=== PATIENT | female | born 1980 | race Caucasian/White ===

== ENCOUNTER 2021-12-16 23:56 | Outpatient (CLI) | payer MEDICARE, MEDICAID, SELFPAY | END 2021-12-16 23:57 | disposition home or self-care (01) | LOC: AMB 12-24 08:33 | PROVIDERS: PCP Family Medicine; Visit Provider Family Medicine | DX: M54.9 Dorsalgia, unspecified (principal); R20.0 Anesthesia of skin; F10.10 Alcohol abuse, uncomplicated | CPT/HCPCS: A0425; A0427 ==

== ENCOUNTER 2021-12-28 02:02 | Outpatient (CLI) | payer MEDICARE, MEDICAID, SELFPAY | END 2021-12-28 02:03 | disposition home or self-care (01) | PROVIDERS: PCP Family Medicine; Visit Provider Family Medicine | DX: R22.43 Localized swelling, mass and lump, lower limb, bilateral (principal); R20.2 Paresthesia of skin | CPT/HCPCS: A0425; A0429 ==

== ENCOUNTER 2021-12-28 02:31 | Emergency (ER) | payer MEDICARE, MEDICAID, SELFPAY ==
[2021-12-28 02:34] VITALS: BP 117/69; PULSE 95; RESP 16; TEMP 36.2; O2SAT 99
--- NOTE | 2021-12-28 03:54 | ED_ITS ---
HPI - General Adult General Chief complaint: Extremity Pain/Injury, Lower Stated complaint: Swollen feet Time Seen by Provider: 12/28/21 02:54 Related Data Previous Rx's Medication Instructions Recorded dextroamphetamine-amphetamine 20 20 mg PO BID #60 tabs 12/25/21 mg tablet (Adderall) Allergies Allergy/AdvReac Type Severity Reaction Status Date / Time venlafaxine Allergy Unknown Verified 12/26/21 11:07 SPICE FLAVOR AdvReac Mild Unknown Uncoded 12/26/21 11:07 [facility] Medical History ADHD, predominantly inattentive type Anemia due to acute blood loss Anxiety Diet controlled White classification A1 gestational diabetes mellitus (GDM) Gastroenteritis History of anxiety History of cervical dysplasia (2009) History of difficulty sleeping History of psychosis History of spontaneous History of use of contraceptive intrauterine device (IUD) History of vaginal delivery Multigravida of advanced maternal age Pain in pelvis care Retained products of conception with hemorrhage Transfusion of blood during current hospitalization Vaginal bleeding Surgical History History of colposcopy History of elective (1998) History of elective History of loop electrical excision procedure (LEEP) (2010) History of spinal surgery (2008) Status post dilation and curettage (01/15/19) Status post dilation and curettage Status post primary low transverse section (01/10/19) Status post primary low transverse section Status post repair of anterior cruciate ligament (1994) Social History Narrative: Single, 2 kids, smoker, currently sober, unemployed Tobacco use Smoking Status: Current every day smoker What tobacco products do you use: cigarettes Smoking packs per day: 1 Smoking cigarettes per day: 20.0 Years smoked: 25 Smoking pack-years: 25.00 Do you use any of these nicotine containing products: None Second hand tobacco smoke exposure: No How often do you have a drink containing alcohol: 4 or more times a week How many standard drinks containing alcohol do you have on a typical day: 3 or 4 How often do you have six or more drinks on one occasion: Never AUDIT-C Alcohol total score: 5 Non-prescribed substance use: denies use service: No Exam Const: Vital Signs, click to edit/add: Vital Signs - 24 hr 12/28/21 02:34 12/28/21 03:57 Temperature 97.1 F L Pulse Rate [Right Pulse Oximeter] 95 72 Respiratory Rate 16 116 H Blood Pressure [Ri ght Upper Arm] 117/69 Pulse Oximetry 99 99 Oxygen Delivery Me thod Room Air Room Air Course Course Hospital Course: We spent most of our time discussing her previous testing for her neuropathy, potential etiologies for her symptoms, and her alcohol use. I have reassured her that her foot pain has been worked up fairly extensively in the past. I do not have anything really to add to that workup at this time. I suggested that if she really is uncomfortable with the diagnosis of alcohol related neuropathy, that she be seen by a neurologist to receive a final diagnosis. I discussed that I do not think she needs any additional imaging. We spent a lot of time talking about her upcoming alcohol treatment, which she seems to have very mixed feelings about. Overall, she seems comfortable not pursuing any workup regarding her feet. She seemed to appreciate the opportunity to discuss her feelings and concerns about her alcohol use and impending treatment. She is comfortable going home. Her fiance is at home with her 2-year-old daughter, and was not able to come pick her up. We were able to find a cab service to bring her home however. I think that is reasonable, I do think she has a little alcohol on board, but she is ambulatory, she is able to hold a very reasonable conversation, and I think she is safe to discharge home via cab. Vital Signs Vital signs: Initial Vital Signs Temperature 97.1 F L 12/28/21 02:34 Temperature Source Temporal Artery Scan 12/28/21 02:34 Pulse Rate 95 12/28/21 02:34 Pulse Rhythm 12/28/21 02:34 Respiratory Rate 16 12/28/21 02:34 Blood Pressure 117/69 12/28/21 02:34 Blood Pressure Mean 85 12/28/21 02:34 Pulse Oximetry 99 12/28/21 02:34 Oxygen Delivery Method 12/28/21 02:34 Vital Signs Temperature 97.1 F L 12/28/21 02:34 Pulse Rate 95 12/28/21 02:34 Respiratory Rate 16 12/28/21 02:34 Blood Pressure 117/69 12/28/21 02:34 Pulse Oximetry 99 12/28/21 02:34 Oxygen Delivery Method 12/28/21 02:34 Temperature 97.1 F L 12/28/21 02:34 Pulse Rate 72 12/28/21 03:57 Respiratory Rate 116 H 12/28/21 03:57 Blood Pressure 117/69 12/28/21 02:34 Pulse Oximetry 99 12/28/21 03:57 Oxygen Delivery Method 12/28/21 03:57 Discharge Plan Discharge Clinical Impression: Numbness and tingling of both lower extremities Patient Disposition: Home, Self-Care Condition: Stable Instructions: Peripheral Neuropathy (ED) Additional Instructions: Continue current medications. Alcohol treatment as planned for Wednesday. Prescriptions: No Action dextroamphetamine-amphetamine [Adderall] 20 mg tablet 20 mg PO BID Qty: 60 0RF Rx Instructions: administer doses at least 4-6 hours apart Follow Up/Referrals: Buck Young MD [Primary Care Provider] - Stand Alone Forms: [employer] Info Instructions
[2021-12-28 03:57] VITALS: PULSE 72; RESP 116; O2SAT 99
--- NOTE | 2021-12-28 06:48 | ED_ITS ---
HPI - General Adult General Date Seen: 12/28/21 Chief complaint: Extremity Pain/Injury, Lower Stated complaint: Swollen feet Time Seen by Provider: 12/28/21 02:54 Source: patient History of Present Illness HPI narrative: Patient is a 41-year-old woman with a history of alcohol use and neuropathy who presents by EMS with a complaint of pain in tingling in her feet. She does have a sunburn on the tops of her feet and legs from falling asleep in the sun yesterday, but her primary complaint is pain in the bottoms of her feet. She says that her feet were cramping earlier, and she was very worried about that. She says that her problem is because of her sciatic nerve and problems in her back. She initially seemed hesitant about the diagnosis of neuropathy. She did note that she had had 4 beers today. She tells me that she is entering into alcohol therapy on Wednesday, day after tomorrow. She is living currently at home with her fiance and 2-year-old daughter. She does not have any new symptoms tonight, pain in her feet is stable and ongoing. She just became fearful about it tonight, and worried that something might be wrong with her back. She did have an MRI here couple of months ago in September that did not show any significant findings. She was hospitalized in October at which time it was felt that she would likely need custodial placement, but it would appear at this time that she is living at home. She does tell me that her diet has improved and she has gained some weight. Related Data Previous Rx's Medication Instructions Recorded dextroamphetamine-amphetamine 20 20 mg PO BID #60 tabs 12/25/21 mg tablet (Adderall) Allergies Allergy/AdvReac Type Severity Reaction Status Date / Time venlafaxine Allergy Unknown Verified 12/26/21 11:07 SPICE FLAVOR AdvReac Mild Unknown Uncoded 12/26/21 11:07 Review of Systems Status of ROS: Reports: 10 or more systems reviewed and unremarkable except as noted in History and below [facility] Medical History ADHD, predominantly inattentive type Anemia due to acute blood loss Anxiety Diet controlled White classification A1 gestational diabetes mellitus (GDM) Gastroenteritis History of anxiety History of cervical dysplasia (2009) History of difficulty sleeping History of psychosis History of spontaneous History of use of contraceptive intrauterine device (IUD) History of vaginal delivery Multigravida of advanced maternal age Pain in pelvis care Retained products of conception with hemorrhage Transfusion of blood during current hospitalization Vaginal bleeding Surgical History History of colposcopy History of elective (1998) History of elective History of loop electrical excision procedure (LEEP) (2010) History of spinal surgery (2008) Status post dilation and curettage (01/15/19) Status post dilation and curettage Status post primary low transverse section (01/10/19) Status post primary low transverse section Status post repair of anterior cruciate ligament (1994) Social History Narrative: Single, 2 kids, smoker, currently sober, unemployed Tobacco use Smoking Status: Current every day smoker What tobacco products do you use: cigarettes Smoking packs per day: 1 Smoking cigarettes per day: 20.0 Years smoked: 25 Smoking pack-years: 25.00 Do you use any of these nicotine containing products: None Second hand tobacco smoke exposure: No How often do you have a drink containing alcohol: 4 or more times a week How many standard drinks containing alcohol do you have on a typical day: 3 or 4 How often do you have six or more drinks on one occasion: Never AUDIT-C Alcohol total score: 5 Non-prescribed substance use: denies use service: No Exam Narrative: Exam Narrative: Vital signs reviewed In general, an alert conversant woman. Appears comfortable. Very thin. Head: Normocephalic, atraumatic. Eyes: Pupils are equal reactive. Extraocular movements are full. Conjunctivae are anicteric. ENT: Mucous membranes are moist. Throat is normal. Neck: Supple without lymphadenopathy. Heart: Regular rate and rhythm. No murmur or rub. Lungs: Clear bilaterally. No increased work of breathing, crackles or wheezes. Abdomen: Soft and nontender. Extremities: Slight edema bilateral feet. Pulses intact. She has erythema consistent with sunburn across the tops of both feet and shins. Neurologic: Patient is alert and oriented to person and place. Speech is fluent. Face is symmetric. Moves all extremities equally. Gait is stable. Affect: Slightly intoxicated. Skin: Warm and dry. Well perfused. Const: Vital Signs, click to edit/add: Vital Signs - 24 hr 12/28/21 02:34 12/28/21 03:57 Temperature 97.1 F L Pulse Rate [Right Pulse Oximeter] 95 72 Respiratory Rate 16 116 H Blood Pressure [Ri ght Upper Arm] 117/69 Pulse Oximetry 99 99 Oxygen Delivery Me thod Room Air Room Air Documenting provider has reviewed patient's vital signs: yes Course Course Hospital Course: We spent most of our time discussing her previous testing for her neuropathy, potential etiologies for her symptoms, and her alcohol use. I have reassured her that her foot pain has been worked up fairly extensively in the past. I do not have anything really to add to that workup at this time. I suggested that if she really is uncomfortable with the diagnosis of alcohol related neuropathy, that she be seen by a neurologist to receive a final diagnosis. I discussed that I do not think she needs any additional imaging. We spent a lot of time talking about her upcoming alcohol treatment, which she seems to have very mixed feelings about. Overall, she seems comfortable not pursuing any workup regarding her feet. She seemed to appreciate the opportunity to discuss her feelings and concerns about her alcohol use and impending treatment. She is comfortable going home. Her fiance is at home with her 2-year-old daughter, and was not able to come pick her up. We were able to find a cab service to bring her home however. I think that is reasonable, I do think she has a little alcohol on board, but she is ambulatory, she is able to hold a very reasonable conversation, and I think she is safe to discharge home via cab. Vital Signs Vital signs: Initial Vital Signs Temperature 97.1 F L 12/28/21 02:34 Temperature Source Temporal Artery Scan 12/28/21 02:34 Pulse Rate 95 12/28/21 02:34 Pulse Rhythm 12/28/21 02:34 Respiratory Rate 16 12/28/21 02:34 Blood Pressure 117/69 12/28/21 02:34 Blood Pressure Mean 85 12/28/21 02:34 Pulse Oximetry 99 12/28/21 02:34 Oxygen Delivery Method 12/28/21 02:34 Vital Signs Temperature 97.1 F L 12/28/21 02:34 Pulse Rate 95 12/28/21 02:34 Respiratory Rate 16 12/28/21 02:34 Blood Pressure 117/69 12/28/21 02:34 Pulse Oximetry 99 12/28/21 02:34 Oxygen Delivery Method 12/28/21 02:34 Temperature 97.1 F L 12/28/21 02:34 Pulse Rate 72 12/28/21 03:57 Respiratory Rate 116 H 12/28/21 03:57 Blood Pressure 117/69 12/28/21 02:34 Pulse Oximetry 99 12/28/21 03:57 Oxygen Delivery Method 12/28/21 03:57 Discharge Plan Discharge Clinical Impression: Numbness and tingling of both lower extremities Patient Disposition: Home, Self-Care Condition: Stable Instructions: Peripheral Neuropathy (ED) Additional Instructions: Continue current medications. Alcohol treatment as planned for Wednesday. Prescriptions: No Action dextroamphetamine-amphetamine [Adderall] 20 mg tablet 20 mg PO BID Qty: 60 0RF Rx Instructions: administer doses at least 4-6 hours apart Follow Up/Referrals: Buck Young MD [Primary Care Provider] - Stand Alone Forms: [employer] Info Instructions
== END 2021-12-28 04:08 | disposition home or self-care (01) ==
PROVIDERS: Emergency Provider Emergency Medicine; PCP Family Medicine
DX: R20.0 Anesthesia of skin (principal)
CPT/HCPCS: 99282; 99283

== ENCOUNTER 2022-04-09 22:48 | Outpatient (CLI) | payer MEDICARE, MEDICAID, SELFPAY ==
--- OUTSIDE RECORDS SUMMARY | 2022-05-04 21:23 | XMS_ITS | Encounter Summary ---
:1980 Author Organization [place] Address [address] [place] [address] Care Team Providers Name Role Phone Danette Shepherd MD Primary Care Provider Reason for Referral Diagnostic Imaging Ultrasound (Routine) - Closed Specialty Diagnoses / Procedures Referred By Contact Refer red To Contact Diagnoses related condition, antepartum Lolita Montoya Procedures [facility] [address] [place] [address] Referral ID Status Reason Start Date Expiration Date Visits Requ ested Visits Authorized [id number] Closed 12/19/2018 12/19/2019 1 1 Reason for Visit Diagnostic Imaging Ultrasound (Routine) - Closed Specialty Diagnoses / Procedures Referred By Contact Refer red To Contact Diagnoses related condition, antepartum Lolita Montoya Procedures [facility] [address] [place] [address] Referral ID Status Reason Start Date Expiration Date Visits Requ ested Visits Authorized [id number] Closed 12/19/2018 12/19/2019 1 1 Encounter Details Date Type Department Care Team Description 01/03/2019 Hospital Encounter [facility] Lolita Montoya [facility] [address] [place] [address] related Maternal Reba Veliz DO [address] [facility] [address] [place], [place] [address] condition, Medicine Center antepartum [place] [address] [facility] [address] [place] [address] Social History Tobacco Use Types [...] Name Priority Date/Time Associated Comments Diagnosis [facility] COMPREHENSIVE Routine 01/03/2019 12:46 relate d Results for this SINGLE F/U PM CDT condition, procedure are i n antepartum the results section. documented in this encounter Results [facility] Comprehensive Single F/U (01/03/2019 12:46 PM CDT) [...] JEWELL ESTRELLA Study Date: 12:00pm Pat. NO: [id number] Referring ??: JOSE RAUL WESTBROOK SALCEDO Site: [facility] Associate: Marce Gustafson RDMS : 1980 Age: 38 [...] 5 lb 3 ?oz EFW by ?Hadlock ([id number]) ANATOMY The following structures appear normal: Head / Neck ? Cranium. Head size. Head shape. Lateral ventricles. Midline falx. Cavum septi pellucidi. Cerebellum. Cisterna magna. Thalami. Face ? Lips. Profile. Nose. Heart / Thorax ?4-chamber view. RVOT view. LVOT view. 3-ynskab-ycamxmk view. ? Diaphragm. Abdomen ? Stomach. Kidneys. [...] 6lbs at term. Recommend biophysical profiles in [place] to assess for placental insufficiency (oligo, etc). [...] Pat. Name:Reba ESTRELLA Date:2018 12:00pm Pat. NO: [id number] MD:LOLITA Redd [facility] Site:[place]inagrapher:Marce Gustafson RDMS :1980Age:38 INDICATION Check growth METHOD [...] 5 lb 3 oz EFW by Hadlock ([id number]) ANATOMY The following structures appear normal: Head / Neck Cranium. Head size. Head sha pe. Lateral ventricles. Midline falx. Cavum septi pellucidi. Cerebellum. Cisterna magna. Thalami. Face Lips. Profile. Nose. Heart / Thorax 4-chamber view. RVOT view . LVOT view. 0-jdtoym-axfdyuh view. Diaphragm. Abdomen Stomach. Kidneys. Bladder. Spine [...] RECOMMENDATION We discussed the findings on today's [facility] with the patient. This pattern of growth is most likely re lated to constitutional smallness. Her first baby was 6lbs at term. Recommend biophysical profiles in [place] to assess for placental insufficiency (oligo, etc). [...] The BPP is reassuring. Lolita Salcedo Teresa [facility] US ORDERABLES documented in this encounter Visit Diagnoses Diagnosis related condition, antepartum documented in this encounter Care Teams Account Retention Representative Relationship Specialty Start Date End Date Danette Shepherd MD PCP - General [facility] Practice 09/13/13 12/16/21 [facility] [address] [facility] [place] [address] documented as of this encounter
--- OUTSIDE RECORDS SUMMARY | 2022-05-04 21:23 | XMS_ITS | Encounter Summary ---
:1980 Author Organization [place] Address [address] [place] [address] Care Team Providers Name Role Phone Danette Shepherd MD Primary Care Provider Reason for Referral Mental Health Outpatient (Routine) - Closed Specialty Diagnoses / Procedures Referred By Contact Refer red To Contact Diagnoses Spell of behavior change Alva Leone MD [address] [facility] [address] [place], [place] [address] Referral ID Status Reason Start Date Expiration Date Visits Requ ested Visits Authorized [id number] Closed 04/24/2019 04/23/2020 1 1 HOUSE SITTER Reason for Visit Reason Comments New Patient Encounter Details Date Type Department Care Team Description 04/24/2019 Office Visit [facility] NEUROSPECIALTIES Alva Leone of behavior 5775 Aníbal Greene MD change (Primary Dx) [place] [address] [facility] [address] [place] [address] [phone] (Wo rk) Social History Tobacco Use Types [...] Comments Blood Pressure 143/80 04/24/2019 3:53 PM PET HOUSE SITTER Pulse - - Temperature - - Respiratory Rate - - Oxygen Saturation - - Inhaled Oxygen Concentration - - Weight 57.9 kg (127 lb 9.6 oz) 04/24/2019 3:53 PM PET HOUSE SITTER Height - - Body Mass Index 20.6 [...] evaluation shows no pronator drift, normal fingertapping, tqfszd-ljve-ulseoa and rrwt-xitw-ddxj. The patient has good strength in the [...] Alva Leone MD cc: Danette Shepherd MD [address] [address] ALVA LEONE MD MT: MISTY Name: JEWELL ESTRELLA Account: [id number] : 1980 Service Date: 04/24/2019 Document: [id number] 05/04 addendum: reviewed normal EEG with mother Nelly. HOUSE SITTER documented in this encounter Plan of Treatment [...] symptoms documented in this encounter Care Teams Business Reporting Developer Relationship Specialty Start Date End Date Danette Shepherd MD PCP - General Family Practice 09/13/13 12/16/21 [facility] [address] [place] [address] documented as of this encounter
--- OUTSIDE RECORDS SUMMARY | 2022-05-04 21:23 | XMS_ITS | Encounter Summary ---
:1980 Author Organization [place] Address [address] [place] [address] Care Team Providers Name Role Phone Danette Shepherd MD Primary Care Provider Reason for Visit Reason Comments Ultrasound SGA Encounter Details Date Type Department Care Team Description 11/11/2018 PRE VISIT [facility] Maternal Tavia Garza, Ultrasound (SGA) Medicine Center BRIGID [place] [address] [facility] [address] [place] [address] Social History Tobacco Use [...] on filedocumented in this encounter Care Teams Knockdown Worker Relationship Specialty Start Date End Date Danette Shepherd MD PCP - General Family Practice 09/13/13 12/16/21 [facility] [address] [place] [address] documented as of this encounter
--- OUTSIDE RECORDS SUMMARY | 2022-05-04 21:23 | XMS_ITS | Encounter Summary ---
:1980 Author Organization [place] Address [address] [place] [address] Care Team Providers Name Role Phone Danette Shepherd MD Primary Care Provider Reason for Referral Diagnostic Imaging Ultrasound (Routine) - Closed Specialty Diagnoses / Procedures Referred By Contact Refer red To Contact Diagnoses related condition, antepartum Lolita Montoya Procedures [facility] US Comprehensive Single F/U [facility] [address] [place] [address] Referral ID Status Reason Start Date Expiration Date Visits Requ ested Visits Authorized [id number] Closed 12/19/2018 12/19/2019 1 1 Encounter Details Date Type Department Care Team Description 12/19/2018 Transcribe Orders [facility] Porfirio Shrestha, Pregn fahad related Maternal Lolita Gottlieb condition, Medicine Center [facility] antepartum (Primary [facility] Dx) [address] [facility] [address] [place] [address] [phone] Social History Tobacco Use Types Packs/Day Years Used Date Smoking Tobacco: Every Day Cigarettes 5 Comments: 5-6 cigarettes daily Alcohol Use Standard Drinks/Week Comments No 0 (1 standard drink = 0.6 oz pure alcoho l) Sex Assigned at Date Recorded Not on file documented as of this encounter Plan of Treatment Not on filedocumented as of this encounter Results [facility] US Comprehensive Single F/U (01/03/2019 12:46 PM [...] JEWELL ESTRELLA Study Date: 12:00pm Pat. NO: [id number] Referring ??: JOSE RAUL MARTINEZ Site: [facility] Cane Furniture Maker: Marce Gustafson RDMS : 1980 Age: 38 [...] 5 lb 3 ?oz EFW by ?Hadlock ([id number]) ANATOMY The following structures appear normal: Head / Neck ? Cranium. Head size. Head shape. Lateral ventricles. Midline falx. Cavum septi pellucidi. Cerebellum. Cisterna magna. Thalami. Face ? Lips. Profile. Nose. Heart / Thorax ?4-chamber view. RVOT view. LVOT view. 9-nxwvmj-horpgpr view. ? Diaphragm. Abdomen ? Stomach. Kidneys. [...] 6lbs at term. Recommend biophysical profiles in [place] to assess for placental insufficiency (oligo, etc). [...] [place]. Name:Reba ESTRELLA Date:2018 12:00pm Pat. NO: [id number] MD:LOLITA Redd [facility]Marce Gustafson RDMS :1980Age:38 INDICATION Check growth [...] 5 lb 3 oz EFW by Hadlock ([id number]-FL) ANATOMY The following structures appear normal: Head / Neck Cranium. Head size. Head sha pe. Lateral ventricles. Midline falx. Cavum septi pellucidi. Cerebellum. Cisterna magna. Thalami. Face Lips. Profile. Nose. Heart / Thorax 4-chamber view. RVOT view . LVOT view. 7-nzplki-jkvping view. Diaphragm. Abdomen Stomach. Kidneys. Bladder. Spine [...] 6lbs at term. Recommend biophysical profiles in [place] to assess for placental insufficiency (oligo, etc). [...] The BPP is reassuring. Lolita Shrestha IMTeresa [facility] US ORDERABLES documented in this encounter Visit Diagnoses Diagnosis related condition, antepartum - Primary related condition, antepartum documented in this encounter Care Teams Padded Products Inspector Trimmer Relationship Specialty Start Date End Date Danette Shepherd MD PCP - General Family Practice 09/13/13 12/16/21 [facility] [address] [place] [address] documented as of this encounter
--- OUTSIDE RECORDS SUMMARY | 2022-05-04 21:23 | XMS_ITS | Encounter Summary ---
:1980 Author Organization [place] Address [address] [place] [address] Care Team Providers Name Role Phone Danette [...] on filedocumented in this encounter Care Teams Forest Fire Prevention Specialist Relationship Specialty Start Date End Date Danette Shepherd MD PCP - General Family Practice 09/13/13 12/16/21 [facility] [address] [place] [address] documented as of this encounter
--- OUTSIDE RECORDS SUMMARY | 2022-05-04 21:23 | XMS_ITS | Encounter Summary ---
:1980 Author Organization [place] Address [address] [place] [address] Care Team Providers Name Role Phone Danette Shepherd MD Primary Care Provider Reason for Referral Diagnostic Imaging Ultrasound (Routine) - Closed Specialty Diagnoses / Procedures Referred By Contact Refer red To Contact Diagnoses related condition, antepartum Tanya Watson NP Procedures [facility] [address] [place] [address] Fax: Referral ID Status Reason Start Date Expiration Date Visits Requ ested Visits Authorized [id number] Closed 11/08/2018 11/08/2019 1 1 (Routine) - Closed Specialty Diagnoses / Procedures Referred By Contact Refer red To Contact Diagnoses related condition, antepartum Tanya Watson NP [facility] [address] [place] [address] Fax: Referral ID Status Reason Start Date Expiration Date Visits Requ ested Visits Authorized [id number] Closed 11/08/2018 11/08/2019 1 1 Encounter Details Date Type Department Care Team Description 11/08/2018 [facility] Tanya Watson P regnancy related Maternal TRUCK TRAILER FINAL INSPECTOR condition, Medicine Center [facility] antepartum (Primary [facility] Dx) [address] [address] [phone] Social History Tobacco Use Types Packs/Day Years [...] 05/07/2019 documented as of this encounter Results [facility] Comprehensive Single (11/16/2018 2:24 PM CDT) Anatomical [...] JEWELL ESTRELLA Study Date: 1:26pm Pat. NO: [id number] Referring ??MD: ANGEL KITCHEN Site: [facility] Customer Service Representative Teller: Tanya Willett RD MS : 1980 Age: [...] 2 lb 9 ?oz EFW by ?Hadlock ([id number]) Head / Face / Neck Biometry: Dental Laboratory Assistant ? 2.2 ? mm CM ?6.5 ? [...] cava. Inferior vena cava. 3-vessel view. ? 2-vmvfie-ynjxsck view. Cardiac position. Cardiac size. Cardiac rhythm. [...] Pat. Name:Reba ESTRELLA Date:2018 1:26pm Pat. NO: [id number] MD:BIANCA KITCHEN [facility]:Tanya Willett RDMS :1980Age:38 INDICATION SGA on outside [...] 2 lb 9 oz EFW by Hadlock ([id number]-FL) Head / Face / Neck Biometry: Dental Laboratory Assistant 2.2 mm CM 6.5 mm Nasal bone [...] vena cava. Inferior vena cava. 3-vessel view. 5-xwkakr-fhnbtsg view. Cardiac position . Cardiac size. Cardiac [...] antepartum documented in this encounter Care Teams Self Pay Representative Relationship Specialty Start Date End Date Danette Shepherd MD PCP - General Family Practice 09/13/13 12/16/21 [facility] [address] [place] [address] documented as of this encounter
--- OUTSIDE RECORDS SUMMARY | 2022-05-04 21:23 | XMS_ITS | Clinical Summary ---
:1980 Author Organization [place] Address [address] [place] [address] Care Team Providers Name Role Phone [facility], [facility] Primary Care Provider [phone] Allergies Active Allergy Reactions Severity Noted [...] (127 lb 9.6 oz) 04/24/2019 3:53 PM CONSULTING BUSINESS DEVELOPER Height 167.6 cm (5' 6) 09/02/2017 11:17 [...] Dates Phone Addre ss Type Group [facility] [id number] 2021-Presen [phone] [address] HMO t 0 [place] [address] MEDICARE MEDICARE [id number] 2017-Presen [phone] ATTN CL AIMS Medicare t 0 [address] [place] [address] Guarantor Name Account Type Relation to Date of Phone Billing Patient Address Jewell Lambert Personal/Family Self 1980 [phone] (Home) [place] [address] Jewell Lambert Personal/Family Self 1980 [phone] [address] (Home) [place] [address] Jewell Lambert Personal/Family Self 1980 [phone] (Home) [place] [address] Jewell Lambert Worker's Self 1980 [phone] [employer] 4 (Home) [place] [id number] Care Teams Trade Facilitator Relationship Specialty Start Date End Date [facility] PCP - General 12/17/21 [address] [place] [address]
--- OUTSIDE RECORDS SUMMARY | 2022-05-04 21:23 | XMS_ITS | Encounter Summary ---
:1980 Author Organization [place] Address [address] [place] [address]. [place] [address] Care Team Providers Name Role Phone Danette Shepherd MD Primary Care Provider Reba Veliz DO Unavailable [phone] Jairon Greene MD Unavailable [facility], Rosette [place] Primary Care Provider [phone] Reason for Referral (Routine) - Closed Specialty Diagnoses / Procedures Referred By Contact Refer red To Contact Diagnoses related condition, antepartum Tatiana Montoya [facility] [address] [place] [address] Referral ID Status Reason Start Date Expiration Date Visits Requ ested Visits Authorized [id number] Closed 12/19/2018 12/19/2019 1 1 Encounter Details Date Type Department Care Team Description 12/19/2018 Transcribe Orders [facility] Porfirio Shrestha, Pregn fahad related Maternal Tatiana Gottlieb condition, Medicine Center [facility] antepartum (Primary [facility] Dx) [address] 1999 [facility] [address] [place] [address] [phone] Social History Tobacco Use Types Packs/Day Years [...] Primary documented in this encounter Care Teams Ditch Digger Relationship Specialty Start Date End Date Danette Shepherd MD PCP - General Family Practice 09/13/13 12/16/21 [facility] [address] [place] [address] [facility] PCP - General 12/17/21 [place] [address] [place] [address] Reba Veliz Assigned OBGYN Provider 03/15/20 07/06/20 DO Silvina [address] [facility] [address] [place] [address] Jairon Greene, Assigned Neuroscience 03/15/20 10/26/20 Provider 420 [facility] [address] [place] [address] documented as of this encounter
--- OUTSIDE RECORDS SUMMARY | 2022-05-04 21:23 | XMS_ITS | Encounter Summary ---
:1980 Author Organization [place] Address [address] [place] [address]. [place] [address] Care Team Providers Name Role Phone Danette [...] W/O CONTRAST HC DOPPLER ECHO PULSED, [place] [address] HC DOPPLER ECHO PULSED, F/U OR LIMITED HC DOPPLER ECHO COLOR FLOW VELOCITY MAP Referral ID Status Reason Start Date Expiration Date Visits Requ ested Visits Authorized [id number] Closed 11/16/2018 11/16/2019 1 1 Reason for Visit Reason Comments Ultrasound L2-EFW 8 % on outside US Encounter Details Date Type Department Care Team Description 11/16/2018 Office Visit [facility] Tanya Watson, [facility] [address] [place] [address] Suspected Maternal Camille Ponce MD [address] [place] [address] [place] [address] anomaly, antepartum, Medicine Center single or un specified Kristine fetus (Primary Dx) [address] [place] [phone] Social History Tobacco Use Types Packs/Day Years [...] AM CDT Narrative 12/16/2018 11:50 AM CDT [id number]^KRIS^CAMILLE^KENDRA ?Study ID: [id number] ?[facility] ?[facility] ?[address] ?[place] [address] ? Echocardiogram __ Name: CRISTINABRADLEYJEWELL Study Date: [...] 01/28/2019. Gestational age: 33+6. Deliver y at: [place]. Specific Indication: echocar diogram performed for fetus [...] the left atriu m. There is laminar ckkwh-mq-ucky shunting across the foramen ovale. Atrioventricular valves: [...] note might be different from the original. [id number]^KRIS^CAMILLE^KENDRA Study ID: [id number] [facility]'[address] [address] Echocardiogram __ Name: JEWELL ESTRELLA Study Date: 12/16/2018 11:00 AM Patient Location: [facility] Gender: Female Patient Class: Outpatient : 1980 Age: 38 yrs Ordering Provider: CAMILLE PONCE Referring Provider: CAMILLE PONCE Performed By: Sidra Gonsalves RDCS Reading Physician: Nathaly Steel MD Reason For Study: Suspected anomal y, antepartum, single or unspecified fetus Data: Number of fetuses: This is a headley gestation. Due date: 01/28/2019. Gestational age: 33+6. Deliver y at: [place]. Specific Indication: echocar diogram performed for fetus [...] the left atriu m. There is laminar mrhju-ga-bgep shunting across the foramen ovale. Atrioventricular valves: [...] fetus documented in this encounter Care Teams Floor Cashier Relationship Specialty Start Date End Date Danette Shepherd MD PCP - General Family Practice 09/13/13 12/16/21 [facility] [address] [place] [address] documented as of this encounter
--- OUTSIDE RECORDS SUMMARY | 2022-05-04 21:23 | XMS_ITS | Encounter Summary ---
:1980 Author Organization [place] Address [facility] [place] [address] Care Team Providers Name Role Phone Danette Shepherd MD Primary Care Provider Reba Veliz DO Unavailable [phone] Jairon Greene MD Unavailable Reason for Visit Reason Comments Results Encounter Details Date Type Department Care Team Description 01/04/2018 [facility] Nereyda Beatty [address] [address] Social History Tobacco Use Types [...] on filedocumented in this encounter Care Teams Electric Motor Winders Assembler Relationship Specialty Start Date End Date Danette Shepherd MD PCP - General Family Practice 09/13/13 12/16/21 [facility] [address] [place] [address] Reba Veliz Assigned OBGYN Provider 03/15/20 07/06/20 DO Silvina [address] [facility] [address] [place] [address] Jairon Greene, Assigned Neuroscience 03/15/20 10/26/20 Provider 420 [facility] [address] [place] [address] documented as of this encounter
--- OUTSIDE RECORDS SUMMARY | 2022-05-04 21:23 | XMS_ITS | Encounter Summary ---
:1980 Author Organization [place] Address [address] [place] [address] Care Team Providers Name Role Phone Danette [...] W/O CONTRAST HC DOPPLER ECHO PULSED, [place] [address] HC DOPPLER ECHO PULSED, F/U OR LIMITED HC DOPPLER ECHO COLOR FLOW VELOCITY MAP Referral ID Status Reason Start Date Expiration Date Visits Requ ested Visits Authorized [id number] Closed 11/16/2018 11/16/2019 1 1 Reason for [...] W/O CONTRAST HC DOPPLER ECHO PULSED, [place] [address] HC DOPPLER ECHO PULSED, F/U OR LIMITED HC DOPPLER ECHO COLOR FLOW VELOCITY MAP Referral ID Status Reason Start Date Expiration Date Visits Requ ested Visits Authorized [id number] Closed 11/16/2018 11/16/2019 1 1 Encounter Details Date Type Department Care Team Description 12/16/2018 [facility] anomaly, antepartum, [facility] [address] [facility] e or [facility] [place] [address] unspecified fetus [address] [facility] [place] [place], [place] [address] Social History Tobacco Use Types Packs/Day [...] AM CDT Narrative 12/16/2018 11:50 AM CDT [id number]^PONCE^CAMILLE^KENDRA ?Study ID: [id number] ?[facility] ?[facility] ?[address] ?[place] [address] ? Echocardiogram __ Name: JEWELL ESTRELLA Study Date: 12/16/2018 11:00 AM ? Patient Location: [facility] Gender: Female ?Patient Class: Outpatient : 1980 ? Age: 38 yrs Ordering Provider: CAMILLE PONCE Referring Provider: CAMILLE PONCE Performed By: Sidra Gonsalves RDCS Reading Physician: Nathaly Steel MD Reason For Study: Suspected anomal y, antepartum, single or unspecified fetus Data: Number of fetuses: This is a headley gestation. Due date: 01/28/2019. Gestational age: 33+6. Deliver y at: [place]. Specific Indication: echocar diogram performed for fetus [...] the left atriu m. There is laminar celqn-rx-crmg shunting across the foramen ovale. Atrioventricular valves: [...] note might be different from the original. [id number]^KRIS^CAMILLE^KENDRA Study ID: [id number] [facility] [address] [place] [address] Echocardiogram __ Name: JEWELL ESTRELLA Study Date: 12/16/2018 11:00 AM Patient Location: [facility] Gender: Female Patient Class: Outpatient : 1980 Age: 38 yrs Ordering Provider: CAMILLE PONCE Referring Provider: CAMILLE PONCE Performed By: Sidra Gonsalves RDCS Reading Physician: Nathaly Steel MD Reason For Study: Suspected anomal y, antepartum, single or unspecified fetus Data: Number of fetuses: This is a headley gestation. Due date: 01/28/2019. Gestational age: 33+6. Deliver y at: [place]. Specific Indication: echocar diogram performed for fetus [...] the left atriu m. There is laminar sdzmi-gh-mhwm shunting across the foramen ovale. Atrioventricular valves: [...] fetus documented in this encounter Care Teams Electronic Data Interchange Specialist Relationship Specialty Start Date End Date Danette Shepherd MD PCP - General Family Practice 09/13/13 12/16/21 [facility] [address] [place] [address] documented as of this encounter
--- OUTSIDE RECORDS SUMMARY | 2022-05-04 21:23 | XMS_ITS | Encounter Summary ---
:1980 Author Organization [place] Address [facility] [place] [address] Care Team Providers Name Role Phone Danette Shepherd MD Primary Care Provider Reason for Visit Reason Comments Ultrasound growth Encounter Details Date Type Department Care Team Description 01/03/2019 Office Visit [facility] Ksenia Shrestha [facility] [address] [place] [address] Small for gestational Maternal Reba Veliz DO [address] [place] [address] [place], [place] [address] age fetus affecting Medicine Center management o f mother, Opp third trimester, not [address] [place] applicab le or [address] unspecified fetus [place], [place] (Primary Dx) [address] Social History Tobacco [...] y documented in this encounter Care Teams X Ray Operator Relationship Specialty Start Date End Date Danette Shepherd MD PCP - General Family Practice 09/13/13 12/16/21 [facility] [address] [place] [address] documented as of this encounter
--- OUTSIDE RECORDS SUMMARY | 2022-05-04 21:23 | XMS_ITS | Encounter Summary ---
:1980 Author Organization [place] Address [address] [place] [address]. [place] [address] Care Team Providers Name Role Phone Danette Shepherd MD Primary Care Provider Encounter Details Date Type Department Care Team Description 12/14/2017 [facility] [place] [phone] [place] [address] (Wo rk) Social History Tobacco [...] on filedocumented in this encounter Care Teams Rack Room Worker Relationship Specialty Start Date End Date Danette Shepherd MD PCP - General Family Practice 09/13/13 12/16/21 [facility] [address] [place] [address] documented as of this encounter
--- OUTSIDE RECORDS SUMMARY | 2022-05-04 21:23 | XMS_ITS | Encounter Summary ---
:1980 Author Organization [place] Address [address] [place] [address] Care Team Providers Name Role Phone Danette [...] on filedocumented in this encounter Care Teams Unified Communications Engineer Relationship Specialty Start Date End Date Danette Shepherd MD PCP - General Family Practice 09/13/13 12/16/21 [facility] [address] [place] [address] documented as of this encounter
--- OUTSIDE RECORDS SUMMARY | 2022-05-04 21:23 | XMS_ITS | Encounter Summary ---
:1980 Author Organization [place] Address [address] [place] [address] Care Team Providers Name Role Phone Danette [...] on filedocumented in this encounter Care Teams Development Coach Relationship Specialty Start Date End Date Danette Shepherd MD PCP - General Family Practice 09/13/13 12/16/21 [facility] [address] [place] [address] documented as of this encounter
--- OUTSIDE RECORDS SUMMARY | 2022-05-04 21:23 | XMS_ITS | Encounter Summary ---
:1980 Author Organization [place] Address [address] [place] [address] Care Team Providers Name Role Phone Clinic, [facility] Primary Care Provider [phone] Reason for Visit Reason Comments Back Pain Encounter Details Date Type Department Care Team Description 12/17/2021 Emergency [facility] Mitra Carroll, Beryl fall bilateral low [facility] back pain with [address] [facility] bilateral sciatica [facility] [phone] [facility] [phone] [place], [place] [address] (Wo rk) Social History [...] History: ACL repair Lumbar arthoplasty and fusion Seminary teeth extraction Leep procedure Family History: Mother-Anxiety [...] instrumentation, arachnoiditis, an infectious/inflammatory process (such as Guillain-Mooers syndrome, Lyme disease or chronic inflammatory demyelinating [...] Bilirubin Urine Negative Ketones Urine Negative Specific Lugoff Urine 1.002 (*) Blood Urine Negative pH [...] this time. Patient does live in the [facility], Lyme testing was obtained and pending. Advised [...] is NEGATIVE. No change in treatment per [facility] ED Lab Result Lyme Disease [...] Phon e Number [facility] SPECIAL[facility] CORE/PROT/ENDO Specialty [place], [place] [address] Core/Prot/Endo [address] [facility] [address] Building, Room 3-[facility] Lumbar spine MRI w & w/o [...] instrumentation, arachnoiditis, an infectious/inflammatory process (such as Guillain-Mooers syndrome, Lyme disease or chronic inflammatory demyelinating polyneuropathy) or even leptomeningeal metastatic disease (if the patient has a history of malignancy), among other etiologies. Narrative 12/17/2021 6:27 AM CDT EXAM: MR LUMBAR SPINE WITHOUT AND WITH CONTRAST LOCATION: [facility] DATE/TIME: 12/17/2021, 3:26 AM INDICATION: Low back [...] neural foraminal stenosis. L5-S1: Interbody spacer placement. Phillips us fusion. Bilateral facet arthropathy. Dorsal osteophytic ridging along the midline. No significant central spinal canal stenosis. No significant neural foraminal stenosis. Procedure Note Nick Kathleen MD - 12/17/2021Form atting of this note might be different from the original. EXAM: MR LUMBAR SPINE WITHOUT AND WITH C ONTRAST LOCATION: [facility] DATE/TIME: 12/17/2021, 3:26 AM INDICATION: Low back [...] neural foraminal stenosis. L5-S1: Interbody spacer placement. Phillips us fusion. Bilateral facet arthropathy. Dorsal osteophytic [...] instrumentation, arachnoiditis, an infectious/inflammatory process (such as Guillain-Mooers syndrome, Lyme disease or chronic inflammatory demyelinating polyneuropathy) or even leptomeningeal metastatic disease (if the patient has a history of malignancy), among other etiologies. Mitra Carroll MD IMG MRI ORDERABLES iStat HCG Qualitative , POCT (12/17/2021 2:14 AM CDT) [facility] Method Time Signature HCG Negative Negative, [...] Code Phon e [place] [address] Care Lab [address] Lab (1st floor, no room number) (ABNORMAL) UA with Microscopic reflex to Culture (12/17/2021 2:06 AM CDT) [facility] Method Time Signature Color Urine Straw Colorless, 12/17/2021 [facility] Straw, Light 2:17 AM CDT Yellow, Yellow Appearance Urine Clear Clear 12/17/2021 RH LABORATOR Y 2:17 AM CDT Glucose Urine Negative Negative 12/17/2021 [facility] mg/dL 2:17 AM CDT Bilirubin Urine Negative Negative 12/17/2021 [facility] 2:17 AM CDT Ketones Urine Negative Negative 12/17/2021 [facility] mg/dL 2:17 AM CDT Specific Lugoff 1.002 (L) 1.003 - 12/17/2021 RH LABORATOR [...] Address City/State/ZIP [place] [phone] Care Lab [address] Lab (1st floor, no room number) [...] Address City/State/ZIP [place] [phone] Care Lab [address] Lab (1st floor, no room number) [...] Address City/State/ZIP [place] [address] Care Lab [address] Lab (1st floor, no room number) [...] LAB - BLOOD ORDERABLES Performing Organization Address City/[facility]/ZIP Code [place] [address] Care Lab [address] Lab (1st floor, no room number) [...] and gender (Antoinette et al., NEJM, DOI: 10.1056/[id number]) Specimen Anatomical Collection Method / Collection Time Recei gisele Time (Source) Location / Volume Laterality Blood VENOUS LINE / Venipuncture / 12/17/2021 2:05 07/27/202 2 2:10 Unknown Unknown AM CDT AM CDT Mitra Carroll MD LAB - BLOOD ORDERABLES Performing Organization Address City/State/[place] [address] Care Lab [address] [...] analgesic side effects. Hold while on IV DATA INTEGRATION ARCHITECT or with regular IV opioid dosing. sodium [...] analgesic side effects. Hold while on IV DATA INTEGRATION ARCHITECT or with regular IV opioid dosing. documented in this encounter Care Teams Chemical Checker Relationship Specialty Start Date End Date [facility], [facility] PCP - General 12/17/[address] [place] [address] documented as of this encounter
--- OUTSIDE RECORDS SUMMARY | 2022-05-04 21:23 | XMS_ITS | Encounter Summary ---
:1980 Author Organization [place] Address [facility] [place] [address] Care Team Providers Name Role Phone Danette Shepherd MD Primary Care Provider Reba Veliz DO Unavailable [phone] Jairon Greene MD Unavailable Encounter Details Date Type Department Care Team Description 01/06/[address] [address] Social History Tobacco Use Types [...] on filedocumented in this encounter Care Teams Home Appliances Mechanic Relationship Specialty Start Date End Date Danette Shepherd MD PCP - General Family Practice 09/13/13 12/16/21 [facility] [address] [place] [address] Reba Veliz Assigned OBGYN Provider 03/15/20 07/06/20 DO Silvina 60 24[facility] [address] [place] [address] Jairon Greene, Assigned Neuroscience 03/15/20 10/26/20 Provider 420 [facility] [address] [place] [address] documented as of this encounter
--- OUTSIDE RECORDS SUMMARY | 2022-05-04 21:23 | XMS_ITS | Encounter Summary ---
:1980 Author Organization [place] Address [address] [place] [address] Care Team Providers Name Role Phone Danette [...] on filedocumented in this encounter Care Teams Wool Buyer Relationship Specialty Start Date End Date Danette Shepherd MD PCP - General Family Practice 09/13/13 12/16/21 [facility] [address] [place] [address] documented as of this encounter
--- OUTSIDE RECORDS SUMMARY | 2022-05-04 21:23 | XMS_ITS | Encounter Summary ---
:1980 Author Organization [place] Address [address] [place] [address] Care Team Providers Name Role Phone Danette Shepherd MD Primary Care Provider Reason for Visit Reason Onset Date Comments Previsit 11/04/2017 SI JOINT PAIN Encounter Details Date Type Department Care Team Description 11/04/2017 PRE VISIT [facility] Taye Scott (SI JOINT PAIN Clinic MD [place] ) [address] [place] [address] [phone] Social History Tobacco Use Types Packs/Day Years [...] Date: 11/04/17 ?? Time: 1400 ?? Location: [facility] REFERRAL INFORMATION: ?? Referring provider: N/A ?? Referring providers clinic: N/A ?? Reason for visit/diagnosis SI JOINT RECORDS STATUS LAST SEEN IN 2013 NO RECENT RECORDS documented in this encounter Plan of Treatment Not on filedocumented as of this encounter Visit Diagnoses Not on filedocumented in this encounter Care Teams Visualizer Relationship Specialty Start Date End Date Danette Shepherd MD PCP - General Family Practice 09/13/13 12/16/21 [facility] [address] [place] [address] documented as of this encounter
--- OUTSIDE RECORDS SUMMARY | 2022-05-04 21:23 | XMS_ITS | Encounter Summary ---
:1980 Author Organization [place] Address [address] [place] [address] Care Team Providers Name Role Phone Danette Shepherd MD Primary Care Provider Reba Veliz DO Unavailable [phone] Jairon Greene MD Unavailable Reason for Visit Reason Comments Advice Only FB in left sinus cavity sinc e sept, brought upper dental xrays, referred by Dr Hagen Sinus Problem clicking - pressure in left sinus cavity when bending over Encounter Details Date Type Department Care Team Description 12/08/2017 Office Visit - [facility] Shay Barrientos MD Sinus pressure [facility] E[facility] [address] [place] [address] [address] [place] [address] [phone] (Wo rk) Social History Tobacco Use Types [...] Paranasal sinuses non tender EARS Clinical speech blasting clay miner threshold: Normal, able to hear normal speech. [...] air-fluid levels. Narrative 12/15/2017 1:[address] [facility] SINUS WO CONTRAST 12/14/2017 1:42 [...] note might be different from the original. [facility] CT SINUS WO CONTRAST 12/14/2017 1:42 [...] es documented in this encounter Care Teams Bearing Grinder Relationship Specialty Start Date End Date Danette Shepherd MD PCP - General Family Practice 09/13/13 12/16/21 [facility] [address] [place] [address] Reba Veliz Assigned OBGYN Provider 03/15/20 07/06/[address] [facility] [address] [place] [address] Jairon Greene, Assigned Neuroscience 03/15/20 10/26/20 Provider 420 [facility] [address] [place] [address] documented as of this encounter
--- OUTSIDE RECORDS SUMMARY | 2022-05-04 21:23 | XMS_ITS | Encounter Summary ---
:1980 Author Organization [place] Address [address] [place] [address] Care Team Providers Name Role Phone Danette Shepherd MD Primary Care Provider Reason for Visit Reason Onset Date Comments Appointment 03/21/2019 Who to schedule with Encounter Details Date Type Department Care Team Description 03/21/2019 Telephone [facility] Neurology None Appointment (Who to [address] [place] [address] schedule with) 3rd Floor [place] [phone] Social History Tobacco Use Types Packs/Day [...] Isadora Davenport - 03/21/2019 4:28 PM CDT [facility] Call Center Phone Message May a detailed message be left on voicemail: yes Reason for Call: Question regarding specialist protocol Please follow protocols- only utilize this documentation for questions or concerns that are not clear in the protocol. Contact clinic directly to clarify question(s) via phone or Endra message. Was Clinic Available: yes - told [...] on filedocumented in this encounter Care Teams Furnace Mechanic Helper Relationship Specialty Start Date End Date Danette Shepherd MD PCP - General Family Practice 09/13/13 12/16/21 [facility] [address] [place] [address] documented as of this encounter
--- OUTSIDE RECORDS SUMMARY | 2022-05-04 21:23 | XMS_ITS | Encounter Summary ---
:1980 Author Organization [place] Address [address] [place] [address] Care Team Providers Name Role Phone Danette Shepherd MD Primary Care Provider Reason for Visit Reason Comments EEG Encounter Details Date Type Department Care Team Description 05/03/2019 [facility] Health/Nurse [facility] Jairon Greene EEG Visit [address] [place], [place] [address] [place], [place] [phone] (Wo rk) Social History Tobacco Use Types Packs/Day Years Used Date Smoking Tobacco: Every Day Cigarettes 5 Smokeless Tobacco: Never Comments: 5-6 cigarettes daily Alcohol Use Standard Drinks/Week Comments No 0 (1 standard drink = 0.6 oz pure alcoho l) Sex Assigned at Date Recorded Not on file documented as of this encounter Progress Notes Ailyn Stewart - 05/03/2019 1:00 PM CST CPT 34480-19 OP/3hr Video EEG [facility]. Disla reading DMASTER documented in this encounter Procedure Notes Floyd Disla MD - 05/03/2019 5:07 PM CSTAssociated Order(s): EEG [facility] EEG #[id number] (Out-Patient Video-EEG Monitoring) Name: Jewell Estrella : [...] monitoring was utilized and periodically reviewed by apparatus engineering technologist and the physician for electroclinical correlation. [...] Neurology MT: LJ Name: JEWELL ESTRELLA Account: [id number] : 1980 Procedure Date: 05/03/2019 Document: [id number] DMASTER documented in this encounter Plan of Treatment Scheduled Orders Name Type Priority Associated Diagnoses Order S chedule CHARGE: Video EEG < Procedures Routine Spell of behavior karolyn nge Ordered: 05/03/2019 12 hours ([id number]) documented as of this encounter Procedures Procedure Name Priority Date/Time Associated Diagnosis Comme nts EEG ROUTINE 05/03/2019 5:07 PM Results f or this POUNDMASTER procedure are i n the results section . documented in this encounter Results EEG (05/03/2019 5:07 PM POUNDMASTER) Procedure Note Floyd Disla MD - 05/03/2019 5:07 PM CST [facility] #[id number] (Out-Patient Vi sergo-EEG Monitoring) Name: Jewell Estrella [...] monitoring was utilized and periodically reviewed by apparatus engineering technologist and the physician for electroclinical correlation. [...] RUBEN Name: JEWELL ESTRELLA MRN: [id number] Account: [id number] : 1980 Procedure Date: 05/03/20 19 Document: [id number] Floyd Disla MD IMG EEG ORDERABLES documented in this encounter Visit Diagnoses Diagnosis Spell of behavior change Other general symptoms documented in this encounter Care Teams Brimmer Blocker Relationship Specialty Start Date End Date Danette Shepherd MD PCP - General Family Practice 09/13/13 12/16/21 [facility] [address] [place] [address] documented as of this encounter
--- OUTSIDE RECORDS SUMMARY | 2022-05-04 21:23 | XMS_ITS | Encounter Summary ---
:1980 Author Organization [place] Address [address] [place] [address] Care Team Providers Name Role Phone Danette [...] on filedocumented in this encounter Care Teams Leather Flesher Relationship Specialty Start Date End Date Danette Shepherd MD PCP - General Family Practice 09/13/13 12/16/[address] [facility] [address] [place] [address] documented as of this encounter
--- OUTSIDE RECORDS SUMMARY | 2022-05-04 21:23 | XMS_ITS | Encounter Summary ---
:1980 Author Organization [place] Address [address] [place] [address] Care Team Providers Name Role Phone Danette Shepherd MD Primary Care Provider Reason for Referral Diagnostic Imaging Ultrasound (Routine) - Closed Specialty Diagnoses / Procedures Referred By Contact Refer red To Contact Diagnoses related condition, antepartum Tanya Watson NP Procedures [facility] [address] [place] [address] Fax: Referral ID Status Reason Start Date Expiration Date Visits Requ ested Visits Authorized [id number] Closed 11/08/2018 11/08/2019 1 1 Reason for Visit Diagnostic Imaging Ultrasound (Routine) - Closed Specialty Diagnoses / Procedures Referred By Contact Refer red To Contact Diagnoses related condition, antepartum Tanya Watson NP Procedures [facility] [address] [place] [address] Fax: Referral ID Status Reason Start Date Expiration Date Visits Requ ested Visits Authorized [id number] Closed 11/08/2018 11/08/2019 1 1 Encounter Details Date Type Department Care Team Description 11/16/2018 Hospital Encounter [facility] Dre Watson NP [facility] [address] [place] [address] related Maternal Camille Grijalva MD [address] [phone] condition, Medicine Center antepartum [place] [facility] [address] [facility] [address] [place] [address] Social History Tobacco Use Types [...] Procedure Name Priority Date/Time Associated Comments Diagnosis [facility] US COMPREHENSIVE Routine 11/16/2018 2:24 PM rela alicia Results for this SINGLE CDT condition, procedure are i n antepartum the results section. documented in this encounter Results [facility] US Comprehensive Single (11/16/2018 2:24 PM [...] JEWELL ESTRELLA Study Date: 1:26pm Pat. NO: [id number] Referring ??MD: ANGEL KITCHEN Site: [facility] Active Directory Specialist: Tanya Willett RD MS : 1980 Age: [...] 2 lb 9 ?oz EFW by ?Hadlock ([id number]) Head / Face / Neck Biometry: Warehouse Distribution Associate ? 2.2 ? mm CM ?6.5 ? [...] cava. Inferior vena cava. 3-vessel view. ? 8-bxxfpu-tygpowy view. Cardiac position. Cardiac size. Cardiac rhythm. [...] Pat. Name:Reba ESTRELLA Date:2018 1:26pm Pat. NO: [id number] MD:BIANCA KITCHEN [facility]:Tanya Willett RDMS :1980Age:38 INDICATION [...] 2 lb 9 oz EFW by Hadlock ([id number]) Head / Face / Neck Biometry: Warehouse Distribution Associate 2.2 mm CM 6.5 mm Nasal bone [...] vena cava. Inferior vena cava. 3-vessel view. 8-nxnaha-msxkjvy view. Cardiac position . Cardiac size. Cardiac [...] long and closed. Tanya Watson NP IMG [facility] US ORDERABLES documented in this encounter Visit Diagnoses Diagnosis related condition, antepartum documented in this encounter Care Teams Napper Grinder Relationship Specialty Start Date End Date Danette Shepherd MD PCP - General Family Practice 09/13/13 12/16/21 [facility] [address] [place] [address] documented as of this encounter
--- OUTSIDE RECORDS SUMMARY | 2022-05-04 21:24 | XMS_ITS | Encounter Summary ---
:1980 Author Organization [place] Address [address] [place] [address] Care Team Providers Name Role Phone Pedro Burt MD Primary Care Provider Encounter Details Date Type Department Care Team Description 07/02/2010 Office Visit-[facility] Orthopaedic Clinic Taye Fuentes [facility] MD [place] [address] [address], [address] [place] [phone] Social History Tobacco Use Types Packs/Day Years Used Date Smoking Tobacco: Every Day Cigarettes 5 Comments: 5-6 cigarettes daily Alcohol Use Standard Drinks/Week Comments No 0 (1 standard drink = 0.6 oz pure alcoho l) Sex Assigned at Date Recorded Not on file documented as of this encounter Progress Notes Taye Fuentes - 07/02/2010 10:00 AM CST Professor Of Physics: Taye Fuentes Status: Final - Signature Encounter: 02 Jul 2010 Type: U Ortho Visit Department of Orthopaedic Surgery Administration: [address], [address] [place] [phone] or [phone] Appointments [email or web address] Mail Address: [place] [address], [address] [place] [address] Harjinder Key MD General Orthopaedics Winter Wilkinson [...] will proceed with this with[facility]. If the manual therapy is not helpful in eliminating this problem we have suggested that another injection with documented relief may be helpful. We did discuss with her and showed a model of the iFuse by SI-Bone, the technology that we use for SI joint fusion. We spent over 1 hour with Jewell and her mother as well as her [facility] today. Greater than 50% in counseling and [...] Ins [facility] [address] [place] [address] PCP Macel Thesis Thesis Case Management [address] [place] [address] Electronically signed by:Taye Fuentes M.D. Jul 17 2010 9:33AM RETAIL PHARMACY TECHNICIAN [place] PHARMACY TECHNICIAN Taye Fuentes - 07/02/2010 10:00 AM CST Professor Of Physics: Taye Fuentes Status: Final - Signature Encounter: 02 Jul 2010 Type: U Ortho Letter Department of Orthopaedic Surgery Administration: [address], [address] [place] [address] or [phone] Appointments [email or web address] Mail Address: [address], [address] [place] [address] Harjinder Key MD General Orthopaedics [place] [...] 02, 2010 Ms. Ailyn Patricio Case Management [address] [address] [facility] [address] RE: Jewell Estrella : 1980 DOS: July [...] by:Taye Fuentes M.D. Jul 03 2010 10:45AM RETAIL PHARMACY TECHNICIAN [place] PHARM[place]Y TECHNICIAN Taye Fuentes - 07/02/2010 10:00 AM CST Professor Of Physics: Taye Fuentes Status: Final - Signature Encounter: 02 Jul 2010 Type: U Ortho Letter Department of Orthopaedic Surgery Administration: [address], [address] [place] [address] or [phone] Appointments [email or web address] Mail Address: [address], [address] [place] [address] Harjinder Key MD General Orthopaedics [place] [...] Hand/Pediatric July 02, 2010 Mahesh Miranda MD [address] [place] [address] RE: Jewell Estrella : 1980 DOS: July [...] Jewell, her mom and with her [facility] about all these issues. I certainly would [...] by:Taye Fuentes M.D. Jul 03 2010 10:44AM RETAIL PHARMACY TECHNICIAN [place] PHARMACY TECHNICIAN documented in this encounter Plan of Treatment Not on filedocumented as of this encounter Visit Diagnoses Not on filedocumented in this encounter Care Teams Supervisor Parking Lot Relationship Specialty Start Date End Date Pedro Burt MD PCP - General 10/19/02 09/12/13 [address] [address] documented as of this encounter
--- OUTSIDE RECORDS SUMMARY | 2022-05-04 21:24 | XMS_ITS | Encounter Summary ---
:1980 Author Organization [place] Address [facility] [place] [address] Care Team Providers Name Role Phone Danette Shepherd MD Primary Care Provider Encounter Details Date Type Department Care Team Description 08/26/2017 Hospital Encounter [facility] Zi Padilla Retained foreign [facility] MD Ernst body in soft tissue [facility] [place] [facility] [address] [phone] Social History Tobacco [...] tissue documented in this encounter Care Teams Code Machine Operator Relationship Specialty Start Date End Date Danette Shepherd MD PCP - General Family Practice 09/13/13 12/16/21 [facility] [address] [place] [address] documented as of this encounter
--- OUTSIDE RECORDS SUMMARY | 2022-05-04 21:24 | XMS_ITS | Encounter Summary ---
:1980 Author Organization [place] Address [address] [place] [address] Care Team Providers Name Role Phone Pedro Burt MD Primary Care Provider Reason for Visit Reason Onset Date Comments Formulary Issue 03/20/2010 jason Redd Encounter Details Date Type Department Care Team Description 03/20/2010 Telephone [facility] Pedro Burt MD Formulary Issue [place] [address] Cook (jason D) [address] [place] [address] [phone] (Wo rk) Social History Tobacco Use Types [...] PM CST Encounter closed Marce Altamirano RN AGE CHEESE MAKER Telephone Encounter - Mei Pacheco - 04/14/2010 12:46 PM CST I called the MA # below, and they would not run the claim without the NDC # from the pharmacy. I called back to [facility] and the [facility]# [id number]. AGE CHEESE MAKER Telephone Encounter - Ruthy Echols - 04/10/2010 11:18 AM CST Received fax from [employer] that states Not Found, we are unable to locate this Pt's pharmacy coverage, please check with most recent insurance card Called pharmacy listed- [facility] and they gave the MA # to call. Tried at both 9:00 and 11:15 and both times the provider call center was down. Please try later. # for MA [phone] Pt's ID [id number] AGE CHEESE MAKER Telephone Encounter - Lashell Verma - 04/04/2010 12:57 PM CST Pt has Care . I will refax the PA form with this info on it. Lashell Verma CMA AGE CHEESE MAKER Telephone Encounter - Mei Pacheco - 03/27/2010 10:49 AM CDT refaxed form to insurance co. Awaiting approval/denial. Jesús Pacheco R.N. Telephone Encounter - Marce Altamirano - 03/25/2010 2:53 PM CDT Routed to [facility] Marce Altamirano RN Telephone Encounter - Eliz Squires - 03/25/2010 11:32 AM CDT Form printed off [facility] website and filled out. Faxed to [phone]. Awaiting approval or denial. Eliz Squires RN Telephone Encounter - Pedro Burt - 03/21/2010 8:10 AM CDT Try PA; has failed loratadine/zyrtec Telephone Encounter - Marce Altamirano - 03/20/2010 5:11 PM CDT Fax received from Jason DIAZ NOT covered, Dr Burt please advise PA or rx change, if PA needed call [phone], ID # [id number], routed to Dr Carmel Altamirano RN documented in this encounter Plan of Treatment Not on filedocumented as of this encounter Visit Diagnoses Diagnosis Chronic rhinitis - Primary documented in this encounter Care Teams Power Plant Installer Relationship Specialty Start Date End Date Pedro Burt MD PCP - General 10/19/02 09/12/13 [address] [id number] documented as of this encounter
--- OUTSIDE RECORDS SUMMARY | 2022-05-04 21:24 | XMS_ITS | Encounter Summary ---
:1980 Author Organization [place] Address [address] [place] [address] Care Team Providers Name Role Phone Danette Shepherd MD Primary Care Provider Reba Veliz DO Unavailable [phone] Jairon Greene MD Unavailable Encounter Details Date Type Department Care Team Description 09/15/2017 [facility] [place] [address] [place] [address] [place], [place] [phone] Social History Tobacco Use Types Packs/Day [...] Care Transfer Note - Ruthy Simon, MARISOL BASTING MARKER - 09/15/2017 2:06 PM CDT Last vitals: [...] on filedocumented in this encounter Care Teams Automation Operator Relationship Specialty Start Date End Date Danette Shepherd MD PCP - General Family Practice 09/13/13 12/16/21 [facility] [address] [place] [address] Reba Veliz Assigned OBGYN Provider 03/15/20 07/06/20 DO Silvina [address] [place] [address] [address] [place] [address] Jairon Greene, Assigned Neuroscience 03/15/20 10/26/20 Provider 420 [facility] [address] [place] [address] documented as of this encounter
--- OUTSIDE RECORDS SUMMARY | 2022-05-04 21:24 | XMS_ITS | Encounter Summary ---
:1980 Author Organization [place] Address [address] [place] [address] Care Team Providers Name Role Phone Pedro Burt MD Primary Care Provider Encounter Details Date Type Department Care Team Description 07/29/[address] [facility] Pedro Burt MD UTI (Urinary Tract Infection) (Primary D x); Clinic [address] Chronic UTI [address] [place] [address] [phone] Social History Tobacco Use Types Packs/Day Years [...] per orders for prophylaxis x 1 year. HODRAMATIST documented in this encounter Plan of Treatment Not on filedocumented as of this encounter Visit Diagnoses Diagnosis UTI (urinary tract infection) - Primary Urinary tract infection, site not specif ied Chronic UTI Urinary tract infection, site not specif ied documented in this encounter Care Teams Hook Loader Relationship Specialty Start Date End Date Pedro Burt MD PCP - General 10/19/02 09/12/13 [address] [id number] documented as of this encounter
--- OUTSIDE RECORDS SUMMARY | 2022-05-04 21:24 | XMS_ITS | Encounter Summary ---
:1980 Author Organization [place] Address [facility] [place] [address] Care Team Providers Name Role Phone Danette Shepherd MD Primary Care Provider Encounter Details Date Type Department Care Team Description 08/26/2017 Hospital Encounter M [facility] Zi Padilla Retained foreign [facility] MD Ernst body in soft tissue [facility] [address] [phone] Social History Tobacco [...] tissue documented in this encounter Care Teams It Applications Analyst Relationship Specialty Start Date End Date Danette Shepherd MD PCP - General Family Practice 09/13/13 12/16/21 [facility] [address] [place] [place] [address] documented as of this encounter
--- OUTSIDE RECORDS SUMMARY | 2022-05-04 21:24 | XMS_ITS | Encounter Summary ---
:1980 Author Organization [place] Address [address] [place] [address] Care Team Providers Name Role Phone Danette Shepherd MD Primary Care Provider Reason for Visit Reason Onset Date Comments Erroneous encounter-disregard 11/04/2017 Encounter Details Date Type Department Care Team Description 11/04/2017 Office [address] [facility] Orthopaedic Taye Fuentes [facility] MD Corby ENCOUNTER--DISREGARD [address] (Primary Dx) 4th Floor [address] [place] [address] [phone] Social History Tobacco Use Types Packs/Day Years [...] Primary documented in this encounter Care Teams Support Worker Relationship Specialty Start Date End Date Danette Shepherd MD PCP - General Family Practice 09/13/13 12/16/21 [facility] [address] [place] [address] documented as of this encounter
--- OUTSIDE RECORDS SUMMARY | 2022-05-04 21:24 | XMS_ITS | Encounter Summary ---
:1980 Author Organization [facility] Address [address] [place] [address] Care Team Providers Name Role Phone Pedro Burt MD Primary Care Provider Reason for Visit Reason Onset Date Comments Refill Request 03/18/2010 patient asking for r efill on her ensure- strawberry Encounter Details Date Type Department Care Team Description 03/18/2010 Refill [facility] Pedro Burt MD Refill Request (patient Clinic [address] asking for refill on her [phone] [place] [address] [place] ensure- strawberry ) [place] [phone] Social History Tobacco Use Types Packs/Day Years [...] Pharmacy calling- ensure is not covered through [place] unless pt is on tube feedings, or [...] route to PCP. Also- sent pt a [employer] message to inform her that she is needing to get a appt. Scheduled for an annual pe/pap, fasting labs. Jesús Pacheco RN documented in this encounter Plan of Treatment Not on filedocumented as of this encounter Visit Diagnoses Diagnosis Weight loss - Primary Loss of weight documented in this encounter Care Teams Release Of Information Clerk Relationship Specialty Start Date End Date Pedro Burt MD PCP - General 10/19/02 09/12/13 [address] [id number] documented as of this encounter
--- OUTSIDE RECORDS SUMMARY | 2022-05-04 21:24 | XMS_ITS | Encounter Summary ---
:1980 Author Organization [place] Address [address] [place] [address]. [place] [address] Care Team Providers Name Role Phone Danette Shepherd MD Primary Care Provider Reba Veliz DO Unavailable [phone] Jairon Greene MD Unavailable Encounter Details Date Type Department Care Team Description 09/15/2017 Surgery - [facility] Josue Padilla [facility] MD Ernst [place] OR OR SURGICAL [facility]5 [place], [place] [address] [facility] [address] [facility] [phone] [place], [place] [address] (Wo rk) Social History Tobacco [...] filedocumented in this encounter Care Teams Director Business Travel Relationship Specialty Start Date End Date Danette Shepherd MD PCP - General Family Practice 09/13/13 12/16/21 [facility] [address] [place] [address] Reba Veliz Assigned OBGYN Provider 03/15/20 07/06/20 DO Silvina [address] [place] [address] 400 [place] [address] Jairon Greene, Assigned Neuroscience 03/15/20 10/26/20 Provider 420 [facility] [address] [place] [address] documented as of this encounter
--- OUTSIDE RECORDS SUMMARY | 2022-05-04 21:24 | XMS_ITS | Encounter Summary ---
:1980 Author Organization [place] Address [facility] [place] [address] Care Team Providers Name Role Phone Danette Shepherd MD Primary Care Provider Reba Veliz DO Unavailable [phone] Jairon Greene MD Unavailable Encounter Details Date [...] on filedocumented in this encounter Care Teams Compressor Station Engineer Relationship Specialty Start Date End Date Danette Shepherd MD PCP - General Family Practice 09/13/13 12/16/21 [facility] [address] [place] [address] Reba Veliz Assigned OBGYN Provider 03/15/20 07/06/20 DO Silvina [address] [place] [address] [place] [address] Jairon Greene, Assigned Neuroscience 03/15/20 10/26/20 Provider 420 [facility] [address] [place], [place] [address] documented as of this encounter
--- OUTSIDE RECORDS SUMMARY | 2022-05-04 21:24 | XMS_ITS | Encounter Summary ---
:1980 Author Organization [place] Address [address] [place] [address] Care Team Providers Name Role Phone Pedro Burt MD Primary Care Provider Reason for Visit Reason Onset Date Comments Formulary Issue 03/07/2010 tazorac Encounter Details Date Type Department Care Team Description 03/07/[address] [facility] Pedro Burt MD Formulary Issue [address] (tazorac) [address] [place] [phone] (Wo rk) Social History Tobacco Use Types [...] cause documented in this encounter Care Teams Varnishing Unit Operator Relationship Specialty Start Date End Date Pedro Burt MD PCP - General 10/19/02 09/12/13 [address] [address] documented as of this encounter
--- OUTSIDE RECORDS SUMMARY | 2022-05-04 21:24 | XMS_ITS | Encounter Summary ---
:1980 Author Organization [place] Address [address] [place] [address] Care Team Providers Name Role Phone Pedro Burt MD Primary Care Provider Reason for Visit Reason Onset Date Comments MyChart Communication 03/18/2010 lisette Redd Encounter Details Date Type Department Care Team Description 03/18/2010 [facility]urt MD MyChart Communication [address] (lisette Redd, ) [address] [place] [address] Social History Tobacco Use Types [...] - 03/18/2010 11:50 AM CDT Anita Watson, Analog Circuit Designer Informed patient. Rx has been sent to [...] Added message below from pt to this [employer] message as well. Last OV: 04/05/2009 Reason [...] - 03/18/2010 8:25 AM CDT Message from [employer]: Jewell Lambert would like a refill of [...] rhinitis documented in this encounter Care Teams Emergency Department Physician Relationship Specialty Start Date End Date Pedro Burt MD PCP - General 10/19/02 09/12/13 [address] [address] documented as of this encounter
--- OUTSIDE RECORDS SUMMARY | 2022-05-04 21:24 | XMS_ITS | Encounter Summary ---
:1980 Author Organization [place] Address [address] [place] [address] Care Team Providers Name Role Phone Pedro Burt MD Primary Care Provider Reason for Visit Reason Onset Date Comments Refill Request 07/29/2009 Encounter Details Date Type Department Care Team Description 07/29/2009 MyC Refill [facility] Vickie Burt MD Refill Request [address] [phone] (W ork) [address] [phone] Social History Tobacco Use Types Packs/Day Years Used Date Smoking Tobacco: Every Day Cigarettes 5 Comments: 5-6 cigarettes daily Alcohol Use Standard Drinks/Week Comments No 0 (1 standard drink = 0.6 oz pure alcoho l) Sex Assigned at Date Recorded Not on file documented as of this encounter Miscellaneous Notes Telephone Encounter - Marce Altamirano - 07/30/2009 2:10 PM CST Sent [employer]-sent AYLIEN message Last OV: 03/26/09 Reason for visit: tobacco, anxiety Date last filled: n/a Medication approved per standing orders Marce Altamirano RN SCORING MACHINE OPERATOR Telephone Encounter - Guillermina Black - 07/29/2009 4:22 PM GUM SCORING MACHINE OPERATOR Message from [employer]: Jewell Lambert would like a refill of the following medications: CIPROFLOXACIN TABS 500 MG OR [Caitlyn Thompson,] PYRIDIUM 200 MG OR TABS [Sheri Quevedo PA-C] Other - see comments for explanation Preferred pharmacy: [facility] Comment: Dr. Burt as you can see I have had pretty persistant bladder infections AGAIN. I know I have one again. We had a [facility] clinic here in [place] which was convienent for me but it [...] a refill on that toThank Jewell Smiley SCORING MACHINE OPERATOR documented in this encounter Plan of Treatment Not on filedocumented as of this encounter Visit Diagnoses Diagnosis Urinary tract infection, site not specif ied Tobacco use disorder documented in this encounter Care Teams Radiologist Physician Relationship Specialty Start Date End Date Pedro Burt MD PCP - General 10/19/02 09/12/13 [address] [address] documented as of this encounter
--- OUTSIDE RECORDS SUMMARY | 2022-05-04 21:24 | XMS_ITS | Encounter Summary ---
:1980 Author Organization [place] Address [address] [place] [address] Care Team Providers Name Role Phone Danette Shepherd MD Primary Care Provider Encounter Details Date Type Department Care Team Description 10/29/2017 Orders Only [facility] Orthopaedic Taye Fuentes Pain in joint, pelvic Clinic MD [place] region and thigh 909 [facility] [address] (Primary Dx) 4th Floor [address] [place] [address] [phone] Social History Tobacco Use Types Packs/Day Years [...] Primary documented in this encounter Care Teams Exploitation Analyst Relationship Specialty Start Date End Date Danette Shepherd MD PCP - General Family Practice 09/13/13 12/16/21 [facility] [address] [place] [address] documented as of this encounter
--- OUTSIDE RECORDS SUMMARY | 2022-05-04 21:24 | XMS_ITS | Encounter Summary ---
:1980 Author Organization [place] Address [address] [place] [address] Care Team Providers Name Role Phone Pedro Burt MD Primary Care Provider Reason for Visit Reason Onset Date Comments Erroneous encounter-disregard 11/03/2010 Encounter Details Date Type Department Care Team Description 11/03/2010 Refill [facility] Pedro Burt MD Erroneous Clinic [place] [address] encounter-disregard [address] [place] [address] [phone] Social History Tobacco Use Types Packs/Day Years [...] refill encounter. Thank you, Yodit Mak RN [facility] Telephone Encounter - Rachel Tavera - 11/03/2010 [...] rhinitis documented in this encounter Care Teams Plate Preparer Relationship Specialty Start Date End Date Pedro Burt MD PCP - General 10/19/02 09/12/13 [address] [address] documented as of this encounter
--- OUTSIDE RECORDS SUMMARY | 2022-05-04 21:24 | XMS_ITS | Encounter Summary ---
:1980 Author Organization [place] Address [address] [place] [address] Care Team Providers Name Role Phone Pedro Burt MD Primary Care Provider Reason for Visit [facility] Physical Therapy (Routine) - Closed Specialty Diagnoses / Procedures Referred By Contact Refer red To Contact Diagnoses WC/ Mid back/ Dr. Taye Fuentes @ / cl# [id number] doi: 01-16-07 adj: Sarah Neville @ [phone] [id number] - Left message with Sarah @ [phone] [id number] requesting 6 visits for Mid back starting 07-02-10 cl Taye Fuentes MD [facility] Sports # [id number] doi: 01-16-07 [address] & Physical Therapy - [place] [address] [place] [address] [place] [address] [place] [address] Phone: Fax: Referral ID Status Reason Start Date Expiration Date Visits V isits Requested Authorized JOHANA/WC/MIDBACK Closed 07/02/2010 09/29/2010 4 Encounter Details Date Type Department Care Team Description 07/04/2010 Therapy Visit [facility] Sonu Ayala athic lesion Rehabilitation Services B, PT of sacral region, not [facility] [facility] elsewhere classified [address] SPECIALISTS (Primary Dx) [address] [facility] [address] [place], [place] [address] Social History Tobacco Use Types Packs/Day Years [...] Nonallopathic lesio n of TECH,1+REGIONS,EA 15 MIN [employer]PUT[employer] [place] COUNSEL sacral region, n ot elsewhere classified [facility] NEUROMUSCULAR Routine 07/07/2010 6:34 AM Nonallopathic les ion of RE-EDUCATION [employer] [place] COUNSEL sacral region, not elsewhere classified [facility] THERAPEUTIC Routine 07/07/2010 6:34 AM Nonallopathic lesio n of EXERCISES [employer] [place] COUNSEL sacral region, not elsewhere classified documented in this encounter Visit Diagnoses Diagnosis Nonallopathic lesion of sacral region, n ot elsewhere classified - Primary documented in this encounter Care Teams Automatic Glove Turner And Former Relationship Specialty Start Date End Date Pedro Burt MD PCP - General 10/19/02 09/12/13 [address] [address] documented as of this encounter
--- OUTSIDE RECORDS SUMMARY | 2022-05-04 21:24 | XMS_ITS | Encounter Summary ---
:1980 Author Organization [place] Address [address] [place] [address] Care Team Providers Name Role Phone Pedro Burt MD Primary Care Provider Reason for Visit Reason Comments Depression & smoking cessasion Encounter Details Date Type Department Care Team Description 04/05/2009 Office Visit [facility] Pedro Burt MD Tobacco Use Disorder; Clinic [address] Adjustment Disorder with Anx iety; [address] [place] [address] GENERALIZED ANXIETY DIS; [facility] [address] [phone] Social History Tobacco Use Types Packs/Day Years [...] Comments Blood Pressure 116/74 04/05/2009 1:35 PM RN [facility] Pulse 102 04/05/2009 1:35 PM RN [facility] Temperature - - Respiratory Rate - - Oxygen Saturation - - Inhaled Oxygen Concentration - - Weight 44.5 kg (98 lb) 04/05/2009 1:35 PM RN [facility] Height 167.6 cm (5' 6) 04/05/2009 1:35 PM RN [facility] Body Mass Index 15.82 04/05/2009 1:35 PM RN [facility] documented in this encounter Progress Notes Lashell Verma - 04/05/2009 2:56 PM RN [facility] Addended by: LASHELL VERMA on: 04/05/2009 2:56:04 PM Modules accepted: SmartSet [facility] Pedro Burt - 04/05/2009 2:10 PM CST [...] use OTC bBoost supplement TID with meals. [facility] documented in this encounter Nursing Notes 04/05/2009 [...] Underweight documented in this encounter Care Teams Access Services Librarian Relationship Specialty Start Date End Date Pedro Burt MD PCP - General 10/19/02 09/12/13 [address] [address] documented as of this encounter
--- OUTSIDE RECORDS SUMMARY | 2022-05-04 21:24 | XMS_ITS | Encounter Summary ---
:1980 Author Organization [place] Address [address] [place] [address] Care Team Providers Name Role Phone Pedro Burt MD Primary Care Provider Encounter Details Date Type Department Care Team Description 04/10/2010 Orders Only [facility] Pedro Burt MD DIAGNOSIS NOT YET Clinic [place] [address] [place] [address] DEFINED (Primary Dx) [address] [place], [place] [address] [phone] Social History Tobacco Use Types Packs/Day Years [...] Primary documented in this encounter Care Teams Nitroglycerin Nitrator Operator Batch Relationship Specialty Start Date End Date Pedro Burt MD PCP - General 10/19/02 09/12/13 [address] [place] [address] documented as of this encounter
--- OUTSIDE RECORDS SUMMARY | 2022-05-04 21:24 | XMS_ITS | Encounter Summary ---
:1980 Author Organization [place] Address [address] [place] [address] Care Team Providers Name Role Phone Pedro Burt MD Primary Care Provider Encounter Details Date Type Department Care Team Description 07/07/2010 Office Visit-[facility] INTERFACE [facility] DEPT Guillermina Sawyer RN Social History Tobacco Use Types Packs/Day Years Used Date Smoking Tobacco: Every Day Cigarettes 5 Comments: 5-6 cigarettes daily Alcohol Use Standard Drinks/Week Comments No 0 (1 standard drink = 0.6 oz pure alcoho l) Sex Assigned at Date Recorded Not on file documented as of this encounter Progress Notes Guillermina Sawyer - 07/07/2010 4:[address] Reporter: Guillermina Sawyer Status: Final - Signature Encounter: 07 Jul 2010 Type: Chart Note Date: 07 Jul 2010 4:12 PM HYDRAMATIC MECHANIC, Recorded By: Guillermina Sawyer Caller: Arthur Ayala, [...] by:Guillermina Sawyer RN Jul 07 2010 4:22PM HYDRAMATIC MECHANIC Electronically signed by:Taye Fuentes M.D. Jul 17 2010 9:33AM HYDRAMATIC MECHANIC AMATIC MECHANIC documented in this encounter Plan of Treatment Not on filedocumented as of this encounter Visit Diagnoses Not on filedocumented in this encounter Care Teams Iron Erector Relationship Specialty Start Date End Date Pedro Burt MD PCP - General 10/19/02 09/12/13 [address] [address] documented as of this encounter
--- OUTSIDE RECORDS SUMMARY | 2022-05-04 21:24 | XMS_ITS | Encounter Summary ---
:1980 Author Organization [facility] Address [address] [place] [address]. [place] [address] Care Team Providers Name Role Phone Danette Shepherd MD Primary Care Provider Encounter Details Date Type Department Care Team Description 12/19/2014 Medical Correspondence [facility] Deng [facility] REFERRAL [facility] Info [facility] Non-Provider [facility] Sr[facility] [address] [place] [address] Social History Tobacco Use Types Packs/Day [...] on filedocumented in this encounter Care Teams Decorator Hand Relationship Specialty Start Date End Date Danette Shepherd MD PCP - General Family Practice 09/13/13 12/16/21 [facility] [address] [place] [address] documented as of this encounter
--- OUTSIDE RECORDS SUMMARY | 2022-05-04 21:24 | XMS_ITS | Encounter Summary ---
:1980 Author Organization [place] Address [address] [place] [address] Care Team Providers Name Role Phone Pedro Burt MD Primary Care Provider Reason for Visit Reason Onset Date Comments Refill Request 03/05/2009 vicodin Encounter Details Date Type Department Care Team Description 03/05/2009 Refill [facility] Pedro Burt MD Refill Request (vicodin) Clinic [address] [place] [address] [phone] Social History Tobacco Use Types Packs/Day Years [...] unspecified documented in this encounter Care Teams Fiberline Supervisor Relationship Specialty Start Date End Date Pedro Burt MD PCP - General 10/19/02 09/12/13 7907 [facility] [place] [address] documented as of this encounter
--- OUTSIDE RECORDS SUMMARY | 2022-05-04 21:24 | XMS_ITS | Encounter Summary ---
:1980 Author Organization [place] Address [address] [place] [address] Care Team Providers Name Role Phone Danette Shepherd MD Primary Care Provider Reason for Visit Reason Comments Consult Low back, bilateral leg pain . Hx of lumbar fusion at [facility] with Dr. Komal MAGAÑA 03/01/2009. Saw Dr. Fuentes 07/02/2010. Encounter Details Date Type Department Care Team Description 09/13/2013 Office Visit [facility] Taye Fuentes Sacroiliitis (H) [facility] MD [place] (Primary Dx) [facility] [address] [place] [address], [address] [place] [address] [phone] Social History Tobacco Use Types Packs/Day Years [...] leg pain. Hx of lumbar fusion at [facility] with Dr. Komal MAGAÑA 03/01/2009. Saw Dr. [...] classified documented in this encounter Care Teams Nub Card Tender Relationship Specialty Start Date End Date Danette Shepherd MD PCP - General Family Practice 09/13/13 12/16/21 [place] [id number] [place] [address] documented as of this encounter
--- OUTSIDE RECORDS SUMMARY | 2022-05-04 21:24 | XMS_ITS | Encounter Summary ---
:1980 Author Organization [place] Address [address] [place] [address] Care Team Providers Name Role Phone Pedro Burt MD Primary Care Provider Reason for Visit Reason Comments UTI Encounter Details Date Type Department Care Team Description 06/07/2009 Office Visit [facility] Lucinda Thompson y Tract Infection, Site not Specified; Venecia Millan PA-C Dysuria [address] [place] [address] [address] [place], [place] [address] Social History Tobacco Use [...] 36.8 ??C (98.3 ??F) 06/07/2009 3:27 PM BACTERIOLOGIST FISHERY Respiratory Rate - - Oxygen Saturation - - Inhaled Oxygen Concentration - - Weight - - Height - - Body Mass Index - - documented in this encounter Patient Instructions Patient InstructionsLoCaitlyn pablo PA-C - 06/07/2009 3:19 PM BACTERIOLOGIST FISHERY Urinary Tract Infection in Women What is [...] and pantyhose every day. Copyright ?? 2006 [employer] and/or one of its subsidiaries. All Rights Reserved. ERIOLOGIST FISHERY documented in this encounter Progress Notes Caitlyn [...] these issues and agrees with the plan. ERIOLOGIST FISHERY documented in this encounter Plan of Treatment Not on filedocumented as of this encounter Procedures Procedure Name Priority Date/Time Associated Diagnosis Comme nts ZZCL U/A, W/O MICRO, Routine 06/07/2009 Urinary Tract Result s for this NON AUTO Infection, Site not procedur e are in the Specified results section. Dysuria documented in this encounter Results (ABNORMAL) Urine Test [55678.003] (06/07/2009) [facility] gist Method Time Signature Source [facility] Color Urine Yellow [facility] Appearance Urine cloudy (A) [facility] Glucose negative Neg mg/dL [facility] Bilirubin Urine negative Neg [facility] Ketones negative neg - neg [facility] mg/dL Specific [place] 1.020 1.003 - [facility] Urine 1.035 [...] Organization Address City/State/ZIP Code Phon e Number [facility] [address] [place] [address] [facility] documented in this encounter Visit Diagnoses Diagnosis Urinary tract infection, site not specif ied Dysuria documented in this encounter Care Teams Elevator Operator Freight Relationship Specialty Start Date End Date Pedro Burt MD PCP - General 10/19/02 09/12/13 [address] [place] [address] documented as of this encounter
--- OUTSIDE RECORDS SUMMARY | 2022-05-04 21:24 | XMS_ITS | Encounter Summary ---
:1980 Author Organization [place] Address [address] [place] [address] Care Team Providers Name Role Phone Pedro Burt MD Primary Care Provider Reason for Visit Reason Onset Date Comments Refill Request 03/06/2010 multiple Encounter Details Date Type Department Care Team Description 03/06/2010 MyC Refill [facility] Pedro Burt MD Refill Request Clinic [place] [address] (multiple) [address] [place] [address] (Wo rk) Social History [...] 03/06/2010 6:35 PM CDT Last office visit: [id number] Reason for visit: E-visit for UTI MARIANA: [id number] Medication APPROVED per standing orders. Zonia Black RN Telephone Encounter - Guillermina Black - 03/06/2010 6:33 PM CDT Message from [employer]: Jewell Lambert would like a refill of the following medications: TAZORAC 0.1 % EX CREA [Pedro Burt MD] FLONASE INHA 50 MCG/DOSE NA [Pedro Burt MD] CHANTIX STARTING MONTH NIRMALA 0.5 MG X 11 & 1 MG X 42 OR TABS [Pedro Burt MD] CHANTIX CONTINUING MONTH NIRMALA 1 MG OR TABS [Pedro Burt MD] Preferred pharmacy: [facility] Comment: Dr. Burt I finally have [...] disorder documented in this encounter Care Teams District Court Administrator Relationship Specialty Start Date End Date Pedro Burt MD PCP - General 10/19/02 09/12/13 [address] [place] [address] documented as of this encounter
--- OUTSIDE RECORDS SUMMARY | 2022-05-04 21:24 | XMS_ITS | Encounter Summary ---
:1980 Author Organization [facility] Address [address] [place] [address] Care Team Providers Name Role Phone Pedro Burt MD Primary Care Provider Encounter Details Date Type Department Care Team Description 07/02/2010 Office Visit-[facility] INTERFACE [facility] DEPT Provider, [facility] Nurs e Social History Tobacco Use Types Packs/Day Years Used Date Smoking Tobacco: Every Day Cigarettes 5 Comments: 5-6 cigarettes daily Alcohol Use Standard Drinks/Week Comments No 0 (1 standard drink = 0.6 oz pure alcoho l) Sex Assigned at Date Recorded Not on file documented as of this encounter Progress Notes Provider, [facility] Nurse - 07/02/2010 10:00 AM CST Crabber: Naye [facility] Status: Final Encounter: 02 Jul 2010 Type: Rooming Note Reason For Visit Low back and susu SI, buttocks and leg pain. Pt. is with her mother Nelly Pino, and her [facility] Tone. Do you have any other appointments, tests or procedures within the [facility] system for this same day? 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 Sauceda, [facility] [address] Primary Provider: Rosette Garrett Referring Physician: Dr. [...] By: Naye [facility] LP; 07/02/2010 10:20 AM TEAM LEADER SURGERY. documented in this encounter Plan of Treatment Not on filedocumented as of this encounter Visit Diagnoses Not on filedocumented in this encounter Care Teams Filing Machine Operator Relationship Specialty Start Date End Date Pedro Burt MD PCP - General 10/19/02 09/12/13 [address] [place] [address] documented as of this encounter
--- OUTSIDE RECORDS SUMMARY | 2022-05-04 21:24 | XMS_ITS | Encounter Summary ---
:1980 Author Organization [place] Address [address] [place] [address] Care Team Providers Name Role Phone Pedro Burt MD Primary Care Provider Reason for Visit Reason Onset Date Comments Erroneous encounter-disregard 03/18/2010 this is a duplicate message. Encounter Details Date Type Department Care Team Description 03/18/2010 [facility] Pedro Burt MD Erroneous Clinic [place] [address] [place] [address] encounter-disregard [address] [facility] (this is a d... [place], [place] [id number] (Wo rk) Social History Tobacco Use Types [...] cause documented in this encounter Care Teams Physician/Ophthalmologist Relationship Specialty Start Date End Date Pedro Burt MD PCP - General 10/19/02 09/12/13 7971 [facility] [place] [address] documented as of this encounter
--- OUTSIDE RECORDS SUMMARY | 2022-05-04 21:24 | XMS_ITS | Encounter Summary ---
:1980 Author Organization [place] Address [address] [place] [address] Care Team Providers Name Role Phone Pedro Burt MD Primary Care Provider Reason for Visit Reason Onset Date Comments Refill Request 08/05/2010 chantix 1 mg & nitro furantoin Encounter Details Date Type Department Care Team Description 08/05/2010 Refill [facility] Pedro Burt MD Refill Request (chantix [facility] [place] [address] 1 mg & nitrofurantoin) [address] [place] [address] [phone] Social History Tobacco Use Types Packs/Day Years [...] ied documented in this encounter Care Teams Armorer Technician Relationship Specialty Start Date End Date Pedro Burt MD PCP - General 10/19/02 09/12/13 [address] [place] [address] documented as of this encounter
--- OUTSIDE RECORDS SUMMARY | 2022-05-04 21:24 | XMS_ITS | Encounter Summary ---
:1980 Author Organization [place] [facility] Address [address] [place] [address] Care Team Providers Name Role Phone Pedro Burt MD Primary Care Provider Reason for Visit Reason Comments UTI Encounter Details Date Type Department Care Team Description 05/12/2009 Office Visit [facility] Sheri Quevedo PA-C Urinary Tract Venecia [facility] Infection, Site not [address] [place] [address] CTR Specified ([place] [address] Dx) [address] [place], [place] [address] (Wo rk) Social History [...] Comments Blood Pressure 90/64 05/12/2009 6:57 PM COMMUNITY SERVICE MANAGER Pulse 100 05/12/2009 6:57 PM COMMUNITY SERVICE MANAGER Temperature 37.1 ??C (98.8 ??F) 05/12/2009 6:57 PM COMMUNITY SERVICE MANAGER Respiratory Rate 18 05/12/2009 6:57 PM COMMUNITY SERVICE MANAGER Oxygen Saturation 96% 05/12/2009 6:57 PM COMMUNITY SERVICE MANAGER Inhaled Oxygen Concentration - - Weight - - Height - - Body Mass Index - - documented in this encounter Progress Notes Sheri Quevedo - 05/12/2009 9:52 PM COMMUNITY SERVICE MANAGER Quick Note: Discussed with patient. UNITY SERVICE MANAGER Sheri Quevedo - 05/12/2009 9:48 AM [...] or sooner if worsen. Sheri Quevedo PA-C UNITY SERVICE MANAGER documented in this encounter Plan of Treatment Not on filedocumented as of this encounter Procedures Procedure Name Priority Date/Time Associated Diagnosis Comme joe ZZCL U/A, W/O Routine 05/12/2009 7:04 PM Urinary Tract Results for this MICRO, NON AUTO COMMUNITY SERVICE MANAGER Infection, Site not proce dure are in Specified the results section. documented in this encounter Results (ABNORMAL) Urine Test [43530.003] (05/12/2009 7:04 PM COMMUNITY SERVICE MANAGER) [facility] Method Time Signature Source urine [facility] Color Urine brown [facility] Appearance Urine cloudy [facility] Glucose negative Neg mg/dL [facility] Bilirubin Urine negative Neg [facility] Ketones negative neg - neg [facility] mg/dL Specific [place] 1.030 1.003 - [facility] Urine 1.035 [...] Organization Address City/State/ZIP Code Phon e Number [facility] [address] [place] [address] [facility] documented in this encounter Visit Diagnoses Diagnosis Urinary tract infection, site not specif ied - Primary documented in this encounter Care Teams Case Briefer Relationship Specialty Start Date End Date Pedro Burt MD PCP - General 10/19/02 09/12/13 7907 [place] [id number] documented as of this encounter
--- OUTSIDE RECORDS SUMMARY | 2022-05-04 21:24 | XMS_ITS | Encounter Summary ---
:1980 Author Organization [facility] Address [address] [place] [address] Care Team Providers Name Role Phone Pedro Burt MD Primary Care Provider Reason for Visit Reason Onset Date Comments Formulary Issue 04/01/2010 3 pages faxed from [facility] uniform form for pres. drug prior auth. req and formul darryl exceptions Encounter Details Date Type Department Care Team Description 04/01/2010 Telephone [facility] Pedro Burt MD Formulary Issue ([address] [place] [address] [address] pages faxed from [address] uniform form for pres. [place] [id number] and formulary [phone] (Wo rk) exceptions) Social History Tobacco Use [...] I will fax form back with pt's [facility] ID # [id number] and close theencounter as it is redundant. Lashell Verma CMA IT REFERENCE CLERK Telephone Encounter - Silvana Farrell - 04/01/2010 10:09 AM CST 3 pages faxed from [place] uniform form for pres. drug prior auth. req and formulary exceptions. [facility] Dept. [phone] fax number. Silvana Farrell IT REFERENCE CLERK documented in this encounter Plan of Treatment Not on filedocumented as of this encounter Visit Diagnoses Not on filedocumented in this encounter Care Teams Paralegal Internship Relationship Specialty Start Date End Date Pedro Burt MD PCP - General 10/19/02 09/12/13 [address] [place] [address] documented as of this encounter
--- OUTSIDE RECORDS SUMMARY | 2022-05-04 21:24 | XMS_ITS | Encounter Summary ---
:1980 Author Organization [place] [facility] Address [address] [place] [address] Care Team Providers Name Role Phone Danette Shepherd MD Primary Care Provider Encounter Details Date Type Department Care Team Description 04/17/2017 Virtual Visit [facility] Zbigniew up Mitra Hobson, [address] [place] [address] [place] [address] [place] [address] [phone] Social History Tobacco Use Types Packs/Day Years [...] jewell parson Patient : 1980 Patient Address: [address] [place] [address] Patient Visit Protocol: STI Patient Summary: jewell [...] care providers. For more information, see [email or web address] Diagnosis: Chlamydia exposure Diagnosis ICD: Z20.2 Additional [...] as needed: no, Allow substitutions: yes Pharmacy: [phone] - - [address] [place] [address] Addendum created: April 17 18:40:2016 created by: Jacqueline Magana body: Ok for 1000 mg azithromycin for one dose - take two 500 mg tabs once Dispense 2 tabs No refill [employer] documented in this encounter Plan of Treatment Not on filedocumented as of this encounter Visit Diagnoses Not on filedocumented in this encounter Care Teams Affiliate Marketing Manager Relationship Specialty Start Date End Date Danette Shepherd MD PCP - General Family Practice 09/13/13 12/16/21 [facility] [address] [place] [address] documented as of this encounter
--- OUTSIDE RECORDS SUMMARY | 2022-05-04 21:24 | XMS_ITS | Encounter Summary ---
:1980 Author Organization [place] Address [address] [place] [address] Care Team Providers Name Role Phone Pedro Burt MD Primary Care Provider Reason for Visit [facility] Physical Therapy (Routine) - Closed Specialty Diagnoses / Procedures Referred By Contact Refer red To Contact Diagnoses WC/ Mid back/ Dr. Taye Fuentes @ / cl# [id number] doi: 01-16-07 adj: Sarah Neville @ [phone] [id number] - Left message with Sarah @ [phone] [id number] requesting 6 visits for Mid back starting 07-02-10 cl Taye Fuentes MD [facility] [employer] [employer] # [id number] doi: 01-16-07 [address] & Physical Therapy - [place] [address] [place] [address] [place] [address] [place] [address] Phone: Fax: Referral ID Status Reason Start Date Expiration Date Visits V isits Requested Authorized JOH[facility]/WC/MIDBACK Closed 07/02/2010 09/29/2010 4 Encounter Details Date Type Department Care Team Description 07/02/2010 Therapy Visit [facility] Sonu Ayala Nonallop athic lesion of sacral region, not elsewhere classified; Rehabilitation Services B, PT Pain in joint, pelvic region and thigh; [facility] Pain in thoracic spine [address] [facility] [address] 8640 [facility] [address] [place] [id number] [phone] Social History Tobacco Use Types Packs/Day Years [...] and time spent performing 1:1 timed codes. UNCTURIST Sonu Ayala - 07/02/2010 3:41 PM CST [...] Sheet for this information) Short term and long-term goals: (See Goal Flow Sheet for this [...] for treatment today and total treatment time. UNCTURIST documented in this encounter Plan of Treatment Not on filedocumented as of this encounter Procedures Procedure Name Priority Date/Time Associated Diagnosis Comme nts [facility] MANUAL THER Routine 07/04/2010 11:23 AM Nonallopathic lesi on of TECH,1+REGIONS,EA 15 MIN ACUPUNCTURIST sacral region, n ot elsewhere classi fied Pain in joint, pelvic region and thigh Pain in thoracic spine [facility] NEUROMUSCULAR Routine 07/04/2010 11:23 AM Nonallopathic le sharee of RE-EDUCATION ACUPUNCTURIST sacral region, not elsewhere classi fied Pain in joint, pelvic region and thigh Pain in thoracic spine [facility] THERAPEUTIC Routine 07/04/2010 11:23 AM Nonallopathic lesi on of EXERCISES ACUPUNCTURIST sacral region, not elsewhere classi fied Pain in joint, pelvic region and thigh Pain in thoracic spine documented in this encounter Visit Diagnoses Diagnosis Nonallopathic lesion of sacral region, n ot elsewhere classified Pain in joint, pelvic region and thigh Pain in thoracic spine documented in this encounter Care Teams Adult Daycare Coordinator Relationship Specialty Start Date End Date Pedro Burt MD PCP - General 10/19/02 09/12/13 [address] [place] [address] documented as of this encounter
--- OUTSIDE RECORDS SUMMARY | 2022-05-04 21:24 | XMS_ITS | Encounter Summary ---
:1980 Author Organization [place] Address [address] [place] [address]. [place] [address] Care Team Providers Name Role Phone Danette Shepherd MD Primary Care Provider Encounter Details Date Type Department Care Team Description 09/15/2017 Hospital Encounter [facility] Randy, [facility] MD Ernst OR [facility] [address] [place] [address] 280 [address] [facility] [phone] [address] [place], [place] [address] (Wo rk) Social History Tobacco Use Types [...] of this encounter Progress Notes Naye Hope, [facility] - 09/15/2017 12:02 PM CDT Pharmacy Note - Admission Medication History Pertinent Provider Information: Prior To Admission (INTERNAL COMMUNICATIONS MANAGER) med list completed and updated in EMR. INTERNAL COMMUNICATIONS MANAGER Med List Medication Sig Last Dose ??? [...] Patient was asked about OTC/herbal products specifically. INTERNAL COMMUNICATIONS MANAGER med list reflects this. Based on the pharmacist???s assessment, the INTERNAL COMMUNICATIONS MANAGER med list information appears reliable Allergies were [...] her body. We are working with a enamel applier. See comment in Rosette tolberton page two. Care Provided: Supportive conversation, prayers for continued strength and clarity, for patient, family, and her dtr. Plan of Care: Consulted with Lead Pyrometer Operator to leave this note. Spiritual Care is available Pyrometer Operator Chikis Connelly documented in this encounter H&P [...] of ankle [M79.5] Surgeon(s): Zi Padilla MD Finisher Tailor Apprentice: Paul Segura RN Scrub Person: Tatiana Laguerre [...] applicable). Zi Padilla MD IMG DIAGNOSTIC IMAGING [facility] Surgical Pathology Exam (09/15/2017 1:46 PM CDT) [facility] Method Time Signature Case Report Surgical Pathology ?Case: [id number] ? 09/17/2017 [facility] Authorizing Provider: ??Tl Padilla MD ?Collected: ? 09/15/2017 1346 ? 4:52 PM CDT [employer] Ordering Location: ? [facility] OR Received: ?09/15/2017 1414 ? TASHIAND S [...] PM [facility] Clinical Pre-op Diagnosis: 09/17/2017 [facility] Information Retained foreign 4:52 PM CDT [...] or a small piece of decorative tile. JPL:[facility] Charges CPT: [id number] 09/17/2017 [facility] ICD-10: M79.5 4:52 PM CDT [facility] Result Flag Normal 09/17/2017 [facility] 4:52 PM CDT [facility] Comment: SPECIMEN PROCESSING: All histology slide preparation and stai ns; and cytology slide preparation, staining, and spa therapist screening done at [facility] are performed at [facility], [address] [place] [address], [address], with final interpretatio n, frozen section analysis, [...] Organization Address City/State/ZIP Code Phon e Number [place] [address] Lab [facility] [place] Millan [address] [place] [address] LABORATORY HCG qualitative urine (09/15/2017 10:45 AM CDT) [facility] Method Time Signature hCG Urine Negative Negative 09/15/2017 [facility] Qualitative 10:53 AM CDT [facility] Specific 1.024 1.001 - 09/15/2017 [facility] [place] Urine 1.030 10:53 AM CDT [facility] Specimen Anatomical Collection Method Collection Time Receive d Time (Source) Location / / Volume Laterality Urine specimen Non-blood 09/15/2017 10:45 8 (specimen) Collection / AM CDT 10:48 AM CDT Unknown Narrative [facility] - 09/15/2017 10:53 AM CDT This test is for screening purposes. Res ults should be interpreted along with the clinical picture. Confirmation testing i s available if warranted by ordering Test 143, Beta HCG, Quantitative. Floyd Gomez MD LAB - URINE ORDERABLES Performing Organization Address City/State/ZIP Code Ph[place] [address] [facility] [address] [place] [address] [address] [address] [facility] [address] [place], [place] [address] [address] documented in this encounter Visit Diagnoses Not on filedocumented in this encounter Care Teams Top Closer Relationship Specialty Start Date End Date Danette Shepherd MD PCP - General Family Practice 09/13/13 12/16/21 [facility] [address] [place] [address] documented as of this encounter
--- OUTSIDE RECORDS SUMMARY | 2022-05-04 21:24 | XMS_ITS | Encounter Summary ---
:1980 Author Organization [facility] Address [address] [place] [address] Care Team Providers Name Role Phone Pedro Burt MD Primary Care Provider Reason for Visit Reason Onset Date Comments Refill Request 06/11/2010 benzoyl peroxide, fl onase Encounter Details Date Type Department Care Team Description 06/11/2010 Refill [facility] Pedro Burt MD Refill Request (benzoyl [facility] [place] [address] peroxide, flonase) [address] [place] [address] [facility] [place] [address] [address] [phone] Social History Tobacco Use Types Packs/Day Years [...] standing orders LETTER SENT Zonia Black RN STRIAL HYGIENE MANAGER documented in this encounter Plan of Treatment Not on filedocumented as of this encounter Visit Diagnoses Diagnosis Dermatitis Contact dermatitis and other eczema, due to unspecified cause Chronic rhinitis documented in this encounter Care Teams Salad Counter Attendant Relationship Specialty Start Date End Date Pedro Burt MD PCP - General 10/19/02 09/12/13 7961 [place] [address] documented as of this encounter
--- OUTSIDE RECORDS SUMMARY | 2022-05-04 21:24 | XMS_ITS | Encounter Summary ---
:1980 Author Organization [place] Address [address] [place] [address] Care Team Providers Name Role Phone Pedro Burt MD Primary Care Provider Reason for Visit Reason Onset Date Comments MyChart Communication 03/06/2009 vicodin Encounter Details Date Type Department Care Team Description [facility] MyChart Communication [place] [address] Cook (vicodin) [address] [place] [phone] Social History Tobacco Use Types Packs/Day Years [...] - 03/06/2009 4:56 PM CDT Message from [employer]: Jewell Lambert would like a refill of the following medications: VICODIN ES 7.5-750 MG OR TABS [Pedro Burt MD] Preferred pharmacy: [facility] Comment: documented in this encounter Plan of Treatment Not on filedocumented as of this encounter Visit Diagnoses Diagnosis Thoracic or lumbosacral neuritis or radi culitis, unspecified documented in this encounter Care Teams Machine Plug Shaper Relationship Specialty Start Date End Date Pedro Burt MD PCP - General 10/19/02 09/12/13 [address] [address] documented as of this encounter
--- OUTSIDE RECORDS SUMMARY | 2022-05-04 21:24 | XMS_ITS | Encounter Summary ---
:1980 Author Organization [place] Address [address] [place] [address] Care Team Providers Name Role Phone Pedro Burt MD Primary Care Provider Reason for Visit Reason Onset Date Comments Refill Request 11/03/2010 tazorac 0.1% cream 6 0gm Refill Request 11/03/2010 fluticasone nasal (1 20INH) 16 GM and fluticasone Refill Request 11/03/2010 Audra Encounter Details Date Type Department Care Team Description 11/03/2010 Refill [facility] Pedro Burt MD Refill Request (tazorac [facility] [place] [address] 0.1% cream 60gm); Refill [address] [facility] Request ([place] [address] nasal (120INH) 16 GM and [address] fluticasone); Refill [phone] Request ( Audra) Social History Tobacco Use [...] Pharmacy notified. Thank you, Yodit Mak RN [facility] Telephone Encounter - Pedro Burt MD - [...] as well. Thank you, Yodit Mak RN [facility] Telephone Encounter - Gail Wahl - 11/03/2010 [...] rhinitis documented in this encounter Care Teams Workers Compensation Analyst Relationship Specialty Start Date End Date Pedro Burt MD PCP - General 10/19/02 09/12/13 [address] [address] documented as of this encounter
--- OUTSIDE RECORDS SUMMARY | 2022-05-04 21:25 | XMS_ITS | Encounter Summary ---
:1980 Author Organization [place] Address [address] [place] [address] Care Team Providers Name Role Phone Pedro Burt MD Primary Care Provider Reason for Visit Reason Onset Date Comments Refill Request 11/01/2008 Vicodin Encounter Details Date Type Department Care Team Description 11/01/2008 Refill [facility] Pedro Burt MD Refill Request (Vicodin) Clinic [address] [address] [phone] Social History Tobacco Use Types Packs/Day Years [...] anxiety Date last filled: 10/17/08 Pt sent [employer] message, was refused, [place] please advise, if refused NEED TO CHANGE AMOUNT TO 0 AND WRITE DENIED IN SIG SO PHARMACY GETS NOTIFIED Comment: Hey Dr. Burt its Jewell!! Hope you are doing good!! Hey I have a question im going [place] this weekend to visit my family in [place] and I have about 15 vicodin left and do not want to run out up there is there, wondering if you could refill my perscription I know its alex early but I do not want to be in pain and be all the way up there. Let me know k or call [phone] Jewell Navarrete RN documented in this encounter Plan of Treatment Not on filedocumented as of this encounter Visit Diagnoses Diagnosis Thoracic or lumbosacral neuritis or radi culitis, unspecified documented in this encounter Care Teams Substation Mechanic Relationship Specialty Start Date End Date Pedro Burt MD PCP - General 10/19/02 09/12/13 [address] [address] documented as of this encounter
--- OUTSIDE RECORDS SUMMARY | 2022-05-04 21:25 | XMS_ITS | Encounter Summary ---
:1980 Author Organization [place] Address [address] [place] [address] Care Team Providers Name Role Phone Pedro Burt MD Primary Care Provider Reason for Visit Reason Onset Date Comments MyChart Communication 01/08/2009 asking for refills on flonase and jason - d Encounter Details Date Type Department Care Team Description 01/07/2009 MyC Refill [facility] Pedro Burt MD MyChart Communication [address]ills ... [address] [place] [address] [phone] Social History Tobacco Use Types Packs/Day Years [...] - 01/08/2009 10:06 AM CDT Message from [employer] Jewell Ascencion Lambert would like a refill [...] Primary documented in this encounter Care Teams Database Coordinator Relationship Specialty Start Date End Date Pedro Burt MD PCP - General 10/19/02 09/12/13 [address] [address] documented as of this encounter
--- OUTSIDE RECORDS SUMMARY | 2022-05-04 21:25 | XMS_ITS | Encounter Summary ---
:1980 Author Organization [place] Address [address] [place] [address] Care Team Providers Name Role Phone Pedro Burt MD Primary Care Provider Reason for Visit Reason Comments UTI Encounter Details Date Type Department Care Team Description 01/21/2009 Office Visit [facility] Sheri Quevedo PA-C Dysuria (Primary Dx) [facility] MEDICAL [address] [place] [address] [place], [place] [address] (Wo rk) Social History [...] the penis when you bathe. Developed by [employer] Published by [employer]. Last modified: 2006-08-23 Last reviewed: 2006-09-21 This content is reviewed periodically and is subject to change as new health information becomes available. The information is intended to inform and educate and is not a replacement for medical evaluation, advice, diagnosis or treatment by a healthcare professional. Adult Health Advisor 2007.1 Index Adult Health Advisor 2007.1 Credits ?? 2008 [facility] and/or one of its affiliates. All [...] Primary documented in this encounter Care Teams Steward/Steward[employer] Dining Car Relationship Specialty Start Date End Date Pedro Burt MD PCP - General 10/19/02 09/12/13 [address] [address] documented as of this encounter
--- OUTSIDE RECORDS SUMMARY | 2022-05-04 21:25 | XMS_ITS | Encounter Summary ---
:1980 Author Organization [place] Address [address] [place] [address] Care Team Providers Name Role Phone Pedro Burt MD Primary Care Provider Reason for Visit Reason Onset Date Comments Refill Request 01/07/2009 Vicodin Encounter Details Date Type Department Care Team Description 01/06/[address] [facility] Pedro Burt MD Refill Request Clinic [place] [address] Cook (Vicodin) [address] [place] [phone] (Wo rk) Social History Tobacco Use Types [...] 01/07/2009 8:24 AM CDT CL- Please see MySQUAR message below Last OV: 06/25/08 Reason for visit: back pain Date last filled: 12/17/08 #40 Unable to fill PSO Eliz Squires RN Telephone Encounter - Eliz Squires - 01/07/2009 8:07 AM CDT Message from [employer]: Jewell Ascencion Lambert would like a [...] unspecified documented in this encounter Care Teams Laboratory Clerk Relationship Specialty Start Date End Date Pedro Burt MD PCP - General 10/19/02 09/12/13 [address] [address] documented as of this encounter
--- OUTSIDE RECORDS SUMMARY | 2022-05-04 21:25 | XMS_ITS | Encounter Summary ---
:1980 Author Organization [place] Address [address] [place] [address] Care Team Providers Name Role Phone Pedro Burt MD Primary Care Provider Reason for Referral Specialty Diagnoses / Procedures Referred By Contact Refer red To Contact Pedro Burt MD [address] [place] [address] Referral ID Status Reason Start Date Expiration Date Visits Requ ested Visits Authorized Encounter Details Date Type Department Care Team Description 03/01/2009 Orders Only [facility] Pedro Burt MD DIAGNOSIS NOT YET Clinic [place] [address] Joyce DEFINED (Primary Dx) [address] [place], [place] [address] Social History Tobacco Use Types [...] Primary documented in this encounter Care Teams Eyeglass Frames Polisher Relationship Specialty Start Date End Date Pedro Burt MD PCP - General 10/19/02 09/12/13 [address] [address] documented as of this encounter
--- OUTSIDE RECORDS SUMMARY | 2022-05-04 21:25 | XMS_ITS | Encounter Summary ---
:1980 Author Organization [place] Address [address] [place] [address] Care Team Providers Name Role Phone Pedro Burt MD Primary Care Provider Reason for Visit Reason Onset Date Comments Formulary Issue 12/14/2008 tazorac is NOT cover ed Encounter Details Date Type Department Care Team Description 12/14/2008 Telephone [facility] Pedro Burt MD Formulary Issue Clinic [address] (tazorac is NOT [address] [place] [address] covered) [place] [address] [phone] (Wo rk) Social History Tobacco Use Types [...] on filedocumented in this encounter Care Teams Straw Hat Presser Relationship Specialty Start Date End Date Pedro Burt MD PCP - General 10/19/02 09/12/13 [address] [address] documented as of this encounter
--- OUTSIDE RECORDS SUMMARY | 2022-05-04 21:25 | XMS_ITS | Encounter Summary ---
:1980 Author Organization [place] Address [address] [place] [address] Care Team Providers Name Role Phone Pedro Burt MD Primary Care Provider Reason for Visit Reason Onset Date Comments Refill Request 12/17/2008 Vicodin Encounter Details Date Type Department Care Team Description 12/16/2008 MyC Refill [facility] Pedro Burt MD Refill Request Clinic [place] [address] Cook (Vicodin) [address] [place] [phone] (Wo rk) Social History Tobacco Use Types [...] - 12/17/2008 9:14 AM CDT Please see [employer] message, she is requesting to go back on Vicodin (a stronger dose than in the past), states the oxycontin is too strong for her. Please advise. Last OV: 06/25/08 Reason for visit: back pain Date last filled: 11/23/08 #60 Unable to fill PSO Eliz Squires RN Telephone Encounter - Eliz Squires - 12/17/2008 9:10 AM CDT Message from [employer]: Jewell Ascencion Lambert would like a refill of the following medications: VICODIN 5-500 MG OR TABS [Pedro Burt MD] [facility] Comment: Hey Dr. Burt! So Dr. Sauceda [...] documented in this encounter Care Teams Manager Of Operations Relationship Specialty Start Date End Date Pedro Burt MD PCP - General 10/19/02 09/12/13 [address] [address] documented as of this encounter
--- OUTSIDE RECORDS SUMMARY | 2022-05-04 21:25 | XMS_ITS | Encounter Summary ---
:1980 Author Organization [place] Address [address] [place] [address] Care Team Providers Name Role Phone Pedro Burt MD Primary Care Provider Reason for Visit Reason Comments Work Comp Pre-Op Exam Encounter Details Date Type Department Care Team Description 02/21/2009 Office Visit [facility] Pedro Burt MD Preop General Physical Exam (Primary Dx) ; Clinic [place] [address] Cook Dysuria; [address] [place] [address] [phone] Social History Tobacco Use Types Packs/Day Years [...] Ruiz - 02/21/2009 1:06 PM CDT [facility] [address] [place] [address] PRE-OP EVALUATION: Today's date: 02/21/2009 Jewell Lambert (: 1980) presents for pre-operative evaluation assessment as requested by . She requires evaluation and anesthesia risk assessment prior to undergoing surgery/procedure for proposed procedure: L1-2 fusion, artificial disks L3-4 Date of Surgery/ Procedure: 02/27/09 Time of Surgery/ Procedure: 8:00 AM Hospital/Surgical Facility: [facility] Fax number for surgical facility: [...] MICRO IF POSITIVE (02/21/2009 1:08 PM CDT) [facility] Method Time Signature Color Urine Yellow [facility] Appearance Urine Clear [facility] Glucose Urine Negative NEG mg/dL [facility] Bilirubin Urine Negative NEG [facility] Ketones Urine Negative NEG mg/dL [facility] Specific [place] 1.020 1.003 - [place] Urine 1.035 [facility] Blood Urine Negative NEG [facility] pH Urine 8.0 (H) 5.0 - 7.0 [place] pH [facility] Protein Albumin Negative NEG mg/dL [place] Urine [facility] Urobilinogen 0.2 0.2 - 1.0 [place] Urine EU/dL [facility] Nitrite Urine Negative NEG [facility] Leukocyte Negative NEG [place] Esterase Urine [facility] Source Midstream [place] Urine [facility] Specimen Anatomical Collection Method Collection Time Receive d Time (Source) Location / / Volume Laterality 02/21/2009 1:08 PM 9 1:11 CDT PM CDT Pedro Burt MD LABORATORY Performing Organization Address [facility]/ZIP [facility] Phon e Number [address] [address] [facility] HGB (02/21/2009 1:07 PM CDT) P athologist Signature Hemoglobin 14.3 11.7 - 15.7 [facility] g/dL [facility] Specimen Anatomical Collection Method Collection Time Receive d Time (Source) Location / / Volume Laterality 02/21/2009 1:07 PM 9 1:10 CDT PM CDT Pedro Burt MD LABORATORY Performing Organization Address [facility] Phon e Number [address] [address] [facility] documented in this encounter Visit Diagnoses Diagnosis Preop general physical exam - Primary Other specified pre-operative examinatio n Dysuria Contraception Unspecified contraceptive management documented in this encounter Care Teams Fitness And Wellness Director Relationship Specialty Start Date End Date Pedro Burt MD PCP - General 10/19/02 09/12/13 [address] [address] documented as of this encounter
--- OUTSIDE RECORDS SUMMARY | 2022-05-04 21:25 | XMS_ITS | Encounter Summary ---
:1980 Author Organization [place] Address [address] [place] [address] Care Team Providers Name Role Phone Pedro Burt MD Primary Care Provider Danette Shepherd MD Primary Care Provider Reba Veliz DO Unavailable [phone] Jairon Greene MD Unavailable [facility], [facility] Primary Care Provider [phone] Encounter Details Date Type Department Care Team Description 02/27/2009 [facility] Pedro Burt MD CONSULTATION (Primary Clinic [place] [address] [place] [address]) [address] [facility] [place] [address] [phone] (Wo rk) Social History Tobacco Use Types [...] Primary documented in this encounter Care Teams Ball Machine Operator Relationship Specialty Start Date End Date Pedro Burt MD PCP - General 10/19/02 09/12/13 [address] [facility] [place] [address] Danette Shepherd MD PCP - General Family Practice 09/13/13 12/16/21 [facility] [address] [place] [address] Rosette Hurt PCP - General 12/17/21 [facility] [address] [place] [address] Reba Veliz Assigned OBGYN Provider 03/15/20 07/06/20 DO Silvina [address] [place] [address] [address] [place] [address] Jairon Greene, Assigned Neuroscience 03/15/20 10/26/20 Provider [facility] [address] [place] [address] documented as of this encounter
--- OUTSIDE RECORDS SUMMARY | 2022-05-04 21:25 | XMS_ITS | Encounter Summary ---
:1980 Author Organization [place] Address [address] [place] [address] Care Team Providers Name Role Phone Pedro Burt MD Primary Care Provider Reason for Visit Reason Onset Date Comments Refill Request 01/22/2009 vicodin Encounter Details Date Type Department Care Team Description 01/21/2009 MyC Refill [facility] Pedro Burt MD Refill Request Clinic [place] [address] Cook (vicodin) [address] [place] [phone] (Wo rk) Social History Tobacco Use Types [...] none, 08/30 and 08/29 Pt went to [place] for UTI FYI. Ruthy Echols RN Telephone Encounter - Ruthy Echols - 01/22/2009 12:16 PM CDT Message from [employer]: Jewell Ascencion Lambert would like a refill of the following medications: VICODIN ES 7.5-750 MG OR TABS [Pedro Burt MD] Preferred pharmacy: [facility] Comment: documented in this encounter Plan of Treatment Not on filedocumented as of this encounter Visit Diagnoses Diagnosis Thoracic or lumbosacral neuritis or radi culitis, unspecified documented in this encounter Care Teams Printing Plate Clerk Relationship Specialty Start Date End Date Pedro Burt MD PCP - General 10/19/02 09/12/13 [address] [address] documented as of this encounter
--- OUTSIDE RECORDS SUMMARY | 2022-05-04 21:25 | XMS_ITS | Encounter Summary ---
:1980 Author Organization [place] Address [address] [place] [address] Care Team Providers Name Role Phone Pedro Burt MD Primary Care Provider Reason for Visit Reason Onset Date Comments Refill Request 02/15/2009 Encounter Details Date Type Department Care Team Description 02/14/[address] [facility] Vickie Burt MD Refill Request [facility] [address] [place] [address] (W ork) [address] [phone] Social History Tobacco Use Types Packs/Day Years [...] - 02/15/2009 12:41 PM CDT Message from [employer]: Jewell Garciabarry would like a refill of the following medications: VICODIN ES 7.5-750 MG OR TABS [Pedro Burt MD] Pref[facility] pharmacy: [facility] Comment: documented in this encounter Plan of Treatment Not on filedocumented as of this encounter Visit Diagnoses Diagnosis Thoracic or lumbosacral neuritis or radi culitis, unspecified - Primary documented in this encounter Care Teams Supervisor Fish Hatchery Relationship Specialty Start Date End Date Pedro Burt MD PCP - General 10/19/02 09/12/13 [address] [address] documented as of this encounter
--- OUTSIDE RECORDS SUMMARY | 2022-05-04 21:25 | XMS_ITS | Encounter Summary ---
:1980 Author Organization [place] Address [address] [place] [address] Care Team Providers Name Role Phone Pedro Burt MD Primary Care Provider Reason for Visit Reason Onset Date Comments Refill Request 11/23/2008 vicodin Encounter Details Date Type Department Care Team Description 11/23/2008 Refill [facility] Pedro Burt MD Refill Request (vicodin) Clinic [address] [address] [phone] Social History Tobacco Use Types Packs/Day Years [...] unspecified documented in this encounter Care Teams Animal Laboratory Technician Relationship Specialty Start Date End Date Pedro Burt MD PCP - General 10/19/02 09/12/13 [address] [address] documented as of this encounter
--- OUTSIDE RECORDS SUMMARY | 2022-05-04 21:25 | XMS_ITS | Encounter Summary ---
:1980 Author Organization [place] Address [address] [place] [address] Care Team Providers Name Role Phone Pedro Burt MD Primary Care Provider Reason for Visit Reason Onset Date Comments Formulary Issue 11/27/2008 Ensure, NOT COVERED Encounter Details Date Type Department Care Team Description 11/27/2008 Telephone [facility] Pedro Burt MD Formulary Issue [facility] [address] [place] [address] (Ensure, NOT COVERED) [address] [place] [phone] (Wo rk) Social History Tobacco Use Types [...] wish to fill this prescription. Janel Tavera UTILITY PORTER Telephone Encounter - Rachel Tavera - 11/27/2008 9:58 AM CDT Pharmacy Benefit Information: Provider: BRITTANY Fax#- ID#- [id number] Medication/SIG: [facility] Insurance Requires Prior Authorization - [...] on filedocumented in this encounter Care Teams Jute Bag Clipper Relationship Specialty Start Date End Date Pedro Burt MD PCP - General 10/19/02 09/12/13 [address] [address] documented as of this encounter
--- OUTSIDE RECORDS SUMMARY | 2022-05-04 21:25 | XMS_ITS | Encounter Summary ---
:1980 Author Organization [place] Address [address] [place] [address] Care Team Providers Name Role Phone Pedro Burt MD Primary Care Provider Reason for Visit Reason Onset Date Comments Erroneous encounter-disregard 10/26/2008 Encounter Details Date Type Department Care Team Description 10/25/2008 [facility] Pedro Burt MD Erroneous Clinic [place] [address] [place] [address] encounter-disregard [address] [place] [phone] (Wo rk) Social History [...] - 10/26/2008 8:08 AM CDT Message from [employer]: Jewell Vegas Fausto would like a refill of the following medications: VICODIN 5-500 MG OR TABS [Pedro Burt MD] Pref[facility] pharmacy: [facility] Comment: Hey Dr. Burt its Jewell!! Hope you are doing good!! Hey I have a question im [place] family in [place] and I have about 15 vicodin left and do not want to run out up there is there, wondering if you could refill my perscription I know its alex early but I do not want to be in pain and be all the way up there. Let me know k or call [phone] Jewell Navarrete documented in this encounter Plan of Treatment Not on filedocumented as of this encounter Visit Diagnoses Diagnosis Thoracic or lumbosacral neuritis or radi culitis, unspecified - Primary documented in this encounter Care Teams Dredge Operator Relationship Specialty Start Date End Date Pedro Burt MD PCP - General 10/19/02 09/12/13 [address] [address] documented as of this encounter
--- OUTSIDE RECORDS SUMMARY | 2022-05-04 21:25 | XMS_ITS | Encounter Summary ---
:1980 Author Organization [place] Address [address] [place] [address] Care Team Providers Name Role Phone Pedro Burt MD Primary Care Provider Reason for Visit Reason Onset Date Comments Formulary Issue 01/10/2009 jason-D not covere d Encounter Details Date Type Department Care Team Description 01/10/2009 Telephone [facility] Pedro Burt MD Formulary Issue [place] [address] Cook (jason-D not covered) [address] [place] [address] [facility] [place] [address] [phone] (Wo rk) Social History Tobacco Use Types [...] unspecified documented in this encounter Care Teams Core Stacker Relationship Specialty Start Date End Date Pedro Burt MD PCP - General 10/19/02 09/12/13 7[address] [place] [address] documented as of this encounter
--- OUTSIDE RECORDS SUMMARY | 2022-05-04 21:25 | XMS_ITS | Encounter Summary ---
:1980 Author Organization [place] Address [address] [place] [address] Care Team Providers Name Role Phone Pedro Burt MD Primary Care Provider Reason for Visit Reason Onset Date Comments Refill Request 09/24/2008 Vicodin Encounter Details Date Type Department Care Team Description 09/24/2008 Refill [facility] Pedro Burt MD Refill Request (Vicodin) Clinic [address] [address] [phone] Social History Tobacco Use Types Packs/Day Years [...] Please hand fax with signature to Javy [phone] Kimberly Putnam CMA documented in this encounter Plan of Treatment Not on filedocumented as of this encounter Visit Diagnoses Diagnosis Thoracic or lumbosacral neuritis or radi culitis, unspecified documented in this encounter Care Teams Demonstrator Sewing Techniques Relationship Specialty Start Date End Date Pedro Burt MD PCP - General 10/19/02 09/12/13 [address] [address] documented as of this encounter
--- OUTSIDE RECORDS SUMMARY | 2022-05-04 21:25 | XMS_ITS | Encounter Summary ---
:1980 Author Organization [place] Address [address] [place] [address] Care Team Providers Name Role Phone Pedro Burt MD Primary Care Provider Reason for Visit Reason Onset Date Comments Refill Request 10/16/2008 Vicodin Encounter Details Date Type Department Care Team Description 10/16/2008 Refill M [facility] Pedro Burt MD Refill Request (Vicodin) Clinic [address] [address] [phone] Social History Tobacco Use Types Packs/Day Years [...] unspecified documented in this encounter Care Teams Farm Equipment Maintenance Supervisor Relationship Specialty Start Date End Date Pedro Burt MD PCP - General 10/19/02 09/12/13 [address] [id number] documented as of this encounter
--- OUTSIDE RECORDS SUMMARY | 2022-05-04 21:25 | XMS_ITS | Encounter Summary ---
:1980 Author Organization [place] Address [address] [place] [address] Care Team Providers Name Role Phone Pedro Burt MD Primary Care Provider Reason for Visit Reason Onset Date Comments Refill Request 10/25/2008 Vicodin Encounter Details Date Type Department Care Team Description 10/25/2008 Refill M [facility] Pedro Burt MD Refill Request (Vicodin) Clinic [address] [address] [phone] Social History Tobacco Use Types Packs/Day Years [...] 10/26/2008 8:11 AM CDT Pt sent additional Triggithart message requesting Vicodin refill early. CL primary [...] Primary documented in this encounter Care Teams Mobile Game Engineer Relationship Specialty Start Date End Date Pedro Burt MD PCP - General 10/19/02 09/12/13 [address] [id number] documented as of this encounter
--- OUTSIDE RECORDS SUMMARY | 2022-05-04 21:26 | XMS_ITS | Encounter Summary ---
:1980 Author Organization [place] Address [address] [place] [address] Care Team Providers Name Role Phone Pedro Burt MD Primary Care Provider Reason for Referral - Closed Specialty Diagnoses / Procedures Referred By Contact Refer red To Contact Diagnoses Abdominal pain, generalized Pedro Burt MD [address] [place] [address] Referral ID Status Reason Start Date Expiration Date Visits Requ ested Visits Authorized [id number] Closed 02/29/2004 05/23/2011 1 1 Reason for Visit Reason Onset Date Comments CT Results 02/14/2004 ultrasound results Encounter Details Date Type Department Care Team Description 02/14/2004 Telephone [facility] Pedro Burt MD CT Results (ultrasound Clinic [place] [address] results) [address] [facility] [place] [address] [phone] (Wo rk) Social History Tobacco Use Types [...] 8:36 AM Orders created and faxed to [facility], they will call patient to schedule. (Chi in referrals) >> GADIEL IYER [facility] Feb 28, 2004 6:31 PM Pt. agreed to have this done again, Chi or [place] does she need another referral, please let her know. Gadiel Iyer RN. >> JEANINE FREEDMAN [facility] Feb 28, 2004 12:41 PM LM with pt's mother for her to call back for Dr. Burt's message. Jeanine Freedman RN >> GUILLERMINA KELSEY [facility] Feb 19, 2004 5:22 PM LMOM to call gold. Guillermina Kelsey RN >> PEDRO BURT [facility] Feb 18, 2004 2:59 PM sure, it is the best possible test >> JEANINE FREEDMAN [facility] Feb 18, 2004 2:42 PM Spoke with the pt. who stated she did not actually have the endoscopy done because she pulled the tube out lack of cooperation. She said she would be willing to try the endoscopy again if you agree. Jeanine Freedman RN >> JEANINE FREEDMAN [facility] Feb 18, 2004 1:24 PM LM with male at home number for pt. to call back. Jeanine Freedman RN >> DANG ALTAMIRANO [facility] Feb 14, 2004 4:48 PM NA Dang Altamirano RN >> PEDRO BURT [facility] Feb 14, 2004 4:32 PM please have pt d/w GI, as since she had upper GI endoscopy, they should have seen an ulcer if therewas one. The only other condition would be a barium swallow, and I don't think it would be any better than actually having looked by endoscopy *(which was also negative) >> JEANINE FREEDMAN [facility] Feb 14, 2004 4:28 PM Spoke to pt. to give her results of abd. ultrasound as normal. Pt. states that the ultrasound was suppose to be looking at/for an ulcer, pt. states the [employer] tech said they can't see ulcers with [...] Primary documented in this encounter Care Teams Regulator Tester Relationship Specialty Start Date End Date Pedro Burt MD PCP - General 10/19/02 09/12/13 [address] [id number] documented as of this encounter
--- OUTSIDE RECORDS SUMMARY | 2022-05-04 21:26 | XMS_ITS | Encounter Summary ---
:1980 Author Organization [place] Address [address] [place] [address] Care Team Providers Name Role Phone Pedro Burt MD Primary Care Provider Reason for Visit Reason Onset Date Comments Refill Request 06/06/2008 vicodin Encounter Details Date Type Department Care Team Description 06/06/2008 [facility]ill [facility] Pedro Burt MD Refill Request (vicodin) Clinic [address] [address] [phone] Social History Tobacco Use Types Packs/Day Years [...] AM CST Pt notified Marce Altamirano RN TLER CAR Telephone Encounter - Pedro Burt - 06/06/2008 9:36 AM CST Should be seen for future scripting TLER CAR Telephone Encounter - Marce Altamirano - 06/06/2008 8:53 AM CST Last OV: 02/02/08 Reason for visit: chronic rhinitis, folliculitis Date last filled: 04/24/08 Not PSO, routed Marce Altamirano RN TLER CAR documented in this encounter Plan of Treatment Not on filedocumented as of this encounter Visit Diagnoses Diagnosis Thoracic or lumbosacral neuritis or radi culitis, unspecified - Primary documented in this encounter Care Teams Financial Examiner Relationship Specialty Start Date End Date Pedro Burt MD PCP - General 10/19/02 09/12/13 [address] [id number] documented as of this encounter
--- OUTSIDE RECORDS SUMMARY | 2022-05-04 21:26 | XMS_ITS | Encounter Summary ---
:1980 Author Organization [place] Address [address] [place] [address] Care Team Providers Name Role Phone Pedro Burt MD Primary Care Provider Reason for Visit Reason Comments Refill Request Encounter Details Date Type Department Care Team Description 10/01/2003 Refill M [facility] Marnie Jain, Refill Request Kristine MARTINS [address] [place] [address] [place] [address] [phone] Social History Tobacco Use Types Packs/Day Years [...] on filedocumented in this encounter Care Teams Channel Program Manager Relationship Specialty Start Date End Date Pedro Burt MD PCP - General 10/19/02 09/12/13 [address] [id number] documented as of this encounter
--- OUTSIDE RECORDS SUMMARY | 2022-05-04 21:26 | XMS_ITS | Encounter Summary ---
:1980 Author Organization [place] Address [address] [place] [address] Care Team Providers Name Role Phone Pedro [...] Department Care Team Description 02/02/2008 Office Visit [facility] Pedro Burt MD Chronic Rhinitis; Clinic [place] [address] [address] [place] [address] [phone] (Wo rk) Social History Tobacco Use Types [...] 02/02/2008 2:30 PM CDT >> KIMBERLY CASTILLO [facility] Feb 02, 2008 2:42 PM Jewell [...] follicles documented in this encounter Care Teams Guest Relations Receptionist Relationship Specialty Start Date End Date Pedro Burt MD PCP - General 10/19/02 09/12/13 [address] [id number] documented as of this encounter
--- OUTSIDE RECORDS SUMMARY | 2022-05-04 21:26 | XMS_ITS | Encounter Summary ---
:1980 Author Organization [place] Address [address] [place] [address] Care Team Providers Name Role Phone Pedro Burt MD Primary Care Provider Reason for Visit Reason Comments Refill Request Encounter Details Date Type Department Care Team Description 08/20/2003 Refill [facility] Marnie Muñoz, Refill Request Kristine MARTINS [address] [place] [address] [place] [address] [phone] Social History Tobacco Use Types Packs/Day Years Used Date Smoking Tobacco: Every Day Cigarettes 5 Comments: less than 1/2 pack per day Alcohol Use Standard Drinks/Week Comments No 0 (1 standard drink = 0.6 oz pure alcoho l) Sex Assigned at Date Recorded Not on file documented as of this encounter Miscellaneous Notes Telephone Encounter - 08/20/2003 11:59 PM COST ACCOUNTING MANAGER >> ZARIA ARROYO WedAug 20, 2003 12:16 PM >> CALL RECEIVED. Contact: Pt.'s last visit was 03/14/03 so I will refill for 1 month and pt. needs to make appt. with Dr. Muñoz for next refill. Pt. advised. documented in this encounter Plan of Treatment Not on filedocumented as of this encounter Visit Diagnoses Not on filedocumented in this encounter Care Teams Recovery Agent Relationship Specialty Start Date End Date Pedro Burt MD PCP - General 10/19/02 09/12/13 [address] [place] [address] documented as of this encounter
--- OUTSIDE RECORDS SUMMARY | 2022-05-04 21:26 | XMS_ITS | Encounter Summary ---
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 Left mssg on machine. Dwight Perry LPN [...] call when ready to be picked up [phone] documented in this encounter Plan of Treatment Not on filedocumented as of this encounter Visit Diagnoses Diagnosis Attention deficit disorder with hyperact ivity(314.01) - Primary Attention deficit disorder with hyperact ivity documented in this encounter Care Teams Outside Sales Relationship Specialty Start Date End Date Pedro Burt MD PCP - General 10/19/02 09/12/13 [address] [id number] documented as of this encounter
--- OUTSIDE RECORDS SUMMARY | 2022-05-04 21:26 | XMS_ITS | Encounter Summary ---
:1980 Author Organization [place] Address [address] [place] [address] Care Team Providers Name Role Phone Pedro Burt MD Primary Care Provider Reason for Visit Reason Comments Anxiety pt states that she's waking up in the night having anxiety attacks Encounter Details Date Type Department Care Team Description 03/16/2007 Office Visit [facility] Pedro Burt MD GENERALIZED ANXIETY DIS; [address] TOBACCO USE DISORDER [address] [place] [id number] Social History Tobacco Use Types Packs/Day Years [...] disorder documented in this encounter Care Teams General Maintenance Mechanic Relationship Specialty Start Date End Date Pedro Burt MD PCP - General 10/19/02 09/12/13 [address] [id number] documented as of this encounter
--- OUTSIDE RECORDS SUMMARY | 2022-05-04 21:26 | XMS_ITS | Encounter Summary ---
:1980 Author Organization [place] Address [address] [place] [address] Care Team Providers Name Role Phone Pedro Burt MD Primary Care Provider Reason for Visit Reason Comments UTI Encounter Details Date Type Department Care Team Description 09/05/2008 Office Visit [facility] Sheri Quevedo PA-C Urinary Tract [place] [facility] Infection, Site not [address] [place] [address] CTR Specified ([place] [address]) [address] [place], [place] [address] (Wo rk) Social History [...] if not improved or sooner if worsen. hSeri Quevedo PA-C documented in this encounter Plan of Treatment Not on filedocumented as of this encounter Procedures Procedure Name Priority Date/Time Associated Diagnosis Comme nts ZZCL U/A, W/O Routine 09/05/2008 4:23 PM Urinary Tract Results for this MICRO, NON AUTO CDT Infection, Site not proce dure are in Specified the results section. documented in this encounter Results (ABNORMAL) Urine Test [[id number]] (09/05/2008 4:23 PM CDT) [facility] Method Time Signature Source midstream [facility] Color Urine patrick [facility] Appearance Urine hazy [facility] Glucose negative Neg mg/dL [facility] Bilirubin Urine negative Neg [facility] Ketones negative neg - neg [facility] mg/dL Specific [place] 1.025 1.003 - [facility] Urine 1.035 Blood Urine non-hemolyzed Neg [facility] moderate pH Arterial 6.5 5.0 - 7.0 [facility] Protein Urine negative neg - neg [facility] mg/dL Urobilinogen 0.2 0.2 - 1.0 [facility] Urine EU/dL Nitrite Urine negative Neg [facility] Leukocyte 3+ Neg [facility] Esterase Urine Sheri Quevedo PA-C LABORATORY Performing Organization Address City/State/ZIP Code [facility] e Number [place] [facility] [address] [place] [address] [facility] documented in this encounter Visit Diagnoses Diagnosis Urinary tract infection, site not specif ied - Primary documented in this encounter Care Teams Rn Travel Relationship Specialty Start Date End Date Pedro Burt MD PCP - General 10/19/02 09/12/13 [address] [id number] documented as of this encounter
--- OUTSIDE RECORDS SUMMARY | 2022-05-04 21:26 | XMS_ITS | Encounter Summary ---
:1980 Author Organization [place] Address [address] [place] [address] Care Team Providers Name Role Phone Pedro Burt MD Primary Care Provider Reason for Visit Reason Comments Referral for ultrasound Encounter Details Date Type Department Care Team Description 02/07/2004 Office Visit [facility] Pedro Burt MD ABDOMINAL PAIN EPIGASTRIC (Primary Dx); Clinic [place] [address] ESOPHAGEAL REFLUX [address] [place] [address] [phone] Social History Tobacco Use Types Packs/Day Years [...] GI endoscopy with Dr. Leona Funes of [facility] when she was too uncomfortable with [...] per orders. Pt also accepts referral to [facility] for complete abdominal ultrasound. Return office [...] reflux documented in this encounter Care Teams Credit Counselor Relationship Specialty Start Date End Date Pedro Burt MD PCP - General 10/19/02 09/12/13 [address] [id number] documented as of this encounter
--- OUTSIDE RECORDS SUMMARY | 2022-05-04 21:26 | XMS_ITS | Encounter Summary ---
:1980 Author Organization [place] Address [address] [place] [address] Care Team Providers Name Role Phone Pedro Burt MD Primary Care Provider Reason for Visit Reason Comments Refill Request Encounter Details Date Type Department Care Team Description 11/16/2003 Refill [facility] Marnie Muñoz, Refill Request Kristine MARTINS [address] [place] [address] [place] [address] [phone] Social History Tobacco Use Types Packs/Day Years [...] on filedocumented in this encounter Care Teams It Programmer Relationship Specialty Start Date End Date Pedro Burt MD PCP - General 10/19/02 09/12/13 [address] [id number] documented as of this encounter
--- OUTSIDE RECORDS SUMMARY | 2022-05-04 21:26 | XMS_ITS | Encounter Summary ---
:1980 Author Organization [place] Address [facility] [place] [address] Care Team Providers Name Role Phone Pedro Burt MD Primary Care Provider Encounter Details Date Type Department Care Team Description 08/27/2004 Office Visit [facility] [place], NO SHOW (Primary Dx) [place] [address] [place], [place] SERVICE [address] [address] [facility] [phone] 4[address] [place], [place] [address] (Wo rk) Social History Tobacco [...] documented in this encounter Care Teams Sales And Retail Management Recruiter Relationship Specialty Start Date End Date Pedro Burt MD PCP - General 10/19/02 09/12/13 [address] [id number] documented as of this encounter
--- OUTSIDE RECORDS SUMMARY | 2022-05-04 21:26 | XMS_ITS | Encounter Summary ---
:1980 Author Organization [place] Address [address] [place] [address] Care Team Providers Name Role Phone Pedro Burt MD Primary Care Provider Reason for Visit Reason Onset Date Comments Refill Request 02/16/2008 gen vicodin Encounter Details Date Type Department Care Team Description 02/16/2008 [facility]ill [facility] Pedro Burt MD Refill Request (gen Clinic [place] [address] vicodin) [address] [place] [phone] Social History Tobacco Use Types Packs/Day Years [...] unspecified documented in this encounter Care Teams Associate Professor Of Criminal Justice Relationship Specialty Start Date End Date Pedro Burt MD PCP - General 10/19/02 09/12/13 [address] [id number] documented as of this encounter
--- OUTSIDE RECORDS SUMMARY | 2022-05-04 21:26 | XMS_ITS | Encounter Summary ---
:1980 Author Organization [place] Address [address] [place] [address] Care Team Providers Name Role Phone Pedro Burt MD Primary Care Provider Reason for Visit Reason Onset Date Comments Forms 02/04/2007 Encounter Details Date Type Department Care Team Description 02/04/2007 Telephone [facility] Vickie Burt MD Forms [place] [address] [place] [address] [place], [place] [address] [place] [phone] Social History Tobacco Use Types Packs/Day Years [...] form, form was never placed in pt fruit picker file at front desk officer. Dwight Perry LPN Telephone Encounter - Dwight Perry - 02/08/2007 2:59 PM CDT Left message on machine for patient to call back. No forms at [facility], did she receive them? Dwight Perry LPN Telephone Encounter - Janell Sandoval - 02/04/2007 3:22 PM CDT LM on for pt to call back. Completed FMLA forms at [facility] awaiting destination. Santana Sandoval CMA documented in this encounter Plan of Treatment Not on filedocumented as of this encounter Visit Diagnoses Not on filedocumented in this encounter Care Teams Building Performance Specialist Relationship Specialty Start Date End Date Pedro Burt MD PCP - General 10/19/02 09/12/13 [address] [id number] documented as of this encounter
--- OUTSIDE RECORDS SUMMARY | 2022-05-04 21:26 | XMS_ITS | Encounter Summary ---
:1980 Author Organization [place] Address [address] [place] [address] Care Team Providers Name Role Phone Pedro Burt MD Primary Care Provider Encounter Details Date Type Department Care Team Description 02/14/2007 Telephone [facility] Vickie Burt MD [address] [phone] Social History Tobacco Use Types Packs/Day Years [...] - 02/16/2007 9:04 AM CDT I sent [employer] message asking her to fax a new FMLA for to [place] to your attention if she did not receive the original. Dwight Perry LPN Telephone Encounter - Shalini Marinelli - 02/14/2007 7:32 PM CDT LMOM for pt to CB to [place]on- wondering if she got her FMLA forms- Shalini Marinelil CMA documented in this encounter Plan of Treatment Not on filedocumented as of this encounter Visit Diagnoses Not on filedocumented in this encounter Care Teams Tyre Builder Relationship Specialty Start Date End Date Pedro Burt MD PCP - General 10/19/02 09/12/13 [address] [id number] documented as of this encounter
--- OUTSIDE RECORDS SUMMARY | 2022-05-04 21:26 | XMS_ITS | Encounter Summary ---
:1980 Author Organization [address] [place] [address] Care Team Providers Name Role Phone Pedro Burt MD Primary Care Provider Encounter Details Date Type Department Care Team Description 09/15/[address] [facility] [place] DI AGNOSIS NOT YET Clinic Gabi Delgado MD DEFINED (Primary Dx) [address] [place], [place] SERVICE [address] [address] [facility] [phone] 4[address] [place], [place] [address] (Wo rk) Social History Tobacco [...] Primary documented in this encounter Care Teams Dealer Sales Rep Relationship Specialty Start Date End Date Pedro Burt MD PCP - General 10/19/02 09/12/13 [address] [id number] documented as of this encounter
--- OUTSIDE RECORDS SUMMARY | 2022-05-04 21:26 | XMS_ITS | Encounter Summary ---
:1980 Author Organization [place] Address [address] [place] [address] Care Team Providers Name Role Phone Pedro Burt MD Primary Care Provider Encounter Details Date Type Department Care Team Description 11/22/2003 Telephone [facility] Vickie Burt MD [place] [address] [place] [address] [place] [phone] Social History Tobacco Use Types Packs/Day Years [...] on filedocumented in this encounter Care Teams Transportation Engineering Technician Relationship Specialty Start Date End Date Pedro Burt MD PCP - General 10/19/02 09/12/13 [address] [address] documented as of this encounter
--- OUTSIDE RECORDS SUMMARY | 2022-05-04 21:26 | XMS_ITS | Encounter Summary ---
:1980 Author Organization [place] Address [address] [place] [address] Care Team Providers Name Role Phone Pedro Burt MD Primary Care Provider Reason for Visit Reason Comments Refill Request Encounter Details Date Type Department Care Team Description 08/20/2003 Refill M [facility] Marnie Muñoz, Refill Request Kristine MARTINS [address] [place] [address] [place] [address] [phone] Social History Tobacco Use Types Packs/Day Years Used Date Smoking Tobacco: Every Day Cigarettes 5 Comments: less than 1/2 pack per day Alcohol Use Standard Drinks/Week Comments No 0 (1 standard drink = 0.6 oz pure alcoho l) Sex Assigned at Date Recorded Not on file documented as of this encounter Miscellaneous Notes Telephone Encounter - 08/20/2003 11:59 PM PENSION ADMINISTRATOR >> JENNYFER BALTAZAR [facility] October 01, 2003 2:51 PM >> CALL RECEIVED. Contact: documented in this encounter Plan of Treatment Not on filedocumented as of this encounter Visit Diagnoses Not on filedocumented in this encounter Care Teams Pets Salesperson Relationship Specialty Start Date End Date Pedro Burt MD PCP - General 10/19/02 09/12/13 [address] [place] [address] documented as of this encounter
--- OUTSIDE RECORDS SUMMARY | 2022-05-04 21:26 | XMS_ITS | Encounter Summary ---
:1980 Author Organization [place] Address [address] [place] [address] Care Team Providers Name Role Phone Pedro Burt MD Primary Care Provider Reason for Visit Reason Comments Care PNV Encounter Details Date Type Department Care Team Description 04/12/2003 Office Visit [facility] [place] SUPERVIS [address] Clinic Maik Mitchell MD PREG (Martha Koch) [place] [address] [address] Social History Tobacco Use Types [...] Comments Blood Pressure 122/70 04/12/2003 8:30 AM TITLE ONE KINDERGARTEN TEACHER Pulse - - Temperature - - Respiratory Rate - - Oxygen Saturation - - Inhaled Oxygen Concentration - - Weight 64.9 kg (143 lb) 04/12/2003 8:30 AM TITLE ONE KINDERGARTEN TEACHER Height - - Body Mass Index 23.08 10/30/2002 2:00 PM CDT documented in this encounter Progress Notes [place] - 01/30/2010 6:19 PM CDT Doing well. Induction scheduled. E ONE KINDERGARTEN TEACHER documented in this encounter Nursing Notes 04/12/2003 8:30 AM CST >> DEXTER ROBERSON 04/12/2003 8:41 am pt here for PNV, pt is 39 weeks , c/o cotractions last night, no contractions today T.Roberson RMA documented in this encounter Plan of Treatment Not on filedocumented as of this encounter Visit Diagnoses Diagnosis Supervision of normal first - Primary documented in this encounter Care Teams Landscape Designer Relationship Specialty Start Date End Date Pedro Burt MD PCP - General 10/19/02 09/12/13 [address] [id number] documented as of this encounter
--- OUTSIDE RECORDS SUMMARY | 2022-05-04 21:26 | XMS_ITS | Encounter Summary ---
:1980 Author Organization [place] Address [address] [place] [address] Care Team Providers Name Role Phone Pedro Burt MD Primary Care Provider Encounter Details Date Type Department Care Team Description 12/12/2003 Orders Only [facility] Pedro Burt MD DIAGNOSIS NOT YET Clinic [place] [address] [place] [address] DEFINED (Primary Dx) [address] [place], [place] [address] [phone] Social History Tobacco Use Types Packs/Day Years [...] Procedure Name Priority Date/Time Associated Diagnosis Comme [facility] UGI ENDOSCOPY, SIMPLE Routine 12/12/2003 [...] Primary documented in this encounter Care Teams Clinical Informatics Strategist Relationship Specialty Start Date End Date Pedro Burt MD PCP - General 10/19/02 09/12/13 [address] [place] [address] documented as of this encounter
--- OUTSIDE RECORDS SUMMARY | 2022-05-04 21:26 | XMS_ITS | Encounter Summary ---
:1980 Author Organization [place] Address [address] [place] [address] Care Team Providers Name Role Phone Pedro Burt MD Primary Care Provider Reason for Visit Reason Onset Date Comments Refill Request 07/24/2008 VICODIN Encounter Details Date Type Department Care Team Description 07/24/2008 Refill [facility] Pedro Burt MD Refill Request (VICODIN) Clinic [address] [address] [phone] Social History Tobacco Use Types Packs/Day Years [...] Rx faxed to [facility]. Lashell Verma CMA [place] MEDIA STRATEGIST Telephone Encounter - Lashell Verma - 07/25/2008 1:34 PM CST LMOM for pt to cb. Which pharmacy would she like RX faxed to? Rx is at [facility]. Lashell Verma CMA AL MEDIA STRATEGIST Telephone Encounter - Kvng Santacruz 07/24/2008 5:19 PM CST Can wait till primary is in Sakshi Santacruz M.D [place] MEDIA STRATEGIST Telephone Encounter - Marce Altamirano - 07/24/2008 10:30 AM CST Last OV: 06/25/08 Reason for visit: THORACIC AND LUMBARSACRAL NEURITIS, anxiety Date last filled: 06/25/08 Carmel Marinelli gone, routed to , please approve, print sign and fax Marce Altamirano RN AL MEDIA STRATEGIST documented in this encounter Plan of Treatment Not on filedocumented as of this encounter Visit Diagnoses Diagnosis Thoracic or lumbosacral neuritis or radi culitis, unspecified documented in this encounter Care Teams Neighborhood Worker Relationship Specialty Start Date End Date Pedro Burt MD PCP - General 10/19/02 09/12/13 [address] [place] [id number] documented as of this encounter
--- OUTSIDE RECORDS SUMMARY | 2022-05-04 21:26 | XMS_ITS | Encounter Summary ---
:1980 Author Organization [place] Address [address] [place] [address] Care Team Providers Name Role Phone Pedro Burt MD Primary Care Provider Reason for Referral - Closed Specialty Diagnoses / Procedures Referred By Contact Refer red To Contact Diagnoses Thoracic or lumbosacral neuritis or radiculitis, unspecified Pedro Burt MD [address] [place] [address] Referral ID Status Reason Start Date Expiration Date Visits Requ ested Visits Authorized [id number] Closed 01/19/2007 05/23/2011 1 1 Reason for Visit Reason Comments Back Pain w/c pt was turning and lifti ng at the same time at work and wretched her back Encounter Details Date Type Department Care Team Description 01/19/2007 Office Visit [facility] Pedro Burt MD LUMBOSACRAL NEURITIS Clinic [address] NOS (Primary Dx) [address] [place] [address] [phone] Social History Tobacco Use Types Packs/Day Years [...] 01/19/2007 4:32 PM CDT Jewell Lambert Employer: [employer] Date of Treatment: 01.19.2007 Date of Accident: 01.14.2007 History: Pt, otherwise healthy, twisted her mid-torso and lifted 30 lb weight at the same time, experiencing sudden and immediate low back pain that has progressed to include pain into left lower leg. Witnessed by work diet supervisor. EXAMINATION: Skin: negative Eyes: negative Ears/Nose/Throat: [...] by spinal surgeons (Dr. Miguelito Jordan at [facility]). Other restrictions: None FOLLOW-UP Follow up [...] Procedure Name Priority Date/Time Associated Diagnosis Comme [facility] ORTHOPEDIC HAND CULTIVATOR Routine 06/05/2010 Thoracic or lumbosac ral REFERRAL neuritis or radiculitis, unspecified documented in this encounter Results CONSULT ORTHO HAND CULTIVATOR (06/05/2010) Narrative This result has an attachment that is no t available. Pedro Burt MD REFERRAL documented in this encounter Visit Diagnoses Diagnosis Thoracic or lumbosacral neuritis or radi culitis, unspecified - Primary documented in this encounter Care Teams Blood Bank Attendant Relationship Specialty Start Date End Date Pedro Burt MD PCP - General 10/19/02 09/12/13 [address] [id number] documented as of this encounter
--- OUTSIDE RECORDS SUMMARY | 2022-05-04 21:26 | XMS_ITS | Encounter Summary ---
:1980 Author Organization [place] Address [address] [place] [address] Care Team Providers Name Role Phone Pedro Burt MD Primary Care Provider Reason for Visit Reason Onset Date Comments Medication Request 03/22/2007 GORMAN Encounter Details Date Type Department Care Team Description 03/22/2007 Telephone [facility] [place] [facility] Pedro Burt MD Medication Request (GORMAN) Clinic [address] [address] (Wo rk) Social History [...] for headache pain. Please call her at [phone]. documented in this encounter Plan of Treatment Not on filedocumented as of this encounter Visit Diagnoses Diagnosis Thoracic or lumbosacral neuritis or radi culitis, unspecified - Primary Generalized anxiety disorder documented in this encounter Care Teams Sales Operations Analyst Relationship Specialty Start Date End Date Pedro Burt MD PCP - General 10/19/02 09/12/13 [address] [address] documented as of this encounter
--- OUTSIDE RECORDS SUMMARY | 2022-05-04 21:26 | XMS_ITS | Encounter Summary ---
:1980 Author Organization [place] Address [address] [place] [address] Care Team Providers Name Role Phone Pedro Burt MD Primary Care Provider Reason for Visit Reason Onset Date Comments Refill Request 04/25/2008 vicodin Encounter Details Date Type Department Care Team Description 04/25/2008 Refill [facility] Pedro Burt MD Refill Request (vicodin) [address] [place] [phone] Social History Tobacco Use Types Packs/Day Years [...] vicodin #45 on 02/15/08 Tiara Navarrete RN EAD MAINTENANCE SPECIALIST documented in this encounter Plan of Treatment Not on filedocumented as of this encounter Visit Diagnoses Diagnosis Thoracic or lumbosacral neuritis or radi culitis, unspecified documented in this encounter Care Teams Tablet Making Machine Operator Helper Relationship Specialty Start Date End Date Pedro Burt MD PCP - General 10/19/02 09/12/13 [address] [facility] [place] [address] documented as of this encounter
--- OUTSIDE RECORDS SUMMARY | 2022-05-04 21:26 | XMS_ITS | Encounter Summary ---
:1980 Author Organization [place] Address [address] [place] [address] Care Team Providers Name Role Phone Pedro Burt MD Primary Care Provider Reason for Visit Reason Comments Patient Request PA for Concerta Encounter Details Date Type Department Care Team Description 11/22/2003 Telephone [facility] Pedro Burt MD Patient Request (PA for Clinic [place] [address] Concerta) [address] [place], [place] [phone] (Wo rk) Social History Tobacco Use Types [...] 11/22/2003 11:59 PM CDT >> KAJAL KIM [facility] Nov 22, 2003 11:54 AM >> CALL RECEIVED. Contact: pt. calling, per insurance, will not cover Concerta until clinic calls w/info. [facility] [phone]. I called # and they ok'd med for 1 year from today. Kajal Kim RN documented in this encounter Plan of Treatment Not on filedocumented as of this encounter Visit Diagnoses Not on filedocumented in this encounter Care Teams Booky Relationship Specialty Start Date End Date Pedro Burt MD PCP - General 10/19/02 09/12/13 [address] [facility] [place] [address] documented as of this encounter
--- OUTSIDE RECORDS SUMMARY | 2022-05-04 21:26 | XMS_ITS | Encounter Summary ---
:1980 Author Organization [place] Address [address] [place] [address] Care Team Providers Name Role Phone Pedro Burt MD Primary Care Provider Reason for Visit Reason Comments Bj Encounter Details Date Type Department Care Team Description 07/22/2004 Office Visit [facility] Anthony Del Castillo DEF ICIT W HYPERACT (Primary Dx); Clinic [place] MAU Rubalcava ERRONEOUS ENCOUNTER--DISREGARD [address] [place] [address] [phone] Social History Tobacco Use Types Packs/Day Years [...] Comments Blood Pressure 120/70 07/22/2004 11:45 AM COMMUNITY HEALTH NURSE SUPERVISOR Pulse - - Temperature - - Respiratory Rate - - Oxygen Saturation - - Inhaled Oxygen Concentration - - Weight 52.6 kg (116 lb) 07/22/2004 11:45 AM COMMUNITY HEALTH NURSE SUPERVISOR Height - - Body Mass Index 18.72 04/30/2003 4:00 PM COMMUNITY HEALTH NURSE SUPERVISOR documented in this encounter Patient Instructions Patient Midfyiolrbhz70/01/2005 11:45 AM COMMUNITY HEALTH NURSE SUPERVISOR You have Adult Onset Attention Deficit Disorder Here's how you can help beat this: #1 Concerta 18 mg, one pill orally daily #2 Return to clinic to see Dr. Glen Cooper in 4 weeks. [facility] NURSE SUPERVISOR documented in this encounter Progress Notes Anthony [...] . BP completed using cuff size: regular. Indai Campoverde CMA documented in this encounter Plan of Treatment Not on filedocumented as of this encounter Visit Diagnoses Diagnosis Attention deficit disorder with hyperact ivity(314.01) - Primary Attention deficit disorder with hyperact ivity ERRONEOUS ENCOUNTER--DISREGARD documented in this encounter Care Teams Sales Executive Insurance Relationship Specialty Start Date End Date Pedro Burt MD PCP - General 10/19/02 09/12/13 [address] [place] [address] documented as of this encounter
--- OUTSIDE RECORDS SUMMARY | 2022-05-04 21:26 | XMS_ITS | Encounter Summary ---
:1980 Author Organization [place] Address [address] [place] [address] Care Team Providers Name Role Phone Pedro Burt MD Primary Care Provider Reason for Visit Reason Comments Post Exam Encounter Details Date Type Department Care Team Description 04/30/2003 Office Visit [facility] [place] [facility] MD Stephen FOLLOW-UP (Pr imary Dx) [place] [address] [place] [address] Social History Tobacco Use Types [...] Comments Blood Pressure 108/80 04/30/2003 4:00 PM ELECTRONIC PAGINATION SYSTEM OPERATOR Pulse - - Temperature - - Respiratory Rate - - Oxygen Saturation - - Inhaled Oxygen Concentration - - Weight 58.1 kg (128 lb) 04/30/2003 4:00 PM ELECTRONIC PAGINATION SYSTEM OPERATOR Height 167.6 cm (5' 6) 04/30/2003 4:00 PM ELECTRONIC PAGINATION SYSTEM OPERATOR Body Mass Index 20.66 04/30/2003 4:00 PM ELECTRONIC PAGINATION SYSTEM OPERATOR documented in this encounter Progress Notes 04/30/2003 4:00 PM ELECTRONIC PAGINATION SYSTEM OPERATOR Patient is here for a 6-week checkup. [...] Primary documented in this encounter Care Teams Crown Attacher Relationship Specialty Start Date End Date Pedro Burt MD PCP - General 10/19/02 09/12/13 [address] [place] [address] documented as of this encounter
--- OUTSIDE RECORDS SUMMARY | 2022-05-04 21:26 | XMS_ITS | Encounter Summary ---
:1980 Author Organization [place] Address [address] [place] [address] Care Team Providers Name Role Phone Pedro Burt MD Primary Care Provider Encounter Details Date Type Department Care Team Description 09/15/2004 Historic Results INTERFACED REPORT Eldon Childress MD [facility] [place] [address] [facility] [address] [place], [place] [address] (Wo rk) Social History Tobacco Use Types [...] Component Value Ref Test Analysis Performed At [facility] Range Method Time Signature MCV [id number] [...] reflex to micro (09/15/2004 9:20 PM CDT) [facility] Method Time Signature Source Midstream MISYS Urine Color Urine Yellow MISYS Appearance Urine Clear MISYS Glucose Urine Negative NEG mg/dL MISYS Bilirubin Urine Negative NEG MISYS Ketones Urine Negative NEG mg/dL MISYS Specific [place] 1.025 1.001 - MISYS Urine 1.035 Blood [...] on filedocumented in this encounter Care Teams Rn Examiner Relationship Specialty Start Date End Date Pedro Burt MD PCP - General 10/19/02 09/12/13 [address] [address] documented as of this encounter
--- OUTSIDE RECORDS SUMMARY | 2022-05-04 21:26 | XMS_ITS | Encounter Summary ---
:1980 Author Organization [place] Address [address] [place] [address] Care Team Providers Name Role Phone Pedro Burt MD Primary Care Provider Reason for Visit Reason Comments Back Pain x1 year Pt slipped and fell on the ice last night Refill Request vicodin - does not seem to b e working on pain at night Encounter Details Date Type Department Care Team Description 06/25/2008 Office Visit [facility] Pedro Burt MD Thoracic or Lumbosacral Neuritis or Radi culitis, Unspecified; Clinic [address] Generalized Anxiety Disorder [address] [place] [address] [phone] Social History Tobacco Use Types Packs/Day Years [...] Comments Blood Pressure 100/62 06/25/2008 3:00 PM RADIO REPAIRER Pulse 62 06/25/2008 3:00 PM RADIO REPAIRER Temperature 36.6 ??C (97.9 ??F) 06/25/2008 3:00 PM RADIO REPAIRER Respiratory Rate - - Oxygen Saturation - - Inhaled Oxygen Concentration - - Weight 46.7 kg (103 lb) 06/25/2008 3:00 PM RADIO REPAIRER Height 165.1 cm (5' 5) 06/25/2008 3:00 PM RADIO REPAIRER Body Mass Index 17.14 06/25/2008 3:00 PM RADIO REPAIRER documented in this encounter Progress Notes Pedro [...] cymbalta (20 to 60mg) per hs orders. O REPAIRER documented in this encounter Nursing Notes 06/25/2008 [...] disorder documented in this encounter Care Teams Die Fitter Relationship Specialty Start Date End Date Pedro Burt MD PCP - General 10/19/02 09/12/13 [address] [place] [address] documented as of this encounter
--- OUTSIDE RECORDS SUMMARY | 2022-05-04 21:26 | XMS_ITS | Encounter Summary ---
:1980 Author Organization [place] Address [address] [place] [address] Care Team Providers Name Role Phone Pedro Burt MD Primary Care Provider Reason for Visit Reason Comments RECHECK med check Encounter Details Date Type Department Care Team Description 08/13/[address] [facility] [place], [facility] Gabi Delgado MD HYPERACT (Primary [address] [facility]) [place], [place] SERVICE [address] [address] [facility] [phone] [address] [place], [place] [address] (Wo rk) Social History Tobacco [...] Comments Blood Pressure 118/74 08/13/2004 11:00 AM SPECIAL AGENT IN CHARGE Pulse 76 08/13/2004 11:00 AM SPECIAL AGENT IN CHARGE Temperature - - Respiratory Rate - - Oxygen Saturation - - Inhaled Oxygen Concentration - - Weight 51.3 kg (113 lb) 08/13/2004 11:00 AM SPECIAL AGENT IN CHARGE Height 166.4 cm (5' 5.5) 08/13/2004 11:00 AM SPECIAL AGENT IN CHARGE Body Mass Index 18.52 08/13/2004 11:00 AM SPECIAL AGENT IN CHARGE documented in this encounter Progress Notes Glen [...] or call in 2 weeks for recheck. IAL AGENT IN CHARGE documented in this encounter Nursing Notes 08/13/2004 [...] ivity documented in this encounter Care Teams Stripping Machine Operator Relationship Specialty Start Date End Date Pedro Burt MD PCP - General 10/19/02 09/12/13 [address] [place] [address] documented as of this encounter
--- OUTSIDE RECORDS SUMMARY | 2022-05-04 21:26 | XMS_ITS | Encounter Summary ---
:1980 Author Organization [place] Address [address] [place] [address] Care Team Providers Name Role Phone Pedro Burt MD Primary Care Provider Reason for Visit Reason Onset Date Comments Refill Request 08/21/2008 Vicodin Encounter Details Date Type Department Care Team Description 08/21/2008 Refill [facility] Pedro Burt MD Refill Request (Vicodin) Clinic [address] [address] [phone] Social History Tobacco Use Types Packs/Day Years [...] Lumbosacral Neuritis Last filled: 07/25/2008 Janel Tavera CHRONIC CARE NURSE documented in this encounter Plan of Treatment Not on filedocumented as of this encounter Visit Diagnoses Diagnosis Thoracic or lumbosacral neuritis or radi culitis, unspecified documented in this encounter Care Teams Structural Architect Relationship Specialty Start Date End Date Pedro Burt MD PCP - General 10/19/02 09/12/13 [address] [address] documented as of this encounter
--- OUTSIDE RECORDS SUMMARY | 2022-05-04 21:26 | XMS_ITS | Encounter Summary ---
:1980 Author Organization [place] Address [address] [place] [address] Care Team Providers Name Role Phone Pedro Burt MD Primary Care Provider Reason for Visit Reason Onset Date Comments Medication Request 03/13/2008 Requesting Tazorac Derm Problem 03/13/2008 Acne and folliculiti s Encounter Details Date Type Department Care Team Description 03/13/2008 [facility] Pedro Burt MD Medication Request Clinic [address] (Requesting Tazorac ); [address] [place] [address] [place] [facility] Problem (Acne and [place], [place] folliculi tis) [address] [phone] (Wo rk) Social History Tobacco Use Types [...] and she would check with her pharmacy [facility] afternoon Only need to call if problems [phone] Jeanine Freedman RN documented in this encounter Plan of Treatment Not on filedocumented as of this encounter Visit Diagnoses Diagnosis Acne - Primary Other acne documented in this encounter Care Teams Prosthetic Dentist Relationship Specialty Start Date End Date Pedro Burt MD PCP - General 10/19/02 09/12/13 [address] [address] documented as of this encounter
--- OUTSIDE RECORDS SUMMARY | 2022-05-04 21:26 | XMS_ITS | Encounter Summary ---
:1980 Author Organization [place] Address [address] [place] [address] Care Team Providers Name Role Phone Pedro Burt MD Primary Care Provider Encounter Details Date Type Department Care Team Description 09/15/2004 Emergency room Yuniel Childress MD EMERGENCY PHYSIC IADEXTER [place] [address] [facility] [address] [place] [address] (Wo rk) Social History Tobacco Use Types [...] [id number] _ YUNIEL CHILDRESS MD [place]: Document: [id number] [place], [place] Name: MR#: DELORES JEWELL Acsencion -25 EMERGENCY ROOM ENCOUNTER Page 2 of 2 LCN: CATARINO DSC: 09/15/2004 [place], [place] Name: MR#: JEWELL ESTRELLA [id number] : Admit Date: Account #: 1980 09/15/2004 [id number] Doctor: YUNIEL CHILDRESS MD EMERGENCY ROOM ENCOUNTER Page 1 of 2 documented in this encounter Plan of Treatment Not on filedocumented as of this encounter Visit Diagnoses Not on filedocumented in this encounter Care Teams Manager Configuration Relationship Specialty Start Date End Date Pedro Burt MD PCP - General 10/19/02 09/12/13 [address] [address] documented as of this encounter
--- OUTSIDE RECORDS SUMMARY | 2022-05-04 21:26 | XMS_ITS | Encounter Summary ---
:1980 Author Organization [place] Address [address] [place] [address] Care Team Providers Name Role Phone Pedro Burt MD Primary Care Provider Reason for Visit Reason Comments Chest Pain L side x 2 months Encounter Details Date Type Department Care Team Description 10/10/2003 Office Visit [facility] Pedro Burt MD INITIATE CONTRACEPT NEC; Clinic [place] [address] ESOPHAGEAL REFLUX [address] [place] [address] Social History Tobacco Use [...] cover the routine use of these drugs terminal superintendent due to expense. Further recommendations to her: [...] 2 months. BP cuff size: large [place] uHston MA documented in this encounter Plan of Treatment Not on filedocumented as of this encounter Visit Diagnoses Diagnosis General counseling for initiation of oth er contraceptive measures Esophageal reflux documented in this encounter Care Teams Boiler Operator Helper Relationship Specialty Start Date End Date Pedro Burt MD PCP - General 10/19/02 09/12/13 [address] [address] documented as of this encounter
--- OUTSIDE RECORDS SUMMARY | 2022-05-04 21:26 | XMS_ITS | Encounter Summary ---
:1980 Author Organization [place] Address [address] [place] [address] Care Team Providers Name Role Phone Oliverio Burt MD Primary Care Provider Reason for Visit Reason Comments Patient Inquiry CL ritalin rx, nexium not he lping Encounter Details Date Type Department Care Team Description 11/13/2003 Telephone [facility] Oliverio Burt MD Patient Inquiry (CL Clinic [place] [address] ritalin rx, nexium not [address] [facility]) [place] [address] (Wo rk) Social History [...] 4:33 PM Regarding: Li-rx rf ritalin--call when ready----[phone]--sec--nexium is not helping chest pain documented in this encounter Plan of Treatment Not on filedocumented as of this encounter Visit Diagnoses Not on filedocumented in this encounter Care Teams Religious Education Coordinator Relationship Specialty Start Date End Date Oliverio Burt MD PCP - General 10/19/02 09/12/13 [address] [place] [address] documented as of this encounter
--- OUTSIDE RECORDS SUMMARY | 2022-05-04 21:26 | XMS_ITS | Encounter Summary ---
:1980 Author Organization [place] Address [address] [place] [address] Care Team Providers Name Role Phone Pedro Burt MD Primary Care Provider Reason for Visit Reason Comments Refill Request Encounter Details Date Type Department Care Team Description 11/22/2003 Refill [facility] Vickie Burt MD Refill Request [place] [address] [place], [place] [address] [address] [place] [address] [place], [place] [address] [phone] Social History Tobacco Use Types Packs/Day Years [...] on filedocumented in this encounter Care Teams Maintenance Truck Driver Relationship Specialty Start Date End Date Pedro Burt MD PCP - General 10/19/02 09/12/13 [address] [place] [address] documented as of this encounter
--- OUTSIDE RECORDS SUMMARY | 2022-05-04 21:26 | XMS_ITS | Encounter Summary ---
:1980 Author Organization [place] Address [address] [place] [address] Care Team Providers Name Role Phone Pedro Burt MD Primary Care Provider Reason for Referral - Closed Specialty Diagnoses / Procedures Referred By Contact Refer red To Contact Diagnoses Abdominal pain, generalized Pedro Burt MD [address] [place] [address] Referral ID Status Reason Start Date Expiration Date Visits Requ ested Visits Authorized [id number] Closed 11/14/2003 05/23/2011 1 1 Reason for Visit Reason Comments Refill Request Encounter Details Date Type Department Care Team Description 11/14/2003 Office Visit [facility] Pedro Burt MD ATTN DEFICIT NONHYPERACT; Clinic [place] [address] ABDOMINAL PAIN GENERALIZED [address] [place] [address] [phone] Social History Tobacco Use Types Packs/Day Years [...] Body Mass Index 18.08 04/30/2003 4:00 PM BUTADIENE CONVERTOR OPERATOR documented in this encounter Progress Notes 11/14/2003 2:45 PM CDT SUBJECTIVE: Jewell [place] 23 year old female presents for ADD diagnosed by psychiatyr as a child. Griselda colvin is now a mother, who will be going to [employer] school. She is accompnaied by her mother [...] reactions, pt accepts prescription for CONCERTA per [employer] orders. F/U in 3 weeks fo r reevaluation. 2- Epigastric pain. Pt accepts referral to [facility] for UGI Endoscopy. documented in this [...] generalized documented in this encounter Care Teams Heat Treating Operator Relationship Specialty Start Date End Date Pedro Burt MD PCP - General 10/19/02 09/12/13 [address] [place] [address] documented as of this encounter
--- OUTSIDE RECORDS SUMMARY | 2022-05-04 21:26 | XMS_ITS | Encounter Summary ---
:1980 Author Organization [place] Address [facility]0 [facility] [place] [address] Care Team Providers Name Role Phone Pedro Burt MD Primary Care Provider Encounter Details Date Type Department Care Team Description 07/22/[address] [facility] [place], AT [facility] Gabi Delgado MD [facility]ACT [facility] [id number] [facility] [place], [place] SERVICE [phone] [address] [facility] [phone] 4131 [place], [place] [address] (Wo rk) Social History Tobacco Use Types [...] to effect if needed. Glen Cooper MD [facility] GAUGER documented in this encounter Plan of Treatment Not on filedocumented as of this encounter Visit Diagnoses Diagnosis Attention deficit disorder with hyperact ivity(314.01) - Primary Attention deficit disorder with hyperact ivity documented in this encounter Care Teams Bread Slicer Machine Relationship Specialty Start Date End Date Pedro Burt MD PCP - General 10/19/02 09/12/13 [address] [id number] documented as of this encounter
--- OUTSIDE RECORDS SUMMARY | 2022-05-04 21:26 | XMS_ITS | Encounter Summary ---
:1980 Author Organization [place] Address [address] [place] [address] Care Team Providers Name Role Phone Pedro Burt MD Primary Care Provider Reason for Visit Reason Onset Date Comments Medication Request 06/25/2008 pt seen today- askin g for rx ensure to be faxed in Encounter Details Date Type Department Care Team Description 06/25/2008 Telephone [facility] Pedro Burt MD Medication Request (pt Clinic [place] [address] Cook seen today- asking for [address] [place] [address] rx ensure to be faxed [facility] [place]) [phone] [id number] (Wo rk) Social History Tobacco Use Types [...] rx to [facility]. Thanks. Jesús Pacheco R.N.. S PLATER documented in this encounter Plan of Treatment Not on filedocumented as of this encounter Visit Diagnoses Diagnosis Weight loss, severe - Primary Loss of weight documented in this encounter Care Teams Line Out Man Relationship Specialty Start Date End Date Pedro Burt MD PCP - General 10/19/02 09/12/13 [address] [id number] documented as of this encounter
--- OUTSIDE RECORDS SUMMARY | 2022-05-04 21:27 | XMS_ITS | Encounter Summary ---
:1980 Author Organization [place] Address [address] [place] [address] Care Team Providers Name Role Phone Pedro Burt MD Primary Care Provider Encounter Details Date Type Department Care Team Description 03/15/2003 Orders Only [place] Eag an Shravan Park DIAGNOSIS NOT YET 1440 [facility] MD Stephen DEFINED (Primary Dx) ZHENG [...] Priority Date/Time Associated Diagnosis Comme nts SCANNED [facility]. LAB RESULTS Routine 03/15/2003 DIAGNOSIS NOT Y [...] documented in this encounter Care Teams Power Lineworker Relationship Specialty Start Date End Date Pedro Burt MD PCP - General 10/19/02 09/12/13 [address] [id number] documented as of this encounter
--- OUTSIDE RECORDS SUMMARY | 2022-05-04 21:27 | XMS_ITS | Encounter Summary ---
:1980 Author Organization [place] Address [address] [place] [address] Care Team Providers Name Role Phone Pedro Burt MD Primary Care Provider Reason for Visit Reason Comments Care thick, green mucous discharg e Encounter Details Date Type Department Care Team Description 03/15/[address] [facility] Shravan Park Pre yohan Care (Maik polk MD green mucous discharge) [address] [address] Social History Tobacco Use Types [...] Per MD - pt to go to [facility] L&D to be checked. [facility] notified and records faxed. Ptinstructed to go to [facility] now. Zeus Joy RN documented in this encounter Plan of Treatment Not on filedocumented as of this encounter Visit Diagnoses Not on filedocumented in this encounter Care Teams Jack Tamp Operator Relationship Specialty Start Date End Date Pedro Burt MD PCP - General 10/19/02 09/12/13 [address] [id number] documented as of this encounter
--- OUTSIDE RECORDS SUMMARY | 2022-05-04 21:27 | XMS_ITS | Encounter Summary ---
:1980 Author Organization [place] Address [address] [place] [address] Care Team Providers Name Role Phone Pedro Burt MD Primary Care Provider Reason for Visit Reason Comments Care Encounter Details Date Type Department Care Team Description 02/19/2003 Office Visit [facility] Shravan Park SUPERVIS [address] [facility] MD Stephen PREG (Primary Dx) [place] [address] [place] [address] Social History Tobacco Use Types [...] Primary documented in this encounter Care Teams Head Knitting Machine Fixer Relationship Specialty Start Date End Date Pedro Burt MD PCP - General 10/19/02 09/12/13 [address] [id number] documented as of this encounter
--- OUTSIDE RECORDS SUMMARY | 2022-05-04 21:27 | XMS_ITS | Encounter Summary ---
:1980 Author Organization [place] Address [address] [place] [address] Care Team Providers Name Role Phone Pedro Burt MD Primary Care Provider Encounter Details Date Type Department Care Team Description 04/05/2003 Orders Only [facility] SUP ERVIS NORMAL 1ST PREG; [facility] SCREENING NEC [address] [phone] Social History Tobacco Use [...] Procedure Name Priority Date/Time Associated Diagnosis Comme [facility] SONO PREG COMPLETE Routine 04/05/2003 Supervis Normal [...] (18+) Referring Provider: Concepcion Park MD Clinic: [facility] Disk: 189 INDICATIONS FOR ULTRASOUND: Present Conditions: third tr-screen (EFW, Bpp, JUANITA, SD ratio ) Small for gestation (SGA). CLINICAL INFORMATION LMP: [id number] ??sure EDC: 47Kdf09 ??EGA: 38.0wks Previous US: Yes Location: [place] ? EDC: [id number] ?? correspond ?? MEASUREMENTS BPD: 9.0cm ??MA: [...] screening documented in this encounter Care Teams Senior Java Developer Relationship Specialty Start Date End Date Pedro Burt MD PCP - General 10/19/02 09/12/13 [address] [id number] documented as of this encounter
--- OUTSIDE RECORDS SUMMARY | 2022-05-04 21:27 | XMS_ITS | Encounter Summary ---
:1980 Author Organization [place] Address [address] [place] [address] Care Team Providers Name Role Phone Pedro Burt MD Primary Care Provider Reason for Visit Reason Comments Care Encounter Details Date Type Department Care Team Description 04/05/2003 Office Visit [facility] Shravan Park SUPERVIS N [address] Maik Mitchell MD PREG (Martha Koch) [place] [address] [address] Social History Tobacco Use Types [...] Comments Blood Pressure 130/70 04/05/2003 1:30 PM CHIEF HUMAN RESOURCES OFFICER Pulse - - Temperature - - Respiratory Rate - - Oxygen Saturation - - Inhaled Oxygen Concentration - - Weight 65.7 kg (144 lb 12 oz) 04/05/2003 1:30 PM CHIEF HUMAN RESOURCES OFFICER Height - - Body Mass Index 23.36 10/30/2002 2:00 PM CDT documented in this encounter Progress Notes Shravan Park - 01/30/2010 6:19 PM CDT Doing well. F HUMAN RESOURCES OFFICER documented in this encounter Plan of Treatment Not on filedocumented as of this encounter Visit Diagnoses Diagnosis Supervision of normal first - Primary documented in this encounter Care Teams Switchbox Assembler Relationship Specialty Start Date End Date Pedro Burt MD PCP - General 10/19/02 09/12/13 [address] [id number] documented as of this encounter
--- OUTSIDE RECORDS SUMMARY | 2022-05-04 21:27 | XMS_ITS | Encounter Summary ---
:1980 Author Organization [place] Address [address] [place] [address] Care Team Providers Name Role Phone Pedro Burt MD Primary Care Provider Encounter Details Date Type Department Care Team Description 03/16/2003 Results Only [facility] Women's ParkShravan MD [address] [place] [address] Social History Tobacco Use [...] Procedure Name Priority Date/Time Associated Diagnosis Comme [facility] OB LIMITED, 1 Routine 03/16/2003 11:32 AM R esults for this OR MORE FETUSES CDT procedure ar e in the results section. documented in this encounter Results SONO LTD IN DELIV ROOM (03/16/2003 11:32 AM CDT) [facility] Method Time Signature Radiology OB WORKSHEET/SECOND [...] on filedocumented in this encounter Care Teams Rotary Drier Relationship Specialty Start Date End Date Pedro Burt MD PCP - General 10/19/02 09/12/13 [address] [id number] documented as of this encounter
--- OUTSIDE RECORDS SUMMARY | 2022-05-04 21:27 | XMS_ITS | Encounter Summary ---
:1980 Author Organization [place] Address [address] [place] [address] Care Team Providers Name Role Phone Pedro Burt MD Primary Care Provider Reason for Visit Reason Comments Care Encounter Details Date Type Department Care Team Description 03/19/2003 Office Visit [facility] Shravan Park SUPERVIS O THER NORMAL [facility] MD Stephen PREG (Primary Dx) [place] [address] [place] [address] Social History Tobacco Use Types [...] Comments Blood Pressure 110/64 03/19/2003 3:45 PM KEY WORKER Pulse - - Temperature - - Respiratory Rate - - Oxygen Saturation - - Inhaled Oxygen Concentration - - Weight 64.4 kg (142 lb) 03/19/2003 3:45 PM KEY WORKER Height - - Body Mass Index 22.92 10/30/2002 2:00 PM CDT documented in this encounter Progress Notes Shravan Park - 01/30/2010 6:19 PM CDT Group B strep done. WORKER documented in this encounter Plan of Treatment Not on filedocumented as of this encounter Procedures Procedure Name Priority Date/Time Associated Diagnosis Comme nts HCL CULTURE, GROUP Routine 03/19/2003 4:49 PM Supervis Other R esults for this B STREP KEY WORKER Normal Preg procedure are i n the results section. documented in this encounter Results GROUP B STREP VAG/RECTAL (03/19/2003 4:49 PM KEY WORKER) Component Value Ref Test Analysis Performed At [facility] Range Method Time Signature Specimen Vagina [facility] LAB Culture Micro No beta [facility] hemolytic [facility] Streptococcus [facility] Group B isolated Report status FINAL [id number] [facility] LAB Specimen Anatomical Collection Method Collection Time Receive d Time (Source) Location / / Volume Laterality 03/19/2003 4:49 PM 3 4:54 KEY WORKER PM KEY WORKER Shravan Park MD LABORATORY Performing Organization Address City/State/ZIP Code Phon e Number [facility] [address] [address] [facility] documented in this encounter Visit Diagnoses Diagnosis Supervision of other normal - Primary documented in this encounter Care Teams Press Operator Printing Relationship Specialty Start Date End Date Pedro Burt MD PCP - General 10/19/02 09/12/13 [address] [id number] documented as of this encounter
--- OUTSIDE RECORDS SUMMARY | 2022-05-04 21:27 | XMS_ITS | Encounter Summary ---
:1980 Author Organization [place] Address [address] [place] [address] Care Team Providers Name Role Phone Pedro Burt MD Primary Care Provider Reason for Visit Reason Comments Care Encounter Details Date Type Department Care Team Description 02/05/2003 Office Visit [facility] Shravan Park SUPERVIS O THER NORMAL PREG; [facility] MD Stephen URINARY FREQU [place] [address] [place] [address] Social History Tobacco Use Types [...] PM CDT) athologist Signature Hemoglobin 11.6 g/dL [facility] Specimen Anatomical Collection Method Collection Time Receive d Time (Source) Location / / Volume Laterality 02/05/2003 4:15 PM 3 4:20 CDT PM CDT Shravan Park MD LABORATORY Performing Organization Address City/State/ZIP Code Phon e Number [facility] [address] [place], [place] [address] [address] [facility] (ABNORMAL) UA WITH MICRO (02/05/2003 4:15 PM CDT) [facility] gist Method Time Signature Color Urine Yellow [facility] Appearance Urine Clear [facility] Glucose Urine Negative NEG mg/dL [facility] Bilirubin Urine Negative NEG [facility] Ketones Urine Trace (A) NEG mg/dL [facility] Specific [place] 1.025 1.001 - [place] Urine 1.[address] [facility] pH Urine 6.5 5.0 - 7.[address] [place] [address] [facility] Protein Albumin Negative NEG mg/dL [facility] Urobilinogen 0.2 0.2 - 1.0 [place] Urine EU/dL [facility] Nitrite Urine Negative NEG [facility] Blood Urine Small (A) NEG [facility] Leukocyte Negative NEG [place] Esterase Urine [facility] Source Midstream [place] Urine [facility] WBC Urine 2-5 0 - 2 [place] Abnorm Result /HPF [facility] RBC Urine 2-5 0 - 2 [place] Abnorm Result /HPF [facility] Squamous EPI Moderate (A) FEW /LPF [facility] Bacteria Urine Moderate (A) NEG /HPF [facility] Mucous Urine Present (A) NEG /LPF [facility] Specimen Anatomical Collection Method Collection Time Receive d Time (Source) Location / / Volume Laterality 02/05/2003 4:15 PM 3 4:20 CDT PM CDT Shravan Park MD LABORATORY Performing Organization Address City/[facility]/ZIP Code Phon e Number [place] [address], [place] [address] [address] [facility] GLUCOSE; 1 HR POST (02/05/2003 4:15 PM CDT) P athologist Signature Glu Gest Screen 124 60 - 140 [place] 1hr 50g mg/dL [facility] Specimen Anatomical Collection Method Collection Time Receive d Time (Source) Location / / Volume Laterality 02/05/2003 4:15 PM 3 4:20 CDT PM CDT Shravan Park MD LABORATORY Performing Organization Address City/[facility] Phon e Number [place] [address] [address] [place], [place] [address] [address] [facility] documented in this encounter Visit Diagnoses Diagnosis Supervision of other normal Urinary frequency documented in this encounter Care Teams Operator Automated Process Relationship Specialty Start Date End Date Pedro Burt MD PCP - General 10/19/02 09/12/13 [address] [id number] documented as of this encounter
--- OUTSIDE RECORDS SUMMARY | 2022-05-04 21:27 | XMS_ITS | Encounter Summary ---
:1980 Author Organization [place] Address [address] [place] [address] Care Team Providers Name Role Phone Pedro Burt MD Primary Care Provider Encounter Details Date Type Department Care Team Description 03/06/2003 Results Only [facility] Shravan Park SUPERVIS O THER NORMAL [facility] [place] MD Stephen PREG (Martha evans Dx) [place] [address] [address] Social History Tobacco Use Types [...] Component Value Ref Test Analysis Performed At [facility] Range Method Time Signature Radiology OB WORKSHEET/SECOND [...] Body Movements: Score: 2 Tone: Score: 2 JUANITA([id number]) 7.6 cm Score: 2 Total: 8/8 (borderline [...] Primary documented in this encounter Care Teams Liquid Sugar Fortifier Relationship Specialty Start Date End Date Pedro Burt MD PCP - General 10/19/02 09/12/13 [address] [id number] documented as of this encounter
--- OUTSIDE RECORDS SUMMARY | 2022-05-04 21:27 | XMS_ITS | Encounter Summary ---
:1980 Author Organization [place] Address [address] [place] [address] Care Team Providers Name Role Phone Pedro Burt MD Primary Care Provider Encounter Details Date Type Department Care Team Description 03/14/2003 Orders Only [facility] SUP ERVIS NORMAL 1ST PREG; [facility] POOR GRTH-ANTEPART [address] [phone] Social History Tobacco Use [...] Procedure Name Priority Date/Time Associated Diagnosis Comme [facility] SONO PREG COMPLETE Routine 03/14/2003 [...] (18+) Referring Provider: Concepcion Park MD Clinic: [facility] Disk: 186 INDICATIONS FOR ULTRASOUND: Present Conditions: third tr-screen (EFW, Bpp, JUANITA, SD ratio ) Small for gestation (SGA). CLINICAL INFORMATION LMP: [id number] ??sure EDC: [id number] ??EGA: 34.9wks Previous US: yes Location: [place] ? EDC: [id number] ?? correspond ?? MEASUREMENTS BPD: 8.5cm ??MA: [...] complication documented in this encounter Care Teams Personal Care Attendant Relationship Specialty Start Date End Date Pedro Burt MD PCP - General 10/19/02 09/12/13 [address] [id number] documented as of this encounter
--- OUTSIDE RECORDS SUMMARY | 2022-05-04 21:27 | XMS_ITS | Encounter Summary ---
:1980 Author Organization [place] Address [address] [place] [address] Care Team Providers Name Role Phone Pedro Burt MD Primary Care Provider Encounter Details Date Type Department Care Team Description 04/02/2003 Orders Only [facility] Shravan Park DIAGNOSIS NOT YET [facility] MD Stephen DEFINED (Prim darryl Dx) [address] [place] [phone] Social History Tobacco Use Types Packs/Day Years [...] Priority Date/Time Associated Diagnosis Comme nts SCANNED [facility]. LAB RESULTS Routine 04/02/2003 DIAGNOSIS NOT Y ET DEFINED documented in this encounter Results SCANNED [facility]. LAB RESULTS (04/02/2003) Specimen (Source) Anatomical Location Collection Method / Collectio n Time Received Time / Laterality Volume 04/02/2003 Narrative This result has an attachment that is no t available. Shravan Park MD LABORATORY documented in this encounter Visit Diagnoses Diagnosis DIAGNOSIS NOT YET DEFINED - Primary documented in this encounter Care Teams Linux System Engineer Relationship Specialty Start Date End Date Pedro Burt MD PCP - General 10/19/02 09/12/13 [address] [place] [address] documented as of this encounter
--- OUTSIDE RECORDS SUMMARY | 2022-05-04 21:27 | XMS_ITS | Encounter Summary ---
:1980 Author Organization [place] Address [address] [place] [address] Care Team Providers Name Role Phone Pedro Burt MD Primary Care Provider Reason for Visit Reason Comments Care Encounter Details Date Type Department Care Team Description 03/26/2003 Office Visit [facility] Shravan Park SUPERVIS N [address] [facility] MD Stephen PREG (Primary Dx) [place] [address] [place] [address] Social History Tobacco Use Types [...] Comments Blood Pressure 104/64 03/26/2003 4:00 PM PRESIDING JUDGE Pulse - - Temperature - - Respiratory Rate - - Oxygen Saturation - - Inhaled Oxygen Concentration - - Weight 64.2 kg (141 lb 8 oz) 03/26/2003 4:00 PM PRESIDING JUDGE Height - - Body Mass Index 22.84 10/30/2002 2:00 PM CDT documented in this encounter Progress Notes Shravan Park - 01/30/2010 6:19 PM CDT Doing well. IDING JUDGE documented in this encounter Nursing Notes 03/26/2003 [...] Primary documented in this encounter Care Teams Networking Specialist Relationship Specialty Start Date End Date Pedro Burt MD PCP - General 10/19/02 09/12/13 [address] [id number] documented as of this encounter
--- OUTSIDE RECORDS SUMMARY | 2022-05-04 21:27 | XMS_ITS | Encounter Summary ---
:1980 Author Organization [place] Address [address] [place] [address] Care Team Providers Name Role Phone Pedro Burt MD Primary Care Provider Encounter Details Date Type Department Care Team Description 02/20/2003 Orders Only [facility] SUP ERVIS NORMAL 1ST PREG; [facility] SCREENING NEC [address] [phone] Social History Tobacco [...] Procedure Name Priority Date/Time Associated Diagnosis Comme [facility] SONO PREG COMPLETE Routine 02/20/2003 Supervis [...] (18+) Referring Provider: Shravan Park MD Clinic: [facility] Disk: 183 INDICATIONS FOR ULTRASOUND: Present Conditions: Small for gestation (SGA) CLINICAL INFORMATION LMP: [id number] ??sure EDC: [id number] ??EGA: 31.7wks Previous US: yes Location: [place] ? EDC: [id number] ?correspond ?? MEASUREMENTSm BPD: 7.7cm ??MA: 30w5d [...] screening documented in this encounter Care Teams Internet Cafe Manager Relationship Specialty Start Date End Date Pedro Burt MD PCP - General 10/19/02 09/12/13 [address] [id number] documented as of this encounter
--- OUTSIDE RECORDS SUMMARY | 2022-05-04 21:27 | XMS_ITS | Encounter Summary ---
:1980 Author Organization [place] Address [address] [place] [address] Care Team Providers Name Role Phone Pedro Burt MD Primary Care Provider Reason for Visit Reason Comments Care Encounter Details Date Type Department Care Team Description 03/05/2003 Office Visit [facility] Shravan Park SUPERVIS N [address] [facility] MD Stephen PREG (Primary Dx) [place] [address] [place] [address] Social History Tobacco Use Types [...] Primary documented in this encounter Care Teams Youth Worker Relationship Specialty Start Date End Date Pedro Burt MD PCP - General 10/19/02 09/12/13 [address] [id number] documented as of this encounter
--- OUTSIDE RECORDS SUMMARY | 2022-05-04 21:27 | XMS_ITS | Encounter Summary ---
:1980 Author Organization [place] Address [address] [place] [address] Care Team Providers Name Role Phone Pedro Burt MD Primary Care Provider Reason for Visit Reason Comments Anxiety Encounter Details Date Type Department Care Team Description 03/14/2003 Office Visit [facility] [place], ANXIETY ST ATE NOS (Primary Dx); [facility] Gregorio Moore MD DEPRESSIVE DISORDER NEC [address] [place] [address] [place] [address] [address] [place] [address] Social History Tobacco Use Types [...] athologist Signature TSH 0.81 0.4 - 5.0 [facility] mU/L CLINIC LAB Specimen Anatomical Collection Method Collection Time Receive d Time (Source) Location / / Volume Laterality 03/14/2003 10:51 03/14/2003 AM CDT 10:56 AM CDT Gregorio Muñoz MD LABORATORY Performing Organization Address City/State/ZIP Code Phon e Number [facility] [address] [place] [address] [facility] documented in this encounter Visit Diagnoses Diagnosis Anxiety state, unspecified - Primary Depressive disorder, not elsewhere class ified documented in this encounter Care Teams Planner Intern Relationship Specialty Start Date End Date Pedro Burt MD PCP - General 10/19/02 09/12/13 [address] [id number] documented as of this encounter
--- OUTSIDE RECORDS SUMMARY | 2022-05-04 21:28 | XMS_ITS | Encounter Summary ---
:1980 Author Organization [place] Address [address] [place] [address] Care Team Providers Name Role Phone Doctor, None MD Primary Care Provider Unavailable Reason for Visit Reason Comments Care Encounter Details Date Type Department Care Team Description 10/17/2002 Allied Health/Nurse Health [facility] Care Visit [place] [address] [place] [address] Social History Tobacco Use [...] At Patho logist Time Signature ABO/Rh(D) B [facility] ABO/Rh(D) Pos [facility] Antibody Neg [place] Screen [facility] Specimen 10/20/2002 [place] Expires [facility] Specimen Anatomical Collection Method Collection Time Receive d Time (Source) Location / / Volume Laterality 10/17/2002 11:50 10/17/2002 AM CDT 11:55 AM CDT Shravan Park MD LABORATORY Performing Organization Address City/State/ZIP Code Phon e Number M [facility] [address] [address] [phone] [facility] CULTURE, URINE (10/17/2002 11:48 AM CDT) Patholo gist Method Time Signature Specimen Midstream [place] Description Urine [facility] Culture Micro No growth [facility] Report status FINAL [place] [id number] [facility] Specimen Anatomical Collection Method Collection Time Receive d Time (Source) Location / / Volume Laterality 10/17/2002 11:48 10/17/2002 AM CDT 11:53 AM CDT Shravan Park MD LABORATORY Performing Organization Address City/State/ZIP Code Phon e Number [facility] [address] [address] [facility] HIV-1/HIV-2, SCREEN (10/17/2002 11:48 AM CDT) Analysis Performed At Patho logist Time Signature HIV 1&2 Negative NEG [facility] Antibody [facility] Specimen Anatomical Collection Method Collection Time Receive d Time (Source) Location / / Volume Laterality 10/17/2002 11:48 10/17/2002 AM CDT 11:53 AM CDT Shravan Park MD LABORATORY Performing Organization Address City/State/ZIP Code Phon e Number [facility] [address] [place], [place] [phone] [place] [address] LABS RPR SCREEN W/REFLEX TO TITER (10/17/2002 11:48 AM CDT) Analysis Performed At Patho logist Time Signature Rapid Plasma Negative NEG [facility] Reagin [facility] Specimen Anatomical Collection Method Collection Time Receive d Time (Source) Location / / Volume Laterality 10/17/2002 11:48 10/17/2002 AM CDT 11:53 AM CDT Shravan Park MD LABORATORY Performing Organization Address City/State/ZIP Code Phon e Number [facility] [address] [place], [place] [phone] [place] [address] LABS RUBELLA AB IGG (10/17/2002 11:48 AM CDT) P athologist Signature Rubella PITER 66 IU/mL [facility] Comment: Interpretation: Positive, Immun e Specimen Anatomical Collection Method Collection Time Receive d Time (Source) Location / / Volume Laterality 10/17/2002 11:48 10/17/2002 AM CDT 11:53 AM CDT Shravan Park MD LABORATORY Performing Organization Address [facility] Phon e Number [facility] [address] LABS HEP B SURFACE ANTIGEN (10/17/2002 11:48 AM CDT) Analysis Performed At Patho [facility] Time Signature Hep B Surface Negative NEG [facility] LABS Specimen Anatomical Collection Method Collection Time Receive d Time (Source) Location / / Volume Laterality 10/17/2002 11:48 10/17/2002 AM CDT 11:53 AM CDT Shravan Park MD LABORATORY Performing Organization Address [facility] Code Phon e Number [address] LABS (ABNORMAL) CBC WITH PLATELETS (10/17/2002 11:48 AM CDT) Analysis Performed At Patho logis Time Signature WBC 6.0 4.0 - 11.0 [place] 10e9/L [facility] RBC Count 4.45 3.8 - 5.2 [place] 10e12/L [facility] Hemoglobin 11.6 (L) 11.7 - [facility] 15.7 g/dL [facility] Hematocrit 36.6 35.0 - [facility] 47.0 % [facility] MCV 82 78 - 100 [place] [facility] MCH 26.2 (L) 26.5 - [facility] 33.0 pg [facility] MCHC 31.8 (L) 32.0 - [facility] 36.0 g/dL [facility] RDW 16.7 (H) 10.0 - [facility] 15.0 % [facility] Platelet Count 260 150 - 450 [place] 10e9/L [facility] Comment: Results confirmed by repeat mahendra t Specimen Anatomical Collection Method Collection Time Receive d Time (Source) Location / / Volume Laterality 10/17/2002 11:48 10/17/2002 AM CDT 11:53 AM CDT Shravan Park MD LABORATORY Performing Organization Address City/State/ZIP Code Phon e Number [facility] [address] [place], [place] [address] [address] [facility] HCG, URINE, NURSE BACKOFFICE (10/17/2002) P athologist Signature HCG Qual Urine positive Specimen (Source) Anatomical Location Collection Method / Collectio n Time Received Time / Laterality Volume Urine specimen 10/17/2002 (specimen) Shravan Park MD LABORATORY documented in this encounter Visit Diagnoses Diagnosis Supervision of other normal - Primary documented in this encounter Care Teams Antisqueak Filler Relationship Specialty Start Date End Date Doctor, None, PCP - General 07/09/01 10/18/02 documented as of this encounter
--- OUTSIDE RECORDS SUMMARY | 2022-05-04 21:28 | XMS_ITS | Encounter Summary ---
:1980 Author Organization [place] Address [address] [place] [address] Care Team Providers Name Role Phone Pedro Burt MD Primary Care Provider Reason for Visit Reason Comments Care Encounter Details Date Type Department Care Team Description 01/05/[address] [facility] Shravan Park SUPERVIS N [address] [facility] MD Stephen PREG (Primary Dx) [place] [address] [place] [address] Social History Tobacco Use Types [...] documented in this encounter Care Teams Machine Erector Relationship Specialty Start Date End Date Pedro Burt MD PCP - General 10/19/02 09/12/13 [address] [id number] documented as of this encounter
--- OUTSIDE RECORDS SUMMARY | 2022-05-04 21:28 | XMS_ITS | Encounter Summary ---
:1980 Author Organization [place] Address [address] [place] [address] Care Team Providers Name Role Phone Pedro Burt MD Primary Care Provider Encounter Details Date Type Department Care Team Description 11/27/2002 Orders Only [facility] SUP ERVIS NORMAL 1ST PREG; [facility]CREENING NEC [address] [phone] Social History Tobacco Use [...] Procedure Name Priority Date/Time Associated Diagnosis Comme [facility] SONO PREG COMPLETE Routine 11/27/2002 Supervis Normal [...] (18+) Referring Provider: Shravan Park MD Clinic: [facility] Disk: 170 INDICATIONS FOR ULTRASOUND: Present Conditions: Initial Survey (18-26weeks) CLINICAL INFORMATION LMP: [id number] ??sure EDC: 94Tfe46 ??EGA: 19.6wks Previous US: no ?? MEASUREMENTS BPD: 4.4cm ??MA: 19w1d ?Cer: 1 .9cm ??MA: 19w1d HC: 16.3cm ??MA: 19w0d ?AC: 12 .8cm ??MA: 18w3d FL: 3.0cm ?? MA: 19w3d ?Hum: 2 .9cm ??MA: 19w1d FL/AC:na% ?? FL/BPD:na% ?? HC/AC:1.27 ?? CI:83% FHR:157bpm-reg ?JUANITA: wnl EDC: 80Tcd54 ?EGA: 19.0wks correspon d SURVEY Type: Ordonez [...] screening documented in this encounter Care Teams Interpretive Program Coordinator Relationship Specialty Start Date End Date Pedro Burt MD PCP - General 10/19/02 09/12/13 [address] [id number] documented as of this encounter
--- OUTSIDE RECORDS SUMMARY | 2022-05-04 21:28 | XMS_ITS | Encounter Summary ---
:1980 Author Organization [facility] Address [address] [place] [address] Care Team Providers Name Role Phone Pedro Burt MD Primary Care Provider Encounter Details Date Type Department Care Team Description 01/30/2003 Orders Only [facility] Shravan Park DIAGNOSIS NOT YET [facility] MD Stephen DEFINED (Prim darryl Dx) [place] [address] [place] [phone] Social History Tobacco Use Types Packs/Day Years [...] Primary documented in this encounter Care Teams Pulp And Paper Tester Relationship Specialty Start Date End Date Pedro Burt MD PCP - General 10/19/02 09/12/13 [address] [id number] documented as of this encounter
--- OUTSIDE RECORDS SUMMARY | 2022-05-04 21:28 | XMS_ITS | Encounter Summary ---
:1980 Author Organization [facility] Address [address] [place] [address] Care Team Providers Name Role Phone Pedro Burt MD Primary Care Provider Reason for Visit Reason Comments Care Encounter Details Date Type Department Care Team Description 11/27/[address] [facility] Shravan Park SUPERVIS N [address] [facility] MD Stephen PREG (Primary Dx) [place] [address] [place] [address] Social History Tobacco Use Types [...] Primary documented in this encounter Care Teams Home Care Scheduler Relationship Specialty Start Date End Date Pedro Burt MD PCP - General 10/19/02 09/12/13 [address] [id number] documented as of this encounter
--- OUTSIDE RECORDS SUMMARY | 2022-05-04 21:28 | XMS_ITS | Encounter Summary ---
:1980 Author Organization [facility] Address [address] [place] [address] Care Team Providers Name Role Phone Pedro Burt MD Primary Care Provider Reason for Visit Reason Comments Care possible missed AB Encounter Details Date Type Department Care Team Description 10/30/2002 Office Visit [facility] Shravan Park SUPERVIS N [address] [facility] MD Stephen PREG (Primary Dx) [place] [address] [place] [address] Social History Tobacco Use Types [...] who presents for 1st. OB vist. Pat acl's LMPfrom OB Dating Form was 07/13/2002. Periods are regular q 28- 30 days. Seen in [place] ER f or bleeding. Some cramping. Transfer from [facility] [place] [facility] [place] [facility]. Current contraception: condoms Ther e is no previous medical history on file. There is no previous surgical history on file. Meds as of 10/30/2002: 1+1 OR TABS 1 TABLET DAILY Review of patient's allergies indicates: No Known D rug * Tobacco Use: Yes Packs/Day: Years: 5 Comment: less than 1/2 pack pe r day Alcohol Use: No Review of Systems CONSTITUTIONAL:NEGATIVE EYES: NEGATIVE ENT/HEVRE TH: NEGATIVE RESP: NEGATIVE CV: NEGATIVE GI: [...] documented in this encounter Care Teams Air Brake Adjuster Relationship Specialty Start Date End Date Pedro Burt MD PCP - General 10/19/02 09/12/13 [address] [id number] documented as of this encounter
--- OUTSIDE RECORDS SUMMARY | 2022-05-04 21:28 | XMS_ITS | Encounter Summary ---
:1980 Author Organization [facility] Address [address] [place] [address] Care Team Providers Name Role Phone Pedro Burt MD Primary Care Provider Encounter Details Date Type Department Care Team Description 01/17/2003 Orders Only [facility] Shravan Park DIAGNOSIS NOT YET [address] [facility] MD Stephen DEFINED (Primary Dx) [address] [...] Primary documented in this encounter Care Teams International Organizer Relationship Specialty Start Date End Date Pedro Burt MD PCP - General 10/19/02 09/12/13 [address] [id number] documented as of this encounter
--- OUTSIDE RECORDS SUMMARY | 2022-05-04 21:28 | XMS_ITS | Clinical Summary ---
:1980 Author Organization [facility] Address [place] [address] Care Team Providers Name Role Phone Buck [...] Used Date Smoking Tobacco: Every Day Cigarettes 0.5 15 Smokeless Tobacco: Never Tobacco Cessation: Counseling Given: Yes Alcohol Use [...] Completed 03/26/2017 Medical Devices Implanted Type Area Resp Therapist Device Shelf Model / Identifier Expiration Serial / Lot Date Vessel Guard Preclude 5x6cm - [id number] Spine W.Alondra Manzanares A nd [id number] / Implanted: Qty: 1 on 02/27/2009 at [facility] / [id number] Results Not on filefrom Last 3 Months Insurance Payer Benefit Plan / Subscriber ID Effective Phone Address T ype Group Dates 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 VICTIMS [id number] 2017-Pre [address] [employer] 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 [address] [place] [address] 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 WC SENTRY [id number] 2007-Pres [address] [place] [address] MEDICARE PART A MEDICARE PART A [id number] 2009-Prese ATTN: CLAIMS - HB USE ONLY HB ONLY nt [address] [facility] [place] [address] MEDICARE PART B MEDICARE PART B [id number] 2009-Prese ATTN: CLAIMS - HB USE ONLY HB ONLY nt [address] [facility] [address] MEDICARE - PB MEDICARE PB ONLY [id number] 2009-Prese ATTN: CLAIMS USE ONLY nt [address] [facility] [address] JULIETA RENDON [place] [id number] 2021-Prese [address] [place] [address] [address]) [place] [address] Jewell Lambert Personal/Family Self 1980 [address]) [place] [address] Jewell Lambert Workers Comp Self [phone] (Home) [place] [address] Advance Directives Latest Code Status on File Code Status Date Activated Date Inactivated Comments Full Code 04/21/2017 9:34 AM 04/23/2017 4:12 PM Code Status History Code Status Date Activated Date Inactivated Comments Full Code 04/07/2017 7:20 AM 04/09/2017 3:52 PM Full Code 02/27/2009 8:46 AM 03/04/2009 6:33 PM Care Teams Medical Care Manager Relationship Specialty Start Date End Date Buck Young MD PCP - General Family Practice 10/14/[address] [place] [address]
== END 2022-04-09 22:49 | disposition home or self-care (01) ==
LOC: AMB 05-04 21:21
PROVIDERS: PCP Family Medicine; Visit Provider Family Medicine
DX: R10.9 Unspecified abdominal pain (principal); M54.9 Dorsalgia, unspecified
CPT/HCPCS: A0425; A0427

== ENCOUNTER 2022-04-09 23:11 | Emergency (ER) | payer MEDICARE, MEDICAID, SELFPAY ==
[2022-04-09 23:13] VITALS: BP 147/92; PULSE 92; RESP 16; TEMP 36.6; O2SAT 99
[2022-04-09 23:26] LABS: Appearance Urine Clear (Clear); Bilirubin Urine 1+ (Negative); Blood Urine Negative (Negative); Color Urine Yellow (Yellow); Glucose Urine Negative (Negative); Ketones Urine 2+ (Negative); Leukocyte Esterase Urine Negative (Negative); Nitrite Urine Positive (Negative); Protein Urine 1+ (Negative); Specific Gravity Urine 1.025 (1.000-1.030); Urobilinogen Urine 0.2 (0.2-1.0)
[2022-04-09 23:34] LABS: Bacteria Urine Moderate; HCG Qualitative* Negative (Negative); RBC Urine 0-2 (0-2); Squamous Epithelial Cell Urine Few (None-Few)
[2022-04-10 00:07] LABS: Basophils Absolute Auto 0.02 K/uL (0.00-0.30); Basophils Percent Auto 0.3 % (0.0-3.0); Eosinophils Absolute Auto 0.08 K/uL (0.00-0.50); Eosinophils Percent Auto 1.1 % (0.0-7.0); Hematocrit 40.7 % (33.0-51.0); Hemoglobin* 13.4 gm/dL (12.0-16.0); Immature Granulocytes Abs Auto 0.02 K/uL (0.00-0.30); Immature Granulocytes Pct Auto 0.3 %; Lymphocytes Percent Auto 18.2 % (20-44); Mean Corpuscular HGB Conc 33 gm/dL (32-36); Mean Corpuscular Hemoglobin 31 pg (26-34); Mean Corpuscular Volume 94 fL (80-100); Monocytes Percent Auto 5.8 % (0.0-11.0); Neutrophils Percent Auto 74.3 % (42.0-72.0); Platelet Count* 251 K/uL (140-440); RDW Coefficient of Variation % 12.4 % (11.5-15.5); Red Blood Count 4.31 m/uL (4.00-5.20)
[2022-04-10 00:09] LABS: Slide Review Reflex No
[2022-04-10 00:17] LABS: Albumin* 4.2 g/dL (3.3-5.0); Chloride* 102 mmol/L (96-114); Sodium* 136 mmol/L (135-149)
[2022-04-10 00:19] LABS: Creatinine* 0.4 mg/dL (0.5-1.5); Estimated Glomerular Filt Rate 128 ml/min
[2022-04-10 00:20] LABS: Alanine Aminotransferase* 21 U/L (4-35); Alkaline Phosphatase* 142 U/L (40-150); Aspartate Amino Transferase* 36 U/L (12-35); Bilirubin Direct* 0.1 mg/dL (0.0-0.5); Blood Urea Nitrogen* 7 mg/dL (5-24); Carbon Dioxide* 25 mmol/L (20-32); Glucose* 98 mg/dL (60-115); Lipase* 1499 U/L (23-300); Total Protein* 7.9 g/dL (6.0-8.3)
[2022-04-10 00:21] LABS: Calcium* 8.9 mg/dL (8.4-10.6)
[2022-04-10 00:22] LABS: Ethanol* < 0.01 % (0.01-0.03)
--- NOTE | 2022-04-10 00:25 | ED.ABDPAIN ---
HPI - Abdominal Pain General Chief Complaint: Abdominal Pain Stated Complaint: Abdominal Pain Time Seen by Provider: 04/09/22 23:41 History of Present Illness HPI narrative: This 42-year-old female comes in reporting upper epigastric abdominal pain for the past couple days. She states that it is always there but does have some spikes that are very intense. She has some nausea and decreased appetite. She wonders also if she might have a urinary tract infection. Her primary complaint however is this upper epigastric pain that does seem to radiate through to her back a bit. She does have a history of alcohol abuse and states that she has cut back a lot but did have a Tea twister today. Related Data Home Medications Medication Instructions Recorded Confirmed clonazepam 0.5 mg tablet 0.5 mg PO .Bedtime 03/09/22 duloxetine 30 mg capsule,delayed 60 mg PO QDAY 03/09/22 release folic acid 1 mg tablet 1 mg PO DAILY 03/09/22 gabapentin 600 mg tablet 600 mg PO TID 03/09/22 hydrocortisone 1 % topical cream 1 applic topical BID 03/09/22 hydroxyzine pamoate 25 mg capsule 25 mg PO Q6H PRN 03/09/22 lidocaine 5 % topical patch 1 patch transdermal .Every 24 Hours 03/09/22 magnesium oxide 400 mg (241.3 mg 400 mg PO BID 03/09/22 magnesium) tablet metoprolol tartrate 50 mg tablet 50 mg PO BID 03/09/22 nicotine 14 mg/24 hr daily 1 patch transdermal .Every 24 Hours 03/09/22 transdermal patch potassium chloride 10 mEq 10 meq PO BID 03/09/22 capsule,extended release thiamine HCl (vitamin B1) 100 mg 100 mg PO DAILY 03/09/22 tablet trazodone 50 mg tablet 50 mg PO .Bedtime as needed PRN 03/09/22 Previous Rx's Medication Instructions Recorded dextroamphetamine-amphetamine 20 20 mg PO BID #60 tabs 03/03/22 mg tablet (Adderall) Allergies Allergy/AdvReac Type Severity Reaction Status Date / Time venlafaxine Allergy Unknown Verified 12/26/21 11:07 SPICE FLAVOR AdvReac Mild Unknown Uncoded 12/26/21 11:07 Review of Systems Status of ROS Reports: 10 or more systems reviewed and unremarkable except as noted in History and below Narrative Constitutional: No fevers, no weight gain or loss. Eyes: No discharge. No vision changes. HENT: No congestion, no sore throat, no ear pain. Cardiovascular: No chest pain, no palpitations. Respiratory: No shortness of breath, no wheezes, no cough. Gastrointestinal: No vomiting, no diarrhea. Upper epigastric abdominal pain as described above. Genitourinary: No hematuria. She reports a suspicion of a urinary tract infection. Musculoskeletal: Normal range of motion. Skin: No rashes, no pruritis. Neurological: No dizziness, weakness, sensory change, speech change. Endo/Heme/Allergies: No bruising or bleeding. No polydipsia. Pysch: no suicidality, no anxiety, no insomnia. All other systems reviewed and are negative. [facility] Medical History ADHD, predominantly inattentive type Anemia due to acute blood loss Anxiety Diet controlled White classification A1 gestational diabetes mellitus (GDM) Gastroenteritis History of anxiety History of cervical dysplasia (2009) History of difficulty sleeping History of psychosis History of spontaneous History of use of contraceptive intrauterine device (IUD) History of vaginal delivery Multigravida of advanced maternal age Pain in pelvis care Retained products of conception with hemorrhage Transfusion of blood during current hospitalization Vaginal bleeding Surgical History History of colposcopy History of elective (1998) History of elective History of loop electrical excision procedure (LEEP) (2010) History of spinal surgery (2008) Status post dilation and curettage (01/15/19) Status post dilation and curettage Status post primary low transverse section (01/10/19) Status post primary low transverse section Status post repair of anterior cruciate ligament (1994) Social History Narrative: Single, 2 kids, smoker, currently sober, unemployed Tobacco use Smoking Status: Current every day smoker What tobacco products do you use: cigarettes Smoking packs per day: 1 Smoking cigarettes per day: 20.0 Do you use any of these nicotine containing products: None Second hand tobacco smoke exposure: No How often do you have a drink containing alcohol: 2-3 times a week How many standard drinks containing alcohol do you have on a typical day: 3 or 4 How often do you have six or more drinks on one occasion: Never AUDIT-C Alcohol total score: 4 Non-prescribed substance use: denies use service: No Exam Narrative: Exam Narrative: Constitutional: Well-developed, well-nourished, no acute distress. HEENT: Normocephalic, atraumatic. Neck: Normal range of motion. Nontender. Supple. Heart: Regular. No murmurs. Normal rate. Intact distal pulses. Lungs: Clear to auscultation. No chest discomfort. No wheezes, rhonchi, or rales. Abdomen: Normal bowel sounds. Tenderness localized in upper abdomen. No rebound tenderness. Genitalia: Deferred. Back: No midline tenderness. Normal range of motion. Extremities: Normal range of motion. No injury. Skin: Intact. No rash. Warm. No erythema or pallor. Neurologic: No altered sensation. No weakness. Alert and oriented. Psychiatric: No suicidality. No anxiety or depression. No insomnia. Nursing notes and vitals signs are reviewed. Const: Vital Signs, click to edit/add: Vital Signs - 24 hr 04/09/22 23:13 Temperature 97.8 F Pulse Rate [Left P ulse Oximeter] 92 Respiratory Rate 16 Blood Pressure [Ri ght Upper Arm] 147/92 H Pulse Oximetry 99 Oxygen Delivery Me thod Room Air Course Vital Signs Vital signs: Initial Vital Signs Temperature 97.8 F 04/09/22 23:13 Temperature Source Temporal Artery Scan 04/09/22 23:13 Pulse Rate 92 04/09/22 23:13 Respiratory Rate 16 04/09/22 23:13 Blood Pressure 147/92 H 04/09/22 23:13 Blood Pressure Mean 110 04/09/22 23:13 Blood Pressure Position Sitting 04/09/22 23:13 Pulse Oximetry 99 04/09/22 23:13 Oxygen Delivery Method 04/09/22 23:13 Vital Signs Temperature 97.8 F 04/09/22 23:13 Pulse Rate 92 04/09/22 23:13 Respiratory Rate 16 04/09/22 23:13 Blood Pressure 147/92 H 04/09/22 23:13 Pulse Oximetry 99 04/09/22 23:13 Oxygen Delivery Method 04/09/22 23:13 Temperature 97.8 F 04/09/22 23:13 Pulse Rate 92 04/09/22 23:13 Respiratory Rate 16 04/09/22 23:13 Blood Pressure 147/92 H 04/09/22 23:13 Pulse Oximetry 99 04/09/22 23:13 Oxygen Delivery Method 04/09/22 23:13 MDM - Abdominal Pain MDM Narrative Medical decision making narrative: This patient comes in with severe upper epigastric abdominal pain as described above. She arrives by ambulance with an IV in place but this soon failed. A repeat IV placement was done and then she received IV doses of Zofran 4 mg and Dilaudid 0.5 mg. Lab results are ordered and pending at the end of my shift. I did use bedside ultrasound to evaluate her right upper quadrant and saw normal anatomy there including normal gallbladder. Care for this patient is transferred to the overnight physician who will look after lab results and make a plan from there. Lab Data Labs: Lab Results 04/09/22 04/09/22 04/09/22 Range/Units 23:20 23:59 23:59 WBC 7.20 (4.50-11.00) K/uL RBC 4.31 (4.00-5.20) m/uL Hgb 13.4 (12.0-16.0) gm/dL Hct 40.7 (33.0-51.0) % MCV 94 (80-100) fL MCH 31 (26-34) pg MCHC 33 (32-36) gm/dL RDW Coeff of Melissa 12.4 (11.5-15.5) % Plt Count 251 (140-440) K/uL Neut % (Auto) 74.3 H (42.0-72.0) % Lymph % (Auto) 18.2 L (20-44) % [place] % (Auto) 5.8 (0.0-11.0) % Eos % (Auto) 1.1 (0.0-7.0) % Baso % (Auto) 0.3 (0.0-3.0) % Neut # (Auto) 5.30 (1.7-7.0) K/uL Lymph # (Auto) 1.30 (0.90-2.90) K/uL [place] # (Auto) 0.40 (0.00-0.90) K/UL Eos # (Auto) 0.08 (0.00-0.50) K/uL Baso # (Auto) 0.02 (0.00-0.30) K/uL Abs Immat Gran (auto) 0.02 (0.00-0.30) K/uL Imm/Tot Granulo (auto) 0.3 % Sodium 136 (135-149) mmol/L Potassium 3.0 L (3.6-5.1) mmol/L Chloride 102 (96-114) mmol/L Carbon Dioxide 25 (20-32) mmol/L BUN 7 (5-24) mg/dL Creatinine 0.4 L (0.5-1.5) mg/dL Estimated GFR 128 ml/min Glucose 98 (60-115) mg/dL Calcium 8.9 (8.4-10.6) mg/dL Total Bilirubin 1.0 (0.1-1.5) mg/dL Direct Bilirubin 0.1 (0.0-0.5) mg/dL AST 36 H (12-35) U/L ALT 21 (4-35) U/L Alkaline Phosphatase 142 (40-150) U/L Total Protein 7.9 (6.0-8.3) g/dL Albumin 4.2 (3.3-5.0) g/dL Lipase (23-300) U/L HCG, Qual Negative (Negative) Urine Color Yellow (Yellow) Urine Appearance Clear (Clear) Urine pH 6.0 (5.0-8.5) Ur Specific [place] 1.025 (1.000-1.030) Urine Protein 1+ A (Negative) Urine Glucose (UA) Negative (Negative) Urine Ketones 2+ A (Negative) Urine Blood Negative (Negative) Urine Nitrite Positive A (Negative) Urine Bilirubin 1+ A (Negative) Urine Urobilinogen 0.2 (0.2-1.0) Ur Leukocyte Esterase Negative (Negative) Urine RBC 0-2 (0-2) Urine WBC 2-5 (0-5) Ur Squamous Epith Cells Few (None-Few) Urine Bacteria Moderate A (None) Ethyl Alcohol (0.01-0.03) % 04/09/22 Range/Units 23:59 WBC (4.50-11.00) K/uL RBC (4.00-5.20) m/uL Hgb (12.0-16.0) gm/dL Hct (33.0-51.0) % MCV (80-100) fL MCH (26-34) pg MCHC (32-36) gm/dL RDW Coeff of Melissa (11.5-15.5) % Plt Count (140-440) K/uL Neut % (Auto) (42.0-72.0) % Lymph % (Auto) (20-44) % [place] % (Auto) (0.0-11.0) % Eos % (Auto) (0.0-7.0) % Baso % (Auto) (0.0-3.0) % Neut # (Auto) (1.7-7.0) K/uL Lymph # (Auto) (0.90-2.90) K/uL [place] # (Auto) (0.00-0.90) K/UL Eos # (Auto) (0.00-0.50) K/uL Baso # (Auto) (0.00-0.30) K/uL Abs Immat Gran (auto) (0.00-0.30) K/uL Imm/Tot Granulo (auto) % Sodium (135-149) mmol/L Potassium (3.6-5.1) mmol/L Chloride (96-114) mmol/L Carbon Dioxide (20-32) mmol/L BUN (5-24) mg/dL Creatinine (0.5-1.5) mg/dL Estimated GFR ml/min Glucose (60-115) mg/dL Calcium (8.4-10.6) mg/dL Total Bilirubin (0.1-1.5) mg/dL Direct Bilirubin (0.0-0.5) mg/dL AST (12-35) U/L ALT (4-35) U/L Alkaline Phosphatase (40-150) U/L Total Protein (6.0-8.3) g/dL Albumin (3.3-5.0) g/dL Lipase 1499 H (23-300) U/L HCG, Qual (Negative) Urine Color (Yellow) Urine Appearance (Clear) Urine pH (5.0-8.5) Ur Specific [place] (1.000-1.030) Urine Protein (Negative) Urine Glucose (UA) (Negative) Urine Ketones (Negative) Urine Blood (Negative) Urine Nitrite (Negative) Urine Bilirubin (Negative) Urine Urobilinogen (0.2-1.0) Ur Leukocyte Esterase (Negative) Urine RBC (0-2) Urine WBC (0-5) Ur Squamous Epith Cells (None-Few) Urine Bacteria (None) Ethyl Alcohol < 0.01 L (0.01-0.03) % Discharge Plan Discharge Clinical Impression: Abdominal pain Prescriptions: No Action dextroamphetamine-amphetamine [Adderall] 20 mg tablet 20 mg PO BID Qty: 60 0RF Rx Instructions: administer doses at least 4-6 hours apart folic acid 1 mg tablet 1 mg PO DAILY metoprolol tartrate 50 mg tablet 50 mg PO BID lidocaine 5 % adhesive patch,medicated 1 patch transdermal .Every 24 Hours hydrocortisone 1 % cream 1 applic topical BID magnesium oxide 400 mg (241.3 mg magnesium) tablet 400 mg PO BID thiamine HCl (vitamin B1) 100 mg tablet 100 mg PO DAILY clonazepam 0.5 mg tablet 0.5 mg PO .Bedtime trazodone 50 mg tablet 50 mg PO .Bedtime as needed PRN nicotine 14 mg/24 hr patch 24 hour 1 patch transdermal .Every 24 Hours gabapentin 600 mg tablet 600 mg PO TID duloxetine 30 mg capsule,delayed release(DR/EC) 60 mg PO QDAY hydroxyzine pamoate 25 mg capsule 25 mg PO Q6H PRN potassium chloride 10 mEq capsule, extended release 10 meq PO BID Follow Up/Referrals: Buck Young MD [Primary Care Provider] - Procedures Ultrasound Biliary exam #1: Anatomical areas examined: gallbladder, long and short axis and common bile duct Indications: RUQ/epigastric pain Exam type: limited abdominal ultrasound; RUQ Impression: normal exam
[2022-04-10] MEDS: 0.9 % SODIUM CHLORIDE 1000 ml 1,000 ML IV (00:39)
[2022-04-10] MEDS: HYDROmorphone 0.5 mg/0.5 ml inj IVP (00:39)
[2022-04-10] MEDS: ONDANSETRON 2 MG/ML inj 4 MG IVP ×2 (00:39→02:22)
--- NOTE | 2022-04-10 00:58 | CRLHL7_ITS ---
For Patients: As a result of the Century Cures Act, medical imaging exams and procedure reports are released immediately into your electronic medical record. You may view this report before your referring provider. If you have questions, please contact your health care provider. INDICATION: Pancreatitis TECHNIQUE: CT Abdomen and pelvis with i.v. contrast. Coronal and sagittal reformats were obtained. CONTRAST: 58 mL Isovue 370 COMPARISON: 08/06/2020 FINDINGS: Lower chest: Unremarkable. Liver: Unremarkable. Spleen: Unremarkable. Pancreas: There is a well-circumscribed fluid collection seen in the tail of the pancreas measuring 6 cm. An adjacent fluid collection in the gastrosplenic ligament is noted measuring 4.6 cm and a 3rd smaller fluid collection is seen in the pancreatic head measuring 2 cm with several smaller adjacent satellite cystic lesion seen. These may represent pseudocysts. Ill-defined decreased enhancement is noted within the pancreatic head but evaluation is limited by beam hardening artifact. Gallbladder: Mild gallbladder distention with moderate gallbladder wall edema is seen. The common bile duct is enlarged measuring 12 mm. Kidney: Unremarkable. No kidney or ureteral stones or obstruction seen. Adrenal: Unremarkable. Bowel: Mild retroperitoneal edema and wall thickening is seen surrounding the duodenum. These may be due to secondary inflammatory changes from the suspected pancreatitis. The appendix is normal in appearance and size. Vascular: Unremarkable. Lymph: Unremarkable. Peritoneum: Unremarkable. No pneumoperitoneum is seen. No significant ascites is noted. Pelvis: Unremarkable. Soft tissue: Unremarkable. Bone: Metallic disc prosthesis are present at L3-4 and L4-5. Anterior spinal fusion with metallic plate is present at L5-S1. IMPRESSIONS: 1. Ill-defined decreased enhancement is noted within the pancreatic head but evaluation is limited by beam hardening artifact. Correlation with amylase and lipase levels is recommended to exclude acute pancreatitis. 2. Multiple new well-circumscribed fluid collections are seen in the upper abdomen and may represent pancreatic pseudocysts. 3. The common bile duct is enlarged measuring 12 mm. Assessment with MRCP may be helpful. Dictated by Scar Mills MD @ 04/10/2022 1:52:49 AM Please note that all CT scans at this facility use dose modulation, iterative reconstruction, and/or weight-based dosing when appropriate to reduce radiation dose to as low as reasonably achievable. Dictated by: Scar Mills MD @ 04/10/2022 01:53:05 (Electronically Signed)
[2022-04-10 02:30] VITALS: BP 120/87; PULSE 72; RESP 16; O2SAT 99
[2022-04-10] MEDS: hydrOXYzine pamoate 25 MG CAPSULE 50 MG PO (04:51)
[2022-04-10] MEDS: OXYCODONE 5 MG TABLET PO (04:57)
[2022-04-10 07:30] VITALS: BP 116/74; PULSE 79; RESP 16; TEMP 36.2; O2SAT 97
== END 2022-04-10 08:33 | disposition home or self-care (01) ==
PROVIDERS: Emergency Provider Emergency Medicine Emergency Medical Services; PCP Family Medicine
DX: R10.9 Unspecified abdominal pain (principal)
CPT/HCPCS: 36415; 74177; 76705; 80048; 80076; 81003; 81015; 82077; 83690; 84703; 85025; 87086; 87186; 96374; 96375; 96376; 99284; A9270; J1170; J2405; J7030; Q9967

== ENCOUNTER 2022-04-10 22:07 | Outpatient (CLI) | payer MEDICARE, MEDICAID, SELFPAY ==
--- OUTSIDE RECORDS SUMMARY | 2022-04-30 15:25 | XMS_ITS | Clinical Summary ---
:1980 Author Organization [facility] Address [address] [place] [address] Care Team Providers Name Role Phone [facility], [facility] Primary Care Provider [phone] Allergies Active Allergy Reactions Severity Noted [...] 03/02/2009, 04/06/2008 Influenza Intranasal Vaccine 04/08/2010 Influenza Vaccine >6 months 03/26/2017, 03/11/2016 (Alfuria,Fluzone) Nasal Influenza Vaccine 2-49 (FluMist) 04/08/2010 Pneumococcal 23 valent 03/02/2009 Td (Adult), Adsorbed [...] (127 lb 9.6 oz) 04/24/2019 3:53 PM OUTSIDE B2B SALES Height 167.6 cm (5' 6) 09/02/2017 11:17 [...] Dates Phone Addre ss Type Group [facility] [id number] 2021-Presen [phone] [address] [place] t 0 [place] [address] MEDICARE MEDICARE [id number] 2017-Presen [phone] ATTN CL AIMS Medicare t 0 [address] [place] [address] Guarantor Name Account Type Relation to Date of Phone Billing Patient Address Jewell Lambert Personal/Family Self 1980 [phone] (Home) [place] [address] Jewell Lambert Personal/Family Self 1980 [phone] [address] (Home) [place] [address] Jewell Lambert Personal/Family Self 1980 [phone] (Home) [place] [address] Jewell Lambert Worker's Self 1980 [phone] [employer] 4 (Home) [place] [phone] Care Teams Backup Sawyer Relationship Specialty Start Date End Date [facility] PCP - General 12/17/21 [address] [place] [address]
--- OUTSIDE RECORDS SUMMARY | 2022-04-30 15:25 | XMS_ITS | Encounter Summary ---
:1980 Author Organization [facility] Address [address] [place] [address] Care Team Providers Name Role Phone Danette Shepherd MD Primary Care Provider Reason for Visit Reason Comments EEG Encounter Details Date Type Department Care Team Description 05/03/2019 Allied Health/Nurse [facility] Epilepsy Care Jairon Greene EEG Visit [address] [place], [place] [address] [place], [place] [phone] (Wo rk) Social History Tobacco Use Types Packs/Day Years Used Date Smoking Tobacco: Every Day Cigarettes 5 Smokeless Tobacco: Never Comments: 5-6 cigarettes daily Alcohol Use Standard Drinks/Week Comments No 0 (1 standard drink = 0.6 oz pure alcoho l) Sex Assigned at Date Recorded Not on file documented as of this encounter Progress Notes Ailyn Stewart - 05/03/2019 1:00 PM CST CPT 64573-00 OP/3hr Video EEG [facility] [place] [address]. Disla reading ICAL RESEARCH TECHNICIAN documented in this encounter Procedure Notes Floyd Disla MD - 05/03/2019 5:07 PM CSTAssociated Order(s): EEG [facility] EEG #[id number] (Out-Patient Video-EEG Monitoring) Name: Jewell Estrella : [...] Neurology MT: LJ Name: JEWELL ESTRELLA Account: [id number] : 1980 Procedure Date: 05/03/2019 Document: [id number] ICAL RESEARCH TECHNICIAN documented in this encounter Plan of Treatment Scheduled Orders Name Type Priority Associated Diagnoses Order S chedule CHARGE: Video EEG < Procedures Routine Spell of behavior karolyn nge Ordered: 05/03/2019 12 hours ([id number]) documented as of this encounter Procedures Procedure Name Priority Date/Time Associated Diagnosis Comme nts EEG ROUTINE 05/03/2019 5:07 PM Results f or this CLINICAL RESEARCH TECHNICIAN procedure are i n the results section . documented in this encounter Results EEG (05/03/2019 5:07 PM CLINICAL RESEARCH TECHNICIAN) Procedure Note Floyd Disla MD - 05/03/2019 5:07 PM CST [facility] EEG #[id number] (Out-Patient Vi sergo-EEG Monitoring) Name: Jewell Estrella [...] RUBEN Name: JEWELL ESTRELLA MRN: [id number] Account: [id number] : 1980 Procedure Date: 05/03/20 19 Document: [id number] Floyd Disla MD IMG EEG ORDERABLES documented in this encounter Visit Diagnoses Diagnosis Spell of behavior change Other general symptoms documented in this encounter Care Teams See Supervisor Relationship Specialty Start Date End Date Danette Shepherd MD PCP - General Family Practice 09/13/13 12/16/21 [facility] [address] [place] [address] documented as of this encounter
--- OUTSIDE RECORDS SUMMARY | 2022-04-30 15:25 | XMS_ITS | Encounter Summary ---
:1980 Author Organization [facility] Address [address] [place] [address] Care Team Providers Name Role Phone Danette [...] on filedocumented in this encounter Care Teams Belt Changer Relationship Specialty Start Date End Date Danette Shepherd MD PCP - General Family Practice 09/13/13 12/16/21 [facility] [address] [place] [address] documented as of this encounter
--- OUTSIDE RECORDS SUMMARY | 2022-04-30 15:25 | XMS_ITS | Encounter Summary ---
:1980 Author Organization [place] Address [address] [place] [address] Care Team Providers Name Role Phone Danette [...] on filedocumented in this encounter Care Teams Snuff Grinder And Screener Relationship Specialty Start Date End Date Danette Shepherd MD PCP - General Family Practice 09/13/13 12/16/21 [facility] [address] [place] [address] documented as of this encounter
--- OUTSIDE RECORDS SUMMARY | 2022-04-30 15:25 | XMS_ITS | Encounter Summary ---
:1980 Author Organization [facility] Address [address] [place] [address] Care Team Providers Name Role Phone Danette Shepherd MD Primary Care Provider Reason for Referral Mental Health Outpatient (Routine) - Closed Specialty Diagnoses / Procedures Referred By Contact Refer red To Contact Diagnoses Spell of behavior change Alva Leone MD [address] [facility] [address] [place], [place] [address] Referral ID Status Reason Start Date Expiration Date Visits Requ ested Visits Authorized [id number] Closed 04/24/2019 04/23/2020 1 1 CLE PAINTER Reason for Visit Reason Comments New Patient Encounter Details Date Type Department Care Team Description 04/24/2019 Office Visit [facility] NEUROSPECIALTIES Alva Leone of behavior 5775 Aníbal Greene MD change (Primary Dx) [place] [address] [facility] [address] [place] [address] [phone] (Wo rk) Social History Tobacco Use Types [...] Comments Blood Pressure 143/80 04/24/2019 3:53 PM VEHICLE PAINTER Pulse - - Temperature - - Respiratory Rate - - Oxygen Saturation - - Inhaled Oxygen Concentration - - Weight 57.9 kg (127 lb 9.6 oz) 04/24/2019 3:53 PM VEHICLE PAINTER Height - - Body Mass Index 20.6 [...] evaluation shows no pronator drift, normal fingertapping, xllevw-kbov-idykib and bjbj-qbqm-ikhv. The patient has good strength in the [...] Alva Leone MD cc: Danette Shepherd MD [address] [address] ALVA LEONE MD MT: MISTY Name: JEWELL ESTRELLA Account: [id number] : 1980 Service Date: 04/24/2019 Document: [id number] 05/04 addendum: reviewed normal EEG with mother Nelly. CLE PAINTER documented in this encounter Plan of Treatment [...] symptoms documented in this encounter Care Teams Superintendent Greens Relationship Specialty Start Date End Date Danette Shepherd MD PCP - General Family Practice 09/13/13 12/16/21 [facility] [address] [place] [address] documented as of this encounter
--- OUTSIDE RECORDS SUMMARY | 2022-04-30 15:25 | XMS_ITS | Encounter Summary ---
:1980 Author Organization [place] Address [address] [place] [address] Care Team Providers Name Role Phone Danette Shepherd MD Primary Care Provider Reason for Visit Reason Onset Date Comments Appointment 03/21/2019 Who to schedule with Encounter Details Date Type Department Care Team Description 03/21/2019 Telephone [facility] Neurology None Appointment (Who to [address] [place] [address] schedule with) 3rd Floor [place] [phone] Social History Tobacco Use Types Packs/Day [...] Isadora Davenport - 03/21/2019 4:28 PM CDT [facility] Call Center Phone Message May a detailed message be left on voicemail: yes Reason for Call: Question regarding specialist protocol Please follow protocols- only utilize this documentation for questions or concerns that are not clear in the protocol. Contact clinic directly to clarify question(s) via phone or [email or web address] message. Was Clinic Available: yes - told [...] in this encounter Care Teams Director Of Infection Control Relationship Specialty Start Date End Date Danette Shepherd MD PCP - General Family Practice 09/13/13 12/16/21 [facility] [address] [place] [address] documented as of this encounter
--- OUTSIDE RECORDS SUMMARY | 2022-04-30 15:25 | XMS_ITS | Encounter Summary ---
:1980 Author Organization [place] Address [address] [place] [address] Care Team Providers Name Role Phone Clinic, [facility] Primary Care Provider Reason for Visit Reason Comments Back Pain Encounter Details Date Type Department Care Team Description 12/17/2021 Emergency [facility] Mitra Carroll, Beryl fall bilateral low [facility] back pain with [address] [facility] bilateral sciatica [facility] [address] [address] [facility] [phone] [place], [place] [address] (Wo rk) Social History [...] History: ACL repair Lumbar arthoplasty and fusion [place] teeth extraction Leep procedure Family History: Mother-Anxiety [...] instrumentation, arachnoiditis, an infectious/inflammatory process (such as Guillain-Freeborn syndrome, Lyme disease or chronic inflammatory demyelinating [...] Bilirubin Urine Negative Ketones Urine Negative Specific [place] Urine 1.002 (*) Blood Urine Negative pH [...] this time. Patient does live in the [facility], Lyme testing was obtained and [...] is NEGATIVE. No change in treatment per [facility] ED Lab Result Lyme Disease protocol. documented [...] Phon e Number [facility] SPECIALTY CORE/PROT/ENDO Specialty [place], [place] [address] Core/Prot/Endo [address] [facility] [address] Building, Room 3-[facility] Lumbar spine MRI w & w/o contrast [...] instrumentation, arachnoiditis, an infectious/inflammatory process (such as Guillain-Freeborn syndrome, Lyme disease or chronic inflammatory demyelinating polyneuropathy) or even leptomeningeal metastatic disease (if the patient has a history of malignancy), among other etiologies. Narrative 12/17/2021 6:27 AM CDT EXAM: MR LUMBAR SPINE WITHOUT AND WITH CONTRAST LOCATION: [facility] DATE/TIME: 12/17/2021, 3:26 AM INDICATION: Low back [...] neural foraminal stenosis. L5-S1: Interbody spacer placement. [place] us fusion. Bilateral facet arthropathy. Dorsal osteophytic ridging along the midline. No significant central spinal canal stenosis. No significant neural foraminal stenosis. Procedure Note Nick Kathleen MD - 12/17/2021Form atting of this note might be different from the original. EXAM: MR LUMBAR SPINE WITHOUT AND WITH C ONTRAST LOCATION: [facility] DATE/TIME: 12/17/2021, 3:26 AM INDICATION: Low back [...] neural foraminal stenosis. L5-S1: Interbody spacer placement. [place] us fusion. Bilateral facet arthropathy. Dorsal osteophytic [...] instrumentation, arachnoiditis, an infectious/inflammatory process (such as Guillain-Freeborn syndrome, Lyme disease or chronic inflammatory demyelinating polyneuropathy) or even leptomeningeal metastatic disease (if the patient has a history of malignancy), among other etiologies. Mitra Carroll MD IMG MRI ORDERABLES iStat HCG Qualitative , POCT (12/17/2021 2:14 AM CDT) [facility] Method Time Signature HCG Negative Negative, [...] Code Phon e Number [place] [address] Care Lab [address] Lab (1st floor, no room number) (ABNORMAL) UA with Microscopic reflex to Culture (12/17/2021 2:06 AM CDT) [facility] Method Time Signature Color Urine Straw Colorless, 12/17/2021 [facility] Straw, Light 2:17 AM CDT Yellow, Yellow Appearance Urine Clear Clear 12/17/2021 RH LABORATOR Y 2:17 AM CDT Glucose Urine Negative Negative 12/17/2021 [facility] mg/dL 2:17 AM CDT Bilirubin Urine Negative Negative 12/17/2021 [facility] 2:17 AM CDT Ketones Urine Negative Negative 12/17/2021 [facility] mg/dL 2:17 AM CDT Specific [place] 1.002 (L) 1.003 - 12/17/2021 RH LABORATOR [...] Address City/State/ZIP Code [place] [phone] Care Lab [address] Lab (1st floor, no room number) [...] Address City/State/ZIP Code [place] [phone] Care Lab [address] Lab (1st floor, no room number) [...] Address City/State/ZIP Code [place] [address] Care Lab [address] Lab (1st floor, no room number) [...] LAB - BLOOD ORDERABLES Performing Organization Address City/[facility]/ZIP Code [place] [address] Care Lab [address] Lab (1st floor, no room number) [...] and gender (Antoinette et al., NEJM, DOI: 10.1056/[id number]) Specimen Anatomical Collection Method / Collection Time Recei gisele Time (Source) Location / Volume Laterality Blood VENOUS LINE / Venipuncture / 12/17/2021 2:05 07/27/202 2 2:10 Unknown Unknown AM CDT AM CDT Mitra Carroll MD LAB - BLOOD ORDERABLES Performing Organization Address City/State/[place] [address] Care Lab [address] [...] analgesic side effects. Hold while on IV HAWK MISSILE SYSTEM CREWMEMBER or with regular IV opioid dosing. sodium [...] analgesic side effects. Hold while on IV HAWK MISSILE SYSTEM CREWMEMBER or with regular IV opioid dosing. documented in this encounter Care Teams Piano Assembler Relationship Specialty Start Date End Date [facility], [facility] PCP - General 12/17/[address] [place] [address] documented as of this encounter
--- OUTSIDE RECORDS SUMMARY | 2022-04-30 15:25 | XMS_ITS | Encounter Summary ---
:1980 Author Organization [place] Address [address] [place] [address] Care Team Providers Name Role Phone Danette [...] on filedocumented in this encounter Care Teams Optomechanical Technician Relationship Specialty Start Date End Date Danette Shepherd MD PCP - General Family Practice 09/13/13 12/16/21 [facility] [address] [place] [address] documented as of this encounter
--- OUTSIDE RECORDS SUMMARY | 2022-04-30 15:26 | XMS_ITS | Encounter Summary ---
:1980 Author Organization [place] Address [address] [place] [address] Care Team Providers Name Role Phone Danette Shepherd MD Primary Care Provider Reason for Referral Diagnostic Imaging Ultrasound (Routine) - Closed Specialty Diagnoses / Procedures Referred By Contact Refer red To Contact Diagnoses related condition, antepartum Tanya Watson NP Procedures [facility] [address] [place] [address] Fax: Referral ID Status Reason Start Date Expiration Date Visits Requ ested Visits Authorized [id number] Closed 11/08/2018 11/08/2019 1 1 (Routine) - Closed Specialty Diagnoses / Procedures Referred By Contact Refer red To Contact Diagnoses related condition, antepartum Tanya Watson NP [facility] [address] [place] [address] Fax: Referral ID Status Reason Start Date Expiration Date Visits Requ ested Visits Authorized [id number] Closed 11/08/2018 11/08/2019 1 1 Encounter Details Date Type Department Care Team Description 11/08/2018 [facility] Tanya Watson P regnancy related Maternal EMBEDDED SOFTWARE ARCHITECT condition, Medicine Center [facility] antepartum (Primary [facility] Dx) [address] [address] [phone] Social History Tobacco Use Types Packs/Day Years [...] 05/07/2019 documented as of this encounter Results [facility] Comprehensive Single (11/16/2018 2:24 PM CDT) [...] JEWELL ESTRELLA Study Date: 1:26pm Pat. NO: [id number] Referring ??MD: ANGEL KITCHEN Site: [facility] Ticket Broker: Tanya Willett RD MS : 1980 Age: [...] 2 lb 9 ?oz EFW by ?Hadlock ([id number]) Head / Face / Neck Biometry: Software Systems Analyst ? 2.2 ? mm CM ?6.5 ? [...] cava. Inferior vena cava. 3-vessel view. ? 1-bgxpgg-ynrrzco view. Cardiac position. Cardiac size. Cardiac rhythm. [...] Pat. Name:Reba ESTRELLA Date:2018 1:26pm Pat. NO: [id number] MD:BIANCA KITCHEN [facility]her:Tanya Willett RDMS :1980Age:38 INDICATION SGA on outside [...] 2 lb 9 oz EFW by Hadlock ([id number]) Head / Face / Neck Biometry: Software Systems Analyst 2.2 mm CM 6.5 mm Nasal bone [...] vena cava. Inferior vena cava. 3-vessel view. 7-fbdyuc-ykgcafu view. Cardiac position . Cardiac size. Cardiac [...] antepartum documented in this encounter Care Teams Hatchery Manager Relationship Specialty Start Date End Date Danette Shepherd MD PCP - General Family Practice 09/13/13 12/16/21 [facility] [address] [place] [address] documented as of this encounter
--- OUTSIDE RECORDS SUMMARY | 2022-04-30 15:26 | XMS_ITS | Encounter Summary ---
:1980 Author Organization [place] Address [address] [place] [address] Care Team Providers Name Role Phone Danette Shepherd MD Primary Care Provider Encounter Details Date Type Department Care Team Description 10/29/2017 Orders Only [facility]opaedic Taye Fuentes Pain in joint, pelvic Clinic MD [place] region and thigh [address] [facility] [address] (Primary Dx) 4th Floor [address] [place] [address] [phone] Social History Tobacco Use Types Packs/Day Years [...] Primary documented in this encounter Care Teams Rubber Extrusion Machine Operator Relationship Specialty Start Date End Date Danette Shepherd MD PCP - General Family Practice 09/13/13 12/16/21 [facility] [address] [place] [address] documented as of this encounter
--- OUTSIDE RECORDS SUMMARY | 2022-04-30 15:26 | XMS_ITS | Encounter Summary ---
:1980 Author Organization [place] Address [address] [place] [address]. [place] [address] Care Team Providers Name Role Phone Danette Shepherd MD Primary Care Provider Encounter Details Date Type Department Care Team Description 09/15/2017 Hospital Encounter [facility] Randy, [facility] MD Ernst OR [facility] [address] [place] [address] [address] [facility] [phone] [address] [place], [place] [address] (Wo rk) Social History Tobacco Use Types [...] encounter Progress Notes Naye Hope, [facility] - 09/15/2017 12:02 PM CDT Pharmacy Note - Admission Medication History Pertinent Provider Information: Prior To Admission (TRAINING DEVELOPER) med list completed and updated in EMR. TRAINING DEVELOPER Med List Medication Sig Last Dose ??? [...] Patient was asked about OTC/herbal products specifically. TRAINING DEVELOPER med list reflects this. Based on the pharmacist???s assessment, the TRAINING DEVELOPER med list information appears reliable Allergies were [...] her body. We are working with a loan supervisor. See comment in Rosette tolberton page two. Care Provided: Supportive conversation, prayers for continued strength and clarity, for patient, family, and her dtr. Plan of Care: Consulted with Lead Armament Repairer to leave this note. Spiritual Care is available Armament Repairer Chikis Connelly documented in this encounter H&P Notes Zi [...] of ankle [M79.5] Surgeon(s): Zi Padilla MD Supervisor Travel Trailer: Paul Segura RN Scrub Person: Tatiana Laguerre [...] applicable). Zi Padilla MD IMG DIAGNOSTIC IMAGING [facility] Pathology Exam (09/15/2017 1:46 PM CDT) [facility] Method Time Signature Case Report Surgical Pathology ?Case: [id number] ? 09/17/2017 [facility] Authorizing Provider: ??Tl Padilla MD ?Collected: ? 09/15/2017 1346 ? 4:52 PM CDT [facility] Ordering Location: ? [facility] OR Received: ?09/15/2017 1414 ? TASHIAND S [...] [facility] Clinical Pre-op Diagnosis: 09/17/2017 [facility] Information Retained foreign 4:52 PM CDT [...] or a small piece of decorative tile. JPL:[facility] Charges CPT: [id number] 09/17/2017 [facility] ICD-10: M79.5 4:52 PM CDT [facility] Result Flag Normal 09/17/2017 [facility] 4:52 PM CDT [facility] Comment: SPECIMEN PROCESSING: All histology slide preparation and stai ns; and cytology slide preparation, staining, and ware dresser screening done at [facility] are performed at [facility], [address] [place] [address], [id number], with final interpretatio n, frozen section analysis, [...] Organization Address City/State/ZIP Code Phon e Number [facility] [place] [address] Lab [facility] [address] [place] [address] LABORATORY HCG qualitative urine (09/15/2017 10:45 AM CDT) [facility] Method Time Signature hCG Urine Negative Negative 09/15/2017 HEALTH Qualitative 10:53 AM CDT [facility] Specific 1.024 1.001 - 09/15/2017 M [facility] [place] Urine 1.030 10:53 AM CDT [facility] Specimen Anatomical Collection Method Collection Time Receive d Time (Source) Location / / Volume Laterality Urine specimen Non-blood 09/15/2017 10:45 8 (specimen) Collection / AM CDT 10:48 AM CDT Unknown Narrative [facility] - 09/15/2017 10:53 AM CDT This test is for screening purposes. Res ults should be interpreted along with the clinical picture. Confirmation testing i s available if warranted by ordering Test 143, Beta HCG, Quantitative. Floyd Gomez MD LAB - URINE ORDERABLES Performing Organization Address City/State/ZIP Code Phon e Number [facility] [place] [address] [facility] [address] [place] [address] [address] [facility] [address] [place], [place] [address] [address] documented in this encounter Visit Diagnoses Not on filedocumented in this encounter Care Teams Mortgage Loan Assistant Relationship Specialty Start Date End Date Danette Shepherd MD PCP - General Family Practice 09/13/13 12/16/21 [facility] [address] [place] [address] documented as of this encounter
--- OUTSIDE RECORDS SUMMARY | 2022-04-30 15:26 | XMS_ITS | Encounter Summary ---
:1980 Author Organization [place] Address [address] [place] [address] Care Team Providers Name Role Phone Pedro Burt MD Primary Care Provider Encounter Details Date Type Department Care Team Description 07/07/2010 Office Visit-[facility] Guillermina Sawyer RN Social History Tobacco Use Types Packs/Day Years Used Date Smoking Tobacco: Every Day Cigarettes 5 Comments: 5-6 cigarettes daily Alcohol Use Standard Drinks/Week Comments No 0 (1 standard drink = 0.6 oz pure alcoho l) Sex Assigned at Date Recorded Not on file documented as of this encounter Progress Notes Guillermina Sawyer - 07/07/2010 4:20 PM CST Housing Assistant: Guillermina Sawyer Status: Final - Signature Encounter: 07 Jul 2010 Type: Chart Note Date: 07 Jul 2010 4:12 PM CHEESE PRODUCTION SUPERVISOR, Recorded By: Guillermina Sawyer Caller: Arthur Ayala, [...] by:Guillermina Sawyer RN Jul 07 2010 4:22PM CHEESE PRODUCTION SUPERVISOR Electronically signed by:Taye Fuentes M.D. Jul 17 2010 9:33AM CHEESE PRODUCTION SUPERVISOR SE PRODUCTION SUPERVISOR documented in this encounter Plan of Treatment Not on filedocumented as of this encounter Visit Diagnoses Not on filedocumented in this encounter Care Teams Order Checker Packer Processer Relationship Specialty Start Date End Date Pedro Burt MD PCP - General 10/19/02 09/12/13 [address] [place] [address] documented as of this encounter
--- OUTSIDE RECORDS SUMMARY | 2022-04-30 15:26 | XMS_ITS | Encounter Summary ---
:1980 Author Organization [place] Address [address] [place] [address] Care Team Providers Name Role Phone Pedro Burt MD Primary Care Provider Reason for Visit Reason Onset Date Comments Refill Request 08/05/2010 chantix 1 mg & nitro furantoin Encounter Details Date Type Department Care Team Description 08/05/2010 Refill [facility] Pedro Burt MD Refill Request (chantix [facility] [place] [address] 1 mg & nitrofurantoin) [address] [place] [address] [phone] Social History Tobacco Use Types Packs/Day Years [...] ied documented in this encounter Care Teams Cross Roller Relationship Specialty Start Date End Date Pedro Burt MD PCP - General 10/19/02 09/12/13 [address] [place] [address] documented as of this encounter
--- OUTSIDE RECORDS SUMMARY | 2022-04-30 15:26 | XMS_ITS | Encounter Summary ---
:1980 Author Organization [place] Address [address] [place] [address] Care Team Providers Name Role Phone Danette [...] W/O CONTRAST HC DOPPLER ECHO PULSED, [place] [address] HC DOPPLER ECHO PULSED, F/U OR LIMITED HC DOPPLER ECHO COLOR FLOW VELOCITY MAP Referral ID Status Reason Start Date Expiration Date Visits Requ ested Visits Authorized [id number] Closed 11/16/2018 11/16/2019 1 1 Reason for [...] W/O CONTRAST HC DOPPLER ECHO PULSED, [place] [address] HC DOPPLER ECHO PULSED, F/U OR LIMITED HC DOPPLER ECHO COLOR FLOW VELOCITY MAP Referral ID Status Reason Start Date Expiration Date Visits Requ ested Visits Authorized [id number] Closed 11/16/2018 11/16/2019 1 1 Encounter Details Date Type Department Care Team Description 12/16/2018 [facility] anomaly, antepartum, [facility] [address] [facility] e or [facility] [place] 400 unspecified fetus [address] [facility] [place], [place] [address] Social History Tobacco Use Types Packs/Day [...] AM CDT Narrative 12/16/2018 11:50 AM CDT [id number]^PONCE^CAMILLE^KENDRA ?Study ID: [id number] ?[facility] ?[employer] ?[address] ?[place] [address] ? Echocardiogram __ Name: JEWELL ESTRELLA Study Date: 12/16/2018 11:00 AM ? Patient Location: [facility] Gender: Female ?Patient Class: Outpatient : 1980 ? Age: 38 yrs Ordering Provider: CAMILLE PONCE Referring Provider: CAMILLE PONCE Performed By: Sidra Gonsalves RDCS Reading Physician: Nathaly Steel MD Reason For Study: Suspected anomal y, antepartum, single or unspecified fetus Data: Number of fetuses: This is a headley gestation. Due date: 01/28/2019. Gestational age: 33+6. Deliver y at: [place]. Specific Indication: echocar diogram performed for fetus [...] the left atriu m. There is laminar dqzft-dv-ersz shunting across the foramen ovale. Atrioventricular valves: [...] note might be different from the original. [id number]^KRIS^CAMILLE^KENDRA Study ID: [id number] [facility] [address] [place] [address] Echocardiogram __ Name: JEWELL ESTRELLA Study Date: 12/16/2018 11:00 AM Patient Location: [facility] Gender: Female Patient Class: Outpatient : 1980 Age: 38 yrs Ordering Provider: CAMILLE PONCE Referring Provider: CAMILLE PONCE Performed By: Sidra Gonsalves RDCS Reading Physician: Nathaly Steel MD Reason For Study: Suspected anomal y, antepartum, single or unspecified fetus Data: Number of fetuses: This is a headley gestation. Due date: 01/28/2019. Gestational age: 33+6. Deliver y at: [place]. Specific Indication: echocar diogram performed for fetus [...] the left atriu m. There is laminar dkbpq-il-ypar shunting across the foramen ovale. Atrioventricular valves: [...] fetus documented in this encounter Care Teams Wire Inspector Relationship Specialty Start Date End Date Danette Shepherd MD PCP - General Family Practice 09/13/13 12/16/21 [facility] [address] [place] [address] documented as of this encounter
--- OUTSIDE RECORDS SUMMARY | 2022-04-30 15:26 | XMS_ITS | Encounter Summary ---
:1980 Author Organization [place] Address [address] [place] [address] Care Team Providers Name Role Phone Pedro Burt MD Primary Care Provider Reason for Visit Reason Onset Date Comments Refill Request 11/03/2010 tazorac 0.1% cream 6 0gm Refill Request 11/03/2010 fluticasone nasal (1 20INH) 16 GM and fluticasone Refill Request 11/03/2010 Audra Encounter Details Date Type Department Care Team Description 11/03/2010 Refill [facility] Pedro Burt MD Refill Request ([facility] [place] [address] 0.1% cream 60gm); Refill [address] [facility] Request ([place] [address] nasal (120INH) 16 GM and [address] fluticasone); Refill [phone] Request ( Audra) Social History Tobacco Use [...] Pharmacy notified. Thank you, Yodit Mak RN [facility] Telephone Encounter - Pedro Burt MD [...] as well. Thank you, Yodit Mak RN [facility] Telephone Encounter - Gail Wahl - [...] rhinitis documented in this encounter Care Teams Non Linear Editor Relationship Specialty Start Date End Date Pedro Burt MD PCP - General 10/19/02 09/12/13 [address] [place] [address] documented as of this encounter
--- OUTSIDE RECORDS SUMMARY | 2022-04-30 15:26 | XMS_ITS | Encounter Summary ---
:1980 Author Organization [place] Address [address] [place] [address] Care Team Providers Name Role Phone Danette Shepherd MD Primary Care Provider Reason for Referral Diagnostic Imaging Ultrasound (Routine) - Closed Specialty Diagnoses / Procedures Referred By Contact Refer red To Contact Diagnoses related condition, antepartum Lolita Montoya Procedures [facility] [address] [place] [address] Referral ID Status Reason Start Date Expiration Date Visits Requ ested Visits Authorized [id number] Closed 12/19/2018 12/19/2019 1 1 Reason for Visit Diagnostic Imaging Ultrasound (Routine) - Closed Specialty Diagnoses / Procedures Referred By Contact Refer red To Contact Diagnoses related condition, antepartum Lolita Montoya Procedures [facility] [address] [place] [address] Referral ID Status Reason Start Date Expiration Date Visits Requ ested Visits Authorized [id number] Closed 12/19/2018 12/19/2019 1 1 Encounter Details Date Type Department Care Team Description 01/03/2019 Hospital Encounter [facility] Lolita Montoya [facility] [address] [place] [address] related Maternal Reba Veliz DO [address] [facility] [address] [place], [place] [id number] condition, Medicine Center antepartum [place] Ganesh E Bryn [facility] [address] [place] [address] Social History Tobacco Use Types [...] Procedure Name Priority Date/Time Associated Comments Diagnosis [facility] COMPREHENSIVE Routine 01/03/2019 12:46 relate d Results for this SINGLE F/U PM CDT condition, procedure are i n antepartum the results section. documented in this encounter Results [facility] Comprehensive Single F/U (01/03/2019 12:46 PM [...] JEWELL ESTRELLA Study Date: 12:00pm Pat. NO: [id number] Referring ??: JOSE RAUL WESTBROOK SALCEDO Site: [facility] Sales Planning Coordinator: Marce Gustafson RDMS : 1980 Age: 38 [...] 5 lb 3 ?oz EFW by ?Hadlock ([id number]) ANATOMY The following structures appear normal: Head / Neck ? Cranium. Head size. Head shape. Lateral ventricles. Midline falx. Cavum septi pellucidi. Cerebellum. Cisterna magna. Thalami. Face ? Lips. Profile. Nose. Heart / Thorax ?4-chamber view. RVOT view. LVOT view. 5-mwcbdd-vjdjilo view. ? Diaphragm. Abdomen ? Stomach. Kidneys. [...] 6lbs at term. Recommend biophysical profiles in [facility] to assess for placental insufficiency (oligo, etc). [...] Pat. Name:Reba ESTRELLA Date:2018 12:00pm Pat. NO: [id number] MD:LOLITA Redd [facility] Site:[place]:Marce Gustafson RDMS :1980Age:38 INDICATION Check growth METHOD [...] 5 lb 3 oz EFW by Hadlock ([id number]-HI-PT-FL) ANATOMY The following structures appear normal: Head / Neck Cranium. Head size. Head sha pe. Lateral ventricles. Midline falx. Cavum septi pellucidi. Cerebellum. Cisterna magna. Thalami. Face Lips. Profile. Nose. Heart / Thorax 4-chamber view. RVOT view . LVOT view. 2-amtdbd-lhnwnpb view. Diaphragm. Abdomen Stomach. Kidneys. Bladder. Spine [...] RECOMMENDATION We discussed the findings on today's [facility] with the patient. This pattern of growth is most likely re lated to constitutional smallness. Her first baby was 6lbs at term. Recommend biophysical profiles in [facility] to assess for placental insufficiency (oligo, etc). [...] The BPP is reassuring. Lolita Salcedo Teresa [facility] US ORDERABLES documented in this encounter Visit Diagnoses Diagnosis related condition, antepartum documented in this encounter Care Teams Trading Analyst Relationship Specialty Start Date End Date Danette Shepherd MD PCP - General [facility] Practice 09/13/13 12/16/21 [facility] [address] [facility] [place] [address] documented as of this encounter
--- OUTSIDE RECORDS SUMMARY | 2022-04-30 15:26 | XMS_ITS | Encounter Summary ---
:1980 Author Organization [place] Address [address] [place] [address] Care Team Providers Name Role Phone Danette [...] on filedocumented in this encounter Care Teams Senior Backup Administrator Relationship Specialty Start Date End Date Danette Shepherd MD PCP - General Family Practice 09/13/13 12/16/21 [facility] [address] [place] [address] documented as of this encounter
--- OUTSIDE RECORDS SUMMARY | 2022-04-30 15:26 | XMS_ITS | Encounter Summary ---
:1980 Author Organization [place] Address [address] [place] [address] Care Team Providers Name Role Phone Danette Shepherd MD Primary Care Provider Reason for Visit Reason Onset Date Comments Erroneous encounter-disregard 11/04/2017 Encounter Details Date Type Department Care Team Description 11/04/2017 Office Visit [facility] Orthopaedic Taye Fuentes [facility] MD [place] ENCOUNTER--DISREGARD [address] (Primary Dx) 4th Floor [address] [place] [address] [phone] Social History Tobacco Use Types Packs/Day Years [...] Primary documented in this encounter Care Teams Medical Billing Associate Relationship Specialty Start Date End Date Danette Shepherd MD PCP - General Family Practice 09/13/13 12/16/21 [facility] [address] [place] [address] documented as of this encounter
--- OUTSIDE RECORDS SUMMARY | 2022-04-30 15:26 | XMS_ITS | Encounter Summary ---
:1980 Author Organization [place] Address [address] [place] [address] Care Team Providers Name Role Phone Danette Shepherd MD Primary Care Provider Reason for Visit Reason Comments Consult Low back, bilateral leg pain . Hx of lumbar fusion at [place] with Dr. Komal MAGAÑA 03/01/2009. Saw Dr. Fuentes 07/02/2010. Encounter Details Date Type Department Care Team Description 09/13/2013 Office Visit [facility]opa[facility] Taye Fuentes Sacroiliitis (H) [facility] MD [place] (Primary Dx) Center [address] [place] [address], [address] [place] [address] [phone] Social History Tobacco Use Types Packs/Day Years [...] leg pain. Hx of lumbar fusion at [place] with Dr. Kmoal MAGAÑA 03/01/2009. Saw Dr. Fuentes 07/02/2010. Ht [...] classified documented in this encounter Care Teams Tandem Mill Roller Relationship Specialty Start Date End Date Danette Shepherd MD PCP - General Family Practice 09/13/13 12/16/21 [place] [id number] [place] [address] documented as of this encounter
--- OUTSIDE RECORDS SUMMARY | 2022-04-30 15:26 | XMS_ITS | Encounter Summary ---
:1980 Author Organization [place] Address [address] [place] [address] Care Team Providers Name Role Phone Pedro Burt MD Primary Care Provider Reason for Visit Reason Onset Date Comments Erroneous encounter-disregard 11/03/2010 Encounter Details Date Type Department Care Team Description 11/03/2010 Refill [facility] Pedro Burt MD Erroneous Clinic [place] [address] [place] encounter-disregard [address] [place] [address] [phone] Social History Tobacco Use Types Packs/Day Years Used Date Smoking Tobacco: Every Day Cigarettes 5 Comments: 5-6 cigarettes daily Alcohol Use Standard Drinks/Week Comments No 0 (1 standard drink = 0.6 oz pure alcoho l) Sex Assigned at Date Recorded Not on file documented as of this encounter Miscellaneous Notes Telephone Encounter - Yodit Mak RN - 11/03/2010 1:30 PM CDT See other refill encounter. Thank you, Yodit Mak RN [facility] Telephone Encounter - Rachel Tavera - 11/03/2010 11:24 AM CDT ALLERGY MEDICATION Last Office Visit : 04/05/2009 ANTIHISTAMINES: : Audra, Astelin, Claritin, Clarinex, Zyrtec, Vistaril May substitute via therapeutic comparison chart: SECOND GENERATION ANTIHISTAMINES NASAL STEROIDS: Aristacort/Azmacort/NasacortAQ, Azmanex, Beconase/Vancenase/QVAR/Beclovent, Flonase,Nasarel, Nasonex, Rhinocort May substitute via therapeutic comparison chart: STEROID NASAL SPRAY EPIPEN/BEE STING KIT OPHTHALMIC ALLERGY DROPS: Pantanol, Zaditor Max refills: 12 mths OV: 12 mths ANTIHISTAMINES WITH DECONGESTANTS: Claritin D, Audra D, Zyrtec D OV: 6 mths Max refills: 6 mths Refer to MD if last BP is >140/90 BP Readings from Last 1 Encounters: 05/12/09 90/64 documented in this encounter Plan of Treatment Not on filedocumented as of this encounter Visit Diagnoses Diagnosis Chronic rhinitis documented in this encounter Care Teams Regional Geodetic Advisor Relationship Specialty Start Date End Date Pedro Burt MD PCP - General 10/19/02 09/12/13 [address] [address] documented as of this encounter
--- OUTSIDE RECORDS SUMMARY | 2022-04-30 15:26 | XMS_ITS | Encounter Summary ---
:1980 Author Organization [place] Address [facility] [place] [address] Care Team Providers Name Role Phone Danette Shepherd MD Primary Care Provider Reba Veliz DO Unavailable [phone] Jairon Greene MD Unavailable Encounter Details Date [...] on filedocumented in this encounter Care Teams Bait Man Relationship Specialty Start Date End Date Danette Shepherd MD PCP - General Family Practice 09/13/13 12/16/21 [facility] [address] [place] [address] Reba Veliz Assigned OBGYN Provider 03/15/20 07/06/20 DO Sil[place] [address] [place] [address] [place] [address] Jairon Greene, Assigned Neuroscience 03/15/20 10/26/20 Provider 420 [facility] [address] [place], [place] [address] documented as of this encounter
--- OUTSIDE RECORDS SUMMARY | 2022-04-30 15:26 | XMS_ITS | Encounter Summary ---
:1980 Author Organization [place] Address [facility] [place] [address] Care Team Providers Name Role Phone Danette Shepherd MD Primary Care Provider Reba Veliz DO Unavailable [phone] Jairon Greene MD Unavailable Reason for Visit Reason Comments Results Encounter Details Date Type Department Care Team Description 01/04/2018 [facility] Nereyda Beatty [address] [address] Social History Tobacco Use Types [...] on filedocumented in this encounter Care Teams Paving Inspector Relationship Specialty Start Date End Date Danette Shepherd MD PCP - General Family Practice 09/13/13 12/16/21 [facility] [address] [place] [address] Reba Veliz Assigned OBGYN Provider 03/15/20 07/06/20 DO Silvina [address] [facility] [address] [place] [address] Jairon Greene, Assigned Neuroscience 03/15/20 10/26/20 Provider 420 [facility] [address] [place] [address] documented as of this encounter
--- OUTSIDE RECORDS SUMMARY | 2022-04-30 15:26 | XMS_ITS | Encounter Summary ---
:1980 Author Organization [place] Address [address] [place] [address] Care Team Providers Name Role Phone Danette Shepherd MD Primary Care Provider Reason for Referral Diagnostic Imaging Ultrasound (Routine) - Closed Specialty Diagnoses / Procedures Referred By Contact Refer red To Contact Diagnoses related condition, antepartum Tanya Watson NP Procedures [facility] [address] [place] [address] Fax: Referral ID Status Reason Start Date Expiration Date Visits Requ ested Visits Authorized [id number] Closed 11/08/2018 11/08/2019 1 1 Reason for Visit Diagnostic Imaging Ultrasound (Routine) - Closed Specialty Diagnoses / Procedures Referred By Contact Refer red To Contact Diagnoses related condition, antepartum Tanya Watson NP Procedures [facility] [address] [place] [address] Fax: Referral ID Status Reason Start Date Expiration Date Visits Requ ested Visits Authorized [id number] Closed 11/08/2018 11/08/2019 1 1 Encounter Details Date Type Department Care Team Description 11/16/2018 Hospital Encounter [facility] Dre Watson NP [facility] [address] [place] [address] related Maternal Camille Grijalva MD [address] [id number] condition, Medicine Center antepartum [place] Ganesh E Bryn [facility] [address] [place] [address] Social History Tobacco Use [...] Procedure Name Priority Date/Time Associated Comments Diagnosis [facility] COMPREHENSIVE Routine 11/16/2018 2:24 PM rela alicia Results for this SINGLE CDT condition, procedure are i n antepartum the results section. documented in this encounter Results [facility] Comprehensive Single (11/16/2018 2:24 PM [...] JEWELL ESTRELLA Study Date: 1:26pm Pat. NO: [id number] Referring ??MD: ANGEL KITCHEN Site: [facility] Transformation Architect: Tanya Willett RD MS : 1980 Age: [...] 2 lb 9 ?oz EFW by ?Hadlock ([id number]) Head / Face / Neck Biometry: [employer] Professional ? 2.2 ? mm CM ?6.5 ? [...] cava. Inferior vena cava. 3-vessel view. ? 2-kqbebw-gyzepic view. Cardiac position. Cardiac size. Cardiac rhythm. [...] Pat. Name:Reba ESTRELLA Date:2018 1:26pm Pat. NO: [id number] MD:BIANCA KITCHEN [facility]:Tanya Willett RDMS :1980Age:38 INDICATION SGA on outside [...] 2 lb 9 oz EFW by Hadlock ([id number]-FL) Head / Face / Neck Biometry: [employer] Professional 2.2 mm CM 6.5 mm Nasal bone [...] vena cava. Inferior vena cava. 3-vessel view. 5-xrgown-cmflblx view. Cardiac position . Cardiac size. Cardiac [...] long and closed. Tanya Watson NP IMG [facility] US ORDERABLES documented in this encounter Visit Diagnoses Diagnosis related condition, antepartum documented in this encounter Care Teams Catheterization Laboratory Technician Relationship Specialty Start Date End Date Danette Shepherd MD PCP - General Family Practice 09/13/13 12/16/21 [facility] [address] [place] [address] documented as of this encounter
--- OUTSIDE RECORDS SUMMARY | 2022-04-30 15:26 | XMS_ITS | Encounter Summary ---
:1980 Author Organization [place] Address [address] [place] [address] Care Team Providers Name Role Phone Danette [...] on filedocumented in this encounter Care Teams Corrosion Technician Relationship Specialty Start Date End Date Danette Shepherd MD PCP - General Family Practice 09/13/13 12/16/21 [facility] [address] [place] [address] documented as of this encounter
--- OUTSIDE RECORDS SUMMARY | 2022-04-30 15:26 | XMS_ITS | Encounter Summary ---
:1980 Author Organization [place] Address [address] [place] [address] Care Team Providers Name Role Phone Danette Shepherd MD Primary Care Provider Reason for Referral Diagnostic Imaging Ultrasound (Routine) - Closed Specialty Diagnoses / Procedures Referred By Contact Refer red To Contact Diagnoses related condition, antepartum Lolita Montoya Procedures [facility] Comprehensive Single F/U [facility] [address] [place] [address] Referral ID Status Reason Start Date Expiration Date Visits Requ ested Visits Authorized [id number] Closed 12/19/2018 12/19/2019 1 1 Encounter Details Date Type Department Care Team Description 12/19/2018 Transcribe Orders [facility] [place] Porfirio Shrestha, Pregn fahad related Maternal Lolita Gottlieb condition, Medicine Center [facility] antepartum (Primary [facility] Dx) [address] [facility] [address] [place] [address] [phone] Social History Tobacco Use Types Packs/Day Years Used Date Smoking Tobacco: Every Day Cigarettes 5 Comments: 5-6 cigarettes daily Alcohol Use Standard Drinks/Week Comments No 0 (1 standard drink = 0.6 oz pure alcoho l) Sex Assigned at Date Recorded Not on file documented as of this encounter Plan of Treatment Not on filedocumented as of this encounter Results [facility] Comprehensive Single F/U (01/03/2019 12:46 PM [...] JEWELL ESTRELLA Study Date: 12:00pm Pat. NO: [id number] Referring ??: JOSE RAUL MARTINEZ Site: [facility] Communications Planner: Marce Gustafson RDMS : 1980 Age: 38 [...] 5 lb 3 ?oz EFW by ?Hadlock ([id number]-[id number]-FL) ANATOMY The following structures appear normal: Head / Neck ? Cranium. Head size. Head shape. Lateral ventricles. Midline falx. Cavum septi pellucidi. Cerebellum. Cisterna magna. Thalami. Face ? Lips. Profile. Nose. Heart / Thorax ?4-chamber view. RVOT view. LVOT view. 5-tmxpsp-pwqyklg view. ? Diaphragm. Abdomen ? Stomach. Kidneys. [...] 6lbs at term. Recommend biophysical profiles in [place] to assess for placental insufficiency (oligo, etc). [...] [place]. Name:Reba ESTRELLA Date:2018 12:00pm Pat. NO: [id number] MD:LOLITA Redd [facility]Marce Gustafson RDMS :1980Age:38 INDICATION Check growth [...] 5 lb 3 oz EFW by Hadlock ([id number]-FL) ANATOMY The following structures appear normal: Head / Neck Cranium. Head size. Head sha pe. Lateral ventricles. Midline falx. Cavum septi pellucidi. Cerebellum. Cisterna magna. Thalami. Face Lips. Profile. Nose. Heart / Thorax 4-chamber view. RVOT view . LVOT view. 5-aubrea-isksvuh view. Diaphragm. Abdomen Stomach. Kidneys. Bladder. Spine [...] 6lbs at term. Recommend biophysical profiles in [place] to assess for placental insufficiency (oligo, etc). [...] The BPP is reassuring. Lolita Shrestha IMTeresa [facility] US ORDERABLES documented in this encounter Visit Diagnoses Diagnosis related condition, antepartum - Primary related condition, antepartum documented in this encounter Care Teams Dispatch Manager Relationship Specialty Start Date End Date Danette Shepherd MD PCP - General Family Practice 09/13/13 12/16/21 [facility] [address] [place] [address] documented as of this encounter
--- OUTSIDE RECORDS SUMMARY | 2022-04-30 15:26 | XMS_ITS | Encounter Summary ---
:1980 Author Organization [place] Address [facility] [place] [address] Care Team Providers Name Role Phone Danette Shepherd MD Primary Care Provider Encounter Details Date Type Department Care Team Description 08/26/[address] [facility] Zi Padilla Retained foreign [facility] MD Ernst body in soft tissue [facility] [place] [facility] [address] [phone] Social History Tobacco [...] tissue documented in this encounter Care Teams Shield Operator Relationship Specialty Start Date End Date Danette Shepherd MD PCP - General Family Practice 09/13/13 12/16/21 [facility] [address] [place] [address] documented as of this encounter
--- OUTSIDE RECORDS SUMMARY | 2022-04-30 15:26 | XMS_ITS | Encounter Summary ---
:1980 Author Organization [place] Address [address] [place] [address]. [place] [address] Care Team Providers Name Role Phone Danette Shepherd MD Primary Care Provider Encounter Details Date Type Department Care Team Description 12/14/2017 [facility] [place] [phone] [place] [address] (Wo rk) Social History Tobacco [...] on filedocumented in this encounter Care Teams Vice President Medical Affairs Relationship Specialty Start Date End Date Danette Shepherd MD PCP - General Family Practice 09/13/13 12/16/21 [facility] [address] [place] [address] documented as of this encounter
--- OUTSIDE RECORDS SUMMARY | 2022-04-30 15:26 | XMS_ITS | Encounter Summary ---
:1980 Author Organization [place] Address [address] [place] [address] Care Team Providers Name Role Phone Danette Shepherd MD Primary Care Provider Reba Veliz DO Unavailable [phone] Jairon Greene MD Unavailable Encounter Details Date Type Department Care Team Description 09/15/2017 [facility] [place] [address] [place] [address] [place], [place] [phone] [address] Social History Tobacco Use Types Packs/Day [...] Care Transfer Note - Ruthy Simon, MARISOL SHIRT HEMMER - 09/15/2017 2:06 PM CDT Last vitals: [...] on filedocumented in this encounter Care Teams Drilling Foreman Relationship Specialty Start Date End Date Danette Shepherd MD PCP - General Family Practice 09/13/13 12/16/21 [facility] [address] [place] [address] Reba Veliz Assigned OBGYN Provider 03/15/20 07/06/20 DO Silvina [address] [place] [address] 400 [place] [address] Jairon Greene, Assigned Neuroscience 03/15/20 10/26/20 Provider 420 [facility] 295 [place] [address] documented as of this encounter
--- OUTSIDE RECORDS SUMMARY | 2022-04-30 15:26 | XMS_ITS | Encounter Summary ---
:1980 Author Organization [place] Address [address] [place] [address] Care Team Providers Name Role Phone Pedro Burt MD Primary Care Provider Reason for Visit JOH[facility] Physical Therapy (Routine) - Closed Specialty Diagnoses / Procedures Referred By Contact Refer red To Contact Diagnoses WC/ Mid back/ Dr. Taye Fuentes @ / cl# [id number] doi: 01-16-07 adj: Sarah Neville @ [phone] [id number] - Left message with Sarah @ [phone] [id number] requesting 6 visits for Mid back starting 07-02-10 cl Taye Fuentes MD M [facility] Sports # [id number] doi: 01-16-07 ML [address] & Physical Therapy - [place] [address] [place] [address] [place] [address] [place] [address] Phone: Fax: Referral ID Status Reason Start Date Expiration Date Visits V isits Requested Authorized JOHANA/WC/MIDBACK Closed 07/02/2010 09/29/2010 4 Encounter Details Date Type Department Care Team Description 07/04/2010 Therapy Visit [facility] Sonu Ayala athic lesion Rehabilitation Services B, PT of sacral region, not [place] [facility] elsewhere classified [address] SPECIALISTS (Primary Dx) [address] [facility] [address] [place], [place] [address] Social History Tobacco Use Types Packs/Day Years [...] Nonallopathic lesio n of TECH,1+REGIONS,EA 15 MIN ADDRESS CHANGE CLERK sacral region, n ot elsewhere classified [facility] NEUROMUSCULAR Routine 07/07/2010 6:34 AM Nonallopathic les ion of RE-EDUCATION ADDRESS CHANGE CLERK sacral region, not elsewhere classified [facility] THERAPEUTIC Routine 07/07/2010 6:34 AM Nonallopathic lesio n of EXERCISES ADDRESS CHANGE CLERK sacral region, not elsewhere classified documented in this encounter Visit Diagnoses Diagnosis Nonallopathic lesion of sacral region, n ot elsewhere classified - Primary documented in this encounter Care Teams Business Objects Analyst Relationship Specialty Start Date End Date Pedro Burt MD PCP - General 10/19/02 09/12/13 [address] [address] documented as of this encounter
--- OUTSIDE RECORDS SUMMARY | 2022-04-30 15:26 | XMS_ITS | Encounter Summary ---
:1980 Author Organization [place] Address [facility] [place] [address] Care Team Providers Name Role Phone Danette Shepherd MD Primary Care Provider Encounter Details Date Type Department Care Team Description 08/26/2017 Hospital Encounter M [facility] Zi Padilla Retained foreign [facility] MD Ernst body in soft tissue [facility] [place] [facility]5 [facility] [address] [phone] Social History Tobacco [...] tissue documented in this encounter Care Teams Wool Brusher Relationship Specialty Start Date End Date Danette Shepherd MD PCP - General Family Practice 09/13/13 12/16/21 [facility] [address] [place] [address] documented as of this encounter
--- OUTSIDE RECORDS SUMMARY | 2022-04-30 15:26 | XMS_ITS | Encounter Summary ---
:1980 Author Organization [place] Address [address] [place] [address] Care Team Providers Name Role Phone Danette Shepherd MD Primary Care Provider Reason for Visit Reason Onset Date Comments Previsit 11/04/2017 SI JOINT PAIN Encounter Details Date Type Department Care Team Description 11/04/2017 PRE VISIT [facility] Taye Scott (SI JOINT PAIN Clinic MD [place] ) [address] 4[address] [place] [address] [phone] Social History Tobacco Use Types Packs/Day Years [...] Date: 11/04/17 ?? Time: 1400 ?? Location: [facility] REFERRAL INFORMATION: ?? Referring provider: N/A ?? Referring providers clinic: N/A ?? Reason for visit/diagnosis SI JOINT RECORDS STATUS LAST SEEN IN 2013 NO RECENT RECORDS documented in this encounter Plan of Treatment Not on filedocumented as of this encounter Visit Diagnoses Not on filedocumented in this encounter Care Teams Field Examiner Relationship Specialty Start Date End Date Danette Shepherd MD PCP - General Family Practice 09/13/13 12/16/21 [facility] [address] [place] [address] documented as of this encounter
--- OUTSIDE RECORDS SUMMARY | 2022-04-30 15:26 | XMS_ITS | Encounter Summary ---
:1980 Author Organization [place] Address [address] [place] [address]. [place] [address] Care Team Providers Name Role Phone Danette Shepherd MD Primary Care Provider Reba Veliz DO Unavailable [phone] Jairon Greene MD Unavailable Encounter Details Date Type Department Care Team Description 09/15/2017 Surgery - [facility] Josue Padilla [facility] MD Ernst [place] OR [facility]5 [place], [place] [address] [facility] [address] [facility] [phone] [place], [place] [address] (Wo rk) Social History Tobacco [...] on filedocumented in this encounter Care Teams Internal Audit Director Relationship Specialty Start Date End Date Danette Shepherd MD PCP - General Family Practice 09/13/13 12/16/21 [facility] [address] [place] [address] Reba Veliz Assigned OBGYN Provider 03/15/20 07/06/20 DO Silvina [address] [place] [address] [address] [place] [address] Jairon Greene, Assigned Neuroscience 03/15/20 10/26/20 Provider 420 [facility] [address] [place] [address] documented as of this encounter
--- OUTSIDE RECORDS SUMMARY | 2022-04-30 15:26 | XMS_ITS | Encounter Summary ---
:1980 Author Organization [place] Address [facility] [place] [address] Care Team Providers Name Role Phone Danette Shepherd MD Primary Care Provider Reba Veliz DO Unavailable [phone] Jairon Greene MD Unavailable Encounter Details Date Type Department Care Team Description 01/06/[address] [address] Social History Tobacco Use Types [...] on filedocumented in this encounter Care Teams Mortician Helper Relationship Specialty Start Date End Date Danette Shepherd MD PCP - General Family Practice 09/13/13 12/16/21 [facility] [address] [place] [address] Reba Veliz Assigned OBGYN Provider 03/15/20 07/06/20 DO Silvina 60 [facility] 400 [place] [address] Jairon Greene, Assigned Neuroscience 03/15/20 10/26/20 Provider 420 [facility] [address] [place] [address] documented as of this encounter
--- OUTSIDE RECORDS SUMMARY | 2022-04-30 15:26 | XMS_ITS | Encounter Summary ---
:1980 Author Organization [place] Address [address] [place] [address]. [place] [address] Care Team Providers Name Role Phone Danette [...] W/O CONTRAST HC DOPPLER ECHO PULSED, [place] [address] HC DOPPLER ECHO PULSED, F/U OR LIMITED HC DOPPLER ECHO COLOR FLOW VELOCITY MAP Referral ID Status Reason Start Date Expiration Date Visits Requ ested Visits Authorized [id number] Closed 11/16/2018 11/16/2019 1 1 Reason for Visit Reason Comments Ultrasound L2-EFW 8 % on outside US Encounter Details Date Type Department Care Team Description 11/16/2018 Office Visit [facility] Tanya Watson, HUMAN RESOURCES ADMINISTRATOR [facility] [address] [place] [address] Suspected Maternal Camille Ponce MD [address] [place] [address] [place] [address] anomaly, antepartum, Medicine Center single or un specified Kristine fetus (Primary Dx) [address] [place] [phone] Social History Tobacco Use Types Packs/Day Years [...] AM CDT Narrative 12/16/2018 11:50 AM CDT [id number]^KIRS^CAMILLE^KENDRA ?Study ID: [id number] ?[facility] ?[facility] ?[address] ?[place] [address] ? Echocardiogram __ Name: CRISTINABRADLEYJEWELL Study Date: [...] 01/28/2019. Gestational age: 33+6. Deliver y at: [place]. Specific Indication: echocar diogram performed for fetus [...] the left atriu m. There is laminar ssutp-bk-ghma shunting across the foramen ovale. Atrioventricular valves: [...] note might be different from the original. [id number]^KRIS^CAMILLE^KENDRA Study ID: [id number] [facility]'[address] [address] Echocardiogram __ Name: JEWELL ESTRELLA Study Date: 12/16/2018 11:00 AM Patient Location: [facility] Gender: Female Patient Class: Outpatient : 1980 Age: 38 yrs Ordering Provider: CAMILLE PONCE Referring Provider: CAMILLE PONCE Performed By: Sidra Gonsalves RDCS Reading Physician: Nathaly Steel MD Reason For Study: Suspected anomal y, antepartum, single or unspecified fetus Data: Number of fetuses: This is a headley gestation. Due date: 01/28/2019. Gestational age: 33+6. Deliver y at: [place]. Specific Indication: echocar diogram performed for fetus [...] the left atriu m. There is laminar skvwy-rv-avpl shunting across the foramen ovale. Atrioventricular valves: [...] fetus documented in this encounter Care Teams Plc Engineer Relationship Specialty Start Date End Date Danette Shepherd MD PCP - General Family Practice 09/13/13 12/16/21 [facility] [address] [place] [address] documented as of this encounter
--- OUTSIDE RECORDS SUMMARY | 2022-04-30 15:26 | XMS_ITS | Encounter Summary ---
:1980 Author Organization [place] Address [address] [place] [address]. [place] [address] Care Team Providers Name Role Phone Danette Shepherd MD Primary Care Provider Encounter Details Date Type Department Care Team Description 12/19/2014 Medical Correspondence [facility] Deng [facility] REFERRAL [facility] [address] Info [facility] Non-Provider [facility] Srvcs [address] [place] [address] Social History Tobacco Use Types Packs/Day [...] on filedocumented in this encounter Care Teams [place] Machine Operator Relationship Specialty Start Date End Date Danette Shepherd MD PCP - General Family Practice 09/13/13 12/16/21 [facility] [address] [place] [address] documented as of this encounter
--- OUTSIDE RECORDS SUMMARY | 2022-04-30 15:26 | XMS_ITS | Encounter Summary ---
:1980 Author Organization [place] Address [facility] [place] [address] Care Team Providers Name Role Phone Danette Shepherd MD Primary Care Provider Reason for Visit Reason Comments Ultrasound growth Encounter Details Date Type Department Care Team Description 01/03/2019 Office Visit [facility] Ksenia Shrestha [facility] [address] [place] [address] Small for gestational Maternal Reba Veliz DO [address] [place] [address] [place], [place] [address] age fetus affecting Medicine Center management o f mother, [place] third trimester, not [address] applicab le or [address] unspecified fetus [place], [place] (Primary Dx) [address] Social History Tobacco [...] y documented in this encounter Care Teams Outcomes Analyst Relationship Specialty Start Date End Date Danette Shepherd MD PCP - General Family Practice 09/13/13 12/16/21 [facility] [address] [place] [address] documented as of this encounter
--- OUTSIDE RECORDS SUMMARY | 2022-04-30 15:26 | XMS_ITS | Encounter Summary ---
:1980 Author Organization [place] Address [address] [place] [address]. [place] [address] Care Team Providers Name Role Phone Danette Shepherd MD Primary Care Provider Reba Veliz DO Unavailable [phone] Jairon Greene MD Unavailable [facility] [place] Primary Care Provider [phone] Reason for Referral (Routine) - Closed Specialty Diagnoses / Procedures Referred By Contact Refer red To Contact Diagnoses related condition, antepartum Tatiana Montoya [facility] [address] [place] [address] Referral ID Status Reason Start Date Expiration Date Visits Requ ested Visits Authorized [id number] Closed 12/19/2018 12/19/2019 1 1 Encounter Details Date Type Department Care Team Description 12/19/2018 Transcribe Orders [facility] Porfirio Shrestha, Pregn fahad related Maternal Tatiana Gottlieb condition, Medicine Center [facility] antepartum (Primary [facility] Dx) [address] [facility] [address] [place] [address] [phone] Social History Tobacco Use Types Packs/Day Years [...] Primary documented in this encounter Care Teams [place]ill Administrator Relationship Specialty Start Date End Date Danette Shepherd MD PCP - General Family Practice 09/13/13 12/16/21 [facility] [address] [place] [address] [facility] PCP - General 12/17/21 [place] [address] [place] [address] Reba Veliz Assigned OBGYN Provider 03/15/20 07/06/20 DO Silvina [address] [facility] 400 [place] [address] Jairon Greene, Assigned Neuroscience 03/15/20 10/26/20 Provider 420 [facility] 295 [place] [address] documented as of this encounter
--- OUTSIDE RECORDS SUMMARY | 2022-04-30 15:26 | XMS_ITS | Encounter Summary ---
:1980 Author Organization [place] Address [address] [place] [address] Care Team Providers Name Role Phone Danette Shepherd MD Primary Care Provider Reba Veliz DO Unavailable [phone] Jairon Greene MD Unavailable Reason for Visit Reason Comments Advice Only FB in left sinus cavity sinc e sept, brought upper dental xrays, referred by Dr Hagen Sinus Problem clicking - pressure in left sinus cavity when bending over Encounter Details Date Type Department Care Team Description 12/08/2017 Office Visit - [facility] Shay Barrientos MD Sinus pressure [facility] [address] [place] [address] [address] [place] [address] [phone] (Wo rk) Social History Tobacco Use Types [...] Paranasal sinuses non tender EARS Clinical speech bookkeeper receptionist threshold: Normal, able to hear normal [...] air-fluid levels. Narrative 12/15/2017 1:[address] SINUS WO CONTRAST 12/14/2017 1:42 PM [...] note might be different from the original. CT SINUS WO CONTRAST 12/14/2017 1:42 PM [...] es documented in this encounter Care Teams Crusher Loader Equipment Operator Relationship Specialty Start Date End Date Danette Shepherd MD PCP - General Family Practice 09/13/13 12/16/21 [facility] [address] [place] [address] Reba Veliz Assigned OBGYN Provider 03/15/20 07/06/20 DO [address] [facility] [address] [place] [address] Jairon Greene, Assigned Neuroscience 03/15/20 10/26/20 Provider 420 [facility] [address] [place] [address] documented as of this encounter
--- OUTSIDE RECORDS SUMMARY | 2022-04-30 15:26 | XMS_ITS | Encounter Summary ---
:1980 Author Organization [place] Address [address] [place] [address] Care Team Providers Name Role Phone Danette Shepherd MD Primary Care Provider Reason for Visit Reason Comments Ultrasound SGA Encounter Details Date Type Department Care Team Description 11/11/2018 PRE VISIT [facility] Maternal Tavia Garza, Ultrasound (SGA) Medicine Center [place] [address] [facility] [address] [place] [address] Social History Tobacco Use [...] on filedocumented in this encounter Care Teams Cosmetic Sales Consultant Relationship Specialty Start Date End Date Danette Shepherd MD PCP - General Family Practice 09/13/13 12/16/21 [facility] [address] [place] [address] documented as of this encounter
--- OUTSIDE RECORDS SUMMARY | 2022-04-30 15:27 | XMS_ITS | Encounter Summary ---
:1980 Author Organization [place] Address [address] [place] [address] Care Team Providers Name Role Phone Pedro Burt MD Primary Care Provider Reason for Visit Reason Onset Date Comments Formulary Issue 03/20/2010 jason Redd Encounter Details Date Type Department Care Team Description 03/20/2010 Telephone [facility] Pedro Burt MD Formulary Issue [place] [address] [facility] (jason D) [address] [place] [address] [phone] (Wo rk) Social History Tobacco Use Types [...] PM CST Encounter closed Marce Altamirano RN [employer] Telephone Encounter - Mei Pacheco - 04/14/2010 12:46 PM CST I called the MA # below, and they would not run the claim without the NDC # from the pharmacy. I called back to [facility] and the [facility]# [id number]. [employer]OOK Telephone Encounter - Ruthy Echols - 04/10/2010 11:18 AM CST Received fax from [employer] that states Not Found, we are unable to locate this Pt's pharmacy coverage, please check with most recent insurance card Called pharmacy listed- [facility] and they gave the MA # to call. Tried at both 9:00 and 11:15 and both times the provider call center was down. Please try later. # for MA [phone] Pt's ID [id number] [employer] Telephone Encounter - Lashell Verma - 04/04/2010 12:57 PM CST Pt has Care . I will refax the PA form with this info on it. Lashell Verma CMA [employer] Telephone Encounter - Mei Pacheco - 03/27/2010 10:49 AM CDT refaxed form to insurance co. Awaiting approval/denial. Jesús Pacheco R.N. Telephone Encounter - Marce Altamirano - 03/25/2010 2:53 PM CDT Routed to [facility] Marce lAtamirano RN Telephone Encounter - Eliz Squires - 03/25/2010 11:32 AM CDT Form printed off [facility] website and filled out. Faxed to [phone]. Awaiting approval or denial. Eliz Squires RN Telephone Encounter - Pedro Burt - 03/21/2010 8:10 AM CDT Try PA; has failed loratadine/zyrtec Telephone Encounter - Marce Altamirano - 03/20/2010 5:11 PM CDT Fax received from Jason DIAZ NOT covered, Dr Burt please advise PA or rx change, if PA needed call [phone], ID # [id number], routed to Dr Carmel Altamirano RN documented in this encounter Plan of Treatment Not on filedocumented as of this encounter Visit Diagnoses Diagnosis Chronic rhinitis - Primary documented in this encounter Care Teams Lathe Puller Relationship Specialty Start Date End Date Pedro Burt MD PCP - General 10/19/02 09/12/13 [address] [place] [id number] documented as of this encounter
--- OUTSIDE RECORDS SUMMARY | 2022-04-30 15:27 | XMS_ITS | Encounter Summary ---
:1980 Author Organization [place] Address [address] [place] [address] Care Team Providers Name Role Phone Pedro Burt MD Primary Care Provider Reason for Visit Reason Onset Date Comments Formulary Issue 03/07/2010 tazorac Encounter Details Date Type Department Care Team Description 03/07/2010 Telephone [facility] Pedro Burt MD Formulary Issue [address] (tazorac) [address] [place] [phone] [id number] (Wo rk) Social History Tobacco Use Types [...] cause documented in this encounter Care Teams Clinical Massage Therapist Relationship Specialty Start Date End Date Pedro Burt MD PCP - General 10/19/02 09/12/13 [address] [place] [id number] documented as of this encounter
--- OUTSIDE RECORDS SUMMARY | 2022-04-30 15:27 | XMS_ITS | Encounter Summary ---
:1980 Author Organization [place] Address [address] [place] [address] Care Team Providers Name Role Phone Pedro Burt MD Primary Care Provider Reason for Visit Reason Comments UTI Encounter Details Date Type Department Care Team Description 06/07/2009 Office Visit [facility] Lucinda Thompson y Tract Infection, Site not Specified; Venecia Millan PA-C Dysuria [address] [place] [address] [address] [place], [place] [address] Social History Tobacco Use [...] 36.8 ??C (98.3 ??F) 06/07/2009 3:27 PM VOLCANOLOGY PROFESSOR Respiratory Rate - - Oxygen Saturation - - Inhaled Oxygen Concentration - - Weight - - Height - - Body Mass Index - - documented in this encounter Patient Instructions Patient InstructionsLoCaitlyn pablo PA-C - 06/07/2009 3:19 PM VOLCANOLOGY PROFESSOR Urinary Tract Infection in Women What is [...] and pantyhose every day. Copyright ?? 2006 [employer] and/or one of its subsidiaries. All Rights Reserved. ANOLOGY PROFESSOR documented in this encounter Progress Notes Caitlyn [...] these issues and agrees with the plan. ANOLOGY PROFESSOR documented in this encounter Plan of Treatment Not on filedocumented as of this encounter Procedures Procedure Name Priority Date/Time Associated Diagnosis Comme nts ZZCL U/A, W/O MICRO, Routine 06/07/2009 Urinary Tract Result s for this NON AUTO Infection, Site not procedur e are in the Specified results section. Dysuria documented in this encounter Results (ABNORMAL) Urine Test [15704.003] (06/07/2009) [facility] gist Method Time Signature Source [facility] Color Urine Yellow [facility] Appearance Urine cloudy (A) [facility] Glucose negative Neg mg/dL [facility] Bilirubin Urine negative Neg [facility] Ketones negative neg - neg [facility] mg/dL Specific [place] 1.020 1.003 - [facility] Urine 1.035 [...] Organization Address City/State/ZIP Code Phon e Number [facility] [address] [place] [address] [facility] documented in this encounter Visit Diagnoses Diagnosis Urinary tract infection, site not specif ied Dysuria documented in this encounter Care Teams Refrigeration Repair Supervisor Relationship Specialty Start Date End Date Pedro Burt MD PCP - General 10/19/02 09/12/13 [address] [place] [address] documented as of this encounter
--- OUTSIDE RECORDS SUMMARY | 2022-04-30 15:27 | XMS_ITS | Encounter Summary ---
:1980 Author Organization [place] Address [address] [place] [address] Care Team Providers Name Role Phone Pedro Burt MD Primary Care Provider Reason for Visit [facility] Physical Therapy (Routine) - Closed Specialty Diagnoses / Procedures Referred By Contact Refer red To Contact Diagnoses WC/ Mid back/ Dr. Taye Fuentes @ / cl# [id number] doi: 01-16-07 adj: Sarah Neville @ [phone] [id number] - Left message with Sarah @ [phone] [id number] requesting 6 visits for Mid back starting 07-02-10 cl Taye Fuentes MD [facility] [employer] [employer] # [id number] doi: 01-16-07 [address] & Physical Therapy - [place] [address] [facility] [address] [place] [address] [place] [address] Phone: Fax: Referral ID Status Reason Start Date Expiration Date Visits V isits Requested Authorized JOHANA/WC/MIDBACK Closed 07/02/2010 09/29/2010 4 Encounter Details Date Type Department Care Team Description 07/02/2010 Therapy Visit [facility] Sonu Ayala Nonallop athic lesion of sacral region, not elsewhere classified; Rehabilitation Services B, PT Pain in joint, pelvic region and thigh; [facility] Pain in thoracic spine [address] [facility] [address] [facility] [address] [place] [id number] [phone] Social History Tobacco Use Types Packs/Day Years [...] and time spent performing 1:1 timed codes. PATROLMAN Sonu Ayala - 07/02/2010 3:41 PM CST [...] Sheet for this information) Short term and MCFP goals: (See Goal Flow Sheet for this [...] for treatment today and total treatment time. PATROLMAN documented in this encounter Plan of Treatment Not on filedocumented as of this encounter Procedures Procedure Name Priority Date/Time Associated Diagnosis Comme nts [facility] MANUAL THER Routine 07/04/2010 11:23 AM Nonallopathic lesi on of TECH,1+REGIONS,EA 15 MIN TOLL PATROLMAN sacral region, n ot elsewhere classi fied Pain in joint, pelvic region and thigh Pain in thoracic spine [facility] NEUROMUSCULAR Routine 07/04/2010 11:23 AM Nonallopathic le sharee of RE-EDUCATION TOLL PATROLMAN sacral region, not elsewhere classi fied Pain in joint, pelvic region and thigh Pain in thoracic spine [facility] THERAPEUTIC Routine 07/04/2010 11:23 AM Nonallopathic lesi on of EXERCISES TOLL PATROLMAN sacral region, not elsewhere classi fied Pain in joint, pelvic region and thigh Pain in thoracic spine documented in this encounter Visit Diagnoses Diagnosis Nonallopathic lesion of sacral region, n ot elsewhere classified Pain in joint, pelvic region and thigh Pain in thoracic spine documented in this encounter Care Teams Computer Numerical Control Grinder Relationship Specialty Start Date End Date Pedro Burt MD PCP - General 10/19/02 09/12/13 [address] [place] [id number] documented as of this encounter
--- OUTSIDE RECORDS SUMMARY | 2022-04-30 15:27 | XMS_ITS | Encounter Summary ---
:1980 Author Organization [place] Address [address] [place] [address] Care Team Providers Name Role Phone Pedro Burt MD Primary Care Provider Reason for Visit Reason Onset Date Comments MyChart Communication 03/18/2010 lisette Redd Encounter Details Date Type Department Care Team Description [facility] MyChart Communication [address] (lisette Redd, ) [address] [place] [address] Social History Tobacco Use Types [...] - 03/18/2010 11:50 AM CDT Anita Watson, Log Raft Worker Informed patient. Rx has been sent to [...] Added message below from pt to this [employer] message as well. Last OV: 04/05/2009 Reason [...] - 03/18/2010 8:25 AM CDT Message from [place]: Jewell Lambert would like a refill of [...] rhinitis documented in this encounter Care Teams Reeling Machine Operator Relationship Specialty Start Date End Date Pedro Burt MD PCP - General 10/19/02 09/12/13 [address] [place] [address] documented as of this encounter
--- OUTSIDE RECORDS SUMMARY | 2022-04-30 15:27 | XMS_ITS | Encounter Summary ---
:1980 Author Organization [facility] Address [address] [place] [address] Care Team Providers Name Role Phone Pedro Burt MD Primary Care Provider Encounter Details Date Type Department Care Team Description 07/02/2010 Office Visit-[facility] INTERFACE [facility] DEPT Provider, [facility] Nurs e Social History Tobacco Use Types Packs/Day Years Used Date Smoking Tobacco: Every Day Cigarettes 5 Comments: 5-6 cigarettes daily Alcohol Use Standard Drinks/Week Comments No 0 (1 standard drink = 0.6 oz pure alcoho l) Sex Assigned at Date Recorded Not on file documented as of this encounter Progress Notes Provider, [facility] Nurse - 07/02/2010 10:00 AM CST Library Services Assistant: Naye Palm Status: Final Encounter: 02 Jul 2010 Type: Rooming Note Reason For Visit Low back and susu SI, buttocks and leg pain. Pt. is with her mother Nelly Pino, and her [facility] Tone. Do you have any other appointments, tests or procedures within the [facility] system for this same day? 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 Sauceda, [facility] Primary Provider: Rosette Garrett Referring Physician: Dr. [...] By: Naye Palm LP; 07/02/2010 10:20 AM CHART CHANGER. documented in this encounter Plan of Treatment Not on filedocumented as of this encounter Visit Diagnoses Not on filedocumented in this encounter Care Teams Census Clerk Relationship Specialty Start Date End Date Pedro Burt MD PCP - General 10/19/02 09/12/13 [address] [id number] documented as of this encounter
--- OUTSIDE RECORDS SUMMARY | 2022-04-30 15:27 | XMS_ITS | Encounter Summary ---
:1980 Author Organization [facility] Address [address] [place] [address] Care Team Providers Name Role Phone Pedro Burt MD Primary Care Provider Encounter Details Date Type Department Care Team Description 07/02/2010 Office Visit-[facility] Taye Fuentes [facility] MD [place] [address] [address], [address] [place] [address] [phone] Social History Tobacco Use Types Packs/Day Years Used Date Smoking Tobacco: Every Day Cigarettes 5 Comments: 5-6 cigarettes daily Alcohol Use Standard Drinks/Week Comments No 0 (1 standard drink = 0.6 oz pure alcoho l) Sex Assigned at Date Recorded Not on file documented as of this encounter Progress Notes Taye Fuentes - 07/02/2010 10:00 AM CST Automotive Assembler: Taye Fuentes Status: Final - Signature Encounter: 02 Jul 2010 Type: U Ortho Visit Department of Orthopaedic Surgery Administration: [address], [address] [place] [phone] or [phone] Appointments [email or web address] Mail Address: [place] [address], [address] [place] [address] Harjinder Key MD General Orthopaedics Winter Wilkinson [...] will proceed with this withArthur [facility]ala at [facility]. If the manual therapy is not helpful in eliminating this problem we have suggested that another injection with documented relief may be helpful. We did discuss with her and showed a model of the iFuse by [employer], the technology that we use for SI joint fusion. We spent over 1 hour with Jewell and her mother as well as her [facility] today. Greater than 50% in counseling [...] Ins Low Back And Neck [address] [place] [address] PCP Macel Thesis Thesis Case Management [address] [place] [address] Electronically signed by:Taye Fuentes M.D. Jul 17 2010 9:33AM TABLE GAMES FLOOR SUPERVISOR E GAMES FLOOR SUPERVISOR Taye Fuentes - 07/02/2010 10:00 AM CST Automotive Assembler: Taye Fuentes Status: Final - Signature Encounter: 02 Jul 2010 Type: U Ortho Letter Department of Orthopaedic Surgery Administration: [address], [address] [place] [address] or [phone] Appointments [email or web address] Mail Address: [address], [address] [place] [address] Harjinder Key MD General Orthopaedics Winter Wilkinson [...] 02, 2010 Ms. Ailyn Patricio Case Management [address] Yasme[address] Guerrero S Sebastien [address] [facility] [address] RE: Jewell Estrella : 1980 DOS: July [...] by:Taye Fuentes M.D. Jul 03 2010 10:45AM TABLE GAMES FLOOR SUPERVISOR E GAMES FLOOR SUPERVISOR Taye Fuentes - 07/02/2010 10:00 AM CST Automotive Assembler: Taye Fuentes Status: Final - Signature Encounter: 02 Jul 2010 Type: U Ortho Letter Department of Orthopaedic Surgery Administration: [address], [address] [place] [address] or [phone] Appointments [email or web address] Mail Address: [address], [address] [place] [address] Harjinder Key MD General Orthopaedics Winter Wilkinson MD Hand, Wrist, Elbow Kimberly Mondragon MD Sports Medicine - Knee Adult Reconstruction - Knee Elie Middleton MD Shoulder Heath Koo MD Oncology and Adult Reconstruction Amadeo Moran MD Oncology Cortney Liu MD Shoulder and Elbow Glen Acevedo MD Professor Emeritus Adner Echols MD Pediatric Orthopaedics and Scoliosis Ivania [...] Hand/Pediatric July 02, 2010 Mahesh Miranda MD [address] [place] [address] RE: Jewell Estrella : 1980 DOS: July [...] with Jewell, her mom and with her [facility] about all these issues. I certainly [...] by:Taye Fuentes M.D. Jul 03 2010 10:44AM TABLE GAMES FLOOR SUPERVISOR E GAMES FLOOR SUPERVISOR documented in this encounter Plan of Treatment Not on filedocumented as of this encounter Visit Diagnoses Not on filedocumented in this encounter Care Teams Billet Driller Relationship Specialty Start Date End Date Pedro Burt MD PCP - General 10/19/02 09/12/13 [address] [address] documented as of this encounter
--- OUTSIDE RECORDS SUMMARY | 2022-04-30 15:27 | XMS_ITS | Encounter Summary ---
:1980 Author Organization [facility] Address [address] [place] [address] Care Team Providers Name Role Phone Pedro Burt MD Primary Care Provider Reason for Visit Reason Onset Date Comments Refill Request 06/11/2010 benzoyl peroxide, fl onase Encounter Details Date Type Department Care Team Description 06/11/2010 Refill [facility] Pedro Burt MD Refill Request (benzoyl [facility] [place] [address] peroxide, flonase) [address] [place] [address] [facility] [place] [address] [phone] Social History Tobacco Use Types Packs/Day Years [...] standing orders LETTER SENT Zonia Black RN CE CLERK documented in this encounter Plan of Treatment Not on filedocumented as of this encounter Visit Diagnoses Diagnosis Dermatitis Contact dermatitis and other eczema, due to unspecified cause Chronic rhinitis documented in this encounter Care Teams Stepdown Nurse Relationship Specialty Start Date End Date Pedro Burt MD PCP - General 10/19/02 09/12/13 [address] [place] [address] documented as of this encounter
--- OUTSIDE RECORDS SUMMARY | 2022-04-30 15:27 | XMS_ITS | Encounter Summary ---
:1980 Author Organization [facility] Address [address] [place] [address] Care Team Providers Name Role Phone Pedro Burt MD Primary Care Provider Encounter Details Date Type Department Care Team Description 07/29/2009 E-Visit [facility] Pedro Burt MD UTI (Urinary Tract Infection) (Primary D x); Clinic [address] Chronic UTI [address] [place] [address] [phone] Social History Tobacco Use Types Packs/Day Years [...] per orders for prophylaxis x [address] SERVICE PROVIDER documented in this encounter Plan of Treatment Not on filedocumented as of this encounter Visit Diagnoses Diagnosis UTI (urinary tract infection) - Primary Urinary tract infection, site not specif ied Chronic UTI Urinary tract infection, site not specif ied documented in this encounter Care Teams Reexaminer Relationship Specialty Start Date End Date Pedro Burt MD PCP - General 10/19/02 09/12/13 [address] [address] documented as of this encounter
--- OUTSIDE RECORDS SUMMARY | 2022-04-30 15:27 | XMS_ITS | Encounter Summary ---
:1980 Author Organization [facility] Address [address] [place] [address] Care Team Providers Name Role Phone Pedro Burt MD Primary Care Provider Reason for Visit Reason Onset Date Comments Refill Request 07/29/2009 Encounter Details Date Type Department Care Team Description 07/29/2009 MyC Refill [facility] Vickie Burt MD Refill Request [address] [phone] (W ork) [address] [phone] Social History Tobacco Use Types Packs/Day Years Used Date Smoking Tobacco: Every Day Cigarettes 5 Comments: 5-6 cigarettes daily Alcohol Use Standard Drinks/Week Comments No 0 (1 standard drink = 0.6 oz pure alcoho l) Sex Assigned at Date Recorded Not on file documented as of this encounter Miscellaneous Notes Telephone Encounter - Marce Altamirano - 07/30/2009 2:10 PM CST Sent chantix-sent [employer] message Last OV: 03/26/09 Reason for visit: tobacco, anxiety Date last filled: n/a Medication approved per standing orders Marce Altamirano RN ELING CONSTRUCTION SUPERINTENDENT Telephone Encounter - Guillermina Black - 07/29/2009 4:22 PM TRAVELING CONSTRUCTION SUPERINTENDENT Message from [employer]: Jewell Lambert would like a refill of the following medications: CIPROFLOXACIN TABS 500 MG OR [Caitlyn Thompson,] PYRIDIUM 200 MG OR TABS [Sheri Quevedo PA-C] Other - see comments for explanation Preferred pharmacy: [facility] Comment: Dr. Burt as you can see I have had pretty persistant bladder infections AGAIN. I know I have one again. We had a [facility] here in [place] which was convienent for me but it [...] a refill on that toThank Jewell Smiley ELING CONSTRUCTION SUPERINTENDENT documented in this encounter Plan of Treatment Not on filedocumented as of this encounter Visit Diagnoses Diagnosis Urinary tract infection, site not specif ied Tobacco use disorder documented in this encounter Care Teams Correction Officer Reformatory Relationship Specialty Start Date End Date Pedro Burt MD PCP - General 10/19/02 09/12/13 [address] [address] documented as of this encounter
--- OUTSIDE RECORDS SUMMARY | 2022-04-30 15:27 | XMS_ITS | Encounter Summary ---
:1980 Author Organization [facility] Address [address] [place] [address] Care Team Providers Name Role Phone Pedro Burt MD Primary Care Provider Reason for Visit Reason Comments Depression & smoking cessasion Encounter Details Date Type Department Care Team Description 04/05/2009 Office Visit [facility] Pedro Burt MD Tobacco Use Disorder; Clinic [address] Adjustment Disorder with Anx iety; [address] [place] [address] GENERALIZED ANXIETY DIS; [facility] [address] [phone] Social History Tobacco Use Types Packs/Day Years [...] Comments Blood Pressure 116/74 04/05/2009 1:35 PM TANNING DRUM OPERATOR Pulse 102 04/05/2009 1:35 PM TANNING DRUM OPERATOR Temperature - - Respiratory Rate - - Oxygen Saturation - - Inhaled Oxygen Concentration - - Weight 44.5 kg (98 lb) 04/05/2009 1:35 PM TANNING DRUM OPERATOR Height 167.6 cm (5' 6) 04/05/2009 1:35 PM TANNING DRUM OPERATOR Body Mass Index 15.82 04/05/2009 1:35 PM TANNING DRUM OPERATOR documented in this encounter Progress Notes Lashell Verma - 04/05/2009 2:56 PM TANNING DRUM OPERATOR Addended by: LASHELL VERMA on: 04/05/2009 2:56:04 PM Modules accepted: SmartSet ING DRUM OPERATOR Pedro uBrt - 04/05/2009 2:10 PM CST Pt here [...] use OTC bBoost supplement TID with meals. ING DRUM OPERATOR documented in this encounter Nursing Notes [...] Underweight documented in this encounter Care Teams Charge Master Coordinator Relationship Specialty Start Date End Date Pedro Burt MD PCP - General 10/19/02 09/12/13 [address] [address] documented as of this encounter
--- OUTSIDE RECORDS SUMMARY | 2022-04-30 15:27 | XMS_ITS | Encounter Summary ---
:1980 Author Organization [facility] Address [address] [place] [address] Care Team Providers Name Role Phone Pedro Burt MD Primary Care Provider Encounter Details Date Type Department Care Team Description 04/10/[address] [facility] Pedro uBrt MD DIAGNOSIS NOT YET Clinic [facility] [address] [place] [address] DEFINED (Primary Dx) [address] [place], [place] [address] [phone] Social History Tobacco Use Types Packs/Day Years [...] Primary documented in this encounter Care Teams Intern Brand Relationship Specialty Start Date End Date Pedro Burt MD PCP - General 10/19/02 09/12/13 [address] [place] [address] documented as of this encounter
--- OUTSIDE RECORDS SUMMARY | 2022-04-30 15:27 | XMS_ITS | Encounter Summary ---
:1980 Author Organization [facility] Address [address] [place] [address] Care Team Providers Name Role Phone Pedro Burt MD Primary Care Provider Reason for Visit Reason Onset Date Comments Refill Request 03/06/2010 multiple Encounter Details Date Type Department Care Team Description 03/06/2010 MyC Refill [facility] Pedro Burt MD Refill Request [facility] [address] (multiple) [address] [place] [address] (Wo rk) Social History [...] 03/06/2010 6:35 PM CDT Last office visit: [id number] Reason for visit: E-visit for UTI MARIANA: [id number] Medication APPROVED per standing orders. Zonia Black RN Telephone Encounter - Guillermina Black - 03/06/2010 6:33 PM CDT Message from [employer]: Jewell Lambert would like a refill of the following medications: TAZORAC 0.1 % EX CREA [Pedro Burt MD] FLONASE INHA 50 MCG/DOSE NA [Pedro Burt MD] CHANTIX STARTING MONTH NIRMALA 0.5 MG X 11 & 1 MG X 42 OR TABS [Pedro Burt MD] CHANTIX CONTINUING MONTH NIRMALA 1 MG OR TABS [Pedro Burt MD] Preferred pharmacy: [facility] Comment: Dr. Burt I finally have medical [...] disorder documented in this encounter Care Teams Street Sweeper Operator Relationship Specialty Start Date End Date Pedro Burt MD PCP - General 10/19/02 09/12/13 [address] [address] documented as of this encounter
--- OUTSIDE RECORDS SUMMARY | 2022-04-30 15:27 | XMS_ITS | Encounter Summary ---
:1980 Author Organization [facility] Address [address] [place] [address] Care Team Providers Name Role Phone Pedro Burt MD Primary Care Provider Reason for Visit Reason Onset Date Comments Formulary Issue 04/01/2010 3 pages faxed from [facility] uniform form for pres. drug prior auth. req and formul darryl exceptions Encounter Details Date Type Department Care Team Description 04/01/2010 Telephone [facility] Pedro Burt MD Formulary Issue ([address] [place] [address] [address] pages faxed from [address] uniform form for pres. [place] [id number] and formulary [phone] (Wo rk) exceptions) Social History Tobacco Use [...] I will fax form back with pt's [facility] ID # [id number] and close theencounter as it is redundant. Lashell Verma CMA L SPONGE MAKING MACHINE OPERATOR Telephone Encounter - Silvana Farrell - 04/01/2010 10:09 AM CST [address] uniform form for pres. drug prior auth. req and formulary exceptions. [facility]Review Dept. [phone] fax number. Silvana Farrell L SPONGE MAKING MACHINE OPERATOR documented in this encounter Plan of Treatment Not on filedocumented as of this encounter Visit Diagnoses Not on filedocumented in this encounter Care Teams Disciplinary Hearing Officer Relationship Specialty Start Date End Date Pedro Burt MD PCP - General 10/19/02 09/12/13 [address] [place] [address] documented as of this encounter
--- OUTSIDE RECORDS SUMMARY | 2022-04-30 15:27 | XMS_ITS | Encounter Summary ---
:1980 Author Organization [facility] Address [address] [place] [address] Care Team Providers Name Role Phone Pedro Burt MD Primary Care Provider Reason for Visit Reason Comments UTI Encounter Details Date Type Department Care Team Description 05/12/2009 Office Visit [facility] Sheri Quevedo PA-C Urinary Tract [place] [facility] MEDICAL Infection, Site not [address] [place] [address] CTR Specified ([place] [address] Dx) [address] [place], [place] [address] (Wo rk) Social History [...] Comments Blood Pressure 90/64 05/12/2009 6:57 PM BRANDING SPECIALIST Pulse 100 05/12/2009 6:57 PM BRANDING SPECIALIST Temperature 37.1 ??C (98.8 ??F) 05/12/2009 6:57 PM BRANDING SPECIALIST Respiratory Rate 18 05/12/2009 6:57 PM BRANDING SPECIALIST Oxygen Saturation 96% 05/12/2009 6:57 PM BRANDING SPECIALIST Inhaled Oxygen Concentration - - Weight - - Height - - Body Mass Index - - documented in this encounter Progress Notes Sheri Quevedo - 05/12/2009 9:52 PM BRANDING SPECIALIST Quick Note: Discussed with patient. DING SPECIALIST Sheri Quevedo - 05/12/2009 9:48 AM CST [...] or sooner if worsen. Sheri Quevedo PA-C DING SPECIALIST documented in this encounter Plan of Treatment Not on filedocumented as of this encounter Procedures Procedure Name Priority Date/Time Associated Diagnosis Comme joe ZZCL U/A, W/O Routine 05/12/2009 7:04 PM Urinary Tract Results for this MICRO, NON AUTO BRANDING SPECIALIST Infection, Site not proce dure are in Specified the results section. documented in this encounter Results (ABNORMAL) Urine Test [[id number]] (05/12/2009 7:04 PM BRANDING SPECIALIST) [facility] Method Time Signature Source urine [facility] Color Urine brown [facility] Appearance Urine cloudy [facility] Glucose negative Neg mg/dL [facility] Bilirubin Urine negative Neg [facility] Ketones negative neg - neg [facility] mg/dL Specific [place] 1.030 1.003 - [facility] Urine 1.035 [...] Organization Address City/State/ZIP Code Phon e Number [place] [facility] [address] [place] [address] [facility] documented in this encounter Visit Diagnoses Diagnosis Urinary tract infection, site not specif ied - Primary documented in this encounter Care Teams Custom Shop Worker Relationship Specialty Start Date End Date Pedro Burt MD PCP - General 10/19/02 09/12/13 [address] [id number] documented as of this encounter
--- OUTSIDE RECORDS SUMMARY | 2022-04-30 15:27 | XMS_ITS | Encounter Summary ---
:1980 Author Organization [facility] Address [address] [place] [address] Care Team Providers Name Role Phone Pedro Burt MD Primary Care Provider Reason for Visit Reason Onset Date Comments Refill Request 03/18/2010 patient asking for r efill on her ensure- strawberry Encounter Details Date Type Department Care Team Description 03/18/2010 Refill [facility] Perdo Burt MD Refill Request (patient Clinic [address] asking for refill on her [address] [place] [address] [place] ensure- strawberry ) [place] [phone] Social History Tobacco Use Types Packs/Day Years [...] Pharmacy calling- ensure is not covered through [place] unless pt is on tube feedings, or [...] route to PCP. Also- sent pt a [employer] message to inform her that she is needing to get a appt. Scheduled for an annual pe/pap, fasting labs. Jesús Pacheco RN documented in this encounter Plan of Treatment Not on filedocumented as of this encounter Visit Diagnoses Diagnosis Weight loss - Primary Loss of weight documented in this encounter Care Teams Airplane Pilot Helper Relationship Specialty Start Date End Date Pedro Burt MD PCP - General 10/19/02 09/12/13 [address] [address] documented as of this encounter
--- OUTSIDE RECORDS SUMMARY | 2022-04-30 15:27 | XMS_ITS | Encounter Summary ---
:1980 Author Organization [facility] Address [address] [place] [address] Care Team Providers Name Role Phone Pedro Burt MD Primary Care Provider Reason for Visit Reason Onset Date Comments Erroneous encounter-disregard 03/18/2010 this is a duplicate message. Encounter Details Date Type Department Care Team Description 03/18/2010 [facility] Pedro Burt MD Erroneous Clinic [place] [address] [place] [address] encounter-disregard [address] [facility] (this is a d... [place], [place] [address] [phone] (Wo rk) Social History Tobacco Use Types [...] cause documented in this encounter Care Teams Educational Aide Relationship Specialty Start Date End Date Pedro Burt MD PCP - General 10/19/02 09/12/13 [address] [facility] [place] [address] documented as of this encounter
--- OUTSIDE RECORDS SUMMARY | 2022-04-30 15:28 | XMS_ITS | Encounter Summary ---
:1980 Author Organization [facility] Address [address] [place] [address] Care Team Providers Name Role Phone Pedro Burt MD Primary Care Provider Reason for Visit Reason Onset Date Comments Refill Request 03/05/2009 vicodin Encounter Details Date Type Department Care Team Description 03/05/2009 Refill [facility] Pedro Burt MD Refill Request (vicodin) Clinic [address] [place] [address] [phone] Social History Tobacco Use Types Packs/Day Years [...] unspecified documented in this encounter Care Teams Gas Plant Dispatcher Relationship Specialty Start Date End Date Pedro Burt MD PCP - General 10/19/02 09/12/13 [address] [facility] [place] [address] documented as of this encounter
--- OUTSIDE RECORDS SUMMARY | 2022-04-30 15:28 | XMS_ITS | Encounter Summary ---
:1980 Author Organization [facility] Address [address] [place] [address] Care Team Providers Name Role Phone Pedro Burt MD Primary Care Provider Reason for Visit Reason Onset Date Comments Refill Request 02/15/2009 Encounter Details Date Type Department Care Team Description 02/14/2009 MyC Refill [facility] Vickie Burt MD Refill Request [place] [address] [place] [address] (W ork) [address] [phone] Social History Tobacco Use Types Packs/Day Years [...] - 02/15/2009 12:41 PM CDT Message from [employer]: Jewell Garciabarry would like a refill of the following medications: VICODIN ES 7.5-750 MG OR TABS [Pedro Burt MD] Preferred pharmacy: [facility] Comment: documented in this encounter Plan of Treatment Not on filedocumented as of this encounter Visit Diagnoses Diagnosis Thoracic or lumbosacral neuritis or radi culitis, unspecified - Primary documented in this encounter Care Teams Research Support Specialist Relationship Specialty Start Date End Date Pedro Burt MD PCP - General 10/19/02 09/12/13 [address] [address] documented as of this encounter
--- OUTSIDE RECORDS SUMMARY | 2022-04-30 15:28 | XMS_ITS | Encounter Summary ---
:1980 Author Organization [place] Address [address] [place] [address] Care Team Providers Name Role Phone Pedro Burt MD Primary Care Provider Reason for Visit Reason Onset Date Comments Erroneous encounter-disregard 10/26/2008 Encounter Details Date Type Department Care Team Description 10/25/[address] [facility] Erroneous [facility] [place] [address] [place] [address] encounter-disregard [address] [place] [phone] (Wo rk) Social History [...] - 10/26/2008 8:08 AM CDT Message from Team Apart: Jewell Vegas Fausto would like a refill of the following medications: VICODIN 5-500 MG OR TABS [Pedro Burt MD] Preferred pharmacy: [facility] Comment: Hey Dr. Burt its Jewell!! Hope you are doing good!! Hey I have a question [place] in [place] and I have about 15 vicodin left and do not want to run out up there is there, wondering if you could refill my perscription I know its alex early but I do not want to be in pain and be all the way up there. Let me know k or call [phone] Jewell Navarrete documented in this encounter Plan of Treatment Not on filedocumented as of this encounter Visit Diagnoses Diagnosis Thoracic or lumbosacral neuritis or radi culitis, unspecified - Primary documented in this encounter Care Teams Labor Expediter Relationship Specialty Start Date End Date Pedro Burt MD PCP - General 10/19/02 09/12/13 [address] [address] documented as of this encounter
--- OUTSIDE RECORDS SUMMARY | 2022-04-30 15:28 | XMS_ITS | Encounter Summary ---
:1980 Author Organization [place] Address [address] [place] [address] Care Team Providers Name Role Phone Pedro Burt MD Primary Care Provider Reason for Visit Reason Onset Date Comments Refill Request 10/25/2008 Vicodin Encounter Details Date Type Department Care Team Description 10/25/2008 Refill [facility] Pedro Burt MD Refill Request (Vicodin) Clinic [address] [address] [phone] Social History Tobacco Use Types Packs/Day Years [...] 10/26/2008 8:11 AM CDT Pt [facility] additional [facility] requesting Vicodin refill early. CL primary [...] Primary documented in this encounter Care Teams Oceanography Professor Relationship Specialty Start Date End Date Pedro Burt MD PCP - General 10/19/02 09/12/13 [address] [id number] documented as of this encounter
--- OUTSIDE RECORDS SUMMARY | 2022-04-30 15:28 | XMS_ITS | Encounter Summary ---
:1980 Author Organization [place] Address [address] [place] [address] Care Team Providers Name Role Phone Pedro Burt MD Primary Care Provider Reason for Visit Reason Onset Date Comments Refill Request 01/07/2009 Vicodin Encounter Details Date Type Department Care Team Description 01/06/2009 MyC Refill [facility] Pedro Burt MD Refill Request Clinic [place] [address] Cook (Vicodin) [address] [place] [phone] (Wo rk) Social History Tobacco Use Types [...] 01/07/2009 8:24 AM CDT CL- Please see ClickOn message below Last OV: 06/25/08 Reason for visit: back pain Date last filled: 12/17/08 #40 Unable to fill PSO Eliz Squires RN Telephone Encounter - Eliz Squires - 01/07/2009 8:07 AM CDT Message from OpDemand: Jewell Ascencion Lambert would like a refill [...] unspecified documented in this encounter Care Teams Patent Clerk Relationship Specialty Start Date End Date Pedro Burt MD PCP - General 10/19/02 09/12/13 [address] [id number] documented as of this encounter
--- OUTSIDE RECORDS SUMMARY | 2022-04-30 15:28 | XMS_ITS | Encounter Summary ---
:1980 Author Organization [place] Address [address] [place] [address] Care Team Providers Name Role Phone Pedro Burt MD Primary Care Provider Danette Shepherd MD Primary Care Provider Reba Veliz DO Unavailable [phone] Jairon Greene MD Unavailable [facility] Primary Care Provider [phone] Encounter Details Date Type Department Care Team Description 02/27/2009 [facility] Pedro Burt MD CONSULTATION (Primary Clinic [place] [address] [place] [address]) [address] [place] [address] [phone] (Wo rk) Social History Tobacco Use Types [...] Primary documented in this encounter Care Teams Warp Doffer Relationship Specialty Start Date End Date Pedro Burt MD PCP - General 10/19/02 09/12/13 [address] [place] [address] Danette Shepherd MD PCP - General Family Practice 09/13/13 12/16/21 [facility] [address] [place] [address] Rosette Hurt PCP - General 12/17/21 [place] [address] [place] [address] Reba Veliz Assigned OBGYN Provider 03/15/20 07/06/20 DO Silvina [address] [place] [address] [address] [place] [address] Jairon Greene, Assigned Neuroscience 03/15/20 10/26/20 Provider [address] [facility] [address] [place] [address] documented as of this encounter
--- OUTSIDE RECORDS SUMMARY | 2022-04-30 15:28 | XMS_ITS | Encounter Summary ---
:1980 Author Organization [place] Address [address] [place] [address] Care Team Providers Name Role Phone Pedro Burt MD Primary Care Provider Reason for Referral Specialty Diagnoses / Procedures Referred By Contact Refer red To Contact Pedro Burt MD [address] [place] [address] Referral ID Status Reason Start Date Expiration Date Visits Requ ested Visits Authorized Encounter Details Date Type Department Care Team Description 03/01/2009 Orders Only [facility] Pedro Burt MD DIAGNOSIS NOT YET Clinic [place] [address] [address] DEFINED (Primary Dx) [address] [place], [place] [address] Social History Tobacco Use Types [...] Primary documented in this encounter Care Teams Firearms Specialist Relationship Specialty Start Date End Date Pedro Burt MD PCP - General 10/19/02 09/12/13 [address] [address] documented as of this encounter
--- OUTSIDE RECORDS SUMMARY | 2022-04-30 15:28 | XMS_ITS | Encounter Summary ---
:1980 Author Organization [place] Address [address] [place] [address] Care Team Providers Name Role Phone Pedro Burt MD Primary Care Provider Reason for Visit Reason Comments Work Comp Pre-Op Exam Encounter Details Date Type Department Care Team Description 02/21/2009 Office Visit [facility] Pedro Burt MD Preop General Physical Exam (Primary Dx) ; Clinic [place] [address] [address] Dysuria; [address] [place] [address] [phone] Social History Tobacco Use Types Packs/Day Years [...] Dwight Ruiz - 02/21/2009 1:06 PM CDT [facility] [address] [place] [address] PRE-OP EVALUATION: Today's date: 02/21/2009 Jewell Lambert (: 1980) presents for pre-operative evaluation assessment as requested by . She requires evaluation and anesthesia risk assessment prior to undergoing surgery/procedure for proposed procedure: L1-2 fusion, artificial disks L3-4 Date of Surgery/ Procedure: 02/27/09 Time of Surgery/ Procedure: 8:00 AM Hospital/Surgical Facility: [facility] Fax number for surgical facility: Primary Physician: [...] MICRO IF POSITIVE (02/21/2009 1:08 PM CDT) [facility] Method Time Signature Color Urine Yellow [facility] Appearance Urine Clear [facility] Glucose Urine Negative NEG mg/dL [facility] Bilirubin Urine Negative NEG [facility] Ketones Urine Negative NEG mg/dL [facility] Specific [place] 1.020 1.003 - [place] Urine 1.035 [facility] Blood Urine Negative NEG [facility] pH Urine 8.0 (H) 5.0 - 7.0 [place] pH [facility] Protein Albumin Negative NEG mg/dL [place] Urine [facility] Urobilinogen 0.2 0.2 - 1.0 [place] Urine EU/dL [facility] Nitrite Urine Negative NEG [facility] Leukocyte Negative NEG [place] Esterase Urine [facility] Source Midstream [place] Urine [facility] Specimen Anatomical Collection Method Collection Time Receive d Time (Source) Location / / Volume Laterality 02/21/2009 1:08 PM 9 1:11 CDT PM CDT Pedro Burt MD LABORATORY Performing Organization Address [facility]/ZIP [facility] Phon e Number [address] [address] [facility] HGB (02/21/2009 1:07 PM CDT) P athologist Signature Hemoglobin 14.3 11.7 - 15.7 [facility] g/dL [facility] Specimen Anatomical Collection Method Collection Time Receive d Time (Source) Location / / Volume Laterality 02/21/2009 1:07 PM 9 1:10 CDT PM CDT Pedro Burt MD LABORATORY Performing Organization Address [facility] Phon e Number [address] [address] [facility] documented in this encounter Visit Diagnoses Diagnosis Preop general physical exam - Primary Other specified pre-operative examinatio n Dysuria Contraception Unspecified contraceptive management documented in this encounter Care Teams Soldering Machine Feeder Relationship Specialty Start Date End Date Pedro Burt MD PCP - General 10/19/02 09/12/13 [address] [address] documented as of this encounter
--- OUTSIDE RECORDS SUMMARY | 2022-04-30 15:28 | XMS_ITS | Encounter Summary ---
:1980 Author Organization [place] Address [address] [place] [address] Care Team Providers Name Role Phone Pedro Burt MD Primary Care Provider Reason for Visit Reason Onset Date Comments Refill Request 01/22/2009 vicodin Encounter Details Date Type Department Care Team Description 01/21/2009 MyC Refill [facility] Pedro Burt MD Refill Request Clinic [place] [address] Cook (vicodin) [address] [place] [phone] (Wo rk) Social History Tobacco Use Types [...] none, 08/30 and 08/29 Pt went to [place] for UTI FYI. Ruthy Echols RN Telephone Encounter - Ruthy Echols - 01/22/2009 12:16 PM CDT Message from Bridestory: Jewell Ascencion Lambert would like a refill of the following medications: VICODIN ES 7.5-750 MG OR TABS [Pedro Burt MD] Pref[facility] pharmacy: [facility] Comment: documented in this encounter Plan of Treatment Not on filedocumented as of this encounter Visit Diagnoses Diagnosis Thoracic or lumbosacral neuritis or radi culitis, unspecified documented in this encounter Care Teams Aerodynamics Teacher Relationship Specialty Start Date End Date Pedro Burt MD PCP - General 10/19/02 09/12/13 [address] [address] documented as of this encounter
--- OUTSIDE RECORDS SUMMARY | 2022-04-30 15:28 | XMS_ITS | Encounter Summary ---
:1980 Author Organization [place] Address [address] [place] [address] Care Team Providers Name Role Phone Pedro Burt MD Primary Care Provider Reason for Visit Reason Onset Date Comments Refill Request 12/17/2008 Vicodin Encounter Details Date Type Department Care Team Description 12/16/2008 MyC Refill [facility] Pedro Burt MD Refill Request Clinic [place] [address] [place] (Vicodin) [address] [place] [phone] (Wo rk) Social History Tobacco Use Types [...] - 12/17/2008 9:14 AM CDT Please see Blueknow message, she is requesting to go back on Vicodin (a stronger dose than in the past), states the oxycontin is too strong for her. Please advise. Last OV: 06/25/08 Reason for visit: back pain Date last filled: 11/23/08 #60 Unable to fill PSO Eliz Squires RN Telephone Encounter - Eliz Squires - 12/17/2008 9:10 AM CDT Message from [employer]: Jewell Ascencion Lambert would like a refill of the following medications: VICODIN 5-500 MG OR TABS [Pedro Burt MD] [facility] Comment: Hey Dr. Burt! So Dr. Sauceda [...] need something for my back. Thanks, Jewell Mrash I hear my mom is coming to see you!! documented in this encounter Plan of Treatment Not on filedocumented as of this encounter Visit Diagnoses Diagnosis Thoracic or lumbosacral neuritis or radi culitis, unspecified - Primary documented in this encounter Care Teams Grain Broker And Market Operator Relationship Specialty Start Date End Date Pedro Burt MD PCP - General 10/19/02 09/12/13 [address] [address] documented as of this encounter
--- OUTSIDE RECORDS SUMMARY | 2022-04-30 15:28 | XMS_ITS | Encounter Summary ---
:1980 Author Organization [place] Address [address] [place] [address] Care Team Providers Name Role Phone Pedro Burt MD Primary Care Provider Reason for Visit Reason Comments UTI Encounter Details Date Type Department Care Team Description 01/21/2009 Office Visit [facility] Sheri Quevedo PA-C Dysuria (Primary Dx) [facility] [address] [place] [address] [address] [place], [place] [address] (Wo rk) Social History [...] the penis when you bathe. Developed by [employer] Published by [employer]. Last modified: 2006-08-23 Last reviewed: 2006-09-21 This content is reviewed periodically and is subject to change as new health information becomes available. The information is intended to inform and educate and is not a replacement for medical evaluation, advice, diagnosis or treatment by a healthcare professional. Adult Health Advisor 2007.1 Index Adult Health Advisor 2007.1 Credits ?? 2008 [employer] [facility] and/or one of its affiliates. All Rights [...] Primary documented in this encounter Care Teams Dust Mixer Relationship Specialty Start Date End Date Pedro Burt MD PCP - General 10/19/02 09/12/13 [address] [address] documented as of this encounter
--- OUTSIDE RECORDS SUMMARY | 2022-04-30 15:28 | XMS_ITS | Encounter Summary ---
:1980 Author Organization [place] Address [address] [place] [address] Care Team Providers Name Role Phone Pedro Burt MD Primary Care Provider Reason for Visit Reason Onset Date Comments Formulary Issue 01/10/2009 jason-D not covere d Encounter Details Date Type Department Care Team Description 01/10/2009 Telephone [facility] Pedro Burt MD Formulary Issue [place] [address] [address] (jason-D not covered) [address] [place] [address] [place] [address] [phone] (Wo rk) Social History Tobacco Use Types [...] unspecified documented in this encounter Care Teams Milk Drying Machine Operator Relationship Specialty Start Date End Date Pedro Burt MD PCP - General 10/19/02 09/12/[address] [place] [address] documented as of this encounter
--- OUTSIDE RECORDS SUMMARY | 2022-04-30 15:28 | XMS_ITS | Encounter Summary ---
:1980 Author Organization [place] Address [address] [place] [address] Care Team Providers Name Role Phone Pedro Burt MD Primary Care Provider Reason for Visit Reason Onset Date Comments Formulary Issue 11/27/2008 Ensure, NOT COVERED Encounter Details Date Type Department Care Team Description 11/27/2008 Telephone [facility] Pedro Burt MD Formulary Issue [facility] [address] [place] [address] (Ensure, NOT COVERED) [address] [place] [phone] (Wo rk) Social History Tobacco Use Types [...] wish to fill this prescription. Janel Tavera CREDIT RISK MANAGER Telephone Encounter - Rachel Tavera - 11/27/2008 9:58 AM CDT Pharmacy Benefit Information: Provider: BRITTANY Fax#- ID#- [id number] Medication/SIG: [facility] Insurance Requires Prior Authorization - Insurance states [...] on filedocumented in this encounter Care Teams Certified Professional Coder Relationship Specialty Start Date End Date Pedro Burt MD PCP - General 10/19/02 09/12/13 [address] [address] documented as of this encounter
--- OUTSIDE RECORDS SUMMARY | 2022-04-30 15:28 | XMS_ITS | Encounter Summary ---
:1980 Author Organization [place] Address [address] [place] [address] Care Team Providers Name Role Phone Pedro Burt MD Primary Care Provider Reason for Visit Reason Onset Date Comments Refill Request 11/01/2008 Vicodin Encounter Details Date Type Department Care Team Description 11/01/2008 Refill [facility] Pedro Burt MD Refill Request (Vicodin) Clinic [address] [address] [phone] Social History Tobacco Use Types Packs/Day Years [...] anxiety Date last filled: 10/17/08 Pt sent Nurixhart message, was refused, [place] please advise, if refused NEED TO CHANGE AMOUNT TO 0 AND WRITE DENIED IN SIG SO PHARMACY GETS NOTIFIED Comment: Hey Dr. Burt its Jewell!! Hope you are doing good!! Hey I have a question im going [place] this weekend to visit my family in [place] and I have about 15 vicodin left and do not want to run out up there is there, wondering if you could refill my perscription I know its alex early but I do not want to be in pain and be all the way up there. Let me know k or call [phone] Jewell Navarrete RN documented in this encounter Plan of Treatment Not on filedocumented as of this encounter Visit Diagnoses Diagnosis Thoracic or lumbosacral neuritis or radi culitis, unspecified documented in this encounter Care Teams Vehicle Operator Technician Relationship Specialty Start Date End Date Pedro Burt MD PCP - General 10/19/02 09/12/13 [address] [address] documented as of this encounter
--- OUTSIDE RECORDS SUMMARY | 2022-04-30 15:28 | XMS_ITS | Encounter Summary ---
:1980 Author Organization [place] Address [address] [place] [address] Care Team Providers Name Role Phone Pedro Burt MD Primary Care Provider Reason for Visit Reason Onset Date Comments MyChart Communication 03/06/2009 vicodin Encounter Details Date Type Department Care Team Description [facility]/06[facility]urt MD MyChart Communication [place] [address] Cook (vicodin) [address] [place] [phone] Social History Tobacco Use Types Packs/Day Years [...] - 03/06/2009 4:56 PM CDT Message from Lumenpulse: Jewell Lambert would like a refill of the following medications: VICODIN ES 7.5-750 MG OR TABS [Pedro Burt MD] Preferred pharmacy: [facility] Comment: documented in this encounter Plan of Treatment Not on filedocumented as of this encounter Visit Diagnoses Diagnosis Thoracic or lumbosacral neuritis or radi culitis, unspecified documented in this encounter Care Teams Seismograph Operator Helper Relationship Specialty Start Date End Date Pedro Burt MD PCP - General 10/19/02 09/12/13 [address] [address] documented as of this encounter
--- OUTSIDE RECORDS SUMMARY | 2022-04-30 15:28 | XMS_ITS | Encounter Summary ---
:1980 Author Organization [place] Address [address] [place] [address] Care Team Providers Name Role Phone Pedro Burt MD Primary Care Provider Reason for Visit Reason Onset Date Comments Refill Request 11/23/2008 vicodin Encounter Details Date Type Department Care Team Description 11/23/[address] [facility] Pedro Burt MD Refill Request (vicodin) Clinic [address] [address] [phone] Social History Tobacco Use Types Packs/Day Years [...] unspecified documented in this encounter Care Teams Forensic Ballistics Expert Relationship Specialty Start Date End Date Pedro Burt MD PCP - General 10/19/02 09/12/13 [address] [address] documented as of this encounter
--- OUTSIDE RECORDS SUMMARY | 2022-04-30 15:28 | XMS_ITS | Encounter Summary ---
:1980 Author Organization [place] Address [address] [place] [address] Care Team Providers Name Role Phone Pedro Burt MD Primary Care Provider Reason for Visit Reason Onset Date Comments Formulary Issue 12/14/2008 tazorac is NOT cover ed Encounter Details Date Type Department Care Team Description 12/14/2008 Telephone [facility] Pedro Burt MD Formulary Issue Clinic [address] (tazorac is NOT [address] [place] [address] covered) [place] [address] [phone] (Wo rk) Social History Tobacco Use Types [...] on filedocumented in this encounter Care Teams Workers Compensation Administrator Relationship Specialty Start Date End Date Pedro Burt MD PCP - General 10/19/02 09/12/13 [address] [address] documented as of this encounter
--- OUTSIDE RECORDS SUMMARY | 2022-04-30 15:29 | XMS_ITS | Encounter Summary ---
:1980 Author Organization [place] Address [address] [place] [address] Care Team Providers Name Role Phone Pedro [...] Department Care Team Description 02/02/2008 Office Visit [facility] Pedro Burt MD Chronic Rhinitis; Clinic [place] [address] [address] Folliculitis [address] [place] [address] [phone] (Wo rk) Social History Tobacco Use Types [...] 02/02/2008 2:30 PM CDT >> KIMBERLY CASTILLO [facility] Feb 02, 2008 2:42 PM Jewell [...] follicles documented in this encounter Care Teams Continuing Education Specialist Relationship Specialty Start Date End Date Pedro Burt MD PCP - General 10/19/02 09/12/13 [address] [address] documented as of this encounter
--- OUTSIDE RECORDS SUMMARY | 2022-04-30 15:29 | XMS_ITS | Encounter Summary ---
:1980 Author Organization [place] Address [address] [place] [address] Care Team Providers Name Role Phone Pedro Burt MD Primary Care Provider Reason for Visit Reason Comments RECHECK med check Encounter Details Date Type Department Care Team Description 08/13/2004 Office Visit [facility] Gabi Delgado MD HYPERACT (Primary [phone] [facility]) [place], [place] SERVICE [address] [address] [facility] [phone] [address] [place], [place] [address] (Wo rk) Social History Tobacco [...] Comments Blood Pressure 118/74 08/13/2004 11:00 AM ROSTER CLERK Pulse 76 08/13/2004 11:00 AM ROSTER CLERK Temperature - - Respiratory Rate - - Oxygen Saturation - - Inhaled Oxygen Concentration - - Weight 51.3 kg (113 lb) 08/13/2004 11:00 AM ROSTER CLERK Height 166.4 cm (5' 5.5) 08/13/2004 11:00 AM ROSTER CLERK Body Mass Index 18.52 08/13/2004 11:00 AM ROSTER CLERK documented in this encounter Progress Notes [place] [...] or call in 2 weeks for recheck. ER CLERK documented in this encounter Nursing Notes 08/13/2004 [...] ivity documented in this encounter Care Teams Crab Fisher Relationship Specialty Start Date End Date Pedro Burt MD PCP - General 10/19/02 09/12/13 [address] [address] documented as of this encounter
--- OUTSIDE RECORDS SUMMARY | 2022-04-30 15:29 | XMS_ITS | Encounter Summary ---
:1980 Author Organization [facility] Address [address] [place] [address] Care Team Providers Name Role Phone Pedro Burt MD Primary Care Provider Reason for Referral - Closed Specialty Diagnoses / Procedures Referred By Contact Refer red To Contact Diagnoses Thoracic or lumbosacral neuritis or radiculitis, unspecified Pedro Burt MD [address] [place] [address] Referral ID Status Reason Start Date Expiration Date Visits Requ ested Visits Authorized [id number] Closed 01/19/2007 05/23/2011 1 1 Reason for Visit Reason Comments Back Pain w/c pt was turning and lifti ng at the same time at work and wretched her back Encounter Details Date Type Department Care Team Description 01/19/2007 Office Visit [facility] Pedro Burt MD LUMBOSACRAL NEURITIS Clinic [address] NOS (Primary Dx) [address] [place] [address] [phone] Social History Tobacco Use Types Packs/Day Years [...] 01/19/2007 4:32 PM CDT Jewell Lambert Employer: [employer] Date of Treatment: 01.19.2007 Date of Accident: 01.14.2007 History: Pt, otherwise healthy, twisted her mid-torso and lifted 30 lb weight at the same time, experiencing sudden and immediate low back pain that has progressed to include pain into left lower leg. Witnessed by work labor gang supervisor. EXAMINATION: Skin: negative Eyes: negative Ears/Nose/Throat: [...] by spinal surgeons (Dr. Miguelito Jordan at [facility]). Other restrictions: None FOLLOW-UP Follow up [...] Procedure Name Priority Date/Time Associated Diagnosis Comme [facility] ORTHOPEDIC CARE MGR Routine 06/05/2010 Thoracic or lumbosac ral REFERRAL neuritis or radiculitis, unspecified documented in this encounter Results CONSULT ORTHO CARE MGR (06/05/2010) Narrative This result has an attachment that is no t available. Pedro Burt MD REFERRAL documented in this encounter Visit Diagnoses Diagnosis Thoracic or lumbosacral neuritis or radi culitis, unspecified - Primary documented in this encounter Care Teams Mine Exploration Engineer Relationship Specialty Start Date End Date Pedro Burt MD PCP - General 10/19/02 09/12/13 [address] [id number] documented as of this encounter
--- OUTSIDE RECORDS SUMMARY | 2022-04-30 15:29 | XMS_ITS | Encounter Summary ---
:1980 Author Organization [address] [place] [address] Care Team Providers Name Role Phone Pedro Burt MD Primary Care Provider Encounter Details Date Type Department Care Team Description 09/15/2004 Orders Only [facility] [place] DI AGNOSIS NOT YET Clinic Gabi Delgado MD DEFINED (Primary Dx) [address] [place], [place] SERVICE [address] [address] [facility] [phone] [address] [place], [place] [address] (Wo rk) Social History Tobacco [...] Primary documented in this encounter Care Teams Sales Advisor Relationship Specialty Start Date End Date Pedro Burt MD PCP - General 10/19/02 09/12/13 [address] [id number] documented as of this encounter
--- OUTSIDE RECORDS SUMMARY | 2022-04-30 15:29 | XMS_ITS | Encounter Summary ---
:1980 Author Organization [place] Address [address] [place] [address] Care Team Providers Name Role Phone Pedro Burt MD Primary Care Provider Encounter Details Date Type Department Care Team Description 02/14/2007 Telephone [facility] Vickie Burt MD [address] [phone] Social History Tobacco Use Types Packs/Day Years [...] - 02/16/2007 9:04 AM CDT I sent [employer] message asking her to fax a new [...] on filedocumented in this encounter Care Teams Manager House Relationship Specialty Start Date End Date Pedro Burt MD PCP - General 10/19/02 09/12/13 [address] [id number] documented as of this encounter
--- OUTSIDE RECORDS SUMMARY | 2022-04-30 15:29 | XMS_ITS | Encounter Summary ---
:1980 Author Organization [facility] Address [address] [place] [address] Care Team Providers Name Role Phone Pedro Burt MD Primary Care Provider Reason for Visit Reason Onset Date Comments Medication Request 06/25/2008 pt seen today- askin g for rx ensure to be faxed in Encounter Details Date Type Department Care Team Description 06/25/2008 Telephone [facility] Pedro Burt MD Medication Request (pt Clinic [place] [address] [address] seen today- asking for [address] [place] [address] rx ensure to be faxed [facility] [place] in) [phone] (Wo rk) Social History Tobacco Use Types [...] rx to [facility]. Thanks. Jesús Pacheco R.N.. E RIGGER documented in this encounter Plan of Treatment Not on filedocumented as of this encounter Visit Diagnoses Diagnosis Weight loss, severe - Primary Loss of weight documented in this encounter Care Teams Line Haul Owner Operator Relationship Specialty Start Date End Date Pedro Burt MD PCP - General 10/19/02 09/12/13 [address] [id number] documented as of this encounter
--- OUTSIDE RECORDS SUMMARY | 2022-04-30 15:29 | XMS_ITS | Encounter Summary ---
:1980 Author Organization [facility] Address [address] [place] [address] Care Team Providers Name Role Phone Pedro Burt MD Primary Care Provider Reason for Visit Reason Onset Date Comments Refill Request 08/21/2008 Vicodin Encounter Details Date Type Department Care Team Description 08/21/2008 Refill [facility] Pedro Burt MD Refill Request (Vicodin) Clinic [address] [address] [phone] Social History Tobacco Use Types Packs/Day Years [...] Lumbosacral Neuritis Last filled: 07/25/2008 Janel Tavera CIVIL PREPAREDNESS COORDINATOR documented in this encounter Plan of Treatment Not on filedocumented as of this encounter Visit Diagnoses Diagnosis Thoracic or lumbosacral neuritis or radi culitis, unspecified documented in this encounter Care Teams Senior Foreman Relationship Specialty Start Date End Date Pedro Burt MD PCP - General 10/19/02 09/12/13 [address] [id number] documented as of this encounter
--- OUTSIDE RECORDS SUMMARY | 2022-04-30 15:29 | XMS_ITS | Encounter Summary ---
:1980 Author Organization [place] Address [address] [place] [address] Care Team Providers Name Role Phone Pedro Burt MD Primary Care Provider Reason for Referral - Closed Specialty Diagnoses / Procedures Referred By Contact Refer red To Contact Diagnoses Abdominal pain, generalized Pedro Burt MD [address] [place] [address] Referral ID Status Reason Start Date Expiration Date Visits Requ ested Visits Authorized [id number] Closed 02/29/2004 05/23/2011 1 1 Reason for Visit Reason Onset Date Comments CT Results 02/14/2004 ultrasound results Encounter Details Date Type Department Care Team Description 02/14/2004 Telephone [facility] Pedro Burt MD CT Results (ultrasound Clinic [place] [address] results) [address] [facility] [place] [address] [phone] (Wo rk) Social History Tobacco Use Types [...] 8:36 AM Orders created and faxed to [facility], they will call patient to schedule. (Chi in referrals) >> GADIEL IYER [facility] Feb 28, 2004 6:31 PM Pt. agreed to have this done again, Chi or [place] does she need another referral, please let her know. Gadiel Iyer RN. >> JEANINE FREEDMAN [facility] Feb 28, 2004 12:41 PM LM with pt's mother for her to call back for Dr. Burt's message. Jeanine Freedman RN >> GUILLERMINA KELSEY [facility] Feb 19, 2004 5:22 PM LMOM to call gold. Guillermina Kelsey RN >> PEDRO BURT [facility] Feb 18, 2004 2:59 PM sure, it is the best possible test >> JEANINE FREEDMAN [facility] Feb 18, 2004 2:42 PM Spoke with the pt. who stated she did not actually have the endoscopy done because she pulled the tube out lack of cooperation. She said she would be willing to try the endoscopy again if you agree. Jeanine Freedman RN >> JEANINE FREEDMAN [facility] Feb 18, 2004 1:24 PM LM with male at home number for pt. to call back. Jeanine Freedman RN >> DANG ALTAMIRANO [facility] Feb 14, 2004 4:48 PM NA Dang Altamirano RN >> PEDRO BURT [facility] Feb 14, 2004 4:32 PM please have pt d/w GI, as since she had upper GI endoscopy, they should have seen an ulcer if therewas one. The only other condition would be a barium swallow, and I don't think it would be any better than actually having looked by endoscopy *(which was also negative) >> JEANINE FREEDMAN [facility] Feb 14, 2004 4:28 PM Spoke to pt. to give her results of abd. ultrasound as normal. Pt. states that the ultrasound was suppose to be looking at/for an ulcer, pt. states the [facility] tech said they can't see ulcers with [...] Primary documented in this encounter Care Teams Steam Gigger Relationship Specialty Start Date End Date Pedro Burt MD PCP - General 10/19/02 09/12/13 [address] [id number] documented as of this encounter
--- OUTSIDE RECORDS SUMMARY | 2022-04-30 15:29 | XMS_ITS | Encounter Summary ---
:1980 Author Organization [facility] Address [address] [place] [address] Care Team Providers Name Role Phone Pedro Burt MD Primary Care Provider Encounter Details Date Type Department Care Team Description 09/15/2004 Emergency room Yuniel Childress MD EMERGENCY PHYSIC IADEXTER [facility] [address] [facility] [address] [place] [address] (Wo rk) Social History Tobacco Use Types [...] [id number] _ YUNIEL CHILDRESS MD [place]: Document: [id number] [place], [place] Name: MR#: DELORES JEWELL [facility] -25 EMERGENCY ROOM ENCOUNTER Page 2 of 2 LCN: CATARINO DSC: 09/15/2004 [place], [place] Name: MR#: JEWELL ESTRELLA [id number] : Admit Date: Account #: 1980 09/15/2004 [id number] Doctor: YUNIEL CHILDRESS MD EMERGENCY ROOM ENCOUNTER Page 1 of 2 documented in this encounter Plan of Treatment Not on filedocumented as of this encounter Visit Diagnoses Not on filedocumented in this encounter Care Teams Nail Puller Relationship Specialty Start Date End Date Pedro Burt MD PCP - General 10/19/02 09/12/13 [address] [id number] documented as of this encounter
--- OUTSIDE RECORDS SUMMARY | 2022-04-30 15:29 | XMS_ITS | Encounter Summary ---
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 Dwight Perry LPN Telephone Encounter - Dwight Perry - 02/08/2007 2:59 PM CDT Left message on machine for patient to call back. No forms at [facility], did she receive them? Dwight Perry LPN Telephone Encounter - Janell Sandoval - 02/04/2007 3:22 PM CDT LM on for pt to call back. Completed FMLA forms at [facility] awaiting destination. Santana Sandoval CMA documented in this encounter Plan of Treatment Not on filedocumented as of this encounter Visit Diagnoses Not on filedocumented in this encounter Care Teams Industrial X Ray Operator Relationship Specialty Start Date End Date Pedro Burt MD PCP - General 10/19/02 09/12/13 [address] [id number] documented as of this encounter
--- OUTSIDE RECORDS SUMMARY | 2022-04-30 15:29 | XMS_ITS | Encounter Summary ---
:1980 Author Organization [facility] Address [address] [place] [address] Care Team Providers Name Role Phone Pedro Burt MD Primary Care Provider Reason for Visit Reason Comments Bj Encounter Details Date Type Department Care Team Description 07/22/2004 Office Visit [facility] Anthony Del Castillo DEF ICIT W HYPERACT (Primary Dx); [facility] [place] MAU Rubalcava ERRONEOUS ENCOUNTER--DISREGARD [address] [place] [address] [phone] Social History Tobacco Use Types Packs/Day Years [...] Comments Blood Pressure 120/70 07/22/2004 11:45 AM MARZIPAN MAKER Pulse - - Temperature - - Respiratory Rate - - Oxygen Saturation - - Inhaled Oxygen Concentration - - Weight 52.6 kg (116 lb) 07/22/2004 11:45 AM MARZIPAN MAKER Height - - Body Mass Index 18.72 04/30/2003 4:00 PM MARZIPAN MAKER documented in this encounter Patient Instructions Patient Qfrdkrblhhhz12/01/2005 11:45 AM MARZIPAN MAKER You have Adult Onset Attention Deficit Disorder Here's how you can help beat this: #1 Concerta 18 mg, one pill orally daily #2 Return to clinic to see Dr. Glen Cooper in 4 weeks. IPAN MAKER documented in this encounter Progress Notes Anthony [...] ENCOUNTER--DISREGARD documented in this encounter Care Teams Psychological Operations Officer Relationship Specialty Start Date End Date Pedro Burt MD PCP - General 10/19/02 09/12/13 [address] [id number] documented as of this encounter
--- OUTSIDE RECORDS SUMMARY | 2022-04-30 15:29 | XMS_ITS | Encounter Summary ---
:1980 Author Organization [facility] Address [address] [place] [address] Care Team Providers Name Role Phone Pedro Burt MD Primary Care Provider Reason for Visit Reason Onset Date Comments Refill Request 10/16/2008 Vicodin Encounter Details Date Type Department Care Team Description 10/16/[address] [facility] Pedro Burt MD Refill Request (Vicodin) Clinic [address] [address] [phone] Social History Tobacco Use Types Packs/Day Years [...] unspecified documented in this encounter Care Teams Patient Liaison Relationship Specialty Start Date End Date Pedro Burt MD PCP - General 10/19/02 09/12/13 [address] [id number] documented as of this encounter
--- OUTSIDE RECORDS SUMMARY | 2022-04-30 15:29 | XMS_ITS | Encounter Summary ---
:1980 Author Organization [facility] Address [address] [place] [address] Care Team Providers Name Role Phone Pedro Burt MD Primary Care Provider Encounter Details Date Type Department Care Team Description 12/12/2003 Orders Only [facility] Pedro Burt MD DIAGNOSIS NOT YET Clinic [place] [address] [place] [address] DEFINED (Primary Dx) [address] [place], [place] [address] [phone] Social History Tobacco Use Types Packs/Day Years [...] Procedure Name Priority Date/Time Associated Diagnosis Comme [facility] UGI ENDOSCOPY, SIMPLE Routine 12/12/2003 DIAGNOSIS NOT [...] Primary documented in this encounter Care Teams Incident Response Manager Relationship Specialty Start Date End Date Pedro Burt MD PCP - General 10/19/02 09/12/13 [address] [facility] [place] [address] documented as of this encounter
--- OUTSIDE RECORDS SUMMARY | 2022-04-30 15:29 | XMS_ITS | Encounter Summary ---
:1980 Author Organization [facility] Address [address] [place] [address] Care Team Providers Name Role Phone Pedro Burt MD Primary Care Provider Reason for Visit Reason Comments Referral for ultrasound Encounter Details Date Type Department Care Team Description 02/07/2004 Office Visit [facility] Pedro Burt MD ABDOMINAL PAIN EPIGASTRIC (Primary Dx); Clinic [place] [address] ESOPHAGEAL REFLUX [address] [place] [address] [phone] Social History Tobacco Use Types Packs/Day Years [...] GI endoscopy with Dr. Leona Funes of [facility] when she was too uncomfortable with [...] per orders. Pt also [facility]. Return office visit [...] reflux documented in this encounter Care Teams Orthophotography Technician Relationship Specialty Start Date End Date Pedro Burt MD PCP - General 10/19/02 09/12/13 [address] [id number] documented as of this encounter
--- OUTSIDE RECORDS SUMMARY | 2022-04-30 15:29 | XMS_ITS | Encounter Summary ---
:1980 Author Organization [place] Address [address] [place] [address] Care Team Providers Name Role Phone Pedro Burt MD Primary Care Provider Encounter Details Date Type Department Care Team Description 11/22/2003 Telephone [facility] Vickie Burt MD [place] [address] [place] [address] [place] [phone] Social History Tobacco Use Types Packs/Day Years [...] on filedocumented in this encounter Care Teams Mold Finisher Relationship Specialty Start Date End Date Pedro Burt MD PCP - General 10/19/02 09/12/13 [address] [place] [address] documented as of this encounter
--- OUTSIDE RECORDS SUMMARY | 2022-04-30 15:29 | XMS_ITS | Encounter Summary ---
:1980 Author Organization [place] Address [address] [place] [address] Care Team Providers Name Role Phone Pedro Burt MD Primary Care Provider Reason for Visit Reason Onset Date Comments Refill Request 07/24/2008 VICODIN Encounter Details Date Type Department Care Team Description 07/24/2008 Refill [facility] Pedro Burt MD Refill Request (VICODIN) Clinic [address] [address] [phone] Social History Tobacco Use Types Packs/Day Years [...] Rx faxed to [facility]. Lashell Verma CMA REPAIRER Telephone Encounter - Lashell Verma - 07/25/2008 1:34 PM CST LMOM for pt to cb. Which pharmacy would she like RX faxed to? Rx is at [facility]. Lashell Verma CMA REPAIRER Telephone Encounter - Kvng Santacruz 07/24/2008 5:19 PM CST Can wait till primary is in Sakshi Santacruz M.D REPAIRER Telephone Encounter - Marce Altamirano - 07/24/2008 10:30 AM CST Last OV: 06/25/08 Reason for visit: THORACIC AND LUMBARSACRAL NEURITIS, anxiety Date last filled: 06/25/08 Carmel Marinelli gone, routed to , please approve, print sign and fax Marce Altamirano RN REPAIRER documented in this encounter Plan of Treatment Not on filedocumented as of this encounter Visit Diagnoses Diagnosis Thoracic or lumbosacral neuritis or radi culitis, unspecified documented in this encounter Care Teams Supervisor Pipe Finishing Relationship Specialty Start Date End Date Pedro Burt MD PCP - General 10/19/02 09/12/13 [address] [id number] documented as of this encounter
--- OUTSIDE RECORDS SUMMARY | 2022-04-30 15:29 | XMS_ITS | Encounter Summary ---
:1980 Author Organization [place] Address [facility] [place] [address] Care Team Providers Name Role Phone Pedro Burt MD Primary Care Provider Encounter Details Date Type Department Care Team Description 07/22/2004 Office Visit [facility] [place], [facility] Gabi Delgado MD HYPERACT [facility] [address] [facility] [place], [place] SERVICE [address] [address] [facility] [phone] [address] [place], [place] [address] (Wo rk) Social History Tobacco Use Types [...] to effect if needed. Glen Cooper MD [facility] ESTATE PORTFOLIO MANAGER documented in this encounter Plan of Treatment Not on filedocumented as of this encounter Visit Diagnoses Diagnosis Attention deficit disorder with hyperact ivity(314.01) - Primary Attention deficit disorder with hyperact ivity documented in this encounter Care Teams Conference Organizer Relationship Specialty Start Date End Date Pedro Burt MD PCP - General 10/19/02 09/12/13 [address] [address] documented as of this encounter
--- OUTSIDE RECORDS SUMMARY | 2022-04-30 15:29 | XMS_ITS | Encounter Summary ---
:1980 Author Organization [place] Address [address] [place] [address] Care Team Providers Name Role Phone Pedro Burt MD Primary Care Provider Reason for Visit Reason Comments Back Pain x1 year Pt slipped and fell on the ice last night Refill Request vicodin - does not seem to b e working on pain at night Encounter Details Date Type Department Care Team Description 06/25/2008 Office Visit [facility] Pedro Burt MD Thoracic or Lumbosacral Neuritis or Radi culitis, Unspecified; Clinic [address] Generalized Anxiety Disorder [address] [place] [address] [phone] Social History Tobacco Use Types Packs/Day Years [...] Comments Blood Pressure 100/62 06/25/2008 3:00 PM SIGNAL OPERATOR LINGUIST Pulse 62 06/25/2008 3:00 PM SIGNAL OPERATOR LINGUIST Temperature 36.6 ??C (97.9 ??F) 06/25/2008 3:00 PM SIGNAL OPERATOR LINGUIST Respiratory Rate - - Oxygen Saturation - - Inhaled Oxygen Concentration - - Weight 46.7 kg (103 lb) 06/25/2008 3:00 PM SIGNAL OPERATOR LINGUIST Height 165.1 cm (5' 5) 06/25/2008 3:00 PM SIGNAL OPERATOR LINGUIST Body Mass Index 17.14 06/25/2008 3:00 PM SIGNAL OPERATOR LINGUIST documented in this encounter Progress Notes Pedro [...] cymbalta (20 to 60mg) per hs orders. AL OPERATOR LINGUIST documented in this encounter Nursing Notes 06/25/2008 [...] disorder documented in this encounter Care Teams Stringed Instrument Assembler Relationship Specialty Start Date End Date Pedro Burt MD PCP - General 10/19/02 09/12/13 [address] [address] documented as of this encounter
--- OUTSIDE RECORDS SUMMARY | 2022-04-30 15:29 | XMS_ITS | Encounter Summary ---
:1980 Author Organization [facility] Address [address] [place] [address] Care Team Providers Name Role Phone Pedro Burt MD Primary Care Provider Reason for Visit Reason Onset Date Comments Refill Request 09/24/2008 Vicodin Encounter Details Date Type Department Care Team Description 09/24/2008 Refill [facility] Pedro Burt MD Refill Request (Vicodin) Clinic [address] [address] [phone] Social History Tobacco Use Types Packs/Day Years [...] Please hand fax with signature to [facility] [phone] Kimberly Putnam CMA documented in this encounter Plan of Treatment Not on filedocumented as of this encounter Visit Diagnoses Diagnosis Thoracic or lumbosacral neuritis or radi culitis, unspecified documented in this encounter Care Teams Fermenter Champagne Relationship Specialty Start Date End Date Pedro Burt MD PCP - General 10/19/02 09/12/13 [address] [address] documented as of this encounter
--- OUTSIDE RECORDS SUMMARY | 2022-04-30 15:29 | XMS_ITS | Encounter Summary ---
:1980 Author Organization [facility] Address [address] [place] [address] Care Team Providers Name Role Phone Pedro Burt MD Primary Care Provider Encounter Details Date Type Department Care Team Description 09/15/2004 Historic Results INTERFACED REPORT Eldon Childress MD [facility] [address] [facility] [address] [place], [place] [address] (Wo rk) Social History Tobacco Use Types [...] Component Value Ref Test Analysis Performed At [facility] Range Method Time Signature MCV 84 [...] reflex to micro (09/15/2004 9:20 PM CDT) [facility] Method Time Signature Source Midstream MISYS Urine Color Urine Yellow MISYS Appearance Urine Clear MISYS Glucose Urine Negative NEG mg/dL MISYS Bilirubin Urine Negative NEG MISYS Ketones Urine Negative NEG mg/dL MISYS Specific [place] 1.025 1.001 - MISYS Urine 1.035 Blood [...] on filedocumented in this encounter Care Teams Credit Risk Officer Relationship Specialty Start Date End Date Pedro Burt MD PCP - General 10/19/02 09/12/13 [address] [address] documented as of this encounter
--- OUTSIDE RECORDS SUMMARY | 2022-04-30 15:29 | XMS_ITS | Encounter Summary ---
:1980 Author Organization [place] Address [address] [place] [address] Care Team Providers Name Role Phone Pedro Burt MD Primary Care Provider Reason for Visit Reason Onset Date Comments Refill Request 09/24/2004 Concerta Encounter Details Date Type Department Care Team Description 09/24/2004 Refill M [facility] Glen Cooper MD Refill Request Clinic [facility] (Concerta) [address] [place], [place] [address] [facility] [address] 640 [place], [place] [address] (Wo rk) Social History Tobacco Use Types [...] 09/24/2004 3:18 PM CDT Rx at front office representative. Left mssg on machine. Dwight Perry LPN [...] call when ready to be picked up [phone] documented in this encounter Plan of Treatment Not on filedocumented as of this encounter Visit Diagnoses Diagnosis Attention deficit disorder with hyperact ivity(314.01) - Primary Attention deficit disorder with hyperact ivity documented in this encounter Care Teams Railroad Maintenance Clerk Relationship Specialty Start Date End Date Pedro Burt MD PCP - General 10/19/02 09/12/13 [address] [id number] documented as of this encounter
--- OUTSIDE RECORDS SUMMARY | 2022-04-30 15:29 | XMS_ITS | Encounter Summary ---
:1982 Author Organization [place] Address [facility] [place] [address] Care Team Providers Name Role Phone Pedro Burt MD Primary Care Provider Encounter Details Date Type Department Care Team Description 08/27/2004 Office Visit [facility] Glen Cooper, NO SHOW (Primary Dx) [place] [address] [place], [place] SERVICE [address] [address] [facility] [phone] [address] [place], [place] [address] (Wo rk) Social History Tobacco [...] Primary documented in this encounter Care Teams Casino Enforcement Agent Relationship Specialty Start Date End Date Pedro Burt MD PCP - General 10/19/02 09/12/13 [address] [address] documented as of this encounter
--- OUTSIDE RECORDS SUMMARY | 2022-04-30 15:29 | XMS_ITS | Encounter Summary ---
:1980 Author Organization [place] Address [address] [place] [address] Care Team Providers Name Role Phone Pedro Burt MD Primary Care Provider Reason for Visit Reason Onset Date Comments Refill Request 02/16/2008 gen vicodin Encounter Details Date Type Department Care Team Description 02/16/2008 Refill [facility] Pedro Burt MD Refill Request (gen [facility] [place] [address] vicodin) [address] [place] [address] [phone] Social History Tobacco Use Types Packs/Day Years [...] unspecified documented in this encounter Care Teams Motorcycle Service Technician Relationship Specialty Start Date End Date Pedro Burt MD PCP - General 10/19/02 09/12/13 [address] [id number] documented as of this encounter
--- OUTSIDE RECORDS SUMMARY | 2022-04-30 15:29 | XMS_ITS | Encounter Summary ---
:1980 Author Organization [place] Address [address] [place] [address] Care Team Providers Name Role Phone Pedro Burt MD Primary Care Provider Reason for Visit Reason Onset Date Comments Refill Request 04/25/2008 vicodin Encounter Details Date Type Department Care Team Description 04/25/2008 Refill [facility] Pedro Burt MD Refill Request (vicodin) [address] [place] [phone] Social History Tobacco Use Types Packs/Day Years [...] vicodin #45 on 02/15/08 Tiara Navarrete RN REAMER documented in this encounter Plan of Treatment Not on filedocumented as of this encounter Visit Diagnoses Diagnosis Thoracic or lumbosacral neuritis or radi culitis, unspecified documented in this encounter Care Teams Manager Chemistry Relationship Specialty Start Date End Date Pedro Burt MD PCP - General 10/19/02 09/12/13 7[address] [facility] [place] [id number] documented as of this encounter
--- OUTSIDE RECORDS SUMMARY | 2022-04-30 15:29 | XMS_ITS | Encounter Summary ---
:1982 Author Organization [place] Address [address] [place] [address] Care Team Providers Name Role Phone Pedro Burt MD Primary Care Provider Reason for Visit Reason Onset Date Comments Medication Request 03/22/2007 [place] Encounter Details Date Type Department Care Team Description 03/22/2007 Telephone [facility] Pedro Burt MD Medication Request ([facility]) Clinic [address] [phone] (Wo rk) Social History [...] for headache pain. Please call her at [phone]. documented in this encounter Plan of Treatment Not on filedocumented as of this encounter Visit Diagnoses Diagnosis Thoracic or lumbosacral neuritis or radi culitis, unspecified - Primary Generalized anxiety disorder documented in this encounter Care Teams Fuel House Attendant Relationship Specialty Start Date End Date Pedro Burt MD PCP - General 10/19/02 09/12/13 [address] [id number] documented as of this encounter
--- OUTSIDE RECORDS SUMMARY | 2022-04-30 15:29 | XMS_ITS | Encounter Summary ---
:1980 Author Organization [place] Address [address] [place] [address] Care Team Providers Name Role Phone Pedro Burt MD Primary Care Provider Reason for Visit Reason Onset Date Comments Refill Request 06/06/2008 vicodin Encounter Details Date Type Department Care Team Description 06/06/2008 Refill [facility] Pedro Burt MD Refill Request (vicodin) Clinic [address] [address] [phone] Social History Tobacco Use Types Packs/Day Years [...] AM CST Pt notified Marce Altamirano RN ET AND BUILDING DECORATOR Telephone Encounter - Pedro Burt - 06/06/2008 9:36 AM CST Should be seen for future scripting ET AND BUILDING DECORATOR Telephone Encounter - Marce Altamirano - 06/06/2008 8:53 AM CST Last OV: 02/02/08 Reason for visit: chronic rhinitis, folliculitis Date last filled: 04/24/08 Not PSO, routed Marce Altamirano RN ET AND BUILDING DECORATOR documented in this encounter Plan of Treatment Not on filedocumented as of this encounter Visit Diagnoses Diagnosis Thoracic or lumbosacral neuritis or radi culitis, unspecified - Primary documented in this encounter Care Teams Naval Inspector Relationship Specialty Start Date End Date Pedro Burt MD PCP - General 10/19/02 09/12/13 [address] [id number] documented as of this encounter
--- OUTSIDE RECORDS SUMMARY | 2022-04-30 15:29 | XMS_ITS | Encounter Summary ---
:1980 Author Organization [place] Address [address] [place] [address] Care Team Providers Name Role Phone Pedro Burt MD Primary Care Provider Reason for Visit Reason Comments Anxiety pt states that she's waking up in the night having anxiety attacks Encounter Details Date Type Department Care Team Description 03/16/2007 Office Visit [facility] Pedro Burt MD GENERALIZED ANXIETY DIS; [address] TOBACCO USE DISORDER [address] [place] [address] 201477 Social History Tobacco Use Types Packs/Day Years [...] disorder documented in this encounter Care Teams Nightclub Manager Relationship Specialty Start Date End Date Pedro Burt MD PCP - General 10/19/02 09/12/13 [address] [id number] documented as of this encounter
--- OUTSIDE RECORDS SUMMARY | 2022-04-30 15:29 | XMS_ITS | Encounter Summary ---
:1980 Author Organization [place] Address [address] [place] [address] Care Team Providers Name Role Phone Pedro Burt MD Primary Care Provider Reason for Visit Reason Comments UTI Encounter Details Date Type Department Care Team Description 09/05/2008 Office Visit [facility] Sheri Quevedo PA-C Urinary Tract [place] [facility] Infection, Site not [address] [place] [address] CTR Specified ([place] [address] Dx) [address] [place], [place] [address] (Wo rk) Social History [...] in this encounter Results (ABNORMAL) Urine Test [08220.003] (09/05/2008 4:23 PM CDT) [facility] Method Time Signature Source midstream [facility] Color Urine patrick [facility] Appearance Urine hazy [facility] Glucose negative Neg mg/dL [facility] Bilirubin Urine negative Neg [facility] Ketones negative neg - neg [facility] mg/dL Specific [place] 1.025 1.003 - [facility] Urine 1.035 Blood Urine non-hemolyzed Neg [facility] moderate pH Arterial 6.5 5.0 - 7.0 [facility] Protein Urine negative neg - neg [facility] mg/dL Urobilinogen 0.2 0.2 - 1.0 [facility] Urine EU/dL Nitrite Urine negative Neg [facility] Leukocyte 3+ Neg [facility] Esterase Urine Sheri Quevedo PA-C LABORATORY Performing Organization Address City/State/ZIP Code [facility] e Number [place] [facility] [address] [place] [address] [facility] documented in this encounter Visit Diagnoses Diagnosis Urinary tract infection, site not specif ied - Primary documented in this encounter Care Teams Button Sewer Relationship Specialty Start Date End Date Pedro Burt MD PCP - General 10/19/02 09/12/13 [address] [id number] documented as of this encounter
--- OUTSIDE RECORDS SUMMARY | 2022-04-30 15:29 | XMS_ITS | Encounter Summary ---
:1980 Author Organization [place] Address [address] [place] [address] Care Team Providers Name Role Phone Pedro Burt MD Primary Care Provider Reason for Visit Reason Onset Date Comments Medication Request 03/13/2008 Requesting Tazorac Derm Problem 03/13/2008 Acne and folliculiti s Encounter Details Date Type Department Care Team Description 03/13/2008 [facility] Pedro Burt MD Medication Request Clinic [address] (Requesting Tazorac ); [phone] [place] [address] [place] [facility] Problem (Acne and [place], [place] folliculi tis) [address] [phone] (Wo rk) Social History Tobacco Use Types [...] and she would check with her pharmacy [facility] afternoon Only need to call if problems [phone] Jeanine Freedman RN documented in this encounter Plan of Treatment Not on filedocumented as of this encounter Visit Diagnoses Diagnosis Acne - Primary Other acne documented in this encounter Care Teams Geospatial Applications Developer Relationship Specialty Start Date End Date Pedro Burt MD PCP - General 10/19/02 09/12/13 [address] [address] documented as of this encounter
--- OUTSIDE RECORDS SUMMARY | 2022-04-30 15:30 | XMS_ITS | Encounter Summary ---
:1980 Author Organization [place] Address [address] [place] [address] Care Team Providers Name Role Phone Pedro Burt MD Primary Care Provider Reason for Visit Reason Comments Care Encounter Details Date Type Department Care Team Description 03/05/2003 Office Visit [facility] [place] SUPERVIS N [address] [facility] MD Stephen PREG (Primary Dx) [place] [address] [place] [address] Social History Tobacco Use Types [...] Primary documented in this encounter Care Teams Pleat Taper Relationship Specialty Start Date End Date Pedro Burt MD PCP - General 10/19/02 09/12/13 [address] [address] documented as of this encounter
--- OUTSIDE RECORDS SUMMARY | 2022-04-30 15:30 | XMS_ITS | Encounter Summary ---
:1980 Author Organization [place] Address [address] [place] [address] Care Team Providers Name Role Phone Pedro Burt MD Primary Care Provider Encounter Details Date Type Department Care Team Description 03/16/2003 Results Only [facility] [place] [address] [place] [address] Social History Tobacco Use [...] Procedure Name Priority Date/Time Associated Diagnosis Comme [facility] OB LIMITED, 1 Routine 03/16/2003 11:32 AM R esults for this OR MORE FETUSES CDT procedure ar e in the results section. documented in this encounter Results SONO LTD IN DELIV ROOM (03/16/2003 11:32 AM CDT) [facility] Method Time Signature Radiology OB WORKSHEET/SECOND AND [...] on filedocumented in this encounter Care Teams Teacher Ballet Relationship Specialty Start Date End Date Pedro Burt MD PCP - General 10/19/02 09/12/13 [address] [address] documented as of this encounter
--- OUTSIDE RECORDS SUMMARY | 2022-04-30 15:30 | XMS_ITS | Encounter Summary ---
:1980 Author Organization [place] Address [address] [place] [address] Care Team Providers Name Role Phone Pedro Burt MD Primary Care Provider Reason for Visit Reason Comments Refill Request Encounter Details Date Type Department Care Team Description 11/22/2003 Refill [facility] Vickie Burt MD Refill Request [place] [address] [place], [place] [address] [address] [place] [address] [place], [place] [address] [phone] Social History Tobacco Use Types Packs/Day Years [...] on filedocumented in this encounter Care Teams Cold Header Relationship Specialty Start Date End Date Pedro Burt MD PCP - General 10/19/02 09/12/13 7968 [place] [address] documented as of this encounter
--- OUTSIDE RECORDS SUMMARY | 2022-04-30 15:30 | XMS_ITS | Encounter Summary ---
:1980 Author Organization [place] Address [address] [place] [address] Care Team Providers Name Role Phone Pedro Burt MD Primary Care Provider Reason for Visit Reason Comments Refill Request Encounter Details Date Type Department Care Team Description 10/01/[address] [facility] Marnie Jain, Refill Request Kristine MARTINS [address] [place] [address] [place] [address] [phone] Social History Tobacco Use Types Packs/Day Years Used Date Smoking Tobacco: Every Day Cigarettes 5 Comments: less than 1/2 pack per day Alcohol Use Standard Drinks/Week Comments No 0 (1 standard drink = 0.6 oz pure alcoho l) Sex Assigned at Date Recorded Not on file documented as of this encounter Miscellaneous Notes Telephone Encounter - 10/01/2003 11:59 PM CDT >> TJ JAIN Mon October 01, 2003 3:41 PM I filled for [...] filedocumented in this encounter Care Teams Supervisor Modern Languages Relationship Specialty Start Date End Date Pedro Burt MD PCP - General 10/19/02 09/12/13 [address] [id number] documented as of this encounter
--- OUTSIDE RECORDS SUMMARY | 2022-04-30 15:30 | XMS_ITS | Encounter Summary ---
:1980 Author Organization [place] Address [address] [place] [address] Care Team Providers Name Role Phone Pedro Burt MD Primary Care Provider Reason for Visit Reason Comments Care thick, green mucous discharg e Encounter Details Date Type Department Care Team Description 03/15/2003 Telephone [facility] [place] Pre yohan Care (Maik polk MD green mucous discharge) [address] [address] Social History Tobacco Use Types [...] Per MD - pt to go to [facility] L&D to be checked. [facility] notified and records faxed. Ptinstructed to go to [facility] now. Zeus Joy RN documented in this encounter Plan of Treatment Not on filedocumented as of this encounter Visit Diagnoses Not on filedocumented in this encounter Care Teams Transmission Systems Operator Relationship Specialty Start Date End Date Pedro Burt MD PCP - General 10/19/02 09/12/13 [address] [address] documented as of this encounter
--- OUTSIDE RECORDS SUMMARY | 2022-04-30 15:30 | XMS_ITS | Encounter Summary ---
:1980 Author Organization [place] Address [address] [place] [address] Care Team Providers Name Role Phone Pedro Burt MD Primary Care Provider Reason for Visit Reason Comments Care Encounter Details Date Type Department Care Team Description 04/05/2003 Office Visit [facility] [place] SUPERVIS N [address] Maik Mitchell MD PREG (Marhta Koch) [place] [address] [address] Social History Tobacco Use Types [...] Comments Blood Pressure 130/70 04/05/2003 1:30 PM SYNTHETIC CLOTH BINDING CUTTER Pulse - - Temperature - - Respiratory Rate - - Oxygen Saturation - - Inhaled Oxygen Concentration - - Weight 65.7 kg (144 lb 12 oz) 04/05/2003 1:30 PM SYNTHETIC CLOTH BINDING CUTTER Height - - Body Mass Index 23.36 10/30/2002 2:00 PM CDT documented in this encounter Progress Notes [place] - 01/30/2010 6:19 PM CDT Doing well. HETIC CLOTH BINDING CUTTER documented in this encounter Plan of Treatment Not on filedocumented as of this encounter Visit Diagnoses Diagnosis Supervision of normal first - Primary documented in this encounter Care Teams Catia Designer Relationship Specialty Start Date End Date Pedro Burt MD PCP - General 10/19/02 09/12/13 [address] [address] documented as of this encounter
--- OUTSIDE RECORDS SUMMARY | 2022-04-30 15:30 | XMS_ITS | Encounter Summary ---
:1980 Author Organization [place] Address [address] [place] [address] Care Team Providers Name Role Phone Pedro Burt MD Primary Care Provider Encounter Details Date Type Department Care Team Description 03/06/2003 Results Only [facility] [place] SUPERVIS O THER NORMAL Clinic [place] MD Stephen PREG (Martha evans Dx) [place] [address] [address] Social History Tobacco Use Types [...] Component Value Ref Test Analysis Performed At [facility] Range Method Time Signature Radiology OB [...] Body Movements: Score: 2 Tone: Score: 2 JUANITA([id number]) 7.6 cm Score: 2 Total: 8/8 (borderline [...] Primary documented in this encounter Care Teams Shake Cutter Relationship Specialty Start Date End Date Pedro Burt MD PCP - General 10/19/02 09/12/13 [address] [address] documented as of this encounter
--- OUTSIDE RECORDS SUMMARY | 2022-04-30 15:30 | XMS_ITS | Encounter Summary ---
:1980 Author Organization [place] Address [address] [place] [address] Care Team Providers Name Role Phone Pedro Burt MD Primary Care Provider Reason for Referral - Closed Specialty Diagnoses / Procedures Referred By Contact Refer red To Contact Diagnoses Abdominal pain, generalized Pedro Burt MD [address] [place] [address] Referral ID Status Reason Start Date Expiration Date Visits Requ ested Visits Authorized [id number] Closed 11/14/2003 05/23/2011 1 1 Reason for Visit Reason Comments Refill Request Encounter Details Date Type Department Care Team Description 11/14/2003 Office Visit [facility] Pedro Burt MD ATTN DEFICIT NONHYPERACT; Clinic [place] [address] ABDOMINAL PAIN GENERALIZED [address] [place] [address] [phone] Social History Tobacco Use Types Packs/Day Years [...] Body Mass Index 18.08 04/30/2003 4:00 PM PUSHER OPERATOR documented in this encounter Progress Notes 11/14/2003 2:45 PM CDT SUBJECTIVE: Jewell Lambert 23 year old female presents for ADD diagnosed by psychiatyr as a child. Griselda colvin is now a mother, who will be going to [employer]. She is accompnaied by her mother [...] reactions, pt accepts prescription for CONCERTA per [facility] orders. F/U in 3 weeks fo r reevaluation. 2- Epigastric pain. Pt accepts referral to [facility] for UGI Endoscopy. documented in this [...] generalized documented in this encounter Care Teams Limehouse Worker Relationship Specialty Start Date End Date Pedro Burt MD PCP - General 10/19/02 09/12/13 [address] [address] documented as of this encounter
--- OUTSIDE RECORDS SUMMARY | 2022-04-30 15:30 | XMS_ITS | Encounter Summary ---
:1980 Author Organization [place] Address [address] [place] [address] Care Team Providers Name Role Phone Pedro Burt MD Primary Care Provider Reason for Visit Reason Comments Care PNV Encounter Details Date Type Department Care Team Description 04/12/2003 Office Visit [facility] [place] SUPERVIS N [address] Clinic Maik Mitchell MD PREG (Martha Koch) [place] [address] [address] Social History Tobacco Use Types [...] Comments Blood Pressure 122/70 04/12/2003 8:30 AM PROPERTY MANAGEMENT SUPERVISOR Pulse - - Temperature - - Respiratory Rate - - Oxygen Saturation - - Inhaled Oxygen Concentration - - Weight 64.9 kg (143 lb) 04/12/2003 8:30 AM PROPERTY MANAGEMENT SUPERVISOR Height - - Body Mass Index 23.08 10/30/2002 2:00 PM CDT documented in this encounter Progress Notes [place] - 01/30/2010 6:19 PM CDT Doing well. Induction scheduled. ERTY MANAGEMENT SUPERVISOR documented in this encounter Nursing Notes 04/12/2003 8:30 AM CST >> DEXTER ROBERSON 04/12/2003 8:41 am pt here for PNV, pt is 39 weeks , c/o cotractions last night, no contractions today T.Roberson RMA documented in this encounter Plan of Treatment Not on filedocumented as of this encounter Visit Diagnoses Diagnosis Supervision of normal first - Primary documented in this encounter Care Teams Territory Sales Manager Relationship Specialty Start Date End Date Pedro Burt MD PCP - General 10/19/02 09/12/13 [address] [id number] documented as of this encounter
--- OUTSIDE RECORDS SUMMARY | 2022-04-30 15:30 | XMS_ITS | Encounter Summary ---
:1982 Author Organization [place] Address [address] [place] [address] Care Team Providers Name Role Phone Oliverio Burt MD Primary Care Provider Reason for Visit Reason Comments Patient Inquiry CL ritalin rx, nexium not he lping Encounter Details Date Type Department Care Team Description 11/13/[address] [facility] Oliverio Burt MD Patient Inquiry (CL Clinic [place] [address] ritalin rx, nexium not [address] [facility] [place] [address] (Wo rk) Social History [...] 11/13/2003 at 4:38 PM ------ Message from: MARISAEBL MAZARIEGOS Created: 11/13/2003 at 4:33 PM Regarding: Li-rx rf ritalin--call when ready----[phone]--sec--nexium is not helping chest pain documented in this encounter Plan of Treatment Not on filedocumented as of this encounter Visit Diagnoses Not on filedocumented in this encounter Care Teams Chalk Cutter Relationship Specialty Start Date End Date Oliverio Burt MD PCP - General 10/19/02 09/12/13 [address] [id number] documented as of this encounter
--- OUTSIDE RECORDS SUMMARY | 2022-04-30 15:30 | XMS_ITS | Encounter Summary ---
:1980 Author Organization [place] Address [address] [place] [address] Care Team Providers Name Role Phone Pedro Burt MD Primary Care Provider Reason for Visit Reason Comments Care Encounter Details Date Type Department Care Team Description 02/19/2003 Office Visit [facility] [place] SUPERVIS N [address] [facility] MD Stephen PREG (Primary Dx) [place] [address] [place] [address] Social History Tobacco Use Types [...] Primary documented in this encounter Care Teams Safe Expert Relationship Specialty Start Date End Date Pedro Burt MD PCP - General 10/19/02 09/12/13 [address] [address] documented as of this encounter
--- OUTSIDE RECORDS SUMMARY | 2022-04-30 15:30 | XMS_ITS | Encounter Summary ---
:1980 Author Organization [place] Address [address] [place] [address] Care Team Providers Name Role Phone Pedro Burt MD Primary Care Provider Reason for Visit Reason Comments Care Encounter Details Date Type Department Care Team Description 03/19/2003 Office Visit [facility] Shravan Park SUPERVIS O THER NORMAL [facility] MD Stephen PREG (Primary Dx) [place] [address] [place] [address] Social History Tobacco Use Types [...] Comments Blood Pressure 110/64 03/19/2003 3:45 PM SAND DRIER Pulse - - Temperature - - Respiratory Rate - - Oxygen Saturation - - Inhaled Oxygen Concentration - - Weight 64.4 kg (142 lb) 03/19/2003 3:45 PM SAND DRIER Height - - Body Mass Index 22.92 10/30/2002 2:00 PM CDT documented in this encounter Progress Notes Shravan Park - 01/30/2010 6:19 PM CDT Group B strep done. DRIER documented in this encounter Plan of Treatment Not on filedocumented as of this encounter Procedures Procedure Name Priority Date/Time Associated Diagnosis Comme nts HCL CULTURE, GROUP Routine 03/19/2003 4:49 PM Supervis Other R esults for this B STREP SAND DRIER Normal Preg procedure are i n the results section. documented in this encounter Results GROUP B STREP VAG/RECTAL (03/19/2003 4:49 PM SAND DRIER) Component Value Ref Test Analysis Performed At [facility] gist Range Method Time Signature Specimen [facility] Culture Micro No beta MODENA hemolytic [facility] Streptococcus [facility] Group B isolated Report status FINAL [id number] [facility] Specimen Anatomical Collection Method Collection Time Receive d Time (Source) Location / / Volume Laterality 03/19/2003 4:49 PM 3 4:54 SAND DRIER PM SAND DRIER Shravan Park MD LABORATORY Performing Organization Address City/State/ZIP Code Phon e Number [facility] [id number] [address] [facility] documented in this encounter Visit Diagnoses Diagnosis Supervision of other normal - Primary documented in this encounter Care Teams Cell Reliner Relationship Specialty Start Date End Date Pedro Burt MD PCP - General 10/19/02 09/12/13 [address] [id number] documented as of this encounter
--- OUTSIDE RECORDS SUMMARY | 2022-04-30 15:30 | XMS_ITS | Encounter Summary ---
:1980 Author Organization [place] Address [address] [place] [address] Care Team Providers Name Role Phone Pedro Burt MD Primary Care Provider Reason for Visit Reason Comments Refill Request Encounter Details Date Type Department Care Team Description 11/16/2003 Refill [facility] Marnie Muñoz, Refill Request Kristine MARTINS [address] [place] [address] [place] [address] [phone] Social History Tobacco Use Types Packs/Day Years [...] on filedocumented in this encounter Care Teams Carbon Furnace Operator Helper Relationship Specialty Start Date End Date Pedro Burt MD PCP - General 10/19/02 09/12/13 [address] [id number] documented as of this encounter
--- OUTSIDE RECORDS SUMMARY | 2022-04-30 15:30 | XMS_ITS | Encounter Summary ---
:1980 Author Organization [place] Address [address] [place] [address] Care Team Providers Name Role Phone Pedro Burt MD Primary Care Provider Encounter Details Date Type Department Care Team Description 02/20/2003 Orders Only [facility] SUP ERVIS NORMAL 1ST PREG; [facility] SCREENING NEC [address] [phone] Social History Tobacco Use [...] Date/Time Associated Diagnosis Comme [facility] SONO PREG COMPLETE Routine 02/20/2003 Supervis Normal [...] (18+) Referring Provider: Shravan Park MD Clinic: [facility] Disk: 183 INDICATIONS FOR ULTRASOUND: Present Conditions: Small for gestation (SGA) CLINICAL INFORMATION LMP: [id number] ??sure EDC: 97Dlj00 ??EGA: 31.7wks Previous US: yes Location: [place] ? EDC: 87Fts90 ?correspond ?? MEASUREMENTSm BPD: 7.7cm ??MA: 30w5d [...] screening documented in this encounter Care Teams Laborer Landscape Relationship Specialty Start Date End Date Pedro Burt MD PCP - General 10/19/02 09/12/13 [address] [address] documented as of this encounter
--- OUTSIDE RECORDS SUMMARY | 2022-04-30 15:30 | XMS_ITS | Encounter Summary ---
:1980 Author Organization [place] Address [address] [place] [address] Care Team Providers Name Role Phone Pedro Burt MD Primary Care Provider Reason for Visit Reason Comments Patient Request PA for Concerta Encounter Details Date Type Department Care Team Description 11/22/2003 Telephone [facility] Pedro Burt MD Patient Request (PA for Clinic [place] [address] Concert[address]) [address] [place], [place] [phone] (Wo rk) Social History Tobacco Use Types [...] 11/22/2003 11:59 PM CDT >> KAJAL KIM [facility] Nov 22, 2003 11:54 AM >> CALL RECEIVED. Contact: pt. calling, per insurance, will not cover Concerta until clinic calls w/info. PA [facility] [phone]. I called # and they ok'd med for 1 year from today. Kajal Kim RN documented in this encounter Plan of Treatment Not on filedocumented as of this encounter Visit Diagnoses Not on filedocumented in this encounter Care Teams Travel Nurse Relationship Specialty Start Date End Date Pedro Burt MD PCP - General 10/19/02 09/12/13 7992 [facility] [place] [address] documented as of this encounter
--- OUTSIDE RECORDS SUMMARY | 2022-04-30 15:30 | XMS_ITS | Encounter Summary ---
:1980 Author Organization [place] Address [address] [place] [address] Care Team Providers Name Role Phone Pedro Burt MD Primary Care Provider Reason for Visit Reason Comments Care Encounter Details Date Type Department Care Team Description 03/26/2003 Office Visit [facility] Shravan Park SUPERVIS N [address] [facility] MD Stephen PREG (Primary Dx) [place] [address] [place] [address] Social History Tobacco Use Types [...] Comments Blood Pressure 104/64 03/26/2003 4:00 PM CHILD CARE TEACHER Pulse - - Temperature - - Respiratory Rate - - Oxygen Saturation - - Inhaled Oxygen Concentration - - Weight 64.2 kg (141 lb 8 oz) 03/26/2003 4:00 PM CHILD CARE TEACHER Height - - Body Mass Index 22.84 10/30/2002 2:00 PM CDT documented in this encounter Progress Notes Shravan Park - 01/30/2010 6:19 PM CDT Doing well. D CARE TEACHER documented in this encounter Nursing Notes 03/26/2003 [...] Primary documented in this encounter Care Teams Advisor Advocate Angel Co Founder Relationship Specialty Start Date End Date Pedro Burt MD PCP - General 10/19/02 09/12/13 [address] [address] documented as of this encounter
--- OUTSIDE RECORDS SUMMARY | 2022-04-30 15:30 | XMS_ITS | Encounter Summary ---
:1980 Author Organization [place] Address [address] [place] [address] Care Team Providers Name Role Phone Pedro Burt MD Primary Care Provider Encounter Details Date Type Department Care Team Description 04/02/2003 Orders Only [facility] Shravan Park DIAGNOSIS NOT YET [facility] MD Stephen DEFINED (Prim darryl Dx) [address] [place] [phone] Social History Tobacco Use Types Packs/Day Years [...] Priority Date/Time Associated Diagnosis Comme nts [facility] RESULTS Routine 04/02/2003 DIAGNOSIS NOT Y ET DEFINED documented in this encounter Results [facility] LAB RESULTS (04/02/2003) Specimen (Source) Anatomical Location Collection Method / Collectio n Time Received Time / Laterality Volume 04/02/2003 Narrative This result has an attachment that is no t available. Shravan Park MD LABORATORY documented in this encounter Visit Diagnoses Diagnosis DIAGNOSIS NOT YET DEFINED - Primary documented in this encounter Care Teams Epoxy Specialist Relationship Specialty Start Date End Date Pedro Burt MD PCP - General 10/19/02 09/12/13 [address] [facility] [place] [place] [address] documented as of this encounter
--- OUTSIDE RECORDS SUMMARY | 2022-04-30 15:30 | XMS_ITS | Encounter Summary ---
:1980 Author Organization [place] Address [address] [place] [address] Care Team Providers Name Role Phone Pedro Burt MD Primary Care Provider Reason for Visit Reason Comments Refill Request Encounter Details Date Type Department Care Team Description 08/20/2003 Refill [facility] Marnie Muñoz, Refill Request Kristine MARTINS [address] [place] [address] [place] [address] [phone] Social History Tobacco Use Types Packs/Day Years Used Date Smoking Tobacco: Every Day Cigarettes 5 Comments: less than 1/2 pack per day Alcohol Use Standard Drinks/Week Comments No 0 (1 standard drink = 0.6 oz pure alcoho l) Sex Assigned at Date Recorded Not on file documented as of this encounter Miscellaneous Notes Telephone Encounter - 08/20/2003 11:59 PM CLEAT MAKER >> ZARIA ARROYO WedAug 20, 2003 12:16 PM >> CALL RECEIVED. Contact: Pt.'s last visit was 03/14/03 so I will refill for 1 month and pt. needs to make appt. with Dr. Muñoz for next refill. Pt. advised. documented in this encounter Plan of Treatment Not on filedocumented as of this encounter Visit Diagnoses Not on filedocumented in this encounter Care Teams Lime Supervisor Relationship Specialty Start Date End Date Pedro Burt MD PCP - General 10/19/02 09/12/13 [address] [place] [address] documented as of this encounter
--- OUTSIDE RECORDS SUMMARY | 2022-04-30 15:30 | XMS_ITS | Encounter Summary ---
:1980 Author Organization [place] Address [address] [place] [address] Care Team Providers Name Role Phone Pedro Burt MD Primary Care Provider Encounter Details Date Type Department Care Team Description 04/05/2003 Orders Only [facility] SUP ERVIS NORMAL 1ST PREG; [facility] SCREENING NEC [address] [phone] Social History Tobacco Use [...] Name Priority Date/Time Associated Diagnosis Comme [facility] SONO PREG COMPLETE Routine 04/05/2003 [...] (18+) Referring Provider: Concepcion Park MD Clinic: [facility] Disk: 189 INDICATIONS FOR ULTRASOUND: Present Conditions: third tr-screen (EFW, Bpp, JUANITA, SD ratio ) Small for gestation (SGA). CLINICAL INFORMATION LMP: [id number] ??sure EDC: 83Siw33 ??EGA: 38.0wks Previous US: Yes Location: [place] ? EDC: [id number] ?? correspond ?? MEASUREMENTS BPD: 9.0cm ??MA: [...] screening documented in this encounter Care Teams Registered Sales Assistant Relationship Specialty Start Date End Date Pedro Burt MD PCP - General 10/19/02 09/12/13 [address] [id number] documented as of this encounter
--- OUTSIDE RECORDS SUMMARY | 2022-04-30 15:30 | XMS_ITS | Encounter Summary ---
:1980 Author Organization [place] Address [address] [place] [address] Care Team Providers Name Role Phone Pedro Burt MD Primary Care Provider Encounter Details Date Type Department Care Team Description 03/15/2003 Orders Only [facility] Eag an Shravan Park DIAGNOSIS NOT YET 14[address] [facility] MD Stephen DEFINED (Primary Dx) [...] Priority Date/Time Associated Diagnosis Comme nts [facility]. LAB RESULTS Routine 03/15/2003 [...] Primary documented in this encounter Care Teams Scroll Saw Operator Relationship Specialty Start Date End Date Pedro Burt MD PCP - General 10/19/02 09/12/13 [address] [address] documented as of this encounter
--- OUTSIDE RECORDS SUMMARY | 2022-04-30 15:30 | XMS_ITS | Encounter Summary ---
:1980 Author Organization [place] Address [address] [place] [address] Care Team Providers Name Role Phone Pedro Burt MD Primary Care Provider Reason for Visit Reason Comments Anxiety Encounter Details Date Type Department Care Team Description 03/14/2003 Office Visit [facility] [place], ANXIETY ST ATE NOS (Primary Dx); [facility] [place] Gregorio Moore MD DEPRESSIVE DISORDER NEC [address] [place] [address] [place] [address] [address] [place] [address] Social History Tobacco Use Types [...] athologist Signature TSH 0.81 0.4 - 5.0 [facility] mU/L CLINIC LAB Specimen Anatomical Collection Method Collection Time Receive d Time (Source) Location / / Volume Laterality 03/14/2003 10:51 03/14/2003 AM CDT 10:56 AM CDT Gregorio Muñoz MD LABORATORY Performing Organization Address City/State/ZIP Code Phon e Number [facility] [address] [place] [address] [facility] documented in this encounter Visit Diagnoses Diagnosis Anxiety state, unspecified - Primary Depressive disorder, not elsewhere class ified documented in this encounter Care Teams Design Transferrer Relationship Specialty Start Date End Date Pedro Burt MD PCP - General 10/19/02 09/12/13 [address] [address] documented as of this encounter
--- OUTSIDE RECORDS SUMMARY | 2022-04-30 15:30 | XMS_ITS | Encounter Summary ---
:1980 Author Organization [place] Address [address] [place] [address] Care Team Providers Name Role Phone Pedro Burt MD Primary Care Provider Encounter Details Date Type Department Care Team Description 03/14/2003 Orders Only [facility] SUP ERVIS NORMAL 1ST PREG; [facility] POOR GRTH-ANTEPART [address] [phone] Social History Tobacco Use [...] Procedure Name Priority Date/Time Associated Diagnosis Comme [facility] SONO PREG COMPLETE Routine 03/14/2003 Supervis Normal 1s t Results for this (METRO) Preg procedure are in the Poor results section . Grth-Antepart documented in this encounter Results SONO PREG COMPLETE (METRO) (03/14/2003) Anatomical Region Laterality Modality Ultrasound Impressions 03/14/2003 Complete transabdominal obstetric ultrasound. Gross survey within normal limits. Reass uring biophysical profile, ??normal ammiotic fluid volume, satisfactory interval growth. . CONCEPCION PARK M.D. Narrative 03/14/2003 ULTRASOUND - COMPLETE OB (18+) Referring Provider: Concepcion Park MD Clinic: [facility] Disk: 186 INDICATIONS FOR ULTRASOUND: Present Conditions: third tr-screen (EFW, Bpp, JUANITA, SD ratio ) Small for gestation (SGA). CLINICAL INFORMATION LMP: [id number] ??sure EDC: 10Hir17 ??EGA: 34.9wks Previous US: yes Location: [place] ? EDC: 42Psj99 ?? correspond ?? MEASUREMENTS BPD: 8.5cm ??MA: [...] complication documented in this encounter Care Teams Cake Decorator Relationship Specialty Start Date End Date Pedro Burt MD PCP - General 10/19/02 09/12/13 [address] [id number] documented as of this encounter
--- OUTSIDE RECORDS SUMMARY | 2022-04-30 15:30 | XMS_ITS | Encounter Summary ---
:1980 Author Organization [place] Address [address] [place] [address] Care Team Providers Name Role Phone Pedro Burt MD Primary Care Provider Reason for Visit Reason Comments Refill Request Encounter Details Date Type Department Care Team Description 08/20/2003 Refill [facility] Marnie Muñoz, Refill Request Kristine MARTINS [address] [place] [address] [place] [address] [phone] Social History Tobacco Use Types Packs/Day Years Used Date Smoking Tobacco: Every Day Cigarettes 5 Comments: less than 1/2 pack per day Alcohol Use Standard Drinks/Week Comments No 0 (1 standard drink = 0.6 oz pure alcoho l) Sex Assigned at Date Recorded Not on file documented as of this encounter Miscellaneous Notes Telephone Encounter - 08/20/2003 11:59 PM SHELL PLATER >> JENNYFER BALTAZAR [facility] October 01, 2003 2:51 PM >> CALL RECEIVED. Contact: documented in this encounter Plan of Treatment Not on filedocumented as of this encounter Visit Diagnoses Not on filedocumented in this encounter Care Teams Cleaner Greaser Relationship Specialty Start Date End Date Pedro Burt MD PCP - General 10/19/02 09/12/13 [address] [place] [address] documented as of this encounter
--- OUTSIDE RECORDS SUMMARY | 2022-04-30 15:30 | XMS_ITS | Encounter Summary ---
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 Further recommendations to her: [...] reflux documented in this encounter Care Teams Radio Broadcaster Relationship Specialty Start Date End Date Pedro Burt MD PCP - General 10/19/02 09/12/13 [address] [address] documented as of this encounter
--- OUTSIDE RECORDS SUMMARY | 2022-04-30 15:30 | XMS_ITS | Encounter Summary ---
:1980 Author Organization [facility] Address [address] [place] [address] Care Team Providers Name Role Phone Pedro Burt MD Primary Care Provider Reason for Visit Reason Comments Post Exam Encounter Details Date Type Department Care Team Description 04/30/2003 Office Visit [facility] Shravan Park [facility] MD Stephen FOLLOW-UP (Pr imary Dx) [place] [address] [place] [address] Social History Tobacco Use Types [...] Sign Reading Time Taken Comments Blood Pressure 108/80 04/30/2003 4:00 PM TRADE ANALYST Pulse - - Temperature - - Respiratory Rate - - Oxygen Saturation - - Inhaled Oxygen Concentration - - Weight 58.1 kg (128 lb) 04/30/2003 4:00 PM TRADE ANALYST Height 167.6 cm (5' 6) 04/30/2003 4:00 PM TRADE ANALYST Body Mass Index 20.66 04/30/2003 4:00 PM TRADE ANALYST documented in this encounter Progress Notes 04/30/2003 4:00 PM TRADE ANALYST Patient is here for a 6-week checkup. She had a of a viable girl, weight 6 pounds 1 5 oz.,NameTaylor, with none complications. Since delivery, she has not been breast feeding. She has no signs of infection, bleeding or other complications. She is not . We discussed contracept ions and she has chosen oral contraceptives. She has not had intercourse since delivery na discomfo rt. She is experiencing depression. Screening has been completed for intimate partner vi olence. Gail Willard RN. EXAM: Vagina and vulva are normal; no discharge is noted. Cervix normal . Uterus anteverted and mobile, normal in size and shape without tenderness. Adnexa normal in size w ithout masses or tenderness. ASSESSMENT: Normal exam after . PLAN: SUBJECTIVE: Jewell Lambert, is a 23 year old. , female. At patient request, discussed various forms of contraception , including contraceptive patch, nu-vu ring, barrier methods, IUD. Desires ortho evera , given insruc tions in it's use. documented in this encounter Plan of Treatment Not on filedocumented as of this encounter Visit Diagnoses Diagnosis Routine follow-up - Primary documented in this encounter Care Teams Loan Servicing Officer Relationship Specialty Start Date End Date Pedro Burt MD PCP - General 10/19/02 09/12/13 [address] [address] documented as of this encounter
--- OUTSIDE RECORDS SUMMARY | 2022-04-30 15:31 | XMS_ITS | Encounter Summary ---
:1980 Author Organization [place] Address [address] [place] [address] Care Team Providers Name Role Phone Pedro Burt MD Primary Care Provider Reason for Visit Reason Comments Care Encounter Details Date Type Department Care Team Description 01/05/[address] [facility] Shravan Park SUPERVIS N [address] [facility] MD Stephen PREG (Primary Dx) [place] [address] [place] [address] Social History Tobacco Use Types [...] Primary documented in this encounter Care Teams Refrigeration Engine Operator Relationship Specialty Start Date End Date Pedro Burt MD PCP - General 10/19/02 09/12/13 [address] [address] documented as of this encounter
--- OUTSIDE RECORDS SUMMARY | 2022-04-30 15:31 | XMS_ITS | Encounter Summary ---
:1980 Author Organization [facility] Address [address] [place] [address] Care Team Providers Name Role Phone Pedro Burt MD Primary Care Provider Reason for Visit Reason Comments Care Encounter Details Date Type Department Care Team Description 11/27/2002 Office Visit [facility] Shravan Park SUPERVIS N [address] [facility] MD Stephen PREG (Primary Dx) [place] [address] [place] [address] Social History Tobacco Use Types [...] Primary documented in this encounter Care Teams Furniture Crater Relationship Specialty Start Date End Date Pedro Burt MD PCP - General 10/19/02 09/12/13 [address] [address] documented as of this encounter
--- OUTSIDE RECORDS SUMMARY | 2022-04-30 15:31 | XMS_ITS | Encounter Summary ---
:1980 Author Organization [facility] Address [address] [place] [address] Care Team Providers Name Role Phone Pedro Burt MD Primary Care Provider Encounter Details Date Type Department Care Team Description 01/17/2003 Orders Only [facility] Eag an Shravan Park DIAGNOSIS NOT YET 1440 [facility] MD Stephen DEFINED (Primary Dx) [address] [...] documented in this encounter Care Teams Assistant Chief Nursing Officer Relationship Specialty Start Date End Date Pedro Burt MD PCP - General 10/19/02 09/12/13 [address] [address] documented as of this encounter
--- OUTSIDE RECORDS SUMMARY | 2022-04-30 15:31 | XMS_ITS | Encounter Summary ---
:1980 Author Organization [place] Address [address] [place] [address] Care Team Providers Name Role Phone Pedro Burt MD Primary Care Provider Reason for Visit Reason Comments Care Encounter Details Date Type Department Care Team Description 02/05/2003 Office Visit [facility] Shravan Park SUPERVIS O THER NORMAL PREG; [facility] MD Stephen URINARY FREQU [place] [address] [place] [address] Social History Tobacco Use Types [...] feel the same as in the past. Gail Willard RN documented in this encounter [...] PM CDT) athologist Signature Hemoglobin 11.6 g/dL [facility] Specimen Anatomical Collection Method Collection Time Receive d Time (Source) Location / / Volume Laterality 02/05/2003 4:15 PM 3 4:20 CDT PM CDT Shravan Park MD LABORATORY Performing Organization Address City/State/ZIP Code Phon e Number [facility] [address] [place], [place] [address] [address] [facility] (ABNORMAL) UA WITH MICRO (02/05/2003 4:15 PM CDT) [facility] gist Method Time Signature Color Urine Yellow [facility] Appearance Urine Clear [facility] Glucose Urine Negative NEG mg/dL [facility] Bilirubin Urine Negative NEG [facility] Ketones Urine Trace (A) NEG mg/dL [facility] Specific [place] 1.025 1.001 - [place] Urine 1.035 [facility] pH Urine 6.5 5.0 - 7.0 [place] pH [facility] Protein Albumin Negative NEG mg/dL [facility] Urobilinogen 0.2 0.2 - 1.0 [place] Urine EU/dL [facility] Nitrite Urine Negative NEG [facility] Blood Urine Small (A) NEG [facility] Leukocyte Negative NEG [place] Esterase Urine [facility] Source Midstream [place] Urine [facility] WBC Urine 2-5 0 - 2 [place] Abnorm Result /HPF [facility] RBC Urine 2-5 0 - 2 [place] Abnorm Result /HPF [facility] Squamous EPI Moderate (A) FEW /LPF [facility] Bacteria Urine Moderate (A) NEG /HPF [facility] Mucous Urine Present (A) NEG /LPF [facility] Specimen Anatomical Collection Method Collection Time Receive d Time (Source) Location / / Volume Laterality 02/05/2003 4:15 PM 3 4:20 CDT PM CDT Shravan Park MD LABORATORY Performing Organization Address City/[facility]/ZIP Code Phon e Number [place] [address], [place] [address] [address] [facility] GLUCOSE; 1 HR POST (02/05/2003 4:15 PM CDT) P athologist Signature Glu Gest Screen 124 60 - 140 [place] 1hr 50g mg/dL [facility] Specimen Anatomical Collection Method Collection Time Receive d Time (Source) Location / / Volume Laterality 02/05/2003 4:15 PM 3 4:20 CDT PM CDT Shravan Park MD LABORATORY Performing Organization Address City/[facility] Phon e Number [place] [address] [place], [place] [address] [address] [facility] documented in this encounter Visit Diagnoses Diagnosis Supervision of other normal Urinary frequency documented in this encounter Care Teams Aerophysics Engineer Relationship Specialty Start Date End Date Pedro Burt MD PCP - General 10/19/02 09/12/13 [address] [id number] documented as of this encounter
--- OUTSIDE RECORDS SUMMARY | 2022-04-30 15:31 | XMS_ITS | Encounter Summary ---
:1980 Author Organization [place] Address [address] [place] [address] Care Team Providers Name Role Phone Doctor, None MD Primary Care Provider Unavailable Reason for Visit Reason Comments Care Encounter Details Date Type Department Care Team Description 10/17/2002 [facility] [place] [address] [place] [address] Social History Tobacco Use [...] At Patho logist Time Signature ABO/Rh(D) B [facility] ABO/Rh(D) Pos [facility] Antibody Neg [place] Screen [facility] Specimen 10/20/2002 [place] Expires [facility] Specimen Anatomical Collection Method Collection Time Receive d Time (Source) Location / / Volume Laterality 10/17/2002 11:50 10/17/2002 AM CDT 11:55 AM CDT Shravan Park MD LABORATORY Performing Organization Address City/State/ZIP Code Phon e Number M [facility] [address] [address] [facility] CULTURE, URINE (10/17/2002 11:48 AM CDT) Patholo gist Method Time Signature Specimen Midstream [place] Description Urine [facility] Culture Micro No growth [facility] Report status FINAL [place] [id number] [facility] Specimen Anatomical Collection Method Collection Time Receive d Time (Source) Location / / Volume Laterality 10/17/2002 11:48 10/17/2002 AM CDT 11:53 AM CDT Shravan Park MD LABORATORY Performing Organization Address City/State/ZIP Code Phon e Number [facility] [address] [address] [facility] HIV-1/HIV-2, SCREEN (10/17/2002 11:48 AM CDT) Analysis Performed At Patho logist Time Signature HIV 1&2 Negative NEG [facility] Antibody [facility] Specimen Anatomical Collection Method Collection Time Receive d Time (Source) Location / / Volume Laterality 10/17/2002 11:48 10/17/2002 AM CDT 11:53 AM CDT Shravan Park MD LABORATORY Performing Organization Address City/State/ZIP Code Phon e Number [facility] [address] [place], [place] [phone] [place] [address] LABS RPR SCREEN W/REFLEX TO TITER (10/17/2002 11:48 AM CDT) Analysis Performed At Patho logist Time Signature Rapid Plasma Negative NEG [facility] Reagin [facility] LABS Specimen Anatomical Collection Method Collection Time Receive d Time (Source) Location / / Volume Laterality 10/17/2002 11:48 10/17/2002 AM CDT 11:53 AM CDT Shravan Park MD LABORATORY Performing Organization Address City/State/ZIP Code Phon e Number [facility] [address] [place], [place] [phone] [place] [address] LABS RUBELLA AB IGG (10/17/2002 11:48 AM CDT) P athologist Signature Rubella PITER 66 IU/mL [facility] Comment: Interpretation: Positive, Immun e Specimen Anatomical Collection Method Collection Time Receive d Time (Source) Location / / Volume Laterality 10/17/2002 11:48 10/17/2002 AM CDT 11:53 AM CDT Shravan Park MD LABORATORY Performing Organization Address [facility] Phon e Number [facility] [address] LABS HEP B SURFACE ANTIGEN (10/17/2002 11:48 AM CDT) Analysis Performed At Patho [facility] Time Signature Hep B Surface Negative NEG [facility] LABS Specimen Anatomical Collection Method Collection Time Receive d Time (Source) Location / / Volume Laterality 10/17/2002 11:48 10/17/2002 AM CDT 11:53 AM CDT Shravan Park MD LABORATORY Performing Organization Address [facility] Code Phon e Number [address] LABS (ABNORMAL) CBC WITH PLATELETS (10/17/2002 11:48 AM CDT) Analysis Performed At Patho logis Time Signature WBC 6.0 4.0 - 11.0 [place] 10e9/L [facility] RBC Count 4.45 3.8 - 5.2 [place] 10e12/L [facility] Hemoglobin 11.6 (L) 11.7 - [facility] 15.7 g/dL [facility] Hematocrit 36.6 35.0 - [facility] 47.0 % [facility] MCV 82 78 - 100 [place] [facility] MCH 26.2 (L) 26.5 - [facility] 33.0 pg [facility] MCHC 31.8 (L) 32.0 - [facility] 36.0 g/dL [facility] RDW 16.7 (H) 10.0 - [facility] 15.0 % [facility] Platelet Count 260 150 - 450 [place] 10e9/L [facility] Comment: Results confirmed by repeat mahendra t Specimen Anatomical Collection Method Collection Time Receive d Time (Source) Location / / Volume Laterality 10/17/2002 11:48 10/17/2002 AM CDT 11:53 AM CDT Shravan Park MD LABORATORY Performing Organization Address City/State/ZIP Code Phon e Number [facility] [address] [place], [place] [address] [address] [facility] HCG, URINE, NURSE BACKOFFICE (10/17/2002) P athologist Signature HCG Qual Urine positive Specimen (Source) Anatomical Location Collection Method / Collectio n Time Received Time / Laterality Volume Urine specimen 10/17/2002 (specimen) Shravan Park MD LABORATORY documented in this encounter Visit Diagnoses Diagnosis Supervision of other normal - Primary documented in this encounter Care Teams Slitter Service And Setter Relationship Specialty Start Date End Date Doctor, None, PCP - General 07/09/01 10/18/02 documented as of this encounter
--- OUTSIDE RECORDS SUMMARY | 2022-04-30 15:31 | XMS_ITS | Encounter Summary ---
:1980 Author Organization [place] Address [address] [place] [address] Care Team Providers Name Role Phone Pedro Burt MD Primary Care Provider Encounter Details Date Type Department Care Team Description 11/27/2002 Orders Only [facility] SUP ERVIS NORMAL 1ST PREG; [facility] SCREENING NEC [address] [phone] Social History Tobacco Use [...] Procedure Name Priority Date/Time Associated Diagnosis Comme [facility] SONO PREG COMPLETE Routine 11/27/2002 Supervis [...] (18+) Referring Provider: Shravan Park MD Clinic: [facility] Disk: 170 INDICATIONS FOR ULTRASOUND: Present Conditions: Initial Survey (18-26weeks) CLINICAL INFORMATION LMP: 30Ooi52 ??sure EDC: 66Lab78 ??EGA: 19.6wks Previous US: no ?? MEASUREMENTS BPD: 4.4cm ??MA: 19w1d ?Cer: 1 .9cm ??MA: 19w1d HC: 16.3cm ??MA: 19w0d ?AC: 12 .8cm ??MA: 18w3d FL: 3.0cm ?? MA: 19w3d ?Hum: 2 .9cm ??MA: 19w1d FL/AC:na% ?? FL/BPD:na% ?? HC/AC:1.27 ?? CI:83% FHR:157bpm-reg ?JUANITA: wnl EDC: 15Fah74 ?EGA: 19.0wks correspon d SURVEY Type: Ordonez [...] screening documented in this encounter Care Teams Rate Clerk Relationship Specialty Start Date End Date Pedro Burt MD PCP - General 10/19/02 09/12/13 [address] [id number] documented as of this encounter
--- OUTSIDE RECORDS SUMMARY | 2022-04-30 15:31 | XMS_ITS | Encounter Summary ---
:1980 Author Organization [place] Address [address] [place] [address] Care Team Providers Name Role Phone Pedro Burt MD Primary Care Provider Encounter Details Date Type Department Care Team Description 01/30/2003 Orders Only [facility] Shravan Park DIAGNOSIS NOT YET [facility] MD Stephen DEFINED (Prim darryl Dx) [place] [address] [place] [address] Social History Tobacco Use Types Packs/Day Years [...] Primary documented in this encounter Care Teams Striper Relationship Specialty Start Date End Date Pedro Burt MD PCP - General 10/19/02 09/12/13 [address] [address] documented as of this encounter
--- OUTSIDE RECORDS SUMMARY | 2022-04-30 15:31 | XMS_ITS | Encounter Summary ---
:1980 Author Organization [place] Address [address] [place] [address] Care Team Providers Name Role Phone Pedro Burt MD Primary Care Provider Reason for Visit Reason Comments Care possible missed AB Encounter Details Date Type Department Care Team Description 10/30/2002 Office Visit [facility] Shravan Park SUPERVIS N [address] [facility] MD Stephen PREG (Primary Dx) [place] [address] [place] [address] Social History Tobacco Use Types [...] regular q 28- 30 days. Seen in [place] [facility] f or bleeding. Some cramping. Transfer [facility]. Current contraception: condoms Ther e is no [...] Primary documented in this encounter Care Teams Grounds Maintenance Worker Relationship Specialty Start Date End Date Pedro Burt MD PCP - General 10/19/02 09/12/13 [address] [address] documented as of this encounter
--- OUTSIDE RECORDS SUMMARY | 2022-04-30 15:32 | XMS_ITS | Clinical Summary ---
:1980 Author Organization [facility] [place] [address] Care Team Providers Name Role Phone Buck [...] wt on same day) for 08/04/2022 08/04/2021, 11/12/2017, age 18+ 12/06/2017, Additional history exists Depression screening for age 12+ 08/04/2022 08/04/2021, , 03/08/2018, Additional history exists Tetanus booster 01/18/2027 01/18/2017, 04/23/2007, 05/06/2006 Tdap Completed 01/18/2017, 04/23/2007 HIV for age 15-65 Completed 03/26/2017 Medical Devices Implanted Type Area Senior Electronics Design Engineer Device Shelf Model / Identifier Expiration Serial / Lot Date Vessel Guard Preclude 5x6cm - [id number] Spine W.Alondra Manzanares A nd [id number] / Implanted: Qty: 1 on 02/27/2009 at [facility] / [id number] Results Not on filefrom Last 3 Months Insurance Payer Benefit Plan / Subscriber ID Effective Phone Address T ype Group Dates 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 VICTIMS [id number] 2017-Pre [address] [employer] [place] [address] 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 WC SENTRY [id number] 2007-Pres [address] [place] [address] MEDICARE PART A MEDICARE PART A [id number] 2009-Prese ATTN: CLAIMS - HB USE ONLY HB ONLY nt [address] [place] [address] MEDICARE PART B MEDICARE PART B [id number] 2009-Prese ATTN: CLAIMS - HB USE ONLY HB ONLY nt [address] [place] [address] MEDICARE - PB MEDICARE PB ONLY [id number] 2009-Prese ATTN: CLAIMS USE ONLY nt [address] [place] [address] JULIETA RENDON MA [id number] 2021-Prese [address] [place] [address] Jewell Lambert Personal/Family Self 1980 [address]Home) [place] [address] Jewell Lambert Workers Comp Self [phone] (Home) [place] [address] Advance Directives Latest Code Status on File Code Status Date Activated Date Inactivated Comments Full Code 04/21/2017 9:34 AM 04/23/2017 4:12 PM Full Code 04/07/2017 7:20 AM 04/09/2017 3:52 PM Full Code 02/27/2009 8:46 AM 03/04/2009 6:33 PM Care Teams Claim Service Representative Relationship Specialty Start Date End Date Buck Young MD PCP - General Family Practice 10/14/211999 [place] [address]
== END 2022-04-10 22:08 | disposition home or self-care (01) ==
LOC: AMB 04-30 15:23
PROVIDERS: PCP Family Medicine; Visit Provider Internal Medicine
DX: M54.9 Dorsalgia, unspecified (principal); R10.9 Unspecified abdominal pain
CPT/HCPCS: A0425; A0427

== ENCOUNTER 2022-04-10 22:29 | Emergency (ER) | payer MEDICARE, MEDICAID, SELFPAY ==
[2022-04-10 22:36] VITALS: BP 150/112; PULSE 102; RESP 20; TEMP 36.1; O2SAT 100; BMI 19.1
--- NOTE | 2022-04-10 22:46 | ED_ITS ---
HPI - Abdominal Pain General Chief Complaint: Abdominal Pain Stated Complaint: Abdominal Pain Time Seen by Provider: 04/10/22 22:37 History of Present Illness HPI narrative: Pt is a 42 year old woman with a history of recurrent alcholic pancreatitis who presents with mid abd pain. Pt was seen in the ED last night and was released this morning after an episode of pancreatitis. Pt drank alcohol yesterday and again today. Pt has had no nausea or vomiting fever or chills. She states that she only had one alcoholic beverage today and the pain which severe and radiates through to her back is in the mid abd. No other symptoms such as nausea or vomiting fever or chills. Pain is similar to previous presentations. Related Data Home Medications Medication Instructions Recorded Confirmed clonazepam 0.5 mg tablet 0.5 mg PO .Bedtime 03/09/22 duloxetine 30 mg capsule,delayed 60 mg PO QDAY 03/09/22 release folic acid 1 mg tablet 1 mg PO DAILY 03/09/22 gabapentin 600 mg tablet 600 mg PO TID 03/09/22 hydrocortisone 1 % topical cream 1 applic topical BID 03/09/22 hydroxyzine pamoate 25 mg capsule 25 mg PO Q6H PRN 03/09/22 lidocaine 5 % topical patch 1 patch transdermal .Every 24 Hours 03/09/22 magnesium oxide 400 mg (241.3 mg 400 mg PO BID 03/09/22 magnesium) tablet metoprolol tartrate 50 mg tablet 50 mg PO BID 03/09/22 nicotine 14 mg/24 hr daily 1 patch transdermal .Every 24 Hours 03/09/22 transdermal patch potassium chloride 10 mEq 10 meq PO BID 03/09/22 capsule,extended release thiamine HCl (vitamin B1) 100 mg 100 mg PO DAILY 03/09/22 tablet trazodone 50 mg tablet 50 mg PO .Bedtime as needed PRN 03/09/22 Previous Rx's Medication Instructions Recorded dextroamphetamine-amphetamine 20 20 mg PO BID #60 tabs 03/03/22 mg tablet (Adderall) ondansetron 8 mg disintegrating 8 mg PO Q8H PRN nausea and 04/10/22 tablet vomiting 5 days #15 tabs oxycodone 5 mg tablet 5 mg PO Q6H PRN pain #15 tabs 04/10/22 sulfamethoxazole 800 1 tab PO BID #10 tabs 04/10/22 mg-trimethoprim 160 mg tablet (Bactrim DS) Allergies Allergy/AdvReac Type Severity Reaction Status Date / Time venlafaxine Allergy Unknown Verified 04/10/22 22:41 SPICE FLAVOR AdvReac Mild Unknown Uncoded 04/10/22 01:46 Review of Systems Status of ROS Reports: 10 or more systems reviewed and unremarkable except as noted in History and below [facility] Medical History ADHD, predominantly inattentive type Anemia due to acute blood loss Anxiety Diet controlled White classification A1 gestational diabetes mellitus (GDM) Gastroenteritis History of anxiety History of cervical dysplasia (2009) History of difficulty sleeping History of psychosis History of spontaneous History of use of contraceptive intrauterine device (IUD) History of vaginal delivery Multigravida of advanced maternal age Pain in pelvis care Retained products of conception with hemorrhage Transfusion of blood during current hospitalization Vaginal bleeding Surgical History History of colposcopy History of elective (1998) History of elective History of loop electrical excision procedure (LEEP) (2010) History of spinal surgery (2008) Status post dilation and curettage (01/15/19) Status post dilation and curettage Status post primary low transverse section (01/10/19) Status post primary low transverse section Status post repair of anterior cruciate ligament (1994) Social History Narrative: Single, 2 kids, smoker, currently sober, unemployed Tobacco use Smoking Status: Current every day smoker What tobacco products do you use: cigarettes Smoking packs per day: 1 Smoking cigarettes per day: 20.0 Do you use any of these nicotine containing products: None Second hand tobacco smoke exposure: No How often do you have a drink containing alcohol: 2-3 times a week How many standard drinks containing alcohol do you have on a typical day: 3 or 4 How often do you have six or more drinks on one occasion: Never AUDIT-C Alcohol total score: 4 Non-prescribed substance use: denies use service: No Exam Narrative: Exam Narrative: EXAM GENERAL: Patient appears to be in acute distress. EYES: No scleral icterus. LYMPH: No supraclavicular or cervical lymphadenopathy. SKIN: Visible skin seen during exam normal or with benign process only. EXT: No dependent lower extremity pedal edema. HEART: Regular rate and rhythm with no murmurs, rubs, or gallops. LUNGS: Clear to auscultation bilaterally with no crackles or wheezes. ABD: Scaphoid and mildly tender to palpation. PSYCH: Good eye contact, speech is not pressured. Const: Vital Signs, click to edit/add: Vital Signs - 24 hr 04/10/22 22:36 Temperature 97.0 F L Pulse Rate [Right Pulse Oximeter] 102 H Respiratory Rate 20 Blood Pressure [Le ft Upper Arm] 150/112 H Pulse Oximetry 100 Oxygen Delivery Me thod Room Air Course Course Hospital Course: Pt seen and examined. Pt started on IV normal saline and Amylase, Lipase, Etoh, CBC, CMP collected Reevaluation(s) Reevaluation #1: Pt's labs actually look slightly better than yesterday's. Pt did not order picker her antibiotic for her UTI. Time: 00:50 Vital Signs Vital signs: Initial Vital Signs Temperature 97.0 F L 04/10/22 22:36 Temperature Source Temporal Artery Scan 04/10/22 22:36 Pulse Rate 102 H 04/10/22 22:36 Pulse Rhythm 04/10/22 22:36 Respiratory Rate 20 04/10/22 22:36 Blood Pressure 150/112 H 04/10/22 22:36 Blood Pressure Mean 124 04/10/22 22:36 Blood Pressure Position Supine 04/10/22 22:36 Pulse Oximetry 100 04/10/22 22:36 Oxygen Delivery Method 04/10/22 22:36 Vital Signs Temperature 97.0 F L 04/10/22 22:36 Pulse Rate 102 H 04/10/22 22:36 Respiratory Rate 20 04/10/22 22:36 Blood Pressure 150/112 H 04/10/22 22:36 Pulse Oximetry 100 04/10/22 22:36 Oxygen Delivery Method 04/10/22 22:36 Temperature 97.0 F L 04/10/22 22:36 Pulse Rate 102 H 04/10/22 22:36 Respiratory Rate 20 04/10/22 22:36 Blood Pressure 150/112 H 04/10/22 22:36 Pulse Oximetry 100 04/10/22 22:36 Oxygen Delivery Method 04/10/22 22:36 MDM - Abdominal Pain MDM Narrative Medical decision making narrative: Pt is a 42 year old woman with recurrent alcoholic pancreatitis who presents with abd pain after drinking alcohol. Pt was seen earlier today and discharged. Labs actually improved. Pt did not order picker Levaquin which was prescribed for UTI. Pt given IV fluids and eventually 0.5 mg of Diladid and 4 of Zofran. Since pt is noncompliant with UTI Rx, I did give her 1 gram IV Rocephin. Pt discourage d from continued alcohol use. Differential Diagnosis Differential diagnosis: Likely abdominal pain, acute appendicitis, calculus of kidney, constipation, diverticulitis, endometriosis, gastroenteritis, pancreatitis and small bowel obstruction Lab Data Labs: Lab Results 04/10/22 04/10/22 Range/Units 22:50 22:50 WBC 7.33 (4.50-11.00) K/uL RBC 4.10 (4.00-5.20) m/uL Hgb 12.8 (12.0-16.0) gm/dL Hct 38.6 (33.0-51.0) % MCV 94 (80-100) fL MCH 31 (26-34) pg MCHC 33 (32-36) gm/dL RDW Coeff of Melissa 12.4 (11.5-15.5) % Plt Count 215 (140-440) K/uL Neut % (Auto) 80.4 H (42.0-72.0) % Lymph % (Auto) 11.7 L (20-44) % [place] % (Auto) 6.3 (0.0-11.0) % Eos % (Auto) 1.0 (0.0-7.0) % Baso % (Auto) 0.3 (0.0-3.0) % Neut # (Auto) 5.90 (1.7-7.0) K/uL Lymph # (Auto) 0.90 (0.90-2.90) K/uL [place] # (Auto) 0.50 (0.00-0.90) K/UL Eos # (Auto) 0.07 (0.00-0.50) K/uL Baso # (Auto) 0.02 (0.00-0.30) K/uL Abs Immat Gran (auto) 0.02 (0.00-0.30) K/uL Imm/Tot Granulo (auto) 0.3 % Sodium 134 L (135-149) mmol/L Potassium 3.4 L (3.6-5.1) mmol/L Chloride 103 (96-114) mmol/L Carbon Dioxide 25 (20-32) mmol/L BUN 6 (5-24) mg/dL Creatinine 0.4 L (0.5-1.5) mg/dL Estimated Creat Clear 153.95 Estimated GFR 128 ml/min Glucose 110 (60-115) mg/dL Calcium 8.6 (8.4-10.6) mg/dL Total Bilirubin 1.0 (0.1-1.5) mg/dL AST 48 H (12-35) U/L ALT 21 (4-35) U/L Alkaline Phosphatase 119 (40-150) U/L Total Protein 7.4 (6.0-8.3) g/dL Albumin 3.8 (3.3-5.0) g/dL Amylase 229 H (18-89) U/L Lipase 1041 H (23-300) U/L Ethyl Alcohol < 0.01 L (0.01-0.03) % Discharge Plan Discharge Clinical Impression: Acute pancreatitis Condition: Stable Instructions: Pancreatitis (ED) Activity Level: No Restrictions Discharge Diet: Regular Prescriptions: No Action ondansetron 8 mg tablet,disintegrating 8 mg PO Q8H PRN (Reason: nausea and vomiting) 5 Days Qty: 15 0RF oxycodone 5 mg tablet 5 mg PO Q6H PRN (Reason: pain) Qty: 15 0RF sulfamethoxazole-trimethoprim [Bactrim DS] 800-160 mg tablet 1 tab PO BID Qty: 10 0RF dextroamphetamine-amphetamine [Adderall] 20 mg tablet 20 mg PO BID Qty: 60 0RF Rx Instructions: administer doses at least 4-6 hours apart folic acid 1 mg tablet 1 mg PO DAILY metoprolol tartrate 50 mg tablet 50 mg PO BID lidocaine 5 % adhesive patch,medicated 1 patch transdermal .Every 24 Hours hydrocortisone 1 % cream 1 applic topical BID magnesium oxide 400 mg (241.3 mg magnesium) tablet 400 mg PO BID thiamine HCl (vitamin B1) 100 mg tablet 100 mg PO DAILY clonazepam 0.5 mg tablet 0.5 mg PO .Bedtime trazodone 50 mg tablet 50 mg PO .Bedtime as needed PRN nicotine 14 mg/24 hr patch 24 hour 1 patch transdermal .Every 24 Hours gabapentin 600 mg tablet 600 mg PO TID duloxetine 30 mg capsule,delayed release(DR/EC) 60 mg PO QDAY hydroxyzine pamoate 25 mg capsule 25 mg PO Q6H PRN potassium chloride 10 mEq capsule, extended release 10 meq PO BID Follow Up/Referrals: Buck Young MD [Primary Care Provider] - Stand Alone Forms: [employer]jug Info Instructions
--- OUTSIDE RECORDS SUMMARY | 2022-04-10 23:04 | XMS_ITS | Encounter Summary ---
:1980 Author Organization [facility] Address [address] [place] [address] Care Team Providers Name Role Phone Danette Shepherd MD Primary Care Provider Encounter Details Date Type Department Care Team Description 12/16/2018 Travel Social History Tobacco Use Types Packs/Day Years Used Date Smoking Tobacco: Every Day Cigarettes 5 Comments: 5-6 cigarettes daily Alcohol Use Standard Drinks/Week Comments No 0 (1 standard drink = 0.6 oz pure alcoho l) Sex Assigned at Date Recorded Not on file documented as of this encounter Plan of Treatment Not on filedocumented as of this encounter Visit Diagnoses Not on filedocumented in this encounter Care Teams Orthopedically Impaired Teacher Relationship Specialty Start Date End Date Danette Shepherd MD PCP - General Family Practice 09/13/13 12/16/21 [facility] [address] [place] [address] documented as of this encounter
--- OUTSIDE RECORDS SUMMARY | 2022-04-10 23:04 | XMS_ITS | Encounter Summary ---
:1980 Author Organization [facility] Address [address] [place] [address] Care Team Providers Name Role Phone Danette Shepherd MD Primary Care Provider Encounter Details Date Type Department Care Team Description 01/03/2019 Travel Social History Tobacco Use Types Packs/Day [...] on filedocumented in this encounter Care Teams Requirements Analyst Relationship Specialty Start Date End Date Danetet Shepherd MD PCP - General Family Practice 09/13/13 12/16/21 [facility] [address] [place] [address] documented as of this encounter
--- OUTSIDE RECORDS SUMMARY | 2022-04-10 23:04 | XMS_ITS | Encounter Summary ---
:1980 Author Organization [facility] Address [address] [place] [id number] Care Team Providers Name Role Phone Danette Shepherd MD Primary Care Provider Reason for Referral (Routine) - Closed Specialty Diagnoses / Procedures Referred By Contact Refer red To Contact Diagnoses Suspected anomaly, antepartum, single or unspecified fetus Camille Ponce MD Procedures Echo (TTE) Complete Echo (TTE) Complete HC ECHO XTHORACIC,KIMMY ANOM,COMPLETE C ECHO CONGENTIAL F/U LIMITED HC ECHO CONGENTIAL F/U LIMITED W/O CONTRAST HC DOPPLER ECHO PULSED, COMPLETE [address] [place] HC DOPPLER ECHO PULSED, F/U OR LIMITED HC DOPPLER ECHO COLOR FLOW VELOCITY MAP HC ECHO XTHORACIC,KIMMY ANOM,COMPLETE C ECHO CONGENTIAL F/U LIMITED HC ECHO CONGENTIAL F/U LIMITED W/O CONTRAST HC DOPPLER ECHO PULSED, [place] [address] HC DOPPLER ECHO PULSED, F/U OR LIMITED HC DOPPLER ECHO COLOR FLOW VELOCITY MAP Referral ID Status Reason Start Date Expiration Date Visits Requ ested Visits Authorized [id number] Closed 11/16/2018 11/16/2019 1 1 Reason for Visit (Routine) - Closed Specialty Diagnoses / Procedures Referred By Contact Refer red To Contact Diagnoses Suspected anomaly, antepartum, single or unspecified fetus Camille Ponce MD Procedures Echo (TTE) Complete Echo (TTE) Complete HC ECHO XTHORACIC,KIMMY ANOM,COMPLETE C ECHO CONGENTIAL F/U LIMITED HC ECHO CONGENTIAL F/U LIMITED W/O CONTRAST HC DOPPLER ECHO PULSED, COMPLETE [address] [place] [address] HC DOPPLER ECHO PULSED, F/U OR LIMITED HC DOPPLER ECHO COLOR FLOW VELOCITY MAP HC ECHO XTHORACIC,KIMMY ANOM,COMPLETE C ECHO CONGENTIAL F/U LIMITED HC ECHO CONGENTIAL F/U LIMITED W/O CONTRAST HC DOPPLER ECHO PULSED, [place] [address] HC DOPPLER ECHO PULSED, F/U OR LIMITED HC DOPPLER ECHO COLOR FLOW VELOCITY MAP Referral ID Status Reason Start Date Expiration Date Visits Requ ested Visits Authorized [id number] Closed 11/16/2018 11/16/2019 1 1 Encounter Details Date Type Department Care Team Description 12/16/2018 [facility], [facility], [facility] [address] [facility] or [facility] [place] unspecified fetus [address] [facility] [place], [place] [id number] Social History Tobacco Use Types Packs/Day Years Used Date Smoking Tobacco: Every Day Cigarettes 5 Comments: 5-6 cigarettes daily Alcohol Use Standard Drinks/Week Comments No 0 (1 standard drink = 0.6 oz pure alcoho l) Sex Assigned at Date Recorded Not on file documented as of this encounter Medications at Time of Discharge Medication Sig Dispensed Refills Start Date End Date benzoyl peroxide 5 % Apply topically daily. 45 g 0 gelIndications: Dermatitis celecoxib (CELEBREX) 200 Take 200 mg by mouth 0 MG capsule daily clindamycin-benzoyl Apply topically 2 30 g 11 0 peroxide (BENZACLIN) times daily. gelIndications: Dermatitis MIRENA 20 MCG/24HR IU None Entered 0 08/22/2005 IUDIndications: Contraception morphine (JS) 30 MG Take 30 mg by mouth 2 0 times daily oxyCODONE (OXY-IR) 5 MG Take 5 mg by mouth 0 capsule every 4 hours as needed sertraline (ZOLOFT) 100 Take 100 mg by mouth 0 MG tablet daily Tazarotene (TAZORAC) 0.1 Externally apply 1 1 Tube 0 % CREAIndications: Acne dose topically At Bedtime. documented as of this encounter Plan of Treatment Not on filedocumented as of this encounter Procedures Procedure Name Priority Date/Time Associated Diagnosis Comme nts ECHO COMPLETE Routine 12/16/2018 11:34 AM Suspected feta l Results for this CDT anomaly, antepartum, procedu re are in single or the results unspecified fetus section. documented in this encounter Results ECHO COMPLETE (12/16/2018 11:34 AM CDT) Anatomical Region Laterality Modality Echocardiography Specimen (Source) Anatomical Collection Method Collection Time Re ceived Time Location / / Volume Laterality 12/16/2018 11:00 AM CDT Narrative 12/16/2018 11:50 AM CDT [id number]^PONCE^CAMILLE^KENDRA ?Study ID: [id number] ?[facility] ?[facility] ?[address] ?[place] [address] ? Echocardiogram __ Name: JEWELL ESTRELLA Study Date: 12/16/2018 11:00 AM ? Patient Location: [facility] Gender: Female ?Patient Class: Outpatient : 1980 ? Age: 38 yrs Ordering Provider: CAMILLE PONCE Referring Provider: CAMILLE PONCE Performed By: Sidra Gonsalves RDCS Reading Physician: Nathaly Steel MD Reason For Study: Suspected anomal y, antepartum, single or unspecified fetus Data: Number of fetuses: This is a headley gestation. Due date: 01/28/2019. Gestational age: 33+6. Deliver y at: [place]. Specific Indication: echocar diogram performed for fetus with suspected congenital heart disease. __ CONCLUSIONS Normal cardiac anatomy. Normal fet al intracardiac connections. Normal right and left ventricular size and func tion. heart rate is regular at 148 bpm. No hydrops. The results of the echocardiogram were explained to the patient. She is aware that the study was within normal l imits with no major cardiac abnormalities. She is aware of the gener al limitations of echocardiography. No additional ec hocardiograms are recommended. No cardiac follow-up is required. __ Technical Information: A complete two dimensional, spectral and color Doppler echocardiogram is performed. The study quality is good. position and segmental anatomy: The fetus in vertex position. The heart is in left chest. The cardiac apex points towards the left. There is normal atrial arrangement, with concordant atrioventricular and ventriculoarterial connections. The abdominal aorta is to the left of the spine. There is a left s ided stomach. Systemic and pulmonary veins: The systemic venous return is normal. At least one right and one left pulmonary veins are seen returning to th e left atrium. Atria and atrial septum: Normal right atrial size. The left atriu m is normal in size. The flap of the foramen ovale opens in to the left atriu m. There is laminar [id number]-[id number] shunting across the foramen ovale. Atrioventricular valves: The tricuspid valve is normal in appeara nce and motion. There is no tricuspid insufficiency. The mitral valve is crissy l in appearance and motion. There is no mitral valve insufficiency. Ventricles and ventricular septum: Normal right ventricular size. Normal ri ght ventricular systolic function. Normal left ventricular size. Normal lef t ventricular systolic function. No obvious ventricular level shunting. Outflows tracts: Normal great artery relationship. The ri ght ventricular outflow tract is normal in caliber. The pulmonary valve h as normal appearance and motion. There is normal flow across the pulmonary valv e. There is unobstructed flow through the left ventricular outflow tract. The aortic valve has normal appearance and motion. There is normal flow across the aortic valve. Great arteries: The main pulmonary artery has normal soila earance. There is unobstructed flow in the main pulmonary artery. The pulmonary artery bifurcation is normal. There is unobstructed flow in both branch pulm onary arteries. The ductus arteriosus has normal appearance with normal antegr xiomy flow. There is unobstructed antegrade flow in the ascending aorta. T he aortic arch appears normal. There is unobstructed antegrade flow in the ao rtic arch. Effusions and extracardiac findings: No pericardial effusion. No hydrops. cardiac rhythm: heart rate is regular at 148 bpm. Doppler: There is normal flow in the ductus venos us, umbilical artery and umbilical vein. biometry: Biparietal diameter: 7.67 cm. Estimated gestational age by biparietal diameter: 30+5. Head circumference: 28.65 cm. Abdominal circumference: 25.27 cm. echocardiography cannot rule out s mall atrial or ventricular septal defects, persistent ductus arteriosus, m ild coarctation of the aorta, partial anomalous pulmonary venous return, minor anatomic valve anomalies or coronary artery anomalies. Doppler Measurements & Calculations MV E max marisa: 33.6 cm/sec ? Ao V2 max: 72.4 cm/sec MV A max marisa: 44.8 cm/sec ? Ao max P.1 mmHg MV E/A: 0.75 TV E max marisa: 39.1 cm/sec ? PA V2 max: 68.2 cm/sec TV A max marisa: 45.9 cm/sec ? PA max P.9 mmHg __ Reading Physician: ?Nathaly olivares MD 12/16/2018 11:50 AM Procedure Note Nathaly Steel MD - 12/16/2018Forma tting of this note might be different from the original. [id number]^KRIS^CAMILLE^KENDRA Study ID: [id number] [facility] [address] [place] [address] Echocardiogram __ Name: JEWELL ESTRELLA Study Date: 12/16/2018 11:00 AM Patient Location: [facility] Gender: Female Patient Class: Outpatient : [id number] Age: 38 yrs Ordering Provider: CAMILLE PONCE Referring Provider: CAMILLE PONCE Performed By: Sidra Gonsalves RDCS Reading Physician: Nathaly Steel MD Reason For Study: Suspected anomal y, antepartum, single or unspecified fetus Data: Number of fetuses: This is a headley gestation. Due date: 01/28/2019. Gestational age: 33+6. Deliver y at: [place]. Specific Indication: echocar diogram performed for fetus with suspected congenital heart disease. __ CONCLUSIONS Normal cardiac anatomy. Normal fet al intracardiac connections. Normal right and left ventricular size and func tion. heart rate is regular at 148 bpm. No hydrops. The results of the echocardiogram were explained to the patient. She is aware that the study was within normal l imits with no major cardiac abnormalities. She is aware of the gener al limitations of echocardiography. No additional ec hocardiograms are recommended. No cardiac follow-up is required. __ Technical Information: A complete two dimensional, spectral and color Doppler echocardiogram is performed. The study quality is good. position and segmental anatomy: The fetus in vertex position. The heart is in left chest. The cardiac apex points towards the left. There is normal atrial arrangement, with concordant atrioventricular and ventriculoarterial connections. The abdominal aorta is to the left of the spine. There is a left s ided stomach. Systemic and pulmonary veins: The systemic venous return is normal. At least one right and one left pulmonary veins are seen returning to th e left atrium. Atria and atrial septum: Normal right atrial size. The left atriu m is normal in size. The flap of the foramen ovale opens in to the left atriu m. There is laminar [id number]-[id number] shunting across the foramen ovale. Atrioventricular valves: The tricuspid valve is normal in appeara nce and motion. There is no tricuspid insufficiency. The mitral valve is crissy l in appearance and motion. There is no mitral valve insufficiency. Ventricles and ventricular septum: Normal right ventricular size. Normal ri ght ventricular systolic function. Normal left ventricular size. Normal lef t ventricular systolic function. No obvious ventricular level shunting. Outflows tracts: Normal great artery relationship. The ri ght ventricular outflow tract is normal in caliber. The pulmonary valve h as normal appearance and motion. There is normal flow across the pulmonary valv e. There is unobstructed flow through the left ventricular outflow tract. The aortic valve has normal appearance and motion. There is normal flow across the aortic valve. Great arteries: The main pulmonary artery has normal soila earance. There is unobstructed flow in the main pulmonary artery. The pulmonary artery bifurcation is normal. There is unobstructed flow in both branch pulm onary arteries. The ductus arteriosus has normal appearance with normal antegr xiomy flow. There is unobstructed antegrade flow in the ascending aorta. T he aortic arch appears normal. There is unobstructed antegrade flow in the ao rtic arch. Effusions and extracardiac findings: No pericardial effusion. No hydrops. cardiac rhythm: heart rate is regular at 148 bpm. Doppler: There is normal flow in the ductus venos us, umbilical artery and umbilical vein. biometry: Biparietal diameter: 7.67 cm. Estimated gestational age by biparietal diameter: 30+5. Head circumference: 28.65 cm. Abdominal circumference: 25.27 cm. echocardiography cannot rule out s mall atrial or ventricular septal defects, persistent ductus arteriosus, m ild coarctation of the aorta, partial anomalous pulmonary venous return, minor anatomic valve anomalies or coronary artery anomalies. Doppler Measurements & Calculations MV E max marisa: 33.6 cm/sec Ao V2 max: 72. 4 cm/sec MV A max marisa: 44.8 cm/sec Ao max P.1 mmHg MV E/A: 0.75 TV E max marisa: 39.1 cm/sec PA V2 max: 68. 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
--- OUTSIDE RECORDS SUMMARY | 2022-04-10 23:04 | XMS_ITS | Encounter Summary ---
:1980 Author Organization [facility] Address [address] [place] [address] Care Team Providers Name Role Phone Danette Shepherd MD Primary Care Provider Reason for Visit Reason Onset Date Comments Previsit 11/04/2017 [facility] Encounter Details Date Type Department Care Team Description 11/04/2017 PRE VISIT [facility] Taye Scott ([facility] [place] ) [address] [place] [address] [phone] Social History Tobacco Use Types Packs/Day Years Used Date Smoking Tobacco: Every Day Cigarettes 5 Comments: 5-6 cigarettes daily Alcohol Use Standard Drinks/Week Comments No 0 (1 standard drink = 0.6 oz pure alcoho l) Sex Assigned at Date Recorded Not on file documented as of this encounter Miscellaneous Notes Telephone Encounter - Kevin Sapp - 10/29/2017 11:14 AM CDT FUTURE VISIT INFORMATION FUTURE VISIT INFORMATION: ?? Date: 11/04/17 ?? Time: 1400 ?? Location: [facility] REFERRAL INFORMATION: ?? Referring provider: N/A ?? Referring providers clinic: N/A ?? Reason for visit/diagnosis [facility] JOINT RECORDS STATUS LAST SEEN IN 2013 NO RECENT RECORDS documented in this encounter Plan of Treatment Not on filedocumented as of this encounter Visit Diagnoses Not on filedocumented in this encounter Care Teams Decal Applier Relationship Specialty Start Date End Date Danette Shepherd MD PCP - General Family Practice 09/13/13 12/16/21 [facility] [address] [place] [address] documented as of this encounter
--- OUTSIDE RECORDS SUMMARY | 2022-04-10 23:04 | XMS_ITS | Encounter Summary ---
:1980 Author Organization [place] Address [address] [place] [address] Care Team Providers Name Role Phone Danette Shepherd MD Primary Care Provider Reason for Referral Diagnostic Imaging Ultrasound (Routine) - Closed Specialty Diagnoses / Procedures Referred By Contact Refer red To Contact Diagnoses related condition, antepartum Tanya Watson NP Procedures [facility] [address] [place] [address] Fax: Referral ID Status Reason Start Date Expiration Date Visits Requ ested Visits Authorized [id number] Closed 11/08/2018 11/08/2019 1 1 Reason for Visit Diagnostic Imaging Ultrasound (Routine) - Closed Specialty Diagnoses / Procedures Referred By Contact Refer red To Contact Diagnoses related condition, antepartum Tanya Watson NP Procedures [facility] [address] [place] [address] Fax: Referral ID Status Reason Start Date Expiration Date Visits Requ ested Visits Authorized [id number] Closed 11/08/2018 11/08/2019 1 1 Encounter Details Date Type Department Care Team Description 11/16/2018 Hospital Encounter [facility] Dre Watson NP [facility] [address] [place] [address] related Maternal Camille Grijalva MD [address] [id number] condition, Medicine Center antepartum [place] [facility] [address] [place] [address] Social History Tobacco Use Types Packs/Day Years [...] encounter Procedures Procedure Name Priority Date/Time Associated Comments Diagnosis [facility] COMPREHENSIVE Routine 11/16/2018 2:24 PM rela alicia Results for this SINGLE CDT condition, procedure are i n antepartum the results section. documented in this encounter Results [facility] Comprehensive Single (11/16/2018 2:24 PM CDT) Anatomical Region Laterality Modality Ultrasound Specimen (Source) Anatomical Collection Method Collection Time Re ceived Time Location / / Volume Laterality 11/16/2018 1:26 PM CDT Impressions 11/16/2018 3:15 PM CDT IMPRESSION 1) Ordonez intrauterine at 2 9 weeks 4 days gestational age. 2) None of the anomalies commonly detect ed by ultrasound were evident in the detailed anatomic survey as described above. However, there is noted an increased Doppler signal of fluid movement in the pericardial sac. This likely represents physiologic fluid movement but given this unusual finding I do recommend further assessment with echo prior to delivery. 3) Growth parameters and estimated weight were consistent with established dates with normal EFW and AC measurements today. 4) The amniotic fluid volume appeared no rmal. 5) Normal activity for gestational age. 6) On transabdominal imaging the cervix appears long and closed. Narrative 11/16/2018 3:15 PM CDT Comprehensive Pat. Name: JEWELL ESTRELLA Study Date: 1:26pm Pat. NO: [id number] Referring ??MD: ANGEL KITCHEN Site: [facility] Registered Client Associate: Tanya Willett RD MS : 1980 Age: 38 INDICATION SGA on outside US. (8%) Low risk NIPT. METHOD Transabdominal ultrasound examination. V iew: Sufficient Ordonez . Number of fetuses: 1 DATING ? Date ?Details ?Gest. age ?ROSARIO LMP ?04/23/2018 ? 29 w + 4 d ? 01/28/2019 Prior assessment ? 2/ 03/2019 ? GA: 9 w + 3 d ?28 w + 5 d ? 02/03/2019 U/S ? 11/16/2018 ? based upon AC, BPD, Femur, HC ? 28 w + 1 d ? 02/07/2019 Assigned dating ?Dating performed on 11/16/2018, based on the LMP ?29 w + 4 d ? 01/28/2019 GENERAL EVALUATION Cardiac activity present. FHR 159 bpm. movements present. Presentation cephalic. Placenta posterior. Umbilical cord 3 vessel cord. Amniotic fluid Amount of AF: normal. MVP 7.3 cm. BIOMETRY Main Biometry: BPD ?69.4 ?mm ? 27w 6d ?Hadlock OFD ?94.7 ?mm ? 27w 6d ?Nicolaides HC ?264.3 ?mm ?28w 5d ?Hadlock Cerebellum tr ?35.3 ? mm ?30w 2d ?Nicolaides AC ?237.0 ?mm ?28w 0d ?Hadlock Femur ?52.3 ? mm ?27w 6d ?Hadlock Humerus ?47.2 ?mm ? 27w 6d ?Dyllan Weight Calculation: EFW ? 1,163 ?g ? 27% ? Devan EFW (lb,oz) ? 2 lb 9 ?oz EFW by ?Hadlock ([id number]) Head / Face / Neck Biometry: Leadership Coach ? 2.2 ? mm CM ?6.5 ? mm Nasal bone ? 9.6 ? mm ANATOMY Heart / Thorax ?4-chamber view: Pericardial fluid with increased Doppler signal on color flow studies is noted. The following structures appear normal: Head / Neck ? Cranium. Head size. Head shape. Lateral ventricles. Choroid plexus. Midline falx. Cavum septi pellucidi. Cerebellum. Cisterna magna. ? Parenchyma. Thalami. Vermis. ? Neck. Nuchal fold. Face ? Lips. Profile. Nose. Maxilla. Mandible. Orbits. Lens. Heart / Thorax ?RVOT view. LVOT view. Situs. Aortic arch view. Bicaval view. Ductal arch view. Superior vena cava. Inferior vena cava. 3-vessel view. ? 6-lvhzwl-qjjsvpe view. Cardiac position. Cardiac size. Cardiac rhythm. ? Right lung. Left lung. Diaphragm. Abdomen ? Abdominal wall. Cord insertion. Stomach. Kidneys. Bladder. Liver. Bowel. Genitals. Spine ?Cervical spine. Thoracic spine. Lumbar spine. Sacral spine. Extremities / Skeleton ?Rig ht hand. Left hand. Right foot. Left foot. Gender: female. MATERNAL STRUCTURES Cervix ?Visualized ? Appearance: Appears Closed Right Ovary ?Visualized Left Ovary ?Visualized RECOMMENDATION Thank-you for referring your patient for a comprehensive ultrasound. She had cell-free DNA screening showing the expected amounts of chromosomes 21, 18 & 13. I discussed the findings on today's ultr asound with the patient. I reviewed the limitations of ultrasound. We discussed the availability of amniocentesis for the precise diagnosis of chromosomal abnormalities i ncluding the associated procedure- related risk of loss of approximately 1/400. The patient declined all further aneuploidy testing. Of note her first baby weighed around 6 pounds at term. She does report to me today intermittent tobacco use, about 1-3 cigarettes per day, not consistently. She was worried that this might be affecting the heart findings, which I do not believe to be the case. We did discuss that it can, however, affect growth. echocardiogram is scheduled in abo ut 4 weeks due to the finding of Doppler flow in the pericardial sac. 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 Return to primary provider for continued care. If you have questions regarding today's evaluation or if we can be of further service, please contact the [facility]. anomalies may be present but not detected Procedure Note Camille Grijalva MD - 11/16/2018Form atting of this note might be different from the original. Comprehensive Pat. Name:Reba ESTRELLA Date:2018 1:26pm Pat. NO: [id number] MD:BIANCA KITCHEN [facility]:Tanya Willett RDMS :1980Age:38 INDICATION SGA on outside US. (8%) Low risk NIPT. METHOD Transabdominal ultrasound examination. V iew: Sufficient Ordonez . Number of fetuses: 1 DATING Date Details Gest. age ROSARIO LMP 04/23/2018 29 w + 4 d 01/28/2019 Prior assessment 07/04/2018 GA: 9 w + 3 d 28 w + 5 d 02/03/2019 U/S 11/16/2018 based upon AC, BPD, Femur, HC 28 w + 1 d 02/07/2019 Assigned dating Dating performed on 10/23, based on the LMP 29 w + 4 d 01/28/2019 GENERAL EVALUATION Cardiac activity present. FHR 159 bpm. movements present. Presentation cephalic. Placenta posterior. Umbilical cord 3 vessel cord. Amniotic fluid Amount of AF: normal. MVP 7.3 cm. BIOMETRY Main Biometry: BPD 69.4 mm 27w 6d Hadlock OFD 94.7 mm 27w 6d Nicolaides HC 264.3 mm 28w 5d Hadlock Cerebellum tr 35.3 mm 30w 2d Nicolaides AC 237.0 mm 28w 0d Hadlock Femur 52.3 mm 27w 6d Hadlock Humerus 47.2 mm 27w 6d Dyllan Weight Calculation: EFW 1,163 g 27% Devan EFW (lb,oz) 2 lb 9 oz EFW by Hadlock ([id number]) Head / Face / Neck Biometry: Leadership Coach 2.2 mm CM 6.5 mm Nasal bone 9.6 mm ANATOMY Heart / Thorax 4-chamber view: Pericardi al fluid with increased Doppler signal on color flow studies is noted. The following structures appear normal: Head / Neck Cranium. Head size. Head sha pe. Lateral ventricles. Choroid plexus. Midline falx. Cavum septi pellucidi. Cerebellum. Cisterna magna. Parenchyma. Thalami. Vermis. Neck. Nuchal fold. Face Lips. Profile. Nose. Maxilla. Tiffani ble. Orbits. Lens. Heart / Thorax RVOT view. LVOT view. Sit us. Aortic arch view. Bicaval view. Ductal arch view. Superior vena cava. Inferior vena cava. 3-vessel view. 3-owxfjs-aovquok view. Cardiac position . Cardiac size. Cardiac rhythm. Right lung. Left lung. Diaphragm. Abdomen Abdominal wall. Cord insertion. Stomach. Kidneys. Bladder. Liver. Bowel. Genitals. Spine Cervical spine. Thoracic spine. Alcira mbar spine. Sacral spine. Extremities / Skeleton Right hand. Left hand. Right foot. Left foot. Gender: female. MATERNAL STRUCTURES Cervix Visualized Appearance: Appears Closed Right Ovary Visualized Left Ovary Visualized RECOMMENDATION Thank-you for referring your patient for a comprehensive ultrasound. She had cell-free DNA screening showing the expected amounts of chromosomes 21, 18 & 13. I discussed the findings on today's ultr asound with the patient. I reviewed the limitations of ultrasound. We discussed the availability of amniocentesis for the precise diagnosis of chromosomal abnormalities i ncluding the associated procedure- related risk of loss of approximately 1/400. The patient declined all further aneuploidy testing. Of note her first baby weighed around 6 pounds at term. She does report to me today intermittent tobacco use, about 1-3 cigarettes per day, not consistently. She was worried that this might be affecting the heart findings, which I do not believe to be the case. We did discuss that it can, however, affect growth. echocardiogram is scheduled in abo ut 4 weeks due to the finding of Doppler flow in the pericardial sac. 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 Return to primary provider for continued care. If you have questions regarding today's evaluation or if we can be of further service, please contact the [facility]. anomalies may be present but not detected IMPRESSION 1) Ordonez intrauterine at 2 9 weeks 4 days gestational age. 2) None of the anomalies commonly detect ed by ultrasound were evident in the detailed anatomic survey as described above. However, there is noted an increased Doppler signal of fluid movement in the pericardial sac. This likely represents physiologic fluid movement but given this unusual finding I do recommend further assessment with echo prior to delivery. 3) Growth parameters and estimated weight were consistent with established dates with normal EFW and AC measurements today. 4) The amniotic fluid volume appeared no rmal. 5) Normal activity for gestational age. 6) On transabdominal imaging the cervix appears long and closed. Tanya Watson NP IMG [facility] ORDERABLES documented in this encounter Visit Diagnoses Diagnosis related condition, antepartum documented in this encounter Care Teams Interdisciplinary Professor Relationship Specialty Start Date End Date Danette Shepherd MD PCP - General Family Practice 09/13/13 12/16/21 [facility] [address] [place] [address] documented as of this encounter
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
--- OUTSIDE RECORDS SUMMARY | 2022-04-10 23:04 | XMS_ITS | Encounter Summary ---
:1980 Author Organization [place] [facility] Address [address] [place] [address] Care Team Providers Name Role Phone Danette Shepherd MD Primary Care Provider Encounter Details Date Type Department Care Team Description 10/29/2017 Orders Only [facility] Orthopaedic Taye Fuentes Pain in joint, pelvic Clinic MD [place] region and thigh [address] [facility] [address] (Primary Dx) [address] [place] [address] [phone] Social History Tobacco Use Types Packs/Day Years Used Date Smoking Tobacco: Every Day Cigarettes 5 Comments: 5-6 cigarettes daily Alcohol Use Standard Drinks/Week Comments No 0 (1 standard drink = 0.6 oz pure alcoho l) Sex Assigned at Date Recorded Not on file documented as of this encounter Plan of Treatment Not on filedocumented as of this encounter Visit Diagnoses Diagnosis Pain in joint, pelvic region and thigh - Primary documented in this encounter Care Teams Assistant Front Desk Manager Relationship Specialty Start Date End Date Danette Shepherd MD PCP - General Family Practice 09/13/13 12/16/21 [facility] [address] [place] [address] documented as of this encounter
--- OUTSIDE RECORDS SUMMARY | 2022-04-10 23:04 | XMS_ITS | Encounter Summary ---
:1980 Author Organization [place] Address [address] [place] [address] Care Team Providers Name Role Phone Danette Shepherd MD Primary Care Provider Reason for Referral Diagnostic Imaging Ultrasound (Routine) - Closed Specialty Diagnoses / Procedures Referred By Contact Refer red To Contact Diagnoses related condition, antepartum Lolita Montoya Procedures [facility] [address] [place] [address] Referral ID Status Reason Start Date Expiration Date Visits Requ ested Visits Authorized [id number] Closed 12/19/2018 12/19/2019 1 1 Reason for Visit Diagnostic Imaging Ultrasound (Routine) - Closed Specialty Diagnoses / Procedures Referred By Contact Refer red To Contact Diagnoses related condition, antepartum Lolita Montoya Procedures [facility] [address] [place] [address] Referral ID Status Reason Start Date Expiration Date Visits Requ ested Visits Authorized [id number] Closed 12/19/2018 12/19/2019 1 1 Encounter Details Date Type Department Care Team Description 01/03/2019 Hospital Encounter M [facility] Lolita Montoya [facility] [address] [place] [address] related Maternal Reba Veliz DO [address] [facility] [address] [place], [place] [address] condition, Medicine Center antepartum [place] Ganesh E Bryn [facility] [address] [place] [address] Social History Tobacco Use Types [...] Procedure Name Priority Date/Time Associated Comments Diagnosis [facility] COMPREHENSIVE Routine 01/03/2019 12:46 relate d Results for this SINGLE F/U PM CDT condition, procedure are i n antepartum the results section. documented in this encounter Results [facility] Comprehensive Single F/U (01/03/2019 12:46 PM CDT) Anatomical Region Laterality Modality Ultrasound Specimen (Source) Anatomical Collection Method Collection Time Re ceived Time Location / / Volume Laterality 01/03/2019 12:00 PM CDT Impressions 01/03/2019 12:52 PM CDT IMPRESSION 1) Intrauterine at 36 3/7 week s gestational age. 2) Visualized anatomy appears norm al. 3) Growth parameters and estimated weight were consistent with Small for Gestational Age. There has been slight suboptimal growth (27%ile to 11%ile), but the AC remains above the 5%ile. 4) The amniotic fluid volume appeared no rmal. 5) The BPP is reassuring. Narrative 01/03/2019 12:52 PM CDT Comp Follow Up Pat. Name: JEWELL ESTRELLA Study Date: 12:00pm Pat. NO: [id number] Referring ??: JOSE RAUL WESTBROOK SALCEDO Site: [facility] Ground Water Technician: Marce Gustafson RDMS : 1980 Age: 38 INDICATION Check growth METHOD Transabdominal ultrasound examination. V iew: Sufficient Ordonez . Number of fetuses: 1 DATING ? Date ?Details ?Gest. age ?ROSARIO LMP ?04/23/2018 ? 36 w + 3 d ? 01/28/2019 Prior assessment ? 2/ 03/2019 ? GA: 9 w + 3 d ?35 w + 4 d ? 02/03/2019 U/S ? 01/03/2019 ? based upon AC, BPD, Femur, HC ? 34 w + 1 d ? 02/13/2019 Assigned dating ?Dating performed on 11/16/2018, based on the LMP ?36 w + 3 d ? 01/28/2019 GENERAL EVALUATION Cardiac activity present. FHR 153 bpm. movements present. Presentation cephalic. Placenta posterior. Umbilical cord 3 vessel cord. Amniotic fluid MVP 6.1 cm. BIOMETRY Main Biometry: BPD ?82.8 ?mm ? 33w 2d ?Hadlock OFD ?112.9 ?mm ?34w 6d ?Nicolaides HC ?311.9 ? mm ? 34w 6d ?Hadlock Cerebellum tr ?41.9 ? mm ?35w 6d ?Nicolaides AC ?302.7 ?mm ?34w 2d ?Hadlock Femur ?65.6 ? mm ?33w 6d ?Hadlock Humerus ?56.9 ?mm ? 33w 1d ?Dyllan Weight Calculation: EFW ? 2,347 ?g ? 11% ? Devan EFW (lb,oz) ? 5 lb 3 ?oz EFW by ?Hadlock ([id number]) ANATOMY The following structures appear normal: Head / Neck ? Cranium. Head size. Head shape. Lateral ventricles. Midline falx. Cavum septi pellucidi. Cerebellum. Cisterna magna. Thalami. Face ? Lips. Profile. Nose. Heart / Thorax ?4-chamber view. RVOT view. LVOT view. 0-uorwar-weqarkt view. ? Diaphragm. Abdomen ? Stomach. Kidneys. Bladder. Spine ?Cervical spine. Thoracic spine. Lumbar spine. Sacral spine. Gender: female. BIOPHYSICAL PROFILE 2: breathing movements 2: Gross body movements 2: tone 2: Amniotic fluid volume 12/29 Biophysical profile score DOPPLER Umbilical Artery: S / D ? 2.86 ? 77% ?Reed HR ?148 ? bpm MATERNAL STRUCTURES Cervix ?Visualized Right Ovary ?Visualized Left Ovary ?Not visualized RECOMMENDATION We discussed the findings on today's ult rasound with the patient. This pattern of growth is most likely re lated to constitutional smallness. Her first baby was 6lbs at term. Recommend biophysical profiles in [place] to assess for placental insufficiency (oligo, etc). Co nsider delivery in the 39 th week. Would not deliver prior to 39 weeks unless otherwise indicated. Return to primary provider for continued care. Thank you for the opportunity to partici darrel in the care of this patient. If you have questions regarding today's evaluation or if we can be of further service, please contact the Maternal- Medicine Center. anomalies may be present but not detected Procedure Note Reba Veliz, DO - 01/03/2019 Comp Follow Up Pat. Name:Reba ESTRELLA Date:2018 12:00pm Pat. NO: [id number] MD:LOLITA Redd [facility] Site:[place]:Marce Gustafson RDMS :1980Age:38 INDICATION Check growth METHOD Transabdominal ultrasound examination. V iew: Sufficient Ordonez . Number of fetuses: 1 DATING Date Details Gest. age ROSARIO LMP 04/23/2018 36 w + 3 d 01/28/2019 Prior assessment 07/04/2018 GA: 9 w + 3 d 35 w + 4 d 02/03/2019 U/S 01/03/2019 based upon AC, BPD, Femur, HC 34 w + 1 d 02/13/2019 Assigned dating Dating performed on 10/23, based on the LMP 36 w + 3 d 01/28/2019 GENERAL EVALUATION Cardiac activity present. FHR 153 bpm. movements present. Presentation cephalic. Placenta posterior. Umbilical cord 3 vessel cord. Amniotic fluid MVP 6.1 cm. BIOMETRY Main Biometry: BPD 82.8 mm 33w 2d Hadlock OFD 112.9 mm 34w 6d Nicolaides HC 311.9 mm 34w 6d Hadlock Cerebellum tr 41.9 mm 35w 6d Nicolaides AC 302.7 mm 34w 2d Hadlock Femur 65.6 mm 33w 6d Hadlock Humerus 56.9 mm 33w 1d Dyllan Weight Calculation: EFW 2,347 g 11% Devan EFW (lb,oz) 5 lb 3 oz EFW by Hadlock ([id number]) ANATOMY The following structures appear normal: Head / Neck Cranium. Head size. Head sha pe. Lateral ventricles. Midline falx. Cavum septi pellucidi. Cerebellum. Cisterna magna. Thalami. Face Lips. Profile. Nose. Heart / Thorax 4-chamber view. RVOT view . LVOT view. 5-giozqn-kdikhdg view. Diaphragm. Abdomen Stomach. Kidneys. Bladder. Spine Cervical spine. Thoracic spine. Alcira mbar spine. Sacral spine. Gender: female. BIOPHYSICAL PROFILE 2: breathing movements 2: Gross body movements 2: tone 2: Amniotic fluid volume 8/8 Biophysical profile score DOPPLER Umbilical Artery: S / D 2.86 77% Reed HR 148 bpm MATERNAL STRUCTURES Cervix Visualized Right Ovary Visualized Left Ovary Not visualized RECOMMENDATION We discussed the findings on today's [facility] with the patient. This pattern of growth is most likely re lated to constitutional smallness. Her first baby was 6lbs at term. Recommend biophysical profiles in [place] to assess for placental insufficiency (oligo, etc). Co nsider delivery in the 39 th week. Would not deliver prior to 39 weeks unless otherwise indicated. Return to primary provider for continued care. Thank you for the opportunity to partici darrel in the care of this patient. If you have questions regarding today's evaluation or if we can be of further service, please contact the Maternal- Medicine Center. anomalies may be present but not detected IMPRESSION 1) Intrauterine at 36 3/7 week s gestational age. 2) Visualized anatomy appears norm al. 3) Growth parameters and estimated weight were consistent with Small for Gestational Age. There has been slight suboptimal growth (27%ile to 11%ile), but the AC remains above the 5%ile. 4) The amniotic fluid volume appeared no rmal. 5) The BPP is reassuring. Lolita Salcedo [facility] US ORDERABLES documented in this encounter Visit Diagnoses Diagnosis related condition, antepartum documented in this encounter Care Teams Mechanic Insulator Relationship Specialty Start Date End Date Danette Shepherd MD PCP - General [facility] Practice 09/13/13 12/16/21 [facility] [address] [facility] [address] documented as of this encounter
--- OUTSIDE RECORDS SUMMARY | 2022-04-10 23:04 | XMS_ITS | Clinical Summary ---
:1980 Author Organization [place] Address [address] [place] [address] Care Team Providers Name Role Phone [facility], [facility] Primary Care Provider [phone] Allergies Active Allergy Reactions Severity Noted Date Comments No Clinical Screening - Hives 02/27/2009 Curr y See Comments No Known Drug Allergies 10/17/2002 Venlafaxine Other (See Comments) 09/12/2007 Other r eaction(s): Hallucinations hallucinations Odd reaction Medications Medication Sig Dispensed Refills Start Date End Date Status MIRENA 20 MCG/24HR IU None Entered 0 08/22/2005 Active IUDIndications: Contraception Tazarotene (TAZORAC) Externally apply 1 1 Tube 0 03/06/2010 Active 0.1 % CREAIndications: dose topically At Acne Bedtime. Additional Information Patient not taking. Reported on 04/24/2019 clindamycin-benzoyl peroxide Apply topically 2 times 30 g 11 03/07/2010 Active (BENZACLIN) gelIndications: daily. Dermatitis Additional Information Patient not taking. Reported on 04/24/2019 benzoyl peroxide 5 % Apply topically daily. 45 g 0 2010 Active gelIndications: Dermatitis Additional Information Patient not taking. Reported on 04/24/2019 morphine (JS) 30 MG Take 30 mg by mouth 2 times daily 0 Active oxyCODONE (OXY-IR) 5 MG capsule Take 5 mg by mouth every 4 hours 0 Active as needed sertraline (ZOLOFT) 100 MG tablet Take 100 mg by mouth daily 0 Active celecoxib (CELEBREX) 200 MG capsule Take 200 mg by mouth daily 0 Active Active Problems Problem Noted Date Nonallopathic lesion of sacral region 07/04/2010 Overview: Problem list name updated by nicole velasquez Provider to review Pain in joint, pelvic region and thigh 07/04/2010 Pain in thoracic spine 07/04/2010 CARDIOVASCULAR SCREENING; LDL GOAL LESS THAN 160 03/23 Generalized anxiety disorder 05/23/2007 Tobacco use disorder 03/16/2007 Attention deficit hyperactivity disorder (ADHD) 2004 Overview: Problem list name updated by automated p rocess. Provider to review Resolved Problems Problem Noted Date Resolved Date NO SHOW 08/27/2004 03/16/2007 Encounter for supervision of other normal 10/18/19 03 06/07/2009 Overview: Diagnosis updated by automated process. Provider to review and confirm. Immunizations Name Administration Dates Next Due FLU 6-35 months 03/02/2009 Influenza (IIV3) PF 05/31/2013, 03/02/2009, 04/06/2008 Influenza Intranasal Vaccine 04/08/2010 Influenza Intranasal Vaccine 4 valent 04/08/2010 (FluMist) Influenza Vaccine IM > 6 months Valent 03/26/2017, 6 IIV4 (Alfuria,Fluzone) Pneumococcal 23 valent 03/02/2009 Td (Adult), Adsorbed 05/06/2006 Family History Medical History Relation Comments Heart Disease Maternal Grandmother Psychotic Disorder Mother anxiety Relation Status Comments Maternal Grandmother Mother Social History Tobacco Use Types Packs/Day Years Used Date Smoking Tobacco: Every Day Cigarettes 5 Smokeless Tobacco: Never Comments: 5-6 cigarettes daily Alcohol Use Standard Drinks/Week Comments No 0 (1 standard drink = 0.6 oz pure alcoho l) Sex Assigned at Date Recorded Not on file Last Filed Vital Signs Vital Sign Reading Time Taken Comments Blood Pressure 123/81 12/17/2021 4:35 AM CDT Pulse 97 12/17/2021 6:34 AM CDT Temperature 36.9 ??C (98.4 ??F) 12/17/2021 12:39 AM CDT Respiratory Rate 20 12/17/2021 6:34 AM CDT Oxygen Saturation 100% 12/17/2021 6:34 AM CDT Inhaled Oxygen Concentration - - Weight 57.9 kg (127 lb 9.6 oz) 04/24/2019 3:53 PM MULTIPLE DRUM SANDER Height 167.6 cm (5' 6) 09/02/2017 11:17 AM CDT Body Mass Index 20.6 09/02/2017 11:17 AM CDT Plan of Treatment Health Maintenance Due Date Last Done Comments ADVANCE CARE PLANNING 1980 ANNUAL REVIEW OF HM ORDERS 1980 HEPATITIS B IMMUNIZATION (1 1980 of 3 - 3-dose series) COVID-19 Vaccine (#1) 1980 HEPATITIS C SCREENING 02/18/2000 MEDICARE ANNUAL WELLNESS 02/18/2000 VISIT PAP 2003 Pneumococcal Vaccine: 03/02/2010 03/02/2009 Pediatrics (0 to 5 Years) and At-Risk Patients (6 to 64 Years) (2 - PCV) PHQ-2 (once per calendar 05/24/2021 04/24/2019, 04/24/2019 year) INFLUENZA VACCINE (#1) 2022 03/26/2017, 03/26/2017, 03/11/2016, Additional history exists DTAP/TDAP/TD IMMUNIZATION 01/18/2027 01/18/2017, 04/23/2007 , (9 - Td or Tdap) 05/06/2006, Additional history exists IPV IMMUNIZATION Completed 06/24/1988, 12/09/1983, 08/23/1983, Additional history exists HIV SCREENING Completed 10/17/2002 MENINGITIS IMMUNIZATION Aged Out No longe r eligible based on patient 's age to complete this topic Insurance Payer Benefit Plan / Subscriber ID Effective Dates Phone Addre ss Type Group [facility] [id number] 2021-Preserin [phone] [address] HMO t 0 [place] [address] MEDICARE MEDICARE [id number] 2017-Preserin [phone] ATTN CL AIMS Medicare t 0 [address] [place] [address] [phone] (Home) [place] [address] Jewell Lambert Personal/Family Self 1980 [phone] [address] (Home) [place] [address] Jewell Lambert Personal/Family Self 1980 [phone] (Home) [facility] [address] Jewell Lambert Worker's Self 1980 [phone] [employer] 4 (Home) [place] [id number] Care Teams Relationship Associate Relationship Specialty Start Date End Date Clinic, [facility] PCP - General 12/17/21 [address] [place] [address]
--- OUTSIDE RECORDS SUMMARY | 2022-04-10 23:04 | XMS_ITS | Encounter Summary ---
:1980 Author Organization [place] Address [address] [place] [address]. [place] [address] Care Team Providers Name Role Phone Danette Shepherd MD Primary Care Provider Encounter Details Date Type Department Care Team Description 12/14/[address] [facility] [place] [phone] [place] [address] (Wo rk) Social History Tobacco Use Types [...] on filedocumented in this encounter Care Teams Information Security Systems Instructor Relationship Specialty Start Date End Date Danette Shepherd MD PCP - General Family Practice 09/13/13 12/16/21 [facility] [address] [place] [address] documented as of this encounter
--- OUTSIDE RECORDS SUMMARY | 2022-04-10 23:04 | XMS_ITS | Encounter Summary ---
:1980 Author Organization [place] Address [address] [place] [address] Care Team Providers Name Role Phone Danette Shepherd MD Primary Care Provider Encounter Details Date Type Department Care Team Description 05/03/2019 Travel Social History Tobacco Use Types Packs/Day [...] on filedocumented in this encounter Care Teams Plumbing Service Technician Relationship Specialty Start Date End Date Danette Shepherd MD PCP - General Family Practice 09/13/13 12/16/21 [facility] [address] [place] [address] documented as of this encounter
--- OUTSIDE RECORDS SUMMARY | 2022-04-10 23:04 | XMS_ITS | Encounter Summary ---
:1980 Author Organization [place] Address [address] [place] [address] Care Team Providers Name Role Phone Danette Shepherd MD Primary Care Provider Reason for Visit Reason Onset Date Comments Appointment 03/21/2019 Who to schedule with Encounter Details Date Type Department Care Team Description 03/21/2019 Telephone [facility] Neurology None Appointment (Who to [address] [place] [address] schedule with) [address] Floor [place] [phone] Social History Tobacco Use Types Packs/Day Years Used Date Smoking Tobacco: Every Day Cigarettes 5 Comments: 5-6 cigarettes daily Alcohol Use Standard Drinks/Week Comments No 0 (1 standard drink = 0.6 oz pure alcoho l) Sex Assigned at Date Recorded Not on file documented as of this encounter Miscellaneous Notes Telephone Encounter - Michael Murphy - 03/23/2019 10:21 AM CDT LVM-Sched first available with general Neurology per message from Liza Telephone Encounter - Isadora Davenport - 03/21/2019 4:28 PM CDT [facility] Call Center Phone Message May a detailed message be left on voicemail: yes Reason for Call: Question regarding specialist protocol Please follow protocols- only utilize this documentation for questions or concerns that are not clear in the protocol. Contact clinic directly to clarify question(s) via phone or Coinify message. Was Clinic Available: yes - told to send a message Question regarding protocol: Who to schedule with for Pain in brain then arms and legs wont work .Paralasis almost like a seizure but she said she is coherent. Is there a referral for the requested specialist/specialty? no Name of referring provider: NONE - Self Referred Location of referring provider: NONE - Self Referred Action Taken: Message routed to: [facility] Neurology documented in this encounter Plan of Treatment Not on filedocumented as of this encounter Visit Diagnoses Not on filedocumented in this encounter Care Teams Federal Java Developer Relationship Specialty Start Date End Date Danette Shepherd MD PCP - General Family Practice 09/13/13 12/16/21 [facility] [address] [place] [address] documented as of this encounter
--- OUTSIDE RECORDS SUMMARY | 2022-04-10 23:04 | XMS_ITS | Encounter Summary ---
:1980 Author Organization [place] Address [address] [place] [address] Care Team Providers Name Role Phone Danette Shepherd MD Primary Care Provider Reason for Referral Diagnostic Imaging Ultrasound (Routine) - Closed Specialty Diagnoses / Procedures Referred By Contact Refer red To Contact Diagnoses related condition, antepartum Tanya Watson NP Procedures [facility] [address] [place] [address] Fax: Referral ID Status Reason Start Date Expiration Date Visits Requ ested Visits Authorized [id number] Closed 11/08/2018 11/08/2019 1 1 (Routine) - Closed Specialty Diagnoses / Procedures Referred By Contact Refer red To Contact Diagnoses related condition, antepartum Tanya Watson NP [facility] [address] [place] [address] Fax: Referral ID Status Reason Start Date Expiration Date Visits Requ ested Visits Authorized [id number] Closed 11/08/2018 11/08/2019 1 1 Encounter Details Date Type Department Care Team Description 11/08/2018 [facility] Tanya Watson P regnancy related Maternal LEGAL PRACTICE MANAGER condition, Medicine Center [facility] antepartum (Primary [facility]) [address] [address] [phone] Social History Tobacco Use Types Packs/Day Years Used Date Smoking Tobacco: Every Day Cigarettes 5 Comments: 5-6 cigarettes daily Alcohol Use Standard Drinks/Week Comments No 0 (1 standard drink = 0.6 oz pure alcoho l) Sex Assigned at Date Recorded Not on file documented as of this encounter Plan of Treatment Scheduled Referrals Name Type Priority Associated Diagnoses Order S chedule [facility] Referral Routine Related 1 Occ urrences starting REFERRAL- Condition, Antepartum 11/08/2018 until 05/07/2019 documented as of this encounter Results [facility] Comprehensive Single (11/16/2018 2:24 PM CDT) Anatomical [...] JEWELL ESTRELLA Study Date: 1:26pm Pat. NO: [id number] Referring ??MD: ANGEL KITCHEN Site: [facility] Wall Taper: Tanya Willett RD MS : 1980 Age: 38 INDICATION SGA on outside US. (8%) Low risk NIPT. METHOD Transabdominal ultrasound examination. V iew: Sufficient Ordonez . Number of fetuses: 1 DATING ? Date ?Details ?Gest. age ?ROSARIO LMP ?04/23/2018 ? 29 w + 4 d ? 01/28/2019 Prior assessment ? 03/2019 ? GA: 9 w + 3 [...] Biometry: BPD ?69.4 ?mm ? 27w 6d ?Ace APPLE ?94.7 ?mm ? 27w 6d ?Nicolaides ?264.3 ?mm ?28w 5d ?Hadlock Cerebellum tr ?35.3 ? mm ?30w 2d ?Nicolaides AC ?237.0 ?mm ?28w 0d ?Hadlock Femur ?52.3 ? mm ?27w 6d ?Hadlock Humerus ?47.2 ?mm ? 27w 6d ?Dyllan Weight Calculation: EFW ? 1,163 ?g ? 27% ? Devan EFW (lb,oz) ? 2 lb 9 ?oz EFW by ?Hadlock ([id number]-FL) Head / Face / Neck Biometry: Test Equipment Mechanic ? 2.2 ? mm CM ?6.5 ? [...] cava. Inferior vena cava. 3-vessel view. ? 1-vmcnlw-wcvepta view. Cardiac position. Cardiac size. Cardiac rhythm. [...] Pat. Name:Reba ESTRELLA Date:2018 1:26pm Pat. NO: [id number] MD:BIANCA KITCHEN [facility]:Tanya Willett RDMS :1980Age:38 INDICATION SGA on outside [...] 2 lb 9 oz EFW by Hadlock ([id number]-[id number]-FL) Head / Face / Neck Biometry: Test Equipment Mechanic 2.2 mm CM 6.5 mm Nasal bone [...] vena cava. Inferior vena cava. 3-vessel view. 4-yvkipx-mqoizda view. Cardiac position . Cardiac size. Cardiac [...] long and closed. Tanya Watson NP [facility] US ORDERABLES documented in this encounter Visit Diagnoses Diagnosis related condition, antepartum - Primary related condition, antepartum documented in this encounter Care Teams Director Of Federal Sales Relationship Specialty Start Date End Date Danette Shepherd MD PCP - General Family Practice 09/13/13 12/16/21 [facility] [address] [place] [address] documented as of this encounter
--- OUTSIDE RECORDS SUMMARY | 2022-04-10 23:04 | XMS_ITS | Encounter Summary ---
:1980 Author Organization [place] Address [facility] [place] [address] Care Team Providers Name Role Phone Danette Shepherd MD Primary Care Provider Reba Veliz DO Unavailable [phone] Jairon Greene MD Unavailable Encounter Details Date Type Department Care Team Description 01/06/[address] [address] Social History Tobacco Use Types Packs/Day Years [...] on filedocumented in this encounter Care Teams Clam Treader Relationship Specialty Start Date End Date Danette Shepherd MD PCP - General Family Practice 09/13/13 12/16/21 [facility] [address] [place] [address] Reba Veliz Assigned OBGYN Provider 03/15/20 07/06/20 DO Silvina [address] [facility] [address] [place] [address] Jairon Greene, Assigned Neuroscience 03/15/20 10/26/20 Provider 420 [facility] [address] [place] [address] documented as of this encounter
--- OUTSIDE RECORDS SUMMARY | 2022-04-10 23:04 | XMS_ITS | Encounter Summary ---
:1980 Author Organization [place] Address [facility] [place] [address] Care Team Providers Name Role Phone Danette Shepherd MD Primary Care Provider Reba Veliz DO Unavailable [phone] Jairon Greene MD Unavailable Reason for Visit Reason Comments Results Encounter Details Date Type Department Care Team Description 01/04/2018 [facility] Nereyda Beatty [address] [address] Social History Tobacco Use Types [...] on filedocumented in this encounter Care Teams Job Trainer Relationship Specialty Start Date End Date Danette Shepherd MD PCP - General Family Practice 09/13/13 12/16/21 [facility] [address] [place] [address] Reba Veliz Assigned OBGYN Provider 03/15/20 07/06/20 DO Silvina [address] [facility] [address] [place] [address] Jairon Greene, Assigned Neuroscience 03/15/20 10/26/20 Provider 420 [facility] [address] [place] [address] documented as of this encounter
--- OUTSIDE RECORDS SUMMARY | 2022-04-10 23:04 | XMS_ITS | Encounter Summary ---
:1980 Author Organization [facility] Address [address] [place] [address] Care Team Providers Name Role Phone Danette Shepherd MD Primary Care Provider Reba Veliz DO Unavailable [phone] Jairon Greene MD Unavailable Reason for Visit Reason Comments Advice Only FB in left sinus cavity sinc e sept, brought upper dental xrays, referred by Dr Hagen Sinus Problem clicking - pressure in left sinus cavity when bending over Encounter Details Date Type Department Care Team Description 12/08/2017 Office Visit - [facility] Shay Barrientos MD Sinus pressure [facility] [address] [place] [address] [address] [place] [id number] [phone] (Wo rk) Social History Tobacco Use Types Packs/Day Years Used Date Smoking Tobacco: Every Day Cigarettes 5 Comments: 5-6 cigarettes daily Alcohol Use Standard Drinks/Week Comments No 0 (1 standard drink = 0.6 oz pure alcoho l) Sex Assigned at Date Recorded Not on file documented as of this encounter Progress Notes Shay Barrientos MD - 12/08/2017 1:15 PM CDT HISTORY OF PRESENT ILLNESS Patient reports that that she has something in her sinus. She reports that she may have had it sinceDecember or January. She hears clicking or bubbling in the left sinus cavity. No dental pain. No drainage or change in drainage. She feels pressure in the left cheek. She reports that she had an implant in her ankle that had to be removed. Her father showed me pictures of what was removed. She reports that she had a behavior change after with the implant in her ankle. She had a Panorex that suggested something in the soft tissues. REVIEW OF SYSTEMS Review of Systems: a 10-system review was performed. Pertinent positives are noted in the HPI and chaparro separate scanned document in the chart. PMH, PSH, FH and SH has documented in the EHR. EXAM CONSTITUTIONAL General Appearance: Normal, well developed, well nourished, no obvious distress Ability to Communicate: communicates appropriately. HEAD AND FACE Appearance and Symmetry: Normal, no scalp or facial scarring or suspicious lesions. Paranasal sinuses tenderness: Normal, Paranasal sinuses non tender EARS Clinical speech studio receptionist threshold: Normal, able to hear normal speech. Auricle: Normal, Auricles without scars, lesions, masses. External auditory canal: Normal, External auditory canal normal. Tympanic membrane: Normal, Tympanic membranes normal without swelling or erythema. Tympanic membrane mobility: Normal, Normal tympanic membrane mobility. NASAL ENDOSCOPY The risks and benefits were reviewed with the patient. The nose was sprayed with lidocaine and phenylephrine. The following areas were examined: floor, roof, middle and inferior turbinates, middle and inferior meatus, sphenoethmoidal recess, nasopharynx and septum. The nasal scope passed without difficulty with the findings noted in the exam. NOSE (speculum or scope) Architecture: Normal, Grossly normal external nasal architecture with no masses or lesions. Mucosa: Normal mucosa, No polyps or masses. Septum: Normal, Septum non-obstructing. Turbinates: Normal, No turbinate abnormalities ORAL CAVITY AND OROPHARYNX Lips: Normal. Dental and gingiva: Normal, No obvious dental or gingival disease. Mucosa: Normal, Moist mucous membranes. Tongue: Normal, Tongue mobile with no mucosal abnormalities Hard and soft palate: Normal, Hard and soft palate without cleft or mucosal lesions. Oral pharynx: Normal, Posterior pharynx without lesions or remarkable asymmetry. Saliva: Normal, Clear saliva. Masses: Normal, No palpable masses or pathologically enlarged lymph nodes. NECK Masses/lymph nodes: Normal, No worrisome neck masses or lymph nodes. Salivary glands: Normal, Parotid and submandibular glands. Trachea and larynx position: Normal, Trachea and larynx midline. Thyroid: Normal, No thyroid abnormality. Tenderness: Normal, No cervical tenderness. Suppleness: Normal, Neck supple NEUROLOGICAL Speech pattern: Normal, Proasaic RESPIRATORY Symmetry and Respiratory effort: Normal, Symmetric chest movement and expansion with no increased intercostal retractions or use of accessory muscles. IMPRESSION Possible foreign body in the left maxillary sinus by history and Panorex. Exam was unremarkable. RECOMMENDATION Will obtain CT sinus. I explained that the dental xray doesn't help me locate the lesion. Shay Barrientos MD documented in this encounter Plan of Treatment Not on filedocumented as of this encounter Procedures Procedure Name Priority Date/Time Associated Diagnosis Comme nts CT SINUS W/O Routine 12/14/2017 1:42 PM Sinus pressure Results for this CONTRAST CDT procedure are i n the results section. documented in this encounter Results CT Sinus w/o Contrast (12/14/2017 1:42 PM CDT) Anatomical Region Laterality Modality Sinus, SUBRAD CT NEURO, SUBRAD CT NEURO, UMP CT NEURO, Computed Tomography RAD CT Specimen (Source) Anatomical Location Collection Method / Collectio n Time Received Time / Laterality Volume Impressions 12/15/2017 1:26 PM CDT CONCLUSION: 1. ??Minimal circumferential inflammator y mucosal thickening in the right maxillary sinus. 2. ??No air-fluid levels. Narrative 12/15/2017 1:26 PM CDT [facility] CT SINUS WO CONTRAST 12/14/2017 1:42 PM INDICATION: Sinus pressure left. TECHNIQUE: Direct thin section axial CT with coronal and sagittal reconstruction. Dose reduction techniques were used. COMPARISON: None. FINDINGS: POSTOPERATIVE CHANGES: None apparent. FRONTAL SINUSES: ??Hypoplastic and clear . 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 Trace inflammatory mucosal thickening on the right. SPHENOID SINUSES: Clear. MAXILLARY SINUSES: Minimal circumferenti al mucosal thickening in the right maxillary sinus. The left maxillary sinus is clear. No air-fluid levels. The floors of the maxillary sinuses are intact. NASAL CAVITY/SKULL BASE: Leftward bowing of the nasal septum without focal defect. Unremarkable nasal turbinates. The cribriform plate is intact and symmetric. The anterior clinoid processes are not pneumatized. PARANASAL SINUS DRAINAGE PATHWAYS: ??The paranasal sinus drainage pathways are widely patent. NON-SINUS STRUCTURES: No intraorbital ma ss. The visualized intracranial contents and mastoids are unremarkable. Procedure Note Shahzad Javed MD - 10/29/2020Forma tting of this note might be different from the original. [facility] CT SINUS WO CONTRAST 12/14/2017 1:42 PM INDICATION: Sinus pressure left. TECHNIQUE: Direct thin section axial CT with coronal and sagittal reconstruction. Dose reduction techniques were used. COMPARISON: None. FINDINGS: POSTOPERATIVE CHANGES: None apparent. FRONTAL SINUSES: Hypoplastic and clear. ETHMOID SINUSES: Osteoid osteoma in the right ethmoid air cells. Trace inflammatory mucosal thickening on the right. SPHENOID SINUSES: Clear. MAXILLARY SINUSES: Minimal circumferenti al mucosal thickening in the right maxillary sinus. The left maxillary sinus is clear. No air-fluid levels. The floors of the maxillary sinuses are intact. NASAL CAVITY/SKULL BASE: Leftward bowing of the nasal septum without focal defect. Unremarkable nasal turbinates. The cribriform plate is intact and symmetric. The anterior clinoid processes are not pneumatized. PARANASAL SINUS DRAINAGE PATHWAYS: The p aranasal sinus drainage pathways are widely patent. NON-SINUS STRUCTURES: No intraorbital ma ss. The visualized intracranial contents and mastoids are unremarkable. IMPRESSION: CONCLUSION: 1. Minimal circumferential inflammatory mucosal thickening in the right maxillary sinus. 2. No air-fluid levels. Shay Abrams MD IMG CT ORDERABLES documented in this encounter Visit Diagnoses Diagnosis Sinus pressure Other diseases of nasal cavity and sinus es documented in this encounter Care Teams Supervisor Dog License Officer Relationship Specialty Start Date End Date Danette Shepherd MD PCP - General Family Practice 09/13/13 12/16/21 [facility] [address] [place] [address] Reba Veliz Assigned OBGYN Provider 03/15/20 07/06/20 DO Silvina [address] [facility] [address] [place] [address] Jairon Greene, Assigned Neuroscience 03/15/20 10/26/20 Provider [address] [facility] [address] [place] [address] documented as of this encounter
--- OUTSIDE RECORDS SUMMARY | 2022-04-10 23:04 | XMS_ITS | Encounter Summary ---
:1980 Author Organization [facility] Address [address] [place] [address] Care Team Providers Name Role Phone Danette Shepherd MD Primary Care Provider Reason for Visit Reason Comments EEG Encounter Details Date Type Department Care Team Description 05/03/2019 [facility] Jairon Greene EEG Visit [address] [place], [place] [id number] [place], [place] [phone] (Wo rk) Social History Tobacco Use Types Packs/Day Years Used Date Smoking Tobacco: Every Day Cigarettes 5 Smokeless Tobacco: Never Comments: 5-6 cigarettes daily Alcohol Use Standard Drinks/Week Comments No 0 (1 standard drink = 0.6 oz pure alcoho l) Sex Assigned at Date Recorded Not on file documented as of this encounter Progress Notes Ailyn Stewart - 05/03/2019 1:00 PM CST CPT 06597-44 OP/3hr Video EEG [facility] [place] Dr. Disla reading ING MECHANIC documented in this encounter Procedure Notes Floyd Disla MD - 05/03/2019 5:07 PM CSTAssociated Order(s): EEG [facility] EEG #[id number] (Out-Patient Video-EEG Monitoring) Name: Jewell Estrella : 1980 Procedure Date: 05/03/2019 Duration of Recordin hours, 56 minutes CLINICAL SUMMARY: This diagnostic video-EEG monitoring procedure is performed in evaluation of encephalopathy in Jewell Estrella. She was not reported to be receiving medications known to affect electrocerebral function at the time of this recording. TECHNICAL SUMMARY: This continuous EEG monitoring procedure was performed with 23 scalp electrodes in 10-20 system placements, and additional scalp, precordial and other surface electrodes used for electrical referencing and artifact detection. A single channel of EKG was recorded for purposes of analyzing EKG artifacts in the EEG channels. Video monitoring was utilized and periodically reviewed by dental technologist and the physician for electroclinical correlation. INTERICTAL EEG ACTIVITIES: During maximal waking, there was a symmetric, well- modulated, approximately 9.5 Hz posterior dominant rhythm, which was attenuated on eye opening, at times with periods of fast alpha variant. Lower amplitude faster activities predominated anteriorly. Drowsiness was manifested by predominance of centrally maximum semirhythmic theta slowing and dropout of the posterior dominant rhythm during deeper drowsiness. There was symmetric bilateral driving in response to photic stimulation. Hyperventilation did not induce any definite response. No interictal epileptiform abnormalities were recorded. ICTAL RECORDINGS: No electrographic seizures and no paroxysmal behavioral events occurred during this procedure. SUMMARY OF VIDEO-EEG MONITORING: The interictal recording was normal in waking and drowsiness. No pathological slowing, no interictalepileptiform abnormalities, no electrographic seizures and no paroxysmal behavioral events were recorded during the period of monitoring. Clinical correlation is recommended. Floyd Disla M.D., Professor of Neurology [place]: [place] Name: JEWELL ESTRELLA Account: [id number] : 1980 Procedure Date: 05/03/2019 Document: [id number] ING MECHANIC documented in this encounter Plan of Treatment Scheduled Orders Name Type Priority Associated Diagnoses Order S chedule CHARGE: Video EEG < Procedures Routine Spell of behavior karolyn nge Ordered: 05/03/2019 12 hours ([id number]) documented as of this encounter Procedures Procedure Name Priority Date/Time Associated Diagnosis Comme nts EEG ROUTINE 05/03/2019 5:07 PM Results f or this FRAMING MECHANIC procedure are i n the results section . documented in this encounter Results EEG (05/03/2019 5:07 PM FRAMING MECHANIC) Procedure Note Floyd Disla MD - 05/03/2019 5:07 PM CST [facility] [place] #[id number] (Out-Patient Vi sergo-EEG Monitoring) Name: Jewell Estrella : 1980 Procedure Date: 05/03/2019 Duration of Recordin hours, 56 minut es CLINICAL SUMMARY: This diagnostic video- EEG monitoring procedure is performed in evaluation of encephalopathy in Jewell Estrella. She was not reported to be receiving medications known to affect electrocerebral function at the time of this recording. TECHNICAL SUMMARY: This continuous EEG m onitoring procedure was performed with 23 scalp electrodes in 10-20 system placements, and additional scalp, precordial and other surface electrodes used for electrical referencing and artifact detection. A single channel of EKG was recorded for purposes of analyzing EKG artifacts in the EEG channels. Video monitoring was utilized and periodically reviewed by dental technologist and the physician for electroclinical correlation. INTERICTAL EEG ACTIVITIES: During judith l waking, there was a symmetric, well- modulated, approximately 9.5 Hz posterior dominant rhythm, which was attenuated on eye opening, at times with periods of fast alpha variant. Lower amplitude faster activities predom inated anteriorly. Drowsiness was manifested by predominance of centrally maximum semirhythmic theta slowing and dropout of the posterior dominant rhythm during deeper drowsiness. There was symmetric bilateral driving in response to photic stimulation. Hyperventilation did not induce any definite response. No interictal epileptiform abnormalities were recorded. ICTAL RECORDINGS: No electrographic seiz ures and no paroxysmal behavioral events occurred during this procedure. SUMMARY OF VIDEO-EEG MONITORING: The interictal recording was normal in w aking and drowsiness. No pathological slowing, no interictal epileptiform abnormalities, no electrographic seizures and no paroxysmal behavioral events were recorded during the period of monitoring. Clinical correlation is recommended. Floyd Disla M.D., Professor of Neur ology [place]: [place] Name: JEWELL ESTRELLA MRN: [id number] Account: [id number] : 1980 Procedure Date: 05/03/20 19 Document: [id number] Floyd Disla MD IMG EEG ORDERABLES documented in this encounter Visit Diagnoses Diagnosis Spell of behavior change Other general symptoms documented in this encounter Care Teams Irrigation Engineer Relationship Specialty Start Date End Date Danette Shepherd MD PCP - General Family Practice 09/13/13 12/16/21 [facility] [address] [place] [id number] documented as of this encounter
--- OUTSIDE RECORDS SUMMARY | 2022-04-10 23:04 | XMS_ITS | Encounter Summary ---
:1980 Author Organization [facility] Address [address] [place] [address] Care Team Providers Name Role Phone Clinic, [facility] Primary Care Provider [phone] Reason for Visit Reason Comments Back Pain Encounter Details Date Type Department Care Team Description 12/17/2021 Emergency [facility] Mitra Carroll, Beryl fall bilateral low [facility] back pain with [address] [facility] bilateral sciatica [facility] [id number] [facility] [phone] [place], [place] [phone] (Wo rk) Social History Tobacco Use Types [...] CDT Inhaled Oxygen Concentration - - Weight - - Height - - Body Mass Index - - documented in this encounter Discharge Instructions Discharge InstructionsMitra Carroll MD - 12/17/2021 6:12 AM CDT Please see your PCP in 2-3 days for a recheck. If you have increasing pain, loss of bowel or bladderfunction, numbness in your groin, unable to walk, fevers >101 or other acute changes, return to the ED. Follow-up with neurosurgery for ongoing management of your back pain. Lyme disease testing is pending. Call your primary doctor for follow-up. May use Flexeril as needed for pain. Do not mix with alcohol. Her LFTs were mildly elevated, concerned this is related to your alcohol use. Consider alcohol cessation. Discharge Instructions Back Pain You were seen today for back pain. Back pain can have many causes, but most will get better without surgery or other specific treatment. Sometimes there is a herniated (???slipped?? ) disc. We do not usually do MRI scans to look for these right away, since most herniated discs will get better on theirown with time. Today, we did not find any evidence that your back pain was caused by a serious condition. However, sometimes symptoms develop over time and cannot be found during an emergency visit, soit is very important that you follow up with your primary provider. Generally, every Emergency Department visit should have a follow-up clinic visit with either a primary or a specialty clinic/provider. Please follow-up as instructed by your emergency provider today. Return to the Emergency Department if: You develop a fever with your back pain. You have weakness or change in sensation in one or both legs. You lose control of your bowels or bladder, or cannot empty your bladder (cannot pee). Your pain gets much worse. Follow-up with your provider: Unless your pain has completely gone away, please make an appointment with your provider within one week. Most of the routine care for back pain is available in a clinic and not the Emergency Department. You may need further management of your back pain, such as more pain medication, imaging such as an X-ray or MRI, or physical therapy. What can I do to help myself? Remain Active -- People are often afraid that they will hurt their back further or delay recovery byremaining active, but this is one of the best things you can do for your back. In fact, staying in bed for a long time to rest is not recommended. Studies have shown that people with low back pain recover faster when they remain active. Movement helps to bring blood flow to the muscles and relieve muscle spasms as well as preventing loss of muscle strength. Heat -- Using a heating pad can help with low back pain during the first few weeks. Do not sleep with a heating pad, as you can be burned. Pain medications - You may take a pain medication such as Tylenol?? (acetaminophen), Advil??, Motrin?? (ibuprofen) or Aleve?? (naproxen). If you were given a prescription for medicine here today, be sure to read all of the information (including the package insert) that comes with your prescription. This will include important information about the medicine, its side effects, and any warnings that you need to know about. The pharmacist who fills the prescription can provide more information and answer questions you may have about the medicine. If you have questions or concerns that the pharmacist cannot address, please call or return to the Emergency Department. Remember that you can always come back to the Emergency Department if you are not able to see your regular provider in the amount of time listed above, if you get any new symptoms, or if there is anything that worries you. documented in this encounter Medications at Time of Discharge Medication Sig Dispensed Refills Start Date End Date benzoyl peroxide 5 % Apply topically 45 g 0 06/11/2010 gelIndications: daily. Dermatitis celecoxib (CELEBREX) 200 Take 200 mg by mouth 0 MG capsule daily clindamycin-benzoyl Apply topically 2 30 g 11 0 peroxide (BENZACLIN) times daily. gelIndications: Dermatitis MIRENA 20 MCG/24HR IU None Entered 0 08/22/2005 IUDIndications: Contraception morphine (JS) 30 MG Take 30 mg by mouth 0 2 times daily oxyCODONE (OXY-IR) 5 MG Take 5 mg by mouth 0 capsule every 4 hours as needed sertraline (ZOLOFT) 100 Take 100 mg by mouth 0 MG tablet daily Tazarotene (TAZORAC) 0.1 Externally apply 1 1 Tube 0 % CREAIndications: Acne dose topically At Bedtime. cyclobenzaprine Take 1 tablet (10 10 tablet 0 12/17/2021 (FLEXERIL) 10 MG tablet mg) by mouth 3 times daily as needed for muscle spasms documented as of this encounter ED Notes Mary Dangelo RN - 12/17/2021 6:11 AM CDT Pt ambulated up and down hallway x2. Pt states she feels good mentally on her feet but does not trust her feet. Steady gate, denies dizziness. Karla Ho RN - 12/17/2021 1:27 AM CDT Pt able to walk to bathroom with SBA Elma Guevara RN - 12/17/2021 12:37 AM CDT Pt aoc4, ABCs intact. Pt arrives via EMS for evaluation of acute on chronic back pain. 25 fentanyl given via EMS. Pt states that she drinks to numb the pain because I dont want to be on pain medication. Hayes Shaw RN - 12/17/2021 12:36 AM CDT Bed: ED14 Expected date: Expected time: Means of arrival: Comments: [id number] Mitra Carroll MD - 12/17/2021 12:36 AM CDT History Chief Complaint: Back Pain HPI Jewell Lambert is a 41 year old female with history of a lesion of the sacral region who presents with back pain. The patient states that tonight she fell forward and cut herself before hitting the ground and did not hit her head. She states she has been dealing with back pain for 3 months or more that causes her to be unable to walk because her legs are numb and swollen. She notes that the tingling comes down from her back and diffuses down into her legs. She has not been eating as much. She deniesfever, incontinence, dysuria, frequency, chest pain, or shortness of breath. She has been using a walker at baseline. She states that she had 3-4 beers tonight. She had a back fusion done and has 2 stevo ficial discs. She has not seen a doctor for this because her back surgeon is no longer practicing. She denies any blood thinner or IV drug use. She states that she will not use pain pills. Review of Systems All other systems reviewed and are negative. Allergies: Venlafaxine Medications: celecoxib morphine sertraline Quetiapine Hydroxyzine levonorgestrel Past Medical History: ADHD Tobacco use KIM Lesion of sacral region PTSD IUD migration Cervical dyplasia Depression Past Surgical History: ACL repair Lumbar arthoplasty and fusion [place] teeth extraction Leep procedure Family History: Mother-Anxiety Social History: The patient presents to the ED alone. Physical Exam Patient Vitals for the past 24 hrs: BP Temp Temp src Pulse Resp SpO2 12/17/21 0440 -- -- -- -- -- 100 % 12/17/21 0435 123/81 -- -- 99 -- -- 12/17/21 0315 124/87 -- -- 101 -- 100 % 12/17/21 0305 -- -- -- -- -- 98 % 12/17/21 0300 116/80 -- -- 108 -- 98 % 12/17/21 0230 -- -- -- -- -- 100 % 12/17/21 0200 -- -- -- -- -- 100 % 12/17/21 0145 -- -- -- -- -- 100 % 12/17/21 0130 -- -- -- -- -- 99 % 12/17/21 0115 -- -- -- -- -- 98 % 12/17/21 0100 -- -- -- -- -- 99 % 12/17/21 0041 (!) 130/100 -- -- -- -- -- 12/17/21 0039 -- 98.4 ??F (36.9 ??C) Oral 120 20 98 % Physical Exam General: Resting on the bed. Head: No obvious trauma to head. Ears, Nose, Throat: External ears normal. Nose normal. Eyes: Conjunctivae clear. Pupils are equal, round, and reactive. Neck: Normal range of motion. Neck supple. CV: Regular rate and rhythm. No murmurs. Respiratory: Effort normal and breath sounds normal. No wheezing or crackles. Gastrointestinal: Soft. No distension. There is no tenderness. Musculoskeletal: Normal range of motion. Non tender extremities to palpations. Nontender over the midline lumbar spine without step-off or deformity. Tenderness over the SI joints bilaterally. Neuro: Alert. Moving all extremities appropriately. Normal speech. No saddle anesthesia. 5 out of 5 bilateral lower extremity strength. 2+ DP pulses. Sensation intact to light touch bilateral. She reports decreased sensation bilaterally but symmetric at this time. Achilles reflexes intact. Skin: Skin is warm and dry. No rash noted. Emergency Department Course Imaging: Lumbar spine MRI w & w/o contrast - surgery <10yrs Preliminary Result IMPRESSION: 1. Multilevel instrumentation/fusion extending from L3 down to S1, as detailed above. 2. No significant central spinal canal or neural foraminal stenosis. 3. Question subtle enhancement involving a few lower thoracic/upper spinal nerve roots. These findings may reflect artifact, a sequela of postoperative instrumentation, arachnoiditis, an infectious/inflammatory process (such as Guillain-Hanover syndrome, Lyme disease or chronic inflammatory demyelinating polyneuropathy) or even leptomeningeal metastaticdisease (if the patient has a history of malignancy), among other etiologies. Report per radiology Laboratory: Labs Ordered and Resulted from Time of ED Arrival to Time of ED Departure COMPREHENSIVE METABOLIC PANEL - Abnormal Result Value Sodium 132 (*) Potassium 5.0 Creatinine 0.35 (*) Urea Nitrogen 3.8 (*) Chloride 96 (*) Carbon Dioxide (CO2) 23 Anion Gap 13 Glucose 82 Calcium 8.6 Protein Total 6.8 Albumin 3.2 (*) Bilirubin Total 0.4 Alkaline Phosphatase 163 (*) AST 138 (*) ALT 74 (*) GFR Estimate >90 ETHYL ALCOHOL LEVEL - Abnormal Alcohol ethyl 0.10 (*) ROUTINE UA WITH MICROSCOPIC REFLEX TO CULTURE - Abnormal Color Urine Straw Appearance Urine Clear Glucose Urine Negative Bilirubin Urine Negative Ketones Urine Negative Specific [place] Urine 1.002 (*) Blood Urine Negative pH Urine 6.0 Protein Albumin Urine Negative Urobilinogen Urine Normal Nitrite Urine Negative Leukocyte Esterase Urine Negative RBC Urine 0 WBC Urine 0 Squamous Epithelials Urine 1 CRP INFLAMMATION - Abnormal CRP Inflammation 12.54 (*) ISTAT HCG QUALITATIVE POCT - Normal HCG Qualitative POCT Negative CBC WITH PLATELETS AND DIFFERENTIAL WBC Count 7.0 RBC Count 4.38 Hemoglobin 13.3 Hematocrit 42.0 MCV 96 MCH 30.4 MCHC 31.7 RDW 12.9 Platelet Count 178 % Neutrophils 63 % Lymphocytes 25 % Monocytes 10 % Eosinophils 1 % Basophils 1 % Immature Granulocytes 0 NRBCs per 100 WBC 0 Absolute Neutrophils 4.4 Absolute Lymphocytes 1.7 Absolute Monocytes 0.7 Absolute Eosinophils 0.1 Absolute Basophils 0.1 Absolute Immature Granulocytes 0.0 Absolute NRBCs 0.0 LYME DISEASE TOTAL ABS BLD WITH REFLEX TO CONFIRM CLIA Emergency Department Course: Reviewed: I reviewed nursing notes, vitals, past medical history and Care Everywhere Assessments: 0130 I obtained history and examined the patient as noted above. 0314 I rechecked the patient and explained findings. 0553 I rechecked patient and updated them on findings. Interventions: 0248 NS Bolus 1000mL IV 0249 Tylenol 975mg PO 0324 Morphine 4mg IV 0335 Gadavist 5.5mL IV Disposition: The patient was discharged to home. Impression & Plan Medical Decision Makin-year-old female with history of chronic back pain, prior surgical management of her low back presents with ongoing back pain. Vital signs largely unremarkable. Afebrile. Broad differential was pursued including but not limited to infection, electrolyte, metabolic, renal dysfunction, alcohol intoxication, UTI, pyelonephritis, nephrolithiasis, epidural abscess, epidural hematoma, discitis, cauda equina, fracture dislocation, sprain strain, etc. Patient is initially a vague historian given her intoxication. alcohol level 0.1. She reports a fall today but denies any injuries. She reports 3+ months of ongoing back pain. CBC without leukocytosis or anemia. BMP with no acute electrolyte, metabolic or renal dysfunction of note. Patient is quite petite likely accounting for low creatinine and BUN. LFTsshow slight elevation AST compared to ALT consistent with alcohol use. UA without evidence of acute infection, no blood indicate nephrolithiasis. Given her complex history I did obtain MRI. MRI shows multilevel fusion. No significant central canal or neuroforaminal stenosis. Questionable enhancement of the spinal nerve roots. May be artifact versus broad differential. Patient has no history of malignancy. She has no fever or chills, CRP is mildly elevated, unclear significance given the patient has no fever, no high risk features to indicate infection. MRI fortunately had no evidence of epidural abscess, discitis, etc. Patient is moving neck freely, no signs of meningitis or encephalitis. No indication for LP at this time. Patient does live in the [facility], Lyme testing was obtained and pending. Advised that she needs to follow-up with PCP regarding this. Exam is not consistent with Guillain-Eller??syndrome as no progressive numbness or weakness. Patient has had pain for 3+ months. Time course does not seem appropriate for GBS or other demyelinating disease. I suspect this is likely artifact. Sheis moving her legs without prompting. Appears to have full strength. No perceived neurologic deficitat this time. We will have her follow-up with neurosurgery. She is ambulatory in the ER. She wished to walk longer according to nursing even. She understands to be nonfocal on her exam. It appears thather intoxication led her to the ER for assessment tonight but this is a chronic ongoing issue for the patient. She appears to be clinically sober. Discussed limiting alcohol use. Patient was discharged. Close follow-up encouraged. Patient plans a taxi home. Diagnosis: ICD-10-CM 1. Chronic bilateral low back pain with bilateral sciatica M54.42 M54.41 G89.29 Discharge Medications: New Prescriptions CYCLOBENZAPRINE (FLEXERIL) 10 MG TABLET Take 1 tablet (10 mg) by mouth 3 times daily as needed for muscle spasms Scribe Disclosure: Quentin Campos, am serving as a scribe at 1:01 AM on 12/17/2021 to document services personally performed by Mitra Carroll MD based on my observations and the provider's statements to me. Mitra Carroll MD 12/17/2123 Mitra Carroll MD 12/17/2123 documented in this encounter Miscellaneous Notes Result Encounter Note - Dru Gusman RN - 12/17/2021 6:45 AM CDT Final result for Lyme Disease Total Abs Bld with Reflex to Confirm CLIA is NEGATIVE. No change in treatment per [facility] ED Lab Result Lyme Disease protocol. documented in this encounter Plan of Treatment Not on filedocumented as of this encounter Procedures Procedure Name Priority Date/Time Associated Comments Diagnosis LYME DISEASE TOTAL ABS STAT 12/17/2021 6:24 AM Results for this BLD WITH REFLEX TO CDT procedure are in CONFIRM CLIA the results section. MR LUMBAR SPINE W/O & STAT 12/17/2021 4:29 AM Results for this W CONTRAST CDT procedure are i n the results section. ISTAT HCG QUALITATIVE STAT 12/17/2021 2:14 AM Results for this POCT CDT procedure are in the results section. ROUTINE UA WITH STAT 12/17/2021 2:06 AM Result s for this MICROSCOPIC REFLEX TO CDT proced ure are in CULTURE the results section. CBC WITH PLATELETS AND STAT 12/17/2021 2:05 AM Results for this DIFFERENTIAL CDT procedure are i n the results section. CBC WITH PLATELETS & STAT 12/17/2021 2:05 AM R esults for this DIFFERENTIAL CDT procedure are i n the results section. CRP INFLAMMATION STAT 12/17/2021 2:05 AM Resul ts for this CDT procedure are i n the results section. COMPREHENSIVE STAT 12/17/2021 2:05 AM Results for this METABOLIC PANEL CDT procedure ar e in the results section. ETHYL ALCOHOL LEVEL STAT 12/17/2021 2:05 AM Re sults for this CDT procedure are i n the results section. documented in this encounter Results Lyme Disease Total Abs Bld with Reflex to Confirm CLIA (12/17/2021 6:24 AM CDT) P athologist Signature Lyme Disease 0.12 <0.90 12/17/2021 [facility] Antibodies 12:24 PM CDT CORE/PROT/ENDO Total Comment: Non-reactive, Absence of detect able Borrelia burgdorferi antibodies. A non-reactive result does not exclude the possibility of Borrelia burgdorferi infection. If early Lyme disease is susp ected, a second sample should be collected and tested 2 to 4 weeks later. Specimen Anatomical Collection Method / Collection Time Recei gisele Time (Source) Location / Volume Laterality Blood VENOUS LINE / Venipuncture / 12/17/2021 6:24 6:27 Unknown Unknown AM CDT AM CDT Mitra Carroll MD LAB - BLOOD ORDERABLES Performing Organization Address City/State/ZIP Code Phon e Number [facility] CORE/PROT/ENDO Specialty [place], [place] [address] Core/Prot/Endo [address] [facility] [address], Room [facility]-[employer] Lumbar spine MRI w & w/o contrast - surgery <10yrs (12/17/2021 4:29 AM CDT) Anatomical Region Laterality Modality Spine, SUBRAD MR NEURO, [facility] MR SPINE, RAD MR Magnetic Resonance Specimen (Source) Anatomical Collection Method Collection Time Re ceived Time Location / / Volume Laterality 12/17/2021 3:26 AM CDT Impressions 12/17/2021 6:27 AM CDT IMPRESSION: 1. ??Multilevel instrumentation/fusion e xtending from L3 down to S1, as detailed above. 2. ??No significant central spinal canal or neural foraminal stenosis. 3. ??Question subtle enhancement involvi ng a few lower thoracic/upper spinal nerve roots. These findings may reflect artifact, reactive change/sequela of postoperative instrumentation, arachnoiditis, an infectious/inflammatory process (such as Guillain-Hanover syndrome, Lyme disease or chronic inflammatory demyelinating polyneuropathy) or even leptomeningeal metastatic disease (if the patient has a history of malignancy), among other etiologies. Narrative 12/17/2021 6:27 AM CDT EXAM: MR LUMBAR SPINE WITHOUT AND WITH CONTRAST LOCATION: [facility] DATE/TIME: 12/17/2021, 3:26 AM INDICATION: Low back pain, numb on both legs, history of fusion in 2008. COMPARISON: None. CONTRAST: 5.5. mL Gadavist. TECHNIQUE: Routine Lumbar Spine MRI with out and with IV contrast. FINDINGS: Nomenclature is based on five lumbar-typ e vertebral bodies. Patient is status post L3-S1 anterior approach fusion. Extensive metallic hardware artifact degrades evaluation of the adjacent structures. No rmal vertebral body heights identified i nvolving the L1, L2 and sacral vertebral bodies. The L3, L4 and L5 vertebral bodies are obscured. Overall, there is a normal marrow signal pattern. Degenerative Schmorl's nodes identified involving the superior end plates of L1 and L2. Normal distal spina l cord. The conus terminates at L2. Question subtle enhancement involving a few cauda equina nerve roots within the upper lumbar spinal canal as seen at the levels of T12 and L1 (images 1-11 series 16). No definite acute extraspinal abnormality. Unremarkable visualized bony pelvis. T12-L1: Disc desiccation and disc height loss. Trace concentric disc bulge. Ligamentum flavum thickening. No significant central spinal canal or neural foraminal stenosis. L1-L2: Normal disc height and signal. Mi ld facet arthropathy and ligamentum flavum thickening. No significant disc herniation. No canal or foraminal stenosis. Mild prominence of the dorsal epidural fat. L2-L3: Minimal disc desiccation and disc height loss. Mild facet arthropathy. Ligamentum flavum thickening. Prominence of the dorsal epidural fat. Trace concentric disc bulge. No significant canal stenosis. No neural foraminal stenosis. L3-L4: Anterior fusion. Metallic hardwar e artifact degrades evaluation. Mild facet arthropathy and ligamentum flavum thickening. Mild prominence of the dorsal epidural fat. No definite high-grade centra l spinal canal stenosis. The neural fora men are not well assessed. L4-L5: Bilateral facet arthropathy. Liga mentum flavum thickening. Mild prominence of the dorsal epidural fat. Anterior fusion. Metallic hardware artifact degrades evaluation. No definite high-grade cent ral spinal canal stenosis. The neural fo ramen are not well assessed, however, there is no high-grade neural foraminal stenosis. L5-S1: Interbody spacer placement. [place] us fusion. Bilateral facet arthropathy. Dorsal osteophytic ridging along the midline. No significant central spinal canal stenosis. No significant neural foraminal stenosis. Procedure Note Nick Kathleen MD - 12/17/2021Form atting of this note might be different from the original. EXAM: MR LUMBAR SPINE WITHOUT AND WITH C ONTRAST LOCATION: [facility] DATE/TIME: 12/17/2021, 3:26 AM INDICATION: Low back pain, numb on both legs, history of fusion in 2008. COMPARISON: None. CONTRAST: 5.5. mL Gadavist. TECHNIQUE: Routine Lumbar Spine MRI with out and with IV contrast. FINDINGS: Nomenclature is based on five lumbar-typ e vertebral bodies. Patient is status post L3-S1 anterior approach fusion. Extensive metallic hardware artifact degrades evaluation of the adjacent structures. Normal vertebral body heights identified involving the L1, L2 and sacral vertebral bodies. The L3, L4 and L5 vertebral bodies are obscured. Overall, there is a normal marrow signal pattern. Degenerative Schmorl's nodes identified involving the superior endplates of L1 and L2. Normal distal spinal cord. The conus terminates at L2. Question subtle enhancement involving a few cauda equina nerve roots within the upper lumbar spinal canal as seen at the levels of T12 and L1 (images 1-11 series 16). No definite acute extraspinal abnormality. Unremarkable visualized bony pelvis. T12-L1: Disc desiccation and disc height loss. Trace concentric disc bulge. Ligamentum flavum thickening. No significant central spinal canal or neural foraminal stenosis. L1-L2: Normal disc height and signal. Mi ld facet arthropathy and ligamentum flavum thickening. No significant disc herniation. No canal or foraminal stenosis. Mild prominence of the dorsal epidural fat. L2-L3: Minimal disc desiccation and disc height loss. Mild facet arthropathy. Ligamentum flavum thickening. Prominence of the dorsal epidural fat. Trace concentric disc bulge. No significant canal stenosis. No neural foraminal stenosis. L3-L4: Anterior fusion. Metallic hardwar e artifact degrades evaluation. Mild facet arthropathy and ligamentum flavum thickening. Mild prominence of the dorsal epidural fat. No definite high-grade central spinal canal stenosis. The neural foramen are not well assessed. L4-L5: Bilateral facet arthropathy. Liga mentum flavum thickening. Mild prominence of the dorsal epidural fat. Anterior fusion. Metallic hardware artifact degrades evaluation. No definite high-grade central spinal canal stenosis. The neural foramen are not well assessed, however, there is no high-grade neural foraminal stenosis. L5-S1: Interbody spacer placement. [place] us fusion. Bilateral facet arthropathy. Dorsal osteophytic ridging along the midline. No significant central spinal canal stenosis. No significant neural foraminal stenosis. IMPRESSION: 1. Multilevel instrumentation/fusion ext ending from L3 down to S1, as detailed above. 2. No significant central spinal canal o r neural foraminal stenosis. 3. Question subtle enhancement involving a few lower thoracic/upper spinal nerve roots. These findings may reflect artifact, reactive change/sequela of postoperative instrumentation, arachnoiditis, an infectious/inflammatory process (such as Guillain-Hanover syndrome, Lyme disease or chronic inflammatory demyelinating polyneuropathy) or even leptomeningeal metastatic disease (if the patient has a history of malignancy), among other etiologies. Mitra Carroll MD IMG MRI ORDERABLES iStat HCG Qualitative , POCT (12/17/2021 2:14 AM CDT) [facility] Method Time Signature HCG Negative Negative, 12/17/2021 [facility] Qualitative Indeterminate 2:27 AM CDT POC POCT Specimen Anatomical Collection Method Collection Time Receive d Time (Source) Location / / Volume Laterality Blood, venous BLOOD SPECIMEN / 12/17/2021 2:14 AM 11/22 2:27 Unknown CDT AM CDT Mitra Carroll MD LAB - BEAKER POCT Performing Organization Address City/State/ZIP Code Phon e Number [place] [address] Care Lab [address] Lab (1st floor, no room number) (ABNORMAL) UA with Microscopic reflex to Culture (12/17/2021 2:06 AM CDT) [facility] Method Time Signature Color Urine Straw Colorless, 12/17/2021 [facility] Straw, Light 2:17 AM CDT Yellow, Yellow Appearance Urine Clear Clear 12/17/2021 [facility] Y 2:17 AM CDT Glucose Urine Negative Negative 12/17/2021 [facility] mg/dL 2:17 AM CDT Bilirubin Urine Negative Negative 12/17/2021 [facility] 2:17 AM CDT Ketones Urine Negative Negative 12/17/2021 [facility] mg/dL 2:17 AM CDT Specific [place] 1.002 (L) 1.003 - 12/17/2021 [facility] Y Urine 1.035 2:17 AM CDT Blood Urine Negative Negative 12/17/2021 [facility] 2:17 AM CDT pH Urine 6.0 5.0 - 7.0 12/17/2021 [facility] 2:17 AM CDT Protein Albumin Negative Negative 12/17/2021 [facility] Urine mg/dL 2:17 AM CDT Urobilinogen Normal Normal, 2.0 12/17/2021 [facility] Urine mg/dL 2:17 AM CDT Nitrite Urine Negative Negative 12/17/2021 LABORATORY 2:17 AM CDT Leukocyte Negative Negative 12/17/2021 LABORATORY Esterase Urine 2:17 AM CDT RBC Urine 0 <=2 /HPF 12/17/2021 [facility] 2:17 AM CDT WBC Urine 0 <=5 /HPF 12/17/2021 [facility] 2:17 AM CDT Squamous 1 <=1 /HPF 12/17/2021 [facility] Epithelials 2:17 AM CDT Urine Specimen Anatomical Collection Method Collection Time Receive d Time (Source) Location / / Volume Laterality Urine MID-STREAM URINE Non-blood 12/17/2021 2:06 AM 12/17 2:10 SPECIMEN / Unknown Collection / CDT AM CDT Unknown Narrative [facility] - 12/17/2021 2:17 AM CDT Urine Culture not indicated Mitra Carroll MD LAB - URINE ORDERABLES Performing Organization Address City/State/ZIP Code [place] [phone] Care Lab [address] Lab (1st floor, no room number) (ABNORMAL) CRP inflammation (12/17/2021 2:05 AM CDT) Patholo gist Method Time Signature CRP Inflammation 12.54 (H) <5.00 12/17/2021 [facility] LAB[facility]ATOR Y mg/L 5:43 AM CDT Specimen Anatomical Collection Method / Collection Time Recei gisele Time (Source) Location / Volume Laterality Blood VENOUS LINE / Venipuncture / 12/17/2021 2:05 2:10 Unknown Unknown AM CDT AM CDT Mitra Carroll MD LAB - BLOOD ORDERABLES Performing Organization Address City/State/ZIP Code [place] [phone] Care Lab [address] Lab (1st floor, no room number) CBC with platelets and differential (12/17/2021 2:05 AM CDT) Analysis Performed At Patho logist Time Signature WBC Count 7.0 4.0 - 11.0 12/17/2021 LABORATORY 10e3/uL 2:12 AM CDT RBC Count 4.38 3.80 - 12/17/2021 [facility] 5.20 2:12 AM CDT 10e6/uL Hemoglobin 13.3 11.7 - 12/17/2021 [facility] 15.7 g/dL 2:12 AM CDT Hematocrit 42.0 35.0 - 12/17/2021 [facility] 47.0 % 2:12 AM CDT MCV 96 78 - 100 12/17/2021 [facility] fL 2:12 AM CDT MCH 30.4 26.5 - 12/17/2021 [facility] 33.0 pg 2:12 AM CDT MCHC 31.7 31.5 - 12/17/2021 [facility] 36.5 g/dL 2:12 AM CDT RDW 12.9 10.0 - 12/17/2021 [facility] 15.0 % 2:12 AM CDT Platelet Count 178 150 - 450 12/17/2021 [facility] 10e3/uL 2:12 AM CDT % Neutrophils 63 % 12/17/2021 [facility] 2:12 AM CDT % Lymphocytes 25 % 12/17/2021 [facility] 2:12 AM CDT % Monocytes 10 % 12/17/2021 [facility] 2:12 AM CDT % Eosinophils 1 % 12/17/2021 [facility] 2:12 AM CDT % Basophils 1 % 12/17/2021 [facility] 2:12 AM CDT % Immature 0 % 12/17/2021 [facility] Granulocytes 2:12 AM CDT NRBCs per 100 WBC 0 <1 /100 12/17/2021 [facility] LAB[facility] RY 2:12 AM CDT Absolute 4.4 1.6 - 8.3 12/17/2021 [facility] Neutrophils 10e3/uL 2:12 AM CDT Absolute 1.7 0.8 - 5.3 12/17/2021 [facility] Lymphocytes 10e3/uL 2:12 AM CDT Absolute 0.7 0.0 - 1.3 12/17/2021 [facility] Monocytes 10e3/uL 2:12 AM CDT Absolute 0.1 0.0 - 0.7 12/17/2021 [facility] Eosinophils 10e3/uL 2:12 AM CDT Absolute 0.1 0.0 - 0.2 12/17/2021 [facility] Basophils 10e3/uL 2:12 AM CDT Absolute Immature 0.0 <=0.4 12/17/2021 [facility] RY Granulocytes 10e3/uL 2:12 AM CDT Absolute NRBCs 0.0 10e3/uL 12/17/2021 [facility] 2:12 AM CDT Specimen Anatomical Collection Method / Collection Time Recei gisele Time (Source) Location / Volume Laterality Blood VENOUS LINE / Venipuncture / 12/17/2021 2:05 2 2:10 Unknown Unknown AM CDT AM CDT Mitra Carroll MD LAB - BLOOD ORDERABLES Performing Organization Address City/State/ZIP Code [place] [phone] Care Lab [address] Lab (1st floor, no room number) (ABNORMAL) Ethyl Alcohol Level (12/17/2021 2:05 AM CDT) Analysis Performed At Patho logist Time Signature Alcohol ethyl 0.10 (H) <=0.00 12/17/2021 [facility] g/dL 2:35 AM CDT Specimen Anatomical Collection Method / Collection Time Recei gisele Time (Source) Location / Volume Laterality Blood VENOUS LINE / Venipuncture / 12/17/2021 2:05 2 2:10 Unknown Unknown AM CDT AM CDT Mitra Carroll MD LAB - BLOOD ORDERABLES Performing Organization Address City/[facility]/ZIP Code [place] [address] Care Lab [address] Lab (1st floor, no room number) (ABNORMAL) Comprehensive metabolic panel (12/17/2021 2:05 AM CDT) P athologist Signature Sodium 132 (L) 136 - 145 12/17/2021 [facility] mmol/L 3:34 AM CDT Potassium 5.0 3.4 - 5.3 12/17/2021 [facility] mmol/L 3:34 AM CDT Comment: Specimen slightly hemolyzed, po tassium may be falsely elevated. Creatinine 0.35 (L) 0.51 - 0.95 12/17/2021 3:34 AM [facility] mg/dL CDT Urea Nitrogen 3.8 (L) 6.0 - 20.0 mg/dL 12/17/2021 3:34 AM [facility] CDT Chloride 96 (L) 98 - 107 mmol/L 12/17/2021 3:34 AM [facility] CDT Carbon Dioxide (CO2) 23 22 - 29 mmol/L 12/17/2021 3:3 4 AM [facility] CDT Anion Gap 13 7 - 15 mmol/L 12/17/2021 3:34 AM [facility] LABO RAT[facility] CDT Glucose 82 70 - 99 mg/dL 12/17/2021 3:34 AM [facility] CDT Calcium 8.6 8.6 - 10.0 mg/dL 12/17/2021 3:34 AM [facility] L ABORATORY CDT Protein Total 6.8 6.4 - 8.3 g/dL 12/17/2021 3:34 AM [facility] CDT Albumin 3.2 (L) 3.5 - 5.2 g/dL 12/17/2021 3:34 AM [facility] LAB OR[facility] CDT Bilirubin Total 0.4 <=1.2 mg/dL 12/17/2021 3:34 AM [facility] CDT Alkaline Phosphatase 163 (H) 35 - 104 U/L 12/17/2021 3:34 AM [facility] CDT AST 138 (H) 10 - 35 U/L 12/17/2021 3:34 AM [facility] LAB[facility]A T[facility] CDT Comment: Specimen is hemolyzed which can falsely elevate AST. Analysis of a non-hemolyzed specimen may result in a l ower value. ALT 74 (H) 10 - 35 U/L 12/17/2021 3:34 AM CDT [facility] GFR Estimate >90 >60 mL/min/1.73m2 12/17/2021 3:34 AM CDT [facility] Comment: Effective May 13, 2021 eGF Rcr in adults is calculated using the 2020 CKD-EPI creatinine equation which includ es age and gender (Antoinette et al., NEJM, DOI: 10.1056/JYKTui7791753) Specimen Anatomical Collection Method / Collection Time Recei gisele Time (Source) Location / Volume Laterality Blood VENOUS LINE / Venipuncture / 12/17/2021 2:05 07/27/202 2 2:10 Unknown Unknown AM CDT AM CDT Mitra Carroll MD LAB - BLOOD ORDERABLES Performing Organization Address City/State/[place] [address] Care Lab [address] Lab (1st floor, no room number) documented in this encounter Visit Diagnoses Diagnosis 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 gadobutrol (GADAVIST) injection 7.5 mL Given 12/17/2021 3:35 AM CDT 5.5 mLs 7.5 mL, Intravenous, ONCE, On Wed12/17/21 at 0255, For 1 dose morphine (PF) injection 4 mg Given 12/17/2021 3:24 AM CDT 4 mg 4 mg, Intravenous, ONCE PRN, moderate to severe pain, Starting on Wed12/17/21 at 0312, For 1 dose, Notify the provider to assess for uncontrolled pain or analgesic side effects. Hold while on IV INSIGHT DIRECTOR or with regular IV opioid dosing. sodium chloride 0.9% infusion at 125 mL/hr, Intravenous, CONTINUOUS, A dminister after the bolus., Starting on Wed12/17/21 at 0330, Until Wed12/17/21 at 0845 documented in this encounter Active and Recently Administered Medications Times are shown in CDT. Scheduled Medication Order 12/15/2021 12/16/2021 12/17/2021 0.9% sodium chloride BOLUS (COMPLETED) 0248 (New Bag - Provider: Laengle. Viridiana Smith RN)0624 (Stopped - Provider: Elma Guevara, BRIGID) Intravenous, 1,000 mL, ONCE, at 1,000 mL /hr, Administer over 1 Hours, On Wed12/17/21 at 0230, For 1 dose acetaminophen (TYLENOL) tablet 975 mg (COMPLETED) 0249 (Given - Provider: Kanchan. Viridiana Smith RN) 975 mg, Oral, ONCE, On Wed12/17/21 at 02 15, For 1 dose, Maximum acetaminophen dose from all sources = 75 mg/kg/day not to exceed 4 grams/day. gadobutrol (GADAVIST) injection 7.5 mL (COMPLETED) 033 (Given - Provider: Marline Lares) 7.5 mL, Intravenous, ONCE, On Wed12/17/21 at 0255, For 1 dose Continuous Medication Order 12/15/2021 12/16/2021 12/17/2021 sodium chloride 0.9% infusion 03 30 (Canceled Entry - Provider: Orders Generic Provider - Comment: Automatically canceled at discontinue of medication order) at 125 mL/hr, Intravenous, CONTINUOUS, A dminister after the bolus., Starting on Wed12/17/21 at 0330, Until Wed12/17/21 at 0845 PRN Medication Order 12/15/2021 12/16/2021 12/17/2021 morphine (PF) injection 4 mg (COMPLETED) 032 (Given - Provider: Karla Ho RN) 4 mg, Intravenous, ONCE PRN, moderate to severe pain, Starting on Wed12/17/21 at 0312, For 1 dose, Notify the provider to assess for uncontrolled pain or analgesic side effects. Hold while on IV INSIGHT DIRECTOR or with regular IV opioid dosing. documented in this encounter Care Teams Manager Cash Relationship Specialty Start Date End Date [facility], [facility] PCP - General 12/17/[address] [place] [address] documented as of this encounter
--- OUTSIDE RECORDS SUMMARY | 2022-04-10 23:04 | XMS_ITS | Encounter Summary ---
:1980 Author Organization [place] Address [address] [place] [address] Care Team Providers Name Role Phone Danette Shepherd MD Primary Care Provider Encounter Details Date Type Department Care Team Description 04/24/2019 Travel Social History Tobacco Use Types Packs/Day [...] on filedocumented in this encounter Care Teams As400 Developer Relationship Specialty Start Date End Date Danette Shepherd MD PCP - General Family Practice 09/13/13 12/16/21 [facility] [address] [place] [address] documented as of this encounter
--- OUTSIDE RECORDS SUMMARY | 2022-04-10 23:04 | XMS_ITS | Encounter Summary ---
:1980 Author Organization [place] Address [facility] [place] [address] Care Team Providers Name Role Phone Danette Shepherd MD Primary Care Provider Reason for Visit Reason Comments Ultrasound growth Encounter Details Date Type Department Care Team Description 01/03/2019 Office Visit [facility] Ksenia Shrestha [facility] [address] [place] [address] Small for gestational Maternal Reba Veliz DO [address] [place], [place] [phone] age fetus affecting Medicine Center management o f mother, [place] third trimester, not [address] applic[address] le or [address] unspecified fetus [place], [place] (Primary Dx) [address] Social History Tobacco Use Types Packs/Day Years Used Date Smoking Tobacco: Every Day Cigarettes 5 Comments: 5-6 cigarettes daily Alcohol Use Standard Drinks/Week Comments No 0 (1 standard drink = 0.6 oz pure alcoho l) Sex Assigned at Date Recorded Not on file documented as of this encounter Progress Notes Reba Veliz DO - 01/03/2019 12:15 PM CDT Please see Imaging tab under Chart Review for details of today's US. Reba Veliz DO documented in this encounter Plan of Treatment Not on filedocumented as of this encounter Visit Diagnoses Diagnosis Small for gestational age fetus affectin g management of mother, third trimester, not applicable or unspecified fetus - Primar y documented in this encounter Care Teams Math Instructor Relationship Specialty Start Date End Date Danette Shepherd MD PCP - General Family Practice 09/13/13 12/16/21 [facility] [address] [place] [address] documented as of this encounter
--- OUTSIDE RECORDS SUMMARY | 2022-04-10 23:04 | XMS_ITS | Encounter Summary ---
:1980 Author Organization [facility] Address [address] [place] [address] Care Team Providers Name Role Phone Danette Shepherd MD Primary Care Provider Reason for Referral Diagnostic Imaging Ultrasound (Routine) - Closed Specialty Diagnoses / Procedures Referred By Contact Refer red To Contact Diagnoses related condition, antepartum Lolita Montoya Procedures [facility] US Comprehensive Single F/U [facility] [address] [place] [address] Referral ID Status Reason Start Date Expiration Date Visits Requ ested Visits Authorized [id number] Closed 12/19/2018 12/19/2019 1 1 Encounter Details Date Type Department Care Team Description 12/19/2018 Transcribe Orders [facility] Porfirio Shrestha, Pregn fahad related Maternal Lolita Gottlieb condition, Medicine Center [facility] antepartum (Primary [facility] access hospital Dx) [address] [facility] [address] [place] [phone] Social History Tobacco Use Types Packs/Day Years Used Date Smoking Tobacco: Every Day Cigarettes 5 Comments: 5-6 cigarettes daily Alcohol Use Standard Drinks/Week Comments No 0 (1 standard drink = 0.6 oz pure alcoho l) Sex Assigned at Date Recorded Not on file documented as of this encounter Plan of Treatment Not on filedocumented as of this encounter Results [facility] US Comprehensive Single F/U (01/03/2019 12:46 PM CDT) [...] JEWELL ESTRELLA Study Date: 12:00pm Pat. NO: [id number] Referring ??: JOSE RAUL MARTINEZ Site: [facility] Phys Assistant: Marce Gustafson RDMS : 1980 Age: 38 [...] 5 lb 3 ?oz EFW by ?Hadlock ([id number]) ANATOMY The following structures appear normal: Head / Neck ? Cranium. Head size. Head shape. Lateral ventricles. Midline falx. Cavum septi pellucidi. Cerebellum. Cisterna magna. Thalami. Face ? Lips. Profile. Nose. Heart / Thorax ?4-chamber view. RVOT view. LVOT view. 9-qybvoz-rgpqcbo view. ? Diaphragm. Abdomen ? Stomach. Kidneys. [...] 6lbs at term. Recommend biophysical profiles in [place] to assess for placental insufficiency (oligo, etc). [...] but not detected Procedure Note Reba Veliz, - 01/03/2019 Comp Follow Up [place]. Name:Reba ESTRELLA Date:2018 12:00pm Pat. NO: [id number] MD:LOLITA Redd [facility]:Marce Gustafson RDMS :1980Age:38 INDICATION Check growth METHOD [...] 5 lb 3 oz EFW by Hadlock ([id number]) ANATOMY The following structures appear normal: Head / Neck Cranium. Head size. Head sha pe. Lateral ventricles. Midline falx. Cavum septi pellucidi. Cerebellum. Cisterna magna. Thalami. Face Lips. Profile. Nose. Heart / Thorax 4-chamber view. RVOT view . LVOT view. 8-djwroo-ywrhqbm view. Diaphragm. Abdomen Stomach. Kidneys. Bladder. Spine [...] 6lbs at term. Recommend biophysical profiles in [place] to assess for placental insufficiency (oligo, etc). [...] rmal. 5) The BPP is reassuring. Lolita Shrestha [facility] US ORDERABLES documented in this encounter Visit Diagnoses Diagnosis related condition, antepartum - Primary related condition, antepartum documented in this encounter Care Teams Gi Asst Relationship Specialty Start Date End Date Danette Shepherd MD PCP - General Family Practice 09/13/13 12/16/[address] [facility] [address] [place] [address] documented as of this encounter
--- OUTSIDE RECORDS SUMMARY | 2022-04-10 23:04 | XMS_ITS | Encounter Summary ---
:1980 Author Organization [place] Address [address] [place] [address] Care Team Providers Name Role Phone Danette Shepherd MD Primary Care Provider Reason for Visit Reason Comments Ultrasound SGA Encounter Details Date Type Department Care Team Description 11/11/2018 PRE VISIT [facility] Maternal Tavia Garza, Ultrasound (SGA) Medicine Center BRIGID [place] [address] [facility] [address] [place] [address] Social History Tobacco Use Types Packs/Day Years [...] on filedocumented in this encounter Care Teams Laborer Electroplating Relationship Specialty Start Date End Date Danette Shepherd MD PCP - General Family Practice 09/13/13 12/16/21 [facility] [address] [place] [address] documented as of this encounter
--- OUTSIDE RECORDS SUMMARY | 2022-04-10 23:04 | XMS_ITS | Encounter Summary ---
:1980 Author Organization [place] Address [address] [place] [address]. [place] [address] Care Team Providers Name Role Phone Danette Shepherd MD Primary Care Provider Reba Veliz DO Unavailable [phone] Jairon Greene MD Unavailable [facility] [place] Primary Care Provider Reason for Referral (Routine) - Closed Specialty Diagnoses / Procedures Referred By Contact Refer red To Contact Diagnoses related condition, antepartum Tatiana Montoya [facility] [address] [place] [address] Referral ID Status Reason Start Date Expiration Date Visits Requ ested Visits Authorized [id number] Closed 12/19/2018 12/19/2019 1 1 Encounter Details Date Type Department Care Team Description 12/19/2018 Transcribe Orders [facility] Porfirio Shrestha, Pregn fahad related Maternal Tatiana Gottlieb condition, Medicine Center [facility] antepartum (Primary [facility] Dx) [address] [facility] [address] [place] [address] [phone] Social History Tobacco Use Types Packs/Day Years [...] S chedule [facility] Referral Routine related 1 Occ urrences starting REFERRAL- condition, antepartum 12/19/2018 until 06/17/2019 documented as of this encounter Visit Diagnoses Diagnosis related condition, antepartum - Primary documented in this encounter Care Teams Air Plant Engineer Relationship Specialty Start Date End Date Danette Shepherd MD PCP - General Family Practice 09/13/13 12/16/21 [facility] [address] [place] [address] [facility] PCP - General 12/17/21 [place] [address] [place] [address] Reba Veliz Assigned OBGYN Provider 03/15/20 07/06/20 DO Silvina [address] [facility] [address] [place] [address] Jairon Greene, Assigned Neuroscience 03/15/20 10/26/20 Provider [address] [facility] [address] [place] [address] documented as of this encounter
--- OUTSIDE RECORDS SUMMARY | 2022-04-10 23:04 | XMS_ITS | Encounter Summary ---
:1980 Author Organization [facility] Address [address] [place] [address]. [place] [address] Care Team Providers Name Role Phone Danette [...] W/O CONTRAST HC DOPPLER ECHO PULSED, [place] [address] HC DOPPLER ECHO PULSED, F/U OR LIMITED HC DOPPLER ECHO COLOR FLOW VELOCITY MAP Referral ID Status Reason Start Date Expiration Date Visits Requ ested Visits Authorized [id number] Closed 11/16/2018 11/16/2019 1 1 Reason for Visit Reason Comments Ultrasound L2-EFW 8 % on outside US Encounter Details Date Type Department Care Team Description 11/16/2018 Office Visit [facility] Tanya Watson, COMPUTER SYSTEMS INFORMATION DIRECTOR [facility] [address] [place] [address] Suspected Maternal Camille Ponce MD [address] [place] [address] anomaly, antepartum, Medicine Center single or un specified Kristine fetus (Primary Dx) [address] [place] [phone] Social History Tobacco Use Types Packs/Day Years Used Date Smoking Tobacco: Every Day Cigarettes 5 Comments: 5-6 cigarettes daily Alcohol Use Standard Drinks/Week Comments No 0 (1 standard drink = 0.6 oz pure alcoho l) Sex Assigned at Date Recorded Not on file documented as of this encounter Progress Notes Camille Ponce MD - 11/16/2018 2:00 PM CDT Please see full imaging report from ViewPoint program under imaging tab. Camille Ponce MD Maternal Medicine documented in this encounter Plan of Treatment Not on filedocumented as of this encounter Results ECHO COMPLETE (12/16/2018 11:34 AM CDT) Anatomical Region Laterality Modality Echocardiography Specimen (Source) Anatomical Collection Method Collection Time Re ceived Time Location / / Volume Laterality 12/16/2018 11:00 AM CDT Narrative 12/16/2018 11:50 AM CDT [id number]^KRIS^CAMILLE^KENDRA ?Study ID: [id number] ?[facility] ?[facility] ?[address] ?[place] [address] ? Echocardiogram __ Name: CRISTINABRADLEYJEWELL Study Date: 12/16/2018 11:00 AM ? Patient Location: [facility] Gender: Female ?Patient Class: Outpatient : 1980 ? Age: 38 yrs Ordering Provider: CAMILLE PONCE Referring Provider: CAMILLE PONCE Performed By: Sidra Gonsalves RDCS Reading Physician: Nathaly Steel MD Reason For Study: Suspected anomal y, antepartum, single or unspecified fetus Data: Number of fetuses: This is a headley gestation. Due date: 01/28/2019. Gestational age: 33+6. Deliver y at: [place]. Specific Indication: echocar diogram performed for fetus [...] the left atriu m. There is laminar mhikj-ke-rqdp shunting across the foramen ovale. Atrioventricular valves: [...] note might be different from the original. [id number]^KRIS^CAMILLE^KENDRA Study ID: [id number] [facility]'[address] [address] Echocardiogram __ Name: JEWELL ESTRELLA Study Date: 12/16/2018 11:00 AM Patient Location: [facility] Gender: Female Patient Class: Outpatient : 1980 Age: 38 yrs Ordering Provider: CAMILLE PONCE Referring Provider: CAMILLE PONCE Performed By: Sidra Gonsalves RDCS Reading Physician: Nathaly Steel MD Reason For Study: Suspected anomal y, antepartum, single or unspecified fetus Data: Number of fetuses: This is a headley gestation. Due date: 01/28/2019. Gestational age: 33+6. Deliver y at: [place]. Specific Indication: echocar diogram performed for fetus [...] the left atriu m. There is laminar rtlga-uf-lshk shunting across the foramen ovale. Atrioventricular valves: [...] anomaly, antepartum, sin gle or unspecified fetus - Primary Suspected anomaly, antepartum, sin gle or unspecified fetus documented in this encounter Care Teams Vp Platforms Relationship Specialty Start Date End Date Danette Shepherd MD PCP - General Family Practice 09/13/13 12/16/21 [facility] [address] [place] [address] documented as of this encounter
--- OUTSIDE RECORDS SUMMARY | 2022-04-10 23:04 | XMS_ITS | Encounter Summary ---
:1980 Author Organization [place] Address [address] [place] [address] Care Team Providers Name Role Phone Danette Shepherd MD Primary Care Provider Reason for Visit Reason Onset Date Comments Erroneous encounter-disregard 11/04/2017 Encounter Details Date Type Department Care Team Description 11/04/2017 Office Visit [facility] Orthopaedic Taye Fuentes [facility] MD Corby ENCOUNTER--DISREGARD [address] (Primary Dx) [address]th [address] [place] [address] [phone] Social History Tobacco Use Types Packs/Day Years Used Date Smoking Tobacco: Every Day Cigarettes 5 Comments: 5-6 cigarettes daily Alcohol Use Standard Drinks/Week Comments No 0 (1 standard drink = 0.6 oz pure alcoho l) Sex Assigned at Date Recorded Not on file documented as of this encounter Progress Notes Alisa Field - 11/04/2017 3:07 PM CDT This encounter was opened in error. Please disregard. documented in this encounter Plan of Treatment Not on filedocumented as of this encounter Visit Diagnoses Diagnosis ERRONEOUS ENCOUNTER--DISREGARD - Primary documented in this encounter Care Teams Test Engine Operator Relationship Specialty Start Date End Date Danette Shepherd MD PCP - General Family Practice 09/13/13 12/16/21 [facility] [address] [place] [address] documented as of this encounter
--- OUTSIDE RECORDS SUMMARY | 2022-04-10 23:04 | XMS_ITS | Encounter Summary ---
:1980 Author Organization [place] Address [address] [place] [address] Care Team Providers Name Role Phone Danette Shepherd MD Primary Care Provider Encounter Details Date Type Department Care Team Description 11/16/2018 Travel Social History Tobacco Use Types Packs/Day [...] on filedocumented in this encounter Care Teams Print Press Operator Relationship Specialty Start Date End Date Danette Shepherd MD PCP - General Family Practice 09/13/13 12/16/21 [facility] [address] [place] [address] documented as of this encounter
--- OUTSIDE RECORDS SUMMARY | 2022-04-10 23:05 | XMS_ITS | Encounter Summary ---
:1980 Author Organization [place] Address [address] [place] [address] Care Team Providers Name Role Phone Pedro Burt MD Primary Care Provider Reason for Visit Reason Onset Date Comments Refill Request 03/18/2010 patient asking for r efill on her ensure- strawberry Encounter Details Date Type Department Care Team Description 03/18/2010 Refill [facility] Pedro Burt MD Refill Request (patient Clinic [address] asking for refill on her [id number] [place] [address] [place] ensure- strawberry ) [place] [address] [phone] Social History Tobacco Use Types Packs/Day Years Used Date Smoking Tobacco: Every Day Cigarettes 5 Comments: 5-6 cigarettes daily Alcohol Use Standard Drinks/Week Comments No 0 (1 standard drink = 0.6 oz pure alcoho l) Sex Assigned at Date Recorded Not on file documented as of this encounter Miscellaneous Notes Telephone Encounter - Mei Pacheco - 03/19/2010 2:03 PM CDT Pharmacy calling- ensure is not covered through [facility] unless pt is on tube feedings, or if ensure is 50% of her daily intake. Pharmacy will d/c script. I did call and left message for pt to inform. Jesús Pacheco R.N. Telephone Encounter - Mei Pacheco - 03/18/2010 12:15 PM CDT Pt asking if she could get refills on her ensure. Last OV: 04/05/2009 Reason for visit: depression, adjustment disorder RTC instructions: 3 weeks Last filled: unknown Unable to refill this PSO, will route to PCP. Also- sent pt a MoSo message to inform her that she is needing to get a appt. Scheduled for an annual pe/pap, fasting labs. Jesús Pacheco RN documented in this encounter Plan of Treatment Not on filedocumented as of this encounter Visit Diagnoses Diagnosis Weight loss - Primary Loss of weight documented in this encounter Care Teams Zookeeper Relationship Specialty Start Date End Date Pedro Burt MD PCP - General 10/19/02 09/12/13 [address] [address] documented as of this encounter
--- OUTSIDE RECORDS SUMMARY | 2022-04-10 23:05 | XMS_ITS | Encounter Summary ---
:1980 Author Organization [place] Address [address] [place] [address] Care Team Providers Name Role Phone Pedro Burt MD Primary Care Provider Encounter Details Date Type Department Care Team Description 07/02/2010 Office Visit-[facility] Orthopaedic Clinic Taye Fuentes [facility] MD Corby [place] [address] [address], [address] [place] [phone] Social History Tobacco Use Types Packs/Day Years Used Date Smoking Tobacco: Every Day Cigarettes 5 Comments: 5-6 cigarettes daily Alcohol Use Standard Drinks/Week Comments No 0 (1 standard drink = 0.6 oz pure alcoho l) Sex Assigned at Date Recorded Not on file documented as of this encounter Progress Notes Taye Fuentes - 07/02/2010 10:00 AM CST Supervisor [employer]: Taye Fuentes Status: Final - Signature Encounter: 02 Jul 2010 Type: U Ortho Visit Department of Orthopaedic Surgery Administration: [address], [address] [place] [phone] or [phone] Appointments [email or web address] Mail Address: [place] [address], [address] [place] [address] Harjinder Key MD General Orthopaedics Winter Wilkinson MD Hand, Wrist, Elbow Kimberly Mondragon MD Sports Medicine - Knee Adult Reconstruction - Knee Elie Middleton MD Shoulder Heath Koo MD Oncology and Adult Reconstruction Amadeo Moran MD Oncology Cortney Liu MD Shoulder and Elbow Glen Acevedo MD Professor Emeritus Ander Echols MD Pediatric Orthopaedics and Scoliosis Prateek TesfayeP.M. Foot and Ankle Raymundo Benz MD Joint Preservation, Resurfacing, and Replacement Young Adult Hip & Knee Norman Bates MD Sports Medicine, Shoulder Winston Borges MD Foot and Ankle Taye Fuentes Jr., Spine Josué Harris MD Hand/Trauma Heath Dallas MD Spine Prateek ChristyPKecia. Podiatry Elie Clifford MD Spine Jairo Goldstein MD Trauma Mario Squires MD Oncology and Adult Reconstruction Naye Piedra MD Hand/Pediatric ORTHOPAEDIC SURGERY CONSULTATION RE: JEWELL ESTRELLA : 1980 DOS: 07/02/2010 CHIEF COMPLAINT: Low back, bilateral SI, buttocks and leg pain. REFERRING PROVIDER: Dr. Sauceda. PRIMARY CARE PROVIDER: Dr. Shepherd. HISTORY OF PRESENT ILLNESS: Jewell is a pleasant 30-year-odl female seen today at the request of Dr. Sauceda for evaluation. 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 Since that time she has had an anterior L5-S1 fusion by Dr. Sauceda as well as disc replacements at L4-5 and L3-4. She has been having pain in her thoracolumbar junction and bilateral SI joints that Dr. Sauceda has worked up with SI joint injections. She currently cannot work secondary to the pain. She is on significant doses of pain medicine and is here for evaluation. She states that the pain in her upper portion of the back is just off the midline. It bothers her when she takes a deep breath or with any pressure in the area. With respect to the pain in her SI joints she seems that she cannot get comfortable. The pain does not radiate down her legs. She does feel that when she sits for a long period of time she has subjective numbness in the area of her vagina, rectum and down her right leg. She feels that the right SI joint is worse than the left. She denies chest pain, shortness of breath, nausea, vomiting, diarrhea or any other constitutional signs or symptoms. REVIEW OF SYSTEMS: 15 point review of systems completed by the patient is negative for items other than those mentioned in the HPI. PAST MEDICAL HISTORY: She has had recent bladder infection once every month for which she is taking Macrobid suppressive basis. PAST SURGICAL HISTORY: 1. ACL. The afore mentioned back surgery performed by Dr. Sauceda. Cervical ablation for dysplastic changes. SOCIAL HISTORY: Patient does not work. She is currently trying to quit smoking using Chantix and only smokes a couple a day. She lives at home with her daughter and her boyfriend. She has not undergonejob retraining. FAMILY MEDICAL HISTORY: Noncontributory but reviewed with the patient. ALLERGIES: No known drug allergies. PHYSICAL EXAMINATION: On exam the patient is a pleasant 30-year-old female awake, alert and orientedin no acute distress. Skin shows no sign of dystrophic changes. Head is normocephalic atraumatic. Extraocular motion is intact. Eyes show no signs of scleritis and her affect is normal. Gait examination shows an antalgic and hesitant gait with generalized analgesia with mobility. With flexion she is only able to flex forward to approximately 25 degrees and she cannot flex backwards. She has a generalized hyperkyphosis through the thoracolumbar junction. Given her subjective complaints of dysesthesias in her genital region patient was examined with a nurse, Naye Mi, present. She has intact to light touch sensation in the area of her perianal region in all dermatomes, in the area of her perivaginal region and her labia. She states that her symptoms are currently only brought on by long periods of sitting. Patient has generalized tenderness to palpation over the thoracolumbar junction in the area of the paraspinous musculature at the costovertebral junction. She does show significant spasm through this area and is point tender to palpation over what is likely the T11 and T12 costovertebral junctions. Inthe area of her lower back she has point tenderness to palpation over the right PSI joint greater than the left. She has no tenderness to palpation over the greater trochanters, ischial tuberosities orspinous processes. On the examining room table she has reproducible back pain with log roll of each leg. Hip examination with internal and external rotation shows no groin pain but does exacerbate her back pain. Hip loadon bilateral joints does exacerbate her back pain. She has tenderness to palpation with lateral compression in the pelvic thrust. She has 5/5 motor strength in muscle groups tested from L2-S1. Sensation intact to light touch of the dermatomes of the lower extremity. 2+ dorsalis pedis pulses and brisk capillary refill. She has intact light touch sensation but she states she is dysesthetic in all dermatomes tested of the right lower extremity. Surgical wound in her abdomen is well healed. IMAGING: CT and MRI were available for review from an outside provider. Significant findings on the CT are facet gapping at L4-5 which we discussed with Jewell that Dr. Sauceda has more experience with thisfacet arthrosis after disc arthroplasty. With respect to her L5-S1 fusion there is a good fusion mass. Implants have not changed in their position. 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 PLAN: 1. Rib syndrome: We discussed with Jewell that for her costovertebral rib syndrome we would like her toundergo manual therapy. This has been shown to be a good treatment for rib syndrome. With respect to the facet gapping we will defer to Dr. Sauceda in this regard. With respect to her SI joint as she has had good relief of her SI joint from injections in the past these may be a significant source for her pain. We would like her to undergo manual therapy for our therapist trained in SI joint therapy. We have given her 3 options and she will proceed with this with[facility]. If the manual therapy is not helpful in eliminating this problem we have suggested that another injection with documented relief may be helpful. We did discuss with her and showed a model of the iFuse by [employer], the technology that we use for SI joint fusion. We spent over 1 hour with Jewell and her mother as well as her [facility] today. Greater than 50% in counseling and coordination of care. Patient was seen in staff with Dr. Fuentes. Patient did complete an Oswestry lumbar form showing 74%. Visual analog pain scale shows pain on 9.5in the back and 9 in the leg and her pain diagram shows pain in the midportion of her lower back extending down the anterior and posterior aspect of the spine. Raymundo Ley MD I have personally examined this patient and have reviewed the clinical presentation and progress note with the resident. I agree with the treatment plan as outlined. The plan was formulated with the resident on the day of the resident dictation. Taye Fuentes M.D. Professor Chief of Spine Service DP:[id number] cc: Mahesh Sauceda MD Ins [facility] [address] [place] [address] PCP [facility] [employer] Case [facility] [id number] [place] [address] Electronically signed by:Taye Fuentes M.D. Jul 17 2010 9:33AM ANCHOR TACK PULLER OR TACK PULLER Taye Fuentes - 07/02/2010 10:00 AM CST Supervisor [employer]: Taye Fuentes Status: Final - Signature Encounter: 02 Jul 2010 Type: U Ortho Letter Department of Orthopaedic Surgery Administration: [address], [address] [place] [address] or [phone] Appointments [email or web address] Mail Address: [address], [address] [place] [address] Harjinder Key MD General Orthopaedics Winter Wilkinson MD Hand, Wrist, Elbow Kimberly Mondragon MD Sports Medicine - Knee Adult Reconstruction - Knee Elie Middleton MD Shoulder Heath Koo MD Oncology and Adult Reconstruction Amadeo Moran MD Oncology Cortney Liu MD Shoulder and Elbow Glen Acevedo MD Professor Gennaitus Ander Echols MD Pediatric Orthopaedics and Scoliosis Ivania Tesfaye.P.MAna Maria Foot and Ankle Raymundo Benz MD Joint Preservation, Resurfacing, and Replacement Young Adult Hip & Knee Norman Bates MD Sports Medicine, Shoulder Winston Borges MD Foot and Ankle Taye Fuentes Jr., MD Spine Josué Harris MD Hand/Trauma Heath Dallas MD Spine Ivania Christy.P.M. Podiatry Elie Clifford MD Spine Jairo Goldstein MD Trauma Mario Squires MD Oncology and Adult Reconstruction Naye Piedra MD Hand/Pediatric July 02, 2010 Ms. Ailyn Patricio Case Management [id number] [address] [facility] [address] RE: Jewell Estrella : 1980 DOS: July 02, 2010 Dear Ailyn: You were present today for my evaluation of Jewell Estrella. In summary, I think there are several things going on. 1. 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 This should respond nicely to manual therapy. 2. I think there is some facet degeneration going on at the L4-5 level that may be a part of what isgoing on. 3. She does appear to have significant SI joint dysfunction, right significantly greater than the left, which has responded to injections in the past. I do want her to see one of my therapists for manual therapy both of the rib syndrome and of the SI joints. I do suspect that per Dr. Sauceda's evaluation I agree that it is highly likely that the SI joints are able to be manipulated back in place but then re-displace. I think that she will go on to need SI joint stabilization. Hopefully, one side will be adequate. However, as we discussed today, sometimes this flares the second side. Typically, this surgery takes me about an hour and a half, in the hospital 1-2 days, then on crutches for 3 weeks. There is a specific therapy regimen of which I believe she and you both received copies about how we would approach her postoperative rehab and that I would expect that there is a potential for flare of the contralateral side while she is on limited weightbearing. Hopefully, we can get her through this. If at 3-6 months afterwards she is still having symptoms on the contralateral side, then we could do the second side at surgery as well. My estimation is that it will take 6-12 months then in order to reach maximal medical improvement from this intervention. I think that there is a 70-80% chance that she may experience a reduction in pain. She will notbe pain free and the paresthesias in her legs and other regions I would not expect to improve. I do think there is a chance that she can get back to some sort of a light duty type of occupation. 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 If you have any further questions, please feel free to contact me. Sincerely, Taye Fuentes M.D. Professor Chief of Spine Service DP:ulysses Electronically signed by:Taye Fuentes M.D. Jul 03 2010 10:45AM ANCHOR TACK PULLER OR TACK PULLER Taye Fuentes - 07/02/2010 10:00 AM CST Supervisor [employer]: Taye Fuentes Status: Final - Signature Encounter: 02 Jul 2010 Type: U Ortho Letter Department of Orthopaedic Surgery Administration: [address], [address] [place] [address] or [phone] Appointments [email or web address] Mail Address: [address], [address] [place] [address] Harjinder Key MD General Orthopaedics Winter Wilkinson MD Hand, Wrist, Elbow Kimberly Mondragon MD Sports Medicine - Knee Adult Reconstruction - Knee Elie Middleton MD Shoulder Heath Koo MD Oncology and Adult Reconstruction Amadeo Moran MD Oncology Cortney Liu MD Shoulder and Elbow Glen Acevedo MD Professor Emeritus Ander Echols MD Pediatric Orthopaedics and Scoliosis Ivania Tesfaye.P.M. Foot and Ankle Raymundo Benz MD Joint Preservation, Resurfacing, and Replacement Young Adult Hip & Knee Norman Bates MD Sports Medicine, Shoulder Winston Borges MD Foot and Ankle Taye Fuentes Jr., MD Spine Josué Harris MD Hand/Trauma Heath Dallas MD Spine Ivania Christy.P.M. Podiatry Elie Clifford MD Spine Jairo Goldstein MD Trauma Mario Squires MD Oncology and Adult Reconstruction Naye Piedra MD Hand/Pediatric July 02, 2010 Mahesh Miranda MD [address] [place] [address] RE: Jewell Estrella : 1980 DOS: July 02, 2010 Dear José Luis: I had the opportunity to see Jewell Estrella in clinic today. I agree that her SI joint certainly seemsto be a portion of what is going on with her. On examination today, she also appears to have a rib syndrome at approximately the right T11 rib. In addition, when I reviewed her CT scan, it appeared that the L4-5 facets are widened to my review. The L3-4 facets around the arthroplasty appear normal andthe L5-S1 appear to have normal height as well. She does have some slight paraspinal tenderness in what could be this region. So, I explained to her I think she has three potential issues going on. My starting point for this is I do want her to see one of my therapists for one or perhaps two visits in order to see if she willrespond to manual therapy. I have no doubt that the people she has seen before are very good, it is just sort of my standard protocol to ensure that they have failed manual therapy by someone who I know their skill set. In addition, I have suggested that the manual therapy will also probably relieve her rib syndrome, as we have had a pretty good track record on response to manual therapy with this todate. Finally, I explained that if it is facet joints that are part of the problem, that we may needto get facet blocks done, and I would like to have her come back to you for those. I do not know that this has to precede any sort of SI joint intervention but I think that there is a reasonable probability that there may be some type of symptoms going on from this region of things as well. I spent a long time discussing with Jewell, her mom and with her [facility] about all these issues. I certainly would be happy to do her SI joint fusion and if you wish to be an observer when that occurs, you are certainly welcome to do so. I currently utilize the O-arm and image-guided navigation which I have found facilitates getting things in the right place and perhaps makes things go a little bit faster as well. If you have any further questions about my thoughts or recommended treatment plan, please feel free to contact me. A detailed copy of the clinic note from today's encounter is enclosed to you as well. Sincerely, Enclosure: Clinic note Taye Fuentes M.D. Professor Chief of Spine Service DP:ulysses Electronically signed by:Taye Fuentes M.D. Jul 03 2010 10:44AM ANCHOR TACK PULLER OR TACK PULLER documented in this encounter Plan of Treatment Not on filedocumented as of this encounter Visit Diagnoses Not on filedocumented in this encounter Care Teams Air Brush Operator Relationship Specialty Start Date End Date Pedro Burt MD PCP - General 10/19/02 09/12/13 [address] [address] documented as of this encounter
--- OUTSIDE RECORDS SUMMARY | 2022-04-10 23:05 | XMS_ITS | Encounter Summary ---
:1980 Author Organization [facility] Address [address] [place] [address] Care Team Providers Name Role Phone Danette Shepherd MD Primary Care Provider Encounter Details Date Type Department Care Team Description 04/17/2017 Virtual Visit [facility] Zbigniew up Mitra Hobson, [address] [place] [address] [place] [address] [place] [address] [phone] Social History Tobacco Use Types Packs/Day Years Used Date Smoking Tobacco: Every Day Cigarettes 5 Comments: 5-6 cigarettes daily Alcohol Use Standard Drinks/Week Comments No 0 (1 standard drink = 0.6 oz pure alcoho l) Sex Assigned at Date Recorded Not on file documented as of this encounter Progress Notes Mitra Hobson PA-C - 04/17/2017 2:05 AM CST Date: Clinician: Mitra Hobson Clinician Patient: jewell parson Patient : 1980 Patient Address: [address] [place] [address] Patient Visit Protocol: STI Patient Summary: jewell is a 37 year old ( : 1980 ) female who initiated a Visit for evaluation of STI exposure. When asked the question Please sign me up to receive news, health information andpromotions. , jewell responded No. Her male partner has been diagnosed and has been treated for Chlamydia. She has been sexually active with this partner within the past 60 days. She denies pain in thepelvic area, vaginal itching, sore throat, frequent urination, burning with urination, vaginal discharge, and abdominal pain She denies and denies . She does not menstruate. The patient does not smoke or use smokeless tobacco. MEDICATIONS: No current medications , ALLERGIES: NKDA Clinician Response: Dear jewell, Based upon the information you provided, you have Chlamydia exposure. I am prescribing Doxycycline 100 mg. Take 1 tablet by mouth two times each day for 7 days I am prescribing Azithromycin 1 gm. Mix packet thoroughly with two ounces (approximately 60 mL) of water. Drink the entire contents immediately; add an additional two ounces of water, mix, and drink to assure complete consumption of dosage. For more information on Chlamydia exposure, please visit the following site www.cdc.gov. Annual chlamydia screening is recommended for all sexually active women younger than 25 years. It is also recommended for older women with risk factors such as new or multiple sex partners, or a sex partner who has a sexually transmitted infection. STIs (sexually transmitted infections)are spread by having sexual contact with someone who is infected. The following recommendations can reduce your risk of becoming infected. Limit the number of your sexual partners Always use latex condoms during vaginal and anal sex Latex condoms used consistently and correctly are highly effective in preventing transmission of HIV and most STIs Notify sex partners immediately if you have an STI Make sure partners are tested and treated at same time to prevent re-infection Practice mutual monogamy (only having sex with your partner) Get tested and ask your sexual partner to get tested before you start having sex Expedited Partner Therapy provides treatment of sex partners of someone who is infected. This treatment can be offered without requiring partners to be tested or seen by health care providers. For more information, see www.health.[facility].id.[email or web address]. Diagnosis: Chlamydia exposure Diagnosis ICD: Z20.2 Additional Clinician Notes: Do not have intercourse until you and your partner(s) complete all of your medications and are tested in clinic to make sure it has been cured. Not completely curing this disease can lead to further problem or possibly infertility in the future. It is essential to tell anyone you have had intercourse with that may be exposed about this possibility of exposure, so they may be treated. If you are having any symptoms you must be seen in clinic for further work up and diagnosis. You must use condoms during intercourse to prevent this disease in the future. Prescription: doxycycline hyclate (Vibramycin) 100mg oral tablet 14 tablets, 7 days supply. Take onetablet by mouth 2 times a day for 7 days. Refills: 0, Refill as needed: no, Allow substitutions: yes Prescription: azithromycin (Zithromax) 1 gm pack 1 packet, 1 days supply. Mix packet thoroughly withtwo ounces (approximately 60 ml) of water. drink the entire contents immediately; add an additional two ounces of water, mix, and drink to assure complete consumption of dosage.. Refills: 0, Refill as needed: no, Allow substitutions: yes Pharmacy: [id number] - [phone] [place] [address] Addendum created: April 17 18:40:2016 created by: Jacqueline Magana body: Ok for 1000 mg azithromycin for one dose - take two 500 mg tabs once Dispense 2 tabs No refill K SPLITTER OPERATOR documented in this encounter Plan of Treatment Not on filedocumented as of this encounter Visit Diagnoses Not on filedocumented in this encounter Care Teams Radiology Nurse Relationship Specialty Start Date End Date Danette Shepherd MD PCP - General Family Practice 09/13/13 12/16/21 [facility] [address] [place] [address] documented as of this encounter
--- OUTSIDE RECORDS SUMMARY | 2022-04-10 23:05 | XMS_ITS | Encounter Summary ---
:1980 Author Organization [facility] Address [address] [place] [address]. [place] [address] Care Team Providers Name Role Phone Danette Shepherd MD Primary Care Provider Encounter Details Date Type Department Care Team Description 12/19/2014 Medical Correspondence [facility] Deng [facility] REFERRAL [facility] Info [facility] Non-Provider HEALTH [facility] Srvcs [address] [place] [phone] Social History Tobacco Use Types Packs/Day [...] on filedocumented in this encounter Care Teams Vp Purchasing Relationship Specialty Start Date End Date Danette Shepherd MD PCP - General Family Practice 09/13/13 12/16/21 [facility] [address] [place] [address] documented as of this encounter
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
--- OUTSIDE RECORDS SUMMARY | 2022-04-10 23:05 | XMS_ITS | Encounter Summary ---
:1980 Author Organization [facility] Address [address] [place] [address] Care Team Providers Name Role Phone Pedro Burt MD Primary Care Provider Reason for Visit Reason Onset Date Comments Refill Request 06/11/2010 benzoyl peroxide, fl onase Encounter Details Date Type Department Care Team Description 06/11/2010 Refill [facility] Pedro Burt MD Refill Request (benzoyl [facility] [address] peroxide, flonase) [id number] [place] [address] [facility] [address] [phone] Social History Tobacco Use Types Packs/Day Years Used Date Smoking Tobacco: Every Day Cigarettes 5 Comments: 5-6 cigarettes daily Alcohol Use Standard Drinks/Week Comments No 0 (1 standard drink = 0.6 oz pure alcoho l) Sex Assigned at Date Recorded Not on file documented as of this encounter Miscellaneous Notes Telephone Encounter - Guillermina Black - 06/11/2010 12:37 PM CST Last office visit: 04/05/09 Reason for visit: depression/tobacco use E-visit for UTI on 07/2009 Medication APPROVED per standing orders LETTER SENT Zonia Black RN N FINISH OPERATOR TIG WELDER documented in this encounter Plan of Treatment Not on filedocumented as of this encounter Visit Diagnoses Diagnosis Dermatitis Contact dermatitis and other eczema, due to unspecified cause Chronic rhinitis documented in this encounter Care Teams Cartridge Loader Relationship Specialty Start Date End Date Pedro Burt MD PCP - General 10/19/02 09/12/13 [address] [facility] [place] [address] documented as of this encounter
--- OUTSIDE RECORDS SUMMARY | 2022-04-10 23:05 | XMS_ITS | Encounter Summary ---
:1980 Author Organization [facility] Address [address] [place] [address] Care Team Providers Name Role Phone Pedro Burt MD Primary Care Provider Reason for Visit Reason Onset Date Comments Formulary Issue 03/07/2010 tazorac Encounter Details Date Type Department Care Team Description 03/07/2010 Telephone [facility] Pedro Burt MD Formulary Issue [address] (tazorac) [address] [place] [phone] [id number] (Wo rk) Social History Tobacco Use Types Packs/Day Years Used Date Smoking Tobacco: Every Day Cigarettes 5 Comments: 5-6 cigarettes daily Alcohol Use Standard Drinks/Week Comments No 0 (1 standard drink = 0.6 oz pure alcoho l) Sex Assigned at Date Recorded Not on file documented as of this encounter Miscellaneous Notes Telephone Encounter - Pedro Burt - 03/07/2010 4:11 PM CDT benzaclin sent Telephone Encounter - Guillermina Black - 03/07/2010 3:52 PM CDT Fax from pharmacy states Tazorac is NOT covered. Can you prescription new med? No alternatives given. Guillermina Black RN documented in this encounter Plan of Treatment Not on filedocumented as of this encounter Visit Diagnoses Diagnosis Dermatitis - Primary Contact dermatitis and other eczema, due to unspecified cause documented in this encounter Care Teams Orthodontic Laboratory Technician Relationship Specialty Start Date End Date Pedro Burt MD PCP - General 10/19/02 09/12/13 [address] [place] [address] documented as of this encounter
--- OUTSIDE RECORDS SUMMARY | 2022-04-10 23:05 | XMS_ITS | Encounter Summary ---
:1980 Author Organization [facility] Address [address] [place] [address] Care Team Providers Name Role Phone Pedro Burt MD Primary Care Provider Encounter Details Date Type Department Care Team Description 07/29/2009 E-Visit [facility] Pedro Burt MD UTI (Urinary Tract Infection) (Primary D x); Clinic [address] [place] UTI [address] [place] [address] [phone] Social History Tobacco Use Types Packs/Day Years Used Date Smoking Tobacco: Every Day Cigarettes 5 Comments: 5-6 cigarettes daily Alcohol Use Standard Drinks/Week Comments No 0 (1 standard drink = 0.6 oz pure alcoho l) Sex Assigned at Date Recorded Not on file documented as of this encounter Miscellaneous Notes Telephone Encounter - Pedro Burt - 07/31/2009 11:01 AM CST Complaint as per pt. After d/w pt regarding risks and benefits as well as possible side effects, drug interactions and adverse reactions, pt accepts prescription for cipro to treat acute UTI, diflucan for yeast vaginitis due to therapy for UTI, and macrobid per orders for prophylaxis x 1 year. [facility] [employer] documented in this encounter Plan of Treatment Not on filedocumented as of this encounter Visit Diagnoses Diagnosis UTI (urinary tract infection) - Primary Urinary tract infection, site not specif ied Chronic UTI Urinary tract infection, site not specif ied documented in this encounter Care Teams Threading Machine Operator Relationship Specialty Start Date End Date Pedro Burt MD PCP - General 10/19/02 09/12/13 [address] [address] documented as of this encounter
--- OUTSIDE RECORDS SUMMARY | 2022-04-10 23:05 | XMS_ITS | Encounter Summary ---
:1980 Author Organization [place] Address [address] [place] [address] Care Team Providers Name Role Phone Pedro Burt MD Primary Care Provider Encounter Details Date Type Department Care Team Description 07/07/2010 Office Visit-[facility] INTERFACE [facility] DEPT Guillermina Sawyer RN Social History Tobacco Use Types Packs/Day Years Used Date Smoking Tobacco: Every Day Cigarettes 5 Comments: 5-6 cigarettes daily Alcohol Use Standard Drinks/Week Comments No 0 (1 standard drink = 0.6 oz pure alcoho l) Sex Assigned at Date Recorded Not on file documented as of this encounter Progress Notes Guillermina Sawyer - 07/07/2010 4:20 PM CST Machine Coremaker: Guillermina Sawyer Status: Final - Signature Encounter: 07 Jul 2010 Type: Chart Note Date: 07 Jul 2010 4:12 PM STORE RECEIVER, Recorded By: Guillermina Sawyer Caller: Arthur Ayala, Physical Therapist Reason: Orders Needed received VM message from PT Arthur Ayala to give update on therapy. states saw pt. twice so far & rib pain is almost gone & only an ache now. stateonly did mobility therapy for SI so far& already much improved & she can now touch her toes & using SI belt. he is requesting new orders to continue PT for stabilization therapy. new orders signed by & faxed to JOHANA & scanned. RTC appt. prn. W.O.V.O.R.B/Guillermina Sawyer RN. Electronically signed by:Guillermina Sawyer RN Jul 07 2010 4:22PM STORE RECEIVER Electronically signed by:Taye Fuentes M.D. Jul 17 2010 9:33AM STORE RECEIVER E RECEIVER documented in this encounter Plan of Treatment Not on filedocumented as of this encounter Visit Diagnoses Not on filedocumented in this encounter Care Teams Sql Database Administrator Relationship Specialty Start Date End Date Pedro Burt MD PCP - General 10/19/02 09/12/13 [address] [id number] documented as of this encounter
--- OUTSIDE RECORDS SUMMARY | 2022-04-10 23:05 | XMS_ITS | Encounter Summary ---
:1980 Author Organization [place] Address [facility] [place] [address] Care Team Providers Name Role Phone Danette Shepherd MD Primary Care Provider Reba Veliz DO Unavailable [phone] Jairon Greene MD Unavailable Encounter Details Date Type Department Care Team Description 08/24/2017 Records - [facility] CONVERSION Scan, Provider Social History Tobacco Use Types Packs/Day Years [...] on filedocumented in this encounter Care Teams Junior Web Developer Relationship Specialty Start Date End Date Danette Shepherd MD PCP - General Family Practice 09/13/13 12/16/21 [facility] [address] [place] [address] Reba Veliz Assigned OBGYN Provider 03/15/20 07/06/20 DO Silvina [address] [place] [address] Jairon Greene, Assigned Neuroscience 03/15/20 10/26/20 Provider [address] [facility] [address] [place], [place] [address] documented as of this encounter
--- OUTSIDE RECORDS SUMMARY | 2022-04-10 23:05 | XMS_ITS | Encounter Summary ---
:1980 Author Organization [place] Address [address] [place] [address]. [place] [address] Care Team Providers Name Role Phone Danette Shepherd MD Primary Care Provider Reba Veliz DO Unavailable Jairon Greene MD Unavailable Encounter Details Date Type Department Care Team Description 09/15/2017 Surgery - [facility] Josue Padilla [facility] MD Ernst [place] OR [facility]5 [place], [place] [address] [facility] [facility] [address] [facility] [phone] [place], [place] [address] (Wo rk) Social History Tobacco Use Types [...] 11:17 AM CDT documented in this encounter Plan of Treatment Not on filedocumented as of this encounter Visit Diagnoses Not on filedocumented in this encounter Care Teams Director Of Marketing And Promotions Relationship Specialty Start Date End Date Danette Shepherd MD PCP - General Family Practice 09/13/13 12/16/21 [facility] [address] [place] [address] Reba Veliz Assigned OBGYN Provider 03/15/20 07/06/20 DO Silvina [address] [place] [address] [address] [place] [address] Jairon Greene, Assigned Neuroscience 03/15/20 10/26/20 Provider 420 [facility] [address] [place] [address] documented as of this encounter
--- OUTSIDE RECORDS SUMMARY | 2022-04-10 23:05 | XMS_ITS | Encounter Summary ---
:1980 Author Organization [place] Address [address] [place] [address] Care Team Providers Name Role Phone Pedro Burt MD Primary Care Provider Reason for Visit Reason Onset Date Comments Refill Request 11/03/2010 tazorac 0.1% cream 6 0gm Refill Request 11/03/2010 fluticasone nasal (1 20INH) 16 GM and fluticasone Refill Request 11/03/2010 Audra Encounter Details Date Type Department Care Team Description 11/03/2010 Refill [facility] Pedro Burt MD Refill Request ([facility] [address] 0.1% cream 60gm); Refill [id number] [facility] Request ([place] [address] nasal (120INH) 16 [place] [id number] fluticasone); Refill [phone] Request ( Audra) Social History Tobacco Use Types Packs/Day Years Used Date Smoking Tobacco: Every Day Cigarettes 5 Comments: 5-6 cigarettes daily Alcohol Use Standard Drinks/Week Comments No 0 (1 standard drink = 0.6 oz pure alcoho l) Sex Assigned at Date Recorded Not on file documented as of this encounter Miscellaneous Notes Telephone Encounter - Yodit Mak RN - 11/04/2010 11:14 AM CDT Pharmacy notified. Thank you, Yodit Mak RN [facility] Telephone Encounter - Pedro Burt MD - 11/03/2010 8:45 PM CDT by policy, they need to be denied Telephone Encounter - Yodit Mak RN - 11/03/2010 1:[address] Burt: What would you like to do with these refills? Left message on answering machine for patient to call back, has not had an office visit since 03/2009. Staff tried to reach patient at last refill request, without a returned call by patient. According to Javy, patient has several scripts from several doctors. Julias said they will notify patient that she needs to contact us as well. Thank you, Yodit Mak RN [facility] Telephone Encounter - Gail Wahl - 11/03/2010 11:50 AM CDT Pending Prescriptions: Disp Refills Tazarotene (TAZORAC) 0.1 % CREA 1 Tube 0 Sig: Externally apply 1 dose topically At Bedtime. fluticasone (FLONASE) 50 MCG/ACT nasal spr1 Packa11 Si-2 sprays by Both Nostrils route daily. Telephone Encounter - Gail Wahl - 11/03/2010 11:41 AM CDT Pending Prescriptions: Disp Refills Tazarotene (TAZORAC) 0.1 % CREA 1 Tube 0 Sig: Externally apply 1 dose topically At Bedtime. Date of last visit:02/2009, no refills for this med documented in this encounter Plan of Treatment Not on filedocumented as of this encounter Visit Diagnoses Diagnosis Acne - Primary Other acne Chronic rhinitis documented in this encounter Care Teams Handkerchief Folder Relationship Specialty Start Date End Date Pedro Burt MD PCP - General 10/19/02 09/12/13 [address] [id number] documented as of this encounter
--- OUTSIDE RECORDS SUMMARY | 2022-04-10 23:05 | XMS_ITS | Encounter Summary ---
:1980 Author Organization [place] Address [address] [place] [address] Care Team Providers Name Role Phone Pedro Burt MD Primary Care Provider Reason for Visit Reason Onset Date Comments MyChart Communication 03/18/2010 lisette Redd Encounter Details Date Type Department Care Team Description 03/18/[address] [facility] Pedro Burt MD MyChart Communication [address] (lisette Redd, ) [address] [place] [phone] Social History Tobacco Use Types Packs/Day Years Used Date Smoking Tobacco: Every Day Cigarettes 5 Comments: 5-6 cigarettes daily Alcohol Use Standard Drinks/Week Comments No 0 (1 standard drink = 0.6 oz pure alcoho l) Sex Assigned at Date Recorded Not on file documented as of this encounter Miscellaneous Notes Telephone Encounter - Anita Watson - 03/18/2010 11:50 AM CDT Anita Watson, Nut Sorter Informed patient. Rx has been sent to pharmacy. Telephone Encounter - Kvng Santacruz - 03/18/2010 10:02 AM CDT Gave new Rx Sakshi Santacruz M.D Telephone Encounter - Mei Pacheco - 03/18/2010 9:03 AM CDT Benzaclin gel is not covered, but pharmacy informed me- clindamycin gel, and benzoyl peroxide separately will most probably be covered. RG- Could you please okay rx's for both the clindamycin gel, and benzoyl peroxide on behalf of CL? Thanks, Jesús Pacheco R.N. Telephone Encounter - Mei Pacheco - 03/18/2010 8:55 AM CDT Added message below from pt to this [employer] message as well. Last OV: 04/05/2009 Reason for visit: depression RTC instructions: none Last filled: benzaclin- 03/07/2010- RF, Lisette D- 03-06-2010 OK x 1 only- pt is due for office visit. Called the pharmacy to check on this- Both meds are not covered Jesús Pacheco RN Comment: I need a renewal on these taylors never had the fexofenadine-pseudoephedrine with my meds or the fexofenadine-pseudoephedrine... not sure why not. Also I am wanting the ensure again, my weight is down I am having another back surgery so i am wanting to get my wieght up and to be healthier, I did start taking the chantix!!?? and now not smoking thank you for refilling it for me :) I appreiate it.?? Jewell Lambert Telephone Encounter - Mei Pacheco - 03/18/2010 8:25 AM CDT Message from [email or web address]: Jewell Lambert would like a refill of the following medications: clindamycin-benzoyl peroxide (BENZACLIN) gel [Pedro Burt MD] [facility] Comment: Jesse monroe meant [facility] didnt have this clindamycin-benzoyl peroxide (BENZACLIN) gel and this in my meds fexofenadine-pseudoephedrine (LISETTE-D 24 HOUR) 180-240 MG per tabletsorry about the mix up with my messages.Thank you and see you in a izaiah Lambert documented in this encounter Plan of Treatment Not on filedocumented as of this encounter Visit Diagnoses Diagnosis Dermatitis - Primary Contact dermatitis and other eczema, due to unspecified cause Chronic rhinitis documented in this encounter Care Teams Reel Man Relationship Specialty Start Date End Date Pedro Burt MD PCP - General 10/19/02 09/12/13 [address] [id number] documented as of this encounter
--- OUTSIDE RECORDS SUMMARY | 2022-04-10 23:05 | XMS_ITS | Encounter Summary ---
:1980 Author Organization [place] Address [address] [place] [address] Care Team Providers Name Role Phone Pedro Burt MD Primary Care Provider Reason for Visit [facility] (Routine) - Closed Specialty Diagnoses / Procedures Referred By Contact Refer red To Contact Diagnoses WC/ Mid back/ Dr. Taye Fuentes @ / cl# [id number] doi: 01-16-07 adj: Sarah Neville @ [phone] [id number] - Left message with Sarah @ [phone] [id number] requesting 6 visits for Mid back starting 07-02-10 cl Taye Fuentes MD M [facility] Sports # [id number] doi: 01-16-07 [facility] [address] & Physical Therapy - [place] [address] [place] [address] [place] [address] [place] [address] Phone: Fax: Referral ID Status Reason Start Date Expiration Date Visits V isits Requested Authorized [facility]/WC/MIDBACK Closed 07/02/2010 09/29/2010 4 Encounter Details Date Type Department Care Team Description 07/04/2010 Therapy Visit M [facility] Sonu Ayala athic lesion Rehabilitation Services B, PT of sacral region, not [facility] elsewhere classified [address] SPECIALISTS (Primary Dx) [address] [facility] [address] [place], [place] [address] Social History Tobacco Use Types Packs/Day Years [...] Name Priority Date/Time Associated Diagnosis Comme nts Z MANUAL THER Routine 07/07/2010 6:34 AM Nonallopathic lesio n of TECH,1+REGIONS,EA 15 MIN COATER sacral region, n ot elsewhere classified ZZC NEUROMUSCULAR Routine 07/07/2010 6:34 AM Nonallopathic les ion of RE-EDUCATION COATER sacral region, not elsewhere classified ZZC THERAPEUTIC Routine 07/07/2010 6:34 AM Nonallopathic lesio n of EXERCISES COATER sacral region, not elsewhere classified documented in this encounter Visit Diagnoses Diagnosis Nonallopathic lesion of sacral region, n ot elsewhere classified - Primary documented in this encounter Care Teams Paraprofessional Interpreter Relationship Specialty Start Date End Date Pedro Burt MD PCP - General 10/19/02 09/12/13 [address] [id number] documented as of this encounter
--- OUTSIDE RECORDS SUMMARY | 2022-04-10 23:05 | XMS_ITS | Encounter Summary ---
:1980 Author Organization [place] Address [address] [place] [address] Care Team Providers Name Role Phone Danette Shepherd MD Primary Care Provider Reason for Visit Reason Comments Consult Low back, bilateral leg pain . Hx of lumbar fusion at [place] with Dr. Komal MAGAÑA 03/01/2009. Saw Dr. Fuentes 07/02/2010. Encounter Details Date Type Department Care Team Description 09/13/2013 Office Visit [facility] Taye Fuentes Sacroiliitis (H) [facility] MD [place] ([facility] Dx[facility] [address] [place] [address], [address] [place] [address] [phone] Social History Tobacco Use Types Packs/Day Years [...] - Inhaled Oxygen Concentration - - Weight 46.3 kg (102 lb) 09/13/2013 11:16 AM CDT Height 165.1 cm (5' 5) 09/13/2013 11:16 AM CDT Body Mass Index 16.97 09/13/2013 11:16 AM CDT documented in this encounter Progress Notes Colby Baltazar MD - 09/13/2013 12:19 PM CDT CHIEF COMPLAINT: Low back pain. REFERRING PHYSICIAN: The patient being seen at the request of Danette Shepherd. HISTORY OF PRESENT ILLNESS: Ms. Lambert is a pleasant 33-year-old female who states she had no backpain prior to a work-related injury 01/14/2007. 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 She was seen by Dr. Miranda and ultimatelyunderwent L5-S1 anterior fusion and L4-5 and 3-4 disk replacements. She states she actually got worse following this rather than having any improvement. Since that time she has continued to have low back pain. She has been unable to work and is on Social Security. She is to the point where she says she cannot go on with a debilitating back pain she is having. She is currently having her pain treated b y her primary care provider with Percocet and Celebrex and morphine. [facility] She is currently taking 60 mg of morphine daily in addition up to 15 mg of oxycodone daily. She has undergone a number of injections following her previous surgery. She states the only relief she has ever had is with injections of the SI joints and that relief only lasted as long as the numbing medication that was included with the right showing more improvement than the left. She states that if her current pain was a 10/10, with her injection, she was able to get down to a 6/10 or a 5/10. PAST MEDICAL HISTORY: None. PAST SURGICAL HISTORY: She had a spine fusion and disk replacement previously noted in 2008 and a previous left ACL reconstruction in 1997. ALLERGIES: No known drug allergies. SOCIAL HISTORY: The patient is currently smoking. She is on Social Security. She lives with her daughter and boyfriend; her boyfriend has recently stopped smoking. REVIEW OF SYSTEMS: She currently has migraines and occasional depression, but the remainder of the head, eyes, ears, nose, throat, GI, skin, , musculoskeletal, neurologic and heme lymphatic and endocrine and psychiatric was negative with the exception of also some weight loss which she states is dueto decreased appetite. PHYSICAL EXAMINATION: Ms. Lambert is a pleasant 33-year-old female. Her BMI is 16.97. Her DAMION is 74and her EQ-5D is 50. She is alert and oriented and uncomfortable. She is accompanied by her sister. Her breathing is regular and nonlabored. Examination of her spine reveals she has discomfort to palpation over her bilateral PSIS with the left being worse than the right. In addition, she has some midline sacral pain, but says this is less so than the PSIS pain. She is able to walk with an antalgic hunched forward gait. She states she has normal sensation throughout the L3 through S1 dermatomes. She has 5/5 strength with hip flexion, knee flexion, extension, plantar flexion, dorsiflexion at the ankle flexion, extension of the toes. She has a positive Amy finger. She has got negative ZACH bilaterally. She has a positive thigh thrust and pelvic compression. IMAGING: CT scan from 2010 were reviewed which shows some disruption of the right SI joint and sclerosis. ASSESSMENT: 1. Low back pain. 2. Sacroiliitis. 3. Work Comp. 4. Tobacco use. PLAN: We had a nice discussion today regarding treatment options. Given that the only relief she hasexperienced is with the right SI joint injection, we feel that this is the gold standard to suggesting that she will have improvement with right SI fusion. We discussed that given her smoking, we wouldnot proceed forward with the surgery until she had stopped and she actually is in the process of trying to stop and looks forward to finishing or quitting smoking. We informed her that we would get a nicotine urine or serum test to confirm that she has stopped smoking prior to proceeding forward with any surgery. We would like her to get a right SI joint injection and repeat a CT scan of the pelvis. W e discussed the risks associated with surgery including problems with anesthesia which include heartproblems, lung problems, kidney problems or even , bleeding, infection, nerve damage, failure to heal, a 70-75% chance of improvement. We discussed the standard postoperative regimen being 2 days in the hospital 3 weeks on crutches and 6-12 weeks before she is back to regular activities. Also given the amount of narcotics she is currently taking, we have recommended seeing a pain specialist prior to her surgery to aid in her pain control through this process. We would like to see her back when she has stopped smoking and to hear if her right SI joint injection provided relief. The patient was seen and examined with Dr. Fuentes who is in agreement with the above stated plan. Dictated by Colby Baltazar MD, Resident I have personally examined this patient and have reviewed the clinical presentation and progress note with the resident. I agree with the treatment plan as outlined. The plan was formulated with the resident on the day of the resident's dictation. documented in this encounter Nursing Notes India Solomon, RACHEL - 09/13/2013 11:15 AM CDT Reason For Visit: Chief Complaint Patient presents with ??? Consult Low back, bilateral leg pain. Hx of lumbar fusion at [place] with Dr. Komal MAGAÑA 03/01/2009. Saw Dr. Fuentes 07/02/2010. Ht 1.651 m (5' 5) Wt 46.267 kg (102 lb) BMI 16.97 kg/m2 VAS Pain Scores: Back Pain Scale 0-10: 9 Leg Pain Scale 0-10: 5 Smoker: Yes Request smoking cessation information: No Pain Assessment Patient Currently in Pain: Yes 0-10 Pain Scale: 7 Primary Pain Location: Back Pain Orientation: Lower Other Pain Locations: bilateral legs Pain Descriptors: Burning, Aching, Pressure, Tingling, Numbness Alleviating Factors: Pain medication (chiropractic adjustment) Aggravating Factors: (weather, stress, housework) Oswestry Disability Index (DAMION ?? Dmitry Wheatley 1980, All rights reserved) Section 1 - Pain Intensity: The pain is fairly severe at the moment. Section 2 - Personal Care (washing, dressing, etc.) : I need some help but manage most of my personal care. Section 3 - Lifting: I can only lift very light weights. Section 4 - Walking: Pain prevents me walking more than 100 yards. Section 5 - Sitting: Pain prevents me from sitting more than 10 minutes. Section 6 - Standing: Pain prevents me from standing for more than 10 minutes. Section 7 - Sleeping: Because of pain I have less than 2 hours sleep. Section 8 - Sex life : My sex life is nearly non existent because of pain. Section 9 - Social Life: Pain has restricted my social life to home. Section 10 - Traveling: Pain restricts me to short necessary trips of under 30 minutes. Sum: 37 Count: 10 Oswestry Score (%): 74 % MOBILITY: (3) I have moderate problems walking SELF CARE: (3) I have moderate problems washing or dressing myself USUAL ACTIVITIES (e.g. work, study, housework, family or leisure activities): (5) I am unable to do my usual activities PAIN / DISCOMFORT: (4) I have severe pain or discomfort ANXIETY / DEPRESSION: (4) I am severely anxious or depressed We would like to know how good or bad your health is TODAY (0-100; 100 means the best health you canimagine; 0 means the worst health you can imagine): 50 documented in this encounter Plan of Treatment Not on filedocumented as of this encounter Visit Diagnoses Diagnosis Sacroiliitis (H) - Primary Sacroiliitis, not elsewhere classified documented in this encounter Care Teams Airveyor Operator Relationship Specialty Start Date End Date Danette Shepherd MD PCP - General Family Practice 09/13/13 12/16/21 [place] [facility] [id number] [place] [address] documented as of this encounter
--- OUTSIDE RECORDS SUMMARY | 2022-04-10 23:05 | XMS_ITS | Encounter Summary ---
:1980 Author Organization [place] Address [address] [place] [address] Care Team Providers Name Role Phone Pedro Burt MD Primary Care Provider Reason for Visit Reason Onset Date Comments Refill Request 03/06/2010 multiple Encounter Details Date Type Department Care Team Description 03/06/2010 MyC Refill [facility] Pedro Burt MD Refill Request [facility] [place] [address] (multiple) [address] [place] [address] (Wo rk) Social History Tobacco Use Types Packs/Day Years Used Date Smoking Tobacco: Every Day Cigarettes 5 Comments: 5-6 cigarettes daily Alcohol Use Standard Drinks/Week Comments No 0 (1 standard drink = 0.6 oz pure alcoho l) Sex Assigned at Date Recorded Not on file documented as of this encounter Miscellaneous Notes Telephone Encounter - Guillermina Black - 03/06/2010 6:35 PM CDT Last office visit: [id number] Reason for visit: E-visit for UTI MARIANA: [id number] Medication APPROVED per standing orders. Zonia Black RN Telephone Encounter - Guillermina Black - 03/06/2010 6:33 PM CDT Message from [employer]: Jewell Lambert would like a refill of the following medications: TAZORAC 0.1 % EX CREA [Pedro Burt MD] FLONASE INHA 50 MCG/DOSE NA [Pedro Burt MD] CHANTIX STARTING MONTH NIRMALA 0.5 MG X 11 & 1 MG X 42 OR TABS [Pedro Burt MD] CHANTIX CONTINUING MONTH NIRMALA 1 MG OR TABS [Pedro Burt MD] Preferred pharmacy: [facility] Comment: Dr. Burt I finally have medical insurance again and would like a renewal on these. I have to come seeyou I will be making an appointment terrance!! I am really ready to stop smoking I have to do it. My allergies are really bugging me I have been taking OTC meds but they are getting spendy to buy. I am wonering if you can fill jason D for me the claritin D is ok but doesnt seem to work as well as the jason D. let me know ok Rosalba, Jewell documented in this encounter Plan of Treatment Not on filedocumented as of this encounter Visit Diagnoses Diagnosis Acne Other acne Chronic rhinitis Tobacco use disorder documented in this encounter Care Teams Special Systems Technician Relationship Specialty Start Date End Date Pedro Burt MD PCP - General 10/19/02 09/12/13 [address] [id number] documented as of this encounter
--- OUTSIDE RECORDS SUMMARY | 2022-04-10 23:05 | XMS_ITS | Encounter Summary ---
:1980 Author Organization [facility] Address [address] [place] [address] Care Team Providers Name Role Phone Pedro Burt MD Primary Care Provider Encounter Details Date Type Department Care Team Description 07/02/2010 Office Visit-[facility] INTERFACE [facility] DEPT Provider, [facility] Nurs e Social History Tobacco Use Types Packs/Day Years Used Date Smoking Tobacco: Every Day Cigarettes 5 Comments: 5-6 cigarettes daily Alcohol Use Standard Drinks/Week Comments No 0 (1 standard drink = 0.6 oz pure alcoho l) Sex Assigned at Date Recorded Not on file documented as of this encounter Progress Notes Provider, [facility] Nurse - 07/02/2010 10:00 AM CST Press Feeder: Naye Palm Status: Final Encounter: 02 Jul 2010 Type: Rooming Note Reason For Visit Low back and susu SI, buttocks and leg pain. Pt. is with her mother Nelly Pino, and her RUST Tone. Do you have any other appointments, tests or procedures within the [facility] system for this same day? 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 Sauceda, [facility] Primary Provider: Rosette Garrett Referring Physician: Dr. Sauceda. Pain Eval Current history of pain associated with this visit is as follows: Location: low back, susu SI areas, butocks and legs Quality: sharp, dull, aching, burning, throbbing Severity: 7 - 8 (Pain scale 1-10, with 10 being the worst) Duration: constant Timing: worse with activity / positions Context: all movement and activity, lifting, walking Modifying factors: lying down helps Associated signs/symptoms: numbness in legs and feet Does this pain wake you up at night? Yes. Personal Hx Behavioral history: Tobacco use Started on Chantix. Home environment: Secondhand tobacco smoke in home. Vital Signs Recorded by Naye Palm on 02 Jul 2010 10:12 AM Height: 65.25 in, Weight: 105 lb, BMI: 17.3 kg/m2. Allergies No Known Drug Allergy. Current Meds Med list offered and patient declined. OxyCONTIN 30 MG Tablet Extended Release 12 Hour;TAKE 1 TABLET TWICE DAILY; RPT Celebrex 200 MG Capsule;TAKE 1 CAPSULE DAILY.; RPT Macrobid 100 MG Capsule;TAKE 1 CAPSULE TWICE DAILY.; RPT Chantix 1 MG Tablet;TAKE 1 TABLET TWICE DAILY.; RPT AAA-MED RECONCILE;per pt.; RPT. Signature Signed By: Naye Palm LP; 07/02/2010 10:20 AM HISTORY INSTRUCTOR. documented in this encounter Plan of Treatment Not on filedocumented as of this encounter Visit Diagnoses Not on filedocumented in this encounter Care Teams Port Purser Relationship Specialty Start Date End Date Pedro Burt MD PCP - General 10/19/02 09/12/13 [address] [id number] documented as of this encounter
--- OUTSIDE RECORDS SUMMARY | 2022-04-10 23:05 | XMS_ITS | Encounter Summary ---
:1980 Author Organization [facility] Address [address] [place] [address] Care Team Providers Name Role Phone Pedro Burt MD Primary Care Provider Reason for Visit Reason Onset Date Comments Formulary Issue 03/20/2010 jason Redd Encounter Details Date Type Department Care Team Description 03/20/2010 Telephone [facility] Pedro Burt MD Formulary Issue [place] [address] Cook (jason D) [address] [place] [id number] [phone] (Wo rk) Social History Tobacco Use Types Packs/Day Years Used Date Smoking Tobacco: Every Day Cigarettes 5 Comments: 5-6 cigarettes daily Alcohol Use Standard Drinks/Week Comments No 0 (1 standard drink = 0.6 oz pure alcoho l) Sex Assigned at Date Recorded Not on file documented as of this encounter Miscellaneous Notes Telephone Encounter - Marce Altamirano - 06/11/2010 3:56 PM CST Encounter closed Marce Altamirano RN AURANT EXPEDITOR Telephone Encounter - Mei Pacheco - 04/14/2010 12:46 PM CST I called the MA # below, and they would not run the claim without the NDC # from the pharmacy. I called back to [facility] and the [facility]# [id number]. AURANT EXPEDITOR Telephone Encounter - Ruthy Echols - 04/10/2010 11:18 AM CST Received fax from [facility] that states Not Found, we are unable to locate this Pt's pharmacy coverage, please check with most recent insurance card Called pharmacy listed- [facility] and they gave the MA # to call. Tried at both 9:00 and 11:15 and both times the provider call center was down. Please try later. # for MA [phone] Pt's ID [id number] AURANT EXPEDITOR Telephone Encounter - Lasehll Verma - 04/04/2010 12:57 PM CST Pt has Care . I will refax the PA form with this info on it. Lashell Verma CMA AURANT EXPEDITOR Telephone Encounter - Mei Pacheco - 03/27/2010 10:49 AM CDT refaxed form to insurance co. Awaiting approval/denial. Jesús Pacheco R.N. Telephone Encounter - Marce Altamirano - 03/25/2010 2:53 PM CDT Routed to [facility] Marce Altamirano RN Telephone Encounter - Eliz Squires - 03/25/2010 11:32 AM CDT Form printed off [facility] website and filled out. Faxed to [phone]. Awaiting approval or denial. Eliz Squires RN Telephone Encounter - Pedro Burt - 03/21/2010 8:10 AM CDT Try PA; has failed loratadine/zyrtec Telephone Encounter - Marce Altamirano - 03/20/2010 5:11 PM CDT Fax received from Jason DIAZ NOT covered, Dr Burt please advise PA or rx change, if PA needed call [phone], ID # [id number], routed to Dr Carmel Altamirano RN documented in this encounter Plan of Treatment Not on filedocumented as of this encounter Visit Diagnoses Diagnosis Chronic rhinitis - Primary documented in this encounter Care Teams Retort Loader Relationship Specialty Start Date End Date Pedro Burt MD PCP - General 10/19/02 09/12/13 [address] [id number] documented as of this encounter
--- OUTSIDE RECORDS SUMMARY | 2022-04-10 23:05 | XMS_ITS | Encounter Summary ---
:1980 Author Organization [facility] Address [facility] [place] [address] Care Team Providers Name Role Phone Danette Shepherd MD Primary Care Provider Encounter Details Date Type Department Care Team Description 08/26/[address] [facility] Zi Padilla Retained foreign [facility] MD Ernst body in soft tissue [facility] [address] [phone] Social History Tobacco Use Types Packs/Day Years [...] Name Priority Date/Time Associated Diagnosis Comme nts XR MANDIBLE 1/3 Routine 08/26/2017 4:32 PM Retained foreign Re sults for this VIEWS CDT body in soft tissue procedur e are in the results section. documented in this encounter Results XR Mandible 1/3 Views (08/26/2017 4:32 PM CDT) Anatomical Region Laterality Modality Head Other Specimen (Source) Anatomical Location Collection Method / Collectio n Time Received Time / Laterality Volume Narrative 08/27/2017 11:51 AM CDT XR MANDIBLE 1 - 3 VWS 08/26/2017 4:32 PM INDICATION: Residual foreign body in sof t tissue COMPARISON: None. FINDINGS: There are couple of dental dwaine lings. No suspicious hyperdense foreign bodies in the soft tissues. Procedure Note Paulo Vail MD - 2020 XR MANDIBLE 1 - 3 VWS 08/26/2017 4:32 PM INDICATION: Residual foreign body in sof t tissue COMPARISON: None. FINDINGS: There are couple of dental dwaine lings. No suspicious hyperdense foreign bodies in the soft tissues. Zi Padilla MD [facility] documented in this encounter Visit Diagnoses Diagnosis Retained foreign body in soft tissue documented in this encounter Care Teams Oil Lease Buyer Relationship Specialty Start Date End Date Danette Shepherd MD PCP - General Family Practice 09/13/13 12/16/21 [facility] [address] [place] [address] documented as of this encounter
--- OUTSIDE RECORDS SUMMARY | 2022-04-10 23:05 | XMS_ITS | Encounter Summary ---
:1980 Author Organization [facility] Address [address] [place] [address] Care Team Providers Name Role Phone Pedro Burt MD Primary Care Provider Reason for Visit Reason Onset Date Comments Formulary Issue 04/01/2010 3 pages faxed from [facility] uniform form for pres. drug prior auth. req and formul darryl exceptions Encounter Details Date Type Department Care Team Description 04/01/[address] [facility] Pedro Burt MD Formulary Issue ([address] [place] [address] Cook pages faxed from [address] uniform form for pres. [place] [id number] and formulary [phone] (Wo rk) exceptions) Social History Tobacco Use Types Packs/Day Years Used Date Smoking Tobacco: Every Day Cigarettes 5 Comments: 5-6 cigarettes daily Alcohol Use Standard Drinks/Week Comments No 0 (1 standard drink = 0.6 oz pure alcoho l) Sex Assigned at Date Recorded Not on file documented as of this encounter Miscellaneous Notes Telephone Encounter - Lashell Verma - 04/04/2010 12:59 PM CST Please see encounter from 03/20/10. I will fax form back with pt's [facility] ID # [id number] and close theencounter as it is redundant. Lashell Verma CMA ORATE TREASURER Telephone Encounter - Silvana Farrell - 04/01/2010 10:09 AM CST 3 pages faxed from [facility] uniform form for pres. drug prior auth. req and formulary exceptions. ClinicalReview Dept. [phone] fax number. Silvana Farrell ORATE TREASURER documented in this encounter Plan of Treatment Not on filedocumented as of this encounter Visit Diagnoses Not on filedocumented in this encounter Care Teams Information Security Risk Analyst Relationship Specialty Start Date End Date Pedro Burt MD PCP - General 10/19/02 09/12/13 [address] [place] [id number] documented as of this encounter
--- OUTSIDE RECORDS SUMMARY | 2022-04-10 23:05 | XMS_ITS | Encounter Summary ---
:1980 Author Organization [facility] Address [address] [place] [address] Care Team Providers Name Role Phone Pedro Burt MD Primary Care Provider Reason for Visit Reason Onset Date Comments Refill Request 07/29/2009 Encounter Details Date Type Department Care Team Description 07/29/2009 MyC Refill [facility] Vickie Burt MD Refill Request [address] [phone] (W ork) [phone] Social History Tobacco Use Types Packs/Day Years Used Date Smoking Tobacco: Every Day Cigarettes 5 Comments: 5-6 cigarettes daily Alcohol Use Standard Drinks/Week Comments No 0 (1 standard drink = 0.6 oz pure alcoho l) Sex Assigned at Date Recorded Not on file documented as of this encounter Miscellaneous Notes Telephone Encounter - Marce Altamirano - 07/30/2009 2:10 PM CST Sent chantix-sent [employer] message Last OV: 03/26/09 Reason for visit: tobacco, anxiety Date last filled: n/a Medication approved per standing orders Marce Altamirano RN UNITY LIAISON OFFICER Telephone Encounter - Guillermina Black - 07/29/2009 4:22 PM COMMUNITY LIAISON OFFICER Message from [employer] Jewell Lambert would like a refill of the following medications: CIPROFLOXACIN TABS 500 MG OR [Caitlyn Thompson,] PYRIDIUM 200 MG OR TABS [Sheri Quevedo PA-C] Other - see comments for explanation Preferred pharmacy: [facility] Comment: Dr. Burt as you can see I have had pretty persistant bladder infections AGAIN. I know I have one again. We had a [facility] here in [place] which was convienent for me but it closed in May. I am really hoping you can fill Cipro for me which works well for me. It is very hard for me to travel MOST days with my back and its slow healing i have been dealing with. Also I have been taking the Chantix again you prescribed to me, wondering if I could get a refill on that toThank Jewell Smiley UNITY LIAISON OFFICER documented in this encounter Plan of Treatment Not on filedocumented as of this encounter Visit Diagnoses Diagnosis Urinary tract infection, site not specif ied Tobacco use disorder documented in this encounter Care Teams Primary Teacher Relationship Specialty Start Date End Date Pedro Burt MD PCP - General 10/19/02 09/12/13 [address] [id number] documented as of this encounter
--- OUTSIDE RECORDS SUMMARY | 2022-04-10 23:05 | XMS_ITS | Encounter Summary ---
:1980 Author Organization [facility] Address [facility] [place] [address] Care Team Providers Name Role Phone Danette Shepherd MD Primary Care Provider Encounter Details Date Type Department Care Team Description 08/26/2017 Hospital Encounter M [facility] Zi Padilla Retained foreign [facility] MD Ernst body in soft tissue [facility] Critical access hospital[facility] [address] [phone] Social History Tobacco [...] Priority Date/Time Associated Diagnosis Comme nts XR ANKLE RIGHT 2 Routine 08/26/2017 4:26 PM Retained foreign R esults for this VIEWS CDT body in soft tissue procedur e are in the results section. documented in this encounter Results XR Ankle Right 2 Views (08/26/2017 4:26 PM CDT) Anatomical Region Laterality Modality Leg, Ankle, Foot Right Other Specimen (Source) Anatomical Location Collection Method / Collectio n Time Received Time / Laterality Volume Narrative 08/26/2017 4:32 PM CDT XR ANKLE RIGHT 2 VWS 08/26/2017 4:26 PM INDICATION: Residual foreign body in sof t tissue COMPARISON: None. FINDINGS: There are 2 tiny, mini-staple like metallic densities in the soft tissues overlying the distal and medial aspect of the ??Achilles tendon. This is just deep to the skin. They measure approximately 2 mm in length. No fracture or effusion. Procedure Note Lesley Huddleston MD - 10/29/2020Format ting of this note might be different from the original. XR ANKLE RIGHT 2 VWS 08/26/2017 4:26 PM INDICATION: Residual foreign body in sof t tissue COMPARISON: None. FINDINGS: There are 2 tiny, mini-staple like metallic densities in the soft tissues overlying the distal and medial aspect of the Achilles tendon. This is just deep to the skin. They measure approximately 2 mm in length. No fracture or effusion. Zi Padilla MD [facility] AM[facility] documented in this encounter Visit Diagnoses Diagnosis Retained foreign body in soft tissue documented in this encounter Care Teams Parker Relationship Specialty Start Date End Date Danette Shepherd MD PCP - General Family Practice 09/13/13 12/16/21 [facility] [address] [place] [address] documented as of this encounter
--- OUTSIDE RECORDS SUMMARY | 2022-04-10 23:05 | XMS_ITS | Encounter Summary ---
:1980 Author Organization [facility] Address [address] [place] [address] Care Team Providers Name Role Phone Pedro Burt MD Primary Care Provider Reason for Visit Reason Comments Depression & smoking cessasion Encounter Details Date Type Department Care Team Description 04/05/2009 Office Visit [facility] Pedro Burt MD Tobacco Use Disorder; Clinic [address] Adjustment Disorder with Anx iety; [address] [place] [address] GENERALIZED ANXIETY DIS; [facility] [phone] [phone] Social History Tobacco Use Types Packs/Day Years Used Date Smoking Tobacco: Every Day Cigarettes 5 Comments: 5-6 cigarettes daily Alcohol Use Standard Drinks/Week Comments No 0 (1 standard drink = 0.6 oz pure alcoho l) Sex Assigned at Date Recorded Not on file documented as of this encounter Last Filed Vital Signs Vital Sign Reading Time Taken Comments Blood Pressure 116/74 04/05/2009 1:35 PM PLANT CONTROL OPERATOR Pulse 102 04/05/2009 1:35 PM PLANT CONTROL OPERATOR Temperature - - Respiratory Rate - - Oxygen Saturation - - Inhaled Oxygen Concentration - - Weight 44.5 kg (98 lb) 04/05/2009 1:35 PM PLANT CONTROL OPERATOR Height 167.6 cm (5' 6) 04/05/2009 1:35 PM PLANT CONTROL OPERATOR Body Mass Index 15.82 04/05/2009 1:35 PM PLANT CONTROL OPERATOR documented in this encounter Progress Notes Lashell Vemra - 04/05/2009 2:56 PM PLANT CONTROL OPERATOR Addended by: LASHELL VERMA on: 04/05/2009 2:56:04 PM Modules accepted: SmartSet T CONTROL OPERATOR Pedro Burt - 04/05/2009 2:10 PM CST Pt here for depression regarding her health issues as wella s desire to quit smoking. She has lost weight more since her surgery. She saw her surgeons yesterday and they feel that she is on course to complete recovery.She claims to be eating but admits decreased appetitie EXAM: GENERAL: thin, gaunt, no acute distress. PSYCH: blunt affect. No violent ideation. No delusions or hallucinations although she claims intermittent waking in the middle of the night fearing for her life. No hx of traumatic stress. A/P: 1- Adjustment DO with anxiety dfeatures. After d/w pt regarding risks and benefits as well as possible side effects, drug interactions and adverse reactions, pt accepts prescription for wellbutrin SR per hs orders. F/U in 3 weeks. 2- Underweight. Pt to use OTC bBoost supplement TID with meals. T CONTROL OPERATOR documented in this encounter Nursing Notes 04/05/2009 1:30 PM CST >> LASHELL VERMA Fri Apr 05, 2009 1:37 PM Patient presents with: Depression - & smoking cessasion Initial BP 116/74 Pulse 102 Wt 98 lb (44.453 kg) LMP IUD Estimated Body mass index is 16.06 kg/(m^2) as calculated from: Height of 5' 5.5 (1.664 m) as of 02/21/09 Weight of 98 lb (44.453 kg) as of this encounter. BP completed using cuff size regular HEALTH MAINTENANCE REVIEWED. Lashell Verma CMA documented in this encounter Plan of Treatment Not on filedocumented as of this encounter Visit Diagnoses Diagnosis Tobacco use disorder Adjustment disorder with anxiety GENERALIZED ANXIETY DIS Generalized anxiety disorder Underweight documented in this encounter Care Teams Fleet Coordinator Relationship Specialty Start Date End Date Pedro Burt MD PCP - General 10/19/02 09/12/13 [address] [id number] documented as of this encounter
--- OUTSIDE RECORDS SUMMARY | 2022-04-10 23:05 | XMS_ITS | Encounter Summary ---
:1980 Author Organization [place] Address [address] [place] [address] Care Team Providers Name Role Phone Pedro Burt MD Primary Care Provider Reason for Visit Reason Comments UTI Encounter Details Date Type Department Care Team Description 06/07/2009 Office Visit [facility] Lucinda Thompson y Tract Infection, Site not Specified; Venecia Millan PA-C Dysuria [address] [place] [id number] [address] [place], [place] [address] Social History Tobacco Use Types Packs/Day Years [...] Pressure - - Pulse - - Temperature 36.8 ??C (98.3 ??F) 06/07/2009 3:27 PM SHRIMPING BOAT CAPTAIN Respiratory Rate - - Oxygen Saturation - - Inhaled Oxygen Concentration - - Weight - - Height - - Body Mass Index - - documented in this encounter Patient Instructions Patient InstructionsLoCaitlyn pablo PA-C - 06/07/2009 3:19 PM SHRIMPING BOAT CAPTAIN Urinary Tract Infection in Women What is a urinary tract infection? A urinary tract infection (UTI) is a bacterial infection in the urinary tract. The urinary tract includes the kidneys, ureters, bladder, and urethra. Any or all of these parts of the urinary tract can become infected. If left untreated, UTI can cause permanent damage to the bladder and kidneys. How does it occur? Urinary tract infection is the result of bacteria that multiply and spread. These bacteria can cause: ?? cystitis (bladder infection) pyelonephritis (kidney infection) urethritis (inflammation of the urethra, the tube that drains urine from the bladder). Normally the urine does not have any bacteria or any other organisms in it. Bacteria that cause UTI often spread from the rectum or vagina to the urethra and then to the bladder or kidneys. Urinary tract infection is more common in women because the urethra is short. This makes it easy for bacteria tomove up to the bladder and kidneys. Sometimes bacteria can also spread from another part of the bodythrough the bloodstream to the urinary tract. An obstruction in the urinary tract, such as a stone, can keep the urine from getting to the bladderand lead to an infection. Urinary tract infection is more likely to occur if you have diabetes or another disorder that affects the immune system. Many women seem to have more infections after sexual intercourse. As you get older, it can be harder to empty the bladder completely. If the urine stays inthe bladder, the few bacteria that get into the bladder can start growing and start an infection. Often the cause of UTI is not known. Urinary tract infection is more likely to occur in women who: ?? are newly sexually active or have a new sexual partner are past menopause are have a history of diabetes, sickle-cell anemia, stroke, kidney stones, or any illness that causes the bladder to be paralyzed or unable to empty completely. What are the symptoms? The symptoms of UTI may include: ?? urinating more often feeling an urgent need to urinate pain or discomfort (burning) when you urinate strong-smelling urine pain in the lower pelvis, stomach, lower back, or side urine that looks cloudy or reddish shaking chills fever sweats nausea and vomiting leaking of urine (incontinence) change in amount of urine, either more or less pain during sexual intercourse. How is it diagnosed? Your health care provider will review your symptoms and examine you. The exam may include a pelvic exam. Your provider will check for tenderness of the bladder or kidney area of your back. A sample of your urine may be tested for bacteria and pus. For repeated infections or symptoms that continue after treatment, your health care provider may suggest: ?? An intravenous pyelogram (IVP). An IVP is a special type of x-ray of the kidneys, ureters, and bladder. An ultrasound scan to look at the urinary tract. A cystoscopy. This is an exam of the inside of the bladder with a small lighted instrument. It is usually performed by a specialist called a urologist. How is it treated? UTIs are treated with an antibiotic. For uncomplicated urinary tract infections you may take a single dose of an antibiotic or you may take an antibiotic for 3 to 10 days. For chronic infections or infections that keep coming back, it may be necessary to take the antibiotics for a longer time. Take all the medicine your health care provider prescribes, even after the symptoms go away. If you stop taking your medicine before the scheduled end of treatment, the infection may come back. Your health care provider can prescribe a medicine called Pyridium to relieve painful urination while the antibiotics are treating the infection. (This medicine turns your urine a dark orange color.) If the infection is not treated, your kidneys may be damaged or the infection may spread to your blood. If the infection does spread to the blood, it can be fatal. If you have a severe kidney infection, you will be given IV antibiotics through your veins and you may have to stay in the hospital for a few days. How long will the effects last? Usually the symptoms of the infection stop in 2 to 3 days. How can I take care of myself? ?? Follow your health care provider's treatment. Drink more fluids, especially water, to help flush the bacteria from your system. If you have a fever: Rest if you have a fever above 100 degrees F (38 degrees C). After your temperature falls below 100 degrees F (38 degrees C), you may be more active. Take aspirin or acetaminophen to control the fever. Keep a daily record of your temperature. A hot water bottle or an electric heating pad on a low setting can help relieve cramps or lower abdominal or back pain. Soaking in a tub for 20 to 30 minutes may help relieve any back or abdominal pain. If your symptoms continue for 2 or more days, or if you develop new symptoms, call your health care provider. How can I help prevent a urinary tract infection? You can help prevent UTIs if you: ?? Drink plenty of water and other noncaffeinated drinks. (Caffeine can cause the body to lose fluids.) Do not delay urinating when you feel the need to urinate. Use good hygiene when you use the toilet. For example, wipe from front to back to keep rectal bacteria from getting into the vagina and urethra. Avoid using irritating cosmetics or chemicals in the area of the vagina and urethra (such as strong soaps, feminine hygiene sprays or douches, or scented napkins or panty liners). Urinate soon after sexual intercourse. Keep your genital area clean. Empty your bladder completely when you urinate. Wear all-cotton or cotton-crotch underwear and pantyhose. Change underwear and pantyhose every day. Copyright ?? 2006 [employer] and/or one of its subsidiaries. All Rights Reserved. MPING BOAT CAPTAIN documented in this encounter Progress Notes Caitlyn Thompson PA-C - 06/07/2009 3:19 PM CST SUBJECTIVE: Jewell Lambert is a 29 year old female who presents today for a possible UTI. Symptoms of dysuria, urgency, frequency, burning and voiding in small amounts have been going on for 1day(s). Hematuria no.sudden onset and worseningand moderate. There is no history of fever, chills, nausea or vomiting. Nohistory of vaginal or penile discharge. This patient does have a history of urinary tract infections. Patient denies long duration, rigors, flank pain, temperature > 101 degrees F. and Vomiting, significant nausea or diarrhea or vaginal discharge, vaginal odor, vaginal itching and dyspareunia Past Medical History Diagnosis Date ??? Generalized Anxiety Disorder 02/2007 ??? Tobacco Use Disorder 1999 ??? Hx: UTI (Urinary Tract Infection) Current outpatient prescriptions Medication Sig ??? PYRIDIUM 200 MG OR TABS 1 TABLET 3 TIMES DAILY AFTER MEALS ??? BUPROPION HCL## 150 MG OR TB12 1 TABLET TWICE DAILY ??? MIRENA 20 MCG/24HR IU IUD None Entered ??? CLARITIN-D 24 HOUR# 10-240 MG OR TB24 1 TABLET DAILY ??? FLONASE INHA 50 MCG/DOSE NA INHALE 2 SPRAYS IN EACH NOSTRIL ONCE DAILY ??? TAZORAC 0.1 % EX CREA aplpy hs History Substance Use Topics ??? Tobacco Use: Yes -- for 5 years 5-6 cigarettes daily ??? Alcohol Use: No ROS: Review of systems negative except as stated above. OBJECTIVE: Temp (Src) 98.3 ??F (36.8 ??C) (Temporal) LMP IUD GENERAL APPEARANCE: healthy, alert and no distress RESP: lungs clear to auscultation - no rales, rhonchi or wheezes CV: regular rates and rhythm, normal S1 S2, no murmur noted ABDOMEN: soft, nontender, no HSM or masses and bowel sounds normal BACK: No CVA tenderness SKIN: no suspicious lesions or rashes Results for orders placed in visit on 06/07/2009 U/A, W/O MICRO, NON AUTO Component Value Range ??? Source CVMS ??? COLOR Yellow ??? APPEARANCE cloudy (*) ? ? GLUCOSE negative > Neg (mg/dL) ? ? BILI (URINE) negative > Neg ??? KETONES negative neg - neg (mg/dL) ??? SPECIFIC GRAVITY 1.020 1.003 - 1.035 ? ? BLOOD (URINE) 3+ (*) > Neg ??? pH 7.0 5.0 - 7.0 ??? PROTEIN (URINE) 1+ (*) neg - neg (mg/dL) ??? UROBILINOGEN 0.2 0.2 - 1.0 (EU/dL) ? ? Nitrites negative > Neg ? ? Leuk Esterase 2+ (*) > Neg ASSESSMENT/PLAN: Encounter Diagnoses Code Name Primary? Qualifier ??? 599.0 Urinary Tract Infection, Site not Specified Plan: U/A, W/O MICRO, NON AUTO, CIPROFLOXACIN TABS 500 MG OR ??? 788.1 Dysuria Plan: U/A, W/O MICRO, NON AUTO Patient was instructed to drink plenty of fluids, urinate frequently and to contact the office promptly should she notice fever greater than 102, increase in discomfort, skin rash, lack of improvement after 2 days of treatment, or the appearance of new symptoms. Prevention and treatment of UTI's discussed. Signs and symptoms of pyelonephritis mentioned. PATIENT ADVISED THAT SHE NEEDS TO FOLLOW UP WITH HER PCP OR WITH UROLOGY DUE TO RECURRENT UTI. Follow up with primary care provider if not improving. The patient indicates understanding of these issues and agrees with the plan. MPING BOAT CAPTAIN documented in this encounter Plan of Treatment Not on filedocumented as of this encounter Procedures Procedure Name Priority Date/Time Associated Diagnosis Comme nts ZZCL U/A, W/O MICRO, Routine 06/07/2009 Urinary Tract Result s for this NON AUTO Infection, Site not procedur e are in the Specified results section. Dysuria documented in this encounter Results (ABNORMAL) Urine Test [[id number]] (06/07/2009) [facility] gist Method Time Signature Source CVMS [facility] Color Urine Yellow [facility] Appearance Urine cloudy (A) [facility] Glucose negative Neg mg/dL [facility] Bilirubin Urine negative Neg [facility] Ketones negative neg - neg [facility] mg/dL Specific [place] 1.020 1.003 - [facility] Urine 1.035 Blood Urine 3+ (A) Neg [facility] pH Arterial 7.0 5.0 - 7.0 [facility] Protein Urine 1+ (A) neg - neg [facility] mg/dL Urobilinogen 0.2 0.2 - 1.0 [facility] Urine EU/dL Nitrite Urine negative Neg [facility] Leukocyte 2+ (A) Neg [facility] Esterase Urine Specimen (Source) Anatomical Location Collection Method / Collectio n Time Received Time / Laterality Volume 06/07/2009 Caitlyn Thompson PA-C LABORATORY Performing Organization Address City/State/ZIP Code Phon e Number [facility] [address] [place] [address] [facility] documented in this encounter Visit Diagnoses Diagnosis Urinary tract infection, site not specif ied Dysuria documented in this encounter Care Teams Sample Builder Relationship Specialty Start Date End Date Pedro Burt MD PCP - General 10/19/02 09/12/13 [address] [id number] documented as of this encounter
--- OUTSIDE RECORDS SUMMARY | 2022-04-10 23:05 | XMS_ITS | Encounter Summary ---
:1980 Author Organization [facility] Address [address] [place] [address] Care Team Providers Name Role Phone Pedro Burt MD Primary Care Provider Reason for Visit Reason Onset Date Comments MyChart Communication 03/06/2009 vicodin Encounter Details Date Type Department Care Team Description 03/06/2009 [facility] MD MyChart Communication [place] [address] Cook (vicodin) [address] [place] [phone] [id number] Social History Tobacco Use Types Packs/Day Years Used Date Smoking Tobacco: Every Day Cigarettes 5 Comments: 5-6 cigarettes daily Alcohol Use Standard Drinks/Week Comments No 0 (1 standard drink = 0.6 oz pure alcoho l) Sex Assigned at Date Recorded Not on file documented as of this encounter Miscellaneous Notes Telephone Encounter - Guillermina Black - 03/07/2009 1:46 PM CDT Lmom to inform pharmacy rx denied. My chart sent to ptAna Maria Black RN Telephone Encounter - Pedro Burt - 03/07/2009 9:31 AM CDT No... She is postop. Her issues should be managed by surgeons. We shouldn't do it. Telephone Encounter - Marce Altamirano - 03/06/2009 4:57 PM CDT See below Last OV: 02/21/09 Reason for visit: preop Date last filled: 02/15/09 Not pso, routed, need to fax, send message to pt when faxed Marce Altamirano RN Telephone Encounter - Marce Altamirano - 03/06/2009 4:56 PM CDT Message from [employer]: Jewell Lambert would like a refill of the following medications: VICODIN ES 7.5-750 MG OR TABS [Pedro Burt MD] Preferred pharmacy: [facility] Comment: documented in this encounter Plan of Treatment Not on filedocumented as of this encounter Visit Diagnoses Diagnosis Thoracic or lumbosacral neuritis or radi culitis, unspecified documented in this encounter Care Teams Health Assessment And Treatment Teacher Relationship Specialty Start Date End Date Pedro Burt MD PCP - General 10/19/02 09/12/13 [address] [id number] documented as of this encounter
--- OUTSIDE RECORDS SUMMARY | 2022-04-10 23:05 | XMS_ITS | Encounter Summary ---
:1980 Author Organization [facility] Address [address] [place] [address] Care Team Providers Name Role Phone Pedro Burt MD Primary Care Provider Reason for Visit [facility] Physical Therapy (Routine) - Closed Specialty Diagnoses / Procedures Referred By Contact Refer red To Contact Diagnoses WC/ Mid back/ Dr. Taye Fuentes @ / cl# [id number] doi: 01-16-07 adj: Sarah Neville @ [phone] [id number] - Left message with Sarah @ [phone] [id number] requesting 6 visits for Mid back starting 07-02-10 cl Taye Fuentes MD [facility] # [id number] doi: 01-16-07 [facility] [address] & Physical Therapy - [place] [address] [place] [address] [place] [address] [place] [address] Phone: Fax: Referral ID Status Reason Start Date Expiration Date Visits V isits Requested Authorized [facility]/WC/MIDBACK Closed 07/02/2010 09/29/2010 4 Encounter Details Date Type Department Care Team Description 07/02/2010 Therapy Visit [facility] Sonu Ayala Nonallop athic lesion of sacral region, not elsewhere classified; Rehabilitation Services B, PT Pain in joint, pelvic region and thigh; [facility] Pain in thoracic spine [address] [facility] [address] [facility] [address] [place] [id number] [phone] Social History Tobacco Use Types Packs/Day Years Used Date Smoking Tobacco: Every Day Cigarettes 5 Comments: 5-6 cigarettes daily Alcohol Use Standard Drinks/Week Comments No 0 (1 standard drink = 0.6 oz pure alcoho l) Sex Assigned at Date Recorded Not on file documented as of this encounter Progress Notes Elidia Mosquera - 07/07/2010 12:48 PM CST Subjective: Pertinent medical history includes: Other (smoking almost done). Medical allergies: no. Other surgeries include: Other (ACL (L) knee). Current medications: Anti-inflammatory and pain medication. Patient is currently not working due to present treatment problem. Barriers include: Stairs. Red flags: headaches. Oswestry Score: 82 % Objective: System Physical Exam General ROS Assessment/Plan: Please refer to the daily flowsheet for treatment today, total treatment time and time spent performing 1:1 timed codes. ROOM LATHE OPERATOR Sonu Ayala - 07/02/2010 3:41 PM CST Subjective: Jewell Lambert is a 30 year old female with a lumbar and sacroiliac condition. Condition occurred with: Lifting and repetition/overuse. Condition occurred: at work and in the community. 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 She reports that she lifted something rather heavy and had instant pain that dropped her to the ground about 2-1/2 years ago. Pt reports that she has had a lot of pain since than. Pt reports that she has had an L5-S1 fusion and L3-4/L4-5 disc replacement surgery in her past. Pt reports that she recently had an SI injection with 100% relief for 4 hours. Pt reports she is also having problems with a rib, with a lot of pain when taking a deep breathe androtating. Pt reports that this problem started about a month ago when she was bending over to play with her daughter. When she stood up, it felt like a stabbing pain.. Patient reports pain: Lower lumbar spine, SI joint right, mid thoracic spine and central thoracic spine. Radiates to: Gluteals right and thigh right. Pain is described as sharp, shooting and aching andis constant Pain Scale: Pt reports SI pain at a 8/10 and rib pain at a 10/10. Associated symptoms: Loss of motion/stiffness and loss of strength. Pain is the same all the time. Symptoms are exacerbatedby twisting, bending, stress, standing, sitting, lifting, walking, carrying and certain positions and relieved by rest, analgesics and NSAID's (lying down). Since onset symptoms are unchanged. Special testing: SI injection. Previous treatment includes physical therapy (Pool therapy, SI therapy). Therewas mild improvement following previous treatment. General health as reported by patient is good. Pertinent medical history includes: Smoking. Medical allergies: no. Surgical history: ACL L knee. Current medications: Anti- inflammatory and pain medication. Patient is currently not working due to present treatment problem. Barriers: stairs. Red flags: Severe headaches. Objective: Standing Alignment: Lumbar deviations alignment: positive lower crossed syndrome. Lumbar/SI Evaluation ROM: Arom wnl lumbar: multisegmental flexion is Dysfunctional and painful with reach to mid thigh with no hinge. Multi segmental extension is Functional and painful at end range. Multisegmental rotation is functional and non painful. Arom wnl thoracic (lumbar): decreased T spine extension secondary to pain at T11. Strength: Unable to perform deep squat due to pain. Bridge is challenging and demonstrates glute weakness susu Lumbar Myotomes: normal Lumbar DTR's: normal Cord Signs: normal Lumbar Dermtomes: normal Lumbar Palpation: Palpation (lumbar): increased tone and trigger point in piriformis susu . Tenderness with palpation of glute med and illiocostalis susu. Functional Tests: Core strength and proprioception lumbar: Positive Elys on R for sacral dysfunction. Positive sacral sheer and thrust test. Positive compression and gapping and gaenslens all on R. Spinal Segmental Conclusions: Positive R T11 rib dysfunction Pt presents with a positive lower crossed syndrome. This syndrome presents as a grouping of weak muscles combined with overactive or tight muscles, that create a predictable posture and movemnt patternin the low back that can lead to injury. This distinct pattern of muscle imbalances is characterizedby tight hip flexors, TFL, QLs, and lumbar paraspinals, paired with weak gluts, adductors, and abdominals. The shortened contracted state of these tight muscles can cause a reflex muscle inhibition of those muscles that are weak, and may be due to chronic prolongued static postures SI joint/Sacrum: Positive R sided SIJ dysfunction General ROS Assessment/Plan: Jewell Lambert is a 30 year old female with a storied history of low back and SIJ pain. Pt reports that she has recently developed a secondary T spine radiculopathy Patient has the following significant findings with corresponding treatment plan. Diagnosis 1: 719.45 / 739.4 / 724.1 Pain - hot/cold therapy, US, electric stimulation, manual therapy, splint/taping/bracing/orthotics, self management and education Decreased ROM/flexibility - manual therapy and therapeutic exercise Decreased strength - therapeutic exercise and therapeutic activities Impaired muscle performance - neuro re-education Decreased function - therapeutic activities Impaired posture - neuro re-education Previous and current functional limitations: (See Goal Flow Sheet for this information) Short term and halfway goals: (See Goal Flow Sheet for this information) Communication ability: Patient appears to be able to clearly communicate and understand verbal and written communication and follow directions correctly. Treatment Explanation - The following has been discussed with the patient: RX ordered/plan of care Anticipated outcomes Possible risks and side effects This patient would benefit from PT intervention to resume normal activities. Rehab potential is good. Frequency: 1-2 X week Duration: for 2-3 months Discharge Plan: Achieve all LTG. Independent in home treatment program. Reach maximal therapeutic benefit. Medicare/Medicaid Certification period: NA This patient does not have Medicare/Medicaid. Please refer to the daily flowsheet for treatment today and total treatment time. ROOM LATHE OPERATOR documented in this encounter Plan of Treatment Not on filedocumented as of this encounter Procedures Procedure Name Priority Date/Time Associated Diagnosis Comme nts [facility] MANUAL THER Routine 07/04/2010 11:23 AM Nonallopathic lesi on of TECH,1+REGIONS,EA 15 MIN TOOL ROOM LATHE OPERATOR sacral region, n ot elsewhere classi fied Pain in joint, pelvic region and thigh Pain in thoracic spine [facility] NEUROMUSCULAR Routine 07/04/2010 11:23 AM Nonallopathic le sharee of RE-EDUCATION TOOL ROOM LATHE OPERATOR sacral region, not elsewhere classi fied Pain in joint, pelvic region and thigh Pain in thoracic spine [facility] THERAPEUTIC Routine 07/04/2010 11:23 AM Nonallopathic lesi on of EXERCISES TOOL ROOM LATHE OPERATOR sacral region, not elsewhere classi fied Pain in joint, pelvic region and thigh Pain in thoracic spine documented in this encounter Visit Diagnoses Diagnosis Nonallopathic lesion of sacral region, n ot elsewhere classified Pain in joint, pelvic region and thigh Pain in thoracic spine documented in this encounter Care Teams Naval Gunfire Spotter Relationship Specialty Start Date End Date Pedro Burt MD PCP - General 10/19/02 09/12/13 [address] [id number] documented as of this encounter
--- OUTSIDE RECORDS SUMMARY | 2022-04-10 23:05 | XMS_ITS | Encounter Summary ---
:1980 Author Organization [facility] Address [address] [place] [address] Care Team Providers Name Role Phone Pedro Burt MD Primary Care Provider Encounter Details Date Type Department Care Team Description 04/10/2010 Orders Only [facility] Pedro Burt MD DIAGNOSIS NOT YET [facility] [address] [place] [address] DEFINED (Primary Dx) [address] [place], [place] [address] [phone] Social History Tobacco Use Types Packs/Day Years [...] Name Priority Date/Time Associated Diagnosis Comme nts SURGICAL PATHOLOGY EXAM Routine 04/10/2010 DIAGNOSIS NOT YET DEFINED documented in this encounter Results Surgical pathology exam (04/10/2010) Narrative This result has an attachment that is no t available. Pedro BAZAN - RADHA Performing Organization Address City/State/ZIP Code Phon e Number [place] documented in this encounter Visit Diagnoses Diagnosis DIAGNOSIS NOT YET DEFINED - Primary documented in this encounter Care Teams Juice Tester Relationship Specialty Start Date End Date Pedro Burt MD PCP - General 10/19/02 09/12/13 [address] [place] [address] documented as of this encounter
--- OUTSIDE RECORDS SUMMARY | 2022-04-10 23:05 | XMS_ITS | Encounter Summary ---
:1980 Author Organization [facility] Address [address] [place] [address] Care Team Providers Name Role Phone Pedro Burt MD Primary Care Provider Reason for Visit Reason Onset Date Comments Refill Request 08/05/2010 chantix 1 mg & nitro furantoin Encounter Details Date Type Department Care Team Description 08/05/2010 Refill [facility] Pedro Burt MD Refill Request (chantix [facility] [place] [address] 1 mg & nitrofurantoin) [address] [place] [address] [phone] Social History Tobacco Use Types Packs/Day Years Used Date Smoking Tobacco: Every Day Cigarettes 5 Comments: 5-6 cigarettes daily Alcohol Use Standard Drinks/Week Comments No 0 (1 standard drink = 0.6 oz pure alcoho l) Sex Assigned at Date Recorded Not on file documented as of this encounter Miscellaneous Notes Telephone Encounter - Mei Pacheco - 08/15/2010 11:04 AM CDT INESSA taylor. This pt needs a visit- I did call the pharmacy to deny the macrobid, and chantix and to inform pt that she needs an office visit. Jesús Pacheco R.N. Telephone Encounter - Mei Pacheco - 08/12/2010 8:08 AM CDT INESSA taylor. Jesús Pacheco R.N. Telephone Encounter - Ruthy Echols - 08/06/2010 11:52 AM CDT Left message on answering machine for patient to call back. Has not been seen here with PCP since 03/2009. Needs appt, and what is she needing Macrobid (abx) for? Ruthy Echols RN Telephone Encounter - Silvana Farrell - 08/05/2010 11:28 AM CDT Last OV: 04/05/2009 Reason for visit: tobacco use Date last filled: 03/06/10 Silvana Farrell documented in this encounter Plan of Treatment Not on filedocumented as of this encounter Visit Diagnoses Diagnosis Tobacco use disorder Chronic UTI Urinary tract infection, site not specif ied documented in this encounter Care Teams Gill Box Tender Relationship Specialty Start Date End Date Pedro Burt MD PCP - General 10/19/02 09/12/13 [address] [id number] documented as of this encounter
--- OUTSIDE RECORDS SUMMARY | 2022-04-10 23:05 | XMS_ITS | Encounter Summary ---
:1980 Author Organization [facility] Address [address] [place] [address] Care Team Providers Name Role Phone Danette Shepherd MD Primary Care Provider Reba Veliz DO Unavailable [phone] Jairon Greene MD Unavailable Encounter Details Date Type Department Care Team Description 09/15/2017 [facility] [place] [address] [place] [phone] [place], [place] [phone] [address] Social History Tobacco Use Types Packs/Day Years Used Date Smoking Tobacco: Every Day Cigarettes 5 Comments: 5-6 cigarettes daily Alcohol Use Standard Drinks/Week Comments No 0 (1 standard drink = 0.6 oz pure alcoho l) Sex Assigned at Date Recorded Not on file documented as of this encounter OR Notes Anesthesia Postprocedure Evaluation - Eduard Roach MD - 09/15/2017 3:31 PM CDT Patient: Jewell Lambert REMOVE FOREIGN BODY RIGHT ANKLE Anesthesia type: general Patient location: Phase II Recovery Last vitals: Vitals: 09/15/17 1520 BP: 100/60 Pulse: 87 Resp: 12 Temp: 37 ??C (98.6 ??F) SpO2: 98% Post vital signs: stable Level of consciousness: awake and responds to simple questions Post-anesthesia pain: pain controlled Post-anesthesia nausea and vomiting: no Pulmonary: unassisted, return to baseline Cardiovascular: stable and blood pressure at baseline Hydration: adequate Anesthetic events: no QCDR Measures: ASA# 11 - Harper-op Cardiac Arrest: ASA11B - Patient did NOT experience unanticipated cardiac arrest ASA# 12 - Harper-op Mortality Rate: ASA12B - Patient did NOT ASA# 13 - PACU Re-Intubation Rate: No reintubation occurred ASA# 10 - Composite Anes Safety: ASA10A - No serious adverse event Additional Notes: Anesthesia Preprocedure Evaluation - Floyd Gomez MD - 09/15/2017 12:09 PM CDT Anesthesia Evaluation Patient summary reviewed No history of anesthetic complications Airway Mallampati: I Neck ROM: full Pulmonary - normal exam (+) a smoker Cardiovascular - normal exam Exercise tolerance: > or = 4 METS Neuro/Psych (+) anxiety/panic attacks, Comments: Psychotic NOS. Endo/Other Comments: UPT negative. GI/Hepatic/Renal - negative ROS Dental - normal exam Anesthesia Plan Planned anesthetic: MAC GA with LMA PRN. Toradol, Tylenol. Decadron, Zofran. ASA 2 Anesthetic plan and risks discussed with: patient Post-op plan: routine recovery documented in this encounter Miscellaneous Notes Anesthesia Care Transfer Note - Ruthy Simon, [employer] - 09/15/2017 2:06 PM CDT Last vitals: Vitals: 09/15/17 1400 BP: 117/64 Pulse: 96 Resp: 10 Temp: 36.6 ??C (97.8 ??F) SpO2: 100% Patient's level of consciousness is drowsy Spontaneous respirations: yes Maintains airway independently: yes Dentition unchanged: yes Oropharynx: oropharynx clear of all foreign objects QCDR Measures: ASA# 20 - Surgical Safety Checklist: WHO surgical safety checklist completed prior to induction PQRS# 430 - Adult PONV Prevention: 4558F - Pt received => 2 anti-emetic agents (different classes) preop & intraop ASA# 8 - Peds PONV Prevention: NA - Not pediatric patient, not GA or 2 or more risk factors NOT present PQRS# 424 - Harper-op Temp Management: 4559F - At least one body temp DOCUMENTED => 35.5C or 95.9F within required timeframe PQRS# 426 - PACU Transfer Protocol:G9655 - Transfer of care checklist used ASA# 14 - Acute Post-op Pain: ASA14B - Patient did NOT experience pain >= 7 out of 10 Transferred to pacu w O2 via mask 8 L/min. VSS documented in this encounter Plan of Treatment Not on filedocumented as of this encounter Visit Diagnoses Not on filedocumented in this encounter Care Teams Kindergarten Tutor Relationship Specialty Start Date End Date Danette Shepherd MD PCP - General Family Practice 09/13/13 12/16/21 [facility] [address] [place] [address] Reba Veliz Assigned OBGYN Provider 03/15/20 07/06/20 DO Silvina [address] [place] [address] [address] [place] [address] Jairon Greene, Assigned Neuroscience 03/15/20 10/26/20 Provider [address] [facility] [address] [place] [address] documented as of this encounter
--- OUTSIDE RECORDS SUMMARY | 2022-04-10 23:05 | XMS_ITS | Encounter Summary ---
:1980 Author Organization [facility] Address [address] [place] [address] Care Team Providers Name Role Phone Pedro Burt MD Primary Care Provider Reason for Visit Reason Onset Date Comments Erroneous encounter-disregard 03/18/2010 this is a duplicate message. Encounter Details Date Type Department Care Team Description 03/18/2010 [facility] Pedro Burt MD Erroneous Clinic [place] [address] [place] [address] encounter-disregard [address] [facility] (this is a d... [place], [place] [phone] (Wo rk) Social History Tobacco Use Types Packs/Day Years Used Date Smoking Tobacco: Every Day Cigarettes 5 Comments: 5-6 cigarettes daily Alcohol Use Standard Drinks/Week Comments No 0 (1 standard drink = 0.6 oz pure alcoho l) Sex Assigned at Date Recorded Not on file documented as of this encounter Miscellaneous Notes Telephone Encounter - Mei Pacheco - 03/18/2010 9:15 AM CDT This is a duplicate message. Added pt's comments, and will close this encounter. Jesús Pacheco R.N. documented in this encounter Plan of Treatment Not on filedocumented as of this encounter Visit Diagnoses Diagnosis Chronic rhinitis Dermatitis Contact dermatitis and other eczema, due to unspecified cause documented in this encounter Care Teams Product Support Technician Relationship Specialty Start Date End Date Pedro Burt MD PCP - General 10/19/02 09/12/13 [address] [facility] ZHENG GOODWIN [id number] documented as of this encounter
--- OUTSIDE RECORDS SUMMARY | 2022-04-10 23:05 | XMS_ITS | Encounter Summary ---
:1980 Author Organization [facility] Address [address] [place] [address] Care Team Providers Name Role Phone Pedro Burt MD Primary Care Provider Reason for Visit Reason Comments UTI Encounter Details Date Type Department Care Team Description 05/12/2009 Office Visit [facility] Sheri Quevedo PA-C Urinary Tract [place] [facility] MEDICAL Infection, Site not [address] [place] [address] CTR Specified ([place] [address]) [address] [place], [place] [address] (Wo rk) Social History Tobacco Use Types Packs/Day Years Used Date Smoking Tobacco: Every Day Cigarettes 5 Comments: 5-6 cigarettes daily Alcohol Use Standard Drinks/Week Comments No 0 (1 standard drink = 0.6 oz pure alcoho l) Sex Assigned at Date Recorded Not on file documented as of this encounter Last Filed Vital Signs Vital Sign Reading Time Taken Comments Blood Pressure 90/64 05/12/2009 6:57 PM DISTRIBUTION CENTER MANAGER Pulse 100 05/12/2009 6:57 PM DISTRIBUTION CENTER MANAGER Temperature 37.1 ??C (98.8 ??F) 05/12/2009 6:57 PM DISTRIBUTION CENTER MANAGER Respiratory Rate 18 05/12/2009 6:57 PM DISTRIBUTION CENTER MANAGER Oxygen Saturation 96% 05/12/2009 6:57 PM DISTRIBUTION CENTER MANAGER Inhaled Oxygen Concentration - - Weight - - Height - - Body Mass Index - - documented in this encounter Progress Notes Sheri Quevedo - 05/12/2009 9:52 PM DISTRIBUTION CENTER MANAGER Quick Note: Discussed with patient. RIBUTION CENTER MANAGER Sheri Quevedo - 05/12/2009 9:48 AM CST SUBJECTIVE: Jewell Lambert is a 29 year old female who presents today for a possible UTI. Symptoms of dysuria, urgency, frequency, hesitancy, suprapubic pain and pressure and voiding in small amounts have been going on for 1day(s). Hematuria no. sudden onset and worseningand severe. There is no history of fever, chills, nausea or vomiting. No history of vaginal or penile discharge. This patient does have a history of urinary tract infections. Patient denies long duration, rigors, flank pain, temperature > 101 degrees F. and Vomiting, significant nausea or diarrhea or vaginal discharge, vaginal odor and vaginal itching Past Medical History Diagnosis Date ??? Generalized Anxiety Disorder 02/2007 ??? Tobacco Use Disorder 1999 Current outpatient prescriptions Medication Sig ??? BUPROPION HCL## 150 MG OR TB12 [...] cigarettes daily ??? Alcohol Use: No ROS: CONSTITUTIONAL:NEGATIVE for fever, chills, change in weight INTEGUMENTARY/SKIN: NEGATIVE for worrisome rashes, moles or lesions EYES: NEGATIVE for vision changes or irritation ENT/MOUTH: NEGATIVE for ear, mouth and throat problems RESP:NEGATIVE for significant cough or SOB CV: NEGATIVE for chest pain, palpitations or peripheral edema GI: NEGATIVE for nausea, abdominal pain, heartburn, or change in bowel habits : normal menstrual cycles, dysuria, frequency, hesitancy, urgency and urinary tract infection NEURO: NEGATIVE for weakness, dizziness or paresthesias OBJECTIVE: BP 90/64 Pulse 100 Temp (Src) 98.8 ??F (37.1 ??C) (Temporal) Resp 18 SpO2 96% LMP IUD GENERAL APPEARANCE: healthy, alert and no distress EYES: Eyes grossly normal to inspection and PERRL HENT: TM's normal bilaterally, nose and mouth without erythema, ulcers or lesions and oral mucous membranes moist, no erythema noted RESP: lungs clear to auscultation - no rales, rhonchi or wheezes CV: regular rates and rhythm, normal S1 S2, no murmur noted ABDOMEN: soft, nontender, no HSM or masses and bowel sounds normal BACK: No CVA tenderness GU_female: mild tender suprapubic w/o masses SKIN: no suspicious lesions or rashes Results for orders placed in visit on 05/12/2009 U/A, W/O MICRO, NON AUTO Component Value Range ??? Source urine ??? COLOR brown ??? APPEARANCE cloudy ? ? GLUCOSE negative > Neg (mg/dL) ? ? BILI (URINE) negative > Neg ??? KETONES negative neg - neg (mg/dL) ??? SPECIFIC GRAVITY 1.030 1.003 - 1.035 ? ? BLOOD (URINE) 3+ > Neg ??? pH 6.0 5.0 - 7.0 ??? PROTEIN (URINE) 4+ neg - neg (mg/dL) ??? UROBILINOGEN 0.2 0.2 - 1.0 (EU/dL) ? ? Nitrites negative > Neg ? ? Leuk Esterase 3+ > Neg ASSESSMENT: Encounter Diagnoses Code Name Primary? Qualifier ??? 599.0 Urinary Tract Infection, Site not Specified Yes Plan: U/A, W/O MICRO, NON AUTO, CIPRO 500 MG OR TABS, PYRIDIUM 200 MG OR TABS PLAN: Drink plenty of fluids. Prevention and treatment of UTI's discussed. Signs and symptoms of pyelonephritis mentioned. Stress TX with CIPRO given frequency UTIs. Stress urology/PCP FU to evaluate frequent UTI. FU with PCP in 2-3 days if not improved or sooner if worsen. Sheri Quevedo PA-C RIBUTION CENTER MANAGER documented in this encounter Plan of Treatment Not on filedocumented as of this encounter Procedures Procedure Name Priority Date/Time Associated Diagnosis Comme joe ZZCL U/A, W/O Routine 05/12/2009 7:04 PM Urinary Tract Results for this MICRO, NON AUTO DISTRIBUTION CENTER MANAGER Infection, Site not proce dure are in Specified the results section. documented in this encounter Results (ABNORMAL) Urine Test [[id number]] (05/12/2009 7:04 PM DISTRIBUTION CENTER MANAGER) [facility] Method Time Signature Source urine [facility] Color Urine brown [facility] Appearance Urine cloudy [facility] Glucose negative Neg mg/dL [facility] Bilirubin Urine negative Neg [facility] Ketones negative neg - neg [facility] mg/dL Specific [place] 1.030 1.003 - [facility] Urine 1.035 Blood Urine 3+ Neg [facility] pH Arterial 6.0 5.0 - 7.0 [facility] Protein Urine 4+ neg - neg [facility] mg/dL Urobilinogen 0.2 0.2 - 1.0 [facility] Urine EU/dL Nitrite Urine negative Neg [facility] Leukocyte 3+ Neg [facility] Esterase Urine Ue Emy [facility] Performing Organization Address City/State/ZIP Code Phon e Number [facility] [facility] [address] [place] [address] [facility] documented in this encounter Visit Diagnoses Diagnosis Urinary tract infection, site not specif ied - Primary documented in this encounter Care Teams Traveling Inventory Associate Relationship Specialty Start Date End Date Pedro Burt MD PCP - General 10/19/02 09/12/13 [address] [id number] documented as of this encounter
--- OUTSIDE RECORDS SUMMARY | 2022-04-10 23:06 | XMS_ITS | Encounter Summary ---
:1980 Author Organization [facility] Address [address] [place] [address] Care Team Providers Name Role Phone Pedro Burt MD Primary Care Provider Reason for Visit Reason Onset Date Comments Refill Request 10/25/2008 Vicodin Encounter Details Date Type Department Care Team Description 10/25/[address] [facility] Pedro Burt MD Refill Request (Vicodin) Clinic [address] [address] [phone] Social History Tobacco Use Types Packs/Day Years Used Date Smoking Tobacco: Every Day Cigarettes 5 Comments: less than 1/2 pack per day Alcohol Use Standard Drinks/Week Comments No 0 (1 standard drink = 0.6 oz pure alcoho l) Sex Assigned at Date Recorded Not on file documented as of this encounter Miscellaneous Notes Telephone Encounter - Eliz Squires - 10/26/2008 1:04 PM CDT JM- Can you please approve as CL is out. [place] on-call but not available. Thank you. Eliz Squires RN Telephone Encounter - Eliz Squires - 10/26/2008 8:11 AM CDT Pt sent additional TASShart message requesting Vicodin refill early. CL primary on vacation RG denied request TN- Can you refill as you are the on-call? See messages below. Eliz Squires RN Telephone Encounter - Kvng Santacruz - 10/25/2008 5:28 PM CDT Havent seen this pt, will forward to primary Sakshi Santacruz M.D Telephone Encounter - Eliz Squires - 10/25/2008 4:52 PM CDT Last OV: 09/05/08 Reason for visit: UTI Date last filled: 10/16/08 #60 Pt calling requesting a refill of Vicodin. States she is going out of town 10/26/08 and will run out while she is gone. Reports having about 15 pills left as of today, but that wouldn't cover her while she is away. Unable to fill PSO BRIGID Betancourt Dr- Can you approve in CL absence? documented in this encounter Plan of Treatment Not on filedocumented as of this encounter Visit Diagnoses Diagnosis Thoracic or lumbosacral neuritis or radi culitis, unspecified - Primary documented in this encounter Care Teams Atomic Fuel Assembler Relationship Specialty Start Date End Date Pedro Burt MD PCP - General 10/19/02 09/12/13 [address] [id number] documented as of this encounter
--- OUTSIDE RECORDS SUMMARY | 2022-04-10 23:06 | XMS_ITS | Encounter Summary ---
:1980 Author Organization [facility] Address [address] [place] [address] Care Team Providers Name Role Phone Pedro Burt MD Primary Care Provider Reason for Visit Reason Onset Date Comments Refill Request 01/22/2009 vicodin Encounter Details Date Type Department Care Team Description 01/21/2009 MyC Refill [facility] Pedro Burt MD Refill Request Clinic [place] [address] Cook (vicodin) [address] [place] [phone] (Wo rk) Social History Tobacco Use Types Packs/Day Years Used Date Smoking Tobacco: Every Day Cigarettes 5 Comments: less than 1/2 pack per day Alcohol Use Standard Drinks/Week Comments No 0 (1 standard drink = 0.6 oz pure alcoho l) Sex Assigned at Date Recorded Not on file documented as of this encounter Miscellaneous Notes Telephone Encounter - Ruthy Echols - 01/22/2009 12:19 PM CDT Date of last OV here at [facility]: 06/25/08 Reason for visit: back pain Date last filled: per epic 01/07/09 #40 Labs pertaining to med: none, 08/30 and 08/29 Pt went to [place] for UTI FYI. Ruthy Echols RN Telephone Encounter - Ruthy Echols - 01/22/2009 12:16 PM CDT Message from [employer]: Jewell Ascencion Lambert would like a refill of the following medications: VICODIN ES 7.5-750 MG OR TABS [Pedro Burt MD] [facility] pharmacy[facility] Comment: documented in this encounter Plan of Treatment Not on filedocumented as of this encounter Visit Diagnoses Diagnosis Thoracic or lumbosacral neuritis or radi culitis, unspecified documented in this encounter Care Teams Beer Maker Relationship Specialty Start Date End Date Pedro Burt MD PCP - General 10/19/02 09/12/13 [address] [id number] documented as of this encounter
--- OUTSIDE RECORDS SUMMARY | 2022-04-10 23:06 | XMS_ITS | Encounter Summary ---
:1980 Author Organization [facility] Address [address] [place] [address] Care Team Providers Name Role Phone Pedro Burt MD Primary Care Provider Reason for Visit Reason Onset Date Comments Refill Request 01/07/2009 Vicodin Encounter Details Date Type Department Care Team Description 01/06/2009 MyC Refill [facility] Pedro Burt MD Refill Request Clinic [place] [address] Cook (Vicodin) [address] [place] [phone] (Wo rk) Social History Tobacco Use Types Packs/Day Years Used Date Smoking Tobacco: Every Day Cigarettes 5 Comments: less than 1/2 pack per day Alcohol Use Standard Drinks/Week Comments No 0 (1 standard drink = 0.6 oz pure alcoho l) Sex Assigned at Date Recorded Not on file documented as of this encounter Miscellaneous Notes Telephone Encounter - Eliz Squires - 01/07/2009 8:24 AM CDT CL- Please see [employer] message below Last OV: 06/25/08 Reason for visit: back pain Date last filled: 12/17/08 #40 Unable to fill PSO Eliz Squires RN Telephone Encounter - Eliz Squires - 01/07/2009 8:07 AM CDT Message from [employer]: Jewell Ascencion Lambert would like a refill of the following medications: VICODIN ES 7.5-750 MG OR TABS [Pedro Burt MD] Pref[facility] pharmacy: [facility] Comment: Hi Dr. LI I hope you are doing good, I started seeing a councelor a couple weeks go I should have done it ALONG time ago. its nice to talk with someone about my pain (which is getting intllerable) I felt alot better about things after the first session. Im just praying my surgery comes soon. Take care probably see you soon keren Corcoran documented in this encounter Plan of Treatment Not on filedocumented as of this encounter Visit Diagnoses Diagnosis Thoracic or lumbosacral neuritis or radi culitis, unspecified documented in this encounter Care Teams Duplicating Machine Mechanic Relationship Specialty Start Date End Date Pedro Burt MD PCP - General 10/19/02 09/12/13 [address] [id number] documented as of this encounter
--- OUTSIDE RECORDS SUMMARY | 2022-04-10 23:06 | XMS_ITS | Encounter Summary ---
:1980 Author Organization [facility] Address [address] [place] [address] Care Team Providers Name Role Phone Pedro Burt MD Primary Care Provider Reason for Visit Reason Onset Date Comments Erroneous encounter-disregard 10/26/2008 Encounter Details Date Type Department Care Team Description 10/25/2008 [facility] Erroneous [facility] [place] [address] [place] [address] encounter-disregard [address] [place] [phone] (Wo rk) Social History Tobacco Use Types Packs/Day Years Used Date Smoking Tobacco: Every Day Cigarettes 5 Comments: less than 1/2 pack per day Alcohol Use Standard Drinks/Week Comments No 0 (1 standard drink = 0.6 oz pure alcoho l) Sex Assigned at Date Recorded Not on file documented as of this encounter Miscellaneous Notes Telephone Encounter - Eliz Squires Ascencion - 10/26/2008 8:08 AM CDT Message from [employer]: Jewell Vegas Fausto would like a refill of the following medications: VICODIN 5-500 MG OR TABS [Pedro Burt MD] Preferred pharmacy: [facility] Comment: Hey Dr. Burt its Jewell!! Hope you are doing good!! Hey I have a question [place] and I have about 15 vicodin left and do not want to run out up there is there, wondering if you could refill my perscription I know its alex early but I do not want to be in pain and be all the way up there. Let me know k or call [phone] Jewell Navarrete documented in this encounter Plan of Treatment Not on filedocumented as of this encounter Visit Diagnoses Diagnosis Thoracic or lumbosacral neuritis or radi culitis, unspecified - Primary documented in this encounter Care Teams Machine Specialist Relationship Specialty Start Date End Date Pedro Burt MD PCP - General 10/19/02 09/12/13 [address] [id number] documented as of this encounter
--- OUTSIDE RECORDS SUMMARY | 2022-04-10 23:06 | XMS_ITS | Encounter Summary ---
:1980 Author Organization [facility] Address [address] [place] [address] Care Team Providers Name Role Phone Pedro Burt MD Primary Care Provider Reason for Visit Reason Onset Date Comments Refill Request 12/17/2008 Vicodin Encounter Details Date Type Department Care Team Description 12/16/2008 MyC Refill [facility] Pedro Burt MD Refill Request Clinic [place] [address] [place] (Vicodin) [address] [place] [phone] (Wo rk) Social History Tobacco Use Types Packs/Day Years Used Date Smoking Tobacco: Every Day Cigarettes 5 Comments: less than 1/2 pack per day Alcohol Use Standard Drinks/Week Comments No 0 (1 standard drink = 0.6 oz pure alcoho l) Sex Assigned at Date Recorded Not on file documented as of this encounter Miscellaneous Notes Telephone Encounter - Eliz Squires - 12/17/2008 9:14 AM CDT Please see [employer] message, she is requesting to go back on Vicodin (a stronger dose than in the past), states the oxycontin is too strong for her. Please advise. Last OV: 06/25/08 Reason for visit: back pain Date last filled: 11/23/08 #60 Unable to fill PSO Eliz Squires RN Telephone Encounter - Eliz Squires - 12/17/2008 9:10 AM CDT Message from [employer]: Jewell [facility] would like a refill of the following medications: VICODIN 5-500 MG OR TABS [Pedro Burt MD] [facility] Comment: Hey Dr. Burt! So Dr. Sauceda started me on Oxicotin about three weeks ago and I am having a really hardtime taking it and taking care of Maya, It is way to strong for me and makes me feel completely out of it. So I wanna go back to the Vicodin but I am wondering if there is a little stronger dose of it I know I have a tolerance to it, so it just barely takes the edge off my pain with the miligrams imon now. I am getting a second opinion tomorrow with Dr. Daley about surgery so workcomp approvesit FINALLY!! Please get back to me JENNIFER because I no longer want to be on the Oxicotin for my pain and need something for my back. Thanks, Jewell Marsh I hear my mom is coming to see you!! documented in this encounter Plan of Treatment Not on filedocumented as of this encounter Visit Diagnoses Diagnosis Thoracic or lumbosacral neuritis or radi culitis, unspecified - Primary documented in this encounter Care Teams Asian Art Curator Relationship Specialty Start Date End Date Pedro Burt MD PCP - General 10/19/02 09/12/13 [address] [place] [id number] documented as of this encounter
--- OUTSIDE RECORDS SUMMARY | 2022-04-10 23:06 | XMS_ITS | Encounter Summary ---
:1980 Author Organization [facility] Address [address] [place] [address] Care Team Providers Name Role Phone Pedro Burt MD Primary Care Provider Reason for Visit Reason Onset Date Comments Refill Request 03/05/2009 vicodin Encounter Details Date Type Department Care Team Description 03/05/2009 Refill [facility] Pedro Burt MD Refill Request (vicodin) Clinic [address] [place] [phone] Social History Tobacco Use Types Packs/Day Years Used Date Smoking Tobacco: Every Day Cigarettes 5 Comments: 5-6 cigarettes daily Alcohol Use Standard Drinks/Week Comments No 0 (1 standard drink = 0.6 oz pure alcoho l) Sex Assigned at Date Recorded Not on file documented as of this encounter Miscellaneous Notes Telephone Encounter - Eliz Squires - 03/05/2009 9:49 AM CDT Last OV: 02/21/09 Reason for visit: preop Date last filled: 02/15/09 Unable to fill PSO Eliz Squires RN documented in this encounter Plan of Treatment Not on filedocumented as of this encounter Visit Diagnoses Diagnosis Thoracic or lumbosacral neuritis or radi culitis, unspecified documented in this encounter Care Teams Realtime Reporter Relationship Specialty Start Date End Date Pedro Burt MD PCP - General 10/19/02 09/12/13 [address] [facility] [place] [id number] documented as of this encounter
--- OUTSIDE RECORDS SUMMARY | 2022-04-10 23:06 | XMS_ITS | Encounter Summary ---
:1980 Author Organization [facility] Address [address] [place] [address] Care Team Providers Name Role Phone Pedro Burt MD Primary Care Provider Encounter Details Date Type Department Care Team Description 02/14/[address] [facility] Vickie Burt MD [address] [phone] Social History Tobacco Use Types Packs/Day Years Used Date Smoking Tobacco: Every Day Cigarettes 5 Comments: less than 1/2 pack per day Alcohol Use Standard Drinks/Week Comments No 0 (1 standard drink = 0.6 oz pure alcoho l) Sex Assigned at Date Recorded Not on file documented as of this encounter Miscellaneous Notes Telephone Encounter - Dwight Perry - 02/16/2007 9:04 AM CDT I sent [employer] message asking her to fax a new FMLA for to brandon to your attention if she did not receive the original. Dwight Perry LPN Telephone Encounter - Shalini Marinelli - 02/14/2007 7:32 PM CDT LMOM for pt to CB to brandon- wondering if she got her FMLA forms- Shalini Marinelli CMA documented in this encounter Plan of Treatment Not on filedocumented as of this encounter Visit Diagnoses Not on filedocumented in this encounter Care Teams Risk Control Representative Relationship Specialty Start Date End Date Pedro Burt MD PCP - General 10/19/02 09/12/13 [address] [place] [id number] documented as of this encounter
--- OUTSIDE RECORDS SUMMARY | 2022-04-10 23:06 | XMS_ITS | Encounter Summary ---
:1980 Author Organization [facility] Address [address] [place] [address] Care Team Providers Name Role Phone Pedro Burt MD Primary Care Provider Reason for Referral - Closed Specialty Diagnoses / Procedures Referred By Contact Refer red To Contact Diagnoses Thoracic or lumbosacral neuritis or radiculitis, unspecified Pedro Burt MD [address] [place] [address] Referral ID Status Reason Start Date Expiration Date Visits Requ ested Visits Authorized [id number] Closed 01/19/2007 05/23/2011 1 1 Reason for Visit Reason Comments Back Pain w/c pt was turning and lifti ng at the same time at work and wretched her back Encounter Details Date Type Department Care Team Description 01/19/2007 Office Visit [facility] Pedro Burt MD LUMBOSACRAL NEURITIS Clinic [address] NOS (Primary Dx) [address] [place] [address] [phone] Social History Tobacco Use Types Packs/Day Years Used Date Smoking Tobacco: Every Day Cigarettes 5 Comments: less than 1/2 pack per day Alcohol Use Standard Drinks/Week Comments No 0 (1 standard drink = 0.6 oz pure alcoho l) Sex Assigned at Date Recorded Not on file documented as of this encounter Last Filed Vital Signs Vital Sign Reading Time Taken Comments Blood Pressure 118/80 01/19/2007 3:30 PM CDT Pulse 98 01/19/2007 3:30 PM CDT Temperature 36.7 ??C (98 ??F) 01/19/2007 3:30 PM CDT Respiratory Rate - - Oxygen Saturation - - Inhaled Oxygen Concentration - - Weight 50.8 kg (112 lb) 01/19/2007 3:30 PM CDT Height 170.2 cm (5' 7) 01/19/2007 3:30 PM CDT Body Mass Index 17.54 01/19/2007 3:30 PM CDT documented in this encounter Progress Notes Pedro Burt - 01/19/2007 4:32 PM CDT Jewell Lambert Employer: [employer] Date of Treatment: 01.19.2007 Date of Accident: 01.14.2007 History: Pt, otherwise healthy, twisted her mid-torso and lifted 30 lb weight at the same time, experiencing sudden and immediate low back pain that has progressed to include pain into left lower leg. Witnessed by work physical testing supervisor. EXAMINATION: Skin: negative Eyes: negative Ears/Nose/Throat: negative Respiratory: negative Cardiovascular: negative Gastrointestinal: negative Genitourinary: negative Musculoskeletal: negative. Pt with definite lower lumbar spinal point tenderness. Neurologic: negative Psychiatric: negative Hematologic/Lymphatic/Immunologic: negative Endocrine: negative Diagnosis: Lumbar spinal pain; paraspinal muscle spasm; equivocal left lower extremity radiculopathy. Work Related: YES The employee is UNABLE to return to work until reassessed by spinal surgeons (Dr. Miguelito Jordan at [facility]). Other restrictions: None FOLLOW-UP Follow up with Dr. Jordan as referred.. MD: Pedro Burt M.D. I authorize the release of medical information to be sent to my employer. Employee Signature: Date: documented in this encounter Nursing Notes 01/19/2007 3:30 PM CDT >> SHALINI MARINELLI 01/19/2007 4:06 pm Patient presents with: Back Pain - w/c pt was turning and lifting at the same time at work and wretched her back Initial BP 118/80 Pulse 98 Temp (Src) 98 (Oral) Ht 5' 7 (1.70m) Wt 112 lbs (50.8kg) Body mass index is 17.54 kg/(m^2).. BP completed using cuff size regular Shalini Marinelli CMA documented in this encounter Plan of Treatment Not on filedocumented as of this encounter Procedures Procedure Name Priority Date/Time Associated Diagnosis Comme [facility] ORTHOPEDIC SERVICE DISPATCHER Routine 06/05/2010 Thoracic or lumbosac ral REFERRAL neuritis or radiculitis, unspecified documented in this encounter Results CONSULT ORTHO SERVICE DISPATCHER (06/05/2010) Narrative This result has an attachment that is no t available. Pedro Burt MD REFERRAL documented in this encounter Visit Diagnoses Diagnosis Thoracic or lumbosacral neuritis or radi culitis, unspecified - Primary documented in this encounter Care Teams Backup Administrative Coordinator Relationship Specialty Start Date End Date Pedro Burt MD PCP - General 10/19/02 09/12/13 [address] [place] [id number] documented as of this encounter
--- OUTSIDE RECORDS SUMMARY | 2022-04-10 23:06 | XMS_ITS | Encounter Summary ---
:1980 Author Organization [facility] Address [address] [place] [address] Care Team Providers Name Role Phone Pedro Burt MD Primary Care Provider Reason for Visit Reason Comments Back Pain x1 year Pt slipped and fell on the ice last night Refill Request vicodin - does not seem to b e working on pain at night Encounter Details Date Type Department Care Team Description 06/25/2008 Office Visit [facility] Pedro Burt MD Thoracic or Lumbosacral Neuritis or Radi culitis, Unspecified; Clinic [address] Generalized Anxiety Disorder [address] [place] [phone] [phone] Social History Tobacco Use Types Packs/Day Years Used Date Smoking Tobacco: Every Day Cigarettes 5 Comments: less than 1/2 pack per day Alcohol Use Standard Drinks/Week Comments No 0 (1 standard drink = 0.6 oz pure alcoho l) Sex Assigned at Date Recorded Not on file documented as of this encounter Last Filed Vital Signs Vital Sign Reading Time Taken Comments Blood Pressure 100/62 06/25/2008 3:00 PM CAMERA REPAIR TECHNICIAN Pulse 62 06/25/2008 3:00 PM CAMERA REPAIR TECHNICIAN Temperature 36.6 ??C (97.9 ??F) 06/25/2008 3:00 PM CAMERA REPAIR TECHNICIAN Respiratory Rate - - Oxygen Saturation - - Inhaled Oxygen Concentration - - Weight 46.7 kg (103 lb) 06/25/2008 3:00 PM CAMERA REPAIR TECHNICIAN Height 165.1 cm (5' 5) 06/25/2008 3:00 PM CAMERA REPAIR TECHNICIAN Body Mass Index 17.14 06/25/2008 3:00 PM CAMERA REPAIR TECHNICIAN documented in this encounter Progress Notes Pedro Burt - 06/25/2008 4:40 PM CST Pt here with ongoing back pain, scheduled to f/u with her sopine surgeon in 2 weeks. She believes she will go to the OR for this issue. Her pain makes it difficutl fo her to sleep. She is intolerant topercocet. She seems quite appropriate. EXAM: No spinal point tenderness. Diffuseback pain. A/P: 1- Chronic back pain. After d/w pt regarding risks and benefits as well as possible side effects, drug interactions and adverse reactions, pt accepts prescription for vicodin and to supplement with neurontin for nighttime use. 2- Adjustment DO. After d/w pt regarding risks and benefits as well as possible side effects, drug interactions and adverse reactions, pt accepts prescription for increased dose of cymbalta (20 to 60mg) per hs orders. RA REPAIR TECHNICIAN documented in this encounter Nursing Notes 06/25/2008 3:00 PM CST >> LASHELL VERMA Mon Jun 25, 2008 3:16 PM Patient presents with: Back Pain - x1 year Pt slipped and fell on the ice last night Refill Request - vicodin - does not seem to be working on pain at night Initial BP 100/62 Pulse 62 Temp (Src) 97.9 ??F (36.6 ??C) (Oral) Ht 5' 5 (1.651 m) Wt 103 lb (46.72 kg) Body mass index is 17.14 kg/(m^2).. BP completed using cuff size regular Lashell Verma CMA documented in this encounter Plan of Treatment Not on filedocumented as of this encounter Visit Diagnoses Diagnosis Thoracic or lumbosacral neuritis or radi culitis, unspecified Generalized anxiety disorder documented in this encounter Care Teams Client Project Coordinator Relationship Specialty Start Date End Date Pedro Burt MD PCP - General 10/19/02 09/12/13 [address] [place] [id number] documented as of this encounter
--- OUTSIDE RECORDS SUMMARY | 2022-04-10 23:06 | XMS_ITS | Encounter Summary ---
:1980 Author Organization [facility] Address [address] [place] [address] Care Team Providers Name Role Phone Pedro Burt MD Primary Care Provider Reason for Visit Reason Onset Date Comments Refill Request 11/23/2008 vicodin Encounter Details Date Type Department Care Team Description 11/23/2008 Refill [facility] [place] [facility] Pedro Burt MD Refill Request (vicodin) Clinic [address] [phone] Social History Tobacco Use Types Packs/Day Years Used Date Smoking Tobacco: Every Day Cigarettes 5 Comments: less than 1/2 pack per day Alcohol Use Standard Drinks/Week Comments No 0 (1 standard drink = 0.6 oz pure alcoho l) Sex Assigned at Date Recorded Not on file documented as of this encounter Miscellaneous Notes Telephone Encounter - Fanta Pineda - 11/23/2008 9:27 AM CDT Date of last office visit : Reason for visit : back pain Date last filled : Not a pso med, narcotic agreement t'd up. Fanta Pineda RN documented in this encounter Plan of Treatment Not on filedocumented as of this encounter Visit Diagnoses Diagnosis Thoracic or lumbosacral neuritis or radi culitis, unspecified documented in this encounter Care Teams Magnesium Mill Operator Relationship Specialty Start Date End Date Pedro Burt MD PCP - General 10/19/02 09/12/13 [address] [place] [id number] documented as of this encounter
--- OUTSIDE RECORDS SUMMARY | 2022-04-10 23:06 | XMS_ITS | Encounter Summary ---
:1980 Author Organization [facility] Address [address] [place] [address] Care Team Providers Name Role Phone Pedro Burt MD Primary Care Provider Reason for Visit Reason Onset Date Comments Formulary Issue 11/27/2008 Ensure, NOT COVERED Encounter Details Date Type Department Care Team Description 11/27/2008 Telephone [facility] Pedro Burt MD Formulary Issue [facility] [address] [place] [address] (Ensure, NOT COVERED) [address] [place] [phone] (Wo rk) Social History Tobacco Use Types Packs/Day Years Used Date Smoking Tobacco: Every Day Cigarettes 5 Comments: less than 1/2 pack per day Alcohol Use Standard Drinks/Week Comments No 0 (1 standard drink = 0.6 oz pure alcoho l) Sex Assigned at Date Recorded Not on file documented as of this encounter Miscellaneous Notes Telephone Encounter - Rachel Tavera - 11/29/2008 11:59 AM CDT Ensure Not covered, PA Denied. Patient does not meet the requirements for coverage on this supplement. Pharmacy notified patient will need to pay swanson if they wish to fill this prescription. Janel Tavera CAR DISTRIBUTOR Telephone Encounter - Rachel Tavera - 11/27/2008 9:58 AM CDT Pharmacy Benefit Information: Provider: BRITTANY Fax#- ID#- [id number] Medication/SIG: Ensure [facility]- [facility] Insurance Requires Prior Authorization - Insurance states that [place] will not cover OTC nutritional supplements and requires atleast a 50% of a patients daily calorie intake provided by the supplement. PA Forms Filled Out and Faxed to Insurance Company. Awaiting Approval and/or Denial Note. Janel Tavera CMA documented in this encounter Plan of Treatment Not on filedocumented as of this encounter Visit Diagnoses Not on filedocumented in this encounter Care Teams Managing Editor Relationship Specialty Start Date End Date Pedro Burt MD PCP - General 10/19/02 09/12/13 [address] [place] [place] [id number] documented as of this encounter
--- OUTSIDE RECORDS SUMMARY | 2022-04-10 23:06 | XMS_ITS | Encounter Summary ---
:1980 Author Organization [facility] Address [address] [place] [address] Care Team Providers Name Role Phone Pedro Burt MD Primary Care Provider Reason for Visit Reason Onset Date Comments Medication Request 03/13/2008 Requesting Tazorac Derm Problem 03/13/2008 Acne and folliculiti s Encounter Details Date Type Department Care Team Description 03/13/2008 [facility] Pedro Burt MD Medication Request Clinic [address] (Requesting Tazorac ); [id number] [place] [address] [facility] (Acne and [place], [place] folliculi tis) [phone] [phone] (Wo rk) Social History Tobacco Use Types Packs/Day Years Used Date Smoking Tobacco: Every Day Cigarettes 5 Comments: less than 1/2 pack per day Alcohol Use Standard Drinks/Week Comments No 0 (1 standard drink = 0.6 oz pure alcoho l) Sex Assigned at Date Recorded Not on file documented as of this encounter Miscellaneous Notes Telephone Encounter - Pedro Burt - 03/14/2008 11:04 AM CDT Tazorac scripted; keep using minocin Telephone Encounter - Jeanine Freedman - 03/13/2008 3:42 PM CDT Patient saw you on 02/02/08 for acne and folliculitis-talked about Tazorac. Minocycline not working as well as she thought for acne. Wondering if can try the Tazorac as discussed? Please Rx if you agree and she would check with her pharmacy [facility] afternoon Only need to call if problems [phone] Jeanine Freedman RN documented in this encounter Plan of Treatment Not on filedocumented as of this encounter Visit Diagnoses Diagnosis Acne - Primary Other acne documented in this encounter Care Teams Partition Assembly Machine Operator Relationship Specialty Start Date End Date Pedro Burt MD PCP - General 10/19/02 09/12/13 [address] [place] [id number] documented as of this encounter
--- OUTSIDE RECORDS SUMMARY | 2022-04-10 23:06 | XMS_ITS | Encounter Summary ---
:1980 Author Organization [facility] Address [address] [place] [address] Care Team Providers Name Role Phone Pedro Burt MD Primary Care Provider Encounter Details Date Type Department Care Team Description 09/15/2004 Emergency room Yuniel Childress MD EMERGENCY PHYSIC [facility] [address] [facility] [address] [place] [address] (Wo rk) Social History Tobacco Use Types Packs/Day Years Used Date Smoking Tobacco: Every Day Cigarettes 5 Comments: less than 1/2 pack per day Alcohol Use Standard Drinks/Week Comments No 0 (1 standard drink = 0.6 oz pure alcoho l) Sex Assigned at Date Recorded Not on file documented as of this encounter Progress Notes Yuniel Childress - 09/15/2004 11:59 PM CDT : 84 CHIEF COMPLAINT: A little bit of left flank pain, some chills tonight. She developed some urinary frequency and urgency three days ago and started herself on Septra DS. She came in tonight because of the little bit of the left flank pain and concerned that she might be mistreating herself. She has had some chilling she said, low grade fever, kind of a dull ache in the right flank. She has had one kidney infection in the past she says and numerous urinary tract infections. She takes Concerta 27 mg daily. PAST MEDICAL HISTORY: History of frequent UTIs, ADD, ACL repair on her knee. SOCIAL HISTORY: Smoker and occasionally uses alcohol. FAMILY HISTORY: Not applicable. REVIEW OF SYSTEMS: Generally she has been feeling fairly well except for the urinary frequency and urgency and a little bit of left flank pain. Skin negative. Head negative. Eyes negative. Ears, nose, throat negative. Cardiorespiratory negative. - see history of present illness and past medical history,all other systems negative. PHYSICAL EXAM: Blood pressure is 112/67, pulse 80, respiratory rate 18, temperature 99.1. Pulse oximetry 100% on room air. In general, this is an alert, cooperative young woman complaining of a little bit of left flank pain, a little bit of urgency of urination tonight. Skin is warm and dry, no rash. Head normocephalic. Neck supple. Back - very slightly tender in the right flank to palpation. Abdomen soft, nontender to palpation, normal bowel sounds, no guarding, no rebound, no palpable masses. Her urine is now negative. Nitrites negative. Leukocyte esterase basically clear. Urine test negative. White count is normal at 5500, hemoglobin 13.4. EMERGENCY DEPARTMENT COURSE: She has been stable the entire time. DISCHARGE PLAN: Fluids, continue antibiotics bid for the next three days and see PMD for recheck of urine after that. Ibuprofen 400 mg prn pain q4h. DIAGNOSIS: Partially treated urinary tract infection. CONDITION: Stable. [id number] _ YUNIEL CHILDRESS MD MT: Document: [id number] [place], [place] Name: MR#: DELORES JEWELL [facility] -25 EMERGENCY ROOM ENCOUNTER Page 2 of 2 LCN: CATARINO DSC: 09/15/2004 [place], [place] Name: MR#: JEWELL ESTRELLA [id number] : Admit Date: Account #: 1980 09/15/2004 [id number] Doctor: YUNIEL CHILDRESS MD EMERGENCY ROOM ENCOUNTER Page 1 of 2 documented in this encounter Plan of Treatment Not on filedocumented as of this encounter Visit Diagnoses Not on filedocumented in this encounter Care Teams Refractory Mixer Relationship Specialty Start Date End Date Pedro Burt MD PCP - General 10/19/02 09/12/13 [address] [id number] documented as of this encounter
--- OUTSIDE RECORDS SUMMARY | 2022-04-10 23:06 | XMS_ITS | Encounter Summary ---
:1980 Author Organization [facility] Address [address] [place] [address] Care Team Providers Name Role Phone Pedro Burt MD Primary Care Provider Reason for Visit Reason Onset Date Comments Refill Request 02/16/2008 gen vicodin Encounter Details Date Type Department Care Team Description 02/16/2008 Refill [facility] Pedro Burt MD Refill Request (gen Clinic [place] [address] vicodin) [id number] [place] [phone] Social History Tobacco Use Types Packs/Day Years Used Date Smoking Tobacco: Every Day Cigarettes 5 Comments: less than 1/2 pack per day Alcohol Use Standard Drinks/Week Comments No 0 (1 standard drink = 0.6 oz pure alcoho l) Sex Assigned at Date Recorded Not on file documented as of this encounter Miscellaneous Notes Telephone Encounter - Mei Pacheco - 02/20/2008 3:15 PM CDT Notified pt - rx faxed in. Jesús Pacheco R.N. Telephone Encounter - Marce Altamirano - 02/16/2008 3:49 PM CDT Last OV: 02/02/08 Reason for visit: rhinitis, folliculitis Date last filled: 06/28/07 Not PSO, routed Marce Altamirano RN documented in this encounter Plan of Treatment Not on filedocumented as of this encounter Visit Diagnoses Diagnosis Thoracic or lumbosacral neuritis or radi culitis, unspecified documented in this encounter Care Teams Doughnut Fryer Relationship Specialty Start Date End Date Pedro Burt MD PCP - General 10/19/02 09/12/13 [address] [place] [id number] documented as of this encounter
--- OUTSIDE RECORDS SUMMARY | 2022-04-10 23:06 | XMS_ITS | Encounter Summary ---
:1980 Author Organization [facility] Address [address] [place] [address] Care Team Providers Name Role Phone Pedro Burt MD Primary Care Provider Reason for Visit Reason Onset Date Comments Forms 02/04/2007 Encounter Details Date Type Department Care Team Description 02/04/2007 Telephone [facility] Vickie Burt MD Forms [facility] [address] [place] [address] [place], [place] [id number] [place] [address] [phone] Social History Tobacco Use Types Packs/Day Years Used Date Smoking Tobacco: Every Day Cigarettes 5 Comments: less than 1/2 pack per day Alcohol Use Standard Drinks/Week Comments No 0 (1 standard drink = 0.6 oz pure alcoho l) Sex Assigned at Date Recorded Not on file documented as of this encounter Miscellaneous Notes Telephone Encounter - Dwight Perry - 02/10/2007 10:14 AM CDT Pt has not returned call, Dr. Burt's assistance does not recall seeing form, form was never placed in pt pickle cutter file at front desk lead. Dwight Perry LPN Telephone Encounter - Dwight Peryr - 02/08/2007 2:59 PM CDT Left message on machine for patient to call back. No forms at [facility], did she receive them? Dwight Perry LPN Telephone Encounter - Janell Sandoval - 02/04/2007 3:22 PM CDT LM on for pt to call back. Completed FMLA forms at [facility] awaiting destination. Santana Sandoval CMA documented in this encounter Plan of Treatment Not on filedocumented as of this encounter Visit Diagnoses Not on filedocumented in this encounter Care Teams Supervisor Core Shop Relationship Specialty Start Date End Date Pedro Burt MD PCP - General 10/19/02 09/12/13 [address] [id number] documented as of this encounter
--- OUTSIDE RECORDS SUMMARY | 2022-04-10 23:06 | XMS_ITS | Encounter Summary ---
:1980 Author Organization [facility] Address [address] [place] [address] Care Team Providers Name Role Phone Pedro Burt MD Primary Care Provider Reason for Visit Reason Comments Work Comp Pre-Op Exam Encounter Details Date Type Department Care Team Description 02/21/2009 Office Visit [facility] Pedro Burt MD Preop General Physical Exam (Primary Dx) ; Clinic [place] [address] [address]; [address] [place] [address] [id number] Social History Tobacco Use Types Packs/Day Years Used Date Smoking Tobacco: Every Day Cigarettes 5 Comments: 5-6 cigarettes daily Alcohol Use Standard Drinks/Week Comments No 0 (1 standard drink = 0.6 oz pure alcoho l) Sex Assigned at Date Recorded Not on file documented as of this encounter Last Filed Vital Signs Vital Sign Reading Time Taken Comments Blood Pressure 98/72 02/21/2009 1:02 PM CDT Pulse 64 02/21/2009 1:02 PM CDT Temperature 37.1 ??C (98.8 ??F) 02/21/2009 1:02 PM CDT Respiratory Rate 16 02/21/2009 1:02 PM CDT Oxygen Saturation - - Inhaled Oxygen Concentration - - Weight 46.3 kg (102 lb) 02/21/2009 1:02 PM CDT Height 166.4 cm (5' 5.5) 02/21/2009 1:02 PM CDT Body Mass Index 16.72 02/21/2009 1:02 PM CDT documented in this encounter Progress Notes Dwight Ruiz - 02/21/2009 1:06 PM CDT [facility] [address] [place] [address] PRE-OP EVALUATION: Today's date: 02/21/2009 Jewell Lambert (: 1980) presents for pre-operative evaluation assessment as requested by . She requires evaluation and anesthesia risk assessment prior to undergoing surgery/procedure for proposed procedure: L1-2 fusion, artificial disks L3-4 Date of Surgery/ Procedure: 02/27/09 Time of Surgery/ Procedure: 8:00 AM Hospital/Surgical Facility: [facility] Fax number for surgical facility: Primary Physician: Pedro Burt MD Type of Anesthesia Anticipated: General History of anesthesia complications: NONE History of abnormal bleeding: NONE History of blood transfusions: NO Patient has a Health Care Directive or Living Will: NO PREOP QUESTIONNAIRE 1- NO - Do you ever have any pain or discomfort in your chest? 2- NO - Have you ever had a severe pain across the front of your chest lasting for half an hour or more? 3- NO - Do you have swelling in your feet or ankles at times? 4- NO - Are you troubled by shortness of breath when: walking on the level/ up a slight hill/ at night? 5- NO - Does your chest ever sound wheezy or whistling? 6- NO - Do you currently have a cold, bronchitis or other respiratory infection? 7- NO - Have you had a cold, bronchitis or other respiratory infection within the last 2 weeks? 8- NO - Do you usually have a cough? 9- YES - Do you sometimes get pains in the calves of your legs when you walk? 10-NO - Do you or anyone in your family have previous history of blood clots? 11-NO - Do you or does anyone in your family have serious bleeding problem such as prolonged bleeding following surgeries or cuts? 12-YES - Have you ever had problems with anemia or been told to take iron pills? 13-NO - Have you had any abnormal blood loss such as black, tarry or bloody stools, or abnormal vaginal bleeding? 14-NO - Have you or any of your relatives ever had problems with anesthesia? 15-NO - Do you snore or stop breathing at night? 16-NO - Do you have any prosthetic heart valves or joints? 17-NO - Is there any chance that you may be ? HPI: See problem list for active medical problems. Problems all longstanding and stable, except as noted/documented. See ROS for pertinent symptoms related to these conditions. . Patient Active Problem List Diagnoses Date Noted ??? GENERALIZED ANXIETY DIS [300.02] 05/23/2007 ??? TOBACCO USE DISORDER [305.1] 03/16/2007 ??? ATTN DEFICIT W HYPERACT [314.01] 07/22/2004 ??? SUPERVIS OTHER NORMAL PREG [V22.1] 10/17/2002 Past Medical History Diagnosis Date ??? Generalized Anxiety Disorder 02/2007 ??? Tobacco Use Disorder 1999 No past surgical history on file. Current outpatient prescriptions Medication Sig ??? MIRENA 20 MCG/24HR IU IUD None Entered ??? VICODIN ES 7.5-750 MG OR TABS ONE TABLET EVERY 6 HOURS NEEDED FOR PAIN ??? CLARITIN-D 24 HOUR# 10-240 MG OR TB24 1 TABLET DAILY ??? FLONASE INHA 50 MCG/DOSE NA INHALE 2 SPRAYS IN EACH NOSTRIL ONCE DAILY ??? TAZORAC 0.1 % EX CREA aplpy hs OTC products: no recent use of OTC ASA, NSAIDS or Steroids Allergies Allergen Reactions ??? No Known Drug Allergies Latex Allergy: NO History Substance Use Topics ??? Tobacco Use: Yes -- for 5 years 5-6 cigarettes daily ??? 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 REVIEW OF SYSTEMS: C: NEGATIVE for fever, chills, change in weight E/M: NEGATIVE for ear, mouth and throat problems R: NEGATIVE for significant cough or SOB CV: NEGATIVE for chest pain, palpitations or peripheral edema EXAM: BP 98/72 Pulse 64 Temp (Src) 98.8 ??F (37.1 ??C) (Oral) Resp 16 Ht 5' 5.5 (1.664 m) Wt 102 lb (46.267 kg) LMP IUD GENERAL APPEARANCE: healthy, alert and no distress HENT: ear canals and TM's normal and nose and mouth without ulcers or lesions RESP: lungs clear to auscultation - no rales, rhonchi or wheezes CV: regular rate and rhythm, normal S1 S2, no S3 or S4 and no murmur, click or rub ABDOMEN: soft, nontender, no HSM or masses and bowel sounds normal NEURO: Normal strength and tone, sensory exam grossly normal, mentation intact and speech normal DIAGNOSTICS: Preop Testing Labs: see attached IMPRESSION: Reason for surgery/procedure: Chronic back pain Diagnosis/reason for consult: Preoperative evaluation and consultation The proposed surgical procedure is considered LOW risk. For above listed surgery and anesthesia: Patient is at LOW risk for surgery/procedure and perioperative/procedure complications. RECOMMENDATIONS: --Approval given to proceed with proposed procedure, without further diagnostic evaluation. Signed Electronically by: Pedro Burt M.D. Copy of this evaluation report is provided to requesting physician. Preop Guidelines documented in this encounter Nursing Notes 02/21/2009 1:00 PM CDT >> DWIGHT RUIZ Sis Feb 21, 2009 1:09 PM Patient presents with: Work Comp Pre-Op Exam Initial BP 98/72 Pulse 64 Temp (Src) 98.8 ??F (37.1 ??C) (Oral) Resp 16 Ht 5' 5.5 (1.664 m) Wt 102 lb (46.267 kg) LMP IUD Body mass index is 16.72 kg/(m^2). BP completed using cuff size regular, right arm Dwight Ruiz LPN documented in this encounter Plan of Treatment Not on filedocumented as of this encounter Procedures Procedure Name Priority Date/Time Associated Comments Diagnosis HCL UA MICRO IF Routine 02/21/2009 1:08 PM Dysuria Results for this POSITIVE CDT Preop General procedure are in Physical Exam the results section. HCL HEMOGLOBIN Routine 02/21/2009 1:07 PM Preop General Result s for this NONLAB CDT Physical Exam procedure are in the results section. documented in this encounter Results (ABNORMAL) UA MICRO IF POSITIVE (02/21/2009 1:08 PM CDT) [facility] Method Time Signature Color Urine Yellow [facility] Appearance Urine Clear [facility] Glucose Urine Negative NEG mg/dL [facility] Bilirubin Urine Negative NEG [facility] Ketones Urine Negative NEG mg/dL [facility] Specific [place] 1.020 1.003 - [place] Urine 1.035 [facility] Blood Urine Negative NEG [facility] pH Urine 8.0 (H) 5.0 - 7.0 [place] pH [facility] Protein Albumin Negative NEG mg/dL [place] Urine [facility] Urobilinogen 0.2 0.2 - 1.0 [place] Urine EU/dL [facility] Nitrite Urine Negative NEG [facility] Leukocyte Negative NEG [place] Esterase Urine [facility] Source Midstream [place] Urine [facility] Specimen Anatomical Collection Method Collection Time Receive d Time (Source) Location / / Volume Laterality 02/21/2009 1:08 PM 9 1:11 CDT PM CDT Pedro Burt MD LABORATORY Performing Organization Address [facility]/ZIP [facility] Phon e Number [address] [address] [facility] HGB (02/21/2009 1:07 PM CDT) P athologist Signature Hemoglobin 14.3 11.7 - 15.7 [facility] g/dL [facility] Specimen Anatomical Collection Method Collection Time Receive d Time (Source) Location / / Volume Laterality 02/21/2009 1:07 PM 9 1:10 CDT PM CDT Pedro Burt MD LABORATORY Performing Organization Address [facility] Phon e Number [address] [address] [facility] documented in this encounter Visit Diagnoses Diagnosis Preop general physical exam - Primary Other specified pre-operative examinatio n Dysuria Contraception Unspecified contraceptive management documented in this encounter Care Teams Manager Channel Relationship Specialty Start Date End Date Pedro Burt MD PCP - General 10/19/02 09/12/13 [address] [id number] documented as of this encounter
--- OUTSIDE RECORDS SUMMARY | 2022-04-10 23:06 | XMS_ITS | Encounter Summary ---
:1980 Author Organization [facility] Address [address] [place] [address] Care Team Providers Name Role Phone Pedro Burt MD Primary Care Provider Reason for Visit Reason Onset Date Comments Medication Request 03/22/2007 [place] Encounter Details Date Type Department Care Team Description 03/22/2007 Telephone [facility] Pedro Burt MD Medication Request ([facility]) Clinic [address] [phone] (Wo rk) Social History Tobacco Use Types Packs/Day Years Used Date Smoking Tobacco: Every Day Cigarettes 5 Comments: less than 1/2 pack per day Alcohol Use Standard Drinks/Week Comments No 0 (1 standard drink = 0.6 oz pure alcoho l) Sex Assigned at Date Recorded Not on file documented as of this encounter Miscellaneous Notes Telephone Encounter - India Huston - 03/22/2007 8:20 AM CDT Staff Message copied by INDIA HUSTON on 03/22/2007 at 8:20 AM ------ Message from: IBETH SMITH Created: 03/21/2007 at 6:04 PM Regarding: CL/needs rx for headaches/pw Pt called Mon evening to request medication for headache pain. Please call her at [phone]. documented in this encounter Plan of Treatment Not on filedocumented as of this encounter Visit Diagnoses Diagnosis Thoracic or lumbosacral neuritis or radi culitis, unspecified - Primary Generalized anxiety disorder documented in this encounter Care Teams Auto Fleet Maintenance Manager Relationship Specialty Start Date End Date Pedro Burt MD PCP - General 10/19/02 09/12/13 [address] [id number] documented as of this encounter
--- OUTSIDE RECORDS SUMMARY | 2022-04-10 23:06 | XMS_ITS | Encounter Summary ---
:1980 Author Organization [facility] Address [address] [place] [address] Care Team Providers Name Role Phone Pedro Burt MD Primary Care Provider Reason for Visit Reason Onset Date Comments Refill Request 02/15/2009 Encounter Details Date Type Department Care Team Description 02/14/2009 MyC Refill [facility] Vickie Burt MD Refill Request [place] [address] [place] [address] (W ork) [address] [phone] Social History Tobacco Use Types Packs/Day Years Used Date Smoking Tobacco: Every Day Cigarettes 5 Comments: less than 1/2 pack per day Alcohol Use Standard Drinks/Week Comments No 0 (1 standard drink = 0.6 oz pure alcoho l) Sex Assigned at Date Recorded Not on file documented as of this encounter Miscellaneous Notes Telephone Encounter - Pedro Burt - 02/15/2009 12:58 PM CDT Last filled 01-22-09, vale use Telephone Encounter - Fanta Pineda - 02/15/2009 12:43 PM CDT Date of last office visit : Reason for visit : back pain Date last filled : not given Fanta Pineda RN Telephone Encounter - Fanta Pineda - 02/15/2009 12:41 PM CDT Message from [employer]: Jewell Garciabarry would like a refill of the following medications: VICODIN ES 7.5-750 MG OR TABS [Pedro Burt MD] Preferred pharmacy: [facility] Comment: documented in this encounter Plan of Treatment Not on filedocumented as of this encounter Visit Diagnoses Diagnosis Thoracic or lumbosacral neuritis or radi culitis, unspecified - Primary documented in this encounter Care Teams All Source Intelligence Analyst Relationship Specialty Start Date End Date Pedro Burt MD PCP - General 10/19/02 09/12/13 [address] [id number] documented as of this encounter
--- OUTSIDE RECORDS SUMMARY | 2022-04-10 23:06 | XMS_ITS | Encounter Summary ---
:1980 Author Organization [place] Address [address] [place] [address] Care Team Providers Name Role Phone Pedro Burt MD Primary Care Provider Reason for Visit Reason Onset Date Comments Refill Request 11/01/2008 Vicodin Encounter Details Date Type Department Care Team Description 11/01/2008 Refill [facility] Pedro Burt MD Refill Request (Vicodin) Clinic [address] [address] [phone] Social History Tobacco Use Types Packs/Day Years Used Date Smoking Tobacco: Every Day Cigarettes 5 Comments: less than 1/2 pack per day Alcohol Use Standard Drinks/Week Comments No 0 (1 standard drink = 0.6 oz pure alcoho l) Sex Assigned at Date Recorded Not on file documented as of this encounter Miscellaneous Notes Telephone Encounter - Eliz Squires - 11/01/2008 1:46 PM CDT Hand faxed Needs to be seen for further refills per CL Eliz Squires, RN Telephone Encounter - Marce Altamirano - 11/01/2008 11:50 AM CDT Last OV: 06/25/08 Reason for visit: lumbarsacral neuritis, anxiety Date last filled: 10/17/08 Pt sent [employer] message, was refused, [place] please advise, if refused NEED TO CHANGE AMOUNT TO 0 AND WRITE DENIED IN SIG SO PHARMACY GETS NOTIFIED Comment: Hey Dr. Burt its Jewell!! Hope you are doing good!! Hey I have a question [place] this weekend to visit my family in [place] and I have about 15 vicodin left and do not want to run out up there is there, wondering if you could refill my perscription I know its alex early but I do not want to be in pain and be all the way up there. Let me know k or call [phone] Jewell Navarrete RN documented in this encounter Plan of Treatment Not on filedocumented as of this encounter Visit Diagnoses Diagnosis Thoracic or lumbosacral neuritis or radi culitis, unspecified documented in this encounter Care Teams Histotechnician Relationship Specialty Start Date End Date Pedro Burt MD PCP - General 10/19/02 09/12/13 [address] [id number] documented as of this encounter
--- OUTSIDE RECORDS SUMMARY | 2022-04-10 23:06 | XMS_ITS | Encounter Summary ---
:1980 Author Organization [facility] Address [address] [place] [address] Care Team Providers Name Role Phone Pedro Burt MD Primary Care Provider Reason for Visit Reason Comments UTI Encounter Details Date Type Department Care Team Description 09/05/2008 Office Visit [facility] Sheri Quevedo PA-C Urinary Tract [facility] Infection, Site not [address] [place] [address] CTR Specified ([place] [address] Dx) [address] [place], [place] [address] (Wo rk) Social History [...] Sign Reading Time Taken Comments Blood Pressure 112/62 09/05/2008 4:16 PM CDT Pulse 81 09/05/2008 4:16 PM CDT Temperature 37.3 ??C (99.2 ??F) 09/05/2008 4:16 PM CDT Respiratory Rate 18 09/05/2008 4:16 PM CDT Oxygen Saturation 99% 09/05/2008 4:16 PM CDT Inhaled Oxygen Concentration - - Weight - - Height - - Body Mass Index - - documented in this encounter Progress Notes Sheri Quevedo - 09/05/2008 4:26 PM CDT Quick Note: Discussed with patient Sheri Quevedo - 09/05/2008 3:56 PM CDT SUBJECTIVE: Jewell Lambert is a 28 year old female who presents today for a possible UTI. Symptoms of dysuria, urgency, frequency, burning, suprapubic pain and pressure and voiding in small amounts have been goingon for 3day(s). Hematuria yes mild. gradual onset and worse since today and severe. There is no history of fever, chills, nausea or vomiting. No history of vaginal or penile discharge. This patient does have a history of urinary tract infections. Patient denies long duration, rigors, flank pain, temperature > 101 degrees F. and Vomiting, significant nausea or diarrhea. C/O recent Tx for vaginosis.C/O vaginal itching/irritation/d/c. Worry with yeast infection also. Past Medical History Diagnosis Date ??? GENERALIZED ANXIETY DIS 02/2007 ??? TOBACCO USE DISORDER 1999 Current outpatient prescriptions Medication Sig ??? VICODIN 5-500 MG OR TABS ONE TO TWO TABLETS EVERY 4 TO 6 HOURS NEEDED FOR PAIN ??? CYMBALTA 60 MG OR CPEP 1 CAPSULE DAILY ??? NEURONTIN 300 MG OR CAPS 1 tab PO QHS ??? ENSURE OR LIQD 1 can PO TID with meals ??? TAZORAC 0.1 % EX CREA aplpy hs ??? FLONASE INHA 50 MCG/DOSE NA INHALE 2 SPRAYS IN EACH NOSTRIL ONCE DAILY ??? MINOCYCLINE HCL 100 MG OR TABS 1 TABLET EVERY day ? ? CHANTIX STARTING MONTH NIRMALA 0.5 MG X 11 & 1 MG X 42 OR MISC 0.5mg daily for 3 days, then 0.5mg twice daily for 4 days, then 1mg twice daily. Take with food and stop smoking 7 days after treatment begins. History Substance Use Topics ??? Tobacco Use: Yes -- for 5 years less than 1/2 pack per day ??? Alcohol Use: No ROS: CONSTITUTIONAL:NEGATIVE for fever, chills, change in weight EYES: NEGATIVE for vision changes or irritation ENT/MOUTH: NEGATIVE for ear, mouth and throat problems RESP:NEGATIVE for significant cough or SOB CV: NEGATIVE for chest pain, palpitations or peripheral edema GI: NEGATIVE for nausea, abdominal pain, heartburn, or change in bowel habits : dysuria, frequency, hematuria, hesitancy, urgency and urinary tract infection NEURO: NEGATIVE for weakness, dizziness or paresthesias OBJECTIVE: BP 112/62 Pulse 81 Temp (Src) 99.2 ??F (37.3 ??C) (Temporal) Resp 18 SpO2 99% LMP 08/29/2008 GENERAL APPEARANCE: healthy, alert and no distress EYES: Eyes grossly normal to inspection and PERRL HENT: TM's normal bilaterally and oral mucous membranes moist, no erythema noted NECK: no adenopathy and no asymmetry, masses, or scars RESP: lungs clear to auscultation - no rales, rhonchi or wheezes CV: regular rates and rhythm, normal S1 S2, no murmur noted ABDOMEN: soft, normal bowel sounds BACK: No CVA tenderness GU_female: deferred, suprapubic tenderness moderate SKIN: no suspicious lesions or rashes DX: Office Visit on 09/05/2008 Component Date Value Range Status ??? Source 09/05/2008 midstream - Final ??? COLOR 09/05/2008 patrick - Final ??? APPEARANCE 09/05/2008 hazy - Final ??? GLUCOSE (mg/dL) 09/05/2008 negative Neg- Final ??? BILI (URINE) 09/05/2008 negative Neg- Final ??? KETONES (mg/dL) 09/05/2008 negative neg-neg Final ??? SPECIFIC GRAVITY 09/05/2008 1.025 1.003-1.035 Final ??? BLOOD (URINE) 09/05/2008 non-hemolyzed moderate Neg- Final ??? pH 09/05/2008 6.5 5.0-7.0 Final ??? PROTEIN (URINE) (mg/dL) 09/05/2008 negative neg-neg Final ??? UROBILINOGEN (EU/dL) 09/05/2008 0.2 0.2-1.0 Final ??? Nitrites 09/05/2008 negative Neg- Final ??? Leuk Esterase 09/05/2008 3+ Neg- Final ASSESSMENT: Lower, uncomplicated urinary tract infection. PLAN: Encounter Diagnoses Code Name Primary? Qualifier ??? 599.0 Urinary Tract Infection, Site not Specified Yes Plan: U/A, W/O MICRO, NON AUTO, BACTRIM DS 800-160 MG OR TABS, DIFLUCAN 150 MG OR TABS Drink plenty of fluids. Prevention and treatment of UTI's discussed. Signs and symptoms of pyelonephritis mentioned. Stress fluids/BCM during intercourse/possible prophalaxis by PCP given frequent HX. FU with PCP in 2-3 days if not improved or sooner if worsen. Sheri Quevedo PA-C documented in this encounter Plan of Treatment Not on filedocumented as of this encounter Procedures Procedure Name Priority Date/Time Associated Diagnosis Comme nts ZZCL U/A, W/O Routine 09/05/2008 4:23 PM Urinary Tract Results for this MICRO, NON AUTO CDT Infection, Site not proce dure are in Specified the results section. documented in this encounter Results (ABNORMAL) Urine Test [62053.003] (09/05/2008 4:23 PM CDT) [facility] Method Time Signature Source midstream [facility] Color Urine patrick [facility] Appearance Urine hazy [facility] Glucose negative Neg mg/dL [facility] Bilirubin Urine negative Neg [facility] Ketones negative neg - neg [facility] mg/dL Specific [place] 1.025 1.003 - [facility] Urine 1.035 Blood Urine non-hemolyzed Neg [facility] moderate pH Arterial 6.5 5.0 - 7.0 [facility] Protein Urine negative neg - neg [facility] mg/dL Urobilinogen 0.2 0.2 - 1.0 [facility] Urine EU/dL Nitrite Urine negative Neg [facility] Leukocyte 3+ Neg [facility] Esterase Urine Sheri Quevedo PA-C LABORATORY Performing Organization Address City/State/ZIP Code [facility] e Number [place] [facility] [address] [place] [address] [facility] documented in this encounter Visit Diagnoses Diagnosis Urinary tract infection, site not specif ied - Primary documented in this encounter Care Teams Director Of Clinical Trials Relationship Specialty Start Date End Date Pedro Burt MD PCP - General 10/19/02 09/12/13 [address] [id number] documented as of this encounter
--- OUTSIDE RECORDS SUMMARY | 2022-04-10 23:06 | XMS_ITS | Encounter Summary ---
:1980 Author Organization [facility] Address [address] [place] [address] Care Team Providers Name Role Phone Pedro Burt MD Primary Care Provider Encounter Details Date Type Department Care Team Description 09/15/2004 Historic Results INTERFACED REPORT Eldon Childress MD [facility] [facility] [address] [place], [place] [address] (Wo rk) Social History Tobacco Use Types [...] Procedure Name Priority Date/Time Associated Comments Diagnosis HEMOGRAM DIFFERENTIAL STAT 09/15/2004 9:36 PM Results for this AND PLATELET CDT procedure are i n the results section. HCG QUALITATIVE URINE STAT 09/15/2004 9:20 PM Results for this CDT procedure are i n the results section. UA MACROSCOPIC WITH STAT 09/15/2004 9:20 PM Re sults for this REFLEX TO MICRO CDT procedure ar e in the results section. documented in this encounter Results (ABNORMAL) Hemogram differential and platelet (09/15/2004 9:36 PM CDT) Component Value Ref Test Analysis Performed At [facility] Range Method Time Signature MCV 84 78 - 100 MISYS fl MCH 28.2 26.5 - MISYS 33.0 pg MCHC 33.4 32.0 - MISYS 36.0 g/dL RDW 11.7 10.0 - MISYS 15.0 % RBC Count 4.76 3.8 - MISYS 5.2 10e12/L WBC 5.5 4.0 - MISYS 11.0 10e9/L Hemoglobin 13.4 11.7 - MISYS 15.7 g/dL Hematocrit 40.1 35.0 - MISYS 47.0 % % Neutrophils 35 (L) 40 - 75 MISYS % % Lymphocytes 54 (H) 20 - 48 MISYS % % Monocytes 8 0 - 12 % MISYS % Eosinophils 2 0 - 6 % MISYS % Basophils 1 0 - 2 % MISYS Platelet Count 204 150 - MISYS 450 10e9/L Absolute 1.9 1.6 - MISYS Neutrophil 8.3 10e9/L Absolute 3.0 0.8 - MISYS Lymphocytes 5.3 10e9/L Absolute 0.4 0.0 - MISYS Monocytes 1.3 10e9/L Absolute 0.1 0.0 - MISYS Eosinophils 0.7 10e9/L Absolute 0.1 0.0 - MISYS Basophils 0.2 10e9/L Platelet Normal MISYS Estimate Diff Method Manual MISYS Differential RBC Morphology Consistent with MISYS reported results Specimen Anatomical Collection Method Collection Time Receive d Time (Source) Location / / Volume Laterality 09/15/2004 9:36 PM 5 9:36 CDT PM CDT Nam Childress MD LAB - BLOOD ORDERABLES Performing Organization Address City/State/ZIP Code Phon e Number MISYS UA macroscopic with reflex to micro (09/15/2004 9:20 PM CDT) [facility] Method Time Signature Source Midstream MISYS Urine Color Urine Yellow MIS[facility] Appearance Urine Clear M[facility] Glucose Urine Negative NEG mg/dL MIS[facility] Bilirubin Urine Negative NEG MIS[facility] Ketones Urine Negative NEG mg/dL MISYS Specific [place] 1.025 1.001 - MISYS Urine 1.035 Blood Urine Negative NEG MIS[facility] pH Urine 7.0 5.0 - 7.0 MIS[facility] pH Protein Albumin Negative NEG mg/dL MIS[facility] Urine Urobilinogen 1.0 0.2 - 1.0 MIS[facility] Urine EU/dL Nitrite Urine Negative NEG M[facility] Leukocyte Negative NEG [facility] Esterase Urine Specimen Anatomical Collection Method Collection Time Receive d Time (Source) Location / / Volume Laterality 09/15/2004 9:20 PM 5 9:23 CDT PM CDT Nam Childress MD LAB - URINE ORDERABLES Performing Organization Address City/State/ZIP Code Phon e Number MISYS HCG qualitative urine (09/15/2004 9:20 PM CDT) P athologist Signature HCG Qual Urine Negative NEG MISYS Specimen Anatomical Collection Method Collection Time Receive d Time (Source) Location / / Volume Laterality 09/15/2004 9:20 PM 5 9:24 CDT PM CDT Nam Childress MD LAB - URINE ORDERABLES Performing Organization Address City/State/ZIP Code Phon e Number MISYS documented in this encounter Visit Diagnoses Not on filedocumented in this encounter Care Teams Travel Sales Consultant Relationship Specialty Start Date End Date Pedro Burt MD PCP - General 10/19/02 09/12/13 [address] [id number] documented as of this encounter
--- OUTSIDE RECORDS SUMMARY | 2022-04-10 23:06 | XMS_ITS | Encounter Summary ---
:1980 Author Organization [facility] Address [address] [place] [address] Care Team Providers Name Role Phone Pedro Burt MD Primary Care Provider Danette Shepherd MD Primary Care Provider Reba Veliz DO Unavailable [phone] Jairon Greene MD Unavailable [facility] Primary Care Provider [phone] Encounter Details Date Type Department Care Team Description 02/27/2009 [facility] Pedro Burt MD CONSULTATION (Primary [facility] [place] [address] [place] [address]) [address] [facility] [address] [phone] (Wo rk) Social History Tobacco Use Types [...] as of this encounter Visit Diagnoses Diagnosis CONSULTATION - Primary documented in this encounter Care Teams First Grade Teacher Relationship Specialty Start Date End Date Pedro Burt MD PCP - General 10/19/02 09/12/13 [address] [place] [address] Danette Shepherd MD PCP - General Family Practice 09/13/13 12/16/21 [facility] [address] [place] [address] Rosette Hurt PCP - General 12/17/21 [place] [address] [place] [address] Reba Veliz Assigned OBGYN Provider 03/15/20 07/06/20 DO Silvina [address] [place] [address] [address] [place] [address] Jairon Greene, Assigned Neuroscience 03/15/20 10/26/20 Provider [address] [facility] [address] [place] [address] documented as of this encounter
--- OUTSIDE RECORDS SUMMARY | 2022-04-10 23:06 | XMS_ITS | Encounter Summary ---
:1980 Author Organization [facility] Address [address] [place] [address] Care Team Providers Name Role Phone Pedro Burt MD Primary Care Provider Reason for Visit Reason Onset Date Comments Refill Request 09/24/2004 Concerta Encounter Details Date Type Department Care Team Description 09/24/2004 Refill [facility] [place] [facility] Glen Cooper MD Refill Request Clinic [facility] (Concerta) [address] [place], [place] [address] [facility] [address] [address] [place], [place] [address] (Wo rk) Social History Tobacco Use Types Packs/Day Years Used Date Smoking Tobacco: Every Day Cigarettes 5 Comments: less than 1/2 pack per day Alcohol Use Standard Drinks/Week Comments No 0 (1 standard drink = 0.6 oz pure alcoho l) Sex Assigned at Date Recorded Not on file documented as of this encounter Miscellaneous Notes Telephone Encounter - [place] Perry - 09/24/2004 3:18 PM CDT Rx at front window cashier. Left mssg on machine. [place] Perry LPN Telephone Encounter - Glen Cooper - 09/24/2004 2:45 PM CDT Done, please put in my IN box for signature Telephone Encounter - 09/24/2004 2:41 PM CDT Staff Message copied by INDIA HUSTON on 09/24/2004 at 2:41 PM ------ Message from: LONDON BENITEZ Created: 09/24/2004 at 2:38 PM Regarding: jy needs written script pt needs written script for concerta please call when ready to be picked up [phone] documented in this encounter Plan of Treatment Not on filedocumented as of this encounter Visit Diagnoses Diagnosis Attention deficit disorder with hyperact ivity(314.01) - Primary Attention deficit disorder with hyperact ivity documented in this encounter Care Teams Blend Technician Relationship Specialty Start Date End Date Pedro Burt MD PCP - General 10/19/02 09/12/13 [address] [id number] documented as of this encounter
--- OUTSIDE RECORDS SUMMARY | 2022-04-10 23:06 | XMS_ITS | Encounter Summary ---
:1980 Author Organization [place] Address [address] [place] [address] Care Team Providers Name Role Phone Pedro Burt MD Primary Care Provider Reason for Visit Reason Onset Date Comments Formulary Issue 12/14/2008 tazorac is NOT cover ed Encounter Details Date Type Department Care Team Description 12/14/2008 Telephone [facility] Pedro Burt MD Formulary Issue Clinic [address] (tazorac is NOT [address] [place] [address] covered) [place] [address] [phone] (Wo rk) Social History Tobacco Use Types Packs/Day Years Used Date Smoking Tobacco: Every Day Cigarettes 5 Comments: less than 1/2 pack per day Alcohol Use Standard Drinks/Week Comments No 0 (1 standard drink = 0.6 oz pure alcoho l) Sex Assigned at Date Recorded Not on file documented as of this encounter Miscellaneous Notes Telephone Encounter - Rachel Tavera - 12/18/2008 3:33 PM CDT Was sold earlier this month for $3 per pharmacy, PA must be approved. Janel Tavera CMA Telephone Encounter - Guillermina Black - 12/14/2008 11:50 AM CDT Fax from pharmacy states Tazorac is NOT covered. CDMI PA form faxed. Guillermina Black RN documented in this encounter Plan of Treatment Not on filedocumented as of this encounter Visit Diagnoses Not on filedocumented in this encounter Care Teams International Tax Manager Relationship Specialty Start Date End Date Pedro Burt MD PCP - General 10/19/02 09/12/13 [address] [id number] documented as of this encounter
--- OUTSIDE RECORDS SUMMARY | 2022-04-10 23:06 | XMS_ITS | Encounter Summary ---
:1980 Author Organization [facility] Address [address] [place] [address] Care Team Providers Name Role Phone Pedro Burt MD Primary Care Provider Reason for Visit Reason Onset Date Comments Refill Request 10/16/2008 Vicodin Encounter Details Date Type Department Care Team Description 10/16/2008 Refill [facility] Pedro Burt MD Refill Request (Vicodin) Clinic [address] [address] [phone] Social History Tobacco Use Types Packs/Day Years Used Date Smoking Tobacco: Every Day Cigarettes 5 Comments: less than 1/2 pack per day Alcohol Use Standard Drinks/Week Comments No 0 (1 standard drink = 0.6 oz pure alcoho l) Sex Assigned at Date Recorded Not on file documented as of this encounter Miscellaneous Notes Telephone Encounter - Rachel Tavera - 10/16/2008 2:47 PM CDT Patient is requesting a refill on their medications from the pharmacy. Last OV: 06/25/2008 Reason: Thoracic and Lumbosacral Neuritis or Rad.... And Anxiety Last filled: Janel Tavera CMA documented in this encounter Plan of Treatment Not on filedocumented as of this encounter Visit Diagnoses Diagnosis Thoracic or lumbosacral neuritis or radi culitis, unspecified documented in this encounter Care Teams Business Analytics Faculty Member Relationship Specialty Start Date End Date Pedro Burt MD PCP - General 10/19/02 09/12/13 [address] [id number] documented as of this encounter
--- OUTSIDE RECORDS SUMMARY | 2022-04-10 23:06 | XMS_ITS | Encounter Summary ---
:1980 Author Organization [facility] Address [address] [place] [address] Care Team Providers Name Role Phone Pedro Burt MD Primary Care Provider Reason for Visit Reason Onset Date Comments Refill Request 08/21/2008 Vicodin Encounter Details Date Type Department Care Team Description 08/21/2008 Refill [facility] Pedro Burt MD Refill Request (Vicodin) Clinic [address] [address] [phone] Social History Tobacco Use Types Packs/Day Years Used Date Smoking Tobacco: Every Day Cigarettes 5 Comments: less than 1/2 pack per day Alcohol Use Standard Drinks/Week Comments No 0 (1 standard drink = 0.6 oz pure alcoho l) Sex Assigned at Date Recorded Not on file documented as of this encounter Miscellaneous Notes Telephone Encounter - Ruthy Echols - 08/24/2008 11:40 AM CDT Received 2nd request, they have not received the hard copy so I OKed via the phone for this. If hardcopy found please disregard,shred. Ruthy Echols RN Telephone Encounter - [place] Perry - 08/21/2008 4:[address] Burt out of office through 08/27. Dr. Brasher?? [place] Perry LPN Telephone Encounter - Rachel Tavera - 08/21/2008 2:15 PM CDT Patient is requesting a refill on their medications from the pharmacy. Last OV: 06/25/2008 Reason: Lumbosacral Neuritis Last filled: 07/25/2008 Janel Tavera ADJUNCT INSTRUCTOR OF WOMEN'S STUDIES documented in this encounter Plan of Treatment Not on filedocumented as of this encounter Visit Diagnoses Diagnosis Thoracic or lumbosacral neuritis or radi culitis, unspecified documented in this encounter Care Teams Rural Mail Carrier Relationship Specialty Start Date End Date Perdo Burt MD PCP - General 10/19/02 09/12/13 [address] [id number] documented as of this encounter
--- OUTSIDE RECORDS SUMMARY | 2022-04-10 23:06 | XMS_ITS | Encounter Summary ---
:1980 Author Organization [facility] Address [address] [place] [address] Care Team Providers Name Role Phone Pedro Burt MD Primary Care Provider Reason for Visit Reason Comments Allergies throat has been itchy, notic es from being around animals, and dust, OTC are not helping Derm Problem has family hx of victor manuel kumar, her mother uses Tazorac cream Medication Request wants to talk about adhd Encounter Details Date Type Department Care Team Description 02/02/2008 Office Visit [facility] Pedro Burt MD Chronic Rhinitis; Clinic [place] [address] [address] Fol[place]ul[place] [address] [place] [address] [phone] (Wo rk) Social History Tobacco Use Types [...] Sign Reading Time Taken Comments Blood Pressure 100/70 02/02/2008 2:30 PM CDT Pulse - - Temperature - - Respiratory Rate - - Oxygen Saturation - - Inhaled Oxygen Concentration - - Weight 94.3 kg (208 lb) 02/02/2008 2:30 PM CDT Height 165.1 cm (5' 5) 02/02/2008 2:30 PM CDT Body Mass Index 34.61 02/02/2008 2:30 PM CDT documented in this encounter Progress Notes Pedro Burt - 02/02/2008 4:49 PM CDT SUBJECTIVE: Jewell Lambert 27 year old female presents for chronic allergic rhintis and chin folliculitis (her mom has the latter as well and has had good results with tazorac). The pt has won her workcomp case and will have spinal fusion and disk replalcement (using Jose[employer] equivalent to ProDisk) in 05/2008. Histories Updated through 02-02-2008: Past Medical History Diagnosis Date ??? GENERALIZED ANXIETY DIS 02/2007 ??? TOBACCO USE DISORDER 1999 No past surgical history on file. Family History Problem Relation ??? Heart Maternal Grandmother ??? Psychiatry Mother anxiety Obstetric History T1 P0 TAB1 SAB1 E0 M0 L1 History Social History ??? Marital Status: Spouse Name: Dmitry Number of Children: N/A ??? Years of Education: 13 Occupational History ??? student Social History Main Topics ??? Tobacco Use: Yes -- for 5 years less than 1/2 pack per day ??? Alcohol Use: No ??? 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 ??? Sexually Active: Yes -- Male partner(s) Other Topics Concern ??? Not on file Social History Narrative ??? No narrative on file Current outpatient prescriptions Medication Sig ??? FLONASE INHA 50 MCG/DOSE NA INHALE 2 SPRAYS IN EACH NOSTRIL ONCE DAILY ??? MINOCYCLINE HCL 100 MG OR TABS 1 TABLET EVERY day ??? VICODIN 5-500 MG OR TABS ONE TO TWO TABLETS EVERY 4 TO 6 HOURS NEEDED FOR PAIN ??? CYMBALTA 30 MG OR CPEP 1 CAPSULE TWICE DAILY ? ? CHANTIX STARTING MONTH NIRMALA 0.5 MG X 11 & 1 MG X 42 OR MISC 0.5mg daily for 3 days, then 0.5mg twice daily for 4 days, then 1mg twice daily. Take with food and stop smoking 7 days after treatment begins. ??? CONCERTA 27 MG OR TBCR 1 TABLET EVERY MORNING Allergies as of 02/02/2008 - reviewed 02/02/2008 Allergen Reaction Noted ??? No known drug allergies 10/17/2002 ROS: C: NEGATIVE for fever, chills, change in weight,I: NEGATIVE for worrisome rashes, moles or lesions,E/M: NEGATIVE for ear, mouth and throat problems,R: NEGATIVE for significant cough or SOB,CV: NEGATIVEfor chest pain, palpitations or peripheral edema,GI: NEGATIVE for nausea, abdominal pain, heartburn,or change in bowel habits,: NEGATIVE for frequency, dysuria, or hematuria OBJECTIVE/EXAM: GENERAL APPEARANCE: healthy, alert and no distress SKIN: no suspicious lesions or rashes. Some follicular prmoinences noted under the chin NEURO: Normal strength and tone, mentation intact and speech normal PSYCH: mentation appears normal and affect normal/bright ASSESSMENT/PLAN: 1- Chronic allergic rhinitis. After d/w pt regarding risks and benefits as well as possible side effects, drug interactions and adverse reactions, pt accepts prescription for flonase per hs orders. 2- Folliculitis. After d/w pt regarding risks and benefits as well as possible side effects, drug interactions and adverse reactions, pt accepts prescription for minocin per hs orders. 3- Back pain. To OR in 4 months. documented in this encounter Nursing Notes 02/02/2008 2:30 PM CDT >> KIMBERLY CASTILLO [facility] Feb 02, 2008 2:42 PM Jewell Lambert presents for: Allergies - throat has been itchy, notices from being around animals, and dust, OTC are not helping Derm Problem - has family hx of ingrown hairs, her mother uses Tazorac cream Medication Request - wants to talk about adhd. Initial BP 100/70 Ht 5' 5 (1.651 m) Wt 208 lb (94.348 kg) Body mass index is 34.61 kg/(m^2).. BP completed using cuff size: regular Kimberly Castillo CMA documented in this encounter Plan of Treatment Not on filedocumented as of this encounter Visit Diagnoses Diagnosis Chronic rhinitis Folliculitis Other specified disease of hair and hair follicles documented in this encounter Care Teams Certified Control Systems Technician Relationship Specialty Start Date End Date Pedro Burt MD PCP - General 10/19/02 09/12/13 [address] [id number] documented as of this encounter
--- OUTSIDE RECORDS SUMMARY | 2022-04-10 23:06 | XMS_ITS | Encounter Summary ---
:1980 Author Organization [facility] Address [address] [place] [address] Care Team Providers Name Role Phone Pedro Burt MD Primary Care Provider Reason for Visit Reason Onset Date Comments MyChart Communication 01/08/2009 asking for refills on flonase and jason - d Encounter Details Date Type Department Care Team Description 01/07/2009 MyC Refill [facility] Pedro Burt MD MyChart Communication [address] [address] [place] [address] [phone] Social History Tobacco Use Types Packs/Day Years Used Date Smoking Tobacco: Every Day Cigarettes 5 Comments: less than 1/2 pack per day Alcohol Use Standard Drinks/Week Comments No 0 (1 standard drink = 0.6 oz pure alcoho l) Sex Assigned at Date Recorded Not on file documented as of this encounter Miscellaneous Notes Telephone Encounter - Mei Pacheco - 01/08/2009 11:24 AM CDT Last OV: Reason for visit: thoracic and lumbrosacral neuritis RTC instructions: none NO AAP- Last filled: unknown [place] flonase thru 06/2009, unable to authorize jason d because pt has not been prescribed this before. Jesús Pacheco RN Telephone Encounter - Mei Pacheco - 01/08/2009 10:06 AM CDT Message from Yurb[facility]: Jewell Ascencion Lambert would like a refill of the following medications: FLONASE INHA 50 MCG/DOSE NA [Pedro Burt MD] Preferred pharmacy: [facility] Comment: Hey wondering if you could put me on Alegra D also my allergies. and I am having trouble sleeping at night i am getting only a couple hours of sleep because i keep waking up and cant get back to sleep. (it may be because i am scared and worrying about my back problem) Thanks if you need me to come in for this thats fine lt me know keren Corcoran documented in this encounter Plan of Treatment Not on filedocumented as of this encounter Visit Diagnoses Diagnosis Chronic rhinitis - Primary documented in this encounter Care Teams Radio Artist Relationship Specialty Start Date End Date Pedro Burt MD PCP - General 10/19/02 09/12/13 [address] [id number] documented as of this encounter
--- OUTSIDE RECORDS SUMMARY | 2022-04-10 23:06 | XMS_ITS | Encounter Summary ---
:1980 Author Organization [facility] Address [address] [place] [address] Care Team Providers Name Role Phone Pedro Burt MD Primary Care Provider Reason for Visit Reason Onset Date Comments Medication Request 06/25/2008 pt seen today- askin g for rx ensure to be faxed in Encounter Details Date Type Department Care Team Description 06/25/2008 Telephone [facility] Pedro Burt MD Medication Request (pt Clinic [place] [address] [address] seen today- asking for [address] [place] [address] rx ensure to be faxed [facility] [place] in) [phone] (Wo rk) Social History Tobacco Use Types Packs/Day Years Used Date Smoking Tobacco: Every Day Cigarettes 5 Comments: less than 1/2 pack per day Alcohol Use Standard Drinks/Week Comments No 0 (1 standard drink = 0.6 oz pure alcoho l) Sex Assigned at Date Recorded Not on file documented as of this encounter Miscellaneous Notes Telephone Encounter - Mei Pacheco - 06/25/2008 4:49 PM CST Pt calling, was seen in clinic today by CL and discussed getting order for ensure to help her gain wt. Pt asking for CL to fax over rx to [facility]. Thanks. Jesús Pacheco R.N.. R KILN documented in this encounter Plan of Treatment Not on filedocumented as of this encounter Visit Diagnoses Diagnosis Weight loss, severe - Primary Loss of weight documented in this encounter Care Teams Finishing Range Operator Relationship Specialty Start Date End Date Pedro Burt MD PCP - General 10/19/02 09/12/13 [address] [id number] documented as of this encounter
--- OUTSIDE RECORDS SUMMARY | 2022-04-10 23:06 | XMS_ITS | Encounter Summary ---
:1980 Author Organization [place] Address [address] [place] [address] Care Team Providers Name Role Phone Pedro Burt MD Primary Care Provider Reason for Visit Reason Comments Anxiety pt states that she's waking up in the night having anxiety attacks Encounter Details Date Type Department Care Team Description 03/16/2007 Office Visit [facility] Pedro Burt MD GENERALIZED ANXIETY DIS; [address] TOBACCO USE DISORDER [id number] [place] [id number] Social History Tobacco Use Types Packs/Day Years [...] Reading Time Taken Comments Blood Pressure 118/80 03/16/2007 2:00 PM CDT Pulse - - Temperature - - Respiratory Rate - - Oxygen Saturation - - Inhaled Oxygen Concentration - - Weight 50.8 kg (112 lb) 03/16/2007 2:00 PM CDT Height 170.2 cm (5' 7) 03/16/2007 2:00 PM CDT Body Mass Index 17.54 03/16/2007 2:00 PM CDT documented in this encounter Progress Notes Pedro Burt - 03/16/2007 3:07 PM CDT Pt here to c/o anxiety attacks she is having at night, waking her up in fear of her life. SHe deniesany such real strerssors. She would also like to quit smoking. Histories Udpated through 03-16-2007: Past Medical History Diagnosis Date ??? GENERALIZED ANXIETY DIS 02/2007 ??? TOBACCO USE DISORDER 1999 No past surgical history on file. Allergies Allergen Reactions ??? No Known Drug Allergies Current Outpatient Rx Name Route Sig Dispense Refill ??? CYMBALTA 30 MG OR CPEP Oral 1 CAPSULE TWICE DAILY 35 0 ? ? CHANTIX STARTING MONTH NIRMALA 0.5 MG X 11 & 1 MG X 42 OR MISC Oral 0.5mg daily for 3 days, then0.5mg twice daily for 4 days, then 1mg twice daily. Take with food and stop smoking 7 days after treatment begins. 1 0 ??? VICODIN 5-500 MG OR TABS Oral ONE TO TWO TABLETS EVERY 4 TO 6 HOURS NEEDED FOR PAIN 45 0 ??? CONCERTA 27 MG OR TBCR Oral 1 TABLET EVERY MORNING 30 0 ROS: C: NEGATIVE for fever, chills, change in weight,I: NEGATIVE for worrisome rashes, moles or lesions,E/M: NEGATIVE for ear, mouth and throat problems,R: NEGATIVE for significant cough or SOB,CV: NEGATIVEfor chest pain, palpitations or peripheral edema,GI: NEGATIVE for nausea, abdominal pain, heartburn,or change in bowel habits,: NEGATIVE for frequency, dysuria, or hematuria EXAM: LUNGS: CTA PSYCH: euthymic. Worried. No violent ideation. A/P: 1- Anxiety Attcks vs generalized anxiety disorder. After d/w pt regarding risks and benefits as wellas possible side effects, drug interactions and adverse reactions, pt accepts samples of cymbalta per HS orders. 2- Tobacco USe Disorder. After d/w pt regarding risks and benefits as well as possible side effects,drug interactions and adverse reactions, pt accepts prescription for chantix per HS orders. F/u in 3weeks documented in this encounter Nursing Notes 03/16/2007 2:00 PM CDT >> SHALINI MARINELLI 03/16/2007 2:25 pm Patient presents with: Anxiety - pt states that she's waking up in the night having anxiety attacks Initial BP 118/80 Ht 5' 7 (1.70m) Wt 112 lbs (50.8kg) Body mass index is 17.54 kg/(m^2).. BP completed using cuff size regular Shalini Marinelli CMA documented in this encounter Plan of Treatment Not on filedocumented as of this encounter Visit Diagnoses Diagnosis Generalized anxiety disorder Tobacco use disorder documented in this encounter Care Teams Loss Prevention Auditor Relationship Specialty Start Date End Date Pedro Burt MD PCP - General 10/19/02 09/12/13 [address] [id number] documented as of this encounter
--- OUTSIDE RECORDS SUMMARY | 2022-04-10 23:06 | XMS_ITS | Encounter Summary ---
:1980 Author Organization [place] Address [address] [place] [address] Care Team Providers Name Role Phone Pedro Burt MD Primary Care Provider Reason for Referral Specialty Diagnoses / Procedures Referred By Contact Refer red To Contact Pedro Burt MD [address] [place] [address] Referral ID Status Reason Start Date Expiration Date Visits Requ ested Visits Authorized Encounter Details Date Type Department Care Team Description 03/01/2009 Orders Only [facility] Pedro Burt MD DIAGNOSIS NOT YET Clinic [place] [address] [address] DEFINED (Primary Dx) [address] [place], [place] [id number] Social History Tobacco Use Types [...] Name Priority Date/Time Associated Diagnosis Comme nts ZZ CONSULT PT-OT Routine 03/04/2009 DIAGNOSIS NOT YET DEF INED (NON-I.A.M) documented in this encounter Results CONSULT PT-OT (NON-I.A.M) (03/04/2009) Narrative This result has an attachment that is no t available. Pedro Burt MD REFERRAL documented in this encounter Visit Diagnoses Diagnosis DIAGNOSIS NOT YET DEFINED - Primary documented in this encounter Care Teams Professor Of Archaeology Relationship Specialty Start Date End Date Pedro Burt MD PCP - General 10/19/02 09/12/13 [address] [id number] documented as of this encounter
--- OUTSIDE RECORDS SUMMARY | 2022-04-10 23:06 | XMS_ITS | Encounter Summary ---
:1980 Author Organization [place] Address [address] [place] [address] Care Team Providers Name Role Phone Pedro Burt MD Primary Care Provider Reason for Visit Reason Onset Date Comments Formulary Issue 01/10/2009 jason-D not covere d Encounter Details Date Type Department Care Team Description 01/10/2009 Telephone [facility] Pedro Burt MD Formulary Issue [place] [address] [address] (jason-D not covered) [id number] [place] [address] [facility] [place] [address] [phone] (Wo rk) Social History Tobacco Use Types Packs/Day Years Used Date Smoking Tobacco: Every Day Cigarettes 5 Comments: less than 1/2 pack per day Alcohol Use Standard Drinks/Week Comments No 0 (1 standard drink = 0.6 oz pure alcoho l) Sex Assigned at Date Recorded Not on file documented as of this encounter Miscellaneous Notes Telephone Encounter - Cha Adams RN - 01/10/2009 11:36 AM CDT Jason-D not covered on [employer]. Would you like to try an alternative? Chandrika Adams RN documented in this encounter Plan of Treatment Not on filedocumented as of this encounter Visit Diagnoses Diagnosis Rhinitis, allergic seasonal - Primary Allergic rhinitis, cause unspecified documented in this encounter Care Teams Engraver Hand Hard Metals Relationship Specialty Start Date End Date Pedro Burt MD PCP - General 10/19/02 09/12/13 [address] [place] [address] documented as of this encounter
--- OUTSIDE RECORDS SUMMARY | 2022-04-10 23:06 | XMS_ITS | Encounter Summary ---
:1980 Author Organization [place] Address [address] [place] [address] Care Team Providers Name Role Phone Pedro Burt MD Primary Care Provider Reason for Visit Reason Onset Date Comments Refill Request 07/24/2008 VICODIN Encounter Details Date Type Department Care Team Description 07/24/2008 Refill [facility] Pedro Burt MD Refill Request (VICODIN) Clinic [address] [address] [phone] Social History Tobacco Use Types Packs/Day Years Used Date Smoking Tobacco: Every Day Cigarettes 5 Comments: less than 1/2 pack per day Alcohol Use Standard Drinks/Week Comments No 0 (1 standard drink = 0.6 oz pure alcoho l) Sex Assigned at Date Recorded Not on file documented as of this encounter Miscellaneous Notes Telephone Encounter - Lashell Verma - 07/25/2008 3:22 PM CST Rx faxed to [facility]. Lashell Verma CMA SIONIST Telephone Encounter - Lashell Verma - 07/25/2008 1:34 PM CST LMOM for pt to cb. Which pharmacy would she like RX faxed to? Rx is at [facility] Lashell Verma CMA SIONIST Telephone Encounter - Kvng Santacruz 07/24/2008 5:19 PM CST Can wait till primary is in Sakshi Santacruz M.D SIONIST Telephone Encounter - Marce Altamirano - 07/24/2008 10:30 AM CST Last OV: 06/25/08 Reason for visit: THORACIC AND LUMBARSACRAL NEURITIS, anxiety Date last filled: 06/25/08 Carmel Marinelli gone, routed to , please approve, print sign and fax Marce Altamirano RN SIONIST documented in this encounter Plan of Treatment Not on filedocumented as of this encounter Visit Diagnoses Diagnosis Thoracic or lumbosacral neuritis or radi culitis, unspecified documented in this encounter Care Teams Travelift Operator Relationship Specialty Start Date End Date Pedro Burt MD PCP - General 10/19/02 09/12/13 [address] [id number] documented as of this encounter
--- OUTSIDE RECORDS SUMMARY | 2022-04-10 23:06 | XMS_ITS | Encounter Summary ---
:1980 Author Organization [place] Address [address] [place] [address] Care Team Providers Name Role Phone Pedro Burt MD Primary Care Provider Reason for Visit Reason Onset Date Comments Refill Request 09/24/2008 Vicodin Encounter Details Date Type Department Care Team Description 09/24/2008 Refill [facility] Pedro Burt MD Refill Request (Vicodin) Clinic [address] [address] [phone] Social History Tobacco Use Types Packs/Day Years Used Date Smoking Tobacco: Every Day Cigarettes 5 Comments: less than 1/2 pack per day Alcohol Use Standard Drinks/Week Comments No 0 (1 standard drink = 0.6 oz pure alcoho l) Sex Assigned at Date Recorded Not on file documented as of this encounter Miscellaneous Notes Telephone Encounter - Ruthy Echols - 09/24/2008 4:22 PM CDT Rx faxed to pharmacy [facility] RN Telephone Encounter - Kimberly Roldan - 09/24/2008 1:49 PM CDT Last OV:09/05/08 Last fill: 08/19/08 qty: 60 Please hand fax with signature to [facility] [phone] Kimberly Putnam CMA documented in this encounter Plan of Treatment Not on filedocumented as of this encounter Visit Diagnoses Diagnosis Thoracic or lumbosacral neuritis or radi culitis, unspecified documented in this encounter Care Teams Car Repairer Apprentice Relationship Specialty Start Date End Date Pedro Burt MD PCP - General 10/19/02 09/12/13 [address] [address] documented as of this encounter
--- OUTSIDE RECORDS SUMMARY | 2022-04-10 23:06 | XMS_ITS | Encounter Summary ---
:1980 Author Organization [facility] Address [address] [place] [address] Care Team Providers Name Role Phone Pedro Burt MD Primary Care Provider Reason for Visit Reason Onset Date Comments Refill Request 06/06/2008 vicodin Encounter Details Date Type Department Care Team Description 06/06/2008 Refill [facility] Pedro Burt MD Refill Request (vicodin) Clinic [address] [address] [phone] Social History Tobacco Use Types Packs/Day Years Used Date Smoking Tobacco: Every Day Cigarettes 5 Comments: less than 1/2 pack per day Alcohol Use Standard Drinks/Week Comments No 0 (1 standard drink = 0.6 oz pure alcoho l) Sex Assigned at Date Recorded Not on file documented as of this encounter Miscellaneous Notes Telephone Encounter - Marce Altamirano - 06/06/2008 10:57 AM CST Pt notified Marce Altamirano RN R ELECTRIC LOCOMOTIVE Telephone Encounter - Pedro Burt - 06/06/2008 9:36 AM CST Should be seen for future scripting R ELECTRIC LOCOMOTIVE Telephone Encounter - Marce Altamirano - 06/06/2008 8:53 AM CST Last OV: 02/02/08 Reason for visit: chronic rhinitis, folliculitis Date last filled: 04/24/08 Not PSO, routed Marce Altamirano RN R ELECTRIC LOCOMOTIVE documented in this encounter Plan of Treatment Not on filedocumented as of this encounter Visit Diagnoses Diagnosis Thoracic or lumbosacral neuritis or radi culitis, unspecified - Primary documented in this encounter Care Teams Care Provider Relationship Specialty Start Date End Date Pedro Burt MD PCP - General 10/19/02 09/12/13 [address] [id number] documented as of this encounter
--- OUTSIDE RECORDS SUMMARY | 2022-04-10 23:06 | XMS_ITS | Encounter Summary ---
:1980 Author Organization [place] Address [address] [place] [address] Care Team Providers Name Role Phone Pedro Burt MD Primary Care Provider Reason for Visit Reason Onset Date Comments Refill Request 04/25/2008 vicodin Encounter Details Date Type Department Care Team Description 04/25/2008 Refill [facility] Pedro Burt MD Refill Request (vicodin) [address] [place] [phone] Social History Tobacco Use Types Packs/Day Years Used Date Smoking Tobacco: Every Day Cigarettes 5 Comments: less than 1/2 pack per day Alcohol Use Standard Drinks/Week Comments No 0 (1 standard drink = 0.6 oz pure alcoho l) Sex Assigned at Date Recorded Not on file documented as of this encounter Miscellaneous Notes Telephone Encounter - Tiara Yang - 04/25/2008 12:50 PM CST Last OV 02/02/08 for rhinitis Last filled vicodin #45 on 02/15/08 Tiara Navarrete RN RICT ADVISER documented in this encounter Plan of Treatment Not on filedocumented as of this encounter Visit Diagnoses Diagnosis Thoracic or lumbosacral neuritis or radi culitis, unspecified documented in this encounter Care Teams Precinct Commanding Officer Relationship Specialty Start Date End Date Pedro Burt MD PCP - General 10/19/02 09/12/13 [address] [facility] [place] [id number] documented as of this encounter
--- OUTSIDE RECORDS SUMMARY | 2022-04-10 23:06 | XMS_ITS | Encounter Summary ---
:1980 Author Organization [place] Address [address] [place] [address] Care Team Providers Name Role Phone Pedro Burt MD Primary Care Provider Reason for Visit Reason Comments UTI Encounter Details Date Type Department Care Team Description 01/21/2009 Office Visit [facility] Sheri Quevedo PA-C Dysuria (Primary Dx) [facility] MEDICAL [address] [place] [address] [address] [place], [place] [address] (Wo rk) Social History [...] Sign Reading Time Taken Comments Blood Pressure 100/64 01/21/2009 1:27 PM CDT Pulse 84 01/21/2009 1:27 PM CDT Temperature 36.6 ??C (97.9 ??F) 01/21/2009 1:27 PM CDT Respiratory Rate 18 01/21/2009 1:27 PM CDT Oxygen Saturation 99% 01/21/2009 1:27 PM CDT Inhaled Oxygen Concentration - - Weight - - Height - - Body Mass Index - - documented in this encounter Patient Instructions Patient InstructionsSheri Quevedo - 01/21/2009 1:18 PM CDT Images from the original note were not included. Index Illustration Bladder Infection (Cystitis) What is a bladder infection? A bladder infection, also called cystitis, is a type of urinary tract infection. The inner lining ofthe bladder becomes inflamed (red and swollen) and the urine is full of bacteria. How does it occur? Bacteria are the usual cause of infection. Normally there should be no bacteria in the urinary tract. A bladder infection occurs when bacteria travel up the urethra and into the bladder. Women are more likely to have bladder infections than men because their urethra is shorter. The short urethra makes it easier for bacteria from the anus or genital area to reach the bladder. This can happen during such activities as sexual intercourse or wiping after using the toilet. Most infections of the urinary tract are caused this way. Bladder infections often occur in young women who have just become sexually active. Bacteria may grow in the urine if the flow of urine is blocked. For example, in women the pressure from a baby during can cause this problem. In men, an enlarged prostate may cause such a blockage. What are the symptoms? Possible symptoms of a bladder infection include: ?? urinating more often feeling an urgent need to urinate a burning, stinging, or pressure sensation during urination a crampy pain or discomfort in the lower abdomen just above the pubic bone or sometimes in the lowerback a need to urinate more often in the night cloudy urine that smells bad blood in the urine leaking of urine fever and occasionally chills. How is it diagnosed? Your healthcare provider will examine you and may ask for a urine sample. You may also have blood tests. More tests may be done if you have had several infections. Also, when men have a bladder infection usually more tests are done because cystitis is less common in men. The tests will check for possible causes of the infection. How is it treated? Bladder infection is a common problem that is usually easily treated. Your healthcare provider will prescribe an antibiotic to kill bacteria and prevent the spread of infection to your kidneys. If your case is more serious with fever, pain, or vomiting, you may have to spend a day or two in the hospital and take your antibiotics by vein (IV). Your healthcare provider may also prescribe Pyridium, a medicine that helps reduce the pain and spasm of the bladder during the first couple of days. Pyridium will turn your urine orange and may stain your clothing. In some cases your healthcare provider may ask you to have a follow-up visit after you have taken all of the antibiotic so another sample of your urine can be tested. This is to make sure the infectionis gone. How long will the effects last? Prompt treatment of a bladder infection with antibiotics usually relieves the symptoms in 24 to 48 hours. If your case is more serious, you may take several days to feel better. How can I take care of myself? ?? Take all of the antibiotic that your healthcare provider prescribes, even when you feel better. Do not take medicine left over from previous prescriptions. If your provider prescribed Pyridium, use it to feel better while you are waiting for the antibioticto work. Drink more fluids, especially water, to help flush the bacteria from your system. Follow your healthcare provider's directions for a follow-up urine test. Your provider may want to test your urine soon after you finish taking the antibiotic. Follow your healthcare provider's recommendation for regular urine testing to check for recurrence, if necessary. If you have a fever: ?? Rest in bed if your temperature is over 100??F (38??C). Ask your healthcare provider if you should take aspirin or acetaminophen to control your fever. Anyone under the age of 18 with a fever should not take aspirin because of an increased risk of a severe illness called Chapin's syndrome. Keep a record of your daily temperature. Call your healthcare provider if you are not getting better after you have taken the antibiotic for 48 hours. Call sooner if you are getting worse. What can I do to help prevent bladder infection? To help prevent a bladder infection from recurring, urinate often during the day and empty your bladder completely each time. In addition, women who tend to have bladder infections often should follow these guidelines: ?? Talk to your healthcare provider. You may need extra tests to find out why you often have bladderinfections. Your provider may prescribe medicine that helps prevent infections. Drink plenty of water. Do not delay urinating when you feel the need to urinate. Keep the vaginal area clean. Wipe from front to back after using the toilet. Be sure to gently wash the genital area each time you bathe or shower. However, use soap only on the outside of your vagina.The chemicals in soap may cause additional irritation. Urinate after intercourse. Never combine anal and vaginal intercourse. Wear cotton underwear, which allows better air circulation than nylon. Wear pantyhose with cotton crotches. Avoid tight clothes in the genital area, such as control-top pantyhose and tight jeans. Do not wear a wet bathing suit for long periods of time. During , tell your healthcare provider if you have a history of urinary tract problems. Your provider may order tests for bacteria in your urine before you have symptoms of infection. If you have stopped having your periods because of menopause and are not taking estrogen, your provider might suggest a vaginal cream. Sometimes this cream helps prevent bladder infections after menopause. Men should always wash the penis during baths or showers. If you are not circumcised, gently pull back the foreskin and wash the tip of the penis when you bathe. Developed by [employer] Published by [employer]. Last modified: 2006-08-23 Last reviewed: 2006-09-21 This content is reviewed periodically and is subject to change as new health information becomes available. The information is intended to inform and educate and is not a replacement for medical evaluation, advice, diagnosis or treatment by a healthcare professional. Adult Health Advisor 2007.1 Index Adult Health Advisor 2007.1 Credits ?? 2008 [facility] and/or one of its affiliates. All Rights Reserved. documented in this encounter Progress Notes Sheri Quevedo - 01/21/2009 1:13 PM CDT SUBJECTIVE: Jewell Lambert is a 28 year old female who presents today for a possible UTI. Symptoms of dysuria, urgency, frequency, suprapubic pain and pressure and back pain have been going on for 2day(s). Hematuria no. gradual onset and worseningand moderate. There is no history of fever, chills, nausea or vomiting. No history of vaginal or penile discharge. This patient does have a history of urinary tract infections. Patient denies long duration, rigors, temperature > 101 degrees F. and Vomiting, significant nausea or diarrhea or vaginal discharge, vaginal odor and vaginal itching. Taken old RX CIPRO w/o relief x 2 days. CIPRO does not work for sister also. Past Medical History Diagnosis Date ??? GENERALIZED ANXIETY DIS 02/2007 ??? TOBACCO USE DISORDER 1999 Current outpatient prescriptions Medication Sig ??? CLARITIN-D 24 HOUR# 10-240 MG OR TB24 1 TABLET DAILY ??? LISETTE-D 24 HOUR# 180-240 MG OR TB24 TAKE ONE DAILY ??? FLONASE INHA 50 MCG/DOSE NA INHALE 2 SPRAYS IN EACH NOSTRIL ONCE DAILY ??? VICODIN ES 7.5-750 MG OR TABS ONE TABLET EVERY 6 HOURS NEEDED FOR PAIN ??? VICODIN 5-500 MG OR TABS ONE TO TWO TABLETS EVERY 4 TO 6 HOURS NEEDED FOR PAIN ??? DIFLUCAN 150 MG OR TABS ONE TABLET FOR ONE DOSE ??? CYMBALTA 60 MG OR CPEP 1 CAPSULE DAILY ??? NEURONTIN 300 MG OR CAPS 1 tab PO QHS ??? ENSURE OR LIQD 1 can PO TID with meals ??? TAZORAC 0.1 % EX CREA aplpy hs ??? MINOCYCLINE HCL 100 MG OR TABS [...] CONSTITUTIONAL:NEGATIVE for fever, chills, change in weight ENT/MOUTH: NEGATIVE for ear, mouth and throat problems RESP:NEGATIVE for significant cough or SOB CV: NEGATIVE for chest pain, palpitations or peripheral edema GI: NEGATIVE for nausea, abdominal pain, heartburn, or change in bowel habits : dysuria, frequency, urgency and urinary tract infection NEURO: NEGATIVE for weakness, dizziness or paresthesias OBJECTIVE: BP 100/64 Pulse 84 Temp (Src) 97.9 ??F (36.6 ??C) (Temporal) Resp 18 SpO2 99% LMP IUD GENERAL APPEARANCE: healthy, alert and no distress RESP: lungs clear to auscultation - no rales, rhonchi or wheezes CV: regular rates and rhythm, normal S1 S2, no murmur noted ABDOMEN: soft, normal bowel sounds, mild L CVA tenderness GU_female: deferred, moderate suprapubic tenderness SKIN: no suspicious lesions or rashes ASSESSMENT: Encounter Diagnoses Code Name Primary? Qualifier ??? 788.1 Dysuria Yes Plan: BACTRIM DS 800-160 MG OR TABS, DIFLUCAN 150 MG OR TABS PLAN: Drink plenty of fluids. Prevention and treatment of UTI's discussed. Signs and symptoms of pyelonephritis mentioned. Stress fluids/RX. If with another episode advise FU with PCP for cx and further evaluations. FU with PCP in 2-3 days if not improved or sooner if worsen. Sheri Quevedo PA-C documented in this encounter Plan of Treatment Not on filedocumented as of this encounter Visit Diagnoses Diagnosis Dysuria - Primary documented in this encounter Care Teams Heat Treat Inspector Relationship Specialty Start Date End Date Pedro Burt MD PCP - General 10/19/02 09/12/13 [address] [id number] documented as of this encounter
--- OUTSIDE RECORDS SUMMARY | 2022-04-10 23:07 | XMS_ITS | Encounter Summary ---
:1980 Author Organization [facility] Address [address] [place] [address] Care Team Providers Name Role Phone Pedro Burt MD Primary Care Provider Reason for Visit Reason Comments Care Encounter Details Date Type Department Care Team Description 03/05/2003 Office Visit [facility] Shravan Park SUPERVIS N [address] [facility] MD Stephen PREG (Primary Dx) [place] [address] [place] [address] Social History Tobacco Use Types [...] Sign Reading Time Taken Comments Blood Pressure 120/70 03/05/2003 3:15 PM CDT Pulse - - Temperature - - Respiratory Rate - - Oxygen Saturation - - Inhaled Oxygen Concentration - - Weight 63.3 kg (139 lb 8 oz) 03/05/2003 3:15 PM CDT Height - - Body Mass Index 22.52 10/30/2002 2:00 PM CDT documented in this encounter Progress Notes Shravan Park - 01/30/2010 6:19 PM CDT US for follow-up size. Notes decreased movement , at times. NST today eqivocal, BPP today, kick count daily. documented in this encounter Nursing Notes 03/05/2003 3:15 PM CDT >> EH ALTAMIRANO 03/05/2003 3:58 pm nurse assisted visit Eh Altamirano RN. >> EH ALTAMIRANO 03/05/2003 3:27 pm Decreased movement in the last week. Eh Altamirano RN documented in this encounter Plan of Treatment Not on filedocumented as of this encounter Procedures Procedure Name Priority Date/Time Associated Diagnosis Comme nts HC INITIAL Routine 03/05/2003 3:24 PM CDT Supervis Francine su 1st NON-STRESS TEST, Preg SINGLE PREG documented in this encounter Visit Diagnoses Diagnosis Supervision of normal first - Primary documented in this encounter Care Teams Business Insight And Analytics Manager Relationship Specialty Start Date End Date Pedro Burt MD PCP - General 10/19/02 09/12/13 [address] [id number] documented as of this encounter
--- OUTSIDE RECORDS SUMMARY | 2022-04-10 23:07 | XMS_ITS | Encounter Summary ---
:1980 Author Organization [place] Address [address] [place] [address] Care Team Providers Name Role Phone Pedro Burt MD Primary Care Provider Reason for Visit Reason Comments Bj Encounter Details Date Type Department Care Team Description 07/22/2004 Office Visit [facility] Anthony Del Castillo DEF ICIT W HYPERACT (Primary Dx); [facility] [place] MAU Rubalcava ERRONEOUS ENCOUNTER--DISREGARD [address] [place] [phone] [phone] Social History Tobacco Use Types Packs/Day Years [...] Reading Time Taken Comments Blood Pressure 120/70 07/22/2004 11:45 AM HEATING EQUIPMENT INSTALLER Pulse - - Temperature - - Respiratory Rate - - Oxygen Saturation - - Inhaled Oxygen Concentration - - Weight 52.6 kg (116 lb) 07/22/2004 11:45 AM HEATING EQUIPMENT INSTALLER Height - - Body Mass Index 18.72 04/30/2003 4:00 PM HEATING EQUIPMENT INSTALLER documented in this encounter Patient Instructions Patient Sadeljfbpohd11/01/2005 11:45 AM HEATING EQUIPMENT INSTALLER You have Adult Onset Attention Deficit Disorder Here's how you can help beat this: #1 Concerta 18 mg, one pill orally daily #2 Return to clinic to see Dr. Glen Cooper in 4 weeks. ING EQUIPMENT INSTALLER documented in this encounter Progress Notes Anthony Bailey - 12/30/2004 11:50 AM CDT This encounter was opened in error. Please disregard. documented in this encounter Nursing Notes 07/22/2004 11:45 AM CST >> INDIA CAMPOVERDE 07/22/2004 11:56 am Jewell Lambert presents for recheck on ADD. Pt was diagnosed when she was in high school and feels it is worsening. Pt would like to control it. Not currently on medication. Initial BP 120/70 Wt 116 lbs (52.6kg) LMP Estimated Body Mass Index is 18.73 kg/(m^2)as calculated from: Height of 5' 6 (1.676m) as of 04/30/03 Weight of 116 lbs (52.617 kg) as of this encounter . BP completed using cuff size: regular. India Campoverde CMA documented in this encounter Plan of Treatment Not on filedocumented as of this encounter Visit Diagnoses Diagnosis Attention deficit disorder with hyperact ivity(314.01) - Primary Attention deficit disorder with hyperact ivity ERRONEOUS ENCOUNTER--DISREGARD documented in this encounter Care Teams Wood Die Maker Relationship Specialty Start Date End Date Pedro Burt MD PCP - General 10/19/02 09/12/13 [address] [id number] documented as of this encounter
--- OUTSIDE RECORDS SUMMARY | 2022-04-10 23:07 | XMS_ITS | Encounter Summary ---
:1980 Author Organization [place] Address [address] [place] [address] Care Team Providers Name Role Phone Pedro Burt MD Primary Care Provider Reason for Referral - Closed Specialty Diagnoses / Procedures Referred By Contact Refer red To Contact Diagnoses Abdominal pain, generalized Pedro Burt MD [address] [place] [address] Referral ID Status Reason Start Date Expiration Date Visits Requ ested Visits Authorized [id number] Closed 02/29/2004 05/23/2011 1 1 Reason for Visit Reason Onset Date Comments CT Results 02/14/2004 ultrasound results Encounter Details Date Type Department Care Team Description 02/14/2004 Telephone [facility] Pedro Burt MD CT Results (ultrasound Clinic [place] [address] results) [address] [facility] [place] [address] [phone] (Wo rk) Social History Tobacco Use Types Packs/Day Years Used Date Smoking Tobacco: Every Day Cigarettes 5 Comments: less than 1/2 pack per day Alcohol Use Standard Drinks/Week Comments No 0 (1 standard drink = 0.6 oz pure alcoho l) Sex Assigned at Date Recorded Not on file documented as of this encounter Miscellaneous Notes Telephone Encounter - 02/14/2004 4:24 PM CDT Addended by: FANTA CASTANEDA on: 03/19/2004 10:38:14 AM Comment: Per [facility] they have been unable to contact the patient to schedule her appointment -Fanta E-Referrals >> CHI Gan Feb 29, 2004 8:36 AM Orders created and faxed to [facility], they will call patient to schedule. (Chi in referrals) >> GADIEL IYER [facility] Feb 28, 2004 6:31 PM Pt. agreed to have this done again, Chi or Fanta does she need another referral, please let her know. Gadiel Iyer RN. >> JEANINE FREEDMAN [facility] Feb 28, 2004 12:41 PM LM with pt's mother for her to call back for Dr. Burt's message. Jeanine Freedman RN >> GUILLERMINA KELSEY [facility] Feb 19, 2004 5:22 PM LMOM to call gold. Guillermina Kelsey RN >> PEDRO BURT [facility] Feb 18, 2004 2:59 PM sure, it is the best possible test >> JEANINE FREEDMAN [facility] Feb 18, 2004 2:42 PM Spoke with the pt. who stated she did not actually have the endoscopy done because she pulled the tube out lack of cooperation. She said she would be willing to try the endoscopy again if you agree. Jeanine Freedman RN >> JEANINE FREEDMAN [facility] Feb 18, 2004 1:24 PM LM with male at home number for pt. to call back. Jeanine Freedman RN >> DANG ALTAMIRANO [facility] Feb 14, 2004 4:48 PM NA Dang Altamirano RN >> PEDRO BURT [facility] Feb 14, 2004 4:32 PM please have pt d/w GI, as since she had upper GI endoscopy, they should have seen an ulcer if therewas one. The only other condition would be a barium swallow, and I don't think it would be any better than actually having looked by endoscopy *(which was also negative) >> JEANINE FREEDMAN [facility] Feb 14, 2004 4:28 PM Spoke to pt. to give her results of abd. ultrasound as normal. Pt. states that the ultrasound was suppose to be looking at/for an ulcer, pt. states the [employer] tech said they can't see ulcers with this test. Pt. is wondering if needs to have another test done or be referred to GI as her stomach is still hurting even with the Protonix. Please advise. Jeanine Freedman RN documented in this encounter Plan of Treatment Not on filedocumented as of this encounter Visit Diagnoses Diagnosis Abdominal pain, generalized - Primary documented in this encounter Care Teams Mock Up Maker Relationship Specialty Start Date End Date Pedro Burt MD PCP - General 10/19/02 09/12/13 [address] [id number] documented as of this encounter
--- OUTSIDE RECORDS SUMMARY | 2022-04-10 23:07 | XMS_ITS | Encounter Summary ---
:1980 Author Organization [facility] Address [address] [place] [address] Care Team Providers Name Role Phone Pedro Burt MD Primary Care Provider Reason for Visit Reason Comments Chest Pain L side x 2 months Encounter Details Date Type Department Care Team Description 10/10/2003 Office Visit [facility] Pedro Burt MD INITIATE CONTRACEPT NEC; Clinic [place] [address] ESOPHAGEAL REFLUX [address] [place] [address] Social History Tobacco Use Types [...] Sign Reading Time Taken Comments Blood Pressure 104/74 10/10/2003 10:30 AM CDT Pulse - - Temperature 36.3 ??C (97.3 ??F) 10/10/2003 10:30 AM CDT Respiratory Rate - - Oxygen Saturation - - Inhaled Oxygen Concentration - - Weight - - Height - - Body Mass Index - - documented in this encounter Progress Notes 10/10/2003 10:30 AM CDT SUBJECTIVE: Jewell Lambert is a 23 year old female who complains of atypical chest discomfort after e ating. SHehas no dyspnea. She is 6 months ([place], , had normal pap, b reast feduntil 2 months ago, had 27 lb weight gain). She has been experiencing fullness a fter meals, heartburn, symptoms primarily relate to meals, and lying down after meals for many minute s, intermittent over time. ROS: patient denies dysphagia or black stools. Social history: no or minim al alcohol, nonsmoker, no or mild caffeine use, no ASA or NSAID's. Pt also wishes to restart cont raception (using only condoms now) as she stopped breast feeding 2 months ago. Current prescriptions : WELLBUTRIN SR 150 MG OR TBCR 1 TABLET TWICE DAILY OBJECTIVE: Appears well, alert and oriented x 3 , pleasant cooperative in NAD. Anicteric. Vitals as noted. Neckfree of lymphadenopathy or mass. Abdo men - abdomen is soft without significant tenderness, masses, organomegaly or guarding. ASSESSMENT/P LEE: 1- GERD manifesting asatypical left sided (under left breast) chest discomfort. The pathophysiol ogyof reflux is discussed. Anti-reflux measures such as raising the head of the bed, avoiding tight clothing or belts, avoiding eating late at night and not lying down shortly after mealtime and achie ving weight loss are discussed. Avoid ASA, NSAID's, caffeine, peppermints, alcohol and tobacco. OTC H 2 blockers and/or antacids are often very helpful for PRN use. However, for chronic or daily symptoms ,prescription strength H2 blockers or a trial of PPI's should be used. I've explained that although PPI's are extremely effective, many insurance companies may not cover the routine use of these drugs superintendent terminal due to expense. Further recommendations to her: samples of nexium are given today, medicati on side effects fully discussed, labs studies are not necessary, UGI series not indicated unless a therapeutic trial is unsuccessful. She should alert me if there are persistent symptoms, dysphagia, marvel ght loss or GI bleeding. FUV is scheduled. 2- COntraception COunselling and Mgmt. After d/w pt regard ing risks and benefits as well as possible side effects, drug interactions and adverse reactions, pt accepts samples (3 months) of tripahsil 28. If agreeable, she will let me know and I'll script it for 9 more months so that she f/u with me for PAP. documented in this encounter Nursing Notes 10/10/2003 10:30 AM CDT >> INDIA HUSTON 10/10/2003 10:42 am Pt c/o chest pain on the L side of her chest x 2 months. BP cuff size: large India Huston MA documented in this encounter Plan of Treatment Not on filedocumented as of this encounter Visit Diagnoses Diagnosis General counseling for initiation of oth er contraceptive measures Esophageal reflux documented in this encounter Care Teams Afternoon Babysitter Relationship Specialty Start Date End Date Pedro Burt MD PCP - General 10/19/02 09/12/13 [address] [id number] documented as of this encounter
--- OUTSIDE RECORDS SUMMARY | 2022-04-10 23:07 | XMS_ITS | Encounter Summary ---
:1980 Author Organization [place] Address [address] [place] [address] Care Team Providers Name Role Phone Pedro Burt MD Primary Care Provider Reason for Visit Reason Comments Care PNV Encounter Details Date Type Department Care Team Description 04/12/2003 Office Visit [facility] Shravan Park SUPERVIS N [address] Clinic Maik Mitchell MD PREG (Martha Koch) [place] [address] [address] Social History Tobacco Use Types Packs/Day Years Used Date Smoking Tobacco: Every Day Cigarettes 5 Comments: less than 1/2 pack per day Alcohol Use Standard Drinks/Week Comments No 0 (1 standard drink = 0.6 oz pure alcoho l) Sex Assigned at Date Recorded Not on file documented as of this encounter Last Filed Vital Signs Vital Sign Reading Time Taken Comments Blood Pressure 122/70 04/12/2003 8:30 AM ACROBATIC RIGGER Pulse - - Temperature - - Respiratory Rate - - Oxygen Saturation - - Inhaled Oxygen Concentration - - Weight 64.9 kg (143 lb) 04/12/2003 8:30 AM ACROBATIC RIGGER Height - - Body Mass Index 23.08 10/30/2002 2:00 PM CDT documented in this encounter Progress Notes Shravan Park - 01/30/2010 6:19 PM CDT Doing well. Induction scheduled. BATIC RIGGER documented in this encounter Nursing Notes 04/12/2003 8:30 AM CST >> DEXTER ROBERSON 04/12/2003 8:41 am pt here for PNV, pt is 39 weeks , c/o cotractions last night, no contractions today T.Roberson RMA documented in this encounter Plan of Treatment Not on filedocumented as of this encounter Visit Diagnoses Diagnosis Supervision of normal first - Primary documented in this encounter Care Teams Artificial Insemination Technician Relationship Specialty Start Date End Date Pedro Burt MD PCP - General 10/19/02 09/12/13 [address] [id number] documented as of this encounter
--- OUTSIDE RECORDS SUMMARY | 2022-04-10 23:07 | XMS_ITS | Encounter Summary ---
:1980 Author Organization [place] Address [address] [place] [address] Care Team Providers Name Role Phone Pedro Burt MD Primary Care Provider Encounter Details Date Type Department Care Team Description 04/02/[address] [facility] Shravan Park DIAGNOSIS NOT YET Women's Clinic MD Stephen DEFINED (Prim darryl Dx) [address] [place] [phone] Social History Tobacco Use Types Packs/Day Years [...] Name Priority Date/Time Associated Diagnosis Comme nts [facility] [place] Routine 04/02/2003 DIAGNOSIS NOT Y ET DEFINED documented in this encounter Results [facility] [place] (04/02/2003) Specimen (Source) Anatomical Location Collection Method / Collectio n Time Received Time / Laterality Volume 04/02/2003 Narrative This result has an attachment that is no t available. Shravan Park MD LABORATORY documented in this encounter Visit Diagnoses Diagnosis DIAGNOSIS NOT YET DEFINED - Primary documented in this encounter Care Teams Assembler Adjuster Relationship Specialty Start Date End Date Pedro Burt MD PCP - General 10/19/02 09/12/13 [address] [place] [address] documented as of this encounter
--- OUTSIDE RECORDS SUMMARY | 2022-04-10 23:07 | XMS_ITS | Encounter Summary ---
:1980 Author Organization [address] [place] [address] Care Team Providers Name Role Phone Pedro Burt MD Primary Care Provider Encounter Details Date Type Department Care Team Description 09/15/2004 Orders Only [facility] [place] DI AGNOSIS NOT YET Clinic Gabi Delgado MD DEFINED (Primary Dx) [address] [place], [place] SERVICE [address] [address] [facility] [phone] [address] [place], [place] [address] (Wo rk) Social History Tobacco [...] Name Priority Date/Time Associated Diagnosis Comme nts ABSTRACT [facility] REPORT Routine 09/15/2004 DIAGNOSIS NOT YET DEFINED documented in this encounter Results ABSTRACT [facility] REPORT (09/15/2004) Specimen (Source) Anatomical Location Collection Method / Collectio n Time Received Time / Laterality Volume 09/15/2004 Narrative This result has an attachment that is no t available. Glen Cooper MD LABORATORY Performing Organization Address City/State/ZIP Code Phon e Number [place] documented in this encounter Visit Diagnoses Diagnosis DIAGNOSIS NOT YET DEFINED - Primary documented in this encounter Care Teams Telemarketing Fundraiser Relationship Specialty Start Date End Date Pedro Burt MD PCP - General 10/19/02 09/12/13 [address] [id number] documented as of this encounter
--- OUTSIDE RECORDS SUMMARY | 2022-04-10 23:07 | XMS_ITS | Encounter Summary ---
:1980 Author Organization [facility] Address [address] [place] [address] Care Team Providers Name Role Phone Pedro Burt MD Primary Care Provider Encounter Details Date Type Department Care Team Description 03/16/2003 Results Only [facility] ParkSh[facility] MD [address] [place] [address] Social History Tobacco Use [...] Procedure Name Priority Date/Time Associated Diagnosis Comme [facility] OB LIMITED, 1 Routine 03/16/2003 11:32 AM R esults for this OR MORE FETUSES CDT procedure ar e in the results section. documented in this encounter Results SONO LTD IN DELIV ROOM (03/16/2003 11:32 AM CDT) [facility] Method Time Signature Radiology OB WORKSHEET/SECOND AND THIRD TRIMESTER: Result HISTORY: P: 0 REASON FOR EXAM: Check amniotic fluid. PRESENTATION: Cephalic presentation and longitudinal positio n. PLACENTA: The placenta is anterior/fundal with no placenta p revia. CARDIAC ACTIVITY: 167 beats per minute and regular. JUANITA: Normal 13.1 cm 45% for 35 wks. MEASUREMENTS: Biparietal diameter: 87.1 mm= 35 wks, 1 days Head circumference: 313.3 mm= 35 wks, 1 days Abdominal circumference:305.8 mm= 34 wks, 4 days Femur Length: 69.2 mm= 35 wks, 4 days GESTATIONAL AGE: The composite sonographic age is 35 wks, 1 day. EDC: 04/19/03. Gestational age by LMP is 35 wks, 1 day. ESTIMATED WEIGHT: 2536 grams +- 421 grams. IMPRESSION: Unremarkable appearance, single live intrauterine . END OF IMPRESSION Anatomical Region Laterality Modality Other Specimen (Source) Anatomical Collection Method Collection Time Re ceived Time Location / / Volume Laterality 03/16/2003 11:32 AM CDT Shravan Park MD SPECIAL IMAGING STUDIES documented in this encounter Visit Diagnoses Not on filedocumented in this encounter Care Teams Plumbing Assembler Relationship Specialty Start Date End Date Pedro Burt MD PCP - General 10/19/02 09/12/13 [address] [id number] documented as of this encounter
--- OUTSIDE RECORDS SUMMARY | 2022-04-10 23:07 | XMS_ITS | Encounter Summary ---
:1980 Author Organization [facility] Address [address] [place] [address] Care Team Providers Name Role Phone Pedro Burt MD Primary Care Provider Reason for Visit Reason Comments Care Encounter Details Date Type Department Care Team Description 03/19/2003 Office Visit [facility] Shravan Park SUPERVIS O THER NORMAL [facility] MD Stephen PREG (Primary Dx) [place] [address] [place] [address] Social History Tobacco Use Types [...] Sign Reading Time Taken Comments Blood Pressure 110/64 03/19/2003 3:45 PM ROVING TECHNICIAN Pulse - - Temperature - - Respiratory Rate - - Oxygen Saturation - - Inhaled Oxygen Concentration - - Weight 64.4 kg (142 lb) 03/19/2003 3:45 PM ROVING TECHNICIAN Height - - Body Mass Index 22.92 10/30/2002 2:00 PM CDT documented in this encounter Progress Notes Sh[place]an Park - 01/30/2010 6:19 PM CDT Group B strep done. NG TECHNICIAN documented in this encounter Plan of Treatment Not on filedocumented as of this encounter Procedures Procedure Name Priority Date/Time Associated Diagnosis Comme nts HCL CULTURE, GROUP Routine 03/19/2003 4:49 PM Supervis Other R esults for this B STREP ROVING TECHNICIAN Normal Preg procedure are i n the results section. documented in this encounter Results GROUP B STREP VAG/RECTAL (03/19/2003 4:49 PM ROVING TECHNICIAN) Component Value Ref Test Analysis [facility] Range Method Time Signature Specimen [place] [facility] LAB Culture Micro No beta [place] hemolytic [facility] Streptococcus [facility] Group B isolated Report status FINAL [id number] [facility] LAB Specimen Anatomical Collection Method Collection Time Receive d Time (Source) Location / / Volume Laterality 03/19/2003 4:49 PM 3 4:54 ROVING TECHNICIAN PM ROVING TECHNICIAN Shravan Park MD LABORATORY Performing Organization Address City/State/ZIP Code Phon e Number M [facility] [address] [phone] [facility] documented in this encounter Visit Diagnoses Diagnosis Supervision of other normal - Primary documented in this encounter Care Teams Warm In Relationship Specialty Start Date End Date Pedro Burt MD PCP - General 10/19/02 09/12/13 [address] [id number] documented as of this encounter
--- OUTSIDE RECORDS SUMMARY | 2022-04-10 23:07 | XMS_ITS | Encounter Summary ---
:1980 Author Organization [place] Address [address] [place] [address] Care Team Providers Name Role Phone Pedro Burt MD Primary Care Provider Encounter Details Date Type Department Care Team Description 03/06/2003 Results Only [facility] Shravan Park SUPERVIS O THER NORMAL Clinic [place] MD Stephen PREG (Martha evans Dx) [place] [address] [address] Social History Tobacco Use Types [...] Procedure Name Priority Date/Time Associated Comments Diagnosis BIOPHYSICAL Routine 03/06/2003 9:22 AM Supervis Other Re sults for this PROFILE; W/O CDT Normal Preg procedure are i n NON-STRESS TESTING the resul ts section. documented in this encounter Results BIOPHYSICAL PROFILE; W/O NON-STRESS TESTING (03/06/2003 9:22 AM CDT) Component Value Ref Test Analysis Performed At [facility] Range Method Time Signature Radiology OB WORKSHEET/SECOND AND THIRD TRIMESTER: Result REASON FOR EXAM: Decreased movement. PREVIOUS ULTRASOUND: Not available. PRESENTATION: Cephalic presentation and longitudinal positio n. PLACENTA: The placenta is posterior with no placenta previa. CARDIAC ACTIVITY: 134 beats per minute and regular. JUANITA: Oligohydramnios 7.6 cm <5% for 33 wks. BIOPHYSICAL PROFILE: Breathing Movements: Score: 2 Gross Body Movements: Score: 2 Tone: Score: 2 JUANITA([id number]) 7.6 cm Score: 2 Total: 8/8 (borderline oligohydramnios) IMPRESSION: Live headley fetus in a cephalic presentation. Normal hear t rate. Borderline oligohydramnios. Biophysical score is 12/29. END OF IMPRESSION Anatomical Region Laterality Modality Other Specimen (Source) Anatomical Collection Method Collection Time Re ceived Time Location / / Volume Laterality 03/06/2003 9:22 AM CDT Shravan Park MD SPECIAL IMAGING STUDIES documented in this encounter Visit Diagnoses Diagnosis Supervision of other normal - Primary documented in this encounter Care Teams Financial Aid Relationship Specialty Start Date End Date Pedro Burt MD PCP - General 10/19/02 09/12/13 [address] [id number] documented as of this encounter
--- OUTSIDE RECORDS SUMMARY | 2022-04-10 23:07 | XMS_ITS | Encounter Summary ---
:1980 Author Organization [place] Address [address] [place] [address] Care Team Providers Name Role Phone Pedro Burt MD Primary Care Provider Reason for Visit Reason Comments Refill Request Encounter Details Date Type Department Care Team Description 08/20/2003 Refill [facility] Marnie Muñoz, Refill Request Kristine MARTINS [address] [place] [address] [place], [place] [phone] (Wo rk) Social History Tobacco Use Types Packs/Day Years Used Date Smoking Tobacco: Every Day Cigarettes 5 Comments: less than 1/2 pack per day Alcohol Use Standard Drinks/Week Comments No 0 (1 standard drink = 0.6 oz pure alcoho l) Sex Assigned at Date Recorded Not on file documented as of this encounter Miscellaneous Notes Telephone Encounter - 08/20/2003 11:59 PM UTILIZATION MANAGEMENT UM NURSE >> ZARIA ARROYO Mon Aug 20, 2003 12:16 PM >> CALL RECEIVED. Contact: Pt.'s last visit was 03/14/03 so I will refill for 1 month and pt. needs to make appt. with Dr. Muñoz for next refill. Pt. advised. documented in this encounter Plan of Treatment Not on filedocumented as of this encounter Visit Diagnoses Not on filedocumented in this encounter Care Teams Nurse Ldr Relationship Specialty Start Date End Date Pedro Burt MD PCP - General 10/19/02 09/12/13 [address] [facility] [place] [address] documented as of this encounter
--- OUTSIDE RECORDS SUMMARY | 2022-04-10 23:07 | XMS_ITS | Encounter Summary ---
:1980 Author Organization [place] Address [address] [place] [address] Care Team Providers Name Role Phone Oliverio Burt MD Primary Care Provider Reason for Visit Reason Comments Patient Inquiry CL ritalin rx, nexium not he lping Encounter Details Date Type Department Care Team Description 11/13/2003 Telephone [facility] Oliverio Burt MD Patient Inquiry ([facility] [place] [address] ritalin rx, nexium not [address] [facility] [place] [id number] (Wo rk) Social History Tobacco Use Types Packs/Day Years Used Date Smoking Tobacco: Every Day Cigarettes 5 Comments: less than 1/2 pack per day Alcohol Use Standard Drinks/Week Comments No 0 (1 standard drink = 0.6 oz pure alcoho l) Sex Assigned at Date Recorded Not on file documented as of this encounter Miscellaneous Notes Telephone Encounter - 11/13/2003 4:39 PM CDT >> OLIVERIO BURT WedNov 13, 2003 6:37 PM I have never prescribed ritalin for her, and will not do so, even as a primary provider. I don't think in my one visit with her did she reveal a use of ritalin.She needs to f/u with the originating provider. Her chest pain is not likely cardiac, but if interested, we can refer her to cardiology for s stress test. If negative, we woulds then send to GI for UGI Endoscopy. If that is negative, we would consider ther possible diagnoses (such as anxiety, side effects of drugs, etc). >> KAJAL Leon Nov 13, 2003 4:55 PM >> CALL RECEIVED. Contact: last visit 10/10/03. Kajal Kim RN >> KAJAL Leon Nov 13, 2003 4:38 PM Staff Message copied by KAJAL KIM on 11/13/2003 at 4:38 PM ------ Message from: MARISABEL MAZARIEGOS Created: 11/13/2003 at 4:33 PM Regarding: Li-rx rf ritalin--call when ready----[phone]--sec--nexium is not helping chest pain documented in this encounter Plan of Treatment Not on filedocumented as of this encounter Visit Diagnoses Not on filedocumented in this encounter Care Teams Production Control Coordinator Relationship Specialty Start Date End Date Oliverio Burt MD PCP - General 10/19/02 09/12/13 [address] [id number] documented as of this encounter
--- OUTSIDE RECORDS SUMMARY | 2022-04-10 23:07 | XMS_ITS | Encounter Summary ---
:1980 Author Organization [place] Address [address] [place] [address] Care Team Providers Name Role Phone Pedro Burt MD Primary Care Provider Reason for Visit Reason Comments Referral for ultrasound Encounter Details Date Type Department Care Team Description 02/07/[address] [facility] Pedro Burt MD ABDOMINAL PAIN EPIGASTRIC (Primary Dx); [facility] [place] [address] ESOPHAGEAL REFLUX [address] [place] [id number] Social History Tobacco Use Types Packs/Day Years [...] Reading Time Taken Comments Blood Pressure 110/64 02/07/2004 2:18 PM CDT Pulse - - Temperature - - Respiratory Rate - - Oxygen Saturation - - Inhaled Oxygen Concentration - - Weight - - Height - - Body Mass Index - - documented in this encounter Progress Notes 02/07/2004 2:15 PM CDT (S) Jewell Lambert is a 23 year old female with complaint of gastrointestinal symptoms of mid epigastric pain. She was to have upper GI endoscopy with Dr. Leona Funes of [facility] when she was too uncomfortable with the tube. Apparently, they told her to return to [facility]D to get abdominal u/s. No blood in stool. (O) Physical exam reveals the patient appears well. Hydration status: well hydrated. Abdomen: abdomen is soft without significant tenderness, masses, organomegaly or guarding, no rebound tenderness. (A) Suspect gastric pathology (i.e. ulcer). (P) I have recommended, After d/w pt regarding risks and benefits as well as possible side effects,drug interactions and adverse reactions, pt accepts samples of PROTONIX per orders. Pt also accepts referral to [facility] for complete abdominal ultrasound. Return office visit if symptoms persist or worsen; I have alerted the patient to call if high fever, dehydration, marked weakness, fainting, incre ased abdominal pain, blood in stool or vomit. documented in this encounter Nursing Notes 02/07/2004 2:15 PM CDT >> TALI JASMINE 02/07/04 2:19 pm Jewell Lambert presents for referral for ultrasound. Initial BP 110/64 LMP . BP completed using cuff size: regular. Tali Jasmine MA documented in this encounter Plan of Treatment Not on filedocumented as of this encounter Procedures Procedure Name Priority Date/Time Associated Diagnosis Comme nts HC US ABDOMEN Routine 02/13/2004 10:46 AM Abdominal pain, Resu lts for this COMPLETE CDT epigastric procedure are i n the results section. documented in this encounter Results SONO ABDOMEN COMPLETE (02/13/2004 10:46 AM CDT) Anatomical Region Laterality Modality Other Specimen (Source) Anatomical Collection Method Collection Time Re ceived Time Location / / Volume Laterality 02/13/2004 10:46 AM CDT Impressions 02/14/2004 10:08 AM CDT COMPLETE ABDOMINAL ULTRASOUND ?? CLINICAL HISTORY: ??Abdominal pain. ?? FINDINGS: ??The liver, biliary tree and gallbladder are normal. ??No gallstones. ??Visualized portions of the pancreas, spleen and both kidneys are normal. ? IMPRESSION: Normal exam. Pedro Burt MD SPECIAL IMAGING STUDIES documented in this encounter Visit Diagnoses Diagnosis Abdominal pain, epigastric - Primary Esophageal reflux documented in this encounter Care Teams Paver Layer Relationship Specialty Start Date End Date Pedro Burt MD PCP - General 10/19/02 09/12/13 [address] [id number] documented as of this encounter
--- OUTSIDE RECORDS SUMMARY | 2022-04-10 23:07 | XMS_ITS | Encounter Summary ---
:1980 Author Organization [facility] Address [address] [place] [address] Care Team Providers Name Role Phone Pedro Burt MD Primary Care Provider Reason for Visit Reason Comments Refill Request Encounter Details Date Type Department Care Team Description 11/16/2003 Refill [facility] Marnie Muñoz, Refill Request Kristine MARTINS [address] [place] [address] [place] [address] [phone] Social History Tobacco Use Types Packs/Day Years Used Date Smoking Tobacco: Every Day Cigarettes 5 Comments: less than 1/2 pack per day Alcohol Use Standard Drinks/Week Comments No 0 (1 standard drink = 0.6 oz pure alcoho l) Sex Assigned at Date Recorded Not on file documented as of this encounter Miscellaneous Notes Telephone Encounter - 11/16/2003 11:59 PM CDT >> ARIEL EVERETT Fri Nov 16, 2003 5:24 PM Routed to primary MD. >> BIANCA RAIN WedNov 16, 2003 8:56 AM >> CALL RECEIVED. Contact: pharmacy documented in this encounter Plan of Treatment Not on filedocumented as of this encounter Visit Diagnoses Not on filedocumented in this encounter Care Teams Sales Center Manager Relationship Specialty Start Date End Date Pedro Burt MD PCP - General 10/19/02 09/12/13 [address] [id number] documented as of this encounter
--- OUTSIDE RECORDS SUMMARY | 2022-04-10 23:07 | XMS_ITS | Encounter Summary ---
:1980 Author Organization [facility] Address [address] [place] [address] Care Team Providers Name Role Phone Pedro Burt MD Primary Care Provider Reason for Visit Reason Comments Care Encounter Details Date Type Department Care Team Description 03/26/2003 Office Visit [facility] Shravan Park SUPERVIS [address] [facility] MD Stephen PREG (Primary Dx) [place] [address] [place] [address] Social History Tobacco Use Types [...] Sign Reading Time Taken Comments Blood Pressure 104/64 03/26/2003 4:00 PM TELEPHONE ORDER SUPERVISOR Pulse - - Temperature - - Respiratory Rate - - Oxygen Saturation - - Inhaled Oxygen Concentration - - Weight 64.2 kg (141 lb 8 oz) 03/26/2003 4:00 PM TELEPHONE ORDER SUPERVISOR Height - - Body Mass Index 22.84 10/30/2002 2:00 PM CDT documented in this encounter Progress Notes Shravan Park - 01/30/2010 6:19 PM CDT Doing well. PHONE ORDER SUPERVISOR documented in this encounter Nursing Notes 03/26/2003 4:00 PM CST >> EH ALTAMIRANO 03/26/2003 4:29 pm nurse assisted visit Eh Altamirano RN. >> EH ALTAMIRANO 03/26/2003 4:17 pm Had episode of UC's over the weekend but subisded. Eh Altamirano RN documented in this encounter Plan of Treatment Not on filedocumented as of this encounter Visit Diagnoses Diagnosis Supervision of normal first - Primary documented in this encounter Care Teams Senior Applications Architect Relationship Specialty Start Date End Date Pedro Burt MD PCP - General 10/19/02 09/12/13 [address] [id number] documented as of this encounter
--- OUTSIDE RECORDS SUMMARY | 2022-04-10 23:07 | XMS_ITS | Encounter Summary ---
:1980 Author Organization [place] Address [address] [place] [address] Care Team Providers Name Role Phone Pedro Burt MD Primary Care Provider Encounter Details Date Type Department Care Team Description 02/20/2003 Orders Only [facility] SUP ERVIS NORMAL 1ST PREG; [facility] SCREENING NEC [address] [phone] Social History Tobacco Use Types Packs/Day Years [...] Procedure Name Priority Date/Time Associated Diagnosis Comme [facility] SONO PREG COMPLETE Routine 02/20/2003 Supervis Normal 1s t Results for this (METRO) Preg procedure are in the Screening results section. Nec documented in this encounter Results SONO PREG COMPLETE (METRO) (02/20/2003) Anatomical Region Laterality Modality Ultrasound Impressions 02/20/2003 Complete obstetrical ultrasound using realtime transabdominal scanning No gross anomalies noted; ??sonogr aphic evidence of possible evolving intrauterine growth restriction. AFV-normal BPP-6/8 THOMAS EM M.D. Narrative 02/20/2003 ULTRASOUND - COMPLETE OB (18+) Referring Provider: Shravan Park MD Clinic: [facility] Disk: 183 INDICATIONS FOR ULTRASOUND: Present Conditions: Small for gestation (SGA) CLINICAL INFORMATION LMP: 81Nik22 ??sure EDC: 84Wie49 ??EGA: 31.7wks Previous US: yes Location: [place] ? EDC: [id number] ?correspond ?? MEASUREMENTSm BPD: 7.7cm ??MA: 30w5d HC: 28.0cm ??MA: 30w5d ? AC: 25.8 cm ??MA: 29w6d FL: 6.1cm ?? MA: 31w1d ? Hum: 5.5 cm ??MA: 31w5d FL/AC:23.3% ?? FL/BPD:78.3% ?? HC/AC:1.0 9 ?? CI:80% FHR:160bpm-reg ?? JUANITA:12.4cm wnl ?? SD r atio:2.78 nl EFW: 1535g ??Percentile: 42% Mean: 1848g ??Weight Differential: EFW 1 SD below mean SURVEY Type: Ordonez ?Presentation: Ce phalic, spine up ? Placenta location: posterior and fundal ?? Grade: I ? 4ChHrt: wnl ? Outflow tract:NV ?Arches: NV Umb cord: 3v ? Insertion: wnl ?Abdomen: wnl ? Nuch/Neck: wnl ? Spine: wnl ? Di aphragm: wnl Stomach: wnl ? Kidneys: wnl ? Bl adder: wnl ? Head: wnl ? Ventricles: wnl ? Ce rebellum: wnl Profile: NV ? Face: NV ?Lips: NV Arms: wnl ?Legs: wnl ?Hands: Fis alicia ?Feet: noted Gender: female ? Maternal Adnexa: NA BIOPHYSICAL PROFILE [place] JUANITA: 2 Activity: 2 Tone: 2 ??Total: 10/29 ? Shravan Park MD SPECIAL IMAGING STUDIES documented in this encounter Visit Diagnoses Diagnosis Supervision of normal first Other screening Other specified screening documented in this encounter Care Teams Support Staff Relationship Specialty Start Date End Date Pedro Burt MD PCP - General 10/19/02 09/12/13 [address] [id number] documented as of this encounter
--- OUTSIDE RECORDS SUMMARY | 2022-04-10 23:07 | XMS_ITS | Encounter Summary ---
:1980 Author Organization [place] Address [facility] [place] [address] Care Team Providers Name Role Phone Pedro Burt MD Primary Care Provider Encounter Details Date Type Department Care Team Description 08/27/2004 Office Visit [facility] [place], NO SHOW (Primary Dx) [place] [address] [place], [place] SERVICE [address] [address] [facility] [phone] [address] [place], [place] [address] (Wo rk) Social History Tobacco Use Types Packs/Day Years Used Date Smoking Tobacco: Every Day Cigarettes 5 Comments: less than 1/2 pack per day Alcohol Use Standard Drinks/Week Comments No 0 (1 standard drink = 0.6 oz pure alcoho l) Sex Assigned at Date Recorded Not on file documented as of this encounter Progress Notes [place] - 08/27/2004 11:15 AM CDT NO SHOW NASTYGRAM SENT documented in this encounter Plan of Treatment Not on filedocumented as of this encounter Visit Diagnoses Diagnosis NO SHOW - Primary documented in this encounter Care Teams Exceptional Needs Teacher Relationship Specialty Start Date End Date Pedro Burt MD PCP - General 10/19/02 09/12/13 [address] [id number] documented as of this encounter
--- OUTSIDE RECORDS SUMMARY | 2022-04-10 23:07 | XMS_ITS | Encounter Summary ---
:1980 Author Organization [place] Address [address] [place] [address] Care Team Providers Name Role Phone Pedro Burt MD Primary Care Provider Reason for Visit Reason Comments Anxiety Encounter Details Date Type Department Care Team Description 03/14/2003 Office Visit [facility] [place], ANXIETY ST ATE NOS (Primary Dx); [facility] [place] Gregorio Moore MD DEPRESSIVE DISORDER NEC [address] [place] [address] [place] [address] [place], [place] [phone] (Wo rk) [address] [phone] Social History Tobacco Use Types Packs/Day Years Used Date Smoking Tobacco: Every Day Cigarettes 5 Comments: less than 1/2 pack per day Alcohol Use Standard Drinks/Week Comments No 0 (1 standard drink = 0.6 oz pure alcoho l) Sex Assigned at Date Recorded Not on file documented as of this encounter Last Filed Vital Signs Vital Sign Reading Time Taken Comments Blood Pressure 112/72 03/14/2003 10:30 AM CDT Pulse 90 03/14/2003 10:30 AM CDT Temperature - - Respiratory Rate 20 03/14/2003 10:30 AM CDT Oxygen Saturation - - Inhaled Oxygen Concentration - - Weight 63 kg (139 lb) 03/14/2003 10:30 AM CDT Height - - Body Mass Index 22.44 10/30/2002 2:00 PM CDT documented in this encounter Progress Notes 03/14/2003 10:30 AM CDT pt is a 23 year old female who is seen here to day with c/o anxiety and panic attacks since 3 yrs,say s her heart races,gets choking sensation and feels lump in the throat,mainly when she is in the crowd ,or when meeting new people,and sometimes feels this at night also. pt also c/o depressive symptoms on and off for 3 yrs but more so in the past 3-4 mths. c/o feeling sad,decreased motivation,decreased energy. Diminished interest in activities-yes Appetite is ok. Has become more emotional,cries for no reasons, Does not want to socialize. No suicidal ideation,or thoughts. Social History Marital Sta tus: Spouse Name: Dmitry Years of Education: 13 Number of children: Social History Main Topics Tobacco Use: Yes Packs/Day: Ye ars: 5 Comment: less than 1/2 pack per day Alcohol Use: No Drug Use: No Comment: has used coccaine,pot,acid in the past,none since 3 yrs after reha b. Sexually Active: Yes Partners with: Male Review of patient's family history indicat es: Heart Maternal Grandmother Psychiatry Mother Comment: anxiety Meds as of 03/14/2003: WELLBUTRIN SR 150 MG OR TBCR 1 TABLET TWICE DAILY 1+1 OR TABS 1 TABLET DAILY ROS: CONSTITUTIONAL:no wt lo ss. PSYCHIATRIC:as above. Blood pressure 112/72, pulse 90, resp. rate 20, weight 139 lbs (63.050 kg ), last menstrual period OB (04/19/03). GENERAL:healthy, alert and no distress HEENT-pupils equal and reactive to light and accommodation, oropharynx clear NECK: NEGATIVE RESP: Normal - CTA without rale s, rhonchi, or wheezing. CV: regular rate and rhythm with normal S1, S2 ; no murmur, rub or gallops EXT:no peripheral edema, peripheral pulses normal ASSESSMENT AND PLAN- 300.00 ANXIETY STATE NOS (pr imary encounter diagnosis) 311 DEPRESSIVE DISORDER NEC Note: check TSH. Plan: started on WELLBUTRIN 1 50mg bid(cat B during pregnency)All SSRIs are cat C during pregnency.The use of this medication has b een discussed in detail with this patient. I've discussed the spectrum of common side effects ,pt sh ould call me if a higher dose is felt necessary, or if there are problems with side-effects. documented in this encounter Nursing Notes 03/14/2003 10:30 AM CDT >> CHI MCKEON 03/14/2003 10:33 am Pt is 35 weeks . Previous on Effexor-did not like. >> CHI MCKEON 03/14/2003 10:30 am Pt c/o panic attacks x 3 years-usually occurr when in a place where there are alot of people. Chi Mckeon RN documented in this encounter Plan of Treatment Not on filedocumented as of this encounter Procedures Procedure Name Priority Date/Time Associated Diagnosis Comme nts HCL TSH W/FREE T4 Routine 03/14/2003 10:51 AM Anxiety State No s Results for this REFLEX CDT procedure are i n the results section. documented in this encounter Results TSH W/FREE T4 REFLEX (03/14/2003 10:51 AM CDT) P athologist Signature TSH 0.81 0.4 - 5.0 [facility] mU/L CLINIC LAB Specimen Anatomical Collection Method Collection Time Receive d Time (Source) Location / / Volume Laterality 03/14/2003 10:51 03/14/2003 AM CDT 10:56 AM CDT Gregorio Muñoz MD LABORATORY Performing Organization Address City/State/ZIP Code Phon e Number [facility] [address] [place] [address] [facility] documented in this encounter Visit Diagnoses Diagnosis Anxiety state, unspecified - Primary Depressive disorder, not elsewhere class ified documented in this encounter Care Teams Mortgage Loan Closer Relationship Specialty Start Date End Date Pedro Burt MD PCP - General 10/19/02 09/12/13 [address] [id number] documented as of this encounter
--- OUTSIDE RECORDS SUMMARY | 2022-04-10 23:07 | XMS_ITS | Encounter Summary ---
:1980 Author Organization [place] Address [address] [place] [address] Care Team Providers Name Role Phone Pedro Burt MD Primary Care Provider Reason for Visit Reason Comments Refill Request Encounter Details Date Type Department Care Team Description 10/01/2003 Refill [facility] Marnie Jain, Refill Request Kristine MARTINS [address] [place] [address] [place], [place] [address] (Wo rk) Social History Tobacco Use Types Packs/Day Years Used Date Smoking Tobacco: Every Day Cigarettes 5 Comments: less than 1/2 pack per day Alcohol Use Standard Drinks/Week Comments No 0 (1 standard drink = 0.6 oz pure alcoho l) Sex Assigned at Date Recorded Not on file documented as of this encounter Miscellaneous Notes Telephone Encounter - 10/01/2003 11:59 PM CDT >> TJ JAIN WedOctober 01, 2003 3:41 PM I filled for 1 mth till she gets appt. >> JENNYFER BALTAZAR Mon October 01, 2003 2:56 PM >> CALL RECEIVED. Contact: last fill 08/20/03. message left pt due for appt. unable to fill med per S.O. protocol due to no visit in the past 6 months documented in this encounter Plan of Treatment Not on filedocumented as of this encounter Visit Diagnoses Not on filedocumented in this encounter Care Teams Jewelry Jobber Relationship Specialty Start Date End Date Pedro Burt MD PCP - General 10/19/02 09/12/13 [address] [id number] documented as of this encounter
--- OUTSIDE RECORDS SUMMARY | 2022-04-10 23:07 | XMS_ITS | Encounter Summary ---
:1980 Author Organization [place] Address [address] [place] [address] Care Team Providers Name Role Phone Pedro Burt MD Primary Care Provider Reason for Visit Reason Comments Refill Request Encounter Details Date Type Department Care Team Description 08/20/2003 Refill M [facility] Marnie Muñoz, Refill Request Kristine Oneil [address] [place] [address] [place] [address] [phone] Social History Tobacco Use Types Packs/Day Years Used Date Smoking Tobacco: Every Day Cigarettes 5 Comments: less than 1/2 pack per day Alcohol Use Standard Drinks/Week Comments No 0 (1 standard drink = 0.6 oz pure alcoho l) Sex Assigned at Date Recorded Not on file documented as of this encounter Miscellaneous Notes Telephone Encounter - 08/20/2003 11:59 PM CIVIL ENGINEERING MANAGER >> JENNYFER BALTAZAR [facility] October 01, 2003 2:51 PM >> CALL RECEIVED. Contact: documented in this encounter Plan of Treatment Not on filedocumented as of this encounter Visit Diagnoses Not on filedocumented in this encounter Care Teams Sat Instructor Relationship Specialty Start Date End Date Pedro Burt MD PCP - General 10/19/02 09/12/13 [address] [place] [address] documented as of this encounter
--- OUTSIDE RECORDS SUMMARY | 2022-04-10 23:07 | XMS_ITS | Encounter Summary ---
:1980 Author Organization [place] Address [address] [place] [address] Care Team Providers Name Role Phone Pedro Burt MD Primary Care Provider Encounter Details Date Type Department Care Team Description 04/05/2003 Orders Only [facility] SUP ERVIS NORMAL 1ST PREG; [facility] SCREENING NEC [address] [phone] Social History Tobacco Use [...] Procedure Name Priority Date/Time Associated Diagnosis Comme [facility] SONO PREG COMPLETE Routine 04/05/2003 Supervis Normal 1s t Results for this (METRO) Preg procedure are in the Screening results section. Nec documented in this encounter Results SONO PREG COMPLETE (METRO) (04/05/2003) Anatomical Region Laterality Modality Ultrasound Impressions 04/05/2003 Complete transabdominal obstetric ultrasound. Gross survey within normal limits. Reass uring biophysical profile, ??normal ammiotic fluid volume, satisfactory interval growth. CONCEPCION PARK M.D. Narrative 04/05/2003 ULTRASOUND - COMPLETE OB (18+) Referring Provider: Concepcion Park MD Clinic: [facility] Disk: [id number] INDICATIONS FOR ULTRASOUND: Present Conditions: third tr-screen (EFW, Bpp, JUANITA, SD ratio ) Small for gestation (SGA). CLINICAL INFORMATION LMP: [id number] ??sure EDC: 26Bsp37 ??EGA: 38.0wks Previous US: Yes Location: [place] ? EDC: 45Snk86 ?? correspond ?? MEASUREMENTS BPD: 9.0cm ??MA: 36w3d HC: 31.7cm ??MA: 35w4d ?AC: 31.3c m ??MA: 35w2d FL: 6.9cm ?? MA: 35w4d ?Hum: 6.2c m ??MA: 35w6d FL/AC:22.1% ?? FL/BPD:77.1% ?? HC/AC:1.0 1 ?? CI:90% FHR:137bpm-reg ?? JUANITA:14.1cm wnl ?? SD r atio:2.00 nl EFW: 2748g ??Percentile: 42-50% Mean: 3016g ??Weight Differential: EFW w ithin 1SD; exaggerated due to high CI SURVEY Type: Ordonez ?Presentation: Ce phalic, spine right ? Placenta location: posterior and fundal ?? Grade: III ? 4ChHrt: wnl ? Outflow tract:wnl ?Arches: wnl Umb cord: 3v ? Insertion: wnl ?Abdomen: wnl ? Nuch/Neck: wnl ? Spine: wnl ? Di aphragm: wnl Stomach: wnl ? Kidneys: wnl ? Bl adder: wnl ? Head: wnl ? Ventricles: wnl ? Ce rebellum: NV Profile: wnl ? Face: wnl ?Lips: wnl Arms: wnl ?Legs: wnl ?Hands: Fis alicia ?Feet: noted Gender: female ? Maternal Adnexa: NA BIOPHYSICAL PROFILE Breathin JUANITA: 2 Activity: 2 Tone: 2 ??Total: 12/29 Concepcion Park MD SPECIAL IMAGING STUDIES documented in this encounter Visit Diagnoses Diagnosis Supervision of normal first Other screening Other specified screening documented in this encounter Care Teams Interactive Designer Relationship Specialty Start Date End Date Pedro Burt MD PCP - General 10/19/02 09/12/13 [address] [id number] documented as of this encounter
--- OUTSIDE RECORDS SUMMARY | 2022-04-10 23:07 | XMS_ITS | Encounter Summary ---
:1980 Author Organization [place] Address [address] [place] [address] Care Team Providers Name Role Phone Pedro Burt MD Primary Care Provider Reason for Visit Reason Comments Care thick, green mucous discharg e Encounter Details Date Type Department Care Team Description 03/15/2003 Telephone [facility] Shravan Park Pre yohan Care (Maik polk MD green mucous discharge) [address] [address] Social History Tobacco Use Types Packs/Day Years Used Date Smoking Tobacco: Every Day Cigarettes 5 Comments: less than 1/2 pack per day Alcohol Use Standard Drinks/Week Comments No 0 (1 standard drink = 0.6 oz pure alcoho l) Sex Assigned at Date Recorded Not on file documented as of this encounter Miscellaneous Notes Telephone Encounter - 03/15/2003 11:59 PM CDT >> SHRAVAN PARK Fri Mar 16, 2003 1:25 PM o'k >> ZEUS JOY Sis Mar 15, 2003 2:16 PM >> CALL RECEIVED. Contact: FYI- Pn pt 35 weeks calling today. Pt states she had an U/S yesterday - low amniotic fluid. Pt states tod ay she has noticed a very thick,green mucous discharge when she last went to the . Pt denies any other symptoms. Per MD - pt to go to [facility] L&D to be checked. [facility] notified and records faxed. Ptinstructed to go to [facility] now. Zeus Joy RN documented in this encounter Plan of Treatment Not on filedocumented as of this encounter Visit Diagnoses Not on filedocumented in this encounter Care Teams Mission Assessment Specialist Relationship Specialty Start Date End Date Pedro Burt MD PCP - General 10/19/02 09/12/13 [address] [id number] documented as of this encounter
--- OUTSIDE RECORDS SUMMARY | 2022-04-10 23:07 | XMS_ITS | Encounter Summary ---
:1980 Author Organization [place] Address [address] [place] [address] Care Team Providers Name Role Phone Pedro Burt MD Primary Care Provider Encounter Details Date Type Department Care Team Description 03/14/2003 Orders Only [facility] SUP ERVIS NORMAL 1ST PREG; [facility] POOR GRTH-ANTEPART [address] [phone] Social History Tobacco Use [...] Procedure Name Priority Date/Time Associated Diagnosis Comme [facility] SONO PREG COMPLETE Routine 03/14/2003 Supervis Normal 1s t Results for this (METRO) Preg procedure are in the Poor results section . Grth-Antepart documented in this encounter Results SONO PREG COMPLETE (METRO) (03/14/2003) Anatomical Region Laterality Modality Ultrasound Impressions 03/14/2003 Complete transabdominal obstetric ultrasound. Gross survey within normal limits. Reass uring biophysical profile, ??normal ammiotic fluid volume, satisfactory interval growth. . CONCEPCION PAKR M.D. Narrative 03/14/2003 ULTRASOUND - COMPLETE OB (18+) Referring Provider: Concepcion Park MD Clinic: [facility] Disk: 186 INDICATIONS FOR ULTRASOUND: Present Conditions: third tr-screen (EFW, Bpp, JUANITA, SD ratio ) Small for gestation (SGA). CLINICAL INFORMATION LMP: [id number] ??sure EDC: 18Diq01 ??EGA: 34.9wks Previous US: yes Location: [place] ? EDC: 84Plf85 ?? correspond ?? MEASUREMENTS BPD: 8.5cm ??MA: 34w1d HC: 30.2cm ??MA: 33w4d ? AC: 28.6 cm ??MA: 32w4d FL: 6.6cm ?? MA: 34w0d ? Hum: 5.8 cm ??MA: 33w6d FL/AC:23.1% ?? FL/BPD:77.6% ?? HC/AC:1.0 5 ?? CI:86% FHR:153bpm-reg ?? JUANITA:12.2cm wnl ?? SD r atio:3.00 nl EFW: 2156g ??Percentile: 42-50% Mean: 2557g ??Weight Differential: EFW w ithin 1SD SURVEY Type: Ordonez ?Presentation: Ce phalic, spine up ? Placenta location: posterior and fundal ?? Grade: II ? 4ChHrt: wnl ? Outflow tract:wnl ?Arches: wnl Umb cord: 3v ? Insertion: wnl ?Abdomen: wnl ? Nuch/Neck: wnl ? Spine: wnl ? Di aphragm: wnl Stomach: wnl ? Kidneys: wnl ? Bl adder: wnl ? Head: wnl ? Ventricles: wnl ? Ce rebellum: wnl Profile: NV ? Face: NV ? Lips: NV Arms: wnl ?Legs: wnl ?Hands: NV ?Feet: NV Gender: NV ? Maternal Adnexa: NA BIOPHYSICAL PROFILE Breathin JUANITA: 2 Activity: 2 Tone: 2 ??Total: 12/29 Concepcion Park MD SPECIAL IMAGING STUDIES documented in this encounter Visit Diagnoses Diagnosis Supervision of normal first Poor growth, affecting management of mother, antepartum condition or complication documented in this encounter Care Teams Conservation Planner Relationship Specialty Start Date End Date Pedro Burt MD PCP - General 10/19/02 09/12/13 [address] [id number] documented as of this encounter
--- OUTSIDE RECORDS SUMMARY | 2022-04-10 23:07 | XMS_ITS | Encounter Summary ---
:1980 Author Organization [place] Address [facility] [place] [address] Care Team Providers Name Role Phone Pedro Burt MD Primary Care Provider Encounter Details Date Type Department Care Team Description 07/22/2004 Office Visit [facility] [place], AT [facility] Gabi Delgado MD HYPERACT ([facility] [address] [facility] [place], [place] SERVICE [address] [address] [facility] [phone] [address] [place], [place] [address] (Wo rk) Social History Tobacco Use Types Packs/Day Years Used Date Smoking Tobacco: Every Day Cigarettes 5 Comments: less than 1/2 pack per day Alcohol Use Standard Drinks/Week Comments No 0 (1 standard drink = 0.6 oz pure alcoho l) Sex Assigned at Date Recorded Not on file documented as of this encounter Progress Notes [place] - 07/22/2004 2:45 PM CST SUBJECTIVE: Jewell Lambert is a 24 year old female presents today for discussion of symptoms of ADD. She states that she has had considerable problems with concentration at school, following simple tasks at work, she states that she has had problems with following written materials. OBJECTIVE: GENERAL: B/P: Data Unavailable, T: Data Unavailable, P: Data Unavailable, R: Data Unavailable CARDIAC: S1, S2, no gallops, no murmur RESPIRATORY: Lungs are clear to auscultation in all damon. PSYCH: No evidence of gross anxiety, agitation, or depressed affect. Patient has good insight and appropriate judgement. ASSESSMENT/PLAN: #1 Adult Onset ADD Recommend Concerta 18 mg po daily. Return to clinic for recheck in 30 days and to titrate to effect if needed. [place] MD [facility] TRICIAN FRONT documented in this encounter Plan of Treatment Not on filedocumented as of this encounter Visit Diagnoses Diagnosis Attention deficit disorder with hyperact ivity(314.01) - Primary Attention deficit disorder with hyperact ivity documented in this encounter Care Teams Mathematical Engineer Relationship Specialty Start Date End Date Pedro Burt MD PCP - General 10/19/02 09/12/13 [address] [id number] documented as of this encounter
--- OUTSIDE RECORDS SUMMARY | 2022-04-10 23:07 | XMS_ITS | Encounter Summary ---
:1980 Author Organization [place] Address [address] [place] [address] Care Team Providers Name Role Phone Pedro Burt MD Primary Care Provider Reason for Visit Reason Comments Patient Request PA for Concerta Encounter Details Date Type Department Care Team Description 11/22/2003 Telephone [facility] Pedro Burt MD Patient Request (PA for Clinic [place] [address] Concerta) [address] [place], [place] [address] [id number] (Wo rk) Social History Tobacco Use Types Packs/Day Years Used Date Smoking Tobacco: Every Day Cigarettes 5 Comments: less than 1/2 pack per day Alcohol Use Standard Drinks/Week Comments No 0 (1 standard drink = 0.6 oz pure alcoho l) Sex Assigned at Date Recorded Not on file documented as of this encounter Miscellaneous Notes Telephone Encounter - 11/22/2003 11:59 PM CDT >> KAJAL KIM [facility] Nov 22, 2003 11:54 AM >> CALL RECEIVED. Contact: pt. calling, per insurance, will not cover Concerta until clinic calls w/info. PA [facility] . I called # and they ok'd med for 1 year from today. Kajal Kim RN documented in this encounter Plan of Treatment Not on filedocumented as of this encounter Visit Diagnoses Not on filedocumented in this encounter Care Teams Day Treatment Clinician/Art Therapist Relationship Specialty Start Date End Date Pedro Burt MD PCP - General 10/19/02 09/12/13 [address] [facility] [address] documented as of this encounter
--- OUTSIDE RECORDS SUMMARY | 2022-04-10 23:07 | XMS_ITS | Encounter Summary ---
:1980 Author Organization [place] Address [address] [place] [address] Care Team Providers Name Role Phone Pedro Burt MD Primary Care Provider Encounter Details Date Type Department Care Team Description 12/12/2003 Orders Only [facility] Pedro Burt MD DIAGNOSIS NOT YET Clinic [place] [address] [place] [address] DEFINED (Primary Dx) [address] [place], [place] [address] [phone] Social History Tobacco Use Types Packs/Day Years [...] Procedure Name Priority Date/Time Associated Diagnosis Comme [facility] UGI ENDOSCOPY, SIMPLE Routine 12/12/2003 DIAGNOSIS NOT YET DEFINED EXAM documented in this encounter Results UPPER GI ENDOSCOPY,EXAM (12/12/2003) Specimen (Source) Anatomical Location Collection Method / Collectio n Time Received Time / Laterality Volume 12/12/2003 Narrative This result has an attachment that is no t available. Pedro Burt MD PROCEDURES documented in this encounter Visit Diagnoses Diagnosis DIAGNOSIS NOT YET DEFINED - Primary documented in this encounter Care Teams Strickler Attendant Relationship Specialty Start Date End Date Pedro Burt MD PCP - General 10/19/02 09/12/13 [address] [place] [address] documented as of this encounter
--- OUTSIDE RECORDS SUMMARY | 2022-04-10 23:07 | XMS_ITS | Encounter Summary ---
:1980 Author Organization [place] Address [address] [place] [address] Care Team Providers Name Role Phone Pedro Burt MD Primary Care Provider Reason for Visit Reason Comments RECHECK med check Encounter Details Date Type Department Care Team Description 08/13/2004 Office Visit [facility] [place], AT [facility] Gabi Delgado MD HYPERACT (Primary [address] [facility]) [place], [place] SERVICE [address] [address] [facility] [phone] [address] [place], [place] [address] (Wo rk) Social History Tobacco Use Types [...] Sign Reading Time Taken Comments Blood Pressure 118/74 08/13/2004 11:00 AM PROFESSOR CRIMINAL JUSTICE Pulse 76 08/13/2004 11:00 AM PROFESSOR CRIMINAL JUSTICE Temperature - - Respiratory Rate - - Oxygen Saturation - - Inhaled Oxygen Concentration - - Weight 51.3 kg (113 lb) 08/13/2004 11:00 AM PROFESSOR CRIMINAL JUSTICE Height 166.4 cm (5' 5.5) 08/13/2004 11:00 AM PROFESSOR CRIMINAL JUSTICE Body Mass Index 18.52 08/13/2004 11:00 AM PROFESSOR CRIMINAL JUSTICE documented in this encounter Progress Notes [place] - 08/13/2004 11:34 AM CST SUBJECTIVE: Jewell Lambert is a 24 year old female who returns for recheck of her attention deficit hyperactivity disorder. She states she is slightly improved on the 18 mg of Concerta a day but she does continue to have problems with concentration and procedureal tasks. She feels that while the 18 mg of concertais well tolerated it is not achieving its desired effect. OBJECTIVE: GENERAL: B/P: 118/74, T: Data Unavailable, P: 76, R: Data Unavailable CARDIAC: S1, S2, no gallops, no murmur RESPIRATORY: Lungs are clear to auscultation in all damon. ASSESSMENT/PLAN: #1 ADHD Patient not at goal yet. Will increase to 27 mg po daily. RTC or call in 2 weeks for recheck. ESSOR CRIMINAL JUSTICE documented in this encounter Nursing Notes 08/13/2004 11:00 AM CST >> DWIGHT RUIZ 08/13/2004 11:21 am Jewell Lambert presents for med check. Initial BP 118/74 Pulse 76 Ht 5' 5.5 (1.66m) Wt 113 lbs (51.3kg) LMP 07/20/2004 Body Mass Index is 18.51 kg/(m^2). . BP completed using cuff size: regular. Dwight Ruiz LPN documented in this encounter Plan of Treatment Not on filedocumented as of this encounter Visit Diagnoses Diagnosis Attention deficit disorder with hyperact ivity(314.01) - Primary Attention deficit disorder with hyperact ivity documented in this encounter Care Teams Dinkey Engine Firer/Fireman Relationship Specialty Start Date End Date Pedro Burt MD PCP - General 10/19/02 09/12/13 [address] [id number] documented as of this encounter
--- OUTSIDE RECORDS SUMMARY | 2022-04-10 23:07 | XMS_ITS | Encounter Summary ---
:1980 Author Organization [place] Address [address] [place] [address] Care Team Providers Name Role Phone Pedro Burt MD Primary Care Provider Encounter Details Date Type Department Care Team Description 11/22/2003 Telephone [facility] Vickie Burt MD [place] [address] [place] [id number] [place] [address] [phone] Social History Tobacco Use Types Packs/Day Years Used Date Smoking Tobacco: Every Day Cigarettes 5 Comments: less than 1/2 pack per day Alcohol Use Standard Drinks/Week Comments No 0 (1 standard drink = 0.6 oz pure alcoho l) Sex Assigned at Date Recorded Not on file documented as of this encounter Miscellaneous Notes Telephone Encounter - 11/22/2003 11:59 PM CDT >> LEBRON SCHOFIELD Fri Nov 23, 2003 10:54 AM >> CALL RECEIVED. Contact: documented in this encounter Plan of Treatment Not on filedocumented as of this encounter Visit Diagnoses Not on filedocumented in this encounter Care Teams Evp Global Product Leadership Relationship Specialty Start Date End Date Pedro Burt MD PCP - General 10/19/02 09/12/13 [address] [place] [address] documented as of this encounter
--- OUTSIDE RECORDS SUMMARY | 2022-04-10 23:07 | XMS_ITS | Encounter Summary ---
:1980 Author Organization [place] Address [address] [place] [address] Care Team Providers Name Role Phone Pedro Burt MD Primary Care Provider Reason for Visit Reason Comments Refill Request Encounter Details Date Type Department Care Team Description 11/22/2003 Refill [facility] Vickie Burt MD Refill Request [place] [address] [place], [place] [address] [address] [place] [address] [place], [place] [phone] [phone] Social History Tobacco Use Types Packs/Day Years Used Date Smoking Tobacco: Every Day Cigarettes 5 Comments: less than 1/2 pack per day Alcohol Use Standard Drinks/Week Comments No 0 (1 standard drink = 0.6 oz pure alcoho l) Sex Assigned at Date Recorded Not on file documented as of this encounter Miscellaneous Notes Telephone Encounter - 11/22/2003 11:59 PM CDT >> LEBRON [place]CHOFIELD Sis Nov 22, 2003 12:56 PM >> CALL RECEIVED. Contact: documented in this encounter Plan of Treatment Not on filedocumented as of this encounter Visit Diagnoses Not on filedocumented in this encounter Care Teams Gas Station Cashier Relationship Specialty Start Date End Date Pedro Burt MD PCP - General 10/19/02 09/12/13 [address] [place] [address] documented as of this encounter
--- OUTSIDE RECORDS SUMMARY | 2022-04-10 23:07 | XMS_ITS | Encounter Summary ---
:1980 Author Organization [place] Address [address] [place] [address] Care Team Providers Name Role Phone Pedro Burt MD Primary Care Provider Reason for Referral - Closed Specialty Diagnoses / Procedures Referred By Contact Refer red To Contact Diagnoses Abdominal pain, generalized Pedro Burt MD [address] [place] [address] Referral ID Status Reason Start Date Expiration Date Visits Requ ested Visits Authorized [id number] Closed 11/14/2003 05/23/2011 1 1 Reason for Visit Reason Comments Refill Request Encounter Details Date Type Department Care Team Description 11/14/[address] [facility] Pedro Burt MD ATTN DEFICIT NONHYPERACT; Clinic [place] [address] ABDOMINAL PAIN GENERALIZED [address] [place] [address] [phone] Social History Tobacco Use Types Packs/Day Years Used Date Smoking Tobacco: Every Day Cigarettes 5 Comments: less than 1/2 pack per day Alcohol Use Standard Drinks/Week Comments No 0 (1 standard drink = 0.6 oz pure alcoho l) Sex Assigned at Date Recorded Not on file documented as of this encounter Last Filed Vital Signs Vital Sign Reading Time Taken Comments Blood Pressure 100/68 11/14/2003 2:45 PM CDT Pulse - - Temperature - - Respiratory Rate - - Oxygen Saturation - - Inhaled Oxygen Concentration - - Weight 50.8 kg (112 lb) 11/14/2003 2:45 PM CDT Height - - Body Mass Index 18.08 04/30/2003 4:00 PM PASSENGER SCREENER documented in this encounter Progress Notes 11/14/2003 2:45 PM CDT SUBJECTIVE: Jewell Lambert 23 year old female presents for ADD diagnosed by psychiatyr as a child. Griselda colvin is now a mother, who will be going to [employer] school. She is accompnaied by her mother today and con firms pt's lapses in concentration. She also wants to note that the nexium given to her for epigas tric pain has not helped her (although her sister's zantac has). The patient's past medical history, past surgical history, family medical history, and social history are noted and updated in the medic al record. The patient's health habits, as well as social history are updated in the medical record. The patient's medications and allergy list are reviewed and updated in the medical record. ROS: C: NEGATIVE for fever, chills, change in weight I: NEGATIVE for worrisome rashes, moles or lesions E: NEGATIVE for vision changes or irritation E/M: NEGATIVE for ear, mouth and throat problems R: NEGATI VE for significant cough or SOB B: NEGATIVE for masses, tenderness or discharge CV: NEGATIVE for ches t pain, palpitations or peripheral edema GI: NEGATIVE for nausea, abdominal pain, heartburn, or jiang e in bowel habits : NEGATIVE for frequency, dysuria, or hematuria. OBJECTIVE/EXAM: Vital signs as noted LunGS: CTA CV: NSR ABD: S/NT/ND. Pt discomfort not reproducible is noted in midepigastrum to L UQ PSYCH: Pt affect is euthymic. Patient's speech is a bit slow. Patient displays no delusions or randy lucinations. Patient denies any suicidal or homicidal ideation. Patient is not hyperactive nor exeedi ngly distractable, although her short term memory and focus are obviously suboptimal. ASSESSMENT/CHELSI N: 1- ADD. After d/w pt regarding risks and benefits as well as possible side effects, drug interacti ons and adverse reactions, pt accepts prescription for CONCERTA per [employer] orders. F/U in 3 weeks fo r reevaluation. 2- Epigastric pain. Pt accepts referral to [facility] for UGI Endoscopy. documented in this encounter Nursing Notes 11/14/2003 2:45 PM CDT >> INDIA HUSTON 11/14/2003 3:10 pm Pt would like like a rx for Ritalin. Pt would also like to discuss Nexium. Pt states it is not working for her. 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
--- OUTSIDE RECORDS SUMMARY | 2022-04-10 23:07 | XMS_ITS | Encounter Summary ---
:1980 Author Organization [place] Address [address] [place] [address] Care Team Providers Name Role Phone Pedro Burt MD Primary Care Provider Reason for Visit Reason Comments Care Encounter Details Date Type Department Care Team Description 02/19/2003 Office Visit [facility] Shravan Park SUPERVIS [address] [facility] MD Stephen PREG (Primary Dx) [place] [address] [place] [address] Social History Tobacco Use Types [...] Sign Reading Time Taken Comments Blood Pressure 126/74 02/19/2003 1:45 PM CDT Pulse - - Temperature - - Respiratory Rate - - Oxygen Saturation - - Inhaled Oxygen Concentration - - Weight 62.4 kg (137 lb 8 oz) 02/19/2003 1:45 PM CDT Height - - Body Mass Index 22.19 10/30/2002 2:00 PM CDT documented in this encounter Progress Notes [place] - 01/30/2010 6:19 PM CDT Pt. notes anxiety attacks, has had in past, will refer to IM for treatment, discussed SSRI's. documented in this encounter Nursing Notes 02/19/2003 1:45 PM CDT >> EH ALTAMIRANO 02/19/2003 2:03 pm kick count given and explained. Eh Altamirano RN documented in this encounter Plan of Treatment Not on filedocumented as of this encounter Visit Diagnoses Diagnosis Supervision of normal first - Primary documented in this encounter Care Teams Legal Transcriptionist Relationship Specialty Start Date End Date Pedro Burt MD PCP - General 10/19/02 09/12/13 [address] [address] documented as of this encounter
--- OUTSIDE RECORDS SUMMARY | 2022-04-10 23:07 | XMS_ITS | Encounter Summary ---
:1980 Author Organization [facility] Address [address] [place] [address] Care Team Providers Name Role Phone Pedro Burt MD Primary Care Provider Encounter Details Date Type Department Care Team Description 03/15/2003 Orders Only [facility] Eag an Shravan Park DIAGNOSIS NOT YET 1440 [facility] MD Stephen DEFINED (Primary Dx) [address] [id number] Social History Tobacco Use Types Packs/Day Years [...] Priority Date/Time Associated Diagnosis Comme nts SCANNED [facility] [place]. LAB RESULTS Routine 03/15/2003 DIAGNOSIS NOT Y ET DEFINED documented in this encounter Results SCANNED MIS. LAB RESULTS (03/15/2003) Specimen (Source) Anatomical Location Collection Method / Collectio n Time Received Time / Laterality Volume 03/15/2003 Narrative This result has an attachment that is no t available. Shravan Park MD LABORATORY documented in this encounter Visit Diagnoses Diagnosis DIAGNOSIS NOT YET DEFINED - Primary documented in this encounter Care Teams Analysis Mgr Relationship Specialty Start Date End Date Pedro Burt MD PCP - General 10/19/02 09/12/13 [address] [id number] documented as of this encounter
--- OUTSIDE RECORDS SUMMARY | 2022-04-10 23:08 | XMS_ITS | Encounter Summary ---
:1980 Author Organization [facility] Address [address] [place] [address] Care Team Providers Name Role Phone Pedro Burt MD Primary Care Provider Encounter Details Date Type Department Care Team Description 01/17/2003 Orders Only [facility] Eag an Shravan Park DIAGNOSIS NOT YET 1440 [facility] MD Stephen DEFINED (Primary Dx) ZHENG Perdomo [...] Diagnosis Comme nts ABSTRACT [facility] REPORT Routine 01/17/2003 documented in this encounter Results ABSTRACT [facility] REPORT (01/17/2003) Specimen (Source) Anatomical Location Collection Method / Collectio n Time Received Time / Laterality Volume 01/17/2003 Narrative This result has an attachment that is no t available. Shravan Park MD LABORATORY documented in this encounter Visit Diagnoses Diagnosis DIAGNOSIS NOT YET DEFINED - Primary documented in this encounter Care Teams Lan Specialist Relationship Specialty Start Date End Date Pedro Burt MD PCP - General 10/19/02 09/12/13 [address] [id number] documented as of this encounter
--- OUTSIDE RECORDS SUMMARY | 2022-04-10 23:08 | XMS_ITS | Encounter Summary ---
:1980 Author Organization [facility] Address [address] [place] [address] Care Team Providers Name Role Phone Pedro Burt MD Primary Care Provider Encounter Details Date Type Department Care Team Description 01/30/2003 Orders Only [facility] Shravan Park DIAGNOSIS NOT YET [facility] MD Stephen DEFINED (Prim darryl Dx) [place] [address] [place] [phone] Social History Tobacco Use Types Packs/Day Years Used Date Smoking Tobacco: Every Day Cigarettes 5 Comments: less than 1/2 pack per day Alcohol Use Standard Drinks/Week Comments No 0 (1 standard drink = 0.6 oz pure alcoho l) Sex Assigned at Date Recorded Not on file documented as of this encounter Progress Notes 01/30/2003 11:59 PM CDT Addended by: KACY VALERIO on: 03/14/2003,10:07 AM Modules accepted: Order Summary documented in this encounter Plan of Treatment Not on filedocumented as of this encounter Procedures Procedure Name Priority Date/Time Associated Diagnosis Comme nts ABSTRACT [facility] REPORT Routine 03/08/2003 DIAGNOSIS NOT YET DEFINED SCANNED MISC. LAB RESULTS Routine 01/30/2003 DIAGNOSIS NOT Y ET DEFINED documented in this encounter Results ABSTRACT [facility] REPORT (03/08/2003) Specimen (Source) Anatomical Location Collection Method / Collectio n Time Received Time / Laterality Volume 03/08/2003 Narrative This result has an attachment that is no t available. Shravan Park MD LABORATORY SCANNED MISC. LAB RESULTS (01/30/2003) Specimen (Source) Anatomical Location Collection Method / Collectio n Time Received Time / Laterality Volume 01/30/2003 Narrative This result has an attachment that is no t available. Shravan Park MD LABORATORY documented in this encounter Visit Diagnoses Diagnosis DIAGNOSIS NOT YET DEFINED - Primary documented in this encounter Care Teams Oxygen Therapy Technician Relationship Specialty Start Date End Date Pedro Burt MD PCP - General 10/19/02 09/12/13 [address] [id number] documented as of this encounter
--- OUTSIDE RECORDS SUMMARY | 2022-04-10 23:08 | XMS_ITS | Encounter Summary ---
:1980 Author Organization [facility] Address [address] [place] [address] Care Team Providers Name Role Phone Pedro Burt MD Primary Care Provider Reason for Visit Reason Comments Care possible missed AB Encounter Details Date Type Department Care Team Description 10/30/2002 Office Visit [facility] Shravan Park SUPERVIS N [address] [facility] MD Stephen PREG (Primary Dx) [place] [address] [place] [address] Social History Tobacco Use Types [...] Sign Reading Time Taken Comments Blood Pressure 104/54 10/30/2002 2:00 PM CDT Pulse - - Temperature - - Respiratory Rate - - Oxygen Saturation - - Inhaled Oxygen Concentration - - Weight 52.4 kg (115 lb 8 oz) 10/30/2002 2:00 PM CDT Height 167.6 cm (5' 6) 10/30/2002 2:00 PM CDT Body Mass Index 18.64 10/30/2002 2:00 PM CDT documented in this encounter Progress Notes 10/30/2002 2:00 PM CDT SUBJECTIVE: Jewell Lambert is a 22 year old P0, , woman who presents for 1st. OB vist. Pat cal's LMPfrom OB Dating Form was 07/13/2002. Periods are regular q 28- 30 days. Seen in [place] ER f or bleeding. Some cramping. Transfer from [facility]. Current contraception: condoms Ther e is no previous medical history on file. There is no previous surgical history on file. Meds as of 10/30/2002: 1+1 OR TABS 1 TABLET DAILY Review of patient's allergies indicates: No Known D rug * Tobacco Use: Yes Packs/Day: Years: 5 Comment: less than 1/2 pack pe r day Alcohol Use: No Review of Systems CONSTITUTIONAL:NEGATIVE EYES: NEGATIVE ENT/HERVE TH: NEGATIVE RESP: NEGATIVE CV: NEGATIVE GI: NEGATIVE : NEGATIVE MUSCULOSKELATAL: NEGATIVE INTEGUME NTARY/SKIN: NEGATIVE BREAST: NEGATIVE NEURO: NEGATIVE. OBJECTIVE: BP 104/54 Ht 5' 6 (1.676m) Wt 115 lbs 8 oz (52.390 kg) LMP OB (04/19/03) General appearance: Healthy. Skin: Normal. Mental Sta tus: cooperative, normal affect, no gross thought process defects. Abdomen: BS active. Soft, non-tend er, no masses or organomegaly. Pelvis: normal external genitalia, normal groin lymphatics, normal u rethral meatus, normal vaginal mucosa, normal cervix, normal adnexa, no masses or tenderness, uterus 15 week size. Extremities: Normal . Heart Rate 160 ASSESSMENT: First OB vist PLAN: 1) Pre care Discussed genetic testing (maternal serum screen; CVS or ammniocentisis if a ge or genetichistory appropriate). documented in this encounter Nursing Notes 10/30/2002 2:00 PM CDT >> GAIL WILLARD 10/30/2002 2:07 pm Follow up visit from ER. Patient was having bleeding in early . Bright red bleeding that turned to light brown with cramping. Patient still havig cramping but bleeding stopped 10/26/02 (same day as ER visit). Gail Willard RN documented in this encounter Plan of Treatment Not on filedocumented as of this encounter Visit Diagnoses Diagnosis Supervision of normal first - Primary documented in this encounter Care Teams Foundation Coordinator Relationship Specialty Start Date End Date Pedro Burt MD PCP - General 10/19/02 09/12/13 [address] [id number] documented as of this encounter
--- OUTSIDE RECORDS SUMMARY | 2022-04-10 23:08 | XMS_ITS | Encounter Summary ---
:1980 Author Organization [facility] Address [address] [place] [address] Care Team Providers Name Role Phone Doctor, None MD Primary Care Provider Unavailable Reason for Visit Reason Comments Care Encounter Details Date Type Department Care Team Description 10/17/2002 Allied Health/[facility] Care Visit [place] [address] [place] [address] Social History Tobacco Use [...] Sign Reading Time Taken Comments Blood Pressure 94/62 10/17/2002 10:45 AM CDT Pulse - - Temperature - - Respiratory Rate - - Oxygen Saturation - - Inhaled Oxygen Concentration - - Weight 52.4 kg (115 lb 8 oz) 10/17/2002 10:45 AM CDT Height 168.9 cm (5' 6.5) 10/17/2002 10:45 AM CDT Body Mass Index 18.36 10/17/2002 10:45 AM CDT documented in this encounter Progress Notes 10/17/2002 10:45 AM CDT documented in this encounter Nursing Notes 10/17/2002 10:45 AM CDT >> ZEUS GAUTAM 10/17/2002 11:55 am NPN nurse visit. 1st dr visit scheduled for 10/23/[address] Park. Prepregnancy weight 112. Pt will be bringing records with to NPN dr visit. Be Gautam RN documented in this encounter Plan of Treatment Not on filedocumented as of this encounter Procedures Procedure Name Priority Date/Time Associated Comments Diagnosis ZZC [place] Routine 02/05/2003 Supervis Other ASSESSMENT FORM Normal Preg ABO/RH TYPE & SCREEN Routine 10/17/2002 11:50 AM Supervis Othe r Results for this CDT Normal Preg procedure are i n the results section. ZZCL AFF CULTURE, Routine 10/17/2002 11:48 AM Supervis Other R esults for this URINE CDT Normal Preg procedure are i n the results section. CL AFF HEP B SURFACE Routine 10/17/2002 11:48 AM Supervis Othe r Results for this ANTIGEN CDT Normal Preg procedure are i n the results section. CL AFF CBC WITH Routine 10/17/2002 11:48 AM Supervis Other Res ults for this PLATELETS CDT Normal Preg procedure are i n the results section. HCL RUBELLA AB IGG Routine 10/17/2002 11:48 AM Supervis Other Results for this CDT Normal Preg procedure are i n the results section. HCL RPR SCREEN Routine 10/17/2002 11:48 AM Supervis Other Resu lts for this W/REFLEX TO TITER CDT Normal Preg procedure are in the results section. HCL HIV 1 & 2 Routine 10/17/2002 11:48 AM Supervis Other Resul ts for this ANTIBODY CDT Normal Preg procedure are i n the results section. CL HCG, URINE, NURSE Routine 10/17/2002 Supervis Other Resul ts for this BACKOFFICE Normal Preg procedure are i n the results section. documented in this encounter Results [place] ASSESSMENT FORM (02/05/2003) Narrative This result has an attachment that is no t available. Shravan Park MD EVALUATION AND MGMT ABO/RH TYPE & SCREEN (METRO) (10/17/2002 11:50 AM CDT) Analysis Performed At Patho logist Time Signature ABO/Rh(D) B [facility] ABO/Rh(D) Pos [facility] Antibody Neg [place] Screen [facility] Specimen 10/20/2002 [place] Expires [facility] Specimen Anatomical Collection Method Collection Time Receive d Time (Source) Location / / Volume Laterality 10/17/2002 11:50 10/17/2002 AM CDT 11:55 AM CDT Shravan Park MD LABORATORY Performing Organization Address City/State/ZIP Code Phon e Number M [facility] [address] [address] [facility] CULTURE, URINE (10/17/2002 11:48 AM CDT) Patholo gist Method Time Signature Specimen Midstream [place] Description Urine [facility] Culture Micro No growth [facility] Report status FINAL [place] [id number] [facility] Specimen Anatomical Collection Method Collection Time Receive d Time (Source) Location / / Volume Laterality 10/17/2002 11:48 10/17/2002 AM CDT 11:53 AM CDT Shravan Park MD LABORATORY Performing Organization Address City/State/ZIP Code Phon e Number [facility] [address] [address] [facility] HIV-1/HIV-2, SCREEN (10/17/2002 11:48 AM CDT) Analysis Performed At Patho logist Time Signature HIV 1&2 Negative NEG [facility] Antibody [facility] Specimen Anatomical Collection Method Collection Time Receive d Time (Source) Location / / Volume Laterality 10/17/2002 11:48 10/17/2002 AM CDT 11:53 AM CDT Shravan Park MD LABORATORY Performing Organization Address City/State/ZIP Code Phon e Number [facility] [address] [place], [place] [phone] [place] [address] LABS RPR SCREEN W/REFLEX TO TITER (10/17/2002 11:48 AM CDT) Analysis Performed At Patho logist Time Signature Rapid Plasma Negative NEG [facility] Reagin [facility] Specimen Anatomical Collection Method Collection Time Receive d Time (Source) Location / / Volume Laterality 10/17/2002 11:48 10/17/2002 AM CDT 11:53 AM CDT Shravan Park MD LABORATORY Performing Organization Address City/State/ZIP Code Phon e Number [facility] [address] [place], [place] [phone] [place] [address] LABS RUBELLA AB IGG (10/17/2002 11:48 AM CDT) P athologist Signature Rubella PITER 66 IU/mL [facility] Comment: Interpretation: Positive, Immun e Specimen Anatomical Collection Method Collection Time Receive d Time (Source) Location / / Volume Laterality 10/17/2002 11:48 10/17/2002 AM CDT 11:53 AM CDT Shravan Park MD LABORATORY Performing Organization Address [facility] Phon e Number [facility] [address] [place], [place] [phone] [place] [address] LABS HEP B SURFACE ANTIGEN (10/17/2002 11:48 AM CDT) Analysis Performed At Patho logis Time Signature Hep B Surface Negative NEG [facility] LABS Specimen Anatomical Collection Method Collection Time Receive d Time (Source) Location / / Volume Laterality 10/17/2002 11:48 10/17/2002 AM CDT 11:53 AM CDT Shravan Park MD LABORATORY Performing Organization Address [facility] Code Phon e Number [phone] [place] [address] LABS (ABNORMAL) CBC WITH PLATELETS (10/17/2002 11:48 AM CDT) Analysis Performed At Patho logis Time Signature WBC 6.0 4.0 - 11.0 [facility] 10e[facility]/L [facility] RBC Count 4.45 3.8 - 5.2 [facility] 10e12/L [facility] Hemoglobin 11.6 (L) 11.7 - [facility] 15.7 g/dL [facility] Hematocrit 36.6 35.0 - [facility] 47.0 % [facility] MCV 82 78 - 100 [place] fl [facility] MCH 26.2 (L) 26.5 - [facility] 33.0 pg [facility] MCHC 31.8 (L) 32.0 - [facility] 36.0 g/dL [facility] RDW 16.7 (H) 10.0 - [facility] 15.0 % [facility] Platelet Count 260 150 - 450 [place] 10e9/L [facility] Comment: Results confirmed by repeat mahendra t Specimen Anatomical Collection Method Collection Time Receive d Time (Source) Location / / Volume Laterality 10/17/2002 11:48 10/17/2002 AM CDT 11:53 AM CDT Shravan Park MD LABORATORY Performing Organization Address City/State/ZIP Code Phon e Number [facility] [address] [place], [place] [address] [address] [facility] HCG, URINE, NURSE BACKOFFICE (10/17/2002) P athologist Signature HCG Qual Urine positive Specimen (Source) Anatomical Location Collection Method / Collectio n Time Received Time / Laterality Volume Urine specimen 10/17/2002 (specimen) Shravan Park MD LABORATORY documented in this encounter Visit Diagnoses Diagnosis Supervision of other normal - Primary documented in this encounter Care Teams Collar Fuser Relationship Specialty Start Date End Date Doctor, None, PCP - General 07/09/01 10/18/02 documented as of this encounter
--- OUTSIDE RECORDS SUMMARY | 2022-04-10 23:08 | XMS_ITS | Clinical Summary ---
:1980 Author Organization [facility] [place] [address] Care Team Providers Name Role Phone Buck Young MD Primary Care Provider Allergies Active Allergy Reactions Severity Noted Date Comments Venlafaxine Analogues Hallucinations 09/12/2007 Odd reaction Spice Flavor Hives 02/27/2009 [place] Medications Medication Sig Dispensed Refills Start Date End Date Status hydrOXYzine HCl Take 1-2 tablets 30 tablet 1 07/01/2017 Active (ATARAX) 25 mg by mouth every 4 tabletIndications: hours if needed Panic attack for Anxiety or Other (Specify) (panic attack). cetirizine (ZYRTEC) 10 TAKE 1 TABLET BY 30 tablet 2 10/11/2017 Active mg tabletIndications: MOUTH ONCE DAILY Environmental allergies IF NEEDED (ALLERGIES). ALPRAZolam (XANAX) 0.25 Take 1 tablet by 10 tablet 0 8 Active mg tabletIndications: mouth at bedtime Panic attack, Insomnia, if needed for idiopathic Anxiety. Vitamin B-1 100 mg Take 100 mg by 0 08/10/2020 Active tablet mouth once daily. Active Problems Problem Noted Date PTSD (post-traumatic stress disorder) 04/06/2017 Brief psychotic disorder 04/06/2017 Encounter related to worker's compensation claim 10/26 Acne 07/04/2014 Pain medication agreement 02/21/2013 Overview: With Dr. Shepherd. Freda 30 mg twice daisy ly (60/month). oxycondone 5 mg every four hours as needed (60/month) utox 05/2014 as expected. 08/28/2015: utox as expected. 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 Will switch to celexa. ADHD (attention deficit hyperactivity disorder) 2008 Overview: Difficulty concentrating in past per p atient. Feb 2011 - patient lost prescriptions that I gave in advance. From now on will give only one month prescription at a time. If patient loses prescription a gain, no refill will be given. 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 Major depressive disorder, single episode, moderate Resolved Problems Problem Noted Date Resolved Date Hyperglycemia 02/28/2009 05/07/2010 Hyponatremia 02/28/2009 05/07/2010 Tobacco abuse 02/27/2009 12/27/2012 Immunizations Name Administration Dates Next Due Influenza Virus, Unspecified 03/26/2017, 03/11/2016, 014, 04/08/2010, 03/02/2009, 04/06/2008 Influenza, IIV3 (Age 6-35 mos) 03/02/2009 Influenza, IIV3 (Age >=3 years) 05/31/2013, 03/02/2009, 03/24 Influenza, IIV4 03/26/2017, 03/11/2016 Influenza, IIV4 (=>6mos) MDV 03/09/2016, 03/13/2015 Influenza, Live, Intranasal Laiv3 04/08/2010 Influenza,LAIV4 Live Intranasal 04/08/2010 (Flumist) Pneumococcal Poly,23-Valent 03/02/2009 (Pneumovax) Td (Age >=7 Years) 05/06/2006 Tdap 01/18/2017, 04/23/2007 Family History Medical History Relation Name Comments Good Health Father Other Maternal Grandfather AAA Good Health Maternal Grandmother Good Health Mother Good Health Paternal Grandfather Good Health Paternal Grandmother Psychiatric illness Sister Relation Name Status Comments Father Alive Maternal Grandfather Maternal Grandmother Alive Mother Alive Paternal Grandfather Alive Paternal Grandmother Alive Sister Alive Social History Tobacco Use Types Packs/Day Years Used Date Current Every Day Smoker Cigarettes 0.5 15 Smokeless Tobacco: Never Used Tobacco Cessation: Counseling Given: Yes Alcohol Use Standard Drinks/Week Comments No 0 (1 standard drink = 0.6 oz pure alcoho l) Sex Assigned at Date Recorded Not on file Obstetrics History Para Term AB IAB SAB Ectopic Multiple Living Live Births 4 1 1 1 1 Date Outcome GA Total Labor/2nd/3rd Weight Sex Delivery Anes PTL Divya A 1 A5 Name Clin Labor SAB 2003 Term Last Filed Vital Signs Vital Sign Reading Time Taken Comments Blood Pressure 120/82 08/04/2021 4:17 PM CDT Pulse 114 08/04/2021 4:17 PM CDT Temperature 36.9 ??C (98.4 ??F) 01/06/2019 10:51 AM CDT Respiratory Rate 16 12/06/2017 3:46 PM CDT Oxygen Saturation 100% 08/04/2021 4:17 PM CDT Inhaled Oxygen Concentration - - Weight 55.2 kg (121 lb 9.6 oz) 08/04/2021 4:17 PM CDT Height 165.1 cm (5' 5) 08/04/2021 4:17 PM CDT Body Mass Index 20.24 08/04/2021 4:17 PM CDT Plan of Treatment Health Maintenance Due Date Last Done Comments COVID-19 vaccine series (#1) 1980 Hepatitis C screening for age 0902/18/2000 18-79 Pneumococcal series for age 19-64 03/02/2010 03/02/2009 (2 - PCV) Pap test for age 21-65 06/17/2017 06/17/2012, 06/17/2012, 03/20/2010, Additional history exists Influenza for age 9-49 01/22/2022 03/26/2017, 03/26/2017, 03/11/2016, Additional history exists BMI (ht and wt on same day) for 08/04/2022 08/04/2021, 11/0 12/2017, age 18+ 12/06/2017, Additional history exists Depression screening for age 12+ 08/04/2022 08/04/2021, , 03/08/2018, Additional history exists Tetanus booster 01/18/2027 01/18/2017, 04/23/2007, 05/06/2006 Tdap Completed 01/18/2017, 04/23/2007 Medical Devices Implanted Type Area Spa Technician Device Shelf Model / Identifier Expiration Serial / Lot Date Vessel Guard Preclude 5x6cm - [id number] Spine W.Alondra Manzanares A nd [id number] / Implanted: Qty: 1 on 02/27/2009 at [facility] / [id number] Results Not on filefrom Last 3 Months Insurance Payer Benefit Plan / Subscriber ID Effective Phone Address T ype Group Dates 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 VICTIMS [id number] 2017-Pre [address] [employer] [address] [place] [address] 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 WC SENTRY [id number] 2007-Pres [address] [place] [address] MEDICARE PART A MEDICARE PART A [id number] 2009-Prese ATTN: CLAIMS - HB USE ONLY HB ONLY nt [address] [place] [address] MEDICARE PART B MEDICARE PART B [id number] 2009-Prese ATTN: CLAIMS - HB USE ONLY HB ONLY nt [address] [place] [address] MEDICARE - PB MEDICARE PB ONLY [id number] 2009-Prese ATTN: CLAIMS USE ONLY nt [address] [place] [address] JULIETA RENDON MA [id number] 2021-Prese [address] [place] [address] JosebarryJewell Personal/Family Self 1980 [address]Home) [place] [address] Jewell Lambert Workers Comp Self [id number]Home) [place] [address] Advance Directives Latest Code Status on File Code Status Date Activated Date Inactivated Comments Full Code 04/21/2017 9:34 AM 04/23/2017 4:12 PM Full Code 04/07/2017 7:20 AM 04/09/2017 3:52 PM Full Code 02/27/2009 8:46 AM 03/04/2009 6:33 PM Care Teams Event Representative Relationship Specialty Start Date End Date Buck Young MD PCP - General Family Practice 10/14/211999 [place] [address]
--- OUTSIDE RECORDS SUMMARY | 2022-04-10 23:08 | XMS_ITS | Encounter Summary ---
:1980 Author Organization [facility] Address [address] [place] [address] Care Team Providers Name Role Phone Pedro Burt MD Primary Care Provider Reason for Visit Reason Comments Care Encounter Details Date Type Department Care Team Description 01/05/2003 Office Visit [facility] Shravan Park SUPERVIS N [address] [facility] MD Stephen PREG (Primary Dx) [place] [address] [place] [address] Social History Tobacco Use Types [...] Sign Reading Time Taken Comments Blood Pressure 110/60 01/05/2003 4:30 PM CDT Pulse - - Temperature - - Respiratory Rate - - Oxygen Saturation - - Inhaled Oxygen Concentration - - Weight 58.3 kg (128 lb 8 oz) 01/05/2003 4:30 PM CDT Height - - Body Mass Index 20.74 10/30/2002 2:00 PM CDT documented in this encounter Progress Notes Shravan Park - 01/30/2010 6:19 PM CDT Doing well. documented in this encounter Nursing Notes 01/05/2003 4:30 PM CDT >> CHARIS HARRIS 01/05/2003 4:55 pm Here for care. documented in this encounter Plan of Treatment Not on filedocumented as of this encounter Visit Diagnoses Diagnosis Supervision of normal first - Primary documented in this encounter Care Teams Cobbler Apprentice Relationship Specialty Start Date End Date Pedro Burt MD PCP - General 10/19/02 09/12/13 [address] [id number] documented as of this encounter
--- OUTSIDE RECORDS SUMMARY | 2022-04-10 23:08 | XMS_ITS | Encounter Summary ---
:1980 Author Organization [place] Address [address] [place] [address] Care Team Providers Name Role Phone Pedro Burt MD Primary Care Provider Reason for Visit Reason Comments Care Encounter Details Date Type Department Care Team Description 11/27/2002 Office Visit [facility] Shravan Park SUPERVIS N [address] [facility] MD Stephen PREG (Primary Dx) [place] [address] [place] [address] Social History Tobacco Use Types [...] Sign Reading Time Taken Comments Blood Pressure 98/60 11/27/2002 3:00 PM CDT Pulse - - Temperature - - Respiratory Rate - - Oxygen Saturation - - Inhaled Oxygen Concentration - - Weight 54.4 kg (120 lb) 11/27/2002 3:00 PM CDT Height - - Body Mass Index 19.37 10/30/2002 2:00 PM CDT documented in this encounter Progress Notes Shravan Park - 01/30/2010 6:19 PM CDT Doing well. documented in this encounter Nursing Notes 11/27/2002 3:00 PM CDT >> ZEUS GAUTAM 11/27/2002 3:09 pm . Be Gautam RN documented in this encounter Plan of Treatment Not on filedocumented as of this encounter Visit Diagnoses Diagnosis Supervision of normal first - Primary documented in this encounter Care Teams Special Procedure Tech Relationship Specialty Start Date End Date Pedro Burt MD PCP - General 10/19/02 09/12/13 [address] [id number] documented as of this encounter
--- OUTSIDE RECORDS SUMMARY | 2022-04-10 23:08 | XMS_ITS | Encounter Summary ---
:1980 Author Organization [place] Address [address] [place] [address] Care Team Providers Name Role Phone Pedro Burt MD Primary Care Provider Reason for Visit Reason Comments Care Encounter Details Date Type Department Care Team Description 02/05/2003 Office Visit [facility] Shravan Park SUPERVIS O THER NORMAL PREG; [facility] MD Stephen URINARY FREQU [place] [address] [place] [address] Social History Tobacco Use Types [...] Sign Reading Time Taken Comments Blood Pressure 114/64 02/05/2003 3:15 PM CDT Pulse - - Temperature - - Respiratory Rate - - Oxygen Saturation - - Inhaled Oxygen Concentration - - Weight 60.3 kg (133 lb) 02/05/2003 3:15 PM CDT Height - - Body Mass Index 21.47 10/30/2002 2:00 PM CDT documented in this encounter Progress Notes Shravan Park - 01/30/2010 6:19 PM CDT Some dysuria, ua/uc. documented in this encounter Nursing Notes 02/05/2003 3:15 PM CDT >> GAIL WILLARD 02/05/2003 4:05 pm LEE Willard RN >> GAIL WILLARD 02/05/2003 3:34 pm Patient here for PN visit. Patient is also c/o urgency, frequency, a different feeling with urination Patient has a history of uti's and symptoms feel the same as in the past. aGil Willard RN documented in this encounter Plan of Treatment Not on filedocumented as of this encounter Procedures Procedure Name Priority Date/Time Associated Comments Diagnosis HCL OB HEMOGLOBIN Routine 02/05/2003 4:15 PM Supervis Other Re sults for this CDT Normal Preg procedure are i n the results section. HCL GLUCOSE; 1 HR Routine 02/05/2003 4:15 PM Supervis Other Re sults for this POST CDT Normal Preg procedure are i n the results section. HCL URINALYSIS WITH Routine 02/05/2003 4:15 PM Urinary Frequen cy Results for this MICROSCOPIC CDT procedure are i n the results section. documented in this encounter Results OB HEMOGLOBIN (02/05/2003 4:15 PM CDT) athologist Signature Hemoglobin 11.6 g/dL [facility] Specimen Anatomical Collection Method Collection Time Receive d Time (Source) Location / / Volume Laterality 02/05/2003 4:15 PM 3 4:20 CDT PM CDT Shravan Park MD LABORATORY Performing Organization Address City/State/ZIP Code Phon e Number [facility] [address] [place], [place] [address] [address] [facility] (ABNORMAL) UA WITH MICRO (02/05/2003 4:15 PM CDT) [facility] gist Method Time Signature Color Urine Yellow [facility] Appearance Urine Clear [facility] Glucose Urine Negative NEG mg/dL [facility] Bilirubin Urine Negative NEG [facility] Ketones Urine Trace (A) NEG mg/dL [facility] Specific [place] 1.025 1.001 - [place] Urine 1.035 [facility] pH Urine 6.5 5.0 - 7.0 [place] pH [facility] Protein Albumin Negative NEG mg/dL [facility] Urobilinogen 0.2 0.2 - 1.0 [place] Urine EU/dL [facility] Nitrite Urine Negative NEG [facility] Blood Urine Small (A) NEG [facility] Leukocyte Negative NEG [place] Esterase Urine [facility] Source Midstream [place] Urine [facility] WBC Urine 2-5 0 - 2 [place] Abnorm Result /HPF [facility] RBC Urine 2-5 0 - 2 [place] Abnorm Result /HPF [facility] Squamous EPI Moderate (A) FEW /LPF [facility] Bacteria Urine Moderate (A) NEG /HPF [facility] Mucous Urine Present (A) NEG /LPF [facility] Specimen Anatomical Collection Method Collection Time Receive d Time (Source) Location / / Volume Laterality 02/05/2003 4:15 PM 3 4:20 CDT PM CDT Shravan Park MD LABORATORY Performing Organization Address City/[facility]/ZIP Code Phon e Number [place] [address], [place] [address] [address] [facility] GLUCOSE; 1 HR POST (02/05/2003 4:15 PM CDT) P athologist Signature Glu Gest Screen 124 60 - 140 [place] 1hr 50g mg/dL [facility] Specimen Anatomical Collection Method Collection Time Receive d Time (Source) Location / / Volume Laterality 02/05/2003 4:15 PM 3 4:20 CDT PM CDT Shravan Park MD LABORATORY Performing Organization Address City/[facility] Phon e Number [place] [address] [place], [place] [address] [address] [facility] documented in this encounter Visit Diagnoses Diagnosis Supervision of other normal Urinary frequency documented in this encounter Care Teams Petroleum Engineering Professor Relationship Specialty Start Date End Date Pedro Burt MD PCP - General 10/19/02 09/12/13 [address] [id number] documented as of this encounter
--- OUTSIDE RECORDS SUMMARY | 2022-04-10 23:08 | XMS_ITS | Encounter Summary ---
:1980 Author Organization [facility] Address [address] [place] [address] Care Team Providers Name Role Phone Pedro Burt MD Primary Care Provider Encounter Details Date Type Department Care Team Description 11/27/2002 Orders Only [facility] SUP ERVIS NORMAL 1ST PREG; [facility] SCREENING NEC [address] [phone] Social History Tobacco Use [...] Procedure Name Priority Date/Time Associated Diagnosis Comme [facility] SONO PREG COMPLETE Routine 11/27/2002 Supervis Normal 1s t Results for this (METRO) Preg procedure are in the Screening results section. Nec documented in this encounter Results SONO PREG COMPLETE (METRO) (11/27/2002) Anatomical Region Laterality Modality Ultrasound Impressions 11/27/2002 Complete pelvic ultrasound using realtime transabdominal scanning technique. No gross anomalies observed; ??cor responding menstrual and sonographic dates. THOMAS EM M.D. Narrative 11/27/2002 ULTRASOUND - COMPLETE OB (18+) Referring Provider: Shravan Park MD Clinic: [facility] Disk: 170 INDICATIONS FOR ULTRASOUND: Present Conditions: Initial Survey (18-26weeks) CLINICAL INFORMATION LMP: [id number] ??sure EDC: 69Qlv01 ??EGA: 19.6wks Previous US: no ?? MEASUREMENTS BPD: 4.4cm ??MA: 19w1d ?Cer: 1 .9cm ??MA: 19w1d HC: 16.3cm ??MA: 19w0d ?AC: 12 .8cm ??MA: 18w3d FL: 3.0cm ?? MA: 19w3d ?Hum: 2 .9cm ??MA: 19w1d FL/AC:na% ?? FL/BPD:na% ?? HC/AC:1.27 ?? CI:83% FHR:157bpm-reg ?JUANITA: wnl EDC: 34Gta66 ?EGA: 19.0wks correspon d SURVEY Type: Ordonez ?Presentation: Va riable ? Placenta location: posterior and mid ? Grade: na ? 4ChHrt: wnl ? Outflow tract:NV ?Arches: NV Umb cord: 3v ? Insertion: wnl ?Abdomen: wnl ? Nuch/Neck: wnl ? Spine: wnl ? Di aphragm: wnl Stomach: wnl ? Kidneys: wnl ? Bl adder: wnl ? Head: wnl ? Ventricles: wnl ? Ce rebellum: wnl Profile: wnl ? Face: wnl ?Lips: wnl Arms: wnl ?Legs: wnl ?Hands: Fis alicia ?Feet: wnl Gender: NV ? Maternal Adnexa: Wnl ? Shravan Park MD SPECIAL IMAGING STUDIES documented in this encounter Visit Diagnoses Diagnosis Supervision of normal first Other screening Other specified screening documented in this encounter Care Teams Car Changer Relationship Specialty Start Date End Date Pedro Burt MD PCP - General 10/19/02 09/12/13 [address] [id number] documented as of this encounter
[2022-04-10 23:10] LABS: Basophils Absolute Auto 0.02 K/uL (0.00-0.30); Basophils Percent Auto 0.3 % (0.0-3.0); Eosinophils Absolute Auto 0.07 K/uL (0.00-0.50); Hematocrit 38.6 % (33.0-51.0); Hemoglobin* 12.8 gm/dL (12.0-16.0); Immature Granulocytes Abs Auto 0.02 K/uL (0.00-0.30); Immature Granulocytes Pct Auto 0.3 %; Lymphocytes Percent Auto 11.7 % (20-44); Mean Corpuscular HGB Conc 33 gm/dL (32-36); Mean Corpuscular Hemoglobin 31 pg (26-34); Mean Corpuscular Volume 94 fL (80-100); Monocytes Percent Auto 6.3 % (0.0-11.0); Neutrophils Percent Auto 80.4 % (42.0-72.0); Platelet Count* 215 K/uL (140-440); RDW Coefficient of Variation % 12.4 % (11.5-15.5); White Blood Count* 7.33 K/uL (4.50-11.00)
[2022-04-10 23:11] LABS: Slide Review Reflex No
[2022-04-10] MEDS: 0.9 % SODIUM CHLORIDE 1000 ml 1,000 ML IV (23:11)
--- OUTSIDE RECORDS SUMMARY | 2022-04-10 23:12 | XMS_ITS | Encounter Summary ---
:1980 Author Organization [place] Address [address] [place] [address] Care Team Providers Name Role Phone Pedro Burt MD Primary Care Provider Reason for Visit Reason Comments Care Encounter Details Date Type Department Care Team Description 04/05/2003 Office Visit [facility] Shravan Park SUPERVIS N [address] Maik Mitchell MD PREG (Martha Koch) [place] [address] [address] Social History Tobacco Use Types [...] Sign Reading Time Taken Comments Blood Pressure 130/70 04/05/2003 1:30 PM BRICKLAYER APPRENTICE Pulse - - Temperature - - Respiratory Rate - - Oxygen Saturation - - Inhaled Oxygen Concentration - - Weight 65.7 kg (144 lb 12 oz) 04/05/2003 1:30 PM BRICKLAYER APPRENTICE Height - - Body Mass Index 23.36 10/30/2002 2:00 PM CDT documented in this encounter Progress Notes Shravan Park - 01/30/2010 6:19 PM CDT Doing well. KLAYER APPRENTICE documented in this encounter Plan of Treatment Not on filedocumented as of this encounter Visit Diagnoses Diagnosis Supervision of normal first - Primary documented in this encounter Care Teams Manager Council Relationship Specialty Start Date End Date Pedro Burt MD PCP - General 10/19/02 09/12/13 [address] [id number] documented as of this encounter
[2022-04-10 23:31] LABS: Albumin* 3.8 g/dL (3.3-5.0); Chloride* 103 mmol/L (96-114); Sodium* 134 mmol/L (135-149)
[2022-04-10 23:32] LABS: Potassium* 3.4 mmol/L (3.6-5.1)
[2022-04-10 23:33] LABS: Amylase* 229 U/L (18-89)
[2022-04-10 23:34] LABS: Alkaline Phosphatase* 119 U/L (40-150); Aspartate Amino Transferase* 48 U/L (12-35); Blood Urea Nitrogen* 6 mg/dL (5-24); Carbon Dioxide* 25 mmol/L (20-32); Creatinine* 0.4 mg/dL (0.5-1.5); Est. Creatinine Clearance* 153.95; Estimated Glomerular Filt Rate 128 ml/min; Glucose* 110 mg/dL (60-115); Lipase* 1041 U/L (23-300); Total Protein* 7.4 g/dL (6.0-8.3)
[2022-04-10 23:35] LABS: Alanine Aminotransferase* 21 U/L (4-35); Calcium* 8.6 mg/dL (8.4-10.6)
[2022-04-10 23:39] LABS: Ethanol* < 0.01 % (0.01-0.03)
[2022-04-11] VITALS: BP 151/109; PULSE 88; RESP 16; O2SAT 98
[2022-04-11 01:00] VITALS: BP 166/98; PULSE 91; RESP 16; O2SAT 98
[2022-04-11] MEDS: cefTRIAXone 1 GM in 0.9 % SODIUM CHLORIDE Mini-bag 100 ML IVPB (01:04)
[2022-04-11] MEDS: HYDROmorphone 0.5 mg/0.5 ml inj IVP (01:05)
[2022-04-11] MEDS: ONDANSETRON 2 MG/ML inj 4 MG IVP (01:05)
[2022-04-11 02:00] VITALS: BP 151/104; PULSE 88; RESP 16; O2SAT 98
[2022-04-11 02:30] VITALS: BP 142/101; PULSE 72; RESP 20; TEMP 36.9
== END 2022-04-11 02:30 | disposition home or self-care (01) ==
PROVIDERS: Emergency Provider Internal Medicine; PCP Family Medicine
DX: K85.90 Acute pancreatitis without necrosis or infection, unspecified (principal)
CPT/HCPCS: 36415; 80053; 82077; 82150; 83690; 85025; 94761; 96365; 96375; 99283; 99284; J0696; J1170; J2405; J7030